=== PATIENT | female | born 1940 | race Caucasian/White ===

== ENCOUNTER 2016-08-16 17:22 | Observation (INO) | payer OTHER, MEDICAID ==
--- NOTE | 2016-08-16 17:42 | DR.NAUSEAF ---
HPI - Time Seen Time seen: 17:40 - Primary Care Physician Primary Care Physician: CHARLIE SAMPSON - HPI Comment HPI Comment: PATIENT IS DIZZY AND WEAK. NOT HOLDING DOWN FLUID OR MEDICATIONS. SHE IS VOMITING AND HAVING ABDOMINAL PAIN. ALSO COUGHING, PRODUCTIVE, YELLOW SPUTUM. SHE HAS LOW GRADE FEVER. CHEST IS HURTING. SHE IS BEING UNSTEADY AT HOME ALL DYA. - Complaints Chief Complaint Doctors Comments: NAUSEA, VOMITING, ABDOMINAL PAIN AND DIZZINESS TIMES 2 DAYS. Chief Complaint:: PT C/O , CCC, DIZZY , BEING UNSTEDY , AND VOMITTING... - Reviewed Nurses Notes Reviewed: Yes - Source History Provided: Patient - Mode of Arrival Mode of Arrival: Wheelchair - Timing Onset of Chief Complaint: 08/15/16 - Context Onset: Spontaneous Recent: None History of: None - Quality Quality: Bilious - Associated Signs and Symptoms Abdominal Pain Quality: Cramping Abdominal Pain Location: Diffuse Symptoms: Fever PMH - PMH Past Medical History: Yes Past Medical History: Anemia, Arthritis, COPD, Coronary Artery Disease, Dyslipidemia, GERD, Hypertension, OR Past Surgical History: Yes Surgical History: Abdominal Surgery, Appendectomy, Cholecystectomy, Hysterectomy , Ortho Surgery, Other - Family History History of Family Medical Conditions: No Family Medical History: Cancer, Hypertension - Social History Does patient currently use any type of tobacco product: No Have you used tobacco products in the last 12 months: No Type of Tobacco Use: None Does any household member use tobacco: No Alcohol Use: None Do you use any recreational Drugs:: No Lives With: Alone Lives Where: Home - infectious screening In the last 2 months have you had wt loss of >10#?: NO Have you had fever, night sweats or hemotysis?: No Have you traveled outside the country in the last 6 months?: No Isolation: Standard ROS - Review of Systems Constitutional: Fever, Weakness, Fatigue, Loss of Appetite Eyes: No Symptoms Reported. negative: Eye Pain, Discharge ENTM: Nose Congestion. negative: Ear Pain, Nose Discharge, Throat Pain Respiratoy: Productive Cough (YELLOW SPUTUM), Short of Breath. negative: Wheezing, Hemoptysis Cardiovascular: Chest Pain. negative: Edema, Syncope Gastrointestinal/Abdominal: Abdominal Pain, Nausea, Vomiting Genitourinary: No Symptoms Reported. negative: Dysuria, Frequency, Hematuria Neurological: Headache, Weakness, Dizziness Musculoskeletal: Muscle Pain Integumentary: Dryness Hematologic/Lymphatic: Easy Bruising Endocrine: Increased Thirst, Decreased Appetite. negative: Flushing All Other Systems: Reviewed and Negative PE - Vital Signs Vitals: Temperature 97.5 F Pulse Rate 79 Respiratory Rate 20 Blood Pressure [Left Arm] 187/73 Blood Pressure [Right Arm] 180/73 Blood Pressure 152/80 O2 Sat by Pulse Oximetry 100 - General Limitations: No Limitations General Appearance: Alert - Head Head Exam: Normal Inspection - Eyes Eye exam: Normal Appearance - ENT ENT Exam: Normal External Ear Exam - Neck Neck Exam: Trachea Midline. negative: Tenderness, Meningismus, Lymphadenopathy - Chest Chest Inspection: Symmetric Chest Wall Rise - Respiratory Respiratory Exam: Normal Lung Sounds Bilat Respiratory Exam: Bilateral Rhonchi, Lower Rhonchi - Cardiovascular Cardiovascular Exam: Regular Rate, Normal Rhythm, Normal Heart Sounds - Abdominal Exam Abdominal Exam: Normal Bowel Sounds, Soft, Tenderness Abdominal Tenderness: Diffuse, Moderate - Rectal Rectal Exam: Deferred - External Exam: Female: Deferred : Speculum Exam (Female): Deferred : Bimanual Exam (female): Deferred - Extremities Extremities Exam: Normal Inspection - Back Back Exam: Paraspinal Tenderness - Neurologic Neurological Exam: Alert, Oriented X3 - Psychiatric Psychiatric Exam: Anxious - Skin Skin Exam: Dry MDM - Additional Information Obtained Additional Information Obtained From: Family - Differential Diagnosis Differential Diagnosis: Considerations may Include:: Bowel Obstruction, Gastritis, Pancreatitis, Urinary Tract Infection Course - Treatment Treatment: SEE ORDERS - Consultation Consultation Comments: DISCUSS PATIENT WITH DR. GUERRA. HE WILL ADMIT PATIENT. - Education/Counseling Education/Counseling: Patient, Family, Education Educated On: Treatment, Diagnosis, Needs for Follow Up ROR - Labs Reviewed Laboratory Results Reviewed?: Yes Result Diagrams: 08/16/16 18:20 08/16/16 18:20 Laboratory: WBC 12.7 X10^3/uL (3.6-10.0) H 08/16/16 18:20 RBC 4.23 X10^6/uL (3.5-5.4) 08/16/16 18:20 Hgb 12.1 g/dL (12.0-16.0) 08/16/16 18:20 Hct 36.9 % (36.0-47.0) 08/16/16 18:20 MCV 87.1 fL (80.0-100.0) 08/16/16 18:20 MCH 28.5 pg (27.0-34.0) 08/16/16 18:20 MCHC 32.8 g/dL (33.0-35.0) L 08/16/16 18:20 RDW 16.7 % (11.6-16.5) H 08/16/16 18:20 Plt Count 288 X10^3/uL (150.0-450.0) 08/16/16 18:20 MPV 7.0 fL (7.4-11.0) L 08/16/16 18:20 Neut % 73.7 % (42.0-75.0) 08/16/16 18:20 Lymph % 16.9 % (21.0-51.0) L 08/16/16 18:20 [place] % 8.3 % (0.0-13.0) 08/16/16 18:20 Eos % 0.4 % (0.9-2.9) L 08/16/16 18:20 Baso % 0.7 % (0.2-1.0) 08/16/16 18:20 Neut # 9.4 x10^3/uL (2.2-4.8) H 08/16/16 18:20 Lymph # 2.1 X10^3/uL (1.3-2.9) 08/16/16 18:20 [place] # 1.1 x10^3/uL (0.3-0.8) H 08/16/16 18:20 Eos # 0.0 x10^3/uL (0.0-0.2) 08/16/16 18:20 Baso # 0.1 X10^3/uL (0.0-0.1) 08/16/16 18:20 Absolute Nucleated RBC 0.0 /100WBC 08/16/16 18:20 Sodium 137 mmol/L (136-145) 08/16/16 18:20 Corrected Sodium 137 mmol/L (136-145) 08/16/16 18:20 Potassium 5.7 mmol/L (3.5-5.1) H 08/16/16 18:20 Chloride 101 mmol/L (98-107) 08/16/16 18:20 Carbon Dioxide 27.7 mmol/L (21-32) 08/16/16 18:20 BUN 38 mg/dL (7-18) H 08/16/16 18:20 Creatinine 1.17 mg/dL (0.55-1.02) H 08/16/16 18:20 Est GFR (MDRD) Af Amer 58 (>60) L 08/16/16 18:20 Est GFR (MDRD) Non-Af 48 (>60) L 08/16/16 18:20 Glucose 120 mg/dL (65-99) H 08/16/16 18:20 Calcium 8.9 mg/dL (8.5-10.1) 08/16/16 18:20 Corrected Calcium 9.6 mg/dL (8.5-10.1) 08/16/16 18:20 Total Bilirubin 0.30 mg/dL (0.2-1.0) 08/16/16 18:20 AST 18 Units/L (15-37) 08/16/16 18:20 ALT 49 Units/L (12-78) 08/16/16 18:20 Alkaline Phosphatase 121 Units/L (46-116) H 08/16/16 18:20 Creatine Kinase 55 Units/L (26-192) 08/16/16 18:20 CK-MB (CK-2) 1.2 ng/mL (0-4.0) 08/16/16 18:20 CK/CKMB % Calc 2.2 % (<4) 08/16/16 18:20 Troponin I < 0.02 ng/mL (0-1.5) 08/16/16 18:20 Total Protein 7.1 g/dL (6.4-8.2) 08/16/16 18:20 Albumin 3.1 g/dL (3.4-5.0) L 08/16/16 18:20 Globulin 4.0 g/dL (2.5-4.5) 08/16/16 18:20 Albumin/Globulin Ratio 0.8 Ratio (1.1-2.1) L 08/16/16 18:20 Specimen Type Clean catch urine 08/16/16 19:21 Urine Color Yellow (YELLOW) 08/16/16 19:21 Urine Appearance Hazy (CLEAR) 08/16/16 19:21 Urine pH 6.0 (5.0 - 8.0) 08/16/16 19:21 Ur Specific [place] 1.010 (1.000-1.030) 08/16/16 19:21 Urine Protein 2+ (NEGATIVE) 08/16/16 19:21 Urine Glucose (UA) Negative (NEGATIVE) 08/16/16 19:21 Urine Ketones Negative (NEGATIVE) 08/16/16 19:21 Urine Occult Blood 3+ (NEGATIVE) 08/16/16 19:21 Urine Nitrite Negative (NEGATIVE) 08/16/16 19:21 Urine Bilirubin Negative (NEGATIVE) 08/16/16 19:21 Urine Urobilinogen Normal (NORMAL) 08/16/16 19:21 Ur Leukocyte Esterase 3+ (NEGATIVE) 08/16/16 19:21 Urine RBC 0-3 /HPF (NEGATIVE) 08/16/16 19:21 Urine WBC 11-20 /HPF (NEGATIVE) 08/16/16 19:21 Ur Squamous Epith Cells Rare /HPF (NEGATIVE) 08/16/16 19:21 Urine Bacteria 4+ /HPF (NEGATIVE) 08/16/16 19:21 Ur Culture Indicated? Yes/culture set up 08/16/16 19:21 - XRAY XRAY Interpreted by: Radiologist XRAY Findings: REPORT DISCUSS WITH PATIENT. - EKG Rhythm: NSR (EKG NOTED.) - Diagnosis Discharge Problem: Generalized weakness, Bronchitis Abdominal pain Qualifiers: Abdominal location: generalized Qualified Code(s): R10.84 - Generalized abdominal pain Chest pain Qualifiers: Chest pain type: other chest pain Qualified Code(s): R07.89 - Other chest pain Gastritis Qualifiers: Gastritis type: other gastritis Chronicity: acute Gastritis bleeding: without bleeding Qualified Code(s): K29.00 - Acute gastritis without bleeding - Discharge Plan Disposition: 09 ADMITTED INPATIENT Condition: Stable - Follow ups/Referrals - Instructions
[2016-08-16] MEDS ORDERED: NS 1000 ML 1,000 ML IV ONE (17:56)
[2016-08-16] MEDS ORDERED: ZOFRAN INJ 4 MG VIAL IVP ONE (17:56)
[2016-08-16] MEDS ORDERED: NS 1000 ML 1,000 ML ONE ×2 (17:58→20:04)
[2016-08-16] MEDS ORDERED: ZOFRAN INJ 4 MG VIAL ONE (17:58)
[2016-08-16 18:26] LABS: BASOPHILS # (AUTO) 0.1 X10^3/uL (0.0-0.1); BASOPHILS % (AUTO) 0.7 % (0.2-1.0); EOSINOPHILS % (AUTO) 0.4 % (0.9-2.9); HEMATOCRIT 36.9 % (36.0-47.0); HEMOGLOBIN 12.1 g/dL (12.0-16.0); LYMPHOCYTES # (AUTO) 2.1 X10^3/uL (1.3-2.9); LYMPHOCYTES % (AUTO) 16.9 % (21.0-51.0); MEAN CORPUSCULAR HEMOGLOBIN 28.5 pg (27.0-34.0); MEAN CORPUSCULAR HGB CONC 32.8 g/dL (33.0-35.0); MEAN CORPUSCULAR VOLUME 87.1 fL (80.0-100.0); MONOCYTES # (AUTO) 1.1 x10^3/uL (0.3-0.8); MONOCYTES % (AUTO) 8.3 % (0.0-13.0); NEUTROPHILS # (AUTO) 9.4 x10^3/uL (2.2-4.8); NEUTROPHILS % (AUTO) 73.7 % (42.0-75.0); PLATELET COUNT 288 X10^3/uL (150.0-450.0); RED BLOOD COUNT 4.23 X10^6/uL (3.5-5.4); RED CELL DISTRIBUTION WIDTH 16.7 % (11.6-16.5); WHITE BLOOD COUNT 12.7 X10^3/uL (3.6-10.0)
[2016-08-16 18:40] LABS: BLOOD UREA NITROGEN 38 mg/dL (7-18); CALCIUM 8.9 mg/dL (8.5-10.1); CARBON DIOXIDE 27.7 mmol/L (21-32); CHLORIDE 101 mmol/L (98-107); COR NA(FOR HYPERGLY) 137 mmol/L (136-145); CREATININE 1.17 mg/dL (0.55-1.02); GLUCOSE 120 mg/dL (65-99); SODIUM 137 mmol/L (136-145); TROPONIN I < 0.02 ng/mL (0-1.5); eGFR BLACK RACES 58 (>60); eGFR NON BLACK RACES 48 (>60)
[2016-08-16 18:55] LABS: ALANINE AMINOTRANSFERASE 49 Units/L (12-78); ALBUMIN 3.1 g/dL (3.4-5.0); ALKALINE PHOSPHATASE 121 Units/L (46-116); ASPARTATE AMINO TRANSFERASE 18 Units/L (15-37); CKMB % 2.2 % (<4); COR CA(FOR HYPOALB) 9.6 mg/dL (8.5-10.1); CREATINE KINASE 55 Units/L (26-192); CREATINE KINASE MB 1.2 ng/mL (0-4.0); TOTAL PROTEIN 7.1 g/dL (6.4-8.2)
--- NOTE | 2016-08-16 18:57 | RAD ---
HISTORY: Abdominal pain and nausea and vomiting Study: Acute abdominal series Comparison: Chest x-ray of June 14 Findings: The trachea is midline. The cardiac silhouette is unremarkable. The lungs are clear without focal infiltrate or effusion.There is a right shoulder prosthesis.. Flat plate and upright evaluation of the abdomen demonstrates a normal bowel gas pattern. No pathol ogical soft tissue mass or calcification can be observed. There are bilateral hip prostheses unchang ed in appearance. There is levoscoliosis of the lumbar spine with degenerative disc disease. There a re cholecystectomy clips. IMPRESSION: 1. No acute cardiopulmonary disease. 2. No evidence for acute abdominal pathology identified. Reported By:
[2016-08-16 19:43] LABS: BILIRUBIN,URINE NEGATIVE (NEGATIVE); BLOOD/HEMOGLOBIN,URINE 3+ (NEGATIVE); GLUCOSE, URINE NEGATIVE (NEGATIVE); KETONES,URINE NEGATIVE (NEGATIVE); LEUKOCYTE ESTERASE ,URINE 3+ (NEGATIVE); NITRITES,URINE NEGATIVE (NEGATIVE); PROTEIN,URINE 2+ (NEGATIVE); UROBILINOGEN,URINE NORMAL (NORMAL)
[2016-08-16] MEDS ORDERED: ZOFRAN INJ 4 MG VIAL IVP PRN (19:53)
[2016-08-16 19:58] LABS: APPEARANCE,URINE HAZY (CLEAR); COLOR,URINE YELLOW (YELLOW)
[2016-08-16 19:59] LABS: BACTERIA,URINE 4+ /HPF (NEGATIVE); RBC,URINE 0-3 /HPF (NEGATIVE); SQUAMOUS EPITHELIAL CELL,UR RARE /HPF (NEGATIVE)
[2016-08-16] MEDS ORDERED: ROCEPHIN VIAL 1 GM 1 GM in NS 50 ML IV + SPIKE MINIBAG* 50 ML IV SCH (20:00)
[2016-08-16] MEDS ORDERED: ROCEPHIN 1 GM IV ONE (20:04)
[2016-08-16] MEDS ORDERED: [UNRECOGNIZED DRUG - OTHER] IV ONE (20:04)
[2016-08-16] MEDS: NS 1000 ML 1,000 ML IV SCH (20:07)
[2016-08-16] MEDS ORDERED: NS 50 ML IV + SPIKE MINIBAG* 50 ML IV ONE (20:11)
[2016-08-16] MEDS ORDERED: ROCEPHIN VIAL 1 GM ONE (20:11)
[2016-08-16] MEDS: ROCEPHIN VIAL 1 GM 1 GM in NS 50 ML IV + SPIKE MINIBAG* 50 ML IV SCH (20:12)
[2016-08-16 22:17] VITALS: BMI 28.6
[2016-08-17 00:23] LABS: CKMB % 1.8 % (<4); CREATINE KINASE 60 Units/L (26-192); CREATINE KINASE MB 1.1 ng/mL (0-4.0); TROPONIN I < 0.02 ng/mL (0-1.5)
[2016-08-17] MEDS: NS 1000 ML 1,000 ML IV SCH (05:27)
[2016-08-17 06:23] LABS: ALANINE AMINOTRANSFERASE 38 Units/L (12-78); ALBUMIN 2.4 g/dL (3.4-5.0); ALKALINE PHOSPHATASE 87 Units/L (46-116); ASPARTATE AMINO TRANSFERASE 16 Units/L (15-37); BLOOD UREA NITROGEN 25 mg/dL (7-18); CALCIUM 8.1 mg/dL (8.5-10.1); CARBON DIOXIDE 26.1 mmol/L (21-32); CHLORIDE 108 mmol/L (98-107); COR CA(FOR HYPOALB) 9.4 mg/dL (8.5-10.1); CREATININE 0.91 mg/dL (0.55-1.02); GLUCOSE 92 mg/dL (65-99); SODIUM 140 mmol/L (136-145); TOTAL PROTEIN 5.6 g/dL (6.4-8.2); eGFR BLACK RACES > 60 (>60); eGFR NON BLACK RACES > 60 (>60)
[2016-08-17 06:26] LABS: BASOPHILS % (AUTO) 0.4 % (0.2-1.0); EOSINOPHILS # (AUTO) 0.1 x10^3/uL (0.0-0.2); EOSINOPHILS % (AUTO) 0.9 % (0.9-2.9); LYMPHOCYTES % (AUTO) 26.7 % (21.0-51.0); MEAN CORPUSCULAR HEMOGLOBIN 29.1 pg (27.0-34.0); MEAN CORPUSCULAR HGB CONC 33.5 g/dL (33.0-35.0); MEAN PLATELET VOLUME 7.2 fL (7.4-11.0); MONOCYTES # (AUTO) 0.6 x10^3/uL (0.3-0.8); MONOCYTES % (AUTO) 8.7 % (0.0-13.0); NEUTROPHILS # (AUTO) 4.7 x10^3/uL (2.2-4.8); NEUTROPHILS % (AUTO) 63.3 % (42.0-75.0); PLATELET COUNT 224 X10^3/uL (150.0-450.0); RED BLOOD COUNT 3.44 X10^6/uL (3.5-5.4); RED CELL DISTRIBUTION WIDTH 16.3 % (11.6-16.5); WHITE BLOOD COUNT 7.4 X10^3/uL (3.6-10.0)
[2016-08-17 06:36] LABS: CKMB % 1.8 % (<4); CREATINE KINASE 63 Units/L (26-192); CREATINE KINASE MB 1.1 ng/mL (0-4.0); TROPONIN I < 0.02 ng/mL (0-1.5)
[2016-08-17] MEDS: ROCEPHIN VIAL 1 GM 1 GM in NS 50 ML IV + SPIKE MINIBAG* 50 ML IV SCH (08:18)
[2016-08-17] MEDS: PEPCID 20 MG IV PREMIX* 20 MG/50 ML BAG IV SCH (10:12)
[2016-08-17] MEDS: PROTONIX INJ 40 MG VIAL IVP SCH (10:12)
[2016-08-17] MEDS ORDERED: DUONEB 0.5 MG/3 MG NEB PRN (10:12)
[2016-08-17] MEDS: NORVASC TAB 5 MG PO SCH (11:52)
[2016-08-17] MEDS: COLACE CAP 100 MG PO SCH ×2 (11:52→20:57)
[2016-08-17] MEDS: ULTRAM PO PRN ×2 (11:53→17:42)
[2016-08-17] MEDS: PLAVIX PO SCH (11:53)
[2016-08-17] MEDS: ZESTRIL TAB 10 MG PO SCH ×2 (11:53→20:57)
[2016-08-17] MEDS: COREG TAB 25 MG PO SCH ×2 (11:53→20:57)
[2016-08-17] MEDS: NEXIUM PO SCH (11:53)
[2016-08-17] MEDS: CRESTOR TAB 10 MG PO SCH (20:57)
[2016-08-17] MEDS: SINGULAIR TAB 10 MG PO SCH (20:58)
[2016-08-18] MEDS: NS 1000 ML 1,000 ML IV SCH ×3 (02:44→09:32)
[2016-08-18 06:40] LABS: ALANINE AMINOTRANSFERASE 34 Units/L (12-78); ALBUMIN 2.3 g/dL (3.4-5.0); ALKALINE PHOSPHATASE 83 Units/L (46-116); ASPARTATE AMINO TRANSFERASE 13 Units/L (15-37); BLOOD UREA NITROGEN 16 mg/dL (7-18); CARBON DIOXIDE 24.6 mmol/L (21-32); CHLORIDE 108 mmol/L (98-107); COR CA(FOR HYPOALB) 9.4 mg/dL (8.5-10.1); COR NA(FOR HYPERGLY) 140 mmol/L (136-145); CREATININE 0.77 mg/dL (0.55-1.02); GLUCOSE 114 mg/dL (65-99); SODIUM 140 mmol/L (136-145); TOTAL PROTEIN 5.6 g/dL (6.4-8.2); eGFR BLACK RACES > 60 (>60); eGFR NON BLACK RACES > 60 (>60)
[2016-08-18 06:43] LABS: BASOPHILS % (AUTO) 0.5 % (0.2-1.0); EOSINOPHILS # (AUTO) 0.1 x10^3/uL (0.0-0.2); HEMATOCRIT 30.7 % (36.0-47.0); HEMOGLOBIN 10.2 g/dL (12.0-16.0); LYMPHOCYTES # (AUTO) 1.8 X10^3/uL (1.3-2.9); LYMPHOCYTES % (AUTO) 26.5 % (21.0-51.0); MEAN CORPUSCULAR HEMOGLOBIN 29.1 pg (27.0-34.0); MEAN CORPUSCULAR HGB CONC 33.3 g/dL (33.0-35.0); MEAN CORPUSCULAR VOLUME 87.5 fL (80.0-100.0); MEAN PLATELET VOLUME 7.2 fL (7.4-11.0); MONOCYTES # (AUTO) 0.6 x10^3/uL (0.3-0.8); MONOCYTES % (AUTO) 8.7 % (0.0-13.0); NEUTROPHILS # (AUTO) 4.2 x10^3/uL (2.2-4.8); NEUTROPHILS % (AUTO) 63.3 % (42.0-75.0); PLATELET COUNT 223 X10^3/uL (150.0-450.0); RED BLOOD COUNT 3.51 X10^6/uL (3.5-5.4); RED CELL DISTRIBUTION WIDTH 16.2 % (11.6-16.5); WHITE BLOOD COUNT 6.7 X10^3/uL (3.6-10.0)
[2016-08-18] MEDS: PEPCID 20 MG IV PREMIX* 20 MG/50 ML BAG IV SCH (09:33)
[2016-08-18] MEDS: NEXIUM PO SCH (09:34)
[2016-08-18] MEDS: ZESTRIL TAB 10 MG PO SCH ×2 (09:34→20:23)
[2016-08-18] MEDS: PROTONIX INJ 40 MG VIAL IVP SCH (09:34)
[2016-08-18] MEDS: COLACE CAP 100 MG PO SCH ×2 (09:34→20:23)
[2016-08-18] MEDS: COREG TAB 25 MG PO SCH ×2 (09:34→20:24)
[2016-08-18] MEDS: NORVASC TAB 5 MG PO SCH ×2 (09:34→09:36)
[2016-08-18] MEDS: PLAVIX PO SCH (09:34)
[2016-08-18] MEDS: ROCEPHIN VIAL 1 GM 1 GM in NS 50 ML IV + SPIKE MINIBAG* 50 ML IV SCH (10:30)
[2016-08-18] MEDS: DUONEB 0.5 MG/3 MG NEB SCH ×2 (12:02→16:16)
[2016-08-18] MEDS: ULTRAM PO PRN (15:57)
[2016-08-18] MEDS: CRESTOR TAB 10 MG PO SCH (20:23)
[2016-08-18] MEDS: SINGULAIR TAB 10 MG PO SCH (20:24)
[2016-08-19] MEDS: NS 1000 ML 1,000 ML IV SCH ×3 (00:04→08:39)
[2016-08-19] MEDS: DUONEB 0.5 MG/3 MG NEB SCH ×3 (00:55→05:39)
[2016-08-19] MEDS: ULTRAM PO PRN ×2 (01:31→10:15)
[2016-08-19] MEDS ORDERED: MILK OF MAGNESIA PO PRN (01:34)
[2016-08-19 05:01] LABS: BASOPHILS % (AUTO) 0.5 % (0.2-1.0); EOSINOPHILS # (AUTO) 0.1 x10^3/uL (0.0-0.2); EOSINOPHILS % (AUTO) 1.1 % (0.9-2.9); HEMATOCRIT 32.3 % (36.0-47.0); HEMOGLOBIN 10.8 g/dL (12.0-16.0); LYMPHOCYTES # (AUTO) 1.8 X10^3/uL (1.3-2.9); LYMPHOCYTES % (AUTO) 24.2 % (21.0-51.0); MEAN CORPUSCULAR HEMOGLOBIN 29.2 pg (27.0-34.0); MEAN CORPUSCULAR HGB CONC 33.4 g/dL (33.0-35.0); MEAN CORPUSCULAR VOLUME 87.2 fL (80.0-100.0); MONOCYTES # (AUTO) 0.7 x10^3/uL (0.3-0.8); MONOCYTES % (AUTO) 9.3 % (0.0-13.0); NEUTROPHILS # (AUTO) 4.8 x10^3/uL (2.2-4.8); NEUTROPHILS % (AUTO) 64.9 % (42.0-75.0); PLATELET COUNT 240 X10^3/uL (150.0-450.0); RED CELL DISTRIBUTION WIDTH 15.9 % (11.6-16.5); WHITE BLOOD COUNT 7.4 X10^3/uL (3.6-10.0)
[2016-08-19 05:18] LABS: ALANINE AMINOTRANSFERASE 30 Units/L (12-78); ALBUMIN 2.4 g/dL (3.4-5.0); ALKALINE PHOSPHATASE 93 Units/L (46-116); ASPARTATE AMINO TRANSFERASE 14 Units/L (15-37); BLOOD UREA NITROGEN 15 mg/dL (7-18); CALCIUM 8.1 mg/dL (8.5-10.1); CARBON DIOXIDE 23.2 mmol/L (21-32); CHLORIDE 108 mmol/L (98-107); COR CA(FOR HYPOALB) 9.4 mg/dL (8.5-10.1); COR NA(FOR HYPERGLY) 141 mmol/L (136-145); CREATININE 0.85 mg/dL (0.55-1.02); GLUCOSE 113 mg/dL (65-99); SODIUM 141 mmol/L (136-145); TOTAL PROTEIN 5.9 g/dL (6.4-8.2); eGFR BLACK RACES > 60 (>60); eGFR NON BLACK RACES > 60 (>60)
--- NOTE | 2016-08-19 06:41 | RAD ---
PA and lateral Chest Indication: Bronchitis with shortness of breath Comparison: 08/16/2016 Findings: The trachea is midline. The cardiac silhouette is unremarkable. The lungs remain hyperexpanded with coarsening of the interstitium consistent with COPD. The lungs are clear without focal infiltrate o r effusion. The bony thorax is unremarkable. IMPRESSION: 1. No acute cardiopulmonary abnormality. Reported By:
[2016-08-19] MEDS: PROTONIX INJ 40 MG VIAL IVP SCH ×2 (08:39→08:42)
[2016-08-19] MEDS: PLAVIX PO SCH (08:40)
[2016-08-19] MEDS: NEXIUM PO SCH (08:40)
[2016-08-19] MEDS: ZESTRIL TAB 10 MG PO SCH (08:40)
[2016-08-19] MEDS: PEPCID 20 MG IV PREMIX* 20 MG/50 ML BAG IV SCH (08:40)
[2016-08-19] MEDS: COLACE CAP 100 MG PO SCH (08:40)
[2016-08-19] MEDS: NORVASC TAB 5 MG PO SCH ×2 (08:41)
[2016-08-19] MEDS: COREG TAB 25 MG PO SCH (08:41)
[2016-08-19] MEDS: ROCEPHIN VIAL 1 GM 1 GM in NS 50 ML IV + SPIKE MINIBAG* 50 ML IV SCH (09:15)
[2016-08-19 10:16] VITALS: BP 181/73
== END 2016-08-19 11:35 | disposition home health service (06) ==
LOC: ER 17:36 → MED/SURG 19:45
PROVIDERS: ADMIT Internal Medicine; ATTEND Internal Medicine
DX: R10.84 Generalized abdominal pain (principal); K29.00 Acute gastritis without bleeding; R07.89 Other chest pain; J40 Bronchitis, not specified as acute or chronic; R42 Dizziness and giddiness; R11.2 Nausea with vomiting, unspecified; E78.2 Mixed hyperlipidemia; K21.9 Gastro-esophageal reflux disease without esophagitis; I25.10 Atherosclerotic heart disease of native coronary artery without angina pectoris; M13.89 Other specified arthritis, multiple sites; R06.02 Shortness of breath; B96.1 Klebsiella pneumoniae [K. pneumoniae] as the cause of diseases classified elsewhere; D64.89 Other specified anemias; E87.5 Hyperkalemia; R94.4 Abnormal results of kidney function studies
CPT/HCPCS: 36415; 71020; 74022; 80053; 81001; 82550; 82553; 84484; 85025; 87086; 87088; 87186; 93005; 94640; 94760; 96365; 96367; 96374; 96375; 99284; A4222; C9113; S0028; G0378; J0696; J2405; J7620

== ENCOUNTER → 2016-09-17 | Outpatient (CLI) | payer OTHER, MEDICAID ==
[2016-08-19 10:16] VITALS: BP 181/73
--- NOTE | 2016-09-18 15:36 | MRI ---
HISTORY: Lumbar compression fracture, chronic low back pain Study: MRI lumbar spine without contrast Comparison: July 19, 2016 Technique: Multiplanar multi-sequence MRI of the lumbar spine was obtained. Sagittal T1, sagittal T 2, and stir weighted images, axial T1, and axial T2 images were obtained. Findings: There are compression fractures of L2 and L3 unchanged from the prior examination but with signal ch aracteristics suggesting that the L2 fracture is remote and the L3 fracture to be more recent.. Ther e is a mild compression of the superior aspect of L4 with signal characteristics suggesting that it is recent . There is lumbar levoscoliosis present. The lumbar spine demonstrates otherwise normal al ignment with the expected signal characteristics of the bone marrow. The conus of the cord terminat es normally. T12 -- L1: No evidence for compressive disc disease. The neural foramina are patent. L1 -- L2: Broad-based disk bulging effaces the thecal sac and contributes to foraminal narrowing eric aterally. Mild facet arthropathy is present bilaterally. L2 -- L3: Broad-based disk bulging effaces the thecal sac and contributes along with bilateral facet arthropathy to lateral recess and foraminal narrowing bilaterally L3 -- L4: Mild broad-based disk bulging causes mild thecal sac effacement and contributes along with spondylitic change and facet arthropathy to foraminal narrowing bilaterally. L4 -- L5: Broad-based disc protrusion contributes along with pedicular shortening. Bilateral facet a rthropathy and ligamentous hypertrophy to a relative spinal stenosis with severe lateral recess and foraminal narrowing bilaterally left worse than right. L5 -- S1: Broad-based concentric disk bulging contributes along with spondylitic change to marked la teral recess and foraminal narrowing on the left. The right neural foramen is patent. IMPRESSION: Compression fractures of L2, L3, and L4 as described with the L2 fracture having signal characterist ics suggesting that it is old and the L3 and L4 fractures more recent. The L4 fracture did not appea r to have been present on the prior examination. Evaluation of each disc level detailed above Reported By:
== END ==
LOC: RAD 14:01
PROVIDERS: ATTEND Specialist
DX: S32.020A Wedge compression fracture of second lumbar vertebra, initial encounter for closed fracture (principal); S32.030A Wedge compression fracture of third lumbar vertebra, initial encounter for closed fracture; S32.040A Wedge compression fracture of fourth lumbar vertebra, initial encounter for closed fracture; X58.XXXA Exposure to other specified factors, initial encounter
CPT/HCPCS: 72148

== ENCOUNTER 2016-10-24 16:32 | Inpatient (IN) | payer OTHER, MEDICAID ==
[2016-10-24 19:28] LABS: BASOPHILS % (AUTO) 0.6 % (0.2-1.0); EOSINOPHILS # (AUTO) 0.1 x10^3/uL (0.0-0.2); EOSINOPHILS % (AUTO) 1.8 % (0.9-2.9); HEMATOCRIT 30.2 % (36.0-47.0); HEMOGLOBIN 10.2 g/dL (12.0-16.0); LYMPHOCYTES # (AUTO) 1.6 X10^3/uL (1.3-2.9); LYMPHOCYTES % (AUTO) 19.9 % (21.0-51.0); MEAN CORPUSCULAR HEMOGLOBIN 30.6 pg (27.0-34.0); MEAN CORPUSCULAR HGB CONC 33.9 g/dL (33.0-35.0); MEAN CORPUSCULAR VOLUME 90.3 fL (80.0-100.0); MEAN PLATELET VOLUME 7.4 fL (7.4-11.0); MONOCYTES # (AUTO) 0.7 x10^3/uL (0.3-0.8); MONOCYTES % (AUTO) 9.1 % (0.0-13.0); NEUTROPHILS # (AUTO) 5.5 x10^3/uL (2.2-4.8); NEUTROPHILS % (AUTO) 68.6 % (42.0-75.0); PLATELET COUNT 296 X10^3/uL (150.0-450.0); RED BLOOD COUNT 3.35 X10^6/uL (3.5-5.4); RED CELL DISTRIBUTION WIDTH 14.9 % (11.6-16.5)
[2016-10-24 19:34] LABS: ALANINE AMINOTRANSFERASE 15 Units/L (12-78); ALBUMIN 2.9 g/dL (3.4-5.0); ALKALINE PHOSPHATASE 101 Units/L (46-116); ASPARTATE AMINO TRANSFERASE 13 Units/L (15-37); BLOOD UREA NITROGEN 17 mg/dL (7-18); CALCIUM 8.7 mg/dL (8.5-10.1); CARBON DIOXIDE 26.8 mmol/L (21-32); CHLORIDE 107 mmol/L (98-107); COR CA(FOR HYPOALB) 9.6 mg/dL (8.5-10.1); COR NA(FOR HYPERGLY) 141 mmol/L (136-145); CREATININE 1.08 mg/dL (0.55-1.02); GLUCOSE 115 mg/dL (65-99); SODIUM 141 mmol/L (136-145); TOTAL PROTEIN 6.5 g/dL (6.4-8.2); eGFR BLACK RACES > 60 (>60); eGFR NON BLACK RACES 52 (>60)
[2016-10-24] MEDS: NS 1000 ML 1,000 ML IV SCH (19:47)
[2016-10-24 20:27] LABS: ERYTHROCYTE SEDIMENTATION RATE 33 MM/HOUR (0-20)
[2016-10-24] MEDS: FORTAZ or TAZICEF INJ 1 GM in NS 50 ML IV + SPIKE MINIBAG* 50 ML IV SCH (21:02)
[2016-10-24] MEDS: VANCOMYCIN 1 GM PREMIX (ADDVANTAGE) 250 ML IV SCH (21:03)
[2016-10-24] MEDS: NORCO 5/325 MG TAB PO PRN (21:04)
--- NOTE | 2016-10-24 23:52 | RAD ---
Right hip, two views Indication: Right hip pain and swelling. Comparison: 07/12/2016 Findings: Evaluation of fine bony detail is somewhat limited by generalized osteopenia and superimpo sed soft tissues. No obvious acute fracture or subluxation of the right hip identified. Right hip ar throplasty remains in satisfactory alignment. Old left superior and inferior pubic ramus fractures a re noted. Impression: No obvious acute right hip injury identified. Reported By:
--- NOTE | 2016-10-24 23:56 | VAS ---
HISTORY: Bilateral lower extremity cellulitis Study: Bilateral lower extremity venous Doppler ultrasound Comparison: None TECHNIQUE: Multiple kline scale and color flow Doppler images of the deep venous system were obtaine d of the right and left lower extremity. FINDINGS: The deep venous system of the right and left lower extremities were evaluated from the level of the common femoral vein through the popliteal vein. Normal color flow and augmentation can be observed. In addition, normal compression is seen throughout the deep venous system. IMPRESSION: 1. Negative for DVT. Reported By:
[2016-10-25] MEDS: VANCOMYCIN 1 GM PREMIX (ADDVANTAGE) 250 ML IV SCH ×3 (00:03→22:59)
[2016-10-25] MEDS: FORTAZ or TAZICEF INJ 1 GM in NS 50 ML IV + SPIKE MINIBAG* 50 ML IV SCH ×4 (00:04→22:13)
[2016-10-25] MEDS ORDERED: ZOFRAN INJ 4 MG VIAL IVP PRN (02:56)
[2016-10-25 05:40] LABS: BASOPHILS % (AUTO) 0.6 % (0.2-1.0); EOSINOPHILS # (AUTO) 0.1 x10^3/uL (0.0-0.2); EOSINOPHILS % (AUTO) 1.6 % (0.9-2.9); HEMATOCRIT 26.1 % (36.0-47.0); HEMOGLOBIN 8.8 g/dL (12.0-16.0); LYMPHOCYTES # (AUTO) 1.6 X10^3/uL (1.3-2.9); LYMPHOCYTES % (AUTO) 26.1 % (21.0-51.0); MEAN CORPUSCULAR HEMOGLOBIN 30.6 pg (27.0-34.0); MEAN CORPUSCULAR HGB CONC 33.7 g/dL (33.0-35.0); MEAN CORPUSCULAR VOLUME 90.9 fL (80.0-100.0); MEAN PLATELET VOLUME 7.4 fL (7.4-11.0); MONOCYTES # (AUTO) 0.6 x10^3/uL (0.3-0.8); MONOCYTES % (AUTO) 9.3 % (0.0-13.0); NEUTROPHILS # (AUTO) 3.8 x10^3/uL (2.2-4.8); NEUTROPHILS % (AUTO) 62.4 % (42.0-75.0); PLATELET COUNT 229 X10^3/uL (150.0-450.0); RED BLOOD COUNT 2.87 X10^6/uL (3.5-5.4); RED CELL DISTRIBUTION WIDTH 14.8 % (11.6-16.5); WHITE BLOOD COUNT 6.1 X10^3/uL (3.6-10.0)
[2016-10-25 06:34] LABS: ALANINE AMINOTRANSFERASE 12 Units/L (12-78); ALBUMIN 2.2 g/dL (3.4-5.0); ALKALINE PHOSPHATASE 82 Units/L (46-116); ASPARTATE AMINO TRANSFERASE 12 Units/L (15-37); BLOOD UREA NITROGEN 14 mg/dL (7-18); CARBON DIOXIDE 25.1 mmol/L (21-32); CHLORIDE 110 mmol/L (98-107); COR CA(FOR HYPOALB) 9.4 mg/dL (8.5-10.1); CREATININE 0.88 mg/dL (0.55-1.02); GLUCOSE 103 mg/dL (65-99); SODIUM 143 mmol/L (136-145); TOTAL PROTEIN 5.2 g/dL (6.4-8.2); eGFR BLACK RACES > 60 (>60); eGFR NON BLACK RACES > 60 (>60)
[2016-10-25] MEDS: NORCO 5/325 MG TAB PO PRN ×3 (06:41→19:25)
[2016-10-25 06:51] LABS: ERYTHROCYTE SEDIMENTATION RATE 20 MM/HOUR (0-20)
[2016-10-25] MEDS: LASIX IVP SCH ×2 (10:31→22:14)
[2016-10-25] MEDS: ALBUMIN HUMAN 25%- 100ML 100 ML IV SCH (10:35)
[2016-10-25] MEDS: NS 1000 ML 1,000 ML IV SCH (10:35)
[2016-10-25 22:31] LABS: CREATININE 1.17 mg/dL (0.55-1.02); VANCOMYCIN,TROUGH 22.6 ug/mL (15-20)
[2016-10-25] MEDS: NexIUM PO SCH (22:57)
[2016-10-26] MEDS: NORCO 5/325 MG TAB PO PRN ×4 (01:33→22:28)
[2016-10-26] MEDS: FORTAZ or TAZICEF INJ 1 GM in NS 50 ML IV + SPIKE MINIBAG* 50 ML IV SCH ×3 (05:42→21:12)
[2016-10-26 06:18] LABS: ALANINE AMINOTRANSFERASE 13 Units/L (12-78); ALBUMIN 2.7 g/dL (3.4-5.0); ALKALINE PHOSPHATASE 82 Units/L (46-116); ASPARTATE AMINO TRANSFERASE 9 Units/L (15-37); BLOOD UREA NITROGEN 14 mg/dL (7-18); CALCIUM 8.2 mg/dL (8.5-10.1); CARBON DIOXIDE 28.4 mmol/L (21-32); CHLORIDE 108 mmol/L (98-107); COR CA(FOR HYPOALB) 9.2 mg/dL (8.5-10.1); CREATININE 0.99 mg/dL (0.55-1.02); GLUCOSE 91 mg/dL (65-99); SODIUM 145 mmol/L (136-145); TOTAL PROTEIN 5.7 g/dL (6.4-8.2); eGFR BLACK RACES > 60 (>60); eGFR NON BLACK RACES 58 (>60)
[2016-10-26 06:21] LABS: BASOPHILS % (AUTO) 0.5 % (0.2-1.0); EOSINOPHILS # (AUTO) 0.2 x10^3/uL (0.0-0.2); EOSINOPHILS % (AUTO) 2.4 % (0.9-2.9); HEMOGLOBIN 8.8 g/dL (12.0-16.0); LYMPHOCYTES # (AUTO) 1.7 X10^3/uL (1.3-2.9); MEAN CORPUSCULAR HEMOGLOBIN 31.8 pg (27.0-34.0); MEAN CORPUSCULAR HGB CONC 35.2 g/dL (33.0-35.0); MEAN CORPUSCULAR VOLUME 90.2 fL (80.0-100.0); MEAN PLATELET VOLUME 7.6 fL (7.4-11.0); MONOCYTES # (AUTO) 0.8 x10^3/uL (0.3-0.8); MONOCYTES % (AUTO) 11.4 % (0.0-13.0); NEUTROPHILS # (AUTO) 4.1 x10^3/uL (2.2-4.8); NEUTROPHILS % (AUTO) 60.7 % (42.0-75.0); PLATELET COUNT 234 X10^3/uL (150.0-450.0); RED BLOOD COUNT 2.77 X10^6/uL (3.5-5.4); RED CELL DISTRIBUTION WIDTH 14.8 % (11.6-16.5); WHITE BLOOD COUNT 6.8 X10^3/uL (3.6-10.0)
[2016-10-26] MEDS: VANCOMYCIN HCL 500 MG VIAL 750 MG in D5W 250 ML IV 250 ML IV SCH ×2 (09:19→21:13)
[2016-10-26] MEDS: NexIUM PO SCH (09:20)
[2016-10-26] MEDS: ALBUMIN HUMAN 25%- 100ML 100 ML IV SCH (09:20)
[2016-10-26 10:31] VITALS: BMI 27.6
[2016-10-26] MEDS: NS 1000 ML 1,000 ML IV SCH ×3 (21:15→22:16)
[2016-10-27] MEDS: FORTAZ or TAZICEF INJ 1 GM in NS 50 ML IV + SPIKE MINIBAG* 50 ML IV SCH (05:07)
[2016-10-27] MEDS: NORCO 5/325 MG TAB PO PRN ×2 (05:08→11:10)
[2016-10-27] MEDS: VANCOMYCIN HCL 500 MG VIAL 750 MG in D5W 250 ML IV 250 ML IV SCH (10:05)
[2016-10-27] MEDS: NexIUM PO SCH (10:05)
[2016-10-27] MEDS: ALBUMIN HUMAN 25%- 100ML 100 ML IV SCH (10:05)
[2016-10-27] MEDS ORDERED: LASIX PO ONE (12:40)
[2016-10-27 12:44] VITALS: BP 170/74
[2016-10-27] MEDS ORDERED: PHARMACY COMMENT IV SCH (20:45)
--- NOTE | 2016-10-29 14:15 | PCM.PROG ---
Progress Note - Progress Note for Day of Date: 10/25/16 - Subjective Subjective: Patient is a 76yo female who was admitted as a direct admit with diagnosis of cellulitis to lower extremities bilateral. Physical exam reveal 2+ edema to lower extremities, Left and right led red inflamed with warmth and bruising , Left heel has a stage 1 pressure ulcer as well and right great toe. Due to hypoalbuminemia we will give albumin IV and due to increased swelling start patient on Lasix 40mg IV BID. Vital signs this am 98.9, 74, 18, 93%, 131/ 60. Labs are within normal limits with the exception of RBC 2.87, Hgb 8.8, Hct 26.1, Chloride 110, glucose 103, Calcium 8.0, AST 12, CRP 3.50, Total Protein 5.2, Albumin 2.2, Albumin/Globulin Ratio 0.7. Hip Xray showed no acute right hip injury. Venous Doppler bilateral lower extremity negative for DVT. We are going to continue patient on her current regimen including vancomycin and follow her up in the am with repeat labs - Past Medical Family Social History Past Med/Fam/Surg Hx: No changes since H&P Allergies: Allergies Hydromorphone [From Dilaudid] Allergy (Intermediate, Verified 08/16/16 17:26) breathing problems Meperidine [From Demerol HCl] Allergy (Intermediate, Verified 08/16/16 17:26) RASH Codeine Allergy (Verified 08/16/16 17:26) Prednisone Allergy (Verified 08/16/16 17:26) - Review of Systems ROS: No change since H&P - Vital Signs and I&O's Vital Signs: Temperature 98.6 F Pulse Rate [Left Radial] 76 Pulse Rate [Right Brachial] 70 Respiratory Rate 18 Blood Pressure [Left Arm] 147/65 Blood Pressure [Right Arm] 170/74 Blood Pressure 181/73 O2 Sat by Pulse Oximetry 96 Intake and Output: Intake & Output 10/27/16 10/28/16 10/29/16 10/30/16 11:59 11:59 11:59 11:59 Intake Total 2760 1220 Output Total 1100 1200 Balance 1660 20 - Physical Exam Oriented: Normal Eyes: Normal Ear: Normal Nose: Normal Throat: Normal Respiratory: Normal Cardiovascular: Edema (Lower ext edema 2+ bilateral ) : Normal Auscultation: Bowel Sounds: Normal Palpation: Normal Tenderness: Normal Skin: Red (reveal 2+ edema to lower extremities, Left and right led red inflamed with warmth and bruising , Left heel has a stage 1 pressure ulcer as well and right great toe) Musculoskeletal: Swelling (lower extremity bilat), Tender (lower extremity bilateral), Instability Psychiatric: Normal Mood Description: Calm Affect: Normal Speech Pattern: Clear - Laboratory and Diagnostics Result Diagrams: 10/26/16 03:30 10/26/16 03:30 Labs: 10/24/16 19:05 Blood Blood Culture - Final 10/24/16 19:00 Blood Blood Culture - Final Laboratory WBC 6.8 X10^3/uL (3.6-10.0) 10/26/16 03:30 RBC 2.77 X10^6/uL (3.5-5.4) L 10/26/16 03:30 Hgb 8.8 g/dL (12.0-16.0) L 10/26/16 03:30 Hct 25.0 % (36.0-47.0) L 10/26/16 03:30 MCV 90.2 fL (80.0-100.0) 10/26/16 03:30 MCH 31.8 pg (27.0-34.0) 10/26/16 03:30 MCHC 35.2 g/dL (33.0-35.0) H 10/26/16 03:30 RDW 14.8 % (11.6-16.5) 10/26/16 03:30 Plt Count 234 X10^3/uL (150.0-450.0) 10/26/16 03:30 MPV 7.6 fL (7.4-11.0) 10/26/16 03:30 Neut % 60.7 % (42.0-75.0) 10/26/16 03:30 Lymph % 25.0 % (21.0-51.0) 10/26/16 03:30 [place] % 11.4 % (0.0-13.0) 10/26/16 03:30 Eos % 2.4 % (0.9-2.9) 10/26/16 03:30 Baso % 0.5 % (0.2-1.0) 10/26/16 03:30 Neut # 4.1 x10^3/uL (2.2-4.8) 10/26/16 03:30 Lymph # 1.7 X10^3/uL (1.3-2.9) 10/26/16 03:30 [place] # 0.8 x10^3/uL (0.3-0.8) 10/26/16 03:30 Eos # 0.2 x10^3/uL (0.0-0.2) 10/26/16 03:30 Baso # 0.0 X10^3/uL (0.0-0.1) 10/26/16 03:30 Absolute Nucleated RBC 0.1 /100WBC 10/26/16 03:30 ESR 20 MM/HOUR (0-20) 10/25/16 04:00 Sodium 145 mmol/L (136-145) 10/26/16 03:30 Corrected Sodium TNP 10/26/16 03:30 Potassium 3.6 mmol/L (3.5-5.1) 10/26/16 03:30 Chloride 108 mmol/L (98-107) H 10/26/16 03:30 Carbon Dioxide 28.4 mmol/L (21-32) 10/26/16 03:30 BUN 14 mg/dL (7-18) 10/26/16 03:30 Creatinine 0.99 mg/dL (0.55-1.02) 10/26/16 03:30 Est GFR (MDRD) Af Amer > 60 (>60) 10/26/16 03:30 Est GFR (MDRD) Non-Af 58 (>60) L 10/26/16 03:30 Glucose 91 mg/dL (65-99) 10/26/16 03:30 Calcium 8.2 mg/dL (8.5-10.1) L 10/26/16 03:30 Corrected Calcium 9.2 mg/dL (8.5-10.1) 10/26/16 03:30 Total Bilirubin 0.20 mg/dL (0.2-1.0) 10/26/16 03:30 AST 9 Units/L (15-37) L 10/26/16 03:30 ALT 13 Units/L (12-78) 10/26/16 03:30 Alkaline Phosphatase 82 Units/L (46-116) 10/26/16 03:30 C-Reactive Protein 3.50 mg/L (0-3.0) H 10/25/16 04:00 Total Protein 5.7 g/dL (6.4-8.2) L 10/26/16 03:30 Albumin 2.7 g/dL (3.4-5.0) L 10/26/16 03:30 Globulin 3.0 g/dL (2.5-4.5) 10/26/16 03:30 Albumin/Globulin Ratio 0.9 Ratio (1.1-2.1) L 10/26/16 03:30 Vancomycin Trough 22.6 ug/mL (15-20) H 10/25/16 21:05 Radiology Reviewed: Yes - Plan (1) Cellulitis of both lower extremities Status: Acute Plan: continue vancomycin, repeat labs in the am
== END 2016-10-27 16:05 | disposition home or self-care (01) | DRG 603 ==
LOC: MED/SURG 16:32
PROVIDERS: ADMIT Internal Medicine; ATTEND Internal Medicine
DX: L03.115 Cellulitis of right lower limb (principal); L03.116 Cellulitis of left lower limb; R60.0 Localized edema; M25.451 Effusion, right hip; M25.551 Pain in right hip; I10 Essential (primary) hypertension; E78.2 Mixed hyperlipidemia; D64.89 Other specified anemias; G89.4 Chronic pain syndrome; G62.89 Other specified polyneuropathies; R26.89 Other abnormalities of gait and mobility
CPT/HCPCS: 36415; 73501; 80053; 80202; 82565; 85025; 85652; 86140; 87040; 93970; A4222; P9047; J0713; J1940; J2405; J3370

== ENCOUNTER 2016-10-31 12:02 | Inpatient (IN) | payer OTHER, MEDICAID ==
[2016-10-31 13:44] LABS: BASOPHILS # (AUTO) 0.1 X10^3/uL (0.0-0.1); EOSINOPHILS # (AUTO) 0.1 x10^3/uL (0.0-0.2); EOSINOPHILS % (AUTO) 1.4 % (0.9-2.9); HEMATOCRIT 28.9 % (36.0-47.0); HEMOGLOBIN 9.9 g/dL (12.0-16.0); LYMPHOCYTES # (AUTO) 1.1 X10^3/uL (1.3-2.9); LYMPHOCYTES % (AUTO) 11.2 % (21.0-51.0); MEAN CORPUSCULAR HEMOGLOBIN 30.5 pg (27.0-34.0); MEAN CORPUSCULAR HGB CONC 34.1 g/dL (33.0-35.0); MEAN CORPUSCULAR VOLUME 89.3 fL (80.0-100.0); MEAN PLATELET VOLUME 7.2 fL (7.4-11.0); MONOCYTES # (AUTO) 0.8 x10^3/uL (0.3-0.8); MONOCYTES % (AUTO) 7.9 % (0.0-13.0); NEUTROPHILS # (AUTO) 7.5 x10^3/uL (2.2-4.8); NEUTROPHILS % (AUTO) 78.5 % (42.0-75.0); PLATELET COUNT 275 X10^3/uL (150.0-450.0); RED BLOOD COUNT 3.24 X10^6/uL (3.5-5.4); RED CELL DISTRIBUTION WIDTH 14.4 % (11.6-16.5); WHITE BLOOD COUNT 9.6 X10^3/uL (3.6-10.0)
[2016-10-31 13:52] LABS: ALANINE AMINOTRANSFERASE 18 Units/L (12-78); ALBUMIN 3.1 g/dL (3.4-5.0); ALKALINE PHOSPHATASE 87 Units/L (46-116); ASPARTATE AMINO TRANSFERASE 15 Units/L (15-37); BLOOD UREA NITROGEN 16 mg/dL (7-18); CALCIUM 8.8 mg/dL (8.5-10.1); CARBON DIOXIDE 28.7 mmol/L (21-32); CHLORIDE 100 mmol/L (98-107); COR CA(FOR HYPOALB) 9.5 mg/dL (8.5-10.1); COR NA(FOR HYPERGLY) 138 mmol/L (136-145); CREATININE 0.85 mg/dL (0.55-1.02); GLUCOSE 128 mg/dL (65-99); SODIUM 137 mmol/L (136-145); TOTAL PROTEIN 6.9 g/dL (6.4-8.2); eGFR BLACK RACES > 60 (>60); eGFR NON BLACK RACES > 60 (>60)
--- NOTE | 2016-10-31 13:56 | RAD ---
HISTORY: Shortness of breath Study: Chest two-view Comparison: August 19, 2016 Findings: The heart is enlarged. No definite congestive heart failure is noted. The lungs are hyperinflated co nsistent with COPD. No acute alveolar infiltrates are identified. No pleural effusions are present. The bony thorax is unremarkable with the exception of a right shoulder hemiarthroplasty. IMPRESSION: Cardiomegaly without definite congestive heart failure COPD Reported By:
[2016-10-31] MEDS: LASIX IVP SCH ×2 (14:12→20:25)
[2016-10-31 14:13] LABS: B-TYPE NATRIURETIC PEPTIDE 240 pg/mL (0-79)
[2016-10-31 15:13] LABS: BILIRUBIN,URINE NEGATIVE (NEGATIVE); BLOOD/HEMOGLOBIN,URINE NEGATIVE (NEGATIVE); GLUCOSE, URINE NEGATIVE (NEGATIVE); KETONES,URINE NEGATIVE (NEGATIVE); LEUKOCYTE ESTERASE ,URINE NEGATIVE (NEGATIVE); NITRITES,URINE NEGATIVE (NEGATIVE); PROTEIN,URINE NEGATIVE (NEGATIVE); UROBILINOGEN,URINE NORMAL (NORMAL)
[2016-10-31 15:20] LABS: APPEARANCE,URINE CLEAR (CLEAR); COLOR,URINE PALE YELLOW (YELLOW); RBC,URINE 0-2 /HPF (NEGATIVE); SQUAMOUS EPITHELIAL CELL,UR NEGATIVE /HPF (NEGATIVE)
[2016-10-31 15:21] LABS: AMORPHOUS SEDIMENT,UR TRACE /HPF (NEGATIVE); BACTERIA,URINE NEGATIVE /HPF (NEGATIVE)
--- NOTE | 2016-10-31 16:46 | DR.UPDATE ---
H&P Update History and Physical Update: History and Physical reviewed and patient examined. Changes noted: NO Yes with the following: See attached H&P from office patient admitted with diagnosis of CHF.
[2016-10-31] MEDS: COLACE CAP 100 MG PO SCH (20:25)
[2016-10-31] MEDS: MILK OF MAGNESIA PO SCH (20:26)
[2016-10-31] MEDS: NORCO 5/325 MG TAB PO PRN (22:20)
[2016-11-01 00:18] VITALS: BMI 27.3
[2016-11-01] MEDS: NORCO 5/325 MG TAB PO PRN ×3 (04:49→23:28)
[2016-11-01 05:23] LABS: BASOPHILS # (AUTO) 0.1 X10^3/uL (0.0-0.1); BASOPHILS % (AUTO) 0.8 % (0.2-1.0); EOSINOPHILS # (AUTO) 0.2 x10^3/uL (0.0-0.2); EOSINOPHILS % (AUTO) 2.4 % (0.9-2.9); HEMATOCRIT 27.2 % (36.0-47.0); HEMOGLOBIN 9.3 g/dL (12.0-16.0); LYMPHOCYTES # (AUTO) 1.7 X10^3/uL (1.3-2.9); MEAN CORPUSCULAR HEMOGLOBIN 30.9 pg (27.0-34.0); MEAN CORPUSCULAR HGB CONC 34.2 g/dL (33.0-35.0); MEAN CORPUSCULAR VOLUME 90.3 fL (80.0-100.0); MEAN PLATELET VOLUME 7.6 fL (7.4-11.0); MONOCYTES # (AUTO) 0.9 x10^3/uL (0.3-0.8); MONOCYTES % (AUTO) 11.4 % (0.0-13.0); NEUTROPHILS # (AUTO) 4.8 x10^3/uL (2.2-4.8); NEUTROPHILS % (AUTO) 63.4 % (42.0-75.0); PLATELET COUNT 270 X10^3/uL (150.0-450.0); RED BLOOD COUNT 3.01 X10^6/uL (3.5-5.4); RED CELL DISTRIBUTION WIDTH 14.2 % (11.6-16.5); WHITE BLOOD COUNT 7.6 X10^3/uL (3.6-10.0)
[2016-11-01 05:32] LABS: ALANINE AMINOTRANSFERASE 15 Units/L (12-78); ALBUMIN 2.7 g/dL (3.4-5.0); ALKALINE PHOSPHATASE 80 Units/L (46-116); ASPARTATE AMINO TRANSFERASE 12 Units/L (15-37); BLOOD UREA NITROGEN 13 mg/dL (7-18); CALCIUM 8.5 mg/dL (8.5-10.1); CARBON DIOXIDE 33.2 mmol/L (21-32); CHLORIDE 100 mmol/L (98-107); COR CA(FOR HYPOALB) 9.5 mg/dL (8.5-10.1); CREATININE 0.88 mg/dL (0.55-1.02); GLUCOSE 99 mg/dL (65-99); SODIUM 140 mmol/L (136-145); TOTAL PROTEIN 6.3 g/dL (6.4-8.2); eGFR BLACK RACES > 60 (>60); eGFR NON BLACK RACES > 60 (>60)
--- NOTE | 2016-11-01 06:35 | RAD ---
HISTORY: Congestive heart failure Study: Chest two-view Comparison: October 31, 2016 Findings: The patient is rotated to the left. The heart is enlarged. No congestive heart failure is noted. The lungs are mildly hyperinflated but free of acute alveolar infiltrates. No pleural effusions are brian ntified. The bony thorax is unremarkable with the exception of a right shoulder hemiarthroplasty. IMPRESSION: Cardiomegaly without congestive heart failure Lungs hyperinflated but clear Reported By:
[2016-11-01 07:14] LABS: ERYTHROCYTE SEDIMENTATION RATE 47 MM/HOUR (0-20)
[2016-11-01] MEDS ORDERED: NORCO 5/325 MG TAB PO PRN (09:09)
[2016-11-01] MEDS: NexIUM PO SCH (11:48)
[2016-11-01] MEDS: LASIX PO SCH ×2 (11:49→20:39)
[2016-11-01] MEDS: ZESTRIL TAB 10 MG PO SCH ×2 (11:49→20:39)
[2016-11-01] MEDS: SINGULAIR TAB 10 MG PO SCH (11:49)
[2016-11-01] MEDS: PEPCID TAB 20 MG PO SCH ×2 (11:49→20:40)
[2016-11-01] MEDS: COLACE CAP 100 MG PO SCH ×3 (11:50→21:00)
[2016-11-01] MEDS: PLAVIX PO SCH (11:54)
--- NOTE | 2016-11-01 13:59 | PCM.PROG ---
Progress Note - Progress Note for Day of Date: 11/01/16 - Subjective Subjective: Patient is a 76 yo female who was admitted with CHF. Her lower extremity edema has improved however, she his having difficulty getting up and down she has been seen by Dr. Chang and was awaiting cardiac clearance to under go vetebroplasty. We are going to consult Chang to see if he do can do the surgery while she is in the hospital due to her inability to move without severe pain. Physical therapy tried to work with her today and they were not able to perform in mobility related to the pain. The patient has had an ECHO performed which shows 66% EF, Chest xray shows cardiomegaly without definite congestive heart failure and COPD. EKG is Normal, patient is medically and cardiac cleared for surgery. We are going to continue her on her home medications and follow up in the am with repeat labs and wait for Dr. Chang to see her. Vital signs this am 98.4, 80, 20, 91% on RA, 133/61. Labs are within normal limits with the exception of RBC 3.01m Hgb 9.3, hct 27.2, mono# 0.9, ESR 47, Potassium 3.4, Carbon Dioxide 33.2, AST 12, CRP 26.40, Total Protein 6.3, Albumin 2.7, Albumin/Globulin Ratio 0.8. - Past Medical Family Social History Allergies: Allergies MS Hydromorphone [From Dilaudid] Allergy (Intermediate, Verified 08/16/16 17:26) breathing problems MS Meperidine [From Demerol HCl] Allergy (Intermediate, Verified 08/16/16 17:26) RASH MS Codeine [Codeine] Allergy (Verified 08/16/16 17:26) MS Prednisone [Prednisone] Allergy (Verified 08/16/16 17:26) - Vital Signs and I&O's Vital Signs: 98.4, 80, 20, 91% on RA, 133/61 Intake and Output: Intake & Output 10/30/16 10/31/16 11/01/16 11/02/16 11:59 11:59 11:59 11:59 Intake Total 1100 Output Total 950 Balance 150 - Physical Exam Oriented: Normal Eyes: Normal Ear: Normal Nose: Normal Throat: Normal Respiratory: Normal Cardiovascular: Normal : Normal Auscultation: Bowel Sounds: Normal Palpation: Normal Tenderness: Normal Skin: Bruising (scattered) Musculoskeletal: Instability (pain, patient unable to move without severe pain to back) Psychiatric: Normal Mood Description: Calm Affect: Normal Speech Pattern: Clear, Appropriate - Laboratory and Diagnostics Result Diagrams: 11/01/16 03:15 11/01/16 03:15 Labs: Laboratory WBC 7.6 X10^3/uL (3.6-10.0) 11/01/16 03:15 RBC 3.01 X10^6/uL (3.5-5.4) L 11/01/16 03:15 Hgb 9.3 g/dL (12.0-16.0) L 11/01/16 03:15 Hct 27.2 % (36.0-47.0) L 11/01/16 03:15 MCV 90.3 fL (80.0-100.0) 11/01/16 03:15 MCH 30.9 pg (27.0-34.0) 11/01/16 03:15 MCHC 34.2 g/dL (33.0-35.0) 11/01/16 03:15 RDW 14.2 % (11.6-16.5) 11/01/16 03:15 Plt Count 270 X10^3/uL (150.0-450.0) 11/01/16 03:15 MPV 7.6 fL (7.4-11.0) 11/01/16 03:15 Neut % 63.4 % (42.0-75.0) 11/01/16 03:15 Lymph % 22.0 % (21.0-51.0) 11/01/16 03:15 [place] % 11.4 % (0.0-13.0) 11/01/16 03:15 Eos % 2.4 % (0.9-2.9) 11/01/16 03:15 Baso % 0.8 % (0.2-1.0) 11/01/16 03:15 Neut # 4.8 x10^3/uL (2.2-4.8) 11/01/16 03:15 Lymph # 1.7 X10^3/uL (1.3-2.9) 11/01/16 03:15 [place] # 0.9 x10^3/uL (0.3-0.8) H 11/01/16 03:15 Eos # 0.2 x10^3/uL (0.0-0.2) 11/01/16 03:15 Baso # 0.1 X10^3/uL (0.0-0.1) 11/01/16 03:15 Absolute Nucleated RBC 0.0 /100WBC 11/01/16 03:15 ESR 47 MM/HOUR (0-20) H 11/01/16 03:15 Sodium 140 mmol/L (136-145) 11/01/16 03:15 Corrected Sodium TNP 11/01/16 03:15 Potassium 3.4 mmol/L (3.5-5.1) L 11/01/16 03:15 Chloride 100 mmol/L (98-107) 11/01/16 03:15 Carbon Dioxide 33.2 mmol/L (21-32) H 11/01/16 03:15 BUN 13 mg/dL (7-18) 11/01/16 03:15 Creatinine 0.88 mg/dL (0.55-1.02) 11/01/16 03:15 Est GFR (MDRD) Af Amer > 60 (>60) 11/01/16 03:15 Est GFR (MDRD) Non-Af > 60 (>60) 11/01/16 03:15 Glucose 99 mg/dL (65-99) 11/01/16 03:15 Calcium 8.5 mg/dL (8.5-10.1) 11/01/16 03:15 Corrected Calcium 9.5 mg/dL (8.5-10.1) 11/01/16 03:15 Total Bilirubin 0.30 mg/dL (0.2-1.0) 11/01/16 03:15 AST 12 Units/L (15-37) L 11/01/16 03:15 ALT 15 Units/L (12-78) 11/01/16 03:15 Alkaline Phosphatase 80 Units/L (46-116) 11/01/16 03:15 C-Reactive Protein 56.40 mg/L (0-3.0) H 11/01/16 03:15 B-Natriuretic Peptide 240 pg/mL (0-79) H 10/31/16 13:32 Total Protein 6.3 g/dL (6.4-8.2) L 11/01/16 03:15 Albumin 2.7 g/dL (3.4-5.0) L 11/01/16 03:15 Globulin 3.6 g/dL (2.5-4.5) 11/01/16 03:15 Albumin/Globulin Ratio 0.8 Ratio (1.1-2.1) L 11/01/16 03:15 Specimen Type Clean catch urine 10/31/16 15:05 Urine Color Pale yellow (YELLOW) 10/31/16 15:05 Urine Appearance Clear (CLEAR) 10/31/16 15:05 Urine pH 6.0 (5.0 - 8.0) 10/31/16 15:05 Ur Specific [place] 1.010 (1.000-1.030) 10/31/16 15:05 Urine Protein Negative (NEGATIVE) 10/31/16 15:05 Urine Glucose (UA) Negative (NEGATIVE) 10/31/16 15:05 Urine Ketones Negative (NEGATIVE) 10/31/16 15:05 Urine Occult Blood Negative (NEGATIVE) 10/31/16 15:05 Urine Nitrite Negative (NEGATIVE) 10/31/16 15:05 Urine Bilirubin Negative (NEGATIVE) 10/31/16 15:05 Urine Urobilinogen Normal (NORMAL) 10/31/16 15:05 Ur Leukocyte Esterase Negative (NEGATIVE) 10/31/16 15:05 Urine RBC 0-2 /HPF (NEGATIVE) 10/31/16 15:05 Urine WBC None seen /HPF (NEGATIVE) 10/31/16 15:05 Ur Squamous Epith Cells Negative /HPF (NEGATIVE) 10/31/16 15:05 Amorphous Sediment Trace /HPF (NEGATIVE) 10/31/16 15:05 Urine Bacteria Negative /HPF (NEGATIVE) 10/31/16 15:05 Ur Culture Indicated? No/not indicated 10/31/16 15:05 Radiology Reviewed: Yes EKG Reviewed: Yes - Plan (1) CHF (congestive heart failure) Status: Acute Qualifiers: Congestive heart failure type: C Congestive heart failure chronicity: C Plan: continue lasix (2) Back pain Status: Acute Qualifiers: Back pain location: B Chronicity: C Back pain laterality: B Sciatica presence: S Sciatica laterality: S Plan: norco and ultram PRN and Fentanyl patch, consult chang (3) Dyslipidemia Status: Chronic (4) GERD (gastroesophageal reflux disease) Status: Chronic Qualifiers: Esophagitis presence: E Plan: continue crestor, monitor (5) HTN (hypertension) Status: Chronic Qualifiers: Hypertension type: H Plan: continue lisinopril (6) Coronary artery disease Status: Chronic Qualifiers: Coronary Disease-Associated Artery/Lesion type: [place] artery [place] vs. transplanted heart: [place] heart Associated angina: with stable angina Qualified Code(s): I25.118 - Atherosclerotic heart disease of [place] coronary artery with other forms of angina pectoris Plan: continue coreg
[2016-11-01] MEDS: MILK OF MAGNESIA PO SCH (20:39)
[2016-11-01] MEDS: COREG TAB 12.5 MG PO SCH (20:39)
[2016-11-01] MEDS: CRESTOR TAB 10 MG PO SCH (20:39)
[2016-11-01] MEDS: ULTRAM PO PRN (20:40)
[2016-11-02] MEDS: ULTRAM PO PRN ×2 (05:25→13:28)
[2016-11-02 05:48] LABS: BASOPHILS # (AUTO) 0.1 X10^3/uL (0.0-0.1); BASOPHILS % (AUTO) 0.9 % (0.2-1.0); EOSINOPHILS # (AUTO) 0.2 x10^3/uL (0.0-0.2); EOSINOPHILS % (AUTO) 2.3 % (0.9-2.9); HEMATOCRIT 27.2 % (36.0-47.0); HEMOGLOBIN 9.4 g/dL (12.0-16.0); LYMPHOCYTES # (AUTO) 1.6 X10^3/uL (1.3-2.9); LYMPHOCYTES % (AUTO) 21.8 % (21.0-51.0); MEAN CORPUSCULAR HEMOGLOBIN 30.6 pg (27.0-34.0); MEAN CORPUSCULAR HGB CONC 34.6 g/dL (33.0-35.0); MEAN CORPUSCULAR VOLUME 88.5 fL (80.0-100.0); MEAN PLATELET VOLUME 7.2 fL (7.4-11.0); MONOCYTES # (AUTO) 0.8 x10^3/uL (0.3-0.8); MONOCYTES % (AUTO) 11.3 % (0.0-13.0); NEUTROPHILS # (AUTO) 4.7 x10^3/uL (2.2-4.8); NEUTROPHILS % (AUTO) 63.7 % (42.0-75.0); PLATELET COUNT 294 X10^3/uL (150.0-450.0); RED BLOOD COUNT 3.08 X10^6/uL (3.5-5.4); RED CELL DISTRIBUTION WIDTH 14.2 % (11.6-16.5); WHITE BLOOD COUNT 7.4 X10^3/uL (3.6-10.0)
[2016-11-02 06:01] LABS: ALANINE AMINOTRANSFERASE 15 Units/L (12-78); ALBUMIN 2.6 g/dL (3.4-5.0); ALKALINE PHOSPHATASE 82 Units/L (46-116); ASPARTATE AMINO TRANSFERASE 11 Units/L (15-37); BLOOD UREA NITROGEN 18 mg/dL (7-18); CALCIUM 8.7 mg/dL (8.5-10.1); CARBON DIOXIDE 35.5 mmol/L (21-32); CHLORIDE 102 mmol/L (98-107); COR CA(FOR HYPOALB) 9.8 mg/dL (8.5-10.1); COR NA(FOR HYPERGLY) 143 mmol/L (136-145); CREATININE 0.85 mg/dL (0.55-1.02); GLUCOSE 127 mg/dL (65-99); SODIUM 142 mmol/L (136-145); TOTAL PROTEIN 6.1 g/dL (6.4-8.2); eGFR BLACK RACES > 60 (>60); eGFR NON BLACK RACES > 60 (>60)
--- NOTE | 2016-11-02 07:40 | RAD ---
History: CHF, comparison 11/01/2016 Study: AP chest Findings: The cardiac silhouette is enlarged. The pulmonary vasculature appears at upper limits norm al. There are what appear to be chronic interstitial changes seen. 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 Impression: 1. Cardiomegaly without CHF or pneumonia. 2. Chronic interstitial lung changes. Reported By:
[2016-11-02] MEDS: PEPCID TAB 20 MG PO SCH ×2 (09:09→21:42)
[2016-11-02] MEDS: PLAVIX PO SCH (09:09)
[2016-11-02] MEDS: COREG TAB 12.5 MG PO SCH ×2 (09:10→21:42)
[2016-11-02] MEDS: NexIUM PO SCH (09:10)
[2016-11-02] MEDS: LASIX PO SCH ×2 (09:10→21:42)
[2016-11-02] MEDS: COLACE CAP 100 MG PO SCH ×3 (09:10→21:45)
[2016-11-02] MEDS: SINGULAIR TAB 10 MG PO SCH (09:10)
[2016-11-02] MEDS: ZESTRIL TAB 10 MG PO SCH ×2 (09:10→21:42)
[2016-11-02] MEDS ORDERED: CHRONULAC ONE (18:11)
[2016-11-02] MEDS: CHRONULAC PO SCH ×2 (18:16→23:25)
[2016-11-02] MEDS: MILK OF MAGNESIA PO SCH (21:42)
[2016-11-02] MEDS: NORCO 5/325 MG TAB PO PRN (21:42)
[2016-11-02] MEDS: CRESTOR TAB 10 MG PO SCH (21:42)
[2016-11-03] MEDS: NORCO 5/325 MG TAB PO PRN ×3 (05:41→20:36)
[2016-11-03] MEDS: CHRONULAC PO SCH ×4 (05:42→23:26)
[2016-11-03 06:00] LABS: BASOPHILS # (AUTO) 0.1 X10^3/uL (0.0-0.1); BASOPHILS % (AUTO) 0.7 % (0.2-1.0); EOSINOPHILS # (AUTO) 0.2 x10^3/uL (0.0-0.2); EOSINOPHILS % (AUTO) 2.9 % (0.9-2.9); HEMATOCRIT 27.8 % (36.0-47.0); HEMOGLOBIN 9.6 g/dL (12.0-16.0); LYMPHOCYTES # (AUTO) 1.7 X10^3/uL (1.3-2.9); LYMPHOCYTES % (AUTO) 23.3 % (21.0-51.0); MEAN CORPUSCULAR HEMOGLOBIN 30.9 pg (27.0-34.0); MEAN CORPUSCULAR HGB CONC 34.5 g/dL (33.0-35.0); MEAN CORPUSCULAR VOLUME 89.6 fL (80.0-100.0); MEAN PLATELET VOLUME 7.1 fL (7.4-11.0); MONOCYTES # (AUTO) 0.9 x10^3/uL (0.3-0.8); MONOCYTES % (AUTO) 12.1 % (0.0-13.0); NEUTROPHILS # (AUTO) 4.5 x10^3/uL (2.2-4.8); PLATELET COUNT 307 X10^3/uL (150.0-450.0); RED CELL DISTRIBUTION WIDTH 14.6 % (11.6-16.5); WHITE BLOOD COUNT 7.4 X10^3/uL (3.6-10.0)
[2016-11-03 06:27] LABS: ALANINE AMINOTRANSFERASE 14 Units/L (12-78); ALBUMIN 2.5 g/dL (3.4-5.0); ALKALINE PHOSPHATASE 86 Units/L (46-116); ASPARTATE AMINO TRANSFERASE 10 Units/L (15-37); BLOOD UREA NITROGEN 17 mg/dL (7-18); CALCIUM 8.7 mg/dL (8.5-10.1); CARBON DIOXIDE 34.6 mmol/L (21-32); CHLORIDE 101 mmol/L (98-107); COR CA(FOR HYPOALB) 9.9 mg/dL (8.5-10.1); COR NA(FOR HYPERGLY) 140 mmol/L (136-145); CREATININE 0.85 mg/dL (0.55-1.02); GLUCOSE 117 mg/dL (65-99); SODIUM 140 mmol/L (136-145); TOTAL PROTEIN 6.1 g/dL (6.4-8.2); eGFR BLACK RACES > 60 (>60); eGFR NON BLACK RACES > 60 (>60)
[2016-11-03] MEDS: LASIX PO SCH ×2 (09:00→20:36)
[2016-11-03] MEDS: COREG TAB 12.5 MG PO SCH ×2 (09:00→20:36)
[2016-11-03] MEDS: SINGULAIR TAB 10 MG PO SCH (09:00)
[2016-11-03] MEDS: ZESTRIL TAB 10 MG PO SCH ×2 (09:00→20:36)
[2016-11-03] MEDS: NexIUM PO SCH (09:00)
[2016-11-03] MEDS: PEPCID TAB 20 MG PO SCH ×2 (09:00→20:36)
[2016-11-03] MEDS: COLACE CAP 100 MG PO SCH ×3 (09:00→20:37)
[2016-11-03] MEDS: PLAVIX PO SCH (09:00)
[2016-11-03] MEDS: CRESTOR TAB 10 MG PO SCH (20:37)
[2016-11-03] MEDS: MILK OF MAGNESIA PO SCH (20:37)
[2016-11-04 05:10] LABS: BASOPHILS # (AUTO) 0.1 X10^3/uL (0.0-0.1); BASOPHILS % (AUTO) 0.9 % (0.2-1.0); EOSINOPHILS # (AUTO) 0.3 x10^3/uL (0.0-0.2); EOSINOPHILS % (AUTO) 3.7 % (0.9-2.9); HEMATOCRIT 29.3 % (36.0-47.0); HEMOGLOBIN 9.9 g/dL (12.0-16.0); LYMPHOCYTES # (AUTO) 1.9 X10^3/uL (1.3-2.9); LYMPHOCYTES % (AUTO) 25.5 % (21.0-51.0); MEAN CORPUSCULAR HEMOGLOBIN 30.8 pg (27.0-34.0); MEAN CORPUSCULAR HGB CONC 33.8 g/dL (33.0-35.0); MEAN CORPUSCULAR VOLUME 91.1 fL (80.0-100.0); MEAN PLATELET VOLUME 7.4 fL (7.4-11.0); MONOCYTES # (AUTO) 0.8 x10^3/uL (0.3-0.8); MONOCYTES % (AUTO) 11.1 % (0.0-13.0); NEUTROPHILS # (AUTO) 4.4 x10^3/uL (2.2-4.8); NEUTROPHILS % (AUTO) 58.8 % (42.0-75.0); PLATELET COUNT 334 X10^3/uL (150.0-450.0); RED BLOOD COUNT 3.21 X10^6/uL (3.5-5.4); RED CELL DISTRIBUTION WIDTH 14.3 % (11.6-16.5); WHITE BLOOD COUNT 7.4 X10^3/uL (3.6-10.0)
[2016-11-04 05:31] LABS: ALANINE AMINOTRANSFERASE 15 Units/L (12-78); ALBUMIN 2.6 g/dL (3.4-5.0); ALKALINE PHOSPHATASE 95 Units/L (46-116); ASPARTATE AMINO TRANSFERASE 13 Units/L (15-37); BLOOD UREA NITROGEN 17 mg/dL (7-18); CALCIUM 9.1 mg/dL (8.5-10.1); CARBON DIOXIDE 30.8 mmol/L (21-32); CHLORIDE 100 mmol/L (98-107); COR CA(FOR HYPOALB) 10.2 mg/dL (8.5-10.1); CREATININE 0.93 mg/dL (0.55-1.02); GLUCOSE 108 mg/dL (65-99); SODIUM 138 mmol/L (136-145); TOTAL PROTEIN 6.4 g/dL (6.4-8.2); eGFR BLACK RACES > 60 (>60); eGFR NON BLACK RACES > 60 (>60)
[2016-11-04] MEDS: ULTRAM PO PRN ×2 (06:18→15:32)
[2016-11-04] MEDS: CHRONULAC PO SCH ×3 (06:19→17:48)
[2016-11-04] MEDS: LASIX PO SCH ×2 (09:22→21:20)
[2016-11-04] MEDS: NexIUM PO SCH (09:22)
[2016-11-04] MEDS: PLAVIX PO SCH (09:23)
[2016-11-04] MEDS: SINGULAIR TAB 10 MG PO SCH (09:23)
[2016-11-04] MEDS: PEPCID TAB 20 MG PO SCH ×2 (09:23→21:19)
[2016-11-04] MEDS: ZESTRIL TAB 10 MG PO SCH ×2 (09:23→21:19)
[2016-11-04] MEDS: NORCO 5/325 MG TAB PO PRN ×2 (09:24→21:20)
[2016-11-04] MEDS: COLACE CAP 100 MG PO SCH ×3 (09:24→21:19)
[2016-11-04] MEDS: COREG TAB 12.5 MG PO SCH ×2 (10:00→21:19)
--- NOTE | 2016-11-04 11:30 | PCM.PROG ---
Progress Note - Progress Note for Day of Date: 11/04/16 - Subjective Subjective: Patient is a 76 yo female who was admitted with CHF. Her lower extremity edema has improved however, she his having difficulty getting up and down she has been seen by Dr. Heredia and was awaiting cardiac clearance to under go vetebroplasty. We are going to consult Charlene to see if he do can do the surgery while she is in the hospital due to her inability to move without severe pain. Physical therapy tried to work with her and they were not able to perform in mobility related to the pain. We are still awaiting Dr. Heredia to see her. Patient is still unable to ambulate and has very limited mobility. Vital signs are 98.6, 72, 18, 98, 127/59. Labs within normal limits with the exception of RBC 3.21, Hgb 9.9, Hct 29.3, Eos% 3.7, Eos# 0.3, Glucose 108, AST 13, Albumin 2.6, Albumin/Globulin Ratio 0.7. We will follow up with patient in the am with repeat labs and await Dr. Wiley consult - Past Medical Family Social History Past Med/Fam/Surg Hx: No changes since H&P Allergies: Allergies MS Hydromorphone [From Dilaudid] Allergy (Intermediate, Verified 08/16/16 17:26) breathing problems MS Meperidine [From Demerol HCl] Allergy (Intermediate, Verified 08/16/16 17:26) RASH MS Codeine [Codeine] Allergy (Verified 08/16/16 17:26) MS Prednisone [Prednisone] Allergy (Verified 08/16/16 17:26) - Review of Systems ROS: No change since H&P - Vital Signs and I&O's Vital Signs: Temperature 98.6 F Pulse Rate [Left Brachial] 72 Respiratory Rate 18 Blood Pressure [Left Arm] 122/56 Blood Pressure [Right Arm] 127/59 Blood Pressure 170/74 O2 Sat by Pulse Oximetry 98 Intake and Output: Intake & Output 11/01/16 11/02/16 11/03/16 11/04/16 11:59 11:59 11:59 11:59 Intake Total 1100 1495 912 880 Output Total 950 600 Balance 150 1495 312 880 - Physical Exam Oriented: Normal Eyes: Normal Ear: Normal Nose: Normal Throat: Normal Respiratory: Normal Cardiovascular: Normal : Normal Auscultation: Bowel Sounds: Normal Tenderness: Normal Skin: Bruising (scattered) Musculoskeletal: Instability (pain, patient unable to move without severe pain to back) Psychiatric: Normal Mood Description: Calm Affect: Normal Speech Pattern: Clear, Appropriate - Laboratory and Diagnostics Result Diagrams: 11/04/16 03:00 11/04/16 03:00 Labs: Laboratory WBC 7.4 X10^3/uL (3.6-10.0) 11/04/16 03:00 RBC 3.21 X10^6/uL (3.5-5.4) L 11/04/16 03:00 Hgb 9.9 g/dL (12.0-16.0) L 11/04/16 03:00 Hct 29.3 % (36.0-47.0) L 11/04/16 03:00 MCV 91.1 fL (80.0-100.0) 11/04/16 03:00 MCH 30.8 pg (27.0-34.0) 11/04/16 03:00 MCHC 33.8 g/dL (33.0-35.0) 11/04/16 03:00 RDW 14.3 % (11.6-16.5) 11/04/16 03:00 Plt Count 334 X10^3/uL (150.0-450.0) 11/04/16 03:00 MPV 7.4 fL (7.4-11.0) 11/04/16 03:00 Neut % 58.8 % (42.0-75.0) 11/04/16 03:00 Lymph % 25.5 % (21.0-51.0) 11/04/16 03:00 [place] % 11.1 % (0.0-13.0) 11/04/16 03:00 Eos % 3.7 % (0.9-2.9) H 11/04/16 03:00 Baso % 0.9 % (0.2-1.0) 11/04/16 03:00 Neut # 4.4 x10^3/uL (2.2-4.8) 11/04/16 03:00 Lymph # 1.9 X10^3/uL (1.3-2.9) 11/04/16 03:00 [place] # 0.8 x10^3/uL (0.3-0.8) 11/04/16 03:00 Eos # 0.3 x10^3/uL (0.0-0.2) H 11/04/16 03:00 Baso # 0.1 X10^3/uL (0.0-0.1) 11/04/16 03:00 Absolute Nucleated RBC 0.0 /100WBC 11/04/16 03:00 ESR 47 MM/HOUR (0-20) H 11/01/16 03:15 Sodium 138 mmol/L (136-145) 11/04/16 03:00 Corrected Sodium TNP 11/04/16 03:00 Potassium 4.4 mmol/L (3.5-5.1) 11/04/16 03:00 Chloride 100 mmol/L (98-107) 11/04/16 03:00 Carbon Dioxide 30.8 mmol/L (21-32) 11/04/16 03:00 BUN 17 mg/dL (7-18) 11/04/16 03:00 Creatinine 0.93 mg/dL (0.55-1.02) 11/04/16 03:00 Est GFR (MDRD) Af Amer > 60 (>60) 11/04/16 03:00 Est GFR (MDRD) Non-Af > 60 (>60) 11/04/16 03:00 Glucose 108 mg/dL (65-99) H 11/04/16 03:00 Calcium 9.1 mg/dL (8.5-10.1) 11/04/16 03:00 Corrected Calcium 10.2 mg/dL (8.5-10.1) H 11/04/16 03:00 Total Bilirubin 0.20 mg/dL (0.2-1.0) 11/04/16 03:00 AST 13 Units/L (15-37) L 11/04/16 03:00 ALT 15 Units/L (12-78) 11/04/16 03:00 Alkaline Phosphatase 95 Units/L (46-116) 11/04/16 03:00 C-Reactive Protein 56.40 mg/L (0-3.0) H 11/01/16 03:15 B-Natriuretic Peptide 240 pg/mL (0-79) H 10/31/16 13:32 Total Protein 6.4 g/dL (6.4-8.2) 11/04/16 03:00 Albumin 2.6 g/dL (3.4-5.0) L 11/04/16 03:00 Globulin 3.8 g/dL (2.5-4.5) 11/04/16 03:00 Albumin/Globulin Ratio 0.7 Ratio (1.1-2.1) L 11/04/16 03:00 Specimen Type Clean catch urine 10/31/16 15:05 Urine Color Pale yellow (YELLOW) 10/31/16 15:05 Urine Appearance Clear (CLEAR) 10/31/16 15:05 Urine pH 6.0 (5.0 - 8.0) 10/31/16 15:05 Ur Specific [place] 1.010 (1.000-1.030) 10/31/16 15:05 Urine Protein Negative (NEGATIVE) 10/31/16 15:05 Urine Glucose (UA) Negative (NEGATIVE) 10/31/16 15:05 Urine Ketones Negative (NEGATIVE) 10/31/16 15:05 Urine Occult Blood Negative (NEGATIVE) 10/31/16 15:05 Urine Nitrite Negative (NEGATIVE) 10/31/16 15:05 Urine Bilirubin Negative (NEGATIVE) 10/31/16 15:05 Urine Urobilinogen Normal (NORMAL) 10/31/16 15:05 Ur Leukocyte Esterase Negative (NEGATIVE) 10/31/16 15:05 Urine RBC 0-2 /HPF (NEGATIVE) 10/31/16 15:05 Urine WBC None seen /HPF (NEGATIVE) 10/31/16 15:05 Ur Squamous Epith Cells Negative /HPF (NEGATIVE) 10/31/16 15:05 Amorphous Sediment Trace /HPF (NEGATIVE) 10/31/16 15:05 Urine Bacteria Negative /HPF (NEGATIVE) 10/31/16 15:05 Ur Culture Indicated? No/not indicated 10/31/16 15:05 - Plan (1) CHF (congestive heart failure) Status: Acute Qualifiers: Congestive heart failure type: C Congestive heart failure chronicity: C Plan: continue lasix (2) Back pain Status: Acute Qualifiers: Back pain location: B Chronicity: C Back pain laterality: B Sciatica presence: S Sciatica laterality: S Plan: norco and ultram PRN and Fentanyl patch, consult heredia (3) Dyslipidemia Status: Chronic (4) GERD (gastroesophageal reflux disease) Status: Chronic Qualifiers: Esophagitis presence: E Plan: continue crestor, monitor (5) HTN (hypertension) Status: Chronic Qualifiers: Hypertension type: H Plan: continue lisinopril (6) Coronary artery disease Status: Chronic Qualifiers: Coronary Disease-Associated Artery/Lesion type: [place] artery [place] vs. transplanted heart: [place] heart Associated angina: with stable angina Qualified Code(s): I25.118 - Atherosclerotic heart disease of [place] coronary artery with other forms of angina pectoris Plan: continue coreg
--- NOTE | 2016-11-04 12:07 | RAD ---
HISTORY: Low back pain Study: AP and lateral lumbar spine Comparison: MRI lumbar spine September 17, 2016 Findings: The bones are osteopenic. Lumbar levo rotoscoliosis is present. There are compression fractures of L 2 and L3 which are old. There is mild compression of the superior endplate of L4 which was noted to be recent on the MRI lumbar spine September 17, 2016. Degenerative disk disease appears to be present at al l levels most prominently at L3-4, L4-5, and L5-S1. The pedicles are intact. The SI joints are daniela l. Facet degenerative joint disease is present in the lower lumbar spine. IMPRESSION: Osteopenia Levo rotoscoliosis Multiple compression fractures as described above. Multilevel degenerative disc disease as described above Facet degenerative joint disease Reported By:
[2016-11-04] MEDS: MILK OF MAGNESIA PO SCH (21:19)
[2016-11-04] MEDS: CRESTOR TAB 10 MG PO SCH (21:20)
[2016-11-05] MEDS: CHRONULAC PO SCH ×5 (00:46→22:02)
[2016-11-05] MEDS: ULTRAM PO PRN ×3 (02:57→16:55)
[2016-11-05 05:13] LABS: BASOPHILS # (AUTO) 0.1 X10^3/uL (0.0-0.1); BASOPHILS % (AUTO) 0.9 % (0.2-1.0); EOSINOPHILS # (AUTO) 0.3 x10^3/uL (0.0-0.2); EOSINOPHILS % (AUTO) 3.8 % (0.9-2.9); HEMATOCRIT 26.9 % (36.0-47.0); HEMOGLOBIN 8.9 g/dL (12.0-16.0); LYMPHOCYTES # (AUTO) 1.7 X10^3/uL (1.3-2.9); LYMPHOCYTES % (AUTO) 24.8 % (21.0-51.0); MEAN CORPUSCULAR HEMOGLOBIN 30.3 pg (27.0-34.0); MEAN CORPUSCULAR HGB CONC 33.3 g/dL (33.0-35.0); MEAN CORPUSCULAR VOLUME 91.1 fL (80.0-100.0); MEAN PLATELET VOLUME 6.8 fL (7.4-11.0); MONOCYTES # (AUTO) 0.8 x10^3/uL (0.3-0.8); MONOCYTES % (AUTO) 11.9 % (0.0-13.0); NEUTROPHILS % (AUTO) 58.6 % (42.0-75.0); RED BLOOD COUNT 2.95 X10^6/uL (3.5-5.4); RED CELL DISTRIBUTION WIDTH 14.1 % (11.6-16.5); WHITE BLOOD COUNT 6.9 X10^3/uL (3.6-10.0)
[2016-11-05 05:15] LABS: PLATELET COUNT 264 X10^3/uL (150.0-450.0)
[2016-11-05 05:18] LABS: ALANINE AMINOTRANSFERASE 14 Units/L (12-78); ALBUMIN 2.7 g/dL (3.4-5.0); ALKALINE PHOSPHATASE 92 Units/L (46-116); ASPARTATE AMINO TRANSFERASE 13 Units/L (15-37); BLOOD UREA NITROGEN 19 mg/dL (7-18); CARBON DIOXIDE 31.6 mmol/L (21-32); CHLORIDE 100 mmol/L (98-107); CREATININE 0.97 mg/dL (0.55-1.02); GLUCOSE 109 mg/dL (65-99); SODIUM 140 mmol/L (136-145); TOTAL PROTEIN 6.5 g/dL (6.4-8.2); eGFR BLACK RACES > 60 (>60); eGFR NON BLACK RACES 59 (>60)
[2016-11-05] MEDS: NORCO 5/325 MG TAB PO PRN ×3 (05:48→20:42)
--- NOTE | 2016-11-05 06:45 | MRI ---
HISTORY: Severe back pain, bilateral radiculopathy Study: MRI lumbar spine without contrast Comparison: September 17, 2016 Technique: Multiplanar multi-sequence MRI of the lumbar spine was obtained. Sagittal T1, sagittal T 2, and stir weighted images, axial T1, and axial T2 images were obtained. Findings: Lumbar levo rotoscoliosis is present. The lumbar spine demonstrates otherwise normal alignment . The re are compression fractures of L1, 2, 3. Signal characteristics suggest that the L2 fracture is old . The L1 and L3 fracture are more recent by signal characteristics. There has been slight progressio n of the L1 fracture since the prior examination. There is mild compression of the superior endplate of L4 unchanged from the prior examination. The conus of the cord terminates normally. T12 -- L1: No evidence for compressive disc disease. The neural foramina are patent. The joints are normal. L1 -- L2: Circumferential disk bulging effaces the thecal sac and contributes to lateral recess narr owing bilaterally. Mild facet arthropathy is present bilaterally. L2 -- L3: Circumferential disk bulging effaces the thecal sac and contributes along with bilateral f acet arthropathy to lateral recess and foraminal narrowing bilaterally. L3 -- L4: Circumferential disk bulging effaces the thecal sac and contributes along with bilateral f acet arthropathy to lateral recess and foraminal narrowing bilaterally. L4 -- L5: Circumferential disk bulging effaces the thecal sac and contributes along with pedicular s hortening and facet arthropathy to a relative spinal stenosis with lateral recess and foraminal narr owing bilaterally. This is worse on the left than the right. L5 -- S1: Broad-based disk bulging effaces the thecal sac and contributes along with spondylitic will nge, pedicular shortening and facet arthropathy to lateral recess and foraminal narrowing on the lef t. The right neural foramen is patent. IMPRESSION: Compression fractures of L1, L2, L3, L4 with the L1 compression fracture recent and new when compare d with the prior examination. The characteristics of the L3 fracture suggest eased extension. The L4 fractures unchanged from the prior examination. Evaluation of each disc level detailed above Reported By:
[2016-11-05] MEDS: LASIX PO SCH ×2 (08:40→20:38)
[2016-11-05] MEDS: NexIUM PO SCH (08:40)
[2016-11-05] MEDS: SINGULAIR TAB 10 MG PO SCH (08:40)
[2016-11-05] MEDS: COREG TAB 12.5 MG PO SCH ×2 (08:40→20:38)
[2016-11-05] MEDS: PEPCID TAB 20 MG PO SCH ×2 (08:40→20:38)
[2016-11-05] MEDS: COLACE CAP 100 MG PO SCH ×3 (08:40→20:38)
[2016-11-05] MEDS: ZESTRIL TAB 10 MG PO SCH ×2 (08:40→20:38)
--- NOTE | 2016-11-05 12:43 | PCM.PROG ---
Progress Note - Progress Note for Day of Date: 11/05/16 - Subjective Subjective: Patient is a 76 yo female who was admitted with CHF. Her lower extremity edema has improved however, she his having difficulty getting up and down and has very limited mobility related to back pain. Dr. Heredia seen patient yesterday and ordered lumbar spine xray and MRI. He stated that after he get the MRI results he will probably perform surgery on Friday. Patient is sleeping this am and still having a good bit of pain. We have cleared her for surgery and awaiting Dr. Heredia to perform her vetebroplasty. Lumbar Xray showed Osetopenia, Levo rotoscoliosis, compression fractures of L2 and l3, Mild compression of the superior end plate of L$. Degenerative disc disease at all levels most prominent at L3-4, L4-5, L5-S1. Facet Degenerative Joint Disease. The Lumbar MRI shows compression fractures of the L1, L2, L3, L4 with the L1 compression fracture recent and new when compared with the prior examination. The characteristics of the L3 fracture suggest eased extension and the L4 fracture unchanged from the prior exam. Vtial signs this am 97.9, 59, 19, 96%, 105/53. Labs are within normal limits with the exception of RBC 2.95, Hgb 8.9, Hct 26.9, MPV 6.8, Eos% 3.8, Eos# 0.3, BUN 19, Glucose 109, AST 13, Albumin 2.7 , Albumin/Globulin Ratio 0.7. We will continue patient current treatment with pain management and will follow up in the am with repeat labs. - Past Medical Family Social History Past Med/Fam/Surg Hx: No changes since H&P Allergies: Allergies MS Hydromorphone [From Dilaudid] Allergy (Intermediate, Verified 08/16/16 17:26) breathing problems MS Meperidine [From Demerol HCl] Allergy (Intermediate, Verified 08/16/16 17:26) RASH MS Codeine [Codeine] Allergy (Verified 08/16/16 17:26) MS Prednisone [Prednisone] Allergy (Verified 08/16/16 17:26) - Review of Systems ROS: No change since H&P - Vital Signs and I&O's Vital Signs: 97.9, 59, 19, 96%, 105/53 Intake and Output: Intake & Output 11/03/16 11/04/16 11/05/16 11/06/16 11:59 11:59 11:59 11:59 Intake Total 397 331 0013 Output Total 600 300 Balance 312 880 760 - Physical Exam Oriented: Normal Eyes: Normal Ear: Normal Nose: Normal Throat: Normal Respiratory: Normal Cardiovascular: Normal : Normal Auscultation: Bowel Sounds: Normal Tenderness: Normal Skin: Bruising (scattered) Musculoskeletal: Back:Lumbar (tenderness), Instability (pain, patient unable to move without severe pain to back) Psychiatric: Normal Mood Description: Calm Affect: Normal Speech Pattern: Clear, Appropriate - Laboratory and Diagnostics Result Diagrams: 11/05/16 03:20 11/05/16 03:20 Labs: Laboratory WBC 6.9 X10^3/uL (3.6-10.0) 11/05/16 03:20 RBC 2.95 X10^6/uL (3.5-5.4) L 11/05/16 03:20 Hgb 8.9 g/dL (12.0-16.0) L 11/05/16 03:20 Hct 26.9 % (36.0-47.0) L 11/05/16 03:20 MCV 91.1 fL (80.0-100.0) 11/05/16 03:20 MCH 30.3 pg (27.0-34.0) 11/05/16 03:20 MCHC 33.3 g/dL (33.0-35.0) 11/05/16 03:20 RDW 14.1 % (11.6-16.5) 11/05/16 03:20 Plt Count 264 X10^3/uL (150.0-450.0) 11/05/16 03:20 MPV 6.8 fL (7.4-11.0) L 11/05/16 03:20 Neut % 58.6 % (42.0-75.0) 11/05/16 03:20 Lymph % 24.8 % (21.0-51.0) 11/05/16 03:20 [place] % 11.9 % (0.0-13.0) 11/05/16 03:20 Eos % 3.8 % (0.9-2.9) H 11/05/16 03:20 Baso % 0.9 % (0.2-1.0) 11/05/16 03:20 Neut # 4.0 x10^3/uL (2.2-4.8) 11/05/16 03:20 Lymph # 1.7 X10^3/uL (1.3-2.9) 11/05/16 03:20 [place] # 0.8 x10^3/uL (0.3-0.8) 11/05/16 03:20 Eos # 0.3 x10^3/uL (0.0-0.2) H 11/05/16 03:20 Baso # 0.1 X10^3/uL (0.0-0.1) 11/05/16 03:20 Absolute Nucleated RBC 0.1 /100WBC 11/05/16 03:20 ESR 47 MM/HOUR (0-20) H 11/01/16 03:15 Sodium 140 mmol/L (136-145) 11/05/16 03:20 Corrected Sodium TNP 11/05/16 03:20 Potassium 4.2 mmol/L (3.5-5.1) 11/05/16 03:20 Chloride 100 mmol/L (98-107) 11/05/16 03:20 Carbon Dioxide 31.6 mmol/L (21-32) 11/05/16 03:20 BUN 19 mg/dL (7-18) H 11/05/16 03:20 Creatinine 0.97 mg/dL (0.55-1.02) 11/05/16 03:20 Est GFR (MDRD) Af Amer > 60 (>60) 11/05/16 03:20 Est GFR (MDRD) Non-Af 59 (>60) 11/05/16 03:20 Glucose 109 mg/dL (65-99) H 11/05/16 03:20 Calcium 9.0 mg/dL (8.5-10.1) 11/05/16 03:20 Corrected Calcium 10.0 mg/dL (8.5-10.1) 11/05/16 03:20 Total Bilirubin 0.30 mg/dL (0.2-1.0) 11/05/16 03:20 AST 13 Units/L (15-37) L 11/05/16 03:20 ALT 14 Units/L (12-78) 11/05/16 03:20 Alkaline Phosphatase 92 Units/L (46-116) 11/05/16 03:20 C-Reactive Protein 56.40 mg/L (0-3.0) H 11/01/16 03:15 B-Natriuretic Peptide 240 pg/mL (0-79) H 10/31/16 13:32 Total Protein 6.5 g/dL (6.4-8.2) 11/05/16 03:20 Albumin 2.7 g/dL (3.4-5.0) L 11/05/16 03:20 Globulin 3.8 g/dL (2.5-4.5) 11/05/16 03:20 Albumin/Globulin Ratio 0.7 Ratio (1.1-2.1) L 11/05/16 03:20 Specimen Type Clean catch urine 10/31/16 15:05 Urine Color Pale yellow (YELLOW) 10/31/16 15:05 Urine Appearance Clear (CLEAR) 10/31/16 15:05 Urine pH 6.0 (5.0 - 8.0) 10/31/16 15:05 Ur Specific [place] 1.010 (1.000-1.030) 10/31/16 15:05 Urine Protein Negative (NEGATIVE) 10/31/16 15:05 Urine Glucose (UA) Negative (NEGATIVE) 10/31/16 15:05 Urine Ketones Negative (NEGATIVE) 10/31/16 15:05 Urine Occult Blood Negative (NEGATIVE) 10/31/16 15:05 Urine Nitrite Negative (NEGATIVE) 10/31/16 15:05 Urine Bilirubin Negative (NEGATIVE) 10/31/16 15:05 Urine Urobilinogen Normal (NORMAL) 10/31/16 15:05 Ur Leukocyte Esterase Negative (NEGATIVE) 10/31/16 15:05 Urine RBC 0-2 /HPF (NEGATIVE) 10/31/16 15:05 Urine WBC None seen /HPF (NEGATIVE) 10/31/16 15:05 Ur Squamous Epith Cells Negative /HPF (NEGATIVE) 10/31/16 15:05 Amorphous Sediment Trace /HPF (NEGATIVE) 10/31/16 15:05 Urine Bacteria Negative /HPF (NEGATIVE) 10/31/16 15:05 Ur Culture Indicated? No/not indicated 10/31/16 15:05 Radiology Reviewed: Yes - Plan (1) CHF (congestive heart failure) Status: Acute Qualifiers: Congestive heart failure type: C Congestive heart failure chronicity: C Plan: continue lasix (2) Back pain Status: Acute Qualifiers: Back pain location: B Chronicity: C Back pain laterality: B Sciatica presence: S Sciatica laterality: S Plan: norco and ultram PRN and Fentanyl patch, consult heredia (3) Dyslipidemia Status: Chronic (4) GERD (gastroesophageal reflux disease) Status: Chronic Qualifiers: Esophagitis presence: E Plan: continue crestor, monitor (5) HTN (hypertension) Status: Chronic Qualifiers: Hypertension type: H Plan: continue lisinopril (6) Coronary artery disease Status: Chronic Qualifiers: Coronary Disease-Associated Artery/Lesion type: [place] artery [place] vs. transplanted heart: [place] heart Associated angina: with stable angina Qualified Code(s): I25.118 - Atherosclerotic heart disease of [place] coronary artery with other forms of angina pectoris Plan: continue coreg
[2016-11-05] MEDS: CRESTOR TAB 10 MG PO SCH (20:37)
[2016-11-05] MEDS: MILK OF MAGNESIA PO SCH (20:48)
[2016-11-05] MEDS ORDERED: ZOFRAN TAB 4 MG SL PRN (23:33)
[2016-11-06 05:13] LABS: BASOPHILS # (AUTO) 0.1 X10^3/uL (0.0-0.1); BASOPHILS % (AUTO) 0.8 % (0.2-1.0); EOSINOPHILS # (AUTO) 0.2 x10^3/uL (0.0-0.2); EOSINOPHILS % (AUTO) 2.8 % (0.9-2.9); HEMATOCRIT 30.9 % (36.0-47.0); HEMOGLOBIN 10.6 g/dL (12.0-16.0); LYMPHOCYTES # (AUTO) 1.9 X10^3/uL (1.3-2.9); LYMPHOCYTES % (AUTO) 21.7 % (21.0-51.0); MEAN CORPUSCULAR HEMOGLOBIN 32.7 pg (27.0-34.0); MEAN CORPUSCULAR HGB CONC 34.4 g/dL (33.0-35.0); MEAN CORPUSCULAR VOLUME 95.1 fL (80.0-100.0); MEAN PLATELET VOLUME 7.3 fL (7.4-11.0); MONOCYTES # (AUTO) 0.8 x10^3/uL (0.3-0.8); MONOCYTES % (AUTO) 9.6 % (0.0-13.0); NEUTROPHILS # (AUTO) 5.7 x10^3/uL (2.2-4.8); NEUTROPHILS % (AUTO) 65.1 % (42.0-75.0); PLATELET COUNT 363 X10^3/uL (150.0-450.0); RED BLOOD COUNT 3.25 X10^6/uL (3.5-5.4); RED CELL DISTRIBUTION WIDTH 14.2 % (11.6-16.5); WHITE BLOOD COUNT 8.8 X10^3/uL (3.6-10.0)
[2016-11-06 05:19] LABS: ALANINE AMINOTRANSFERASE 13 Units/L (12-78); ALBUMIN 2.8 g/dL (3.4-5.0); ALKALINE PHOSPHATASE 98 Units/L (46-116); ASPARTATE AMINO TRANSFERASE 14 Units/L (15-37); BLOOD UREA NITROGEN 29 mg/dL (7-18); CALCIUM 8.9 mg/dL (8.5-10.1); CARBON DIOXIDE 30.5 mmol/L (21-32); CHLORIDE 101 mmol/L (98-107); COR CA(FOR HYPOALB) 9.9 mg/dL (8.5-10.1); CREATININE 1.37 mg/dL (0.55-1.02); GLUCOSE 108 mg/dL (65-99); SODIUM 139 mmol/L (136-145); TOTAL PROTEIN 6.7 g/dL (6.4-8.2); eGFR BLACK RACES 48 (>60); eGFR NON BLACK RACES 40 (>60)
[2016-11-06] MEDS: CHRONULAC PO SCH ×4 (05:34→23:46)
[2016-11-06] MEDS ORDERED: XYLOCAINE 1% and EPINEPHRINE 1:100,000 ONE (08:34)
[2016-11-06] MEDS ORDERED: MARCAINE 0.25% WITH EPI IJ ONE (08:35)
[2016-11-06] MEDS: COREG TAB 12.5 MG PO SCH ×2 (08:41→22:02)
[2016-11-06] MEDS ORDERED: D5 LR 1000 ML 1,000 ML IV ONE (08:47)
[2016-11-06] MEDS ORDERED: ANCEF VIAL 1 GM ONE (08:48)
[2016-11-06] MEDS: NS 50 ML IV + SPIKE MINIBAG* 50 ML IV ONE ×2 (08:57→09:19)
[2016-11-06] MEDS ORDERED: FENTANYL INJ 100 mcg ONE (09:14)
[2016-11-06] MEDS: NexIUM PO SCH (11:25)
[2016-11-06] MEDS: PEPCID TAB 20 MG PO SCH ×2 (11:25→21:57)
[2016-11-06] MEDS: COLACE CAP 100 MG PO SCH ×2 (11:25→21:56)
[2016-11-06] MEDS: NORCO 5/325 MG TAB PO PRN ×2 (11:25→18:54)
[2016-11-06] MEDS: ZESTRIL TAB 10 MG PO SCH ×2 (11:25→21:55)
[2016-11-06] MEDS: SINGULAIR TAB 10 MG PO SCH (11:26)
[2016-11-06] MEDS: LASIX PO SCH ×2 (11:26→21:57)
--- NOTE | 2016-11-06 13:43 | PCM.PROG ---
Progress Note - Progress Note for Day of Date: 11/06/16 - Subjective Subjective: Patient is a 76 yo female who was admitted with CHF. She is having difficulty getting up and down and has very limited mobility related to back pain. Dr. Heredia is to perform a kyphoplasty today. Patient states she is ready to have the procedure done and hopes to get some pain relief. Vital signs this am are 97.5, 68, 20, 90%, 110/55. Labs are within normal limits with the exception of RBC 3.25, Hgb 10.6, Hct 30.9, MPV 7.3, Neut# 5.7, BUN 29, Creatinine 1.37, Est GFR 40, Glucose 108, AST 14, Albumin 2.8, Albumin 2.8, Albumin/Globulin Ratio 0.7. We will follow up with patient in the am and plan to change her to swingbed status for physical therapy. - Past Medical Family Social History Past Med/Fam/Surg Hx: No changes since H&P Allergies: Allergies MS Hydromorphone [From Dilaudid] Allergy (Intermediate, Verified 08/16/16 17:26) breathing problems MS Meperidine [From Demerol HCl] Allergy (Intermediate, Verified 08/16/16 17:26) RASH MS Codeine [Codeine] Allergy (Verified 08/16/16 17:26) MS Prednisone [Prednisone] Allergy (Verified 08/16/16 17:26) - Review of Systems ROS: No change since H&P - Vital Signs and I&O's Vital Signs: 97.5, 68, 20, 90%, 110/55 Intake and Output: Intake & Output 11/04/16 11/05/16 11/06/16 11/07/16 11:59 11:59 11:59 11:59 Intake Total 880 1060 630 Output Total 300 Balance 880 760 630 - Physical Exam Oriented: Normal Eyes: Normal Ear: Normal Nose: Normal Throat: Normal Respiratory: Normal Cardiovascular: Normal : Normal Auscultation: Bowel Sounds: Normal Tenderness: Normal Skin: Bruising (scattered) Musculoskeletal: Back:Lumbar (tenderness), Instability (pain, patient unable to move without severe pain to back) Psychiatric: Normal Mood Description: Calm Affect: Normal Speech Pattern: Clear, Appropriate - Laboratory and Diagnostics Result Diagrams: 11/06/16 03:10 11/06/16 03:10 Labs: Laboratory WBC 8.8 X10^3/uL (3.6-10.0) 11/06/16 03:10 RBC 3.25 X10^6/uL (3.5-5.4) L 11/06/16 03:10 Hgb 10.6 g/dL (12.0-16.0) L 11/06/16 03:10 Hct 30.9 % (36.0-47.0) L 11/06/16 03:10 MCV 95.1 fL (80.0-100.0) 11/06/16 03:10 MCH 32.7 pg (27.0-34.0) 11/06/16 03:10 MCHC 34.4 g/dL (33.0-35.0) 11/06/16 03:10 RDW 14.2 % (11.6-16.5) 11/06/16 03:10 Plt Count 363 X10^3/uL (150.0-450.0) 11/06/16 03:10 MPV 7.3 fL (7.4-11.0) L 11/06/16 03:10 Neut % 65.1 % (42.0-75.0) 11/06/16 03:10 Lymph % 21.7 % (21.0-51.0) 11/06/16 03:10 [place] % 9.6 % (0.0-13.0) 11/06/16 03:10 Eos % 2.8 % (0.9-2.9) 11/06/16 03:10 Baso % 0.8 % (0.2-1.0) 11/06/16 03:10 Neut # 5.7 x10^3/uL (2.2-4.8) H 11/06/16 03:10 Lymph # 1.9 X10^3/uL (1.3-2.9) 11/06/16 03:10 [place] # 0.8 x10^3/uL (0.3-0.8) 11/06/16 03:10 Eos # 0.2 x10^3/uL (0.0-0.2) 11/06/16 03:10 Baso # 0.1 X10^3/uL (0.0-0.1) 11/06/16 03:10 Absolute Nucleated RBC 0.0 /100WBC 11/06/16 03:10 ESR 47 MM/HOUR (0-20) H 11/01/16 03:15 Sodium 139 mmol/L (136-145) 11/06/16 03:10 Corrected Sodium TNP 11/06/16 03:10 Potassium 5.0 mmol/L (3.5-5.1) 11/06/16 03:10 Chloride 101 mmol/L (98-107) 11/06/16 03:10 Carbon Dioxide 30.5 mmol/L (21-32) 11/06/16 03:10 BUN 29 mg/dL (7-18) H 11/06/16 03:10 Creatinine 1.37 mg/dL (0.55-1.02) H 11/06/16 03:10 Est GFR (MDRD) Af Amer 48 (>60) L 11/06/16 03:10 Est GFR (MDRD) Non-Af 40 (>60) L 11/06/16 03:10 Glucose 108 mg/dL (65-99) H 11/06/16 03:10 Calcium 8.9 mg/dL (8.5-10.1) 11/06/16 03:10 Corrected Calcium 9.9 mg/dL (8.5-10.1) 11/06/16 03:10 Total Bilirubin 0.30 mg/dL (0.2-1.0) 11/06/16 03:10 AST 14 Units/L (15-37) L 11/06/16 03:10 ALT 13 Units/L (12-78) 11/06/16 03:10 Alkaline Phosphatase 98 Units/L (46-116) 11/06/16 03:10 C-Reactive Protein 56.40 mg/L (0-3.0) H 11/01/16 03:15 B-Natriuretic Peptide 240 pg/mL (0-79) H 10/31/16 13:32 Total Protein 6.7 g/dL (6.4-8.2) 11/06/16 03:10 Albumin 2.8 g/dL (3.4-5.0) L 11/06/16 03:10 Globulin 3.9 g/dL (2.5-4.5) 11/06/16 03:10 Albumin/Globulin Ratio 0.7 Ratio (1.1-2.1) L 11/06/16 03:10 Specimen Type Clean catch urine 10/31/16 15:05 Urine Color Pale yellow (YELLOW) 10/31/16 15:05 Urine Appearance Clear (CLEAR) 10/31/16 15:05 Urine pH 6.0 (5.0 - 8.0) 10/31/16 15:05 Ur Specific [place] 1.010 (1.000-1.030) 10/31/16 15:05 Urine Protein Negative (NEGATIVE) 10/31/16 15:05 Urine Glucose (UA) Negative (NEGATIVE) 10/31/16 15:05 Urine Ketones Negative (NEGATIVE) 10/31/16 15:05 Urine Occult Blood Negative (NEGATIVE) 10/31/16 15:05 Urine Nitrite Negative (NEGATIVE) 10/31/16 15:05 Urine Bilirubin Negative (NEGATIVE) 10/31/16 15:05 Urine Urobilinogen Normal (NORMAL) 10/31/16 15:05 Ur Leukocyte Esterase Negative (NEGATIVE) 10/31/16 15:05 Urine RBC 0-2 /HPF (NEGATIVE) 10/31/16 15:05 Urine WBC None seen /HPF (NEGATIVE) 10/31/16 15:05 Ur Squamous Epith Cells Negative /HPF (NEGATIVE) 10/31/16 15:05 Amorphous Sediment Trace /HPF (NEGATIVE) 10/31/16 15:05 Urine Bacteria Negative /HPF (NEGATIVE) 10/31/16 15:05 Ur Culture Indicated? No/not indicated 10/31/16 15:05 - Plan (1) CHF (congestive heart failure) Status: Acute Qualifiers: Congestive heart failure type: C Congestive heart failure chronicity: C Plan: continue lasix (2) Back pain Status: Acute Qualifiers: Back pain location: B Chronicity: C Back pain laterality: B Sciatica presence: S Sciatica laterality: S Plan: norco and ultram PRN and Fentanyl patch, consult heredia (3) Dyslipidemia Status: Chronic (4) GERD (gastroesophageal reflux disease) Status: Chronic Qualifiers: Esophagitis presence: E Plan: continue crestor, monitor (5) HTN (hypertension) Status: Chronic Qualifiers: Hypertension type: H Plan: continue lisinopril (6) Coronary artery disease Status: Chronic Qualifiers: Coronary Disease-Associated Artery/Lesion type: [place] artery [place] vs. transplanted heart: [place] heart Associated angina: with stable angina Qualified Code(s): I25.118 - Atherosclerotic heart disease of [place] coronary artery with other forms of angina pectoris Plan: continue coreg
[2016-11-06] MEDS ORDERED: VERSED ONE (15:43)
[2016-11-06] MEDS ORDERED: XYLOCAINE 2 % (PLAIN) ONE (15:43)
[2016-11-06] MEDS ORDERED: DIPRIVAN VIAL ONE (15:43)
[2016-11-06] MEDS: ULTRAM PO PRN ×2 (15:46→22:15)
[2016-11-06] MEDS: MILK OF MAGNESIA PO SCH (21:57)
[2016-11-06] MEDS: CRESTOR TAB 10 MG PO SCH (21:57)
[2016-11-07] MEDS: NORCO 5/325 MG TAB PO PRN ×3 (01:49→17:31)
[2016-11-07] MEDS: CHRONULAC PO SCH ×4 (04:36→16:53)
[2016-11-07 05:00] LABS: BASOPHILS # (AUTO) 0.1 X10^3/uL (0.0-0.1); BASOPHILS % (AUTO) 0.9 % (0.2-1.0); EOSINOPHILS # (AUTO) 0.3 x10^3/uL (0.0-0.2); HEMATOCRIT 28.8 % (36.0-47.0); HEMOGLOBIN 9.9 g/dL (12.0-16.0); LYMPHOCYTES # (AUTO) 1.7 X10^3/uL (1.3-2.9); LYMPHOCYTES % (AUTO) 19.7 % (21.0-51.0); MEAN CORPUSCULAR HEMOGLOBIN 31.6 pg (27.0-34.0); MEAN CORPUSCULAR HGB CONC 34.4 g/dL (33.0-35.0); MEAN CORPUSCULAR VOLUME 91.7 fL (80.0-100.0); MEAN PLATELET VOLUME 7.2 fL (7.4-11.0); MONOCYTES # (AUTO) 0.9 x10^3/uL (0.3-0.8); MONOCYTES % (AUTO) 11.1 % (0.0-13.0); NEUTROPHILS # (AUTO) 5.6 x10^3/uL (2.2-4.8); NEUTROPHILS % (AUTO) 65.3 % (42.0-75.0); PLATELET COUNT 340 X10^3/uL (150.0-450.0); RED BLOOD COUNT 3.14 X10^6/uL (3.5-5.4); RED CELL DISTRIBUTION WIDTH 14.5 % (11.6-16.5); WHITE BLOOD COUNT 8.6 X10^3/uL (3.6-10.0)
[2016-11-07 05:21] LABS: ALBUMIN 2.6 g/dL (3.4-5.0); CALCIUM 8.4 mg/dL (8.5-10.1); CARBON DIOXIDE 30.3 mmol/L (21-32); COR CA(FOR HYPOALB) 9.5 mg/dL (8.5-10.1); CREATININE 1.19 mg/dL (0.55-1.02); TOTAL PROTEIN 6.3 g/dL (6.4-8.2)
[2016-11-07] MEDS: COLACE CAP 100 MG PO SCH ×2 (09:18→20:48)
[2016-11-07] MEDS: LASIX PO SCH ×2 (09:18→20:50)
[2016-11-07] MEDS: SINGULAIR TAB 10 MG PO SCH (09:18)
[2016-11-07] MEDS: ZESTRIL TAB 10 MG PO SCH ×2 (09:18→20:48)
[2016-11-07] MEDS: PEPCID TAB 20 MG PO SCH ×2 (09:18→20:48)
[2016-11-07] MEDS: COREG TAB 12.5 MG PO SCH ×2 (09:18→20:50)
[2016-11-07] MEDS: NexIUM PO SCH (09:18)
[2016-11-07] MEDS: CHECK PATCH XX SCH ×2 (11:55→20:46)
--- NOTE | 2016-11-07 12:58 | PCM.PROG ---
Progress Note - Progress Note for Day of Date: 11/07/16 - Subjective Subjective: Patient is a 76yo who is post op kyphoplasty of L1 and L3. Patient states she is very sore this morning. She refused physical therapy yesterday. Patient educated on importance of working with physical therapy so that she can get some of her mobility and ROM of back. Patient understood and stated she will working with them. Vital signs this am 97.9, 66, 18, 94% 110/54. Labs within normal limits with the exception of RBC 3.14, Hgb 9.9, Hct 28.8, MPV 7.2 , Lymph% 19.7, Eos% 3.0, Neut# 5.6, [place]# 0.9, Eos# 0.3, BUN 31, Creatinine 1.19 , Est GFR 47, Glucose 121, Calcium 8.4, Total protein 6.3, Albumin 2.6, Albumin/ Globulin Ratio 0.7. we will follow up with patient in the am with repeat labs. We are still awaiting placement for patient at [facility] as she has decided she wants to go to [facility] in [place]. - Past Medical Family Social History Past Med/Fam/Surg Hx: No changes since H&P Allergies: Allergies MS Hydromorphone [From Dilaudid] Allergy (Intermediate, Verified 08/16/16 17:26) breathing problems MS Meperidine [From Demerol HCl] Allergy (Intermediate, Verified 08/16/16 17:26) RASH MS Codeine [Codeine] Allergy (Verified 08/16/16 17:26) MS Prednisone [Prednisone] Allergy (Verified 08/16/16 17:26) - Review of Systems ROS: No change since H&P - Vital Signs and I&O's Vital Signs: 97.9, 66, 18, 94% 110/54 Intake and Output: Intake & Output 11/05/16 11/06/16 11/07/16 11/08/16 11:59 11:59 11:59 11:59 Intake Total 1060 630 720 Output Total 300 600 Balance 760 630 120 - Physical Exam Oriented: Normal Eyes: Normal Ear: Normal Nose: Normal Throat: Normal Respiratory: Normal Cardiovascular: Normal : Normal Auscultation: Bowel Sounds: Normal Tenderness: Normal Musculoskeletal: Back:Lumbar (tenderness), Instability (pain, patient unable to move without severe pain to back) Psychiatric: Normal Mood Description: Calm Affect: Normal Speech Pattern: Clear, Appropriate - Laboratory and Diagnostics Result Diagrams: 11/07/16 03:30 11/07/16 03:30 Labs: Laboratory WBC 8.6 X10^3/uL (3.6-10.0) 11/07/16 03:30 RBC 3.14 X10^6/uL (3.5-5.4) L 11/07/16 03:30 Hgb 9.9 g/dL (12.0-16.0) L 11/07/16 03:30 Hct 28.8 % (36.0-47.0) L 11/07/16 03:30 MCV 91.7 fL (80.0-100.0) 11/07/16 03:30 MCH 31.6 pg (27.0-34.0) 11/07/16 03:30 MCHC 34.4 g/dL (33.0-35.0) 11/07/16 03:30 RDW 14.5 % (11.6-16.5) 11/07/16 03:30 Plt Count 340 X10^3/uL (150.0-450.0) 11/07/16 03:30 MPV 7.2 fL (7.4-11.0) L 11/07/16 03:30 Neut % 65.3 % (42.0-75.0) 11/07/16 03:30 Lymph % 19.7 % (21.0-51.0) L 11/07/16 03:30 [place] % 11.1 % (0.0-13.0) 11/07/16 03:30 Eos % 3.0 % (0.9-2.9) H 11/07/16 03:30 Baso % 0.9 % (0.2-1.0) 11/07/16 03:30 Neut # 5.6 x10^3/uL (2.2-4.8) H 11/07/16 03:30 Lymph # 1.7 X10^3/uL (1.3-2.9) 11/07/16 03:30 [place] # 0.9 x10^3/uL (0.3-0.8) H 11/07/16 03:30 Eos # 0.3 x10^3/uL (0.0-0.2) H 11/07/16 03:30 Baso # 0.1 X10^3/uL (0.0-0.1) 11/07/16 03:30 Absolute Nucleated RBC 0.0 /100WBC 11/07/16 03:30 ESR 47 MM/HOUR (0-20) H 11/01/16 03:15 Sodium 138 mmol/L (136-145) 11/07/16 03:30 Corrected Sodium 139 mmol/L (136-145) 11/07/16 03:30 Potassium 4.2 mmol/L (3.5-5.1) 11/07/16 03:30 Chloride 101 mmol/L (98-107) 11/07/16 03:30 Carbon Dioxide 30.3 mmol/L (21-32) 11/07/16 03:30 BUN 31 mg/dL (7-18) H 11/07/16 03:30 Creatinine 1.19 mg/dL (0.55-1.02) H 11/07/16 03:30 Est GFR (MDRD) Af Amer 56 (>60) L 11/07/16 03:30 Est GFR (MDRD) Non-Af 47 (>60) L 11/07/16 03:30 Glucose 121 mg/dL (65-99) H 11/07/16 03:30 Calcium 8.4 mg/dL (8.5-10.1) L 11/07/16 03:30 Corrected Calcium 9.5 mg/dL (8.5-10.1) 11/07/16 03:30 Total Bilirubin 0.30 mg/dL (0.2-1.0) 11/07/16 03:30 AST 15 Units/L (15-37) 11/07/16 03:30 ALT 14 Units/L (12-78) 11/07/16 03:30 Alkaline Phosphatase 98 Units/L (46-116) 11/07/16 03:30 C-Reactive Protein 56.40 mg/L (0-3.0) H 11/01/16 03:15 B-Natriuretic Peptide 240 pg/mL (0-79) H 10/31/16 13:32 Total Protein 6.3 g/dL (6.4-8.2) L 11/07/16 03:30 Albumin 2.6 g/dL (3.4-5.0) L 11/07/16 03:30 Globulin 3.7 g/dL (2.5-4.5) 11/07/16 03:30 Albumin/Globulin Ratio 0.7 Ratio (1.1-2.1) L 11/07/16 03:30 Specimen Type Clean catch urine 10/31/16 15:05 Urine Color Pale yellow (YELLOW) 10/31/16 15:05 Urine Appearance Clear (CLEAR) 10/31/16 15:05 Urine pH 6.0 (5.0 - 8.0) 10/31/16 15:05 Ur Specific [place] 1.010 (1.000-1.030) 10/31/16 15:05 Urine Protein Negative (NEGATIVE) 10/31/16 15:05 Urine Glucose (UA) Negative (NEGATIVE) 10/31/16 15:05 Urine Ketones Negative (NEGATIVE) 10/31/16 15:05 Urine Occult Blood Negative (NEGATIVE) 10/31/16 15:05 Urine Nitrite Negative (NEGATIVE) 10/31/16 15:05 Urine Bilirubin Negative (NEGATIVE) 10/31/16 15:05 Urine Urobilinogen Normal (NORMAL) 10/31/16 15:05 Ur Leukocyte Esterase Negative (NEGATIVE) 10/31/16 15:05 Urine RBC 0-2 /HPF (NEGATIVE) 10/31/16 15:05 Urine WBC None seen /HPF (NEGATIVE) 10/31/16 15:05 Ur Squamous Epith Cells Negative /HPF (NEGATIVE) 10/31/16 15:05 Amorphous Sediment Trace /HPF (NEGATIVE) 10/31/16 15:05 Urine Bacteria Negative /HPF (NEGATIVE) 10/31/16 15:05 Ur Culture Indicated? No/not indicated 10/31/16 15:05 - Plan (1) CHF (congestive heart failure) Status: Acute Qualifiers: Congestive heart failure type: C Congestive heart failure chronicity: C Plan: continue lasix (2) Back pain Status: Acute Qualifiers: Back pain location: B Chronicity: C Back pain laterality: B Sciatica presence: S Sciatica laterality: S Plan: norco and ultram PRN and Fentanyl patch (3) Dyslipidemia Status: Chronic (4) GERD (gastroesophageal reflux disease) Status: Chronic Qualifiers: Esophagitis presence: E Plan: continue crestor, monitor (5) HTN (hypertension) Status: Chronic Qualifiers: Hypertension type: H Plan: continue lisinopril (6) Coronary artery disease Status: Chronic Qualifiers: Coronary Disease-Associated Artery/Lesion type: [place] artery [place] vs. transplanted heart: [place] heart Associated angina: with stable angina Qualified Code(s): I25.118 - Atherosclerotic heart disease of [place] coronary artery with other forms of angina pectoris Plan: continue coreg
[2016-11-07] MEDS: ULTRAM PO PRN ×2 (13:51→20:48)
[2016-11-07] MEDS: CRESTOR TAB 10 MG PO SCH (20:49)
[2016-11-07] MEDS: MILK OF MAGNESIA PO SCH (21:57)
[2016-11-08] MEDS: CHRONULAC PO SCH ×3 (00:11→15:02)
[2016-11-08] MEDS: NORCO 5/325 MG TAB PO PRN ×2 (04:20→15:01)
[2016-11-08] MEDS: ULTRAM PO PRN (08:55)
[2016-11-08] MEDS: SINGULAIR TAB 10 MG PO SCH (09:24)
[2016-11-08] MEDS: ZESTRIL TAB 10 MG PO SCH (09:24)
[2016-11-08] MEDS: PEPCID TAB 20 MG PO SCH (09:24)
[2016-11-08] MEDS: COREG TAB 12.5 MG PO SCH (09:24)
[2016-11-08] MEDS: COLACE CAP 100 MG PO SCH (09:24)
[2016-11-08] MEDS: LASIX PO SCH (09:25)
[2016-11-08] MEDS: NexIUM PO SCH (09:25)
[2016-11-08] MEDS: CHECK PATCH XX SCH (09:25)
--- NOTE | 2016-11-08 11:01 | DR.CARTERD ---
- Discharge Summary for: Discharge Summary for Date of:: 11/08/16 - Admission Date Date of Admission: 10/31/16 - Admission Diagnoses Admission Diagnosis: CHF. Hypertension. Hyperlipidemia - Discharge Date Discharge Date: 11/08/16 - Discharge Diagnoses Discharge Diagnosis: compression fractures of the L1, L2, L3, L4 CHF Hypertension Hyperlipidemia - Hospital Course Hospital Course: Patient is a 76 yo female who was admitted with CHF. Her lower extremity edema has improved however, she his having difficulty getting up and down she has been seen by Dr. Shields and was awaiting cardiac clearance to under go vetebroplasty. We consulted Charlene to see if he do can do the surgery while she is in the hospital due to her inability to move without severe pain. Physical therapy tried to work with her and they were not able to perform in mobility related to the pain. The patient has had an ECHO performed which shows 66% EF, Chest xray shows cardiomegaly without definite congestive heart failure and COPD. EKG is Normal, patient is medically and cardiac cleared for surgery. Dr. Shields seen patient and ordered an lumbar xray and lumbar MRI. Lumbar Xray showed Osetopenia, Levo rotoscoliosis, compression fractures of L2 and l3, Mild compression of the superior end plate of L$. Degenerative disc disease at all levels most prominent at L3-4, L4-5, L5-S1. Facet Degenerative Joint Disease. The Lumbar MRI shows compression fractures of the L1, L2, L3, L4 with the L1 compression fracture recent and new when compared with the prior examination. The characteristics of the L3 fracture suggest eased extension and the L4 fracture unchanged from the prior exam. Dr. Shields performed a kyphoplasty of the of L1 and L#. We discussed option of swingbed and patient decided she would like to go to [facility] for physical therapy rehabilitation. Vital signs this am are 98.0, 60, 18, 93%, 103/50. Labs this am are within normal limits with the exception RBC3.1, Hgb 9.9, Hct 28.8, MPV 7.2, Lymph% 19.7, Eos% 3.0, Neut# 5.6, [place]# 0.9, Eos# 0.3, BUN 31, Creatinine 1.119 We are going to discharge patient in stable condition to [facility]. She is to continue her home medications and follow up with Dr. Shields. Labs: RBC3.1, Hgb 9.9, Hct 28.8, MPV 7.2, Lymph% 19.7, Eos% 3.0, Neut# 5.6, [place]# 0.9 , Eos# 0.3, BUN 31, Creatinine 1.119 - Discharge Medications Discharge Medications: Furosemide [LASIX TAB 20 MG *] 20 mg PO BID 10/31/16 [History] Fentanyl 25 Mcg/Hr [DURAGESIC PATCH 25 mcg/hr *] 1 ea TD Q72H #10 patch [Rx] Hydrocodone/Acetaminophen [Hydrocodon-Acetaminophen 5-325] 1 - 2 tab PO TID PRN #90 tablet 11/08/16 [Rx] Tramadol HCl [ULTRAM 50 MG *] 50 - 100 mg PO Q6H PRN #90 tab 11/08/16 [Rx] - Discharge Disposition Discharge Disposition: [facility]
[2016-11-08 13:41] VITALS: BP 117/56
== END 2016-11-08 15:50 | DRG 982 ==
LOC: MED/SURG 12:02 → OBSVTOIN 11-02 09:00
PROVIDERS: ADMIT Internal Medicine; ATTEND Internal Medicine
PROC: 0QU03JZ Supplement Lumbar Vertebra with Synthetic Substitute, Percutaneous Approach (ICD-10-PCS; 2016-11-06)
PROC: 0QS03ZZ Reposition Lumbar Vertebra, Percutaneous Approach (ICD-10-PCS; principal; 2016-11-06 11:00)
DX: I50.9 Heart failure, unspecified (principal); M48.56XA Collapsed vertebra, not elsewhere classified, lumbar region, initial encounter for fracture; E78.2 Mixed hyperlipidemia; K21.9 Gastro-esophageal reflux disease without esophagitis; I10 Essential (primary) hypertension; I25.118 Atherosclerotic heart disease of native coronary artery with other forms of angina pectoris; M54.5 Low back pain; J44.9 Chronic obstructive pulmonary disease, unspecified; M25.551 Pain in right hip; R60.0 Localized edema; I51.7 Cardiomegaly; R26.89 Other abnormalities of gait and mobility
CPT/HCPCS: 36415; 71010; 71020; 72100; 72148; 76000; 80053; 81001; 83880; 85025; 85652; 86140; 93005; 97535; 99231; A4216; A4222; S0020; S0181; G0378; J0690; J1940; J2001; J2250; J3010; J3490; J7120

== ENCOUNTER 2017-02-06 17:11 | Inpatient (IN) | payer OTHER, MEDICAID ==
[2017-02-06] MEDS: LASIX IVP SCH (19:35)
[2017-02-06 19:51] LABS: BASOPHILS # (AUTO) 0.1 X10^3/uL (0.0-0.1); BASOPHILS % (AUTO) 0.9 % (0.2-1.0); EOSINOPHILS # (AUTO) 0.1 x10^3/uL (0.0-0.2); EOSINOPHILS % (AUTO) 2.1 % (0.9-2.9); HEMATOCRIT 27.7 % (36.0-47.0); HEMOGLOBIN 9.6 g/dL (12.0-16.0); LYMPHOCYTES # (AUTO) 1.3 X10^3/uL (1.3-2.9); LYMPHOCYTES % (AUTO) 20.3 % (21.0-51.0); MEAN CORPUSCULAR HEMOGLOBIN 35.6 pg (27.0-34.0); MEAN CORPUSCULAR HGB CONC 34.8 g/dL (33.0-35.0); MEAN CORPUSCULAR VOLUME 102.3 fL (80.0-100.0); MEAN PLATELET VOLUME 7.2 fL (7.4-11.0); MONOCYTES # (AUTO) 0.6 x10^3/uL (0.3-0.8); MONOCYTES % (AUTO) 8.8 % (0.0-13.0); NEUTROPHILS # (AUTO) 4.3 x10^3/uL (2.2-4.8); NEUTROPHILS % (AUTO) 67.9 % (42.0-75.0); PLATELET COUNT 398 X10^3/uL (150.0-450.0); RED BLOOD COUNT 2.71 X10^6/uL (3.5-5.4); RED CELL DISTRIBUTION WIDTH 14.9 % (11.6-16.5); WHITE BLOOD COUNT 6.3 X10^3/uL (3.6-10.0)
[2017-02-06 19:57] LABS: ALANINE AMINOTRANSFERASE 14 Units/L (12-78); ALBUMIN 2.8 g/dL (3.4-5.0); ALKALINE PHOSPHATASE 102 Units/L (46-116); ASPARTATE AMINO TRANSFERASE 15 Units/L (15-37); BLOOD UREA NITROGEN 12 mg/dL (7-18); CHLORIDE 104 mmol/L (98-107); CREATININE 1.04 mg/dL (0.55-1.02); SODIUM 139 mmol/L (136-145); TOTAL PROTEIN 7.1 g/dL (6.4-8.2); eGFR BLACK RACES > 60 (>60); eGFR NON BLACK RACES 54 (>60)
[2017-02-06 20:16] LABS: B-TYPE NATRIURETIC PEPTIDE 326 pg/mL (0-79)
--- NOTE | 2017-02-06 22:28 | RAD ---
Chest, one view Indication: Shortness of breath, leg swelling. Comparison: 11/02/2016 Findings: Mild cardiac silhouette enlargement, lung hyperinflation, and chronic interstitial changes of the lungs appear similar to prior. There is no evidence for overt superimposed edema, dense infilt rates, or large effusion. There is mild linear scarring versus subsegmental atelectasis of the right lung base. Impression: Stable cardiomegaly and findings of COPD without acute chest process. Reported By:
[2017-02-07] MEDS: LASIX IVP SCH ×2 (00:11→09:47)
[2017-02-07 06:09] LABS: BASOPHILS % (AUTO) 0.6 % (0.2-1.0); EOSINOPHILS # (AUTO) 0.1 x10^3/uL (0.0-0.2); EOSINOPHILS % (AUTO) 2.1 % (0.9-2.9); HEMATOCRIT 25.3 % (36.0-47.0); HEMOGLOBIN 9.1 g/dL (12.0-16.0); LYMPHOCYTES # (AUTO) 1.6 X10^3/uL (1.3-2.9); LYMPHOCYTES % (AUTO) 25.3 % (21.0-51.0); MEAN CORPUSCULAR HEMOGLOBIN 35.5 pg (27.0-34.0); MEAN CORPUSCULAR VOLUME 98.5 fL (80.0-100.0); MEAN PLATELET VOLUME 7.4 fL (7.4-11.0); MONOCYTES # (AUTO) 0.7 x10^3/uL (0.3-0.8); MONOCYTES % (AUTO) 11.5 % (0.0-13.0); NEUTROPHILS # (AUTO) 3.9 x10^3/uL (2.2-4.8); NEUTROPHILS % (AUTO) 60.5 % (42.0-75.0); PLATELET COUNT 354 X10^3/uL (150.0-450.0); RED BLOOD COUNT 2.57 X10^6/uL (3.5-5.4); RED CELL DISTRIBUTION WIDTH 14.7 % (11.6-16.5); WHITE BLOOD COUNT 6.4 X10^3/uL (3.6-10.0)
[2017-02-07 06:26] LABS: B-TYPE NATRIURETIC PEPTIDE 213 pg/mL (0-79)
[2017-02-07 06:40] LABS: ALANINE AMINOTRANSFERASE 13 Units/L (12-78); ALBUMIN 2.6 g/dL (3.4-5.0); ALKALINE PHOSPHATASE 92 Units/L (46-116); ASPARTATE AMINO TRANSFERASE 16 Units/L (15-37); BLOOD UREA NITROGEN 13 mg/dL (7-18); CALCIUM 8.8 mg/dL (8.5-10.1); CARBON DIOXIDE 26.7 mmol/L (21-32); CHLORIDE 102 mmol/L (98-107); COR CA(FOR HYPOALB) 9.9 mg/dL (8.5-10.1); CREATININE 1.09 mg/dL (0.55-1.02); SODIUM 139 mmol/L (136-145); TOTAL PROTEIN 6.7 g/dL (6.4-8.2); eGFR BLACK RACES > 60 (>60); eGFR NON BLACK RACES 52 (>60)
--- NOTE | 2017-02-07 07:10 | RAD ---
Chest AP portable Indication: Dyspnea Comparison: February 06, 2017 radiograph. Findings: There is no pneumothorax or effusion. There is no consolidation. There is cardiomegaly and COPD change. Mild increased vascular markings noted. Impression: Cardiomegaly and COPD with increasing vascular markings compared to the prior. This may b e due to decreased inspiration but correlate clinically for pulmonary venous hypertension Reported By:
--- NOTE | 2017-02-07 10:48 | DR.UPDATE ---
H&P Update History and Physical Update: WAS SEEN IN THE OFFICE ON 02/06/17. A H&P WAS COMPLETED PRIOR TO ADMISSION. PATIENT HAS BEEN SEEN AND EXAMINED WITH NO CHANGES NOTED TO H&P. Changes noted: NO Yes with the following:
[2017-02-07] MEDS: POTASSIUM CHLORIDE LIQ 20 MEQ UDC PO SCH (10:49)
[2017-02-07] MEDS: ALBUMIN HUMAN 25%- 100ML 100 ML IV SCH (10:49)
[2017-02-07] MEDS: NORCO 5/325 MG TAB PO SCH ×2 (14:22→21:06)
--- NOTE | 2017-02-07 16:34 | VAS ---
HISTORY: Extremity pain, swelling, and edema Study: Bilateral lower extremity Doppler venous ultrasound. TECHNIQUE: Multiple kline scale and color flow Doppler images of the deep venous system were obtained of the right and left lower extremity. FINDINGS: The deep venous system of the right and left lower extremities were evaluated from the lev el of the common femoral veins through the popliteal veins, bilaterally. Normal color flow and augme ntation can be observed. In addition, normal compression is seen throughout the deep venous system. No Iraheta's cyst is seen. IMPRESSION: 1. Negative examination for DVT. Reported By:
[2017-02-07] MEDS: KLONOPIN TAB 1 MG PO SCH (21:05)
[2017-02-08 06:07] LABS: BASOPHILS # (AUTO) 0.1 X10^3/uL (0.0-0.1); BASOPHILS % (AUTO) 0.9 % (0.2-1.0); EOSINOPHILS # (AUTO) 0.2 x10^3/uL (0.0-0.2); EOSINOPHILS % (AUTO) 2.9 % (0.9-2.9); HEMATOCRIT 27.6 % (36.0-47.0); HEMOGLOBIN 9.4 g/dL (12.0-16.0); LYMPHOCYTES # (AUTO) 2.2 X10^3/uL (1.3-2.9); MEAN CORPUSCULAR HEMOGLOBIN 29.9 pg (27.0-34.0); MEAN CORPUSCULAR HGB CONC 34.2 g/dL (33.0-35.0); MEAN CORPUSCULAR VOLUME 87.4 fL (80.0-100.0); MONOCYTES # (AUTO) 0.8 x10^3/uL (0.3-0.8); MONOCYTES % (AUTO) 12.5 % (0.0-13.0); NEUTROPHILS # (AUTO) 3.1 x10^3/uL (2.2-4.8); NEUTROPHILS % (AUTO) 48.7 % (42.0-75.0); PLATELET COUNT 372 X10^3/uL (150.0-450.0); RED BLOOD COUNT 3.16 X10^6/uL (3.5-5.4); RED CELL DISTRIBUTION WIDTH 14.9 % (11.6-16.5); WHITE BLOOD COUNT 6.3 X10^3/uL (3.6-10.0)
[2017-02-08 06:24] LABS: ALANINE AMINOTRANSFERASE 13 Units/L (12-78); ALBUMIN 2.8 g/dL (3.4-5.0); ALKALINE PHOSPHATASE 82 Units/L (46-116); ASPARTATE AMINO TRANSFERASE 12 Units/L (15-37); BLOOD UREA NITROGEN 20 mg/dL (7-18); CALCIUM 8.7 mg/dL (8.5-10.1); CARBON DIOXIDE 28.8 mmol/L (21-32); CHLORIDE 104 mmol/L (98-107); COR CA(FOR HYPOALB) 9.7 mg/dL (8.5-10.1); CREATININE 0.95 mg/dL (0.55-1.02); SODIUM 142 mmol/L (136-145); TOTAL PROTEIN 6.7 g/dL (6.4-8.2); eGFR BLACK RACES > 60 (>60); eGFR NON BLACK RACES > 60 (>60)
[2017-02-08] MEDS: NexIUM PO SCH (08:38)
[2017-02-08] MEDS: POTASSIUM CHLORIDE LIQ 20 MEQ UDC PO SCH (08:38)
[2017-02-08] MEDS: ALBUMIN HUMAN 25%- 100ML 100 ML IV SCH (08:39)
[2017-02-08] MEDS ORDERED: NS 250 ML IV 250 ML IV ONE (08:48)
[2017-02-08 08:53] VITALS: BMI 30.6
[2017-02-08] MEDS: NORCO 5/325 MG TAB PO SCH ×4 (14:11→21:04)
[2017-02-08] MEDS: KLONOPIN TAB 1 MG PO SCH (21:05)
[2017-02-09 05:47] LABS: BASOPHILS # (AUTO) 0.1 X10^3/uL (0.0-0.1); BASOPHILS % (AUTO) 0.8 % (0.2-1.0); EOSINOPHILS # (AUTO) 0.2 x10^3/uL (0.0-0.2); EOSINOPHILS % (AUTO) 2.8 % (0.9-2.9); HEMATOCRIT 26.3 % (36.0-47.0); HEMOGLOBIN 8.8 g/dL (12.0-16.0); LYMPHOCYTES # (AUTO) 2.2 X10^3/uL (1.3-2.9); LYMPHOCYTES % (AUTO) 32.1 % (21.0-51.0); MEAN CORPUSCULAR HEMOGLOBIN 29.9 pg (27.0-34.0); MEAN CORPUSCULAR HGB CONC 33.6 g/dL (33.0-35.0); MEAN PLATELET VOLUME 7.2 fL (7.4-11.0); MONOCYTES # (AUTO) 0.7 x10^3/uL (0.3-0.8); NEUTROPHILS # (AUTO) 3.8 x10^3/uL (2.2-4.8); NEUTROPHILS % (AUTO) 54.3 % (42.0-75.0); PLATELET COUNT 348 X10^3/uL (150.0-450.0); RED BLOOD COUNT 2.95 X10^6/uL (3.5-5.4); RED CELL DISTRIBUTION WIDTH 14.9 % (11.6-16.5); WHITE BLOOD COUNT 6.9 X10^3/uL (3.6-10.0)
[2017-02-09 05:51] LABS: ALANINE AMINOTRANSFERASE 13 Units/L (12-78); ALBUMIN 2.8 g/dL (3.4-5.0); ALKALINE PHOSPHATASE 76 Units/L (46-116); ASPARTATE AMINO TRANSFERASE 14 Units/L (15-37); BLOOD UREA NITROGEN 21 mg/dL (7-18); CALCIUM 8.8 mg/dL (8.5-10.1); CARBON DIOXIDE 26.9 mmol/L (21-32); CHLORIDE 107 mmol/L (98-107); COR CA(FOR HYPOALB) 9.8 mg/dL (8.5-10.1); CREATININE 0.86 mg/dL (0.55-1.02); SODIUM 142 mmol/L (136-145); TOTAL PROTEIN 6.5 g/dL (6.4-8.2); eGFR BLACK RACES > 60 (>60); eGFR NON BLACK RACES > 60 (>60)
[2017-02-09] MEDS: NORCO 5/325 MG TAB PO SCH ×3 (06:08→21:07)
[2017-02-09] MEDS: NexIUM PO SCH (08:29)
[2017-02-09] MEDS: POTASSIUM CHLORIDE LIQ 20 MEQ UDC PO SCH (08:30)
[2017-02-09] MEDS: ALBUMIN HUMAN 25%- 100ML 100 ML IV SCH (08:30)
[2017-02-09] MEDS: KLONOPIN TAB 1 MG PO SCH (21:08)
[2017-02-10 04:38] LABS: BASOPHILS % (AUTO) 0.6 % (0.2-1.0); EOSINOPHILS # (AUTO) 0.2 x10^3/uL (0.0-0.2); EOSINOPHILS % (AUTO) 3.3 % (0.9-2.9); HEMATOCRIT 27.2 % (36.0-47.0); LYMPHOCYTES # (AUTO) 2.3 X10^3/uL (1.3-2.9); LYMPHOCYTES % (AUTO) 31.4 % (21.0-51.0); MEAN CORPUSCULAR HEMOGLOBIN 28.1 pg (27.0-34.0); MEAN CORPUSCULAR HGB CONC 33.1 g/dL (33.0-35.0); MEAN CORPUSCULAR VOLUME 84.7 fL (80.0-100.0); MEAN PLATELET VOLUME 6.9 fL (7.4-11.0); MONOCYTES # (AUTO) 0.6 x10^3/uL (0.3-0.8); MONOCYTES % (AUTO) 8.2 % (0.0-13.0); NEUTROPHILS # (AUTO) 4.2 x10^3/uL (2.2-4.8); NEUTROPHILS % (AUTO) 56.5 % (42.0-75.0); PLATELET COUNT 374 X10^3/uL (150.0-450.0); RED BLOOD COUNT 3.21 X10^6/uL (3.5-5.4); RED CELL DISTRIBUTION WIDTH 14.8 % (11.6-16.5); WHITE BLOOD COUNT 7.4 X10^3/uL (3.6-10.0)
[2017-02-10 04:47] LABS: ALANINE AMINOTRANSFERASE 16 Units/L (12-78); ALBUMIN 2.8 g/dL (3.4-5.0); ALKALINE PHOSPHATASE 82 Units/L (46-116); ASPARTATE AMINO TRANSFERASE 34 Units/L (15-37); BLOOD UREA NITROGEN 18 mg/dL (7-18); CALCIUM 8.9 mg/dL (8.5-10.1); CARBON DIOXIDE 25.4 mmol/L (21-32); CHLORIDE 105 mmol/L (98-107); COR CA(FOR HYPOALB) 9.9 mg/dL (8.5-10.1); CREATININE 0.82 mg/dL (0.55-1.02); SODIUM 139 mmol/L (136-145); TOTAL PROTEIN 6.6 g/dL (6.4-8.2); eGFR BLACK RACES > 60 (>60); eGFR NON BLACK RACES > 60 (>60)
[2017-02-10] MEDS: NORCO 5/325 MG TAB PO SCH ×3 (05:49→21:02)
[2017-02-10] MEDS: POTASSIUM CHLORIDE LIQ 20 MEQ UDC PO SCH (09:14)
[2017-02-10] MEDS: ALBUMIN HUMAN 25%- 100ML 100 ML IV SCH (09:15)
[2017-02-10] MEDS: NexIUM PO SCH (09:15)
--- NOTE | 2017-02-10 09:50 | RAD ---
HISTORY: Shortness of breath. Study: Single-view chest. Comparison: February 07, 2017. Findings: The trachea is midline. The cardiac silhouette is at the upper limits of normal in size and grossly u nchanged. Mild interstitial prominence is noted throughout both lungs similar to the comparison study . There is no focal consolidation, significant pleural effusion or pneumothorax. Right shoulder hemia rthroplasty is again noted. The bony thorax is grossly unremarkable. IMPRESSION: Stable interstitial prominence of the lungs without focal consolidation or pleural effusion. There is no significant change compared with 3 days earlier. Reported By:
[2017-02-10] MEDS: KLONOPIN TAB 1 MG PO SCH (21:03)
--- NOTE | 2017-02-10 21:51 | PCM.PROG ---
Progress Note - Progress Note for Day of Date: 02/07/17 - Subjective Subjective: WAS ADMITTED FOR CHF AND PITTING EDEMA. SHE IS NOTED ALERT AND ORIENTED, LYING IN BED ON MORNING ROUNDS. SHE CONTINUES WITH COMPLAINTS OF SHORTNESS OF BREATH, SWELLING, AND TROUBLE SLEEPING. ON EXAMINATION, LUNGS ARE NOTED WITH WHEEZING BILATERALLY ON AUSCULTATION. ABDOMEN IS SOFT, ROUND, AND NON-TENDER WITH BOWEL SOUNDS NOTED NORMAL IN ALL QUADRANTS. BILATERAL LOWER EXTREMITIES ARE NOTED WITH 1+ PITTING EDEMA, REDNESS, AND TENDERNESS. HER VITAL SIGNS THIS MORNING ARE 98.1-82-18-94%-125/56. CBC, CMP, AND CHEST XRAY WERE OBTAINED. ABNORMAL VITAL SIGNS INCLUDE THE FOLLOWING: RBC 2.57, HGB 9.1, HCT 25.3, CREATININE 1.09, ALBUMIN 2.6, BNP 213. CHEST XRAY REPORTED CARDIOMEGALY AND COPD WITH INCREASING VASCULAR MARKINGS. WE PLAN TO START ALBUMIN 25% DAILY, POTASSIUM ELIQIR 10MEQ DAILY, KLONOPIN 1MG HS, AND OBTAIN A VENOUS DOPPLER. OTHERWISE, WE PLAN TO RECHECK AM LABS AND CONTINUE TO MONITOR PATIENT. - Past Medical Family Social History Past Med/Fam/Surg Hx: No changes since H&P Allergies: Allergies codeine Allergy (Verified 02/06/17 22:08) hydromorphone [From Dilaudid] Allergy (Verified 02/06/17 22:08) meperidine [From Demerol] Allergy (Verified 02/06/17 22:08) prednisone Allergy (Verified 02/06/17 22:08) - Review of Systems ROS: No change since H&P - Vital Signs and I&O's Vital Signs: Temperature 98.1 F Pulse Rate [Left Brachial] 82 Pulse Rate [Bilateral Radial] 75 Respiratory Rate 18 Blood Pressure [Left Arm] 125/56 Blood Pressure [Right Arm] 146/67 Blood Pressure 117/56 O2 Sat by Pulse Oximetry 94 Intake and Output: Intake & Output 02/08/17 02/09/17 02/10/17 02/11/17 11:59 11:59 11:59 11:59 Intake Total 1110 1072 1280 440 Output Total 2700 600 1300 300 Balance -1590 472 -20 140 - Physical Exam Oriented: Normal Eyes: Normal Ear: Normal Nose: Normal Throat: Normal Respiratory: Generalized, Wheezes Cardiovascular: Edema : Normal Auscultation: Bowel Sounds: Normal Palpation: Normal Tenderness: Normal Skin: Normal, Red (bilateral lower extremities ), Tender Musculoskeletal: Normal Psychiatric: Normal Mood Description: Calm Affect: Normal Speech Pattern: Clear, Appropriate - Laboratory and Diagnostics Result Diagrams: 02/11/17 03:50 02/11/17 03:50 Labs: Laboratory WBC 7.4 X10^3/uL (3.6-10.0) 02/10/17 04:10 RBC 3.21 X10^6/uL (3.5-5.4) L 02/10/17 04:10 Hgb 9.0 g/dL (12.0-16.0) L 02/10/17 04:10 Hct 27.2 % (36.0-47.0) L 02/10/17 04:10 MCV 84.7 fL (80.0-100.0) 02/10/17 04:10 MCH 28.1 pg (27.0-34.0) 02/10/17 04:10 MCHC 33.1 g/dL (33.0-35.0) 02/10/17 04:10 RDW 14.8 % (11.6-16.5) 02/10/17 04:10 Plt Count 374 X10^3/uL (150.0-450.0) 02/10/17 04:10 MPV 6.9 fL (7.4-11.0) L 02/10/17 04:10 Neut % 56.5 % (42.0-75.0) 02/10/17 04:10 Lymph % 31.4 % (21.0-51.0) 02/10/17 04:10 [place] % 8.2 % (0.0-13.0) 02/10/17 04:10 Eos % 3.3 % (0.9-2.9) H 02/10/17 04:10 Baso % 0.6 % (0.2-1.0) 02/10/17 04:10 Neut # 4.2 x10^3/uL (2.2-4.8) 02/10/17 04:10 Lymph # 2.3 X10^3/uL (1.3-2.9) 02/10/17 04:10 [place] # 0.6 x10^3/uL (0.3-0.8) 02/10/17 04:10 Eos # 0.2 x10^3/uL (0.0-0.2) 02/10/17 04:10 Baso # 0.0 X10^3/uL (0.0-0.1) 02/10/17 04:10 Absolute Nucleated RBC 0.0 /100WBC 02/10/17 04:10 Sodium 139 mmol/L (136-145) 02/10/17 04:10 Corrected Sodium TNP 02/10/17 04:10 Potassium 4.4 mmol/L (3.5-5.1) 02/10/17 04:10 Chloride 105 mmol/L (98-107) 02/10/17 04:10 Carbon Dioxide 25.4 mmol/L (21-32) 02/10/17 04:10 BUN 18 mg/dL (7-18) 02/10/17 04:10 Creatinine 0.82 mg/dL (0.55-1.02) 02/10/17 04:10 Est GFR (MDRD) Af Amer > 60 (>60) 02/10/17 04:10 Est GFR (MDRD) Non-Af > 60 (>60) 02/10/17 04:10 Glucose 87 mg/dL (65-99) 02/10/17 04:10 Calcium 8.9 mg/dL (8.5-10.1) 02/10/17 04:10 Corrected Calcium 9.9 mg/dL (8.5-10.1) 02/10/17 04:10 Total Bilirubin 0.30 mg/dL (0.2-1.0) 02/10/17 04:10 AST 34 Units/L (15-37) 02/10/17 04:10 ALT 16 Units/L (12-78) 02/10/17 04:10 Alkaline Phosphatase 82 Units/L (46-116) 02/10/17 04:10 B-Natriuretic Peptide 213 pg/mL (0-79) H 02/07/17 03:45 Total Protein 6.6 g/dL (6.4-8.2) 02/10/17 04:10 Albumin 2.8 g/dL (3.4-5.0) L 02/10/17 04:10 Globulin 3.8 g/dL (2.5-4.5) 02/10/17 04:10 Albumin/Globulin Ratio 0.7 Ratio (1.1-2.1) L 02/10/17 04:10 - Plan (1) CHF (congestive heart failure) Status: Acute Qualifiers: Congestive heart failure type: unspecified congestive heart failure type Congestive heart failure chronicity: unspecified congestive heart failure chronicity Qualified Code(s): I50.9 - Heart failure, unspecified Plan: COREG 25MG PO BID, LISINOPRIL 10MG PO BID, LASIX 40MG IV Q12H, SUPPLEMENTAL OXYGEN, CONTINUE TO MONITOR (2) Bilateral edema of lower extremity Status: Acute Plan: LASIX 40MG IV BID, OBTAIN BILATERAL VENOUS DOPPLER, CONTINUE TO MONITOR (3) Hypokalemia Status: Acute Plan: POTASSIUM ELIXIR 10MEQ PO DAILY, CONTINUE TO MONITOR (4) Insomnia Status: Acute Qualifiers: Insomnia type: adjustment Qualified Code(s): F51.02 - Adjustment insomnia Plan: KLONOPIN 1MG PO HS, CONTINUE TO MONITOR
[2017-02-11 05:19] LABS: BASOPHILS % (AUTO) 0.7 % (0.2-1.0); EOSINOPHILS # (AUTO) 0.2 x10^3/uL (0.0-0.2); EOSINOPHILS % (AUTO) 3.1 % (0.9-2.9); HEMATOCRIT 26.5 % (36.0-47.0); HEMOGLOBIN 8.8 g/dL (12.0-16.0); LYMPHOCYTES # (AUTO) 2.1 X10^3/uL (1.3-2.9); LYMPHOCYTES % (AUTO) 30.7 % (21.0-51.0); MEAN CORPUSCULAR HEMOGLOBIN 30.2 pg (27.0-34.0); MEAN CORPUSCULAR HGB CONC 33.2 g/dL (33.0-35.0); MEAN CORPUSCULAR VOLUME 90.8 fL (80.0-100.0); MEAN PLATELET VOLUME 7.1 fL (7.4-11.0); MONOCYTES # (AUTO) 0.6 x10^3/uL (0.3-0.8); NEUTROPHILS # (AUTO) 3.8 x10^3/uL (2.2-4.8); NEUTROPHILS % (AUTO) 56.5 % (42.0-75.0); PLATELET COUNT 346 X10^3/uL (150.0-450.0); RED BLOOD COUNT 2.92 X10^6/uL (3.5-5.4); RED CELL DISTRIBUTION WIDTH 14.7 % (11.6-16.5); WHITE BLOOD COUNT 6.7 X10^3/uL (3.6-10.0)
[2017-02-11 05:36] LABS: ALANINE AMINOTRANSFERASE 42 Units/L (12-78); ALKALINE PHOSPHATASE 100 Units/L (46-116); ASPARTATE AMINO TRANSFERASE 57 Units/L (15-37); BLOOD UREA NITROGEN 21 mg/dL (7-18); CARBON DIOXIDE 25.9 mmol/L (21-32); CHLORIDE 106 mmol/L (98-107); COR CA(FOR HYPOALB) 9.8 mg/dL (8.5-10.1); CREATININE 0.93 mg/dL (0.55-1.02); SODIUM 140 mmol/L (136-145); TOTAL PROTEIN 6.6 g/dL (6.4-8.2); eGFR BLACK RACES > 60 (>60); eGFR NON BLACK RACES > 60 (>60)
[2017-02-11] MEDS: NORCO 5/325 MG TAB PO SCH ×2 (05:55→08:30)
[2017-02-11] MEDS: POTASSIUM CHLORIDE LIQ 20 MEQ UDC PO SCH (08:28)
[2017-02-11] MEDS: NexIUM PO SCH (08:29)
[2017-02-11] MEDS: ALBUMIN HUMAN 25%- 100ML 100 ML IV SCH (08:29)
--- NOTE | 2017-02-11 10:14 | PCM.PROG ---
Progress Note - Progress Note for Day of Date: 02/10/17 - Subjective Subjective: WAS ADMITTED FOR CHF AND PITTING EDEMA. SHE IS NOTED ALERT AND ORIENTED, LYING IN BED ON MORNING ROUNDS. TODAY, SHE IS NOTED WITH COMPLAINTS OF GENERALIZED WEAKNESS AND SHORTNESS OF BREATH. ON EXAMINATION, LUNGS ARE NOTED WITH WHEEZING BILATERALLY ON AUSCULTATION. ABDOMEN IS SOFT, ROUND, AND NON-TENDER WITH BOWEL SOUNDS NOTED NORMAL IN ALL QUADRANTS. EDEMA TO BILATERAL LOWER EXTREMITIES APPEARS TO HAVE RETURNED TO PATIENT'S BASELINE. HER VITAL SIGNS THIS MORNING ARE 987.6-74-18-93%-125/58. CBC, CMP, AND CHEST XRAY WERE OBTAINED. ABNORMAL VITAL SIGNS INCLUDE THE FOLLOWING: RBC 3.21, HGB 9.0, HCT 27.2, ALBUMIN 2.8. CHEST XRAY REPORTED STABLE INTERSTITIAL PROMINENCE OF THE LUNGS WITHOUT FOCAL CONSOLIDATION OR PLEURAL EFFUSION. THERE IS NO SIGNIFICANT CHANGE COMPARED WIT H3 DAYS EARLIER. WE PLAN TO CONTINUE WITH CURRENT PLAN OF CARE, RECHECK AM LABS, AND CONTINUE TO MONITOR PATIENT. - Past Medical Family Social History Past Med/Fam/Surg Hx: No changes since H&P Allergies: Allergies codeine Allergy (Verified 02/06/17 22:08) hydromorphone [From Dilaudid] Allergy (Verified 02/06/17 22:08) meperidine [From Demerol] Allergy (Verified 02/06/17 22:08) prednisone Allergy (Verified 02/06/17 22:08) - Review of Systems ROS: No change since H&P - Vital Signs and I&O's Vital Signs: Temperature 97.7 F Pulse Rate [Right Brachial] 78 Pulse Rate [Left Brachial] 76 Pulse Rate [Bilateral Radial] 75 Respiratory Rate 18 Blood Pressure [Left Arm] 147/64 Blood Pressure [Right Arm] 144/68 Blood Pressure 117/56 O2 Sat by Pulse Oximetry 97 Intake and Output: Intake & Output 02/08/17 02/09/17 02/10/17 02/11/17 11:59 11:59 11:59 11:59 Intake Total 1110 1072 1280 845 Output Total 2700 600 1300 1000 Balance -1590 472 -20 -155 - Physical Exam Oriented: Normal Eyes: Normal Ear: Normal Nose: Normal Throat: Normal Respiratory: Generalized, Wheezes Cardiovascular: Edema : Normal Auscultation: Bowel Sounds: Normal Palpation: Normal Tenderness: Normal Skin: Normal, Red (bilateral lower extremities ), Tender Musculoskeletal: Normal Psychiatric: Normal Mood Description: Calm Affect: Normal Speech Pattern: Clear, Appropriate - Laboratory and Diagnostics Result Diagrams: 02/11/17 03:50 02/11/17 03:50 Labs: Laboratory WBC 6.7 X10^3/uL (3.6-10.0) 02/11/17 03:50 RBC 2.92 X10^6/uL (3.5-5.4) L 02/11/17 03:50 Hgb 8.8 g/dL (12.0-16.0) L 02/11/17 03:50 Hct 26.5 % (36.0-47.0) L 02/11/17 03:50 MCV 90.8 fL (80.0-100.0) 02/11/17 03:50 MCH 30.2 pg (27.0-34.0) 02/11/17 03:50 MCHC 33.2 g/dL (33.0-35.0) 02/11/17 03:50 RDW 14.7 % (11.6-16.5) 02/11/17 03:50 Plt Count 346 X10^3/uL (150.0-450.0) 02/11/17 03:50 MPV 7.1 fL (7.4-11.0) L 02/11/17 03:50 Neut % 56.5 % (42.0-75.0) 02/11/17 03:50 Lymph % 30.7 % (21.0-51.0) 02/11/17 03:50 [place] % 9.0 % (0.0-13.0) 02/11/17 03:50 Eos % 3.1 % (0.9-2.9) H 02/11/17 03:50 Baso % 0.7 % (0.2-1.0) 02/11/17 03:50 Neut # 3.8 x10^3/uL (2.2-4.8) 02/11/17 03:50 Lymph # 2.1 X10^3/uL (1.3-2.9) 02/11/17 03:50 [place] # 0.6 x10^3/uL (0.3-0.8) 02/11/17 03:50 Eos # 0.2 x10^3/uL (0.0-0.2) 02/11/17 03:50 Baso # 0.0 X10^3/uL (0.0-0.1) 02/11/17 03:50 Absolute Nucleated RBC 0.0 /100WBC 02/11/17 03:50 Sodium 140 mmol/L (136-145) 02/11/17 03:50 Corrected Sodium TNP 02/11/17 03:50 Potassium 4.1 mmol/L (3.5-5.1) 02/11/17 03:50 Chloride 106 mmol/L (98-107) 02/11/17 03:50 Carbon Dioxide 25.9 mmol/L (21-32) 02/11/17 03:50 BUN 21 mg/dL (7-18) H 02/11/17 03:50 Creatinine 0.93 mg/dL (0.55-1.02) 02/11/17 03:50 Est GFR (MDRD) Af Amer > 60 (>60) 02/11/17 03:50 Est GFR (MDRD) Non-Af > 60 (>60) 02/11/17 03:50 Glucose 92 mg/dL (65-99) 02/11/17 03:50 Calcium 9.0 mg/dL (8.5-10.1) 02/11/17 03:50 Corrected Calcium 9.8 mg/dL (8.5-10.1) 02/11/17 03:50 Total Bilirubin 0.20 mg/dL (0.2-1.0) 02/11/17 03:50 AST 57 Units/L (15-37) H 02/11/17 03:50 ALT 42 Units/L (12-78) 02/11/17 03:50 Alkaline Phosphatase 100 Units/L (46-116) 02/11/17 03:50 B-Natriuretic Peptide 213 pg/mL (0-79) H 02/07/17 03:45 Total Protein 6.6 g/dL (6.4-8.2) 02/11/17 03:50 Albumin 3.0 g/dL (3.4-5.0) L 02/11/17 03:50 Globulin 3.6 g/dL (2.5-4.5) 02/11/17 03:50 Albumin/Globulin Ratio 0.8 Ratio (1.1-2.1) L 02/11/17 03:50 - Plan (1) CHF (congestive heart failure) Status: Acute Qualifiers: Congestive heart failure type: unspecified congestive heart failure type Congestive heart failure chronicity: unspecified congestive heart failure chronicity Qualified Code(s): I50.9 - Heart failure, unspecified Plan: COREG 25MG PO BID, LISINOPRIL 10MG PO BID, LASIX 40MG IV Q12H, SUPPLEMENTAL OXYGEN, CONTINUE TO MONITOR (2) Bilateral edema of lower extremity Status: Acute Plan: LASIX 40MG IV BID, OBTAIN BILATERAL VENOUS DOPPLER, CONTINUE TO MONITOR (3) Hypokalemia Status: Acute Plan: POTASSIUM ELIXIR 10MEQ PO DAILY, CONTINUE TO MONITOR (4) Insomnia Status: Acute Qualifiers: Insomnia type: adjustment Qualified Code(s): F51.02 - Adjustment insomnia Plan: KLONOPIN 1MG PO HS, CONTINUE TO MONITOR (5) GERD (gastroesophageal reflux disease) Status: Chronic Qualifiers: Esophagitis presence: esophagitis presence not specified Plan: NEXIUM 40MG PO DAILY, CONTINUE TO MONITOR
[2017-02-11 12:04] VITALS: BP 142/63
== END 2017-02-11 13:30 | disposition home or self-care (01) | DRG 293 ==
LOC: OBS 17:11 → OBSVTOIN 17:11 → MED/SURG 19:34
PROVIDERS: ADMIT Internal Medicine; ATTEND Internal Medicine
DX: I50.9 Heart failure, unspecified (principal); R60.0 Localized edema; R06.02 Shortness of breath; E78.2 Mixed hyperlipidemia; G89.4 Chronic pain syndrome; I10 Essential (primary) hypertension; I25.10 Atherosclerotic heart disease of native coronary artery without angina pectoris; K21.9 Gastro-esophageal reflux disease without esophagitis; M51.16 Intervertebral disc disorders with radiculopathy, lumbar region; E87.6 Hypokalemia; F51.02 Adjustment insomnia; R53.1 Weakness
CPT/HCPCS: 36415; 71010; 80053; 83880; 85025; 93005; 93970; 94760; 99231; A4216; A4222; P9047; J1940

== ENCOUNTER 2017-03-24 15:32 | Inpatient (IN) | payer OTHER, MEDICAID ==
[2017-03-24 16:51] LABS: BASOPHILS # (AUTO) 0.1 X10^3/uL (0.0-0.1); BASOPHILS % (AUTO) 1.1 % (0.2-1.0); EOSINOPHILS # (AUTO) 0.1 x10^3/uL (0.0-0.2); EOSINOPHILS % (AUTO) 1.7 % (0.9-2.9); HEMATOCRIT 27.6 % (36.0-47.0); HEMOGLOBIN 9.1 g/dL (12.0-16.0); LYMPHOCYTES # (AUTO) 1.6 X10^3/uL (1.3-2.9); LYMPHOCYTES % (AUTO) 18.6 % (21.0-51.0); MEAN CORPUSCULAR HGB CONC 33.1 g/dL (33.0-35.0); MEAN CORPUSCULAR VOLUME 81.8 fL (80.0-100.0); MEAN PLATELET VOLUME 6.9 fL (7.4-11.0); MONOCYTES # (AUTO) 0.7 x10^3/uL (0.3-0.8); MONOCYTES % (AUTO) 7.9 % (0.0-13.0); NEUTROPHILS # (AUTO) 6.2 x10^3/uL (2.2-4.8); NEUTROPHILS % (AUTO) 70.7 % (42.0-75.0); PLATELET COUNT 319 X10^3/uL (150.0-450.0); RED BLOOD COUNT 3.38 X10^6/uL (3.5-5.4); RED CELL DISTRIBUTION WIDTH 16.2 % (11.6-16.5); WHITE BLOOD COUNT 8.8 X10^3/uL (3.6-10.0)
[2017-03-24 17:03] LABS: ALBUMIN 2.9 g/dL (3.4-5.0); CALCIUM 8.6 mg/dL (8.5-10.1); CARBON DIOXIDE 24.6 mmol/L (21-32); COR CA(FOR HYPOALB) 9.5 mg/dL (8.5-10.1); CREATININE 1.68 mg/dL (0.55-1.02); TOTAL PROTEIN 6.9 g/dL (6.4-8.2)
[2017-03-24 17:11] LABS: B-TYPE NATRIURETIC PEPTIDE 96.1 pg/mL (0-79)
[2017-03-24] MEDS: LASIX IVP SCH ×2 (17:17→21:03)
[2017-03-24] MEDS: NS 1000 ML 1,000 ML IV SCH (17:17)
--- NOTE | 2017-03-24 18:13 | RAD ---
Open Examination: AP chest History: CHF, COPD and hypertension Comparison reference: 02/10/2017 Findings: Continued normal heart size with tortuous aorta. The interstitial pulmonary pattern it alphonse ins diffusely and bilaterally increased although slight improvement is noted since prior study. There is no evidence for consolidation, pneumothorax or pleural fluid. Impression: Persistent interstitial prominence with slight interval improvement. The findings are con sistent with improving pulmonary vascular congestion although some element of underlying chronic susan bronchial thickening may be present. Reported By:
[2017-03-24 18:29] VITALS: BMI 26.7
--- NOTE | 2017-03-24 19:14 | DR.UPDATE ---
H&P Update History and Physical Update: WAS SEEN IN THE OFFICE TODAY. A H&P WAS COMPLETED PRIOR TO ADMISSION. PATIENT HAS BEEN SEEN AND EXAMINED WITH NO CHANGES NOTED TO H&P. Changes noted: NO Yes with the following:
[2017-03-25] MEDS: NORCO 5/325 MG TAB PO PRN ×4 (00:34→22:15)
[2017-03-25 05:26] LABS: BASOPHILS % (AUTO) 0.4 % (0.2-1.0); EOSINOPHILS # (AUTO) 0.2 x10^3/uL (0.0-0.2); EOSINOPHILS % (AUTO) 1.8 % (0.9-2.9); HEMATOCRIT 24.2 % (36.0-47.0); HEMOGLOBIN 8.1 g/dL (12.0-16.0); LYMPHOCYTES # (AUTO) 1.6 X10^3/uL (1.3-2.9); LYMPHOCYTES % (AUTO) 19.4 % (21.0-51.0); MEAN CORPUSCULAR HEMOGLOBIN 27.3 pg (27.0-34.0); MEAN CORPUSCULAR HGB CONC 33.4 g/dL (33.0-35.0); MEAN CORPUSCULAR VOLUME 81.9 fL (80.0-100.0); MONOCYTES # (AUTO) 0.7 x10^3/uL (0.3-0.8); MONOCYTES % (AUTO) 8.8 % (0.0-13.0); NEUTROPHILS # (AUTO) 5.8 x10^3/uL (2.2-4.8); NEUTROPHILS % (AUTO) 69.6 % (42.0-75.0); PLATELET COUNT 275 X10^3/uL (150.0-450.0); RED BLOOD COUNT 2.96 X10^6/uL (3.5-5.4); RED CELL DISTRIBUTION WIDTH 15.9 % (11.6-16.5); WHITE BLOOD COUNT 8.4 X10^3/uL (3.6-10.0)
[2017-03-25 05:34] LABS: ALANINE AMINOTRANSFERASE 15 Units/L (12-78); ALBUMIN 2.3 g/dL (3.4-5.0); ALKALINE PHOSPHATASE 150 Units/L (46-116); ASPARTATE AMINO TRANSFERASE 20 Units/L (15-37); BLOOD UREA NITROGEN 29 mg/dL (7-18); CALCIUM 8.1 mg/dL (8.5-10.1); CARBON DIOXIDE 26.4 mmol/L (21-32); CHLORIDE 103 mmol/L (98-107); COR CA(FOR HYPOALB) 9.5 mg/dL (8.5-10.1); SODIUM 139 mmol/L (136-145); TOTAL PROTEIN 5.8 g/dL (6.4-8.2); eGFR BLACK RACES 47 (>60); eGFR NON BLACK RACES 39 (>60)
--- NOTE | 2017-03-25 06:18 | RAD ---
Examination: Portable AP chest History: CHF Comparison reference: 03/24/2017 Findings: Continued upper normal heart size with improving central vascular congestion. The interstit ial prominence has likewise improved. There is no evidence for pulmonary edema, consolidation or larg e pleural effusion. Impression: Slight interval improvement; no new abnormality demonstrated. Reported By:
[2017-03-25] MEDS: NS 1000 ML 1,000 ML IV SCH ×3 (06:37→17:36)
[2017-03-25] MEDS: LASIX IVP SCH ×2 (08:12→20:48)
[2017-03-25] MEDS ORDERED: LISINOPRIL 10 MG PO SCH (09:30)
[2017-03-25] MEDS ORDERED: PATIENT'S HOME MEDICATION (Esomeprazole Magnesium [Nexium 40mg Cap] 40 MG) PO SCH (09:30)
[2017-03-25] MEDS ORDERED: CARVEDILOL 25 MG PO SCH (09:30)
[2017-03-25] MEDS ORDERED: PATIENT'S HOME MEDICATION (Clopidogrel Bisulfate [Plavix] 75 MG) PO SCH (09:30)
[2017-03-25] MEDS: NEURONTIN CAP 300 MG PO SCH ×4 (10:37→21:10)
[2017-03-25] MEDS: COLACE CAP 100 MG PO SCH (10:37)
[2017-03-25] MEDS: POTASSIUM CHLORIDE LIQ 20 MEQ UDC PO SCH (10:37)
[2017-03-25] MEDS: SINGULAIR TAB 10 MG PO SCH (10:46)
[2017-03-25] MEDS: CRESTOR TAB 10 MG PO SCH (20:47)
[2017-03-25] MEDS: COREG TAB 25 MG PO SCH ×2 (20:48→21:10)
[2017-03-25] MEDS: KLONOPIN TAB 1 MG PO SCH (20:50)
[2017-03-25] MEDS ORDERED: PATIENT'S HOME MEDICATION (Rosuvastatin Calcium [Crestor] 40 MG) PO SCH (21:00)
[2017-03-25] MEDS: DULCOLAX TAB EC 5 MG PO SCH (21:09)
[2017-03-25] MEDS: ZESTRIL TAB 10 MG PO SCH (21:10)
[2017-03-26 05:18] LABS: BASOPHILS % (AUTO) 0.6 % (0.2-1.0); EOSINOPHILS # (AUTO) 0.1 x10^3/uL (0.0-0.2); EOSINOPHILS % (AUTO) 1.8 % (0.9-2.9); HEMATOCRIT 24.5 % (36.0-47.0); HEMOGLOBIN 8.3 g/dL (12.0-16.0); LYMPHOCYTES # (AUTO) 1.9 X10^3/uL (1.3-2.9); LYMPHOCYTES % (AUTO) 26.7 % (21.0-51.0); MEAN CORPUSCULAR HEMOGLOBIN 27.9 pg (27.0-34.0); MEAN CORPUSCULAR HGB CONC 33.8 g/dL (33.0-35.0); MEAN CORPUSCULAR VOLUME 82.4 fL (80.0-100.0); MEAN PLATELET VOLUME 7.1 fL (7.4-11.0); MONOCYTES # (AUTO) 0.7 x10^3/uL (0.3-0.8); MONOCYTES % (AUTO) 9.3 % (0.0-13.0); NEUTROPHILS # (AUTO) 4.3 x10^3/uL (2.2-4.8); NEUTROPHILS % (AUTO) 61.6 % (42.0-75.0); PLATELET COUNT 287 X10^3/uL (150.0-450.0); RED BLOOD COUNT 2.98 X10^6/uL (3.5-5.4); RED CELL DISTRIBUTION WIDTH 15.8 % (11.6-16.5)
[2017-03-26 05:25] LABS: ALANINE AMINOTRANSFERASE 12 Units/L (12-78); ALBUMIN 2.3 g/dL (3.4-5.0); ALKALINE PHOSPHATASE 150 Units/L (46-116); ASPARTATE AMINO TRANSFERASE 14 Units/L (15-37); BLOOD UREA NITROGEN 31 mg/dL (7-18); CALCIUM 7.9 mg/dL (8.5-10.1); CARBON DIOXIDE 29.4 mmol/L (21-32); CHLORIDE 104 mmol/L (98-107); COR CA(FOR HYPOALB) 9.3 mg/dL (8.5-10.1); CREATININE 1.21 mg/dL (0.55-1.02); SODIUM 140 mmol/L (136-145); TOTAL PROTEIN 5.9 g/dL (6.4-8.2); eGFR BLACK RACES 55 (>60); eGFR NON BLACK RACES 46 (>60)
[2017-03-26] MEDS: NEURONTIN CAP 300 MG PO SCH ×3 (05:33→21:36)
--- NOTE | 2017-03-26 07:27 | RAD ---
Examination: Portable AP chest History: CHF, COPD and hypertension Comparison reference: 03/25/2017 Findings: Stable and normal heart size and position. Arteriosclerotic aorta. Mild central vascular co ngestion is unchanged. Minimal fibrosis or subsegmental atelectasis right medial base. No evidence fo r large pleural effusion or pneumothorax. Impression: No significant change since 1 day prior. Reported By:
[2017-03-26] MEDS: ALBUMIN HUMAN 25%- 100ML 100 ML IV SCH ×2 (09:13→09:14)
[2017-03-26] MEDS: LASIX IVP SCH ×2 (09:15→21:37)
[2017-03-26] MEDS: NexIUM PO SCH (09:15)
[2017-03-26] MEDS: COREG TAB 25 MG PO SCH ×2 (09:17→21:37)
[2017-03-26] MEDS: SINGULAIR TAB 10 MG PO SCH (09:17)
[2017-03-26] MEDS: COLACE CAP 100 MG PO SCH (09:17)
[2017-03-26] MEDS: ZESTRIL TAB 10 MG PO SCH ×2 (09:17→21:37)
[2017-03-26] MEDS: PLAVIX PO SCH (09:17)
[2017-03-26] MEDS: POTASSIUM CHLORIDE LIQ 20 MEQ UDC PO SCH (09:18)
[2017-03-26] MEDS: NORCO 5/325 MG TAB PO PRN ×2 (09:24→19:43)
--- NOTE | 2017-03-26 14:38 | PCM.PROG ---
Progress Note - Progress Note for Day of Date: 03/25/17 - Subjective Subjective: WAS ADMITTED FOR CONGESTIVE HEART FAILURE. TODAY, SHE IS ALERT AND ORIENTED, LYING IN BED ON MORNING ROUNDS. SHE CONTINUES WITH COMPLAINTS OF SHORTNESS OF BREATH. ON EXAMINATION, LUNG SOUNDS ARE DIMINISHED. ABDOMEN IS ROUND, SOFT, AND NON-TENDER WITH NORMAL BOWEL SOUNDS NOTED IN ALL QUADRANTS. BILATERAL LOWER EXTREMITIES ARE NOTED WITH 1+ PITTING EDEMA. SHE IS NOTED TO BE UTILIZING OXYGEN VIA NASAL CANNULA AT 2L/MIN AT THIS TIME. HER VITAL SIGNS THIS MORNING ARE 97.8-74-18-95%-120/54. ABNORMAL LAB VALUES INCLUDE THE FOLLOWING: RBC 2.96, HGB 8.1, HCT 24.2, BUN 29, CREATININE 1.40, GLUCOSE 102 , CALCIUM 8.1, ALK PHOS 150, TOTAL PROTEIN 5.8, ALBUMIN 2.3. A CHEST XRAY WAS OBTAINED TODAY AND REPORTED SLIGHT INTERVAL IMPROVEMENT, NO NEW ABNORMALITY DEMONSTRATED. PATIENT REPORTS BEING UNSTEADY ON HER FEET WHEN SHE AMBULATES. WE WILL ORDER FOR PHYSICAL THERAPY TO WORK WITH PATIENT. OTHERWISE, WE WILL CONTINUE WITH CURRENT PLAN OF CARE TODAY. WE PLAN TO FOLLOW UP WITH AM LABS AND CHEST XRAY AND CONTINUE TO MONITOR PATIENT. - Past Medical Family Social History Past Med/Fam/Surg Hx: No changes since H&P Allergies: Allergies codeine Allergy (Verified 02/06/17 22:08) hydromorphone [From Dilaudid] Allergy (Verified 02/06/17 22:08) influenza virus vaccine qs 2735-1365 (36 mos, up) [From Single Use EZ Flu] Allergy (Verified 03/24/17 18:04) meperidine [From Demerol] Allergy (Verified 02/06/17 22:08) prednisone Allergy (Verified 02/06/17 22:08) - Review of Systems ROS: No change since H&P - Vital Signs and I&O's Vital Signs: Temperature 97.4 F Pulse Rate [Right Radial] 63 Respiratory Rate 18 Blood Pressure [Left Arm] 98/54 Blood Pressure [Right Arm] 105/51 Blood Pressure 142/63 O2 Sat by Pulse Oximetry 100 Intake and Output: Intake & Output 03/24/17 03/25/17 03/26/17 03/27/17 11:59 11:59 11:59 11:59 Intake Total 640 660 Output Total 3500 3300 Balance -2860 -2640 - Physical Exam Oriented: Normal Eyes: Normal Ear: Normal Nose: Normal Throat: Normal Respiratory: Generalized, Diminished Cardiovascular: Normal : Normal Auscultation: Bowel Sounds: Normal Palpation: Normal Tenderness: Normal Skin: Normal Musculoskeletal: Right, Left, Leg, Instability Psychiatric: Normal Mood Description: Calm Affect: Normal Speech Pattern: Clear, Appropriate - Laboratory and Diagnostics Result Diagrams: 03/26/17 04:20 03/26/17 04:20 Labs: Laboratory WBC 7.0 X10^3/uL (3.6-10.0) 03/26/17 04:20 RBC 2.98 X10^6/uL (3.5-5.4) L 03/26/17 04:20 Hgb 8.3 g/dL (12.0-16.0) L 03/26/17 04:20 Hct 24.5 % (36.0-47.0) L 03/26/17 04:20 MCV 82.4 fL (80.0-100.0) 03/26/17 04:20 MCH 27.9 pg (27.0-34.0) 03/26/17 04:20 MCHC 33.8 g/dL (33.0-35.0) 03/26/17 04:20 RDW 15.8 % (11.6-16.5) 03/26/17 04:20 Plt Count 287 X10^3/uL (150.0-450.0) 03/26/17 04:20 MPV 7.1 fL (7.4-11.0) L 03/26/17 04:20 Neut % 61.6 % (42.0-75.0) 03/26/17 04:20 Lymph % 26.7 % (21.0-51.0) 03/26/17 04:20 [place] % 9.3 % (0.0-13.0) 03/26/17 04:20 Eos % 1.8 % (0.9-2.9) 03/26/17 04:20 Baso % 0.6 % (0.2-1.0) 03/26/17 04:20 Neut # 4.3 x10^3/uL (2.2-4.8) 03/26/17 04:20 Lymph # 1.9 X10^3/uL (1.3-2.9) 03/26/17 04:20 [place] # 0.7 x10^3/uL (0.3-0.8) 03/26/17 04:20 Eos # 0.1 x10^3/uL (0.0-0.2) 03/26/17 04:20 Baso # 0.0 X10^3/uL (0.0-0.1) 03/26/17 04:20 Absolute Nucleated RBC 0.0 /100WBC 03/26/17 04:20 Sodium 140 mmol/L (136-145) 03/26/17 04:20 Corrected Sodium TNP 03/26/17 04:20 Potassium 3.7 mmol/L (3.5-5.1) 03/26/17 04:20 Chloride 104 mmol/L (98-107) 03/26/17 04:20 Carbon Dioxide 29.4 mmol/L (21-32) 03/26/17 04:20 BUN 31 mg/dL (7-18) H 03/26/17 04:20 Creatinine 1.21 mg/dL (0.55-1.02) H 03/26/17 04:20 Est GFR (MDRD) Af Amer 55 (>60) L 03/26/17 04:20 Est GFR (MDRD) Non-Af 46 (>60) L 03/26/17 04:20 Glucose 106 mg/dL (65-99) H 03/26/17 04:20 Calcium 7.9 mg/dL (8.5-10.1) L 03/26/17 04:20 Corrected Calcium 9.3 mg/dL (8.5-10.1) 03/26/17 04:20 Total Bilirubin 0.10 mg/dL (0.2-1.0) L 03/26/17 04:20 AST 14 Units/L (15-37) L 03/26/17 04:20 ALT 12 Units/L (12-78) 03/26/17 04:20 Alkaline Phosphatase 150 Units/L (46-116) H 03/26/17 04:20 B-Natriuretic Peptide 96.1 pg/mL (0-79) H 03/24/17 16:44 Total Protein 5.9 g/dL (6.4-8.2) L 03/26/17 04:20 Albumin 2.3 g/dL (3.4-5.0) L 03/26/17 04:20 Globulin 3.6 g/dL (2.5-4.5) 03/26/17 04:20 Albumin/Globulin Ratio 0.6 Ratio (1.1-2.1) L 03/26/17 04:20 - Plan (1) CHF (congestive heart failure) Status: Acute Qualifiers: Congestive heart failure type: unspecified congestive heart failure type Congestive heart failure chronicity: unspecified congestive heart failure chronicity Qualified Code(s): I50.9 - Heart failure, unspecified Plan: CONTINUE LASIX 40MG IV DAILY, CONTINUE COREG 25MG PO BID, CONTINUE LISINOPRIL 10MG PO BID, CONTINUE TO MONITOR
[2017-03-26] MEDS: CRESTOR TAB 10 MG PO SCH (21:36)
[2017-03-26] MEDS: DULCOLAX TAB EC 5 MG PO SCH (21:36)
[2017-03-26] MEDS: KLONOPIN TAB 1 MG PO SCH (21:36)
[2017-03-27] MEDS: NS 1000 ML 1,000 ML IV SCH (04:19)
[2017-03-27] MEDS: NEURONTIN CAP 300 MG PO SCH ×2 (05:46→14:18)
[2017-03-27 06:02] LABS: BASOPHILS # (AUTO) 0.1 X10^3/uL (0.0-0.1); BASOPHILS % (AUTO) 0.7 % (0.2-1.0); EOSINOPHILS # (AUTO) 0.2 x10^3/uL (0.0-0.2); EOSINOPHILS % (AUTO) 2.3 % (0.9-2.9); HEMATOCRIT 23.5 % (36.0-47.0); LYMPHOCYTES # (AUTO) 1.8 X10^3/uL (1.3-2.9); LYMPHOCYTES % (AUTO) 23.2 % (21.0-51.0); MEAN CORPUSCULAR HEMOGLOBIN 27.8 pg (27.0-34.0); MEAN CORPUSCULAR HGB CONC 33.8 g/dL (33.0-35.0); MEAN CORPUSCULAR VOLUME 82.4 fL (80.0-100.0); MONOCYTES # (AUTO) 0.7 x10^3/uL (0.3-0.8); MONOCYTES % (AUTO) 8.6 % (0.0-13.0); NEUTROPHILS # (AUTO) 5.1 x10^3/uL (2.2-4.8); NEUTROPHILS % (AUTO) 65.2 % (42.0-75.0); PLATELET COUNT 285 X10^3/uL (150.0-450.0); RED BLOOD COUNT 2.86 X10^6/uL (3.5-5.4); RED CELL DISTRIBUTION WIDTH 15.7 % (11.6-16.5); WHITE BLOOD COUNT 7.9 X10^3/uL (3.6-10.0)
[2017-03-27 06:13] LABS: ALANINE AMINOTRANSFERASE 12 Units/L (12-78); ALBUMIN 2.6 g/dL (3.4-5.0); ALKALINE PHOSPHATASE 148 Units/L (46-116); ASPARTATE AMINO TRANSFERASE 10 Units/L (15-37); BLOOD UREA NITROGEN 29 mg/dL (7-18); CALCIUM 8.1 mg/dL (8.5-10.1); CHLORIDE 105 mmol/L (98-107); COR CA(FOR HYPOALB) 9.2 mg/dL (8.5-10.1); CREATININE 1.09 mg/dL (0.55-1.02); SODIUM 141 mmol/L (136-145); TOTAL PROTEIN 6.1 g/dL (6.4-8.2); eGFR BLACK RACES > 60 (>60); eGFR NON BLACK RACES 52 (>60)
--- NOTE | 2017-03-27 06:43 | RAD ---
HISTORY: COPD Study: Chest AP portable Comparison: 03/26/2017 Findings: The patient is rotated to the left. The heart is mildly enlarged. The raad are normal. The aorta is c alcified. No definite congestive heart failure or acute alveolar infiltrates are identified. Subsegme ntal atelectasis is present at the right lung base. The remainder of the lung harry are clear. No pl eural effusions are identified. The bony thorax is unremarkable with the exception of a right shoulde r hemiarthroplasty. IMPRESSION: Mild cardiomegaly without congestive heart failure Subsegmental atelectasis right lung base, stable Reported By:
[2017-03-27] MEDS: NORCO 5/325 MG TAB PO PRN ×2 (07:33→14:19)
[2017-03-27] MEDS: COREG TAB 25 MG PO SCH ×2 (08:55→09:00)
[2017-03-27] MEDS: COLACE CAP 100 MG PO SCH (08:55)
[2017-03-27] MEDS: ALBUMIN HUMAN 25%- 100ML 100 ML IV SCH (08:55)
[2017-03-27] MEDS: NexIUM PO SCH (08:55)
[2017-03-27] MEDS: PLAVIX PO SCH (08:55)
[2017-03-27] MEDS: SINGULAIR TAB 10 MG PO SCH (08:56)
[2017-03-27] MEDS: LASIX IVP SCH (08:57)
[2017-03-27] MEDS: ZESTRIL TAB 10 MG PO SCH (09:00)
[2017-03-27] MEDS: POTASSIUM CHLORIDE LIQ 20 MEQ UDC PO SCH (09:55)
[2017-03-27 14:18] VITALS: BP 120/58
[2017-03-28] MEDS ORDERED: LEVSIN/MAALOX/LIDOC VISC ONE (18:03)
[2017-03-29] MEDS ORDERED: LEVSIN/MAALOX/LIDOC VISC ONE (18:00)
[2017-03-30] MEDS ORDERED: LEVSIN/MAALOX/LIDOC VISC ONE (19:04)
== END 2017-03-27 14:30 | DRG 293 ==
LOC: UNDOADMOB 15:32 → MED/SURG 15:32 → OBSVTOIN 16:25
PROVIDERS: ADMIT Internal Medicine; ATTEND Internal Medicine
DX: I50.9 Heart failure, unspecified (principal); I10 Essential (primary) hypertension; G62.89 Other specified polyneuropathies; K21.9 Gastro-esophageal reflux disease without esophagitis; D64.89 Other specified anemias; E83.51 Hypocalcemia
CPT/HCPCS: 36415; 71010; 80053; 83880; 85025; 94760; A4216; A4222; P9047; J1940

== ENCOUNTER → 2017-05-06 | Outpatient (CLI) | payer OTHER, MEDICAID ==
--- NOTE | 2017-05-06 15:38 | RAD ---
Examination: Right ribs, four views History: Pain no trauma Findings: No definite fracture, contour deformity or bone destruction identified in the right ribs. T here is pulmonary vascular congestion present with suspect perivascular edema and small pleural effus ions. Impression: No acute right rib abnormality identified. Pleural-parenchymal findings as described. Reported By:
== END | disposition home or self-care (01) ==
LOC: RAD 14:15
PROVIDERS: ATTEND Internal Medicine
DX: R07.81 Pleurodynia (principal)
CPT/HCPCS: 71111

== ENCOUNTER 2019-05-31 14:32 | Inpatient (IN) ==
[2019-05-31 15:09] LABS: BASOPHILS % (AUTO) 0.5 % (0.2-1.0); EOSINOPHILS # (AUTO) 0.2 x10^3/uL (0.0-0.2); EOSINOPHILS % (AUTO) 3.2 % (0.9-2.9); HEMATOCRIT 33.1 % (36.0-47.0); HEMOGLOBIN 10.7 g/dL (12.0-16.0); LYMPHOCYTES # (AUTO) 1.2 X10^3/uL (1.3-2.9); LYMPHOCYTES % (AUTO) 18.7 % (21.0-51.0); MEAN CORPUSCULAR HGB CONC 32.4 g/dL (33.0-35.0); MEAN CORPUSCULAR VOLUME 92.5 fL (80.0-100.0); MEAN PLATELET VOLUME 6.7 fL (7.4-11.0); MONOCYTES # (AUTO) 0.7 x10^3/uL (0.3-0.8); MONOCYTES % (AUTO) 10.7 % (0.0-13.0); NEUTROPHILS # (AUTO) 4.4 x10^3/uL (2.2-4.8); NEUTROPHILS % (AUTO) 66.9 % (42.0-75.0); PLATELET COUNT 236 X10^3/uL (150.0-450.0); RED BLOOD COUNT 3.58 X10^6/uL (3.5-5.4); RED CELL DISTRIBUTION WIDTH 14.9 % (11.6-16.5); WHITE BLOOD COUNT 6.6 X10^3/uL (3.6-10.0)
[2019-05-31 15:21] LABS: ALANINE AMINOTRANSFERASE 15 Units/L (12-78); ALBUMIN 2.5 g/dL (3.4-5.0); ALKALINE PHOSPHATASE 101 Units/L (46-116); ASPARTATE AMINO TRANSFERASE 13 Units/L (15-37); BLOOD UREA NITROGEN 19 mg/dL (7-18); CALCIUM 7.7 mg/dL (8.5-10.1); CARBON DIOXIDE 33.1 mmol/L (21-32); CHLORIDE 104 mmol/L (98-107); COR CA(FOR HYPOALB) 8.9 mg/dL (8.5-10.1); CREATININE 1.32 mg/dL (0.55-1.02); SODIUM 139 mmol/L (136-145); TOTAL PROTEIN 6.5 g/dL (6.4-8.2); eGFR NON BLACK RACES 41 (>60)
--- NOTE | 2019-05-31 15:22 | RAD ---
HISTORYPRODUCTIVE COUGHSTUDYCHEST, 1 VIEWCOMPARISONNovember 2016FINDINGSThe patient is rotated. The cardiac silhouette is enlarged. Bilateral hilar prominence is again noted similar to prior exam. Interstitial changes are again noted as well. Bibasilar atelectasis and/or patchy infiltrate cannot be excluded. Correlate clinically. Postoperative changes of the right humerus are again noted.IMPRESSIONCardiomegaly.Questionable bibasilar atelectasis and/or patchy infiltrate. Correlate clinically.Electronically signed by: BIANCA CESPEDES (May 31, 2019 15:21:01)
--- NOTE | 2019-05-31 15:40 | DR.SOBA ---
HPI Time Seen Time Seen by Provider: 05/31/19 15:16 Primary Care Physician Primary Care Physician: [place] HPI Comment HPI Comment: PATIENT IS 78YR OLD FEMALE [place] [facility] BECAUSE OF INCREASING SOB AND COUGH TIMES 3 DAYS. CURRENTLY ON OMNICEF. Complaints Chief Complaint Doctors Comments: INCREASING SOB TIMES 3 DAYS. Chief Complaint:: [facility] staff stated that pt has been short of breath for several days and has daisy having shortness of breath. pt has been on omnecef for 3 days but pt stated she has not been getting any better. Reviewed Nurses Notes Reviewed: Yes Source History Provided: Assisted Mode of Arrival Mode of Arrival: Ambulatory Timing Onset of Chief Complaint: 05/28/19 Context Onset:: At Rest PE Risk Factors:: None History of:: COPD and CHF Currently on:: Inhaled Bronchodilators Prehospital Care:: None Modifying Factors Worsens:: Exertion Improves:: Rest Associated Signs and Symptoms Associated Signs and Symptoms: Wheeze, Cough and Chest Pain If Chest Pain Quality: Pleuritic PMH PMH Past Medical History: Yes Past Medical History: Anemia, Arthritis, COPD, Coronary Artery Disease, Dyslipidemia, GERD, Hypertension and [place] Past Surgical History: Yes Surgical History: Hysterectomy and Ortho Surgery Family History History of Family Medical Conditions: Yes Family Medical History: Coronary Artery Disease and Hypertension Social History Does patient currently use any type of tobacco product: No Have you used tobacco products in the last 12 months: No Type of Tobacco Use: None Does any household member use tobacco: No Alcohol Use: None Do you use any recreational Drugs:: No Lives With: Other Lives Where: Assisted infectious screening In the last 2 months have you had wt loss of >10#?: NO Have you had fever, night sweats or hemotysis?: No Have you traveled outside the country in the last 6 months?: No Isolation: Standard ROS Review of Systems Constitutional: See HPI, Weakness and Fatigue; negative Fever Eyes: No Symptoms Reported and See HPI ENTM: See HPI and Nose Congestion Respiratoy: See HPI, Moist Cough, Short of Breath and Wheezing Cardiovascular: See HPI and Chest Pain Gastrointestinal/Abdominal: No Symptoms Reported and See HPI; negative Abdominal Pain, Diarrhea and Vomiting Genitourinary: No Symptoms Reported and See HPI Neurological: See HPI and Weakness; negative Headache and Dizziness Musculoskeletal: No Symptoms Reported and See HPI Integumentary: No Symptoms Reported, See HPI and Change in Color; negative Rash and Juandice Hematologic/Lymphatic: No Symptoms Reported and See HPI Endocrine: No Symptoms Reported and See HPI Psychiatric: No Symptoms Reported and See HPI All Other Systems: Reviewed and Negative PE Vital Signs Vitals: Temperature 98.2 F Pulse Rate [Left] 71 Pulse Rate 66 Respiratory Rate 18 Blood Pressure [Left Arm] 135/58 Blood Pressure 117/51 O2 Sat by Pulse Oximetry 96 General Limitations: No Limitations General Appearance: Alert and In No Apparent Distress Head Head Exam: Normal Inspection and Atraumatic Eyes Eye exam: Normal Appearance and PERRL; negative Scleral Icterus and Conjunctival Injection ENT ENT Exam: Normal Exam, Normal Oropharynx, Normal External Ear Exam and TM's Normal Bilaterally Neck Neck Exam: Normal Inspection and Trachea Midline; negative Tenderness and Lymphadenopathy Chest Chest Inspection: Normal Inspection and Symmetric Chest Wall Rise; negative Tenderness Respiratory Respiratory Exam: Normal Lung Sounds Bilat and Respiratory Distress; negative Accessory Muscle Use and Chest Wall Tenderness Respiratory Exam: Bilateral: Wheezing and Bilateral: Rhonchi and Lower: Wheezing and Lower: Rhonchi Cardiovascular Cardiovascular Exam: Regular Rate, Normal Rhythm and Normal Heart Sounds Abdominal Exam Abdominal Exam: Normal Inspection, Normal Bowel Sounds and Soft; negative Tenderness Extremities Extremities Exam: Normal Inspection Back Back Exam: Normal Inspection Neurologic Neurological Exam: Alert and Oriented X3; negative Motor Sensory Deficit Psychiatric Psychiatric Exam: Normal Affect and Normal Mood Skin Skin Exam: Warm, Dry, Intact and Normal Color MDM Differential Diagnosis Differential Diagnosis: Bronchitis, CHF, COPD, Dysrhythmia, Hypertensive Emergency, Hyponatremia, Mycardial Infarction, Pneumonia, Pneumothorax, Respiratory Insufficiency, Sinusitis and URI COURSE Treatment Treatment: SEE BAILEY. Education/Counseling Education/Counseling: Patient Educated On: Diagnosis ROR Labs Reviewed Laboratory Results Reviewed?: Yes Result Diagrams: 06/04/19 04:33 06/04/19 04:33 Laboratory: 05/31/19 17:47 Blood Blood Culture - Final WBC 6.6 X10^3/uL (3.6-10.0) 05/31/19 14:56 RBC 3.58 X10^6/uL (3.5-5.4) 05/31/19 14:56 Hgb 10.7 g/dL (12.0-16.0) L 05/31/19 14:56 Hct 33.1 % (36.0-47.0) L 05/31/19 14:56 MCV 92.5 fL (80.0-100.0) 05/31/19 14:56 MCH 30.0 pg (27.0-34.0) 05/31/19 14:56 MCHC 32.4 g/dL (33.0-35.0) L 05/31/19 14:56 RDW 14.9 % (11.6-16.5) 05/31/19 14:56 Plt Count 236 X10^3/uL (150.0-450.0) 05/31/19 14:56 MPV 6.7 fL (7.4-11.0) L 05/31/19 14:56 Neut % (Auto) 66.9 % (42.0-75.0) 05/31/19 14:56 Lymph % (Auto) 18.7 % (21.0-51.0) L 05/31/19 14:56 [place] % (Auto) 10.7 % (0.0-13.0) 05/31/19 14:56 Eos % (Auto) 3.2 % (0.9-2.9) H 05/31/19 14:56 Baso % (Auto) 0.5 % (0.2-1.0) 05/31/19 14:56 Neut # (Auto) 4.4 x10^3/uL (2.2-4.8) 05/31/19 14:56 Lymph # (Auto) 1.2 X10^3/uL (1.3-2.9) L 05/31/19 14:56 [place] # (Auto) 0.7 x10^3/uL (0.3-0.8) 05/31/19 14:56 Eos # (Auto) 0.2 x10^3/uL (0.0-0.2) 05/31/19 14:56 Baso # (Auto) 0.0 X10^3/uL (0.0-0.1) 05/31/19 14:56 Absolute Nucleated RBC 0.1 /100WBC 05/31/19 14:56 Sodium 139 mmol/L (136-145) 05/31/19 14:56 Corrected Sodium TNP 05/31/19 14:56 Potassium 4.9 mmol/L (3.5-5.1) 05/31/19 14:56 Chloride 104 mmol/L (98-107) 05/31/19 14:56 Carbon Dioxide 33.1 mmol/L (21-32) H 05/31/19 14:56 BUN 19 mg/dL (7-18) H 05/31/19 14:56 Creatinine 1.32 mg/dL (0.55-1.02) H 05/31/19 14:56 Est GFR (MDRD) Af Amer 50 (>60) L 05/31/19 14:56 Est GFR (MDRD) Non-Af 41 (>60) L 05/31/19 14:56 Glucose 109 mg/dL (65-99) H 05/31/19 14:56 Calcium 7.7 mg/dL (8.5-10.1) L 05/31/19 14:56 Corrected Calcium 8.9 mg/dL (8.5-10.1) 05/31/19 14:56 Total Bilirubin 0.20 mg/dL (0.2-1.0) 05/31/19 14:56 AST 13 Units/L (15-37) L 05/31/19 14:56 ALT 15 Units/L (12-78) 05/31/19 14:56 Alkaline Phosphatase 101 Units/L (46-116) 05/31/19 14:56 Creatine Kinase 61 Units/L (26-192) 05/31/19 14:56 CK-MB (CK-2) < 1.0 ng/mL (0-4.0) 05/31/19 14:56 CK/CKMB % Calc 1.6 % (<4) 05/31/19 14:56 Troponin I < 0.02 ng/mL (0-1.5) 05/31/19 14:56 Total Protein 6.5 g/dL (6.4-8.2) 05/31/19 14:56 Albumin 2.5 g/dL (3.4-5.0) L 05/31/19 14:56 Globulin 4.0 g/dL (2.5-4.5) 05/31/19 14:56 Albumin/Globulin Ratio 0.6 Ratio (1.1-2.1) L 05/31/19 14:56 XRAY XRAY Interpreted by: Radiologist and Self (AGREE WITH RADIOLOGIST.) XRAY Findings: REPORT DISCUSSED WITH PATIENT. EKG [place]: Normal Block: None Hypertrophy: None ST: Normal Opioid Opioid Risk Tool Age ( box if 16-45): No Total: 0 Total Score Risk Category: Low Risk Copyright: [facility] predicting aberrant behaviors Diagnosis Discharge Problem: Pneumonia, Hypoxia
[2019-05-31 15:59] LABS: CKMB % 1.6 % (<4); CREATINE KINASE 61 Units/L (26-192); CREATINE KINASE MB < 1.0 ng/mL (0-4.0); TROPONIN I < 0.02 ng/mL (0-1.5)
[2019-05-31] MEDS ORDERED: FORTAZ or TAZICEF VIAL INJ IM ONE (17:36)
[2019-05-31] MEDS ORDERED: FORTAZ or TAZICEF VIAL INJ ONE (18:09)
[2019-05-31] MEDS ORDERED: NS 1/2 1000 ML IV 1,000 ML IV ONE (18:10)
[2019-05-31] MEDS ORDERED: NS 100 ML IV + SPIKE MINIBAG* 100 ML IV ONE (18:10)
[2019-05-31 18:20] LABS: ABG BASE EXCESS 6.4 mmol/L (-2.0-2.0); ABG HCO3 33.1 mmol/L (22-26)
[2019-05-31] MEDS: LEVAQUIN PREMIX IV 750 MG 750 MG/150 ML BAG IV SCH (19:43)
[2019-05-31] MEDS: DUONEB 0.5 MG/3 MG (3 mL) NEB SCH (21:45)
[2019-05-31] MEDS: ROBITUSSIN DM PO SCH (21:59)
[2019-05-31] MEDS: NS 1/2 1000 ML IV 1,000 ML IV SCH (22:05)
[2019-06-01 00:55] VITALS: BMI 31.8
[2019-06-01] MEDS: FORTAZ or TAZICEF VIAL INJ 1 G in NS 100 ML IV + SPIKE MINIBAG* 100 ML IV SCH ×2 (05:25→17:36)
[2019-06-01 06:15] LABS: BASOPHILS % (AUTO) 0.5 % (0.2-1.0); EOSINOPHILS # (AUTO) 0.2 x10^3/uL (0.0-0.2); EOSINOPHILS % (AUTO) 3.1 % (0.9-2.9); HEMATOCRIT 30.7 % (36.0-47.0); HEMOGLOBIN 10.7 g/dL (12.0-16.0); LYMPHOCYTES % (AUTO) 17.5 % (21.0-51.0); MEAN CORPUSCULAR HEMOGLOBIN 37.1 pg (27.0-34.0); MEAN CORPUSCULAR HGB CONC 34.8 g/dL (33.0-35.0); MEAN CORPUSCULAR VOLUME 106.5 fL (80.0-100.0); MEAN PLATELET VOLUME 6.9 fL (7.4-11.0); MONOCYTES # (AUTO) 0.6 x10^3/uL (0.3-0.8); MONOCYTES % (AUTO) 10.8 % (0.0-13.0); NEUTROPHILS # (AUTO) 3.8 x10^3/uL (2.2-4.8); NEUTROPHILS % (AUTO) 68.1 % (42.0-75.0); PLATELET COUNT 245 X10^3/uL (150.0-450.0); RED BLOOD COUNT 2.88 X10^6/uL (3.5-5.4); RED CELL DISTRIBUTION WIDTH 14.7 % (11.6-16.5); WHITE BLOOD COUNT 5.5 X10^3/uL (3.6-10.0)
[2019-06-01 06:48] LABS: ALANINE AMINOTRANSFERASE 16 Units/L (12-78); ALBUMIN 2.4 g/dL (3.4-5.0); ALKALINE PHOSPHATASE 105 Units/L (46-116); ASPARTATE AMINO TRANSFERASE 13 Units/L (15-37); BLOOD UREA NITROGEN 18 mg/dL (7-18); CALCIUM 7.7 mg/dL (8.5-10.1); CARBON DIOXIDE 29.8 mmol/L (21-32); CHLORIDE 103 mmol/L (98-107); CREATININE 0.95 mg/dL (0.55-1.02); SODIUM 139 mmol/L (136-145); TOTAL PROTEIN 6.4 g/dL (6.4-8.2); eGFR NON BLACK RACES > 60 (>60)
[2019-06-01 07:32] LABS: PLATELET MORPHOLOGY COMMENT NORMAL (NORMAL)
--- NOTE | 2019-06-01 07:35 | RAD ---
HISTORYShortness of breathSTUDYCHEST, 1 [id number] is rotated to the right. The heart is enlarged. Bilateral hilar prominence is unchanged and likely vascular in origin. No congestive heart failure is identified. Hyperinflation is present. Interstitial lung changes are present and stable. No acute alveolar infiltrates or pleural effusions are identified. The bony thorax is unremarkable.IMPRESSIONContinued cardiomegaly without congestive heart failureHyperinflation with chronic appearing interstitial lung changes consistent with COPD in the appropriate clinical settingElectronically signed by: MARY ELLEN CORRAL (Jun 01, 2019 07:33:47)
[2019-06-01] MEDS: ROBITUSSIN DM PO SCH ×5 (07:48→20:01)
[2019-06-01] MEDS: LEVAQUIN PREMIX IV 750 MG 750 MG/150 ML BAG IV SCH ×2 (07:48→10:41)
[2019-06-01] MEDS: VSL#3 PO SCH ×2 (07:48→10:32)
[2019-06-01] MEDS ORDERED: TYLENOL 325 MG TAB PO PRN (07:51)
[2019-06-01] MEDS ORDERED: PHARMACY CONSULT LTC MEDICATIONS XX SCH (08:00)
[2019-06-01] MEDS ORDERED: ULTRAM PO PRN (08:15)
[2019-06-01] MEDS ORDERED: MIRALAX POWDER (1 DOSE 17 G) PO PRN (08:15)
[2019-06-01] MEDS: DUONEB 0.5 MG/3 MG (3 mL) NEB SCH ×5 (08:41→21:29)
[2019-06-01] MEDS ORDERED: LASIX PO SCH (09:00)
[2019-06-01] MEDS ORDERED: CYANOCOBALAMIN 1000 MCG PO SCH (09:00)
[2019-06-01] MEDS: XARELTO PO SCH ×2 (10:20→20:01)
[2019-06-01] MEDS ORDERED: NORVASC TAB 2.5 MG ONE (10:22)
[2019-06-01] MEDS: POTASSIUM CHLORIDE LIQ 20 MEQ UDC PO SCH (10:24)
[2019-06-01] MEDS: TAB-A-VITE PO SCH (10:25)
[2019-06-01] MEDS: PROzac PO SCH (10:25)
[2019-06-01] MEDS: NORVASC TAB 2.5 MG PO SCH (10:25)
[2019-06-01] MEDS: COREG TAB 12.5 MG PO SCH ×2 (10:26→20:01)
[2019-06-01] MEDS: CLARITIN PO SCH (10:26)
[2019-06-01] MEDS: COLACE CAP 100 MG PO SCH ×2 (10:26→20:01)
[2019-06-01] MEDS: SINGULAIR TAB 10 MG PO SCH (10:26)
[2019-06-01] MEDS: FOLIC ACID TAB 1 MG PO SCH (10:28)
[2019-06-01] MEDS: CELEBREX PO SCH (10:28)
[2019-06-01] MEDS: HEMOCYTE-PLUS PO SCH (10:30)
[2019-06-01] MEDS: FLONASE NASAL SPRAY ENOSTRIL SCH (10:31)
--- NOTE | 2019-06-01 10:54 | DR.H&P ---
H&P - History & Physical for Day of: H&P Date: 05/31/19 - Chief Complaint Chief Complaint: COUGH, SOB - History of Present Illness History of Present Illness: IS A 78 YEAR OLD PATIENT OF OURS. SHE IS A RESIDENT OF [facility]. SHE PRESENTED TO THE ER WITH COMPLAINTS OF SHORTNESS OF BREATH AND COUGH FOR THE PAST 4 DAYS. SHE HAS BEEN RECEIVING OMNICEF 300MG PO BID X 3 DAYS, BUT DENIES IMPROVEMENT IN SYMPTOMS. ON ARRIVAL, VITALS WERE 98.2-66-18-92%-117/51. LABS WERE OBTAINED. ABNORMAL LAB VALUES INCLUDE THE FOLLOWING: HGB 10.7, HCT 33.1, CARBON DIOXIDE 33.1, BUN 19, CREATININE 1.32, GLUCOSE 109, CALCIUM 7.7, AST 13, ALBUMIN 2.5. CARDIAC ENZYMES WITHIN NORMAL LIMITS. AN ABG WAS OBTAINED AND REVEALED: PH 7.380, PC02 56.0, P02 70.0, HC03 33.1, 02 SATURATION 93.0, BASE EXCESS 6.4. BLOOD CULTURES WERE OBTAINED. A CHEST XRAY WAS OBTAINED AND REVEALED: Cardiomegaly. Questionable bibasilar atelectasis and/or patchy infiltrate. Correlate clinically. EKG REVEALED: SINUS RHYTHM WITH HR 76. SHE WAS ADMITTED FOR FURTHER EVALUATION AND TREATMENT OF PNEUMONIA AND HYPOXIA. SHE WAS STARTED ON 1/2NS AT 75ML/HR, IV FORTAZ, IV LEVAQUIN, RESPIRATORY TREATMENT, SUPPLEMENTAL OXYGEN, AND HOME MEDICATIONS WERE RESUMED. WE PLAN TO FOLLOW UP WITH AM LABS AND CHEST XRAY AND CONTINUE TO [facility]. - Past Medical History Past Medical History: NE, Coronary Artery Disease, Hypertension, Dyslipidemia, Anemia, COPD, GERD, Arthritis Additional Medical History: Cataracts, Sinusitis, Bronchitis, Pneumonia, Gallbladder disease, Back Pain, Previous Blood Transfusion, Skin Cancer Forehead - Past Surgical History Surgical History: Appendectomy, Ortho Surgery Additional Surgical History: Skin Cancer Removed, Bilateral Hip Surgery, Right Wrist Surgery, Right Shoulder Surgery - Family History Family Medical History: Cancer, Coronary Artery Disease, Hypertension - Social History Does patient currently use any type of tobacco product: No Have you used tobacco products in the last 12 months: No Type of Tobacco Use: None Does any household member use tobacco: No Alcohol Use: None Drug Use: None Prescription drug monitoring program results: PDMP was not reviewed - Medications Home Medications: codeine Allergy (Verified 02/06/17 22:08) hydromorphone [From Dilaudid] Allergy (Verified 02/06/17 22:08) influenza virus vaccine qs [id number] (36 mos, up) [From Single Use EZ Flu] Allergy (Verified 03/24/17 18:04) meperidine [From Demerol] Allergy (Verified 02/06/17 22:08) prednisone Allergy (Verified 02/06/17 22:08) CONTINUE taking the following medications acetaminophen [Tylenol] 650 mg PO Q4HR PRN 06/01/19 [History] calcium carbonate-vitamin D3 1 cap PO BID 06/01/19 [History] dextromethorphan-guaifenesin [Robitussin Cough-Chest Venkata DM] 1 ml PO Q6HR PRN 06/01/19 [History] ferrous fumarate [Ferrocite] 324 mg PO DAILY 06/01/19 [History] furosemide [Lasix] 20 mg PO Q OTHER DAY 06/01/19 [History] multivitamin 1 cap PO DAILY 06/01/19 [History] polyethylene glycol 3350 [Miralax] 17 g PO DAILY PRN 06/01/19 [History] rivaroxaban [Xarelto] 10 mg PO QHS 06/01/19 [History] - Review of Systems Constitutional: Weakness Eyes: No Symptoms Reported ENT: No Symptoms Reported Respiratory: See HPI, Cough, Shortness of Breath, SOB with Excertion Cardiovascular: No Symptoms Reported Gastrointestinal: No Symptoms Reported Genitourinary: No Symptoms Reported Musculoskeletal: No Symptoms Reported Skin: No Symptoms Reported Neurological: Weakness - Physical Exam Vital Signs: Temperature 98.0 F Pulse Rate [Left] 72 Pulse Rate 90 Respiratory Rate 18 Blood Pressure [Left Arm] 131/58 Blood Pressure 150/76 O2 Sat by Pulse Oximetry 96 Oriented: Normal Eyes: Normal Ear: Normal Nose: Normal Throat: Normal Respiratory: Wheezes Throughout Cardiovascular: Normal. negative: S3, S4, Murmur : Normal Auscultation: Bowel Sounds: Normal Palpation: Normal Tenderness: Normal Skin: Normal Musculoskeletal: Normal Psychiatric: Normal Mood Description: Calm Affect: Normal Speech Pattern: Clear - Assessment/Plan (1) Pneumonia Qualifiers: Pneumonia type: due to unspecified organism Laterality: bilateral Lung location: lower lobe of lung Qualified Code(s): J18.9 - Pneumonia, unspecified organism Status: Acute Plan: IV FORTAZ, IV LEVAQUIN, RESPIRATORY TX, SUPPLEMENTAL OXYGEN, CONTINUE TO MONITOR (2) Hypoxia Status: Acute - Allergies Allergies/Adverse Reactions: Allergies Allergy/AdvReac Type Severity Reaction Status Date / Time codeine Allergy Verified 02/06/17 22:08 hydromorphone [From Dilaudid] Allergy Verified 02/06/17 22:08 influenza virus vaccine qs Allergy Verified 03/24/17 18:04 [id number] (36 mos, up) [From Single Use EZ Flu] meperidine [From Demerol] Allergy Verified 02/06/17 22:08 prednisone Allergy Verified 02/06/17 22:08
[2019-06-01] MEDS ORDERED: NS 1/2 1000 ML IV 1,000 ML IV ONE (13:33)
[2019-06-01] MEDS: NS 1/2 1000 ML IV 1,000 ML IV SCH ×2 (14:03→23:21)
[2019-06-01] MEDS: NEURONTIN CAP 300 MG PO SCH ×2 (14:03→21:05)
[2019-06-01] MEDS: NORCO 5/325 MG TAB PO SCH ×2 (14:04→21:05)
[2019-06-01] MEDS: CRESTOR TAB 10 MG PO SCH (20:00)
[2019-06-01] MEDS: KLONOPIN TAB 1 MG PO SCH (20:01)
[2019-06-02] MEDS ORDERED: NS 1/2 1000 ML IV 1,000 ML IV ONE ×2 (04:24→20:49)
[2019-06-02] MEDS: FORTAZ or TAZICEF VIAL INJ 1 G in NS 100 ML IV + SPIKE MINIBAG* 100 ML IV SCH ×2 (05:28→17:06)
[2019-06-02] MEDS: NS 1/2 1000 ML IV 1,000 ML IV SCH ×3 (05:28→20:54)
[2019-06-02 06:11] LABS: BASOPHILS % (AUTO) 0.6 % (0.2-1.0); EOSINOPHILS # (AUTO) 0.2 x10^3/uL (0.0-0.2); EOSINOPHILS % (AUTO) 4.2 % (0.9-2.9); HEMATOCRIT 32.1 % (36.0-47.0); LYMPHOCYTES # (AUTO) 1.5 X10^3/uL (1.3-2.9); LYMPHOCYTES % (AUTO) 29.5 % (21.0-51.0); MEAN CORPUSCULAR HEMOGLOBIN 35.1 pg (27.0-34.0); MEAN CORPUSCULAR HGB CONC 34.2 g/dL (33.0-35.0); MEAN CORPUSCULAR VOLUME 102.8 fL (80.0-100.0); MEAN PLATELET VOLUME 6.9 fL (7.4-11.0); MONOCYTES # (AUTO) 0.7 x10^3/uL (0.3-0.8); MONOCYTES % (AUTO) 12.7 % (0.0-13.0); NEUTROPHILS # (AUTO) 2.8 x10^3/uL (2.2-4.8); PLATELET COUNT 260 X10^3/uL (150.0-450.0); RED BLOOD COUNT 3.12 X10^6/uL (3.5-5.4); RED CELL DISTRIBUTION WIDTH 14.4 % (11.6-16.5); WHITE BLOOD COUNT 5.2 X10^3/uL (3.6-10.0)
[2019-06-02 06:25] LABS: ALANINE AMINOTRANSFERASE 13 Units/L (12-78); ALBUMIN 2.4 g/dL (3.4-5.0); ALKALINE PHOSPHATASE 93 Units/L (46-116); ASPARTATE AMINO TRANSFERASE 11 Units/L (15-37); BLOOD UREA NITROGEN 11 mg/dL (7-18); CALCIUM 7.5 mg/dL (8.5-10.1); CARBON DIOXIDE 31.3 mmol/L (21-32); CHLORIDE 104 mmol/L (98-107); COR CA(FOR HYPOALB) 8.8 mg/dL (8.5-10.1); COR NA(FOR HYPERGLY) 140 mmol/L (136-145); CREATININE 0.86 mg/dL (0.55-1.02); SODIUM 140 mmol/L (136-145); TOTAL PROTEIN 6.4 g/dL (6.4-8.2); eGFR NON BLACK RACES > 60 (>60)
--- NOTE | 2019-06-02 06:35 | RAD ---
HISTORYShortness of breathSTUDYCHEST, 1 [id number] remains rotated to the right. The heart remains enlarged. Bilateral hilar prominence is unchanged and likely vascular in origin. No congestive heart failure is identified. Hyperinflation is present. Stable interstitial lung changes are again identified. No acute alveolar infiltrates or pleural effusions are identified. Bony thorax is unremarkable.IMPRESSIONCardiomegaly without congestive heart failureHyperinflation with chronic appearing interstitial lung changes consistent with COPD in the appropriate clinical settingElectronically signed by: MARY ELLEN CORRAL (Jun 02, 2019 06:34:10)
[2019-06-02] MEDS ORDERED: NORVASC TAB 2.5 MG ONE (08:30)
[2019-06-02] MEDS: DUONEB 0.5 MG/3 MG (3 mL) NEB SCH ×4 (08:37→21:09)
[2019-06-02] MEDS: LEVAQUIN PREMIX IV 750 MG 750 MG/150 ML BAG IV SCH (08:39)
[2019-06-02] MEDS: SINGULAIR TAB 10 MG PO SCH (08:40)
[2019-06-02] MEDS: VSL#3 PO SCH (08:41)
[2019-06-02] MEDS: POTASSIUM CHLORIDE LIQ 20 MEQ UDC PO SCH (08:41)
[2019-06-02] MEDS: CITRACAL + VITAMIN D PO SCH (08:41)
[2019-06-02] MEDS: VITAMIN D3 PO SCH (08:41)
[2019-06-02] MEDS: PLAVIX PO SCH (08:41)
[2019-06-02] MEDS: ROBITUSSIN DM PO SCH ×4 (08:42→21:47)
[2019-06-02] MEDS: HEMOCYTE-PLUS PO SCH (08:42)
[2019-06-02] MEDS: COREG TAB 12.5 MG PO SCH ×2 (08:43→20:52)
[2019-06-02] MEDS: COLACE CAP 100 MG PO SCH ×2 (08:44→20:52)
[2019-06-02] MEDS: PROzac PO SCH (08:44)
[2019-06-02] MEDS: NORVASC TAB 2.5 MG PO SCH (08:44)
[2019-06-02] MEDS: FOLIC ACID TAB 1 MG PO SCH (08:44)
[2019-06-02] MEDS: NexIUM PO SCH (08:44)
[2019-06-02] MEDS: TAB-A-VITE PO SCH (08:44)
[2019-06-02] MEDS: CLARITIN PO SCH (08:44)
[2019-06-02] MEDS: NORCO 5/325 MG TAB PO SCH ×3 (08:45→21:48)
[2019-06-02] MEDS: FLONASE NASAL SPRAY ENOSTRIL SCH (08:46)
[2019-06-02] MEDS: CELEBREX PO SCH (08:47)
[2019-06-02] MEDS: NEURONTIN CAP 300 MG PO SCH ×3 (08:47→21:47)
[2019-06-02] MEDS: TobraDEX OPHTH OPHTH 1 DOSE EACHEYE SCH ×2 (14:30→20:53)
--- NOTE | 2019-06-02 17:17 | PCM.PROG ---
Progress Note - Progress Note for Day of Date of Exam: 06/02/19 - Subjective Subjective: WAS ADMITTED FOR TREATMENT OF PNEUMONIA. TODAY, SHE IS ALERT AND ORIENTED, LYING IN BED ON MORNING ROUNDS. SHE CONTINUE WITH COMPLAINTS OF SHORTNESS OF BREATH AND COUGH TODAY. SHE ALSO REPORTS DRAINAGE FROM EYES. SCLERA ARE NOTED WITH REDNESS AND THERE IS CRUSTING NOTED. BILATERAL LUNGS ARE NOTED WITH SCATTERED WHEEZING TODAY. HER VITALS THIS MORNING ARE: 97.8-89-22-94%-152/67. LABS WERE OBTAINED. ABNORMAL LAB VALUES INCLUDE THE FOLLOWING: RBC 3.12, HGB 11.0, HCT 32.1, GLUCOSE 112, CALCIUM 7.5, TOTAL BILI 0.10, AST 11, ALBUMIN 2.4. ABG REVEALED: PH 7.380, PC02 56.0, P02 70.0, HC03 33.1, O2 SATURATION 93.0, BASE EXCESS 6.4. BLOOD AND SPUTUM CULTURES ARE PENDING. A CHEST XRAY WAS OBTAINED TODAY AND REVALED: Cardiomegaly without congestive heart failure. Hyperinflation with chronic appearing interstitial lung changes consistent with COPD in the appropriate clinical setting. SHE IS CURRENTLY RECEIVING IV FORTAZ, IV LEVAQUIN, RESPIRATORY TX, SUPPLEMENTAL OXYGEN, AND HOME MEDICATIONS WERE RESUMED. TODAY, WE WILL START TOBRADEX EYE DROPS. OTHERWISE, WE PLAN TO FOLLOW UP WITH AM LABS AND CONTINUE TO MONITOR. - Past Medical Family Social History Past Med/Fam/Surg Hx: No changes since H&P Allergies: Allergies codeine Allergy (Verified 02/06/17 22:08) hydromorphone [From Dilaudid] Allergy (Verified 02/06/17 22:08) influenza virus vaccine qs 0113-5088 (36 mos, up) [From Single Use EZ Flu] Allergy (Verified 03/24/17 18:04) meperidine [From Demerol] Allergy (Verified 02/06/17 22:08) prednisone Allergy (Verified 02/06/17 22:08) - Review of Systems ROS: No change since H&P - Vital Signs and I&O's Vital Signs: Temperature 98.5 F Pulse Rate [Left] 72 Pulse Rate 77 Respiratory Rate 20 Blood Pressure [Left Arm] 131/58 Blood Pressure 116/49 O2 Sat by Pulse Oximetry 87 Intake and Output: Intake & Output 05/31/19 06/01/19 06/02/19/16/20 11:59 11:59 11:59 11:59 Intake Total 1445 / 1445 3078 / 3078 600 / 600 Output Total 1225 / 1225 800 / 800 Balance 220 / 220 2278 / 2278 600 / 600 - Physical Exam Oriented: Normal Eyes: Normal Ear: Normal Nose: Normal Throat: Normal Respiratory: Generalized, Diminished, Wheezes Cardiovascular: Normal. negative: S3, S4, Murmur : Normal Auscultation: Bowel Sounds: Normal Palpation: Normal Tenderness: Normal Skin: Normal Musculoskeletal: Normal Psychiatric: Normal Mood Description: Calm Affect: Normal Speech Pattern: Clear, Appropriate - Laboratory and Diagnostics Result Diagrams: 06/02/19 03:56 06/02/19 03:56 Labs: 05/31/19 17:47 Blood Blood Culture - Preliminary 05/31/19 17:57 Blood Blood Culture - Preliminary 06/01/19 12:39 Sputum - Expectorated Sputum Sputum Culture - Preliminary 06/01/19 12:39 Sputum - Expectorated Sputum - Final Laboratory WBC 5.2 X10^3/uL (3.6-10.0) 06/02/19 03:56 RBC 3.12 X10^6/uL (3.5-5.4) L 06/02/19 03:56 Hgb 11.0 g/dL (12.0-16.0) L 06/02/19 03:56 Hct 32.1 % (36.0-47.0) L 06/02/19 03:56 MCV 102.8 fL (80.0-100.0) H 06/02/19 03:56 MCH 35.1 pg (27.0-34.0) H 06/02/19 03:56 MCHC 34.2 g/dL (33.0-35.0) 06/02/19 03:56 RDW 14.4 % (11.6-16.5) 06/02/19 03:56 Plt Count 260 X10^3/uL (150.0-450.0) 06/02/19 03:56 Plt Count Comment Adequate (ADEQUATE) 06/01/19 04:08 MPV 6.9 fL (7.4-11.0) L 06/02/19 03:56 Neut % (Auto) 53.0 % (42.0-75.0) 06/02/19 03:56 Lymph % (Auto) 29.5 % (21.0-51.0) 06/02/19 03:56 Cloud % (Auto) 12.7 % (0.0-13.0) 06/02/19 03:56 Eos % (Auto) 4.2 % (0.9-2.9) H 06/02/19 03:56 Baso % (Auto) 0.6 % (0.2-1.0) 06/02/19 03:56 Neut # (Auto) 2.8 x10^3/uL (2.2-4.8) 06/02/19 03:56 Lymph # (Auto) 1.5 X10^3/uL (1.3-2.9) 06/02/19 03:56 Cloud # (Auto) 0.7 x10^3/uL (0.3-0.8) 06/02/19 03:56 Eos # (Auto) 0.2 x10^3/uL (0.0-0.2) 06/02/19 03:56 Baso # (Auto) 0.0 X10^3/uL (0.0-0.1) 06/02/19 03:56 Absolute Nucleated RBC 0.1 /100WBC 06/02/19 03:56 Plt Morphology Comment Normal (NORMAL) 06/01/19 04:08 RBC Morphology Abnormal (NORMAL) A 06/01/19 04:08 Macrocytosis 1+ A 06/01/19 04:08 Sample Site Rb 05/31/19 18:15 ABG pH 7.380 (7.35-7.45) 05/31/19 18:15 ABG pCO2 56.0 mmHg (35.0-45.0) H* 05/31/19 18:15 ABG pO2 70.0 mmHg (80.0-100.0) L 05/31/19 18:15 ABG HCO3 33.1 mmol/L (22-26) H* 05/31/19 18:15 ABG O2 Saturation 93.0 % (90-100) 05/31/19 18:15 ABG Base Excess 6.4 mmol/L (-2.0-2.0) H 05/31/19 18:15 Triston Test Na 05/31/19 18:15 A-a Gradient 60.0 mmHg 05/31/19 18:15 FiO2 28.0 05/31/19 18:15 Blood Gas Comments Quinten well cb 05/31/19 18:15 Sodium 140 mmol/L (136-145) 06/02/19 03:56 Corrected Sodium 140 mmol/L (136-145) 06/02/19 03:56 Potassium 4.3 mmol/L (3.5-5.1) 06/02/19 03:56 Chloride 104 mmol/L (98-107) 06/02/19 03:56 Carbon Dioxide 31.3 mmol/L (21-32) 06/02/19 03:56 BUN 11 mg/dL (7-18) 06/02/19 03:56 Creatinine 0.86 mg/dL (0.55-1.02) 06/02/19 03:56 Est GFR (MDRD) Af Amer > 60 (>60) 06/02/19 03:56 Est GFR (MDRD) Non-Af > 60 (>60) 06/02/19 03:56 Glucose 112 mg/dL (65-99) H 06/02/19 03:56 Calcium 7.5 mg/dL (8.5-10.1) L 06/02/19 03:56 Corrected Calcium 8.8 mg/dL (8.5-10.1) 06/02/19 03:56 Total Bilirubin 0.10 mg/dL (0.2-1.0) L 06/02/19 03:56 AST 11 Units/L (15-37) L 06/02/19 03:56 ALT 13 Units/L (12-78) 06/02/19 03:56 Alkaline Phosphatase 93 Units/L (46-116) 06/02/19 03:56 Creatine Kinase 61 Units/L (26-192) 05/31/19 14:56 CK-MB (CK-2) < 1.0 ng/mL (0-4.0) 05/31/19 14:56 CK/CKMB % Calc 1.6 % (<4) 05/31/19 14:56 Troponin I < 0.02 ng/mL (0-1.5) 05/31/19 14:56 Total Protein 6.4 g/dL (6.4-8.2) 06/02/19 03:56 Albumin 2.4 g/dL (3.4-5.0) L 06/02/19 03:56 Globulin 4.0 g/dL (2.5-4.5) 06/02/19 03:56 Albumin/Globulin Ratio 0.6 Ratio (1.1-2.1) L 06/02/19 03:56 - Plan (1) Pneumonia Status: Acute Qualifiers: Pneumonia type: due to unspecified organism Laterality: bilateral Lung location: lower lobe of lung Qualified Code(s): J18.9 - Pneumonia, unspecified organism Plan: IV FORTAZ, IV LEVAQUIN, RESPIRATORY TX, SUPPLEMENTAL OXYGEN, CONTINUE TO MONITOR (2) Hypoxia Status: Acute
[2019-06-02] MEDS: CRESTOR TAB 10 MG PO SCH (20:53)
[2019-06-02] MEDS: KLONOPIN TAB 1 MG PO SCH (20:53)
[2019-06-02] MEDS: XARELTO PO SCH (20:53)
[2019-06-03] MEDS ORDERED: NS 1/2 1000 ML IV 1,000 ML IV ONE (05:04)
[2019-06-03] MEDS: NS 1/2 1000 ML IV 1,000 ML IV SCH (05:06)
[2019-06-03] MEDS: NEURONTIN CAP 300 MG PO SCH ×4 (05:30→22:05)
[2019-06-03] MEDS: FORTAZ or TAZICEF VIAL INJ 1 G in NS 100 ML IV + SPIKE MINIBAG* 100 ML IV SCH ×2 (06:02→18:16)
--- NOTE | 2019-06-03 06:27 | RAD ---
HISTORYShortness of breathSTUDYCHEST, 1 [id number]/2020FINDINGSThe heart remains enlarged. Bilateral hilar prominence is unchanged. There is now some pulmonary venous congestion present. No definite interstitial edema alveolar edema or alveolar infiltrates are identified. Hyperinflation is present. No pleural effusions are identified. Bony thorax is unremarkable.IMPRESSIONCardiomegaly with new pulmonary venous congestionHyperinflationElectronically signed by: MARY ELLEN CORRAL (Jun 03, 2019 06:26:54)
[2019-06-03 06:33] LABS: BASOPHILS % (AUTO) 0.4 % (0.2-1.0); EOSINOPHILS # (AUTO) 0.2 x10^3/uL (0.0-0.2); EOSINOPHILS % (AUTO) 3.3 % (0.9-2.9); HEMATOCRIT 32.9 % (36.0-47.0); HEMOGLOBIN 10.6 g/dL (12.0-16.0); LYMPHOCYTES % (AUTO) 14.1 % (21.0-51.0); MEAN CORPUSCULAR HEMOGLOBIN 29.9 pg (27.0-34.0); MEAN CORPUSCULAR HGB CONC 32.3 g/dL (33.0-35.0); MEAN CORPUSCULAR VOLUME 92.6 fL (80.0-100.0); MEAN PLATELET VOLUME 6.5 fL (7.4-11.0); MONOCYTES # (AUTO) 0.8 x10^3/uL (0.3-0.8); MONOCYTES % (AUTO) 11.2 % (0.0-13.0); NEUTROPHILS # (AUTO) 5.3 x10^3/uL (2.2-4.8); PLATELET COUNT 264 X10^3/uL (150.0-450.0); RED BLOOD COUNT 3.55 X10^6/uL (3.5-5.4); RED CELL DISTRIBUTION WIDTH 14.7 % (11.6-16.5); WHITE BLOOD COUNT 7.4 X10^3/uL (3.6-10.0)
[2019-06-03 06:52] LABS: ALANINE AMINOTRANSFERASE 17 Units/L (12-78); ALBUMIN 2.3 g/dL (3.4-5.0); ALKALINE PHOSPHATASE 93 Units/L (46-116); ASPARTATE AMINO TRANSFERASE 12 Units/L (15-37); BLOOD UREA NITROGEN 10 mg/dL (7-18); CALCIUM 7.6 mg/dL (8.5-10.1); CARBON DIOXIDE 33.8 mmol/L (21-32); CHLORIDE 105 mmol/L (98-107); COR NA(FOR HYPERGLY) 140 mmol/L (136-145); CREATININE 0.85 mg/dL (0.55-1.02); SODIUM 140 mmol/L (136-145); TOTAL PROTEIN 6.2 g/dL (6.4-8.2); eGFR NON BLACK RACES > 60 (>60)
[2019-06-03] MEDS ORDERED: NORVASC TAB 2.5 MG ONE ×2 (08:29→09:35)
[2019-06-03] MEDS: LEVAQUIN PREMIX IV 750 MG 750 MG/150 ML BAG IV SCH (09:12)
[2019-06-03] MEDS: SINGULAIR TAB 10 MG PO SCH (09:14)
[2019-06-03] MEDS: FOLIC ACID TAB 1 MG PO SCH (09:14)
[2019-06-03] MEDS: HEMOCYTE-PLUS PO SCH (09:15)
[2019-06-03] MEDS: PROzac PO SCH (09:15)
[2019-06-03] MEDS: POTASSIUM CHLORIDE LIQ 20 MEQ UDC PO SCH (09:15)
[2019-06-03] MEDS: NexIUM PO SCH (09:15)
[2019-06-03] MEDS: CLARITIN PO SCH (09:16)
[2019-06-03] MEDS: COLACE CAP 100 MG PO SCH ×2 (09:16→22:03)
[2019-06-03] MEDS: VSL#3 PO SCH (09:16)
[2019-06-03] MEDS: VITAMIN D3 PO SCH (09:16)
[2019-06-03] MEDS: COREG TAB 12.5 MG PO SCH ×2 (09:16→22:04)
[2019-06-03] MEDS: TAB-A-VITE PO SCH (09:16)
[2019-06-03] MEDS: CITRACAL + VITAMIN D PO SCH (09:17)
[2019-06-03] MEDS: ROBITUSSIN DM PO SCH ×4 (09:17→22:04)
[2019-06-03] MEDS: CELEBREX PO SCH (09:17)
[2019-06-03] MEDS: TobraDEX OPHTH OPHTH 1 DOSE EACHEYE SCH ×2 (09:18→22:05)
[2019-06-03] MEDS: FLONASE NASAL SPRAY ENOSTRIL SCH (09:18)
[2019-06-03] MEDS: NORVASC TAB 2.5 MG PO SCH (09:37)
[2019-06-03] MEDS: PLAVIX PO SCH (09:38)
[2019-06-03] MEDS: NORCO 5/325 MG TAB PO SCH ×3 (09:42→22:05)
[2019-06-03] MEDS: DUONEB 0.5 MG/3 MG (3 mL) NEB SCH ×4 (09:44→20:40)
[2019-06-03] MEDS: PULMICORT NEB TX 0.5 MG NEB SCH ×2 (13:37→20:40)
[2019-06-03] MEDS: LASIX IVP SCH ×2 (13:40→22:04)
--- NOTE | 2019-06-03 20:12 | PCM.PROG ---
Progress Note - Progress Note for Day of Date of Exam: 06/03/19 - Subjective Subjective: WAS ADMITTED FOR TREATMENT OF PNEUMONIA. TODAY, SHE IS ALERT AND ORIENTED, LYING IN BED ON MORNING ROUNDS. SHE CONTINUE WITH COMPLAINTS OF SHORTNESS OF BREATH AND COUGH TODAY. ON EXAMINATION, BILATERAL LUNGS ARE NOTED WITH SCATTERED WHEEZING TODAY. HER VITALS THIS MORNING ARE: 98.2- 68-20-92%-138/61. LABS WERE OBTAINED. ABNORMAL LAB VALUES INCLUDE THE FOLLOWING: HGB 10.6, HCT 32.9, CARBON DIOXIDE 33.8, GLUCOSE 117, CALCIUM 7.6, TOTAL BILI 0.10, AST 12, TOTAL PROTEIN 6.2, ALBUMIN 2.3. BLOOD AND SPUTUM CULTURES ARE PENDING. A CHEST XRAY WAS OBTAINED TODAY AND REVALED: Cardiomegaly with new pulmonary venous congestion. Hyperinflation. SHE IS CURRENTLY RECEIVING IV FORTAZ, IV LEVAQUIN, RESPIRATORY TX, SUPPLEMENTAL OXYGEN, AND HOME MEDICATIONS WERE RESUMED. TODAY, WE WILL START LASIX 40MG IV BID X 2 DOSES AND ADD PULMICORT NEB TX. OTHERWISE, WE PLAN TO FOLLOW UP WITH AM LABS AND CONTINUE TO MONITOR. - Past Medical Family Social History Past Med/Fam/Surg Hx: No changes since H&P Allergies: Allergies codeine Allergy (Verified 02/06/17 22:08) hydromorphone [From Dilaudid] Allergy (Verified 02/06/17 22:08) influenza virus vaccine qs 0746-4597 (36 mos, up) [From Single Use EZ Flu] Allergy (Verified 03/24/17 18:04) meperidine [From Demerol] Allergy (Verified 02/06/17 22:08) prednisone Allergy (Verified 02/06/17 22:08) - Review of Systems ROS: No change since H&P - Vital Signs and I&O's Vital Signs: Temperature 97.8 F Pulse Rate [Left] 72 Pulse Rate 68 Respiratory Rate 20 Blood Pressure [Left Arm] 131/58 Blood Pressure 110/52 O2 Sat by Pulse Oximetry 95 Intake and Output: Intake & Output 06/01/19 06/02/19 06/03/19 06/04/19 11:59 11:59 11:59 11:59 Intake Total 1445 / 1445 3078 / 3078 1540 / 1540 240 / 240 Output Total 1225 / 1225 800 / 800 Balance 220 / 220 2278 / 2278 1540 / 1540 240 / 240 - Physical Exam Oriented: Normal Eyes: Normal Ear: Normal Nose: Normal Throat: Normal Respiratory: Generalized, Diminished, Wheezes Cardiovascular: Normal. negative: S3, S4, Murmur : Normal Auscultation: Bowel Sounds: Normal Tenderness: Normal Skin: Normal Musculoskeletal: Normal Psychiatric: Normal Mood Description: Calm Affect: Normal Speech Pattern: Clear, Appropriate - Laboratory and Diagnostics Result Diagrams: 06/03/19 06:00 06/03/19 06:00 Labs: 06/01/19 12:39 Sputum - Expectorated Sputum Sputum Culture - Final 06/01/19 12:39 Sputum - Expectorated Sputum - Final 05/31/19 17:47 Blood Blood Culture - Preliminary 05/31/19 17:57 Blood Blood Culture - Preliminary Laboratory WBC 7.4 X10^3/uL (3.6-10.0) 06/03/19 06:00 RBC 3.55 X10^6/uL (3.5-5.4) 06/03/19 06:00 Hgb 10.6 g/dL (12.0-16.0) L 06/03/19 06:00 Hct 32.9 % (36.0-47.0) L 06/03/19 06:00 MCV 92.6 fL (80.0-100.0) 06/03/19 06:00 MCH 29.9 pg (27.0-34.0) 06/03/19 06:00 MCHC 32.3 g/dL (33.0-35.0) L 06/03/19 06:00 RDW 14.7 % (11.6-16.5) 06/03/19 06:00 Plt Count 264 X10^3/uL (150.0-450.0) 06/03/19 06:00 Plt Count Comment Adequate (ADEQUATE) 06/01/19 04:08 MPV 6.5 fL (7.4-11.0) L 06/03/19 06:00 Neut % (Auto) 71.0 % (42.0-75.0) 06/03/19 06:00 Lymph % (Auto) 14.1 % (21.0-51.0) L 06/03/19 06:00 Pitkin % (Auto) 11.2 % (0.0-13.0) 06/03/19 06:00 Eos % (Auto) 3.3 % (0.9-2.9) H 06/03/19 06:00 Baso % (Auto) 0.4 % (0.2-1.0) 06/03/19 06:00 Neut # (Auto) 5.3 x10^3/uL (2.2-4.8) H 06/03/19 06:00 Lymph # (Auto) 1.0 X10^3/uL (1.3-2.9) L 06/03/19 06:00 Pitkin # (Auto) 0.8 x10^3/uL (0.3-0.8) 06/03/19 06:00 Eos # (Auto) 0.2 x10^3/uL (0.0-0.2) 06/03/19 06:00 Baso # (Auto) 0.0 X10^3/uL (0.0-0.1) 06/03/19 06:00 Absolute Nucleated RBC 0.0 /100WBC 06/03/19 06:00 Plt Morphology Comment Normal (NORMAL) 06/01/19 04:08 RBC Morphology Abnormal (NORMAL) A 06/01/19 04:08 Macrocytosis 1+ A 06/01/19 04:08 Sample Site Rb 05/31/19 18:15 ABG pH 7.380 (7.35-7.45) 05/31/19 18:15 ABG pCO2 56.0 mmHg (35.0-45.0) H* 05/31/19 18:15 ABG pO2 70.0 mmHg (80.0-100.0) L 05/31/19 18:15 ABG HCO3 33.1 mmol/L (22-26) H* 05/31/19 18:15 ABG O2 Saturation 93.0 % (90-100) 05/31/19 18:15 ABG Base Excess 6.4 mmol/L (-2.0-2.0) H 05/31/19 18:15 Triston Test Na 05/31/19 18:15 A-a Gradient 60.0 mmHg 05/31/19 18:15 FiO2 28.0 05/31/19 18:15 Blood Gas Comments Quinten well cb 05/31/19 18:15 Sodium 140 mmol/L (136-145) 06/03/19 06:00 Corrected Sodium 140 mmol/L (136-145) 06/03/19 06:00 Potassium 4.9 mmol/L (3.5-5.1) 06/03/19 06:00 Chloride 105 mmol/L (98-107) 06/03/19 06:00 Carbon Dioxide 33.8 mmol/L (21-32) H 06/03/19 06:00 BUN 10 mg/dL (7-18) 06/03/19 06:00 Creatinine 0.85 mg/dL (0.55-1.02) 06/03/19 06:00 Est GFR (MDRD) Af Amer > 60 (>60) 06/03/19 06:00 Est GFR (MDRD) Non-Af > 60 (>60) 06/03/19 06:00 Glucose 117 mg/dL (65-99) H 06/03/19 06:00 Calcium 7.6 mg/dL (8.5-10.1) L 06/03/19 06:00 Corrected Calcium 9.0 mg/dL (8.5-10.1) 06/03/19 06:00 Total Bilirubin 0.10 mg/dL (0.2-1.0) L 06/03/19 06:00 AST 12 Units/L (15-37) L 06/03/19 06:00 ALT 17 Units/L (12-78) 06/03/19 06:00 Alkaline Phosphatase 93 Units/L (46-116) 06/03/19 06:00 Creatine Kinase 61 Units/L (26-192) 05/31/19 14:56 CK-MB (CK-2) < 1.0 ng/mL (0-4.0) 05/31/19 14:56 CK/CKMB % Calc 1.6 % (<4) 05/31/19 14:56 Troponin I < 0.02 ng/mL (0-1.5) 05/31/19 14:56 Total Protein 6.2 g/dL (6.4-8.2) L 06/03/19 06:00 Albumin 2.3 g/dL (3.4-5.0) L 06/03/19 06:00 Globulin 3.9 g/dL (2.5-4.5) 06/03/19 06:00 Albumin/Globulin Ratio 0.6 Ratio (1.1-2.1) L 06/03/19 06:00 - Plan (1) Pneumonia Status: Acute Qualifiers: Pneumonia type: due to unspecified organism Laterality: bilateral Lung location: lower lobe of lung Qualified Code(s): J18.9 - Pneumonia, unspecified organism Plan: IV FORTAZ, IV LEVAQUIN, RESPIRATORY TX, SUPPLEMENTAL OXYGEN, CONTINUE TO MONITOR (2) Hypoxia Status: Acute (3) Pulmonary vascular congestion Status: Acute Plan: LASIX 40MG IV BID X 2 DOSES
[2019-06-03] MEDS: CRESTOR TAB 10 MG PO SCH (22:04)
[2019-06-03] MEDS: KLONOPIN TAB 1 MG PO SCH (22:04)
[2019-06-03] MEDS: XARELTO PO SCH (22:05)
[2019-06-04] MEDS: FORTAZ or TAZICEF VIAL INJ 1 G in NS 100 ML IV + SPIKE MINIBAG* 100 ML IV SCH (05:22)
[2019-06-04 05:34] LABS: BASOPHILS % (AUTO) 0.4 % (0.2-1.0); EOSINOPHILS # (AUTO) 0.3 x10^3/uL (0.0-0.2); HEMATOCRIT 31.5 % (36.0-47.0); HEMOGLOBIN 10.5 g/dL (12.0-16.0); LYMPHOCYTES # (AUTO) 1.2 X10^3/uL (1.3-2.9); LYMPHOCYTES % (AUTO) 20.3 % (21.0-51.0); MEAN CORPUSCULAR HEMOGLOBIN 33.1 pg (27.0-34.0); MEAN CORPUSCULAR HGB CONC 33.5 g/dL (33.0-35.0); MEAN CORPUSCULAR VOLUME 98.8 fL (80.0-100.0); MONOCYTES # (AUTO) 0.7 x10^3/uL (0.3-0.8); MONOCYTES % (AUTO) 12.4 % (0.0-13.0); NEUTROPHILS # (AUTO) 3.7 x10^3/uL (2.2-4.8); NEUTROPHILS % (AUTO) 61.9 % (42.0-75.0); PLATELET COUNT 250 X10^3/uL (150.0-450.0); RED BLOOD COUNT 3.19 X10^6/uL (3.5-5.4); RED CELL DISTRIBUTION WIDTH 14.3 % (11.6-16.5); WHITE BLOOD COUNT 5.9 X10^3/uL (3.6-10.0)
[2019-06-04 05:43] LABS: ALANINE AMINOTRANSFERASE 14 Units/L (12-78); ALBUMIN 2.3 g/dL (3.4-5.0); ALKALINE PHOSPHATASE 97 Units/L (46-116); ASPARTATE AMINO TRANSFERASE 11 Units/L (15-37); BLOOD UREA NITROGEN 11 mg/dL (7-18); CALCIUM 7.9 mg/dL (8.5-10.1); CARBON DIOXIDE 37.3 mmol/L (21-32); CHLORIDE 102 mmol/L (98-107); COR CA(FOR HYPOALB) 9.3 mg/dL (8.5-10.1); COR NA(FOR HYPERGLY) 140 mmol/L (136-145); CREATININE 0.86 mg/dL (0.55-1.02); SODIUM 140 mmol/L (136-145); TOTAL PROTEIN 6.2 g/dL (6.4-8.2); eGFR NON BLACK RACES > 60 (>60)
--- NOTE | 2019-06-04 06:35 | RAD ---
HISTORYShortness of breathSTUDYCHEST, 1 [id number]/2020FINDINGSThe heart remains enlarged. Bilateral hilar prominence is unchanged. Pulmonary venous congestion is unchanged. No definite interstitial edema, alveolar edema, alveolar infiltrates or pleural effusions are identified. The lungs are hyperinflated. Bony thorax is unremarkable.IMPRESSIONNo significant change from the prior examinationElectronically signed by: MARY ELLEN CORRAL (Jun 04, 2019 06:33:43)
[2019-06-04] MEDS ORDERED: NORVASC TAB 2.5 MG ONE (07:52)
[2019-06-04] MEDS: VSL#3 PO SCH (08:42)
[2019-06-04] MEDS: LASIX IVP SCH (08:42)
[2019-06-04] MEDS: POTASSIUM CHLORIDE LIQ 20 MEQ UDC PO SCH (08:43)
[2019-06-04] MEDS: PROzac PO SCH (08:44)
[2019-06-04] MEDS: NexIUM PO SCH (08:45)
[2019-06-04] MEDS: CITRACAL + VITAMIN D PO SCH (08:45)
[2019-06-04] MEDS: PLAVIX PO SCH (08:45)
[2019-06-04] MEDS: TAB-A-VITE PO SCH (08:45)
[2019-06-04] MEDS: FOLIC ACID TAB 1 MG PO SCH (08:45)
[2019-06-04] MEDS: CLARITIN PO SCH (08:45)
[2019-06-04] MEDS: NEURONTIN CAP 300 MG PO SCH (08:46)
[2019-06-04] MEDS: COLACE CAP 100 MG PO SCH (08:46)
[2019-06-04] MEDS: HEMOCYTE-PLUS PO SCH (08:46)
[2019-06-04] MEDS: CELEBREX PO SCH (08:47)
[2019-06-04] MEDS: VITAMIN D3 PO SCH (08:47)
[2019-06-04] MEDS: COREG TAB 12.5 MG PO SCH (08:47)
[2019-06-04] MEDS: NORCO 5/325 MG TAB PO SCH (08:48)
[2019-06-04] MEDS: TobraDEX OPHTH OPHTH 1 DOSE EACHEYE SCH (08:49)
[2019-06-04] MEDS: ROBITUSSIN DM PO SCH (08:49)
[2019-06-04] MEDS: FLONASE NASAL SPRAY ENOSTRIL SCH (08:49)
[2019-06-04] MEDS: SINGULAIR TAB 10 MG PO SCH (08:49)
[2019-06-04] MEDS: NORVASC TAB 2.5 MG PO SCH (08:49)
[2019-06-04] MEDS: LEVAQUIN PREMIX IV 750 MG 750 MG/150 ML BAG IV SCH (08:50)
[2019-06-04] MEDS: DUONEB 0.5 MG/3 MG (3 mL) NEB SCH (09:09)
[2019-06-04] MEDS: PULMICORT NEB TX 0.5 MG NEB SCH (09:10)
[2019-06-04 13:04] VITALS: BP 130/76
[2019-06-04] MEDS ORDERED: MILK OF MAGNESIA PO SCH (21:00)
[2019-06-04] MEDS ORDERED: COLACE CAP 100 MG PO SCH (21:00)
== END 2019-06-04 13:50 | DRG 195 ==
LOC: ER 14:32 → ICU 17:56 → MED/SURG 06-02 15:19
PROVIDERS: ADMIT Internal Medicine; ATTEND Internal Medicine
DX: R06.02 Shortness of breath; J18.8 Other pneumonia, unspecified organism; R26.89 Other abnormalities of gait and mobility; E78.49 Other hyperlipidemia; I25.10 Atherosclerotic heart disease of native coronary artery without angina pectoris; I10 Essential (primary) hypertension; K21.9 Gastro-esophageal reflux disease without esophagitis; J44.9 Chronic obstructive pulmonary disease, unspecified; R09.02 Hypoxemia
CPT/HCPCS: 36415; 36600; 71010; 71045; 80053; 82550; 82553; 82803; 84484; 85025; 87040; 87070; 87205; 93005; 93306; 94640; 96365; 96374; 96375; 97110; 97162; 97530; 99284; A4222; J0713; J1940; J1956; J3490; J7050; J7620; J7626

== ENCOUNTER 2019-12-17 12:00 | Inpatient (IN) ==
[2019-12-17] MEDS: PULMICORT NEB TX 0.5 MG NEB SCH ×2 (14:40→21:10)
[2019-12-17] MEDS ORDERED: DUONEB 0.5 MG/3 MG (3 mL) NEB SCH (15:00)
[2019-12-17 15:14] LABS: ABG BASE EXCESS 4.1 mmol/L (-2.0-2.0)
[2019-12-17 15:16] LABS: ABG HCO3 31.3 mmol/L (22-26)
[2019-12-17 15:17] LABS: BASOPHILS % (AUTO) 0.1 % (0.2-1.0); HEMATOCRIT 35.4 % (36.0-47.0); HEMOGLOBIN 11.4 g/dL (12.0-16.0); LYMPHOCYTES # (AUTO) 0.5 X10^3/uL (1.3-2.9); LYMPHOCYTES % (AUTO) 6.3 % (21.0-51.0); MEAN CORPUSCULAR HEMOGLOBIN 29.3 pg (27.0-34.0); MEAN CORPUSCULAR HGB CONC 32.3 g/dL (33.0-35.0); MEAN CORPUSCULAR VOLUME 90.8 fL (80.0-100.0); MONOCYTES # (AUTO) 0.3 x10^3/uL (0.3-0.8); NEUTROPHILS % (AUTO) 89.6 % (42.0-75.0); PLATELET COUNT 277 X10^3/uL (150.0-450.0); RED CELL DISTRIBUTION WIDTH 14.7 % (11.6-16.5); WHITE BLOOD COUNT 7.9 X10^3/uL (3.6-10.0)
[2019-12-17] MEDS: LEVAQUIN PREMIX IV 500 MG 500 MG/100 ML BAG IV SCH (15:30)
[2019-12-17] MEDS: NS 1/2 1000 ML IV 1,000 ML IV SCH (15:30)
[2019-12-17 15:35] LABS: ALANINE AMINOTRANSFERASE 25 Units/L (12-78); ALBUMIN 2.3 g/dL (3.4-5.0); ALKALINE PHOSPHATASE 85 Units/L (46-116); ASPARTATE AMINO TRANSFERASE 37 Units/L (15-37); BLOOD UREA NITROGEN 19 mg/dL (7-18); CALCIUM 8.2 mg/dL (8.5-10.1); CARBON DIOXIDE 28.9 mmol/L (21-32); CHLORIDE 99 mmol/L (98-107); COR CA(FOR HYPOALB) 9.6 mg/dL (8.5-10.1); CREATININE 1.15 mg/dL (0.55-1.02); SODIUM 135 mmol/L (136-145); TOTAL PROTEIN 6.7 g/dL (6.4-8.2); eGFR NON BLACK RACES 48 (>60)
--- NOTE | 2019-12-17 15:47 | RAD ---
HISTORYCOVID POSITIVE, PNEUMONIASTUDYCHEST, 1 [id number]/23/2020FINDINGSStable large cardiomegaly. There is perihilar infiltrates in the upper lobes. No significant effusion. No pneumothorax. There is some vascular cephalization. Focal right lower lobe para cardiac radiopacity.IMPRESSIONVascular cephalization with central perihilar infiltrates consider pulmonary edema with also superimposed alveolar radiopacity in the right pericardiac region. Consider pneumoniaElectronically signed by: Mia Tolentino (Dec 17, 2019 15:46:29)
[2019-12-17] MEDS ORDERED: NS 1/2 1000 ML IV 1,000 ML IV ONE ×2 (15:53→20:38)
[2019-12-17] MEDS: DUONEB 0.5 MG/3 MG (3 mL) NEB SCH ×2 (16:35→21:10)
[2019-12-17] MEDS: VSL#3 PO SCH (19:06)
[2019-12-17] MEDS: ROBITUSSIN DM PO SCH ×2 (19:07→20:57)
[2019-12-17] MEDS: SOLU-Medrol 40 MG VIAL IVP SCH ×2 (19:07→21:28)
[2019-12-17] MEDS ORDERED: PHARMACY CONSULT LTC MEDICATIONS XX SCH (20:00)
[2019-12-17] MEDS: XARELTO PO SCH (20:58)
[2019-12-18] MEDS: NS 1/2 1000 ML IV 1,000 ML IV SCH ×2 (05:06→20:00)
[2019-12-18 05:38] LABS: BASOPHILS % (AUTO) 0.3 % (0.2-1.0); HEMATOCRIT 37.4 % (36.0-47.0); HEMOGLOBIN 12.7 g/dL (12.0-16.0); LYMPHOCYTES # (AUTO) 0.4 X10^3/uL (1.3-2.9); LYMPHOCYTES % (AUTO) 5.4 % (21.0-51.0); MEAN CORPUSCULAR HEMOGLOBIN 32.9 pg (27.0-34.0); MEAN CORPUSCULAR VOLUME 96.6 fL (80.0-100.0); MEAN PLATELET VOLUME 7.1 fL (7.4-11.0); MONOCYTES # (AUTO) 0.2 x10^3/uL (0.3-0.8); MONOCYTES % (AUTO) 3.1 % (0.0-13.0); NEUTROPHILS # (AUTO) 6.7 x10^3/uL (2.2-4.8); NEUTROPHILS % (AUTO) 91.2 % (42.0-75.0); PLATELET COUNT 330 X10^3/uL (150.0-450.0); RED BLOOD COUNT 3.87 X10^6/uL (3.5-5.4); WHITE BLOOD COUNT 7.3 X10^3/uL (3.6-10.0)
[2019-12-18 05:51] LABS: ALANINE AMINOTRANSFERASE 25 Units/L (12-78); ALBUMIN 2.2 g/dL (3.4-5.0); ALKALINE PHOSPHATASE 87 Units/L (46-116); ASPARTATE AMINO TRANSFERASE 36 Units/L (15-37); BLOOD UREA NITROGEN 15 mg/dL (7-18); CALCIUM 8.3 mg/dL (8.5-10.1); CARBON DIOXIDE 27.1 mmol/L (21-32); CHLORIDE 98 mmol/L (98-107); COR CA(FOR HYPOALB) 9.7 mg/dL (8.5-10.1); COR NA(FOR HYPERGLY) 136 mmol/L (136-145); CREATININE 0.86 mg/dL (0.55-1.02); SODIUM 135 mmol/L (136-145); TOTAL PROTEIN 7.1 g/dL (6.4-8.2); eGFR NON BLACK RACES > 60 (>60)
--- NOTE | 2019-12-18 05:59 | RAD ---
HISTORYSOB pneumoniaSTUDYAP [id number]/31/2020FINDINGSStable cardiomegaly. Increasing bilateral confluent airspace disease in both lungs, left greater than right. No large pleural effusion or pneumothorax identified.IMPRESSIONIncreasing bilateral airspace disease consistent with progressive pneumonia.Electronically signed by: VILLA PLEITEZ (Dec 18, 2019 05:59:00)
[2019-12-18] MEDS: SOLU-Medrol 40 MG VIAL IVP SCH (06:20)
[2019-12-18 06:22] LABS: ABG BASE EXCESS -0.1 mmol/L (-2.0-2.0)
[2019-12-18 06:26] LABS: BAND NEUTROPHILS % 11 % (0-10); PLATELET MORPHOLOGY COMMENT NORMAL (NORMAL)
[2019-12-18 07:30] VITALS: BMI 30.7
[2019-12-18] MEDS ORDERED: SOLU-Medrol 40 MG VIAL IVP ONE (08:20)
[2019-12-18] MEDS: ZINC SULFATE PO SCH (08:30)
[2019-12-18] MEDS: ROBITUSSIN DM PO SCH ×4 (08:30→20:29)
[2019-12-18] MEDS: VSL#3 PO SCH (08:30)
[2019-12-18] MEDS: DUONEB 0.5 MG/3 MG (3 mL) NEB SCH ×4 (08:35→20:05)
[2019-12-18] MEDS: PULMICORT NEB TX 0.5 MG NEB SCH ×2 (08:35→20:05)
[2019-12-18] MEDS ORDERED: FLONASE NASAL SPRAY ENOSTRIL PRN (09:10)
[2019-12-18] MEDS ORDERED: VOLTAREN 1 % GEL MULTI DOSE TUBE TOP PRN (09:10)
[2019-12-18] MEDS ORDERED: FEXOFENADINE 60 MG PO SCH (09:15)
[2019-12-18] MEDS: LEVAQUIN PREMIX IV 500 MG 500 MG/100 ML BAG IV SCH (09:30)
[2019-12-18] MEDS ORDERED: ACTEMRA 400 MG in NS 100 ML IV 80 ML IV NR (10:00)
[2019-12-18 13:17] LABS: BILIRUBIN,URINE NEGATIVE (NEGATIVE); BLOOD/HEMOGLOBIN,URINE 2+ (NEGATIVE); GLUCOSE, URINE NEGATIVE (NEGATIVE); KETONES,URINE 3+ (NEGATIVE); LEUKOCYTE ESTERASE ,URINE NEGATIVE (NEGATIVE); NITRITES,URINE NEGATIVE (NEGATIVE); PROTEIN,URINE 3+ (NEGATIVE); UROBILINOGEN,URINE NORMAL (NORMAL)
[2019-12-18 13:26] LABS: APPEARANCE,URINE CLEAR (CLEAR); COLOR,URINE PALE YELLOW (YELLOW)
[2019-12-18 13:27] LABS: AMORPHOUS SEDIMENT,UR TRACE /HPF (NEGATIVE); BACTERIA,URINE NEGATIVE /HPF (NEGATIVE); RBC,URINE 0-2 /HPF (0-3); SQUAMOUS EPITHELIAL CELL,UR NEGATIVE /HPF (NEGATIVE)
[2019-12-18 13:28] LABS: GRANULAR CASTS,URINE RARE /LPF (NEGATIVE)
[2019-12-18 13:29] LABS: MUCUS,URINE FEW /HPF (NEGATIVE)
[2019-12-18] MEDS: CALCIUM CARBONATE VITAMIN D3 PO SCH ×2 (14:00→20:26)
[2019-12-18] MEDS: CLARITIN PO SCH (14:01)
[2019-12-18] MEDS: PATIENT'S HOME MEDICATION (Ferrous Fumarate [Ferrocite] 324 MG) PO SCH (14:01)
[2019-12-18] MEDS: COLACE CAP 100 MG PO SCH ×2 (14:01→20:26)
[2019-12-18] MEDS: CELEBREX PO SCH (14:01)
[2019-12-18] MEDS: NEURONTIN CAP 300 MG PO SCH ×3 (14:02→22:21)
[2019-12-18] MEDS: COREG TAB 12.5 MG PO SCH ×2 (14:02→20:27)
[2019-12-18] MEDS: LASIX PO SCH (14:02)
[2019-12-18] MEDS: NORCO 7.5/325 MG TAB PO SCH ×3 (14:03→22:21)
[2019-12-18] MEDS: NexIUM PO SCH (14:03)
[2019-12-18] MEDS: PLAQUENIL PO SCH ×2 (14:04→20:28)
[2019-12-18] MEDS: PLAVIX PO SCH (14:05)
[2019-12-18] MEDS: SINGULAIR TAB 10 MG PO SCH (14:05)
[2019-12-18] MEDS: POTASSIUM CHLORIDE LIQ 20 MEQ UDC PO SCH (14:05)
[2019-12-18] MEDS: TAB-A-VITE PO SCH (14:06)
[2019-12-18] MEDS: VITAMIN C PO SCH (14:06)
[2019-12-18] MEDS: SOLU-Medrol 125 MG VIAL IVP SCH ×2 (14:07→22:21)
[2019-12-18] MEDS: VITAMIN D3 125 mcg (5,000 UNITS) PO SCH (14:08)
[2019-12-18] MEDS: PROzac PO SCH (14:10)
[2019-12-18] MEDS: FOLIC ACID TAB 1 MG PO SCH (14:11)
[2019-12-18] MEDS: CRESTOR TAB 10 MG PO SCH (20:28)
[2019-12-18] MEDS: XARELTO PO SCH (20:29)
[2019-12-18] MEDS: KLONOPIN TAB 1 MG PO SCH (20:30)
[2019-12-18] MEDS: MUCINEX EXPECTORANT PO SCH (20:30)
--- NOTE | 2019-12-18 21:27 | DR.H&P ---
H&P - History & Physical for Day of: H&P Date: 12/17/19 - Chief Complaint Chief Complaint: COUGH, SOB, FEVER, LOW OXYGEN SATURATIONS - History of Present Illness History of Present Illness: IS A 79 YEAR OLD PATIENT OF OURS. SHE IS A RESIDENT OF [facility]. SHE PRESENTED TO THE HOSPITAL A DIRECT ADMISSION DUE TO COMPLAINTS OF COUGH, SHORTNESS OF BREATH, FEVER, AND LOW OXYGEN SATURATIONS. SHE HAS RECENTLY TESTED POSITIVE FOR COVID-19. SHE HAD BEEN RECEIVING AZITHROMYCIN 500MG PO DAILY, HYDROXYCHLOROQUINE 200MG PO BID, MUCINEX, ROBITUSSIN, AND ZINC 220MG PO DAILY AT THE [facility] WITHOUT IMPROVEMENT IN SYMPTOMS. HER PMH INCLUDES: NEUROPATHY, CAD, CHF, FL, HYPERLIPIDEMIA, HTN, COPD, CHRONIC SINUSITIS, GERD, HYSTERECTOMY, ANEMIA, ANXIETY, DEPRESSION, AND APPENDECTOMY. ON ARRIVAL TO THE HOSPITAL, VITALS WERE 98.9-83-26-91%NC-164/72. LABS WERE OBTAINED. ABNORMAL LAB VALUES INCLUDE THE FOLLOWING: HGB 11.4, HCT 35.4, SODIUM 135, BUN 19, CREATININE 1.15, GLUCOSE 110, CALCIUM 8.2, FERRITIN 543, CRP 195.90, ALBUMIN 2.3. A URINALYSIS WAS OBTAINED AND REVEALED: WBC NONE SEEN, RBC 0-2, LEUKOCYTES NEGATIVE, BACTERIA NEGATIVE, OCCULT BLOOD 2+, KETONES 3+. AN ABG WAS OBTAINED AND REVEALED: PH 7.340, PC02 59.0, P02 52.0, HC03 31.8, 02 SATURATION 84.0, BASE EXCESS 4.5, FIO2 28.0. BLOOD AND SPUTUM CULTURES WERE SET UP. A CHEST XRAY WAS OBTAINED AND REVEALED: Vascular cephalization with central perihilar infiltrates consider pulmonary edema with also superimposed alveolar radiopacity in the right pericardiac region. Consider pneumonia. SHE WAS STARTED ON 1/2NS AT 75 ML/HR, LEVAQUIN 500MG IV DAILY, PLAQUENIL 200MG PO BID, ZINC SULFATE 220MG PO DAILY, ROBITUSSIN DM 10ML PO QID, REMDESIVIR 200MG IV X 1 DOSE, THEN 100MG IV DAILY, ACTEMRA 400MG IV X 1 DOSE, DUONEBS QID, PULMICORT NEBS BID, AND SOLU-MEDROL 125MG IV Q8H. OTHERWISE, WE PLAN TO FOLLOW UP WITH AM LABS AND CONTINUE TO MONITOR. - Past Medical History Past Medical History: FL, Coronary Artery Disease, Hypertension, Dyslipidemia, Anemia, COPD, GERD, Arthritis Additional Medical History: Cataracts, Sinusitis, Bronchitis, Pneumonia, Gallbladder disease, Back Pain, Previous Blood Transfusion, Skin Cancer Forehead - Past Surgical History Surgical History: Appendectomy, Ortho Surgery Additional Surgical History: Skin Cancer Removed, Bilateral Hip Surgery, Right Wrist Surgery, Right Shoulder Surgery - Family History Family Medical History: Cancer, Coronary Artery Disease, Hypertension - Social History Does patient currently use any type of tobacco product: No Have you used tobacco products in the last 12 months: No Type of Tobacco Use: None Alcohol Use: None Drug Use: None - Medications Home Medications: codeine Allergy (Verified 02/06/17 22:08) hydromorphone [From Dilaudid] Allergy (Verified 02/06/17 22:08) influenza virus vaccine qs [id number] (36 mos, up) [From Single Use EZ Flu] Allergy (Verified 03/24/17 18:04) meperidine [From Demerol] Allergy (Verified 02/06/17 22:08) prednisone Allergy (Verified 02/06/17 22:08) CONTINUE taking the following medications acetaminophen [Tylenol Extra Strength] 1,000 mg PO DAILY 12/18/19 [History] ascorbic acid (vitamin C) 500 mg PO DAILY 12/18/19 [History] azithromycin [Zithromax] 500 mg PO DAILY 12/18/19 [History] cholecalciferol (vitamin D3) [Vitamin D3] 125 mcg PO DAILY 12/18/19 [History] clopidogrel [Plavix] 75 mg PO DAILY 12/18/19 [History] diclofenac sodium [Voltaren] 1 % TOPICAL TID PRN 12/18/19 [History] esomeprazole magnesium [Nexium] 40 mg PO DAILY 12/18/19 [History] fluoxetine [Prozac] 20 mg PO DAILY 12/18/19 [History] guaifenesin [Mucinex] 600 mg PO HS 12/18/19 [History] hydrocodone-acetaminophen [[place]] 1 tab PO TID 12/18/19 [History] hydroxychloroquine [Plaquenil] 200 mg PO BID 12/18/19 [History] zinc sulfate 220 mg PO DAILY 12/18/19 [History] - Review of Systems Constitutional: See HPI, Fever, Chills, Weakness Eyes: No Symptoms Reported ENT: No Symptoms Reported Respiratory: See HPI, Cough, Shortness of Breath, SOB with Excertion, Wheezing Cardiovascular: No Symptoms Reported Gastrointestinal: No Symptoms Reported Genitourinary: No Symptoms Reported Musculoskeletal: No Symptoms Reported Skin: No Symptoms Reported Neurological: Weakness - Physical Exam Vital Signs: Temperature 97.4 F Pulse Rate 78 Respiratory Rate 29 Blood Pressure [Left Arm] 120/56 Blood Pressure 162/68 O2 Sat by Pulse Oximetry 93 Oriented: Normal Eyes: Normal Ear: Normal Nose: Normal Throat: Normal Respiratory: Wheezes Throughout Cardiovascular: Normal : Normal Auscultation: Bowel Sounds: Normal Palpation: Normal Tenderness: Normal Skin: Normal Musculoskeletal: Normal Psychiatric: Normal Mood Description: Calm Affect: Normal Speech Pattern: Clear - Assessment/Plan (1) COVID-19 Status: Acute Plan: ADMIT, BIPAP, 1/2NS AT 75 ML/HR, LEVAQUIN 500MG IV DAILY, PLAQUENIL 200MG PO BID, ZINC SULFATE 220MG PO DAILY, ROBITUSSIN DM 10ML PO QID, REMDESIVIR 200MG IV X 1 DOSE, THEN 100MG IV DAILY, ACTEMRA 400MG IV X 1 DOSE, DUONEBS QID, PULMICORT NEBS BID, AND SOLU-MEDROL 125MG IV Q8H. (2) Pneumonia Qualifiers: Pneumonia type: due to unspecified organism Laterality: unspecified laterality Lung location: unspecified part of lung Qualified Code(s): J18.9 - Pneumonia, unspecified organism Status: Acute (3) Hypoxia Status: Acute - Allergies Allergies/Adverse Reactions: Allergies Allergy/AdvReac Type Severity Reaction Status Date / Time codeine Allergy Verified 02/06/17 22:08 hydromorphone [From Dilaudid] Allergy Verified 02/06/17 22:08 influenza virus vaccine qs Allergy Verified 03/24/17 18:04 [id number] (36 mos, up) [From Single Use EZ Flu] meperidine [From Demerol] Allergy Verified 02/06/17 22:08 prednisone Allergy Verified 02/06/17 22:08
[2019-12-18] MEDS ORDERED: REMDESIVIR **DO NOT USE THIS ITEM# ** 200 MG in NS 250 ML IV 250 ML IV ONE (23:00)
[2019-12-18] MEDS ORDERED: REMDESIVIR (INVESTIGATIONAL DRUG GS-5734) IV ONE (23:30)
[2019-12-19] MEDS ORDERED: NS 1/2 1000 ML IV 1,000 ML IV ONE ×2 (03:12→20:39)
[2019-12-19 05:38] LABS: BASOPHILS % (AUTO) 0.1 % (0.2-1.0); HEMATOCRIT 33.1 % (36.0-47.0); LYMPHOCYTES # (AUTO) 0.3 X10^3/uL (1.3-2.9); LYMPHOCYTES % (AUTO) 8.6 % (21.0-51.0); MEAN CORPUSCULAR HEMOGLOBIN 30.4 pg (27.0-34.0); MEAN CORPUSCULAR HGB CONC 33.1 g/dL (33.0-35.0); MEAN CORPUSCULAR VOLUME 91.9 fL (80.0-100.0); MEAN PLATELET VOLUME 6.9 fL (7.4-11.0); MONOCYTES # (AUTO) 0.2 x10^3/uL (0.3-0.8); MONOCYTES % (AUTO) 4.1 % (0.0-13.0); NEUTROPHILS # (AUTO) 3.2 x10^3/uL (2.2-4.8); NEUTROPHILS % (AUTO) 87.2 % (42.0-75.0); PLATELET COUNT 290 X10^3/uL (150.0-450.0); RED CELL DISTRIBUTION WIDTH 14.4 % (11.6-16.5); WHITE BLOOD COUNT 3.7 X10^3/uL (3.6-10.0)
[2019-12-19 05:52] LABS: ABG BASE EXCESS 4.8 mmol/L (-2.0-2.0)
[2019-12-19 05:53] LABS: ABG ALLEN TEST POS; ABG HCO3 30.9 mmol/L (22-26)
[2019-12-19 05:55] LABS: ALANINE AMINOTRANSFERASE 21 Units/L (12-78); ALKALINE PHOSPHATASE 68 Units/L (46-116); ASPARTATE AMINO TRANSFERASE 31 Units/L (15-37); BLOOD UREA NITROGEN 18 mg/dL (7-18); CALCIUM 7.6 mg/dL (8.5-10.1); CARBON DIOXIDE 29.5 mmol/L (21-32); CHLORIDE 99 mmol/L (98-107); COR CA(FOR HYPOALB) 9.2 mg/dL (8.5-10.1); COR NA(FOR HYPERGLY) 135 mmol/L (136-145); CREATININE 1.04 mg/dL (0.55-1.02); SODIUM 134 mmol/L (136-145); eGFR NON BLACK RACES 54 (>60)
[2019-12-19] MEDS: NORCO 7.5/325 MG TAB PO SCH ×3 (06:46→21:30)
[2019-12-19] MEDS: NEURONTIN CAP 300 MG PO SCH ×3 (06:47→21:30)
[2019-12-19] MEDS: SOLU-Medrol 125 MG VIAL IVP SCH ×3 (06:47→21:30)
--- NOTE | 2019-12-19 06:59 | RAD ---
HISTORYSOB pneumoniaSTUDYPortable AP [id number] cardiomegaly. Persistent bilateral confluent airspace disease, similar and unchanged on the right and slight improvement on the left. There is no evidence for complicating pneumothorax. No large pleural effusion is noted.IMPRESSIONPersistent cardiomegaly and bilateral pneumonia with slight apparent improvement in the left lung since 1 day prior.Electronically signed by: VILLA PLEITEZ (Dec 19, 2019 06:58:58)
[2019-12-19] MEDS: DUONEB 0.5 MG/3 MG (3 mL) NEB SCH ×4 (08:15→20:45)
[2019-12-19] MEDS: PULMICORT NEB TX 0.5 MG NEB SCH ×2 (08:15→20:45)
[2019-12-19] MEDS: PLAVIX PO SCH (08:35)
[2019-12-19] MEDS: COLACE CAP 100 MG PO SCH ×2 (08:35→21:30)
[2019-12-19] MEDS: COREG TAB 12.5 MG PO SCH ×2 (08:40→21:30)
[2019-12-19] MEDS: NS 1/2 1000 ML IV 1,000 ML IV SCH ×2 (08:40→21:30)
[2019-12-19] MEDS: PROzac PO SCH (08:40)
[2019-12-19] MEDS: LEVAQUIN PREMIX IV 500 MG 500 MG/100 ML BAG IV SCH (08:40)
[2019-12-19] MEDS: ZINC SULFATE PO SCH (08:40)
[2019-12-19] MEDS: VITAMIN D3 125 mcg (5,000 UNITS) PO SCH (08:40)
[2019-12-19] MEDS: VSL#3 PO SCH (08:40)
[2019-12-19] MEDS: SINGULAIR TAB 10 MG PO SCH (08:40)
[2019-12-19] MEDS: VITAMIN C PO SCH (08:40)
[2019-12-19] MEDS: POTASSIUM CHLORIDE LIQ 20 MEQ UDC PO SCH (08:40)
[2019-12-19] MEDS: CALCIUM CARBONATE VITAMIN D3 PO SCH ×2 (09:30→21:30)
[2019-12-19] MEDS: CLARITIN PO SCH (09:35)
[2019-12-19] MEDS: CELEBREX PO SCH (09:35)
[2019-12-19] MEDS: FOLIC ACID TAB 1 MG PO SCH (10:15)
[2019-12-19] MEDS: TAB-A-VITE PO SCH (10:15)
[2019-12-19] MEDS: NexIUM PO SCH (10:20)
[2019-12-19] MEDS: PATIENT'S HOME MEDICATION (Ferrous Fumarate [Ferrocite] 324 MG) PO SCH (12:09)
[2019-12-19] MEDS: ROBITUSSIN DM PO SCH ×4 (12:11→21:30)
[2019-12-19] MEDS: FORTAZ or TAZICEF VIAL INJ 1 G in NS 100 ML IV + SPIKE MINIBAG* 100 ML IV SCH ×3 (12:30→21:30)
[2019-12-19] MEDS ORDERED: MORPHINE SULFATE INJ 2 MG INJ IVP PRN (17:30)
[2019-12-19] MEDS ORDERED: REMDESIVIR (INVESTIGATIONAL DRUG GS-5734) IV ONE (20:00)
[2019-12-19] MEDS: REMDESIVIR **DO NOT USE THIS ITEM# ** 100 MG in NS 250 ML IV 250 ML IV SCH (21:00)
[2019-12-19] MEDS: XARELTO PO SCH (21:30)
[2019-12-19] MEDS: CRESTOR TAB 10 MG PO SCH (21:30)
[2019-12-19] MEDS: MUCINEX EXPECTORANT PO SCH (21:30)
[2019-12-19] MEDS: KLONOPIN TAB 1 MG PO SCH (21:30)
[2019-12-20 04:35] LABS: ABG HCO3 29.7 mmol/L (22-26)
[2019-12-20 04:36] LABS: ABG ALLEN TEST POS
[2019-12-20 05:15] LABS: BASOPHILS % (AUTO) 0.2 % (0.2-1.0); HEMATOCRIT 34.1 % (36.0-47.0); HEMOGLOBIN 11.3 g/dL (12.0-16.0); LYMPHOCYTES # (AUTO) 0.3 X10^3/uL (1.3-2.9); LYMPHOCYTES % (AUTO) 4.7 % (21.0-51.0); MEAN CORPUSCULAR HEMOGLOBIN 30.7 pg (27.0-34.0); MEAN CORPUSCULAR HGB CONC 33.1 g/dL (33.0-35.0); MEAN CORPUSCULAR VOLUME 92.7 fL (80.0-100.0); MEAN PLATELET VOLUME 6.8 fL (7.4-11.0); MONOCYTES # (AUTO) 0.2 x10^3/uL (0.3-0.8); MONOCYTES % (AUTO) 2.8 % (0.0-13.0); NEUTROPHILS # (AUTO) 5.8 x10^3/uL (2.2-4.8); NEUTROPHILS % (AUTO) 92.3 % (42.0-75.0); PLATELET COUNT 317 X10^3/uL (150.0-450.0); RED BLOOD COUNT 3.68 X10^6/uL (3.5-5.4); RED CELL DISTRIBUTION WIDTH 14.5 % (11.6-16.5); WHITE BLOOD COUNT 6.3 X10^3/uL (3.6-10.0)
[2019-12-20 05:30] LABS: ALANINE AMINOTRANSFERASE 33 Units/L (12-78); ALKALINE PHOSPHATASE 66 Units/L (46-116); ASPARTATE AMINO TRANSFERASE 44 Units/L (15-37); BLOOD UREA NITROGEN 23 mg/dL (7-18); CALCIUM 7.5 mg/dL (8.5-10.1); CARBON DIOXIDE 29.5 mmol/L (21-32); CHLORIDE 100 mmol/L (98-107); COR CA(FOR HYPOALB) 9.1 mg/dL (8.5-10.1); COR NA(FOR HYPERGLY) 136 mmol/L (136-145); CREATININE 1.04 mg/dL (0.55-1.02); SODIUM 135 mmol/L (136-145); eGFR NON BLACK RACES 54 (>60)
[2019-12-20] MEDS: FORTAZ or TAZICEF VIAL INJ 1 G in NS 100 ML IV + SPIKE MINIBAG* 100 ML IV SCH ×3 (05:32→22:55)
[2019-12-20] MEDS: NEURONTIN CAP 300 MG PO SCH ×3 (05:33→22:51)
[2019-12-20] MEDS: NORCO 7.5/325 MG TAB PO SCH ×3 (05:33→21:30)
[2019-12-20] MEDS: SOLU-Medrol 125 MG VIAL IVP SCH ×3 (05:34→22:51)
[2019-12-20 05:58] LABS: BAND NEUTROPHILS % 3 % (0-10); PLATELET MORPHOLOGY COMMENT NORMAL (NORMAL)
--- NOTE | 2019-12-20 06:20 | RAD ---
HISTORYShortness of breathSTUDYChest AP [id number]/02/2020FINDINGSThe heart remains enlarged. Bilateral perihilar right upper lobe, right lower lobe, and left lower lobe infiltrates not significantly changed from the prior examination. No pleural effusions are identified. Bony thorax is unremarkable with the exception of a right shoulder arthroplastyIMPRESSIONNo significant change bilateral infiltrates when compared to the prior examinationElectronically signed by: MARY ELLEN CORRAL (Dec 20, 2019 06:19:48)
[2019-12-20] MEDS: PLAQUENIL PO SCH (07:26)
[2019-12-20] MEDS ORDERED: TUMS ONE (09:18)
[2019-12-20] MEDS: PULMICORT NEB TX 0.5 MG NEB SCH ×2 (09:30→21:20)
[2019-12-20] MEDS: DUONEB 0.5 MG/3 MG (3 mL) NEB SCH ×4 (09:30→21:20)
[2019-12-20] MEDS: CELEBREX PO SCH (09:35)
[2019-12-20] MEDS: VSL#3 PO SCH (09:35)
[2019-12-20] MEDS: CLARITIN PO SCH (09:37)
[2019-12-20] MEDS: VITAMIN D3 125 mcg (5,000 UNITS) PO SCH (09:37)
[2019-12-20] MEDS: LEVAQUIN PREMIX IV 500 MG 500 MG/100 ML BAG IV SCH (09:38)
[2019-12-20] MEDS: COREG TAB 12.5 MG PO SCH ×2 (09:38→21:30)
[2019-12-20] MEDS: FOLIC ACID TAB 1 MG PO SCH (09:38)
[2019-12-20] MEDS: COLACE CAP 100 MG PO SCH ×2 (09:38→22:50)
[2019-12-20] MEDS: POTASSIUM CHLORIDE LIQ 20 MEQ UDC PO SCH (09:39)
[2019-12-20] MEDS: PLAVIX PO SCH (09:39)
[2019-12-20] MEDS: NexIUM PO SCH (09:39)
[2019-12-20] MEDS: PROzac PO SCH (09:40)
[2019-12-20] MEDS: SINGULAIR TAB 10 MG PO SCH (09:40)
[2019-12-20] MEDS: ROBITUSSIN DM PO SCH ×4 (09:40→21:30)
[2019-12-20] MEDS: VITAMIN C PO SCH (09:41)
[2019-12-20] MEDS: TAB-A-VITE PO SCH (09:41)
[2019-12-20] MEDS: ZINC SULFATE PO SCH (09:41)
[2019-12-20] MEDS: LASIX PO SCH (09:41)
[2019-12-20] MEDS: PATIENT'S HOME MEDICATION (Ferrous Fumarate [Ferrocite] 324 MG) PO SCH (11:35)
[2019-12-20] MEDS: CALCIUM CARBONATE VITAMIN D3 PO SCH ×2 (11:35→21:00)
[2019-12-20] MEDS: MORPHINE SULFATE INJ 2 MG INJ IVP SCH ×4 (11:50→22:35)
--- NOTE | 2019-12-20 13:43 | PCM.PROG ---
Progress Note - Progress Note for Day of Date of Exam: 12/19/19 - Subjective Subjective: IS BEING TREATED FOR PNEUMONIA DUE TO COVID-19, PNEUMONIA, AND HYPOXIA. TODAY, SHE IS ALERT AND ORIENTED, LYING IN BED ON MORNING ROUNDS. SHE CONTINUES WITH SHORTNESS OF BREATH AND COUGH TODAY. SHE DENIES IMPROVEMENT INS YMPTOMS SINCE PREVIOUS DAY. SHE REMAINS ON THE BIPAP TODAY. ON EXAMINATION, HEART IS REGULAR IN RATE AND RHYTHM. BILATERAL LUNGS ARE NOTED WITH SCATTERED WHEEZING AND RHONCHI THROUGHOUT. ABDOMEN IS ROUND, SOFT, AND NON-TENDER WITH NORMAL BOWEL SOUNDS NOTED IN ALL QUADRANTS. HER VITALS THIS MORNING ARE: 98.6-80-21-90%BIPAP-120/53. LABS WERE OBTAINED. ABNORMAL LAB VALUES INCLUDE THE FOLLOWING: HGB 11.0, HCT 33.1, SODIUM 134, CREATININE 1.04, GLUCOS 137, CALCIUM 7.6, FERRITIN 609, CRP 113.40, TOTAL PROTEIN 6.0, ALBUMIN 2.0. AN ABG WAS REPEATED THIS MORNING AND REVEALED: PH 7.390, PC02 51.0, P02 63.0, HC03 30.9, 02 SATURATION 92.0, BASE EXCESS 4.8, FI02 100.0. BLOOD AND SPUTUM CULTURES ARE PENDING. A CHEST XRAY WAS OBTAINED AND REVEALED: Persistent cardiomegaly and bilateral pneumonia with slight apparent improvement in the left lung since 1 day prior. SHE IS CURRENTLY RECEIVING 1/2NS AT 75 ML/HR, LEVAQUIN 500MG IV DAILY, ZINC SULFATE 220MG PO DAILY, ROBITUSSIN DM 10ML PO QID, REMDESIVIR 100MG IV DAILY, DUONEBS QID, PULMICORT NEBS BID, AND SOLU-MEDROL 125MG IV Q8H. WE WILL CONTINUE WITH CURRENT PLAN OF CARE TODAY. OTHERWISE, WE PLAN TO FOLLOW UP WITH AM LABS AND CONTINUE TO MONITOR. - Past Medical Family Social History Past Med/Fam/Surg Hx: No changes since H&P Allergies: Allergies codeine Allergy (Verified 02/06/17 22:08) hydromorphone [From Dilaudid] Allergy (Verified 02/06/17 22:08) influenza virus vaccine qs [id number] (36 mos, up) [From Single Use EZ Flu] Allergy (Verified 03/24/17 18:04) meperidine [From Demerol] Allergy (Verified 02/06/17 22:08) prednisone Allergy (Verified 02/06/17 22:08) - Review of Systems ROS: No change since H&P - Vital Signs and I&O's Vital Signs: Temperature 99.3 F Pulse Rate 73 Respiratory Rate 28 Blood Pressure [Left Arm] 120/56 Blood Pressure 122/56 O2 Sat by Pulse Oximetry 89 Intake and Output: Intake & Output 12/18/19 12/19/19 12/20/19 12/21/19 11:59 11:59 11:59 11:59 Intake Total 1483 / 1483 1630 / 1630 2764 / 2764 Output Total 200 / 200 1000 / 1000 1375 / 1375 Balance 1283 / 1283 630 / 630 1389 / 1389 - Physical Exam Oriented: Normal Eyes: Normal Ear: Normal Nose: Normal Throat: Normal Cardiovascular: Normal : Normal Auscultation: Bowel Sounds: Normal Tenderness: Normal Skin: Normal Musculoskeletal: Normal Psychiatric: Normal Mood Description: Calm Affect: Normal Speech Pattern: Clear, Delayed - Laboratory and Diagnostics Result Diagrams: 12/20/19 04:16 12/20/19 04:16 Labs: 12/17/19 16:30 Sputum - Expectorated Sputum Sputum Culture - Final Escherichia Coli Methicillin Resis Staph Aureus 12/17/19 16:30 Sputum - Expectorated Sputum - Final 12/17/19 15:03 Blood Blood Culture - Preliminary 12/17/19 15:00 Blood Blood Culture - Preliminary Laboratory WBC 6.3 X10^3/uL (3.6-10.0) 12/20/19 04:16 RBC 3.68 X10^6/uL (3.5-5.4) 12/20/19 04:16 Hgb 11.3 g/dL (12.0-16.0) L 12/20/19 04:16 Hct 34.1 % (36.0-47.0) L 12/20/19 04:16 MCV 92.7 fL (80.0-100.0) 12/20/19 04:16 MCH 30.7 pg (27.0-34.0) 12/20/19 04:16 MCHC 33.1 g/dL (33.0-35.0) 12/20/19 04:16 RDW 14.5 % (11.6-16.5) 12/20/19 04:16 Plt Count 317 X10^3/uL (150.0-450.0) 12/20/19 04:16 Plt Count Comment Adequate (ADEQUATE) 12/20/19 04:16 MPV 6.8 fL (7.4-11.0) L 12/20/19 04:16 Neut % (Auto) 92.3 % (42.0-75.0) H 12/20/19 04:16 Lymph % (Auto) 4.7 % (21.0-51.0) L 12/20/19 04:16 [place] % (Auto) 2.8 % (0.0-13.0) 12/20/19 04:16 Eos % (Auto) 0.0 % (0.9-2.9) L 12/20/19 04:16 Baso % (Auto) 0.2 % (0.2-1.0) 12/20/19 04:16 Neut # (Auto) 5.8 x10^3/uL (2.2-4.8) H 12/20/19 04:16 Lymph # (Auto) 0.3 X10^3/uL (1.3-2.9) L 12/20/19 04:16 [place] # (Auto) 0.2 x10^3/uL (0.3-0.8) L 12/20/19 04:16 Eos # (Auto) 0.0 x10^3/uL (0.0-0.2) 12/20/19 04:16 Baso # (Auto) 0.0 X10^3/uL (0.0-0.1) 12/20/19 04:16 Absolute Nucleated RBC 0.2 /100WBC 12/20/19 04:16 Total Counted 100 12/20/19 04:16 Neutrophils % (Manual) 90 % (39-76) H 12/20/19 04:16 Band Neutrophils % 3 % (0-10) 12/20/19 04:16 Lymphocytes % (Manual) 4 % (13-43) L 12/20/19 04:16 Monocytes % (Manual) 3 % (4-9) L 12/20/19 04:16 Plt Morphology Comment Normal (NORMAL) 12/20/19 04:16 RBC Morphology Normal (NORMAL) 12/20/19 04:16 Sample Site Lr 12/20/19 05:00 ABG pH 7.400 (7.35-7.45) 12/20/19 05:00 ABG pCO2 48.0 mmHg (35.0-45.0) H 12/20/19 05:00 ABG pO2 54.0 mmHg (80.0-100.0) L 12/20/19 05:00 ABG HCO3 29.7 mmol/L (22-26) H 12/20/19 05:00 ABG O2 Saturation 88.0 % (90-100) L 12/20/19 05:00 ABG Base Excess 4.0 mmol/L (-2.0-2.0) H 12/20/19 05:00 Triston Test Pos 12/20/19 05:00 A-a Gradient 599.0 mmHg 12/20/19 05:00 FiO2 100.0 12/20/19 05:00 Blood Gas Comments Quinten well ae 12/20/19 05:00 Sodium 135 mmol/L (136-145) L 12/20/19 04:16 Corrected Sodium 136 mmol/L (136-145) 12/20/19 04:16 Potassium 4.6 mmol/L (3.5-5.1) 12/20/19 04:16 Chloride 100 mmol/L (98-107) 12/20/19 04:16 Carbon Dioxide 29.5 mmol/L (21-32) 12/20/19 04:16 BUN 23 mg/dL (7-18) H 12/20/19 04:16 Creatinine 1.04 mg/dL (0.55-1.02) H 12/20/19 04:16 Est GFR (MDRD) Af Amer > 60 (>60) 12/20/19 04:16 Est GFR (MDRD) Non-Af 54 (>60) L 12/20/19 04:16 Glucose 141 mg/dL (65-99) H 12/20/19 04:16 Calcium 7.5 mg/dL (8.5-10.1) L 12/20/19 04:16 Corrected Calcium 9.1 mg/dL (8.5-10.1) 12/20/19 04:16 Ferritin 630 ng/mL (8-252) H 12/20/19 04:16 Total Bilirubin 0.30 mg/dL (0.2-1.0) 12/20/19 04:16 AST 44 Units/L (15-37) H 12/20/19 04:16 ALT 33 Units/L (12-78) 12/20/19 04:16 Alkaline Phosphatase 66 Units/L (46-116) 12/20/19 04:16 C-Reactive Protein 63.00 mg/L (0-3.0) H 12/20/19 04:16 Total Protein 6.0 g/dL (6.4-8.2) L 12/20/19 04:16 Albumin 2.0 g/dL (3.4-5.0) L 12/20/19 04:16 Globulin 4.0 g/dL (2.5-4.5) 12/20/19 04:16 Albumin/Globulin Ratio 0.5 Ratio (1.1-2.1) L 12/20/19 04:16 Specimen Type Catherized urine 12/18/19 11:45 Urine Color Pale yellow (YELLOW) 12/18/19 11:45 Urine Appearance Clear (CLEAR) 12/18/19 11:45 Urine pH 6.0 (5.0 - 8.0) 12/18/19 11:45 Ur Specific [place] 1.015 (1.000-1.030) 12/18/19 11:45 Urine Protein 3+ (NEGATIVE) 12/18/19 11:45 Urine Glucose (UA) Negative (NEGATIVE) 12/18/19 11:45 Urine Ketones 3+ (NEGATIVE) 12/18/19 11:45 Urine Occult Blood 2+ (NEGATIVE) 12/18/19 11:45 Urine Nitrite Negative (NEGATIVE) 12/18/19 11:45 Urine Bilirubin Negative (NEGATIVE) 12/18/19 11:45 Urine Urobilinogen Normal (NORMAL) 12/18/19 11:45 Ur Leukocyte Esterase Negative (NEGATIVE) 12/18/19 11:45 Urine RBC 0-2 /HPF (0-3) 12/18/19 11:45 Urine WBC None seen /HPF (0-5) 12/18/19 11:45 Ur Squamous Epith Cells Negative /HPF (NEGATIVE) 12/18/19 11:45 Amorphous Sediment Trace /HPF (NEGATIVE) 12/18/19 11:45 Urine Bacteria Negative /HPF (NEGATIVE) 12/18/19 11:45 Granular Casts Rare /LPF (NEGATIVE) 12/18/19 11:45 Urine Mucus Few /HPF (NEGATIVE) 12/18/19 11:45 Ur Culture Indicated? No/not indicated 12/18/19 11:45 - Plan (1) COVID-19 Status: Acute Plan: ADMIT, BIPAP, 1/2NS AT 75 ML/HR, LEVAQUIN 500MG IV DAILY, PLAQUENIL 200MG PO BID, ZINC SULFATE 220MG PO DAILY, ROBITUSSIN DM 10ML PO QID, REMDESIVIR 200MG IV X 1 DOSE, THEN 100MG IV DAILY, ACTEMRA 400MG IV X 1 DOSE, DUONEBS QID, PULMICORT NEBS BID, AND SOLU-MEDROL 125MG IV Q8H. (2) Pneumonia Status: Acute Qualifiers: Pneumonia type: due to unspecified organism Laterality: unspecified laterality Lung location: unspecified part of lung Qualified Code(s): J18.9 - Pneumonia, unspecified organism (3) Hypoxia Status: Acute
[2019-12-20] MEDS ORDERED: NS 1/2 1000 ML IV 1,000 ML IV ONE (14:26)
[2019-12-20] MEDS: NS 1/2 1000 ML IV 1,000 ML IV SCH (14:31)
[2019-12-20 15:17] LABS: ABG BASE EXCESS 5.1 mmol/L (-2.0-2.0)
[2019-12-20 15:18] LABS: ABG ALLEN TEST POS; ABG HCO3 30.5 mmol/L (22-26)
[2019-12-20] MEDS ORDERED: MILK OF MAGNESIA PO PRN (15:49)
[2019-12-20] MEDS ORDERED: REMDESIVIR (INVESTIGATIONAL DRUG GS-5734) IV ONE (20:00)
[2019-12-20] MEDS: KLONOPIN TAB 1 MG PO SCH (21:30)
[2019-12-20] MEDS: CRESTOR TAB 10 MG PO SCH (21:30)
[2019-12-20] MEDS: MUCINEX EXPECTORANT PO SCH (21:30)
[2019-12-20] MEDS: XARELTO PO SCH (21:30)
[2019-12-20] MEDS: REMDESIVIR **DO NOT USE THIS ITEM# ** 100 MG in NS 250 ML IV 250 ML IV SCH (23:00)
[2019-12-21] MEDS: MORPHINE SULFATE INJ 2 MG INJ IVP SCH ×5 (03:14→18:50)
[2019-12-21] MEDS: NS 1/2 1000 ML IV 1,000 ML IV SCH ×3 (03:15→18:49)
[2019-12-21 05:07] LABS: BASOPHILS % (AUTO) 0.3 % (0.2-1.0); HEMATOCRIT 34.7 % (36.0-47.0); HEMOGLOBIN 11.3 g/dL (12.0-16.0); LYMPHOCYTES # (AUTO) 0.3 X10^3/uL (1.3-2.9); LYMPHOCYTES % (AUTO) 3.4 % (21.0-51.0); MEAN CORPUSCULAR HEMOGLOBIN 29.3 pg (27.0-34.0); MEAN CORPUSCULAR HGB CONC 32.5 g/dL (33.0-35.0); MEAN CORPUSCULAR VOLUME 90.3 fL (80.0-100.0); MEAN PLATELET VOLUME 6.8 fL (7.4-11.0); MONOCYTES # (AUTO) 0.3 x10^3/uL (0.3-0.8); MONOCYTES % (AUTO) 2.9 % (0.0-13.0); NEUTROPHILS % (AUTO) 93.4 % (42.0-75.0); PLATELET COUNT 322 X10^3/uL (150.0-450.0); RED BLOOD COUNT 3.84 X10^6/uL (3.5-5.4); RED CELL DISTRIBUTION WIDTH 14.5 % (11.6-16.5); WHITE BLOOD COUNT 8.5 X10^3/uL (3.6-10.0)
[2019-12-21] MEDS: NORCO 7.5/325 MG TAB PO SCH ×3 (05:17→21:30)
[2019-12-21] MEDS: SOLU-Medrol 125 MG VIAL IVP SCH ×3 (05:17→21:24)
[2019-12-21] MEDS: FORTAZ or TAZICEF VIAL INJ 1 G in NS 100 ML IV + SPIKE MINIBAG* 100 ML IV SCH (05:17)
[2019-12-21] MEDS: NEURONTIN CAP 300 MG PO SCH ×3 (05:18→21:30)
[2019-12-21 05:23] LABS: ALANINE AMINOTRANSFERASE 35 Units/L (12-78); ALBUMIN 2.1 g/dL (3.4-5.0); ALKALINE PHOSPHATASE 71 Units/L (46-116); ASPARTATE AMINO TRANSFERASE 52 Units/L (15-37); BLOOD UREA NITROGEN 24 mg/dL (7-18); CALCIUM 7.5 mg/dL (8.5-10.1); CARBON DIOXIDE 29.1 mmol/L (21-32); CHLORIDE 102 mmol/L (98-107); COR NA(FOR HYPERGLY) 137 mmol/L (136-145); CREATININE 1.04 mg/dL (0.55-1.02); SODIUM 136 mmol/L (136-145); eGFR NON BLACK RACES 54 (>60)
[2019-12-21 06:04] LABS: ABG BASE EXCESS 4.4 mmol/L (-2.0-2.0)
[2019-12-21 06:06] LABS: ABG ALLEN TEST POS; ABG HCO3 31.1 mmol/L (22-26)
[2019-12-21 06:07] LABS: BAND NEUTROPHILS % 2 % (0-10); PLATELET MORPHOLOGY COMMENT NORMAL (NORMAL)
--- NOTE | 2019-12-21 06:12 | RAD ---
HISTORYSOBSTUDYCHEST, 1 [id number] trachea is midline. The cardiac silhouette is slightly enlarged. Her is. Bilateral perihilar right upper and lower and left lower lobe infiltrates, unchanged. No pleural effusion or pneumothorax.. The bony thorax is unremarkable.IMPRESSIONStable portable chestElectronically signed by: Santiago Dallas (Dec 21, 2019 06:11:19)
[2019-12-21] MEDS: ROBITUSSIN DM PO SCH ×5 (07:33→21:14)
[2019-12-21] MEDS: PULMICORT NEB TX 0.5 MG NEB SCH ×2 (09:10→21:05)
[2019-12-21] MEDS: DUONEB 0.5 MG/3 MG (3 mL) NEB SCH ×4 (09:10→21:05)
[2019-12-21] MEDS: CALCIUM CARBONATE VITAMIN D3 PO SCH (09:44)
[2019-12-21] MEDS: CLARITIN PO SCH (09:45)
[2019-12-21] MEDS: COREG TAB 12.5 MG PO SCH ×2 (09:45→21:13)
[2019-12-21] MEDS: COLACE CAP 100 MG PO SCH ×2 (09:45→21:16)
[2019-12-21] MEDS: CELEBREX PO SCH (09:45)
[2019-12-21] MEDS: PATIENT'S HOME MEDICATION (Ferrous Fumarate [Ferrocite] 324 MG) PO SCH (09:45)
[2019-12-21] MEDS: LEVAQUIN PREMIX IV 500 MG 500 MG/100 ML BAG IV SCH (09:46)
[2019-12-21] MEDS: FOLIC ACID TAB 1 MG PO SCH (09:46)
[2019-12-21] MEDS: POTASSIUM CHLORIDE LIQ 20 MEQ UDC PO SCH (09:47)
[2019-12-21] MEDS: PLAVIX PO SCH (09:47)
[2019-12-21] MEDS: NexIUM PO SCH (09:47)
[2019-12-21] MEDS: VITAMIN C PO SCH (09:48)
[2019-12-21] MEDS: TAB-A-VITE PO SCH (09:48)
[2019-12-21] MEDS: PROzac PO SCH (09:48)
[2019-12-21] MEDS: SINGULAIR TAB 10 MG PO SCH (09:48)
[2019-12-21] MEDS: ZINC SULFATE PO SCH (09:49)
[2019-12-21] MEDS: VITAMIN D3 125 mcg (5,000 UNITS) PO SCH (09:49)
[2019-12-21] MEDS: VSL#3 PO SCH (09:49)
[2019-12-21] MEDS ORDERED: PHARMACY CONSULT - VANCOMYCIN XX SCH (10:00)
[2019-12-21] MEDS: VANCOMYCIN HCL 250 MG, VANCOMYCIN HCL 1 G in D5W 250 ML IV 250 ML IV SCH ×2 (10:42→21:30)
[2019-12-21] MEDS: INVANZ INJ 1 GM VIAL 1 GM in NS 100 ML IV + SPIKE MINIBAG* 100 ML IV SCH (12:50)
[2019-12-21] MEDS ORDERED: NS 1/2 1000 ML IV 1,000 ML IV ONE (14:29)
--- NOTE | 2019-12-21 18:37 | PCM.PROG ---
Progress Note - Progress Note for Day of Date of Exam: 12/20/19 - Subjective Subjective: IS BEING TREATED FOR PNEUMONIA DUE TO COVID-19, PNEUMONIA, AND HYPOXIA. TODAY, SHE IS ALERT AND ORIENTED, LYING IN BED ON MORNING ROUNDS. SHE CONTINUES WITH SHORTNESS OF BREATH AND COUGH TODAY. SHE REPORTS INCREASE IN SHORTNESS OF BREATH. HER BREATHING APPEARS LABORED AND SHE IS ONLY ABLE TO SPEAK A FEW WORDS AT THE TIME WITHOUT HAVING TO STOP TO CATCH HER BREATH. SHE REMAINS ON THE BIPAP TODAY. ON EXAMINATION, HEART IS REGULAR IN RATE AND RHYTHM. BILATERAL LUNGS ARE NOTED WITH SCATTERED WHEEZING AND RHONCHI THROUGHOUT. ABDOMEN IS ROUND, SOFT, AND NON-TENDER WITH NORMAL BOWEL SOUNDS NOTED IN ALL QUADRANTS. HER VITALS THIS MORNING ARE: 99.0-83-24-89%BIPAP-124/58. LABS WERE OB TAINED. ABNORMAL LAB VALUES INCLUDE THE FOLLOWING: HGB 11.3, HCT 34.1, SODIUM 135, BUN 23, CREATININE 1.04, GLUCOSE 141, CALCIUM 7.5, FERRITIN 630, AST 44, CRP 63.0, TOTAL PROTEIN 6.0, ALBUMIN 2.0. AN ABG WAS REPEATED THIS MORNING AND REVEALED: PH 7.420, PC02 47.0, P02 60.0, HC03 30.5, 02 SATURATION 91.0, BASE EXCESS 5.1, FI02 100.0. BLOOD AND SPUTUM CULTURES ARE PENDING. A CHEST XRAY WAS OBTAINED AND REVEALED: heart remains enlarged. Bilateral perihilar right upper lobe, right lower lobe, and left lower lobe infiltrates not significantly changed from the prior examination. No pleural effusions are identified. Bony thorax is unremarkable with the exception of a right shoulder arthroplasty. SHE IS CURRENTLY RECEIVING 1/2NS AT 75 ML/HR, LEVAQUIN 500MG IV DAILY, ZINC SULFATE 220MG PO DAILY, ROBITUSSIN DM 10ML PO QID, REMDESIVIR 100MG IV DAILY, DUONEBS QID, PULMICORT NEBS BID, AND SOLU-MEDROL 125MG IV Q8H. WE WILL CONTINUE WITH CURRENT PLAN OF CARE TODAY. OTHERWISE, WE PLAN TO FOLLOW UP WITH AM LABS AND CONTINUE TO MONITOR. - Past Medical Family Social History Past Med/Fam/Surg Hx: No changes since H&P Allergies: Allergies codeine Allergy (Verified 02/06/17 22:08) hydromorphone [From Dilaudid] Allergy (Verified 02/06/17 22:08) influenza virus vaccine qs [id number] (36 mos, up) [From Single Use EZ Flu] Allergy (Verified 03/24/17 18:04) meperidine [From Demerol] Allergy (Verified 02/06/17 22:08) prednisone Allergy (Verified 02/06/17 22:08) - Review of Systems ROS: No change since H&P - Vital Signs and I&O's Vital Signs: Temperature 98.2 F Pulse Rate 70 Respiratory Rate 18 Blood Pressure [Left Arm] 120/56 Blood Pressure 121/55 O2 Sat by Pulse Oximetry 90 Intake and Output: Intake & Output 12/19/19 12/20/19 12/21/19 12/22/19 11:59 11:59 11:59 11:59 Intake Total 1630 / 1630 2764 / 2764 1945 / 1945 Output Total 1000 / 1000 1375 / 1375 1100 / 1100 Balance 630 / 630 1389 / 1389 845 / 845 - Physical Exam Oriented: Normal Eyes: Normal Ear: Normal Nose: Normal Throat: Normal Cardiovascular: Normal : Normal Auscultation: Bowel Sounds: Normal Tenderness: Normal Skin: Normal Musculoskeletal: Normal Psychiatric: Normal Mood Description: Calm Affect: Normal Speech Pattern: Clear, Delayed - Laboratory and Diagnostics Result Diagrams: 12/21/19 04:33 12/21/19 04:33 Labs: 12/17/19 16:30 Sputum - Expectorated Sputum Sputum Culture - Final Escherichia Coli Methicillin Resis Staph Aureus 12/17/19 16:30 Sputum - Expectorated Sputum - Final 12/17/19 15:03 Blood Blood Culture - Preliminary 12/17/19 15:00 Blood Blood Culture - Preliminary Laboratory WBC 8.5 X10^3/uL (3.6-10.0) 12/21/19 04:33 RBC 3.84 X10^6/uL (3.5-5.4) 12/21/19 04:33 Hgb 11.3 g/dL (12.0-16.0) L 12/21/19 04:33 Hct 34.7 % (36.0-47.0) L 12/21/19 04:33 MCV 90.3 fL (80.0-100.0) 12/21/19 04:33 MCH 29.3 pg (27.0-34.0) 12/21/19 04:33 MCHC 32.5 g/dL (33.0-35.0) L 12/21/19 04:33 RDW 14.5 % (11.6-16.5) 12/21/19 04:33 Plt Count 322 X10^3/uL (150.0-450.0) 12/21/19 04:33 Plt Count Comment Adequate (ADEQUATE) 12/21/19 04:33 MPV 6.8 fL (7.4-11.0) L 12/21/19 04:33 Neut % (Auto) 93.4 % (42.0-75.0) H 12/21/19 04:33 Lymph % (Auto) 3.4 % (21.0-51.0) L 12/21/19 04:33 [place] % (Auto) 2.9 % (0.0-13.0) 12/21/19 04:33 Eos % (Auto) 0.0 % (0.9-2.9) L 12/21/19 04:33 Baso % (Auto) 0.3 % (0.2-1.0) 12/21/19 04:33 Neut # (Auto) 8.0 x10^3/uL (2.2-4.8) H 12/21/19 04:33 Lymph # (Auto) 0.3 X10^3/uL (1.3-2.9) L 12/21/19 04:33 [place] # (Auto) 0.3 x10^3/uL (0.3-0.8) 12/21/19 04:33 Eos # (Auto) 0.0 x10^3/uL (0.0-0.2) 12/21/19 04:33 Baso # (Auto) 0.0 X10^3/uL (0.0-0.1) 12/21/19 04:33 Absolute Nucleated RBC 0.1 /100WBC 12/21/19 04:33 Total Counted 100 12/21/19 04:33 Neutrophils % (Manual) 86 % (39-76) H 12/21/19 04:33 Band Neutrophils % 2 % (0-10) 12/21/19 04:33 Lymphocytes % (Manual) 6 % (13-43) L 12/21/19 04:33 Monocytes % (Manual) 6 % (4-9) 12/21/19 04:33 Plt Morphology Comment Normal (NORMAL) 12/21/19 04:33 RBC Morphology Normal (NORMAL) 12/21/19 04:33 Sample Site Lr 12/21/19 05:00 ABG pH 7.360 (7.35-7.45) 12/21/19 05:00 ABG pCO2 55.0 mmHg (35.0-45.0) H* 12/21/19 05:00 ABG pO2 58.0 mmHg (80.0-100.0) L 12/21/19 05:00 ABG HCO3 31.1 mmol/L (22-26) H* 12/21/19 05:00 ABG O2 Saturation 89.0 % (90-100) L 12/21/19 05:00 ABG Base Excess 4.4 mmol/L (-2.0-2.0) H 12/21/19 05:00 Triston Test Pos 12/21/19 05:00 A-a Gradient 586.0 mmHg 12/21/19 05:00 FiO2 100.0 12/21/19 05:00 Blood Gas Comments Quinten well sw 12/21/19 05:00 Sodium 136 mmol/L (136-145) 12/21/19 04:33 Corrected Sodium 137 mmol/L (136-145) 12/21/19 04:33 Potassium 4.7 mmol/L (3.5-5.1) 12/21/19 04:33 Chloride 102 mmol/L (98-107) 12/21/19 04:33 Carbon Dioxide 29.1 mmol/L (21-32) 12/21/19 04:33 BUN 24 mg/dL (7-18) H 12/21/19 04:33 Creatinine 1.04 mg/dL (0.55-1.02) H 12/21/19 04:33 Est GFR (MDRD) Af Amer > 60 (>60) 12/21/19 04:33 Est GFR (MDRD) Non-Af 54 (>60) L 12/21/19 04:33 Glucose 162 mg/dL (65-99) H 12/21/19 04:33 Calcium 7.5 mg/dL (8.5-10.1) L 12/21/19 04:33 Corrected Calcium 9.0 mg/dL (8.5-10.1) 12/21/19 04:33 Ferritin 533 ng/mL (8-252) H 12/21/19 04:33 Total Bilirubin 0.30 mg/dL (0.2-1.0) 12/21/19 04:33 AST 52 Units/L (15-37) H 12/21/19 04:33 ALT 35 Units/L (12-78) 12/21/19 04:33 Alkaline Phosphatase 71 Units/L (46-116) 12/21/19 04:33 C-Reactive Protein 34.40 mg/L (0-3.0) H 12/21/19 04:33 Total Protein 6.0 g/dL (6.4-8.2) L 12/21/19 04:33 Albumin 2.1 g/dL (3.4-5.0) L 12/21/19 04:33 Globulin 3.9 g/dL (2.5-4.5) 12/21/19 04:33 Albumin/Globulin Ratio 0.5 Ratio (1.1-2.1) L 12/21/19 04:33 Specimen Type Catherized urine 12/18/19 11:45 Urine Color Pale yellow (YELLOW) 12/18/19 11:45 Urine Appearance Clear (CLEAR) 12/18/19 11:45 Urine pH 6.0 (5.0 - 8.0) 12/18/19 11:45 Ur Specific [place] 1.015 (1.000-1.030) 12/18/19 11:45 Urine Protein 3+ (NEGATIVE) 12/18/19 11:45 Urine Glucose (UA) Negative (NEGATIVE) 12/18/19 11:45 Urine Ketones 3+ (NEGATIVE) 12/18/19 11:45 Urine Occult Blood 2+ (NEGATIVE) 12/18/19 11:45 Urine Nitrite Negative (NEGATIVE) 12/18/19 11:45 Urine Bilirubin Negative (NEGATIVE) 12/18/19 11:45 Urine Urobilinogen Normal (NORMAL) 12/18/19 11:45 Ur Leukocyte Esterase Negative (NEGATIVE) 12/18/19 11:45 Urine RBC 0-2 /HPF (0-3) 12/18/19 11:45 Urine WBC None seen /HPF (0-5) 12/18/19 11:45 Ur Squamous Epith Cells Negative /HPF (NEGATIVE) 12/18/19 11:45 Amorphous Sediment Trace /HPF (NEGATIVE) 12/18/19 11:45 Urine Bacteria Negative /HPF (NEGATIVE) 12/18/19 11:45 Granular Casts Rare /LPF (NEGATIVE) 12/18/19 11:45 Urine Mucus Few /HPF (NEGATIVE) 12/18/19 11:45 Ur Culture Indicated? No/not indicated 12/18/19 11:45 - Plan (1) COVID-19 Status: Acute Plan: ADMIT, BIPAP, 1/2NS AT 75 ML/HR, LEVAQUIN 500MG IV DAILY, PLAQUENIL 200MG PO BID, ZINC SULFATE 220MG PO DAILY, ROBITUSSIN DM 10ML PO QID, REMDESIVIR 200MG IV X 1 DOSE, THEN 100MG IV DAILY, ACTEMRA 400MG IV X 1 DOSE, DUONEBS QID, PULMICORT NEBS BID, AND SOLU-MEDROL 125MG IV Q8H. (2) Pneumonia Status: Acute Qualifiers: Pneumonia type: due to unspecified organism Laterality: unspecified laterality Lung location: unspecified part of lung Qualified Code(s): J18.9 - Pneumonia, unspecified organism (3) Hypoxia Status: Acute
[2019-12-21] MEDS: REMDESIVIR (INVESTIGATIONAL DRUG GS-5734) 200 MG in NS 250 ML IV 250 ML IV SCH (20:30)
[2019-12-21] MEDS ORDERED: VANCOMYCIN HCL ONE (20:43)
[2019-12-21] MEDS: KLONOPIN TAB 1 MG PO SCH (21:11)
[2019-12-21] MEDS: XARELTO PO SCH (21:12)
[2019-12-21] MEDS: CITRACAL + VITAMIN D PO SCH (21:13)
[2019-12-21] MEDS: MUCINEX EXPECTORANT PO SCH (21:15)
[2019-12-21] MEDS: CRESTOR TAB 10 MG PO SCH (21:24)
[2019-12-22] MEDS: MORPHINE SULFATE INJ 2 MG INJ IVP SCH ×6 (02:38→22:25)
[2019-12-22 05:13] LABS: ABG BASE EXCESS 5.5 mmol/L (-2.0-2.0)
[2019-12-22 05:14] LABS: ABG ALLEN TEST POS; ABG HCO3 33.2 mmol/L (22-26)
[2019-12-22 05:18] LABS: BASOPHILS % (AUTO) 0.2 % (0.2-1.0); HEMATOCRIT 34.6 % (36.0-47.0); HEMOGLOBIN 11.3 g/dL (12.0-16.0); LYMPHOCYTES # (AUTO) 0.3 X10^3/uL (1.3-2.9); LYMPHOCYTES % (AUTO) 2.4 % (21.0-51.0); MEAN CORPUSCULAR HEMOGLOBIN 29.8 pg (27.0-34.0); MEAN CORPUSCULAR HGB CONC 32.5 g/dL (33.0-35.0); MEAN CORPUSCULAR VOLUME 91.5 fL (80.0-100.0); MONOCYTES # (AUTO) 0.4 x10^3/uL (0.3-0.8); MONOCYTES % (AUTO) 2.7 % (0.0-13.0); NEUTROPHILS # (AUTO) 12.5 x10^3/uL (2.2-4.8); NEUTROPHILS % (AUTO) 94.7 % (42.0-75.0); PLATELET COUNT 333 X10^3/uL (150.0-450.0); RED BLOOD COUNT 3.78 X10^6/uL (3.5-5.4); RED CELL DISTRIBUTION WIDTH 14.4 % (11.6-16.5); WHITE BLOOD COUNT 13.2 X10^3/uL (3.6-10.0)
[2019-12-22 05:33] LABS: ALANINE AMINOTRANSFERASE 33 Units/L (12-78); ALBUMIN 2.1 g/dL (3.4-5.0); ALKALINE PHOSPHATASE 100 Units/L (46-116); ASPARTATE AMINO TRANSFERASE 38 Units/L (15-37); BLOOD UREA NITROGEN 24 mg/dL (7-18); CALCIUM 7.5 mg/dL (8.5-10.1); CARBON DIOXIDE 29.7 mmol/L (21-32); CHLORIDE 102 mmol/L (98-107); COR NA(FOR HYPERGLY) 138 mmol/L (136-145); CREATININE 1.05 mg/dL (0.55-1.02); SODIUM 136 mmol/L (136-145); TOTAL PROTEIN 5.9 g/dL (6.4-8.2); eGFR NON BLACK RACES 53 (>60)
[2019-12-22 05:57] LABS: BAND NEUTROPHILS % 1 % (0-10); PLATELET MORPHOLOGY COMMENT NORMAL (NORMAL)
[2019-12-22] MEDS: NEURONTIN CAP 300 MG PO SCH ×3 (06:03→22:26)
[2019-12-22] MEDS: SOLU-Medrol 125 MG VIAL IVP SCH (06:05)
[2019-12-22] MEDS: NORCO 7.5/325 MG TAB PO SCH ×3 (06:05→22:24)
--- NOTE | 2019-12-22 06:23 | RAD ---
HISTORYShortness of breathSTUDYChest AP [id number] heart remains enlarged. Bilateral perihilar interstitial and alveolar infiltrates are again identified and are unchanged from the prior examination. This could be on the basis of edema or infection. Hyperinflation is present. No pleural effusions are identified. Bony thorax is unremarkable with the exception of a right shoulder arthroplasty.IMPRESSIONNo change cardiomegalyNo change bilateral perihilar interstitial and alveolar infiltrates which could be on the basis of edema or infection.No change hyperinflationElectronically signed by: MARY ELLEN CORRAL (Dec 22, 2019 06:22:06)
[2019-12-22] MEDS: DUONEB 0.5 MG/3 MG (3 mL) NEB SCH ×4 (09:00→20:45)
[2019-12-22] MEDS: PULMICORT NEB TX 0.5 MG NEB SCH ×2 (09:00→20:45)
[2019-12-22] MEDS ORDERED: NS 1/2 1000 ML IV 1,000 ML IV ONE ×2 (09:41→21:23)
[2019-12-22] MEDS: NS 1/2 1000 ML IV 1,000 ML IV SCH (09:56)
[2019-12-22] MEDS: CELEBREX PO SCH (09:57)
[2019-12-22] MEDS: CLARITIN PO SCH (09:58)
[2019-12-22] MEDS: COLACE CAP 100 MG PO SCH ×2 (09:59→22:26)
[2019-12-22] MEDS: VITAMIN D3 125 mcg (5,000 UNITS) PO SCH (10:00)
[2019-12-22] MEDS: ZINC SULFATE PO SCH (10:00)
[2019-12-22] MEDS: POTASSIUM CHLORIDE LIQ 20 MEQ UDC PO SCH (10:00)
[2019-12-22] MEDS: ROBITUSSIN DM PO SCH ×4 (10:00→22:27)
[2019-12-22] MEDS: FERROUS GLUCONATE PO SCH (10:00)
[2019-12-22] MEDS: NexIUM PO SCH (10:00)
[2019-12-22] MEDS: PLAVIX PO SCH (10:00)
[2019-12-22] MEDS: INVANZ INJ 1 GM VIAL 1 GM in NS 100 ML IV + SPIKE MINIBAG* 100 ML IV SCH (10:00)
[2019-12-22] MEDS: VITAMIN C PO SCH (10:00)
[2019-12-22] MEDS: SINGULAIR TAB 10 MG PO SCH (10:00)
[2019-12-22] MEDS: VSL#3 PO SCH (10:00)
[2019-12-22] MEDS: TAB-A-VITE PO SCH (10:00)
[2019-12-22] MEDS: FOLIC ACID TAB 1 MG PO SCH (10:00)
[2019-12-22] MEDS: PROzac PO SCH (10:00)
[2019-12-22] MEDS: COREG TAB 12.5 MG PO SCH ×2 (10:00→22:27)
[2019-12-22] MEDS: LASIX PO SCH (10:16)
--- NOTE | 2019-12-22 10:37 | PCM.PROG ---
Progress Note - Progress Note for Day of Date of Exam: 12/21/19 - Subjective Subjective: IS BEING TREATED FOR PNEUMONIA DUE TO COVID-19, PNEUMONIA, AND HYPOXIA. TODAY, SHE IS LYING IN BED WITH EYES CLOSED ON MORNING ROUNDS. SHE AWAKENS AND RESPONDS TO VERBAL STIMULI. SHE CONTINUES WITH SHORTNESS OF BREATH AND COUGH TODAY. SHE DENIES MUCH IMPROVEMENT SINCE YESTERDAY. SHE REMAINS ON THE BIPAP TODAY. ON EXAMINATION, HEART IS REGULAR IN RATE AND RHYTHM. BILATERAL LUNGS ARE NOTED WITH SCATTERED WHEEZING AND RHONCHI THROUGHOUT. ABDOMEN IS ROUND, SOFT, AND NON-TENDER WITH NORMAL BOWEL SOUNDS NOTED IN ALL QUADRANTS. HER VITALS THIS MORNING ARE: 98.1-85-28-89%BIPAP-133/61. LABS WERE OBTAINED. ABNORMAL LAB VALUES INCLUDE THE FOLLOWING: HGB 11.3, HCT 34.7, BUN 24, CREATIN INE 1.05, GLUCOSE 168, CALCIUM 7.5, FERRITIN 533, AST 52, CRP 34.40, TOTAL PROTEIN 6.0, ALBUMIN 2.1. AN ABG WAS REPEATED THIS MORNING AND REVEALED: PH 7.360, PC02 55.0, P02 58.0, HC03 31.1, 02 SATURATION 89.0, BASE EXCESS 4.4, FI02 100.0. BLOOD CULTURES ARE PENDING. SPUTUM CULTURES REVEAL GROWTH OF E.COLI AND MRSA. A CHEST XRAY WAS OBTAINED AND REVEALED: The trachea is midline. The cardiac silhouette is slightly enlarged. Her is. Bilateral perihilar right upper and lower and left lower lobe infiltrates, unchanged. No pleural effusion or pneumothorax.. The bony thorax is unremarkable. SHE IS CURRENTLY RECEIVING 1/2NS AT 75 ML/HR, LEVAQUIN 500MG IV DAILY, ZINC SULFATE 220MG PO DAILY, ROBITUSSIN DM 10ML PO QID, REMDESIVIR 100MG IV DAILY, DUONEBS QID, PULMICORT NEBS BID, AND SOLU-MEDROL 125MG IV Q8H. WE WILL DISCONTINUE THE LEVAQUIN AND START INVANZ 1G IV DAILY AND VANCOMYCIN 1G IV Q12H. OTHERWISE, WE PLAN TO FOLLOW UP WITH AM LABS AND CONTINUE TO MONITOR. - Past Medical Family Social History Past Med/Fam/Surg Hx: No changes since H&P Allergies: Allergies codeine Allergy (Verified 02/06/17 22:08) hydromorphone [From Dilaudid] Allergy (Verified 02/06/17 22:08) influenza virus vaccine qs 2246-3649 (36 mos, up) [From Single Use EZ Flu] Allergy (Verified 03/24/17 18:04) meperidine [From Demerol] Allergy (Verified 02/06/17 22:08) prednisone Allergy (Verified 02/06/17 22:08) - Review of Systems ROS: No change since H&P - Vital Signs and I&O's Vital Signs: Temperature 97.2 F Pulse Rate 83 Respiratory Rate 20 Blood Pressure [Left Arm] 120/56 Blood Pressure 124/61 O2 Sat by Pulse Oximetry 89 Intake and Output: Intake & Output 12/19/19 12/20/19 12/21/19 12/22/19 11:59 11:59 11:59 11:59 Intake Total 1630 / 1630 2764 / 2764 1945 / 1945 2365 / 2365 Output Total 1000 / 1000 1375 / 1375 1100 / 1100 960 / 960 Balance 630 / 630 1389 / 1389 845 / 845 1405 / 1405 - Physical Exam Oriented: Normal Eyes: Normal Ear: Normal Nose: Normal Throat: Normal Respiratory: Generalized, Diminished, Wheezes, Rhonchi Cardiovascular: Normal : Normal Auscultation: Bowel Sounds: Normal Palpation: Normal Tenderness: Normal Skin: Normal Musculoskeletal: Normal Psychiatric: Normal Mood Description: Calm Affect: Normal Speech Pattern: Clear, Delayed - Laboratory and Diagnostics Result Diagrams: 12/22/19 04:29 12/22/19 04:29 Labs: 12/17/19 16:30 Sputum - Expectorated Sputum Sputum Culture - Final Escherichia Coli Methicillin Resis Staph Aureus 12/17/19 16:30 Sputum - Expectorated Sputum - Final 12/17/19 15:03 Blood Blood Culture - Preliminary 12/17/19 15:00 Blood Blood Culture - Preliminary Laboratory WBC 13.2 X10^3/uL (3.6-10.0) H 12/22/19 04:29 RBC 3.78 X10^6/uL (3.5-5.4) 12/22/19 04:29 Hgb 11.3 g/dL (12.0-16.0) L 12/22/19 04:29 Hct 34.6 % (36.0-47.0) L 12/22/19 04:29 MCV 91.5 fL (80.0-100.0) 12/22/19 04: MCH 29.8 pg (27.0-34.0) 12/22/19 04: MCHC 32.5 g/dL (33.0-35.0) L 12/22/19 04: RDW 14.4 % (11.6-16.5) 12/22/19 04: Plt Count 333 X10^3/uL (150.0-450.0) 12/22/19 04:29 Plt Count Comment Adequate (ADEQUATE) 12/22/19 04: MPV 7.0 fL (7.4-11.0) L 12/22/19 04: Neut % (Auto) 94.7 % (42.0-75.0) H 12/22/19 04: Lymph % (Auto) 2.4 % (21.0-51.0) L 12/22/19 04: [place] % (Auto) 2.7 % (0.0-13.0) 12/22/19 04: Eos % (Auto) 0.0 % (0.9-2.9) L 12/22/19 04: Baso % (Auto) 0.2 % (0.2-1.0) 12/22/19 04: Neut # (Auto) 12.5 x10^3/uL (2.2-4.8) H 12/22/19 04:29 Lymph # (Auto) 0.3 X10^3/uL (1.3-2.9) L 12/22/19 04:29 [place] # (Auto) 0.4 x10^3/uL (0.3-0.8) 12/22/19 04:29 Eos # (Auto) 0.0 x10^3/uL (0.0-0.2) 12/22/19 04: Baso # (Auto) 0.0 X10^3/uL (0.0-0.1) 12/22/19 04: Absolute Nucleated RBC 0.1 /100WBC 12/22/19 04:29 Total Counted 100 12/22/19 04:29 Neutrophils % (Manual) 94 % (39-76) H 12/22/19 04:29 Band Neutrophils % 1 % (0-10) 12/22/19 04:29 Lymphocytes % (Manual) 3 % (13-43) L 12/22/19 04:29 Monocytes % (Manual) 2 % (4-9) L 12/22/19 04:29 Plt Morphology Comment Normal (NORMAL) 12/22/19 04:29 RBC Morphology Normal (NORMAL) 12/22/19 04:29 Sample Site Rrad 12/22/19 05:06 ABG pH 7.330 (7.35-7.45) L 12/22/19 05:06 ABG pCO2 63.0 mmHg (35.0-45.0) H* 12/22/19 05:06 ABG pO2 58.0 mmHg (80.0-100.0) L 12/22/19 05:06 ABG HCO3 33.2 mmol/L (22-26) H* 12/22/19 05:06 ABG O2 Saturation 88.0 % (90-100) L 12/22/19 05:06 ABG Base Excess 5.5 mmol/L (-2.0-2.0) H 12/22/19 05:06 Triston Test Pos 12/22/19 05:06 A-a Gradient 576.0 mmHg 12/22/19 05:06 FiO2 100.0 12/22/19 05:06 Blood Gas Comments Quinten abg well-mtf 12/22/19 05:06 Sodium 136 mmol/L (136-145) 12/22/19 04:29 Corrected Sodium 138 mmol/L (136-145) 12/22/19 04:29 Potassium 5.0 mmol/L (3.5-5.1) 12/22/19 04:29 Chloride 102 mmol/L (98-107) 12/22/19 04:29 Carbon Dioxide 29.7 mmol/L (21-32) 12/22/19 04:29 BUN 24 mg/dL (7-18) H 12/22/19 04:29 Creatinine 1.05 mg/dL (0.55-1.02) H 12/22/19 04:29 Est GFR (MDRD) Af Amer > 60 (>60) 12/22/19 04:29 Est GFR (MDRD) Non-Af 53 (>60) L 12/22/19 04:29 Glucose 168 mg/dL (65-99) H 12/22/19 04:29 Calcium 7.5 mg/dL (8.5-10.1) L 12/22/19 04:29 Corrected Calcium 9.0 mg/dL (8.5-10.1) 12/22/19 04:29 Ferritin 422 ng/mL (8-252) H 12/22/19 04:29 Total Bilirubin 0.30 mg/dL (0.2-1.0) 12/22/19 04:29 AST 38 Units/L (15-37) H 12/22/19 04:29 ALT 33 Units/L (12-78) 12/22/19 04:29 Alkaline Phosphatase 100 Units/L (46-116) 12/22/19 04:29 C-Reactive Protein 23.30 mg/L (0-3.0) H 12/22/19 04:29 Total Protein 5.9 g/dL (6.4-8.2) L 12/22/19 04:29 Albumin 2.1 g/dL (3.4-5.0) L 12/22/19 04:29 Globulin 3.8 g/dL (2.5-4.5) 12/22/19 04:29 Albumin/Globulin Ratio 0.6 Ratio (1.1-2.1) L 12/22/19 04:29 Specimen Type Catherized urine 12/18/19 11:45 Urine Color Pale yellow (YELLOW) 12/18/19 11:45 Urine Appearance Clear (CLEAR) 12/18/19 11:45 Urine pH 6.0 (5.0 - 8.0) 12/18/19 11:45 Ur Specific [place] 1.015 (1.000-1.030) 12/18/19 11:45 Urine Protein 3+ (NEGATIVE) 12/18/19 11:45 Urine Glucose (UA) Negative (NEGATIVE) 12/18/19 11:45 Urine Ketones 3+ (NEGATIVE) 12/18/19 11:45 Urine Occult Blood 2+ (NEGATIVE) 12/18/19 11:45 Urine Nitrite Negative (NEGATIVE) 12/18/19 11:45 Urine Bilirubin Negative (NEGATIVE) 12/18/19 11:45 Urine Urobilinogen Normal (NORMAL) 12/18/19 11:45 Ur Leukocyte Esterase Negative (NEGATIVE) 12/18/19 11:45 Urine RBC 0-2 /HPF (0-3) 12/18/19 11:45 Urine WBC None seen /HPF (0-5) 12/18/19 11:45 Ur Squamous Epith Cells Negative /HPF (NEGATIVE) 12/18/19 11:45 Amorphous Sediment Trace /HPF (NEGATIVE) 12/18/19 11:45 Urine Bacteria Negative /HPF (NEGATIVE) 12/18/19 11:45 Granular Casts Rare /LPF (NEGATIVE) 12/18/19 11:45 Urine Mucus Few /HPF (NEGATIVE) 12/18/19 11:45 Ur Culture Indicated? No/not indicated 12/18/19 11:45 - Plan (1) COVID-19 Status: Acute Plan: BIPAP, 1/2NS AT 75 ML/HR, INVANZ 1G IV DAILY, VANCOMYCIN 1G IV Q12H, ZINC SULFATE 220MG PO DAILY, ROBITUSSIN DM 10ML PO QID, REMDESIVIR 200MG IV X 1 DOSE, THEN 100MG IV DAILY, ACTEMRA 400MG IV X 1 DOSE, DUONEBS QID, PULMICORT NEBS BID, AND SOLU-MEDROL 125MG IV Q8H. (2) Pneumonia Status: Acute Qualifiers: Pneumonia type: due to unspecified organism Laterality: unspecified laterality Lung location: unspecified part of lung Qualified Code(s): J18.9 - Pneumonia, unspecified organism (3) Hypoxia Status: Acute
[2019-12-22] MEDS: VANCOMYCIN HCL 250 MG, VANCOMYCIN HCL 1 G in D5W 250 ML IV 250 ML IV SCH ×2 (12:00→23:51)
[2019-12-22] MEDS: CITRACAL + VITAMIN D PO SCH ×2 (12:00→22:26)
[2019-12-22] MEDS: SOLU-Medrol 40 MG VIAL IVP SCH ×3 (16:00→23:50)
[2019-12-22] MEDS ORDERED: PHARMACY COMMENT IV NR (20:30)
[2019-12-22 21:47] LABS: CREATININE 1.14 mg/dL (0.55-1.02)
[2019-12-22 21:50] LABS: VANCOMYCIN,TROUGH 30.2 ug/mL (15-20)
[2019-12-22] MEDS: REMDESIVIR (INVESTIGATIONAL DRUG GS-5734) 200 MG in NS 250 ML IV 250 ML IV SCH (22:25)
[2019-12-22] MEDS: CRESTOR TAB 10 MG PO SCH (22:28)
[2019-12-22] MEDS: KLONOPIN TAB 1 MG PO SCH (22:28)
[2019-12-22] MEDS: MUCINEX EXPECTORANT PO SCH (22:29)
[2019-12-22] MEDS: XARELTO PO SCH (22:29)
[2019-12-23] MEDS: NS 1/2 1000 ML IV 1,000 ML IV SCH ×3 (00:01→11:02)
[2019-12-23] MEDS: MORPHINE SULFATE INJ 2 MG INJ IVP SCH ×6 (02:30→22:10)
[2019-12-23 04:21] LABS: ABG BASE EXCESS 6.3 mmol/L (-2.0-2.0)
[2019-12-23 04:24] LABS: ABG ALLEN TEST POSS; ABG HCO3 34.5 mmol/L (22-26)
[2019-12-23 05:33] LABS: BASOPHILS % (AUTO) 0.1 % (0.2-1.0); HEMATOCRIT 35.3 % (36.0-47.0); HEMOGLOBIN 11.2 g/dL (12.0-16.0); LYMPHOCYTES # (AUTO) 0.3 X10^3/uL (1.3-2.9); LYMPHOCYTES % (AUTO) 2.2 % (21.0-51.0); MEAN CORPUSCULAR HEMOGLOBIN 29.1 pg (27.0-34.0); MEAN CORPUSCULAR HGB CONC 31.8 g/dL (33.0-35.0); MEAN CORPUSCULAR VOLUME 91.4 fL (80.0-100.0); MEAN PLATELET VOLUME 7.1 fL (7.4-11.0); MONOCYTES # (AUTO) 0.4 x10^3/uL (0.3-0.8); MONOCYTES % (AUTO) 2.9 % (0.0-13.0); NEUTROPHILS # (AUTO) 12.8 x10^3/uL (2.2-4.8); NEUTROPHILS % (AUTO) 94.8 % (42.0-75.0); PLATELET COUNT 317 X10^3/uL (150.0-450.0); RED BLOOD COUNT 3.86 X10^6/uL (3.5-5.4); RED CELL DISTRIBUTION WIDTH 14.4 % (11.6-16.5); WHITE BLOOD COUNT 13.5 X10^3/uL (3.6-10.0)
[2019-12-23 05:44] LABS: ALANINE AMINOTRANSFERASE 30 Units/L (12-78); ALBUMIN 2.1 g/dL (3.4-5.0); ALKALINE PHOSPHATASE 79 Units/L (46-116); ASPARTATE AMINO TRANSFERASE 29 Units/L (15-37); BLOOD UREA NITROGEN 25 mg/dL (7-18); CALCIUM 7.7 mg/dL (8.5-10.1); CARBON DIOXIDE 30.2 mmol/L (21-32); CHLORIDE 103 mmol/L (98-107); COR CA(FOR HYPOALB) 9.2 mg/dL (8.5-10.1); COR NA(FOR HYPERGLY) 138 mmol/L (136-145); CREATININE 1.01 mg/dL (0.55-1.02); SODIUM 137 mmol/L (136-145); TOTAL PROTEIN 5.5 g/dL (6.4-8.2); eGFR NON BLACK RACES 56 (>60)
[2019-12-23 05:54] LABS: PLATELET MORPHOLOGY COMMENT NORMAL (NORMAL)
[2019-12-23] MEDS: NORCO 7.5/325 MG TAB PO SCH ×3 (06:07→22:10)
[2019-12-23] MEDS: NEURONTIN CAP 300 MG PO SCH ×3 (06:08→21:15)
[2019-12-23] MEDS: SOLU-Medrol 40 MG VIAL IVP SCH ×3 (06:08→22:15)
--- NOTE | 2019-12-23 06:32 | RAD ---
HISTORYSOBSTUDYCHEST x-ray, 1 VIEWCOMPARISONChest x-ray 12/22/2019FINDINGSBilateral lung opacities could be due to atypical pneumonia or pulmonary edema. Possible CHF changes are present. There is prominence of the aortic arch. This is unchanged from prior study but is not seen on November x-rays. Possible small pleural effusions are seen. No pneumothorax is seen.IMPRESSIONProbable bilateral pneumonia from COVID-19 infection.There is probable CHF and pulmonary edema could contribute to the densities.Prominence of the aortic arch is seen which could be projectional. Follow-up PA and lateral views of the chest may be useful to assure no true enlargement.Electronically signed by: Rosendo Caldwell (Dec 23, 2019 06:31:37)
[2019-12-23 06:54] LABS: CREATININE 0.91 mg/dL (0.55-1.02)
[2019-12-23 07:02] LABS: VANCOMYCIN,TROUGH 21.4 ug/mL (15-20)
[2019-12-23] MEDS: DUONEB 0.5 MG/3 MG (3 mL) NEB SCH ×4 (08:30→20:35)
[2019-12-23] MEDS: PULMICORT NEB TX 0.5 MG NEB SCH ×2 (08:30→20:35)
[2019-12-23] MEDS: NexIUM PO SCH (08:44)
[2019-12-23] MEDS: VITAMIN D3 125 mcg (5,000 UNITS) PO SCH (08:44)
[2019-12-23] MEDS: COLACE CAP 100 MG PO SCH ×2 (08:45→21:15)
[2019-12-23] MEDS: PROzac PO SCH (08:46)
[2019-12-23] MEDS: ZINC SULFATE PO SCH (08:46)
[2019-12-23] MEDS: VITAMIN C PO SCH (08:47)
[2019-12-23] MEDS: VSL#3 PO SCH (08:47)
[2019-12-23] MEDS: ROBITUSSIN DM PO SCH ×4 (08:48→21:15)
[2019-12-23] MEDS: TAB-A-VITE PO SCH (08:48)
[2019-12-23] MEDS: PLAVIX PO SCH (08:49)
[2019-12-23] MEDS: SINGULAIR TAB 10 MG PO SCH (08:50)
[2019-12-23] MEDS: POTASSIUM CHLORIDE LIQ 20 MEQ UDC PO SCH (08:50)
[2019-12-23] MEDS: CELEBREX PO SCH (08:51)
[2019-12-23] MEDS: INVANZ INJ 1 GM VIAL 1 GM in NS 100 ML IV + SPIKE MINIBAG* 100 ML IV SCH (08:51)
[2019-12-23] MEDS: CITRACAL + VITAMIN D PO SCH ×2 (08:51→22:15)
[2019-12-23] MEDS: FOLIC ACID TAB 1 MG PO SCH (08:52)
[2019-12-23] MEDS: CLARITIN PO SCH (08:52)
[2019-12-23] MEDS: FERROUS GLUCONATE PO SCH (08:52)
[2019-12-23] MEDS: COREG TAB 12.5 MG PO SCH ×2 (08:53→21:15)
[2019-12-23] MEDS ORDERED: VANCOMYCIN HCL 1 G in D5W 250 ML IV 250 ML IV SCH (09:00)
--- NOTE | 2019-12-23 11:05 | PCM.PROG ---
Progress Note - Progress Note for Day of Date of Exam: 12/22/19 - Subjective Subjective: IS BEING TREATED FOR PNEUMONIA DUE TO COVID-19, PNEUMONIA, AND HYPOXIA. TODAY, SHE IS LYING IN BED WITH EYES CLOSED ON MORNING ROUNDS. SHE AWAKENS AND RESPONDS TO VERBAL STIMULI. SHE CONTINUES WITH SHORTNESS OF BREATH AND COUGH TODAY. SHE REPORTS SLIGHT IMPROVEMENT IN SYMPTOMS TODAY. SHE REMAINS ON THE BIPAP TODAY AND ONLY REMOVED TO EAT OR DRINK. WHEN IT IS REMOVED, SHE IS PLACED ON HEATED HIGH FLOW OXYGEN. ON EXAMINATION, HEART IS REGULAR IN RATE AND RHYTHM. BILATERAL LUNGS ARE NOTED WITH SCATTERED WHEEZING AND RHONCHI THROUGHOUT. ABDOMEN IS ROUND, SOFT, AND NON-TENDER WITH NORMAL BOWEL SOUNDS NOTED IN ALL QUADRANTS. HER VITALS THIS MORNING ARE: 97.7-61-20-93%-142/63. LABS WERE OBTAINED. ABNORMAL LAB VALUES INCLUDE THE FOLLOWING: WBC 13.2, HGB 11.3, HCT 34.6, BUN 24, CREATININE 1.05, GLUCOSE 168, CALCIUM 7.5, FERRITIN 422, AST 38, CRP 23.30, TOTAL PROTEIN 5.9, ALBUMIN 2.1. AN ABG WAS REPEATED THIS MORNING AND REVEALED: PH 7.330, PC02 63.0, P02 58.0, HC03 33.2, 02 SATURATION 88.0, BASE EXCESS 5.5, FI02 100.0. SPUTUM CULTURES REVEAL GROWTH OF E.COLI AND MRSA. A CHES T XRAY WAS OBTAINED AND REVEALED: No change cardiomegaly. No change bilateral perihilar interstitial and alveolar infiltrates which could be on the basis of edema or infection. No change hyperinflation. SHE IS CURRENTLY RECEIVING 1/2NS AT 75 ML/HR, INVANZ 1G IV DAILY AND VANCOMYCIN 1G IV Q12H, ZINC SULFATE 220MG PO DAILY, ROBITUSSIN DM 10ML PO QID, REMDESIVIR 100MG IV DAILY, DUONEBS QID, PULMICORT NEBS BID, AND SOLU-MEDROL 125MG IV Q8H. WE WILL DECREASE THE SOLU- MEDROL TO 80MG IV Q8H. OTHERWISE, WE PLAN TO FOLLOW UP WITH AM LABS, CHEST XRAY, AND ABG AND CONTINUE TO MONITOR. - Past Medical Family Social History Past Med/Fam/Surg Hx: No changes since H&P Allergies: Allergies codeine Allergy (Verified 09/21/17 22:08) hydromorphone [From Dilaudid] Allergy (Verified 02/06/17 22:08) influenza virus vaccine qs 2800-9153 (36 mos, up) [From Single Use EZ Flu] Allergy (Verified 03/24/17 18:04) meperidine [From Demerol] Allergy (Verified 02/06/17 22:08) prednisone Allergy (Verified 02/06/17 22:08) - Review of Systems ROS: No change since H&P - Vital Signs and I&O's Vital Signs: Temperature 98.2 F Pulse Rate 76 Respiratory Rate 22 Blood Pressure [Left Arm] 120/56 Blood Pressure 174/72 O2 Sat by Pulse Oximetry 87 Intake and Output: Intake & Output 12/20/19 12/21/19 12/22/19 12/23/19 11:59 11:59 11:59 11:59 Intake Total 2764 / 2764 1945 / 1945 2365 / 2365 4391 / 4391 Output Total 1375 / 1375 1100 / 1100 960 / 960 1375 / 1375 Balance 1389 / 1389 845 / 845 1405 / 1405 3016 / 3016 - Physical Exam Oriented: Normal Eyes: Normal Ear: Normal Nose: Normal Throat: Normal Respiratory: Generalized, Diminished, Wheezes, Rhonchi Cardiovascular: Normal : Normal Auscultation: Bowel Sounds: Normal Palpation: Normal Tenderness: Normal Skin: Normal Musculoskeletal: Normal Psychiatric: Normal Mood Description: Calm Affect: Normal Speech Pattern: Clear - Laboratory and Diagnostics Result Diagrams: 12/23/19 04:35 12/23/19 04:35 Labs: 12/17/19 15:03 Blood Blood Culture - Final 12/17/19 15:00 Blood Blood Culture - Final 12/17/19 16:30 Sputum - Expectorated Sputum Sputum Culture - Final Escherichia Coli Methicillin Resis Staph Aureus 12/17/19 16:30 Sputum - Expectorated Sputum - Final Laboratory WBC 13.5 X10^3/uL (3.6-10.0) H 12/23/19 04:35 RBC 3.86 X10^6/uL (3.5-5.4) 12/23/19 04:35 Hgb 11.2 g/dL (12.0-16.0) L 12/23/19 04:35 Hct 35.3 % (36.0-47.0) L 12/23/19 04:35 MCV 91.4 fL (80.0-100.0) 12/23/19 04:35 MCH 29.1 pg (27.0-34.0) 12/23/19 04:35 MCHC 31.8 g/dL (33.0-35.0) L 12/23/19 04:35 RDW 14.4 % (11.6-16.5) 12/23/19 04:35 Plt Count 317 X10^3/uL (150.0-450.0) 12/23/19 04:35 Plt Count Comment Adequate (ADEQUATE) 12/23/19 04:35 MPV 7.1 fL (7.4-11.0) L 12/23/19 04:35 Neut % (Auto) 94.8 % (42.0-75.0) H 12/23/19 04:35 Lymph % (Auto) 2.2 % (21.0-51.0) L 12/23/19 04:35 [place] % (Auto) 2.9 % (0.0-13.0) 12/23/19 04:35 Eos % (Auto) 0.0 % (0.9-2.9) L 12/23/19 04:35 Baso % (Auto) 0.1 % (0.2-1.0) L 12/23/19 04:35 Neut # (Auto) 12.8 x10^3/uL (2.2-4.8) H 12/23/19 04:35 Lymph # (Auto) 0.3 X10^3/uL (1.3-2.9) L 12/23/19 04:35 [place] # (Auto) 0.4 x10^3/uL (0.3-0.8) 12/23/19 04:35 Eos # (Auto) 0.0 x10^3/uL (0.0-0.2) 12/23/19 04:35 Baso # (Auto) 0.0 X10^3/uL (0.0-0.1) 12/23/19 04:35 Absolute Nucleated RBC 0.0 /100WBC 12/23/19 04:35 Total Counted 100 12/23/19 04:35 Neutrophils % (Manual) 97 % (39-76) H 12/23/19 04:35 Band Neutrophils % 1 % (0-10) 12/22/19 04:29 Lymphocytes % (Manual) 2 % (13-43) L 12/23/19 04:35 Monocytes % (Manual) 1 % (4-9) L 12/23/19 04:35 Plt Morphology Comment Normal (NORMAL) 12/23/19 04:35 RBC Morphology Normal (NORMAL) 12/23/19 04:35 Sample Site L rad 12/23/19 04:13 ABG pH 7.320 (7.35-7.45) L 12/23/19 04:13 ABG pCO2 67.0 mmHg (35.0-45.0) H* 12/23/19 04:13 ABG pO2 62.0 mmHg (80.0-100.0) L 12/23/19 04:13 ABG HCO3 34.5 mmol/L (22-26) H* 12/23/19 04:13 ABG O2 Saturation 89.0 % (90-100) L 12/23/19 04:13 ABG Base Excess 6.3 mmol/L (-2.0-2.0) H 12/23/19 04:13 Triston Test Poss 12/23/19 04:13 A-a Gradient 567.0 mmHg 12/23/19 04:13 FiO2 100.0 12/23/19 04:13 Blood Gas Comments Quinten well ae 12/23/19 04:13 Sodium 137 mmol/L (136-145) 12/23/19 04:35 Corrected Sodium 138 mmol/L (136-145) 12/23/19 04:35 Potassium 5.0 mmol/L (3.5-5.1) 12/23/19 04:35 Chloride 103 mmol/L (98-107) 12/23/19 04:35 Carbon Dioxide 30.2 mmol/L (21-32) 12/23/19 04:35 BUN 25 mg/dL (7-18) H 12/23/19 04:35 Creatinine 0.91 mg/dL (0.55-1.02) 12/23/19 04:35 Creatinine 1.01 mg/dL (0.55-1.02) 12/23/19 04:35 Est GFR (MDRD) Af Amer > 60 (>60) 12/23/19 04:35 Est GFR (MDRD) Non-Af 56 (>60) L 12/23/19 04:35 Glucose 128 mg/dL (65-99) H 12/23/19 04:35 Calcium 7.7 mg/dL (8.5-10.1) L 12/23/19 04:35 Corrected Calcium 9.2 mg/dL (8.5-10.1) 12/23/19 04:35 Ferritin 362 ng/mL (8-252) H 12/23/19 04:35 Total Bilirubin 0.20 mg/dL (0.2-1.0) 12/23/19 04:35 AST 29 Units/L (15-37) 12/23/19 04:35 ALT 30 Units/L (12-78) 12/23/19 04:35 Alkaline Phosphatase 79 Units/L (46-116) 12/23/19 04:35 C-Reactive Protein 14.70 mg/L (0-3.0) H 12/23/19 04:35 Total Protein 5.5 g/dL (6.4-8.2) L 12/23/19 04:35 Albumin 2.1 g/dL (3.4-5.0) L 12/23/19 04:35 Globulin 3.4 g/dL (2.5-4.5) 12/23/19 04:35 Albumin/Globulin Ratio 0.6 Ratio (1.1-2.1) L 12/23/19 04:35 Specimen Type Catherized urine 12/18/19 11:45 Urine Color Pale yellow (YELLOW) 12/18/19 11:45 Urine Appearance Clear (CLEAR) 12/18/19 11:45 Urine pH 6.0 (5.0 - 8.0) 12/18/19 11:45 Ur Specific [place] 1.015 (1.000-1.030) 12/18/19 11:45 Urine Protein 3+ (NEGATIVE) 12/18/19 11:45 Urine Glucose (UA) Negative (NEGATIVE) 12/18/19 11:45 Urine Ketones 3+ (NEGATIVE) 12/18/19 11:45 Urine Occult Blood 2+ (NEGATIVE) 12/18/19 11:45 Urine Nitrite Negative (NEGATIVE) 12/18/19 11:45 Urine Bilirubin Negative (NEGATIVE) 12/18/19 11:45 Urine Urobilinogen Normal (NORMAL) 12/18/19 11:45 Ur Leukocyte Esterase Negative (NEGATIVE) 12/18/19 11:45 Urine RBC 0-2 /HPF (0-3) 12/18/19 11:45 Urine WBC None seen /HPF (0-5) 12/18/19 11:45 Ur Squamous Epith Cells Negative /HPF (NEGATIVE) 12/18/19 11:45 Amorphous Sediment Trace /HPF (NEGATIVE) 12/18/19 11:45 Urine Bacteria Negative /HPF (NEGATIVE) 12/18/19 11:45 Granular Casts Rare /LPF (NEGATIVE) 12/18/19 11:45 Urine Mucus Few /HPF (NEGATIVE) 12/18/19 11:45 Ur Culture Indicated? No/not indicated 12/18/19 11:45 Vancomycin Trough 21.4 ug/mL (15-20) H* 12/23/19 04:35 - Plan (1) COVID-19 Status: Acute Plan: BIPAP, 1/2NS AT 75 ML/HR, INVANZ 1G IV DAILY, VANCOMYCIN 1G IV Q12H, ZINC SULFATE 220MG PO DAILY, ROBITUSSIN DM 10ML PO QID, REMDESIVIR 200MG IV X 1 DOSE, THEN 100MG IV DAILY, ACTEMRA 400MG IV X 1 DOSE, DUONEBS QID, PULMICORT NEBS BID, AND SOLU-MEDROL 80MG IV Q8H. (2) Pneumonia Status: Acute Qualifiers: Pneumonia type: due to unspecified organism Laterality: unspecified laterality Lung location: unspecified part of lung Qualified Code(s): J18.9 - Pneumonia, unspecified organism (3) Hypoxia Status: Acute
--- NOTE | 2019-12-23 20:38 | PCM.PROG ---
Progress Note - Progress Note for Day of Date of Exam: 12/23/19 - Subjective Subjective: IS BEING TREATED FOR PNEUMONIA DUE TO COVID-19, PNEUMONIA, AND HYPOXIA. TODAY, SHE IS LYING IN BED WITH EYES CLOSED ON MORNING ROUNDS. SHE AWAKENS AND RESPONDS TO VERBAL STIMULI. SHE CONTINUES WITH SHORTNESS OF BREATH AND COUGH TODAY, BUT REPORTS SLIGHT IMPROVEMENT IN SYMPTOMS. SHE IS NOTED TO BE ON HEATED HIGH FLOW OXYGEN ON MORNING ROUNDS. ON EXAMINATION, HEART IS REGULAR IN RATE AND RHYTHM. BILATERAL LUNGS ARE NOTED WITH SCATTERED WHEEZING AND RHONCHI THROUGHOUT. ABDOMEN IS ROUND, SOFT, AND NON-TENDER WITH NORMAL BOWEL SOUNDS NOTED IN ALL QUADRANTS. HER VITALS THIS MORNING ARE: 98.2-76-29-86%HHF-174/72. LABS WERE OBTAINED. ABNORMAL LAB VALUES INCLUDE THE FOLLOWING: WBC 13.5, HGB 11.2, HCT 35.3, BUN 25, GLUCOSE 128, CALCIUM 7.7, FERRITIN 362, CRP 14.70, TOTAL PROTEIN 5.5, ALBUMIN 2.1. AN ABG WAS REPEATED THIS MORNING AND REVEALED: PH 7.320, PC02 67.0, P02 62.0, HC03 34.5, 02 SATURATION 89.0, BASE EXCESS 6.3. SPUTUM CULTURES REVEAL GROWTH OF E.COLI AND MRSA. A CHEST XRAY WAS OBTAINED AND REVEALED: Probable bilateral pneumonia from COVID-19 infection. There is probable CHF and pulmonary edema could contribute to the densities. Prominence of the aortic arch is seen which could be projectional. Follow-up PA and lateral views of the chest may be useful to assure no true enlargement. SHE IS CURRENTLY RECEIVING 1/2NS AT 75 ML/HR, INVANZ 1G IV DAILY AND VANCOMYCIN 1G IV Q12H, ZINC SULFATE 220MG PO DAILY, ROBITUSSIN DM 10ML PO QID, REMDESIVIR 100MG IV DAILY, DUONEBS QID, PULMICORT NEBS BID, AND SOLU-MEDROL 80MG IV Q8H. WE WILL CONTINUE WITH CURRENT PLAN OF CARE TODAY. OTHERWISE, WE PLAN TO FOLLOW UP WITH AM LABS, CHEST XRAY, AND ABG AND CONTINUE TO MONITOR. - Past Medical Family Social History Past Med/Fam/Surg Hx: No changes since H&P Allergies: Allergies codeine Allergy (Verified 02/06/17 22:08) hydromorphone [From Dilaudid] Allergy (Verified 02/06/17 22:08) influenza virus vaccine qs 1721-7102 (36 mos, up) [From Single Use EZ Flu] Allergy (Verified 03/24/17 18:04) meperidine [From Demerol] Allergy (Verified 02/06/17 22:08) prednisone Allergy (Verified 02/06/17 22:08) - Review of Systems ROS: No change since H&P - Vital Signs and I&O's Vital Signs: Temperature 98.2 F Pulse Rate 73 Respiratory Rate 18 Blood Pressure [Left Arm] 120/56 Blood Pressure 150/66 O2 Sat by Pulse Oximetry 86 Intake and Output: Intake & Output 12/21/19 12/22/19 12/23/19 12/24/19 11:59 11:59 11:59 11:59 Intake Total 1945 / 1945 2365 / 2365 4391 / 4391 1379 / 1379 Output Total 1100 / 1100 960 / 960 1375 / 1375 600 / 600 Balance 845 / 845 1405 / 1405 3016 / 3016 779 / 779 - Physical Exam Oriented: Normal Eyes: Normal Ear: Normal Nose: Normal Throat: Normal Respiratory: Generalized, Diminished, Wheezes, Rhonchi Cardiovascular: Normal : Normal Auscultation: Bowel Sounds: Normal Tenderness: Normal Skin: Normal Musculoskeletal: Normal Psychiatric: Normal Mood Description: Calm Affect: Normal Speech Pattern: Clear - Laboratory and Diagnostics Result Diagrams: 12/23/19 04:35 12/23/19 04:35 Labs: 12/17/19 15:03 Blood Blood Culture - Final 12/17/19 15:00 Blood Blood Culture - Final 12/17/19 16:30 Sputum - Expectorated Sputum Sputum Culture - Final Escherichia Coli Methicillin Resis Staph Aureus 12/17/19 16:30 Sputum - Expectorated Sputum - Final Laboratory WBC 13.5 X10^3/uL (3.6-10.0) H 12/23/19 04:35 RBC 3.86 X10^6/uL (3.5-5.4) 12/23/19 04:35 Hgb 11.2 g/dL (12.0-16.0) L 12/23/19 04:35 Hct 35.3 % (36.0-47.0) L 12/23/19 04:35 MCV 91.4 fL (80.0-100.0) 12/23/19 04:35 MCH 29.1 pg (27.0-34.0) 12/23/19 04:35 MCHC 31.8 g/dL (33.0-35.0) L 12/23/19 04:35 RDW 14.4 % (11.6-16.5) 12/23/19 04:35 Plt Count 317 X10^3/uL (150.0-450.0) 12/23/19 04:35 Plt Count Comment Adequate (ADEQUATE) 12/23/19 04:35 MPV 7.1 fL (7.4-11.0) L 12/23/19 04:35 Neut % (Auto) 94.8 % (42.0-75.0) H 12/23/19 04:35 Lymph % (Auto) 2.2 % (21.0-51.0) L 12/23/19 04:35 [place] % (Auto) 2.9 % (0.0-13.0) 12/23/19 04:35 Eos % (Auto) 0.0 % (0.9-2.9) L 12/23/19 04:35 Baso % (Auto) 0.1 % (0.2-1.0) L 12/23/19 04:35 Neut # (Auto) 12.8 x10^3/uL (2.2-4.8) H 12/23/19 04:35 Lymph # (Auto) 0.3 X10^3/uL (1.3-2.9) L 12/23/19 04:35 [place] # (Auto) 0.4 x10^3/uL (0.3-0.8) 12/23/19 04:35 Eos # (Auto) 0.0 x10^3/uL (0.0-0.2) 12/23/19 04:35 Baso # (Auto) 0.0 X10^3/uL (0.0-0.1) 12/23/19 04:35 Absolute Nucleated RBC 0.0 /100WBC 12/23/19 04:35 Total Counted 100 12/23/19 04:35 Neutrophils % (Manual) 97 % (39-76) H 12/23/19 04:35 Band Neutrophils % 1 % (0-10) 12/22/19 04:29 Lymphocytes % (Manual) 2 % (13-43) L 12/23/19 04:35 Monocytes % (Manual) 1 % (4-9) L 12/23/19 04:35 Plt Morphology Comment Normal (NORMAL) 12/23/19 04:35 RBC Morphology Normal (NORMAL) 12/23/19 04:35 Sample Site L rad 12/23/19 04:13 ABG pH 7.320 (7.35-7.45) L 12/23/19 04:13 ABG pCO2 67.0 mmHg (35.0-45.0) H* 12/23/19 04:13 ABG pO2 62.0 mmHg (80.0-100.0) L 12/23/19 04:13 ABG HCO3 34.5 mmol/L (22-26) H* 12/23/19 04:13 ABG O2 Saturation 89.0 % (90-100) L 12/23/19 04:13 ABG Base Excess 6.3 mmol/L (-2.0-2.0) H 12/23/19 04:13 Triston Test Poss 12/23/19 04:13 A-a Gradient 567.0 mmHg 12/23/19 04:13 FiO2 100.0 12/23/19 04:13 Blood Gas Comments Quinten well ae 12/23/19 04:13 Sodium 137 mmol/L (136-145) 12/23/19 04:35 Corrected Sodium 138 mmol/L (136-145) 12/23/19 04:35 Potassium 5.0 mmol/L (3.5-5.1) 12/23/19 04:35 Chloride 103 mmol/L (98-107) 12/23/19 04:35 Carbon Dioxide 30.2 mmol/L (21-32) 12/23/19 04:35 BUN 25 mg/dL (7-18) H 12/23/19 04:35 Creatinine 0.91 mg/dL (0.55-1.02) 12/23/19 04:35 Creatinine 1.01 mg/dL (0.55-1.02) 12/23/19 04:35 Est GFR (MDRD) Af Amer > 60 (>60) 12/23/19 04:35 Est GFR (MDRD) Non-Af 56 (>60) L 12/23/19 04:35 Glucose 128 mg/dL (65-99) H 12/23/19 04:35 Calcium 7.7 mg/dL (8.5-10.1) L 12/23/19 04:35 Corrected Calcium 9.2 mg/dL (8.5-10.1) 12/23/19 04:35 Ferritin 362 ng/mL (8-252) H 12/23/19 04:35 Total Bilirubin 0.20 mg/dL (0.2-1.0) 12/23/19 04:35 AST 29 Units/L (15-37) 12/23/19 04:35 ALT 30 Units/L (12-78) 12/23/19 04:35 Alkaline Phosphatase 79 Units/L (46-116) 12/23/19 04:35 C-Reactive Protein 14.70 mg/L (0-3.0) H 12/23/19 04:35 Total Protein 5.5 g/dL (6.4-8.2) L 12/23/19 04:35 Albumin 2.1 g/dL (3.4-5.0) L 12/23/19 04:35 Globulin 3.4 g/dL (2.5-4.5) 12/23/19 04:35 Albumin/Globulin Ratio 0.6 Ratio (1.1-2.1) L 12/23/19 04:35 Specimen Type Catherized urine 12/18/19 11:45 Urine Color Pale yellow (YELLOW) 12/18/19 11:45 Urine Appearance Clear (CLEAR) 12/18/19 11:45 Urine pH 6.0 (5.0 - 8.0) 12/18/19 11:45 Ur Specific [place] 1.015 (1.000-1.030) 12/18/19 11:45 Urine Protein 3+ (NEGATIVE) 12/18/19 11:45 Urine Glucose (UA) Negative (NEGATIVE) 12/18/19 11:45 Urine Ketones 3+ (NEGATIVE) 12/18/19 11:45 Urine Occult Blood 2+ (NEGATIVE) 12/18/19 11:45 Urine Nitrite Negative (NEGATIVE) 12/18/19 11:45 Urine Bilirubin Negative (NEGATIVE) 12/18/19 11:45 Urine Urobilinogen Normal (NORMAL) 12/18/19 11:45 Ur Leukocyte Esterase Negative (NEGATIVE) 12/18/19 11:45 Urine RBC 0-2 /HPF (0-3) 12/18/19 11:45 Urine WBC None seen /HPF (0-5) 12/18/19 11:45 Ur Squamous Epith Cells Negative /HPF (NEGATIVE) 12/18/19 11:45 Amorphous Sediment Trace /HPF (NEGATIVE) 12/18/19 11:45 Urine Bacteria Negative /HPF (NEGATIVE) 12/18/19 11:45 Granular Casts Rare /LPF (NEGATIVE) 12/18/19 11:45 Urine Mucus Few /HPF (NEGATIVE) 12/18/19 11:45 Ur Culture Indicated? No/not indicated 12/18/19 11:45 Vancomycin Trough 21.4 ug/mL (15-20) H* 12/23/19 04:35 - Plan (1) COVID-19 Status: Acute Plan: BIPAP, 1/2NS AT 75 ML/HR, INVANZ 1G IV DAILY, VANCOMYCIN 1G IV Q12H, ZINC SULFATE 220MG PO DAILY, ROBITUSSIN DM 10ML PO QID, REMDESIVIR 200MG IV X 1 DOSE, THEN 100MG IV DAILY, ACTEMRA 400MG IV X 1 DOSE, DUONEBS QID, PULMICORT NEBS BID, AND SOLU-MEDROL 80MG IV Q8H. (2) Pneumonia Status: Acute Qualifiers: Pneumonia type: due to unspecified organism Laterality: unspecified laterality Lung location: unspecified part of lung Qualified Code(s): J18.9 - Pneumonia, unspecified organism (3) Hypoxia Status: Acute
[2019-12-23] MEDS: CRESTOR TAB 10 MG PO SCH (21:15)
[2019-12-23] MEDS: VANCOMYCIN HCL 750 MG VIAL 750 MG in D5W 250 ML IV 250 ML IV SCH (21:15)
[2019-12-23] MEDS: KLONOPIN TAB 1 MG PO SCH (21:15)
[2019-12-23] MEDS: MUCINEX EXPECTORANT PO SCH (21:15)
[2019-12-23] MEDS: XARELTO PO SCH (21:15)
[2019-12-24] MEDS ORDERED: NS 1/2 1000 ML IV 1,000 ML IV ONE ×2 (01:46→18:02)
[2019-12-24] MEDS: MORPHINE SULFATE INJ 2 MG INJ IVP SCH ×6 (02:04→22:45)
[2019-12-24] MEDS: NS 1/2 1000 ML IV 1,000 ML IV SCH ×3 (02:06→18:32)
[2019-12-24 05:09] LABS: ABG BASE EXCESS 8.1 mmol/L (-2.0-2.0)
[2019-12-24 05:10] LABS: ABG ALLEN TEST POS; ABG HCO3 36.1 mmol/L (22-26)
[2019-12-24 05:27] LABS: BASOPHILS % (AUTO) 0 % (0.2-1.0); HEMATOCRIT 33.2 % (36.0-47.0); HEMOGLOBIN 10.7 g/dL (12.0-16.0); LYMPHOCYTES # (AUTO) 0.3 X10^3/uL (1.3-2.9); LYMPHOCYTES % (AUTO) 1.9 % (21.0-51.0); MEAN CORPUSCULAR HEMOGLOBIN 29.2 pg (27.0-34.0); MEAN CORPUSCULAR HGB CONC 32.1 g/dL (33.0-35.0); MEAN CORPUSCULAR VOLUME 90.9 fL (80.0-100.0); MEAN PLATELET VOLUME 7.1 fL (7.4-11.0); MONOCYTES # (AUTO) 0.5 x10^3/uL (0.3-0.8); MONOCYTES % (AUTO) 3.2 % (0.0-13.0); NEUTROPHILS # (AUTO) 14.3 x10^3/uL (2.2-4.8); NEUTROPHILS % (AUTO) 94.9 % (42.0-75.0); PLATELET COUNT 312 X10^3/uL (150.0-450.0); RED BLOOD COUNT 3.66 X10^6/uL (3.5-5.4); RED CELL DISTRIBUTION WIDTH 14.2 % (11.6-16.5)
[2019-12-24 05:47] LABS: ALANINE AMINOTRANSFERASE 28 Units/L (12-78); ALBUMIN 1.8 g/dL (3.4-5.0); ALKALINE PHOSPHATASE 79 Units/L (46-116); ASPARTATE AMINO TRANSFERASE 25 Units/L (15-37); BLOOD UREA NITROGEN 27 mg/dL (7-18); CALCIUM 7.8 mg/dL (8.5-10.1); CARBON DIOXIDE 32.8 mmol/L (21-32); CHLORIDE 103 mmol/L (98-107); COR CA(FOR HYPOALB) 9.6 mg/dL (8.5-10.1); COR NA(FOR HYPERGLY) 137 mmol/L (136-145); CREATININE 0.77 mg/dL (0.55-1.02); SODIUM 136 mmol/L (136-145); TOTAL PROTEIN 4.9 g/dL (6.4-8.2); eGFR NON BLACK RACES > 60 (>60)
[2019-12-24] MEDS: NORCO 7.5/325 MG TAB PO SCH ×3 (05:50→22:45)
[2019-12-24] MEDS: NEURONTIN CAP 300 MG PO SCH ×3 (05:52→21:50)
[2019-12-24] MEDS: SOLU-Medrol 40 MG VIAL IVP SCH ×3 (05:52→21:50)
--- NOTE | 2019-12-24 06:07 | RAD ---
HISTORYSOB, COVID-19, PNEUMONIASTUDYCHEST, 1 VIEWCOMPARISON[One day prior]TECHNIQUE[AP chest]FINDINGS[Right Shoulder hardware noted. Cardiac silhouette is largely silhouetted. No significant change in diffuse bilateral airspace disease. No pneumothorax.]IMPRESSION[No significant change in diffuse bilateral airspace disease.]Electronically signed by: Orlando Garcia (Dec 24, 2019 06:06:24)
[2019-12-24 06:28] LABS: PLATELET MORPHOLOGY COMMENT NORMAL (NORMAL)
[2019-12-24] MEDS: INVANZ INJ 1 GM VIAL 1 GM in NS 100 ML IV + SPIKE MINIBAG* 100 ML IV SCH (08:27)
[2019-12-24] MEDS: ROBITUSSIN DM PO SCH ×4 (08:29→21:45)
[2019-12-24] MEDS: PULMICORT NEB TX 0.5 MG NEB SCH ×2 (08:50→20:45)
[2019-12-24] MEDS: DUONEB 0.5 MG/3 MG (3 mL) NEB SCH ×4 (08:50→20:45)
[2019-12-24] MEDS: CITRACAL + VITAMIN D PO SCH ×3 (09:36→22:45)
[2019-12-24] MEDS: CELEBREX PO SCH (09:36)
[2019-12-24] MEDS: COLACE CAP 100 MG PO SCH ×2 (09:37→21:45)
[2019-12-24] MEDS: CLARITIN PO SCH (09:37)
[2019-12-24] MEDS: COREG TAB 12.5 MG PO SCH ×2 (09:38→21:45)
[2019-12-24] MEDS: FOLIC ACID TAB 1 MG PO SCH (09:39)
[2019-12-24] MEDS: FERROUS GLUCONATE PO SCH (09:39)
[2019-12-24] MEDS: NexIUM PO SCH (09:40)
[2019-12-24] MEDS: PLAVIX PO SCH (09:41)
[2019-12-24] MEDS: POTASSIUM CHLORIDE LIQ 20 MEQ UDC PO SCH (09:42)
[2019-12-24] MEDS: PROzac PO SCH (09:43)
[2019-12-24] MEDS: SINGULAIR TAB 10 MG PO SCH (09:43)
[2019-12-24] MEDS: TAB-A-VITE PO SCH (09:44)
[2019-12-24] MEDS: VANCOMYCIN HCL 750 MG VIAL 750 MG in D5W 250 ML IV 250 ML IV SCH ×2 (09:45→21:50)
[2019-12-24] MEDS: VITAMIN C PO SCH (09:45)
[2019-12-24] MEDS: VSL#3 PO SCH (09:46)
[2019-12-24] MEDS: ZINC SULFATE PO SCH (09:46)
[2019-12-24] MEDS: LASIX PO SCH (09:47)
[2019-12-24] MEDS: VITAMIN D3 125 mcg (5,000 UNITS) PO SCH (09:54)
[2019-12-24] MEDS: MUCINEX EXPECTORANT PO SCH (21:45)
[2019-12-24] MEDS: KLONOPIN TAB 1 MG PO SCH (21:45)
[2019-12-24] MEDS: CRESTOR TAB 10 MG PO SCH (21:45)
[2019-12-24] MEDS: XARELTO PO SCH (21:50)
[2019-12-25] MEDS: MORPHINE SULFATE INJ 2 MG INJ IVP SCH ×6 (01:52→21:25)
[2019-12-25 05:31] LABS: BASOPHILS % (AUTO) 0.1 % (0.2-1.0); EOSINOPHILS % (AUTO) 0.2 % (0.9-2.9); HEMATOCRIT 35.4 % (36.0-47.0); HEMOGLOBIN 11.4 g/dL (12.0-16.0); LYMPHOCYTES # (AUTO) 0.9 X10^3/uL (1.3-2.9); LYMPHOCYTES % (AUTO) 6.9 % (21.0-51.0); MEAN CORPUSCULAR HGB CONC 32.3 g/dL (33.0-35.0); MEAN PLATELET VOLUME 6.9 fL (7.4-11.0); MONOCYTES # (AUTO) 0.8 x10^3/uL (0.3-0.8); MONOCYTES % (AUTO) 6.1 % (0.0-13.0); NEUTROPHILS # (AUTO) 11.6 x10^3/uL (2.2-4.8); NEUTROPHILS % (AUTO) 86.7 % (42.0-75.0); PLATELET COUNT 326 X10^3/uL (150.0-450.0); RED BLOOD COUNT 3.93 X10^6/uL (3.5-5.4); RED CELL DISTRIBUTION WIDTH 14.3 % (11.6-16.5); WHITE BLOOD COUNT 13.4 X10^3/uL (3.6-10.0)
[2019-12-25 05:49] LABS: ALANINE AMINOTRANSFERASE 19 Units/L (12-78); ALBUMIN 1.8 g/dL (3.4-5.0); ALKALINE PHOSPHATASE 81 Units/L (46-116); ASPARTATE AMINO TRANSFERASE 21 Units/L (15-37); BLOOD UREA NITROGEN 27 mg/dL (7-18); CALCIUM 8.1 mg/dL (8.5-10.1); CARBON DIOXIDE 34.3 mmol/L (21-32); CHLORIDE 102 mmol/L (98-107); COR CA(FOR HYPOALB) 9.9 mg/dL (8.5-10.1); CREATININE 0.77 mg/dL (0.55-1.02); SODIUM 137 mmol/L (136-145); TOTAL PROTEIN 4.8 g/dL (6.4-8.2); eGFR NON BLACK RACES > 60 (>60)
--- NOTE | 2019-12-25 05:57 | RAD ---
HISTORYSOBSTUDYPortable AP [id number] cardiomegaly although cardiac margins remain partly obscur ed by extensive confluent airspace disease in both lungs. The hilar structures and pulmonary vascular markings are likewise obscured. No pneumothorax is seen.IMPRESSIONStable cardiomegaly with extensive diffuse bilateral airspace disease consistent with pneumonia and/or pulmonary edema. There is no sig nificant change.Electronically signed by: VILLA PLEITEZ (Dec 25, 2019 05:56:57)
[2019-12-25 06:19] LABS: ABG ALLEN TEST POS; ABG BASE EXCESS 12.7 mmol/L (-2.0-2.0); ABG HCO3 41.2 mmol/L (22-26); FRACTIONATED INSPIRED OXYGEN 100
[2019-12-25] MEDS ORDERED: NS 1/2 1000 ML IV 1,000 ML IV ONE ×2 (06:28→21:46)
[2019-12-25] MEDS: NEURONTIN CAP 300 MG PO SCH ×3 (06:44→21:30)
[2019-12-25] MEDS: NORCO 7.5/325 MG TAB PO SCH ×3 (06:45→21:28)
[2019-12-25] MEDS: SOLU-Medrol 40 MG VIAL IVP SCH ×3 (06:45→21:28)
[2019-12-25] MEDS: NS 1/2 1000 ML IV 1,000 ML IV SCH ×2 (06:47→21:26)
[2019-12-25] MEDS ORDERED: PHARMACY COMMENT IV NR (08:30)
[2019-12-25] MEDS: PULMICORT NEB TX 0.5 MG NEB SCH ×2 (08:40→20:30)
[2019-12-25] MEDS: DUONEB 0.5 MG/3 MG (3 mL) NEB SCH ×4 (08:40→20:30)
[2019-12-25] MEDS: CELEBREX PO SCH (13:23)
[2019-12-25] MEDS: ZINC SULFATE PO SCH (13:24)
[2019-12-25] MEDS: PLAVIX PO SCH (13:24)
[2019-12-25] MEDS: VSL#3 PO SCH (13:24)
[2019-12-25] MEDS: VITAMIN C PO SCH (13:24)
[2019-12-25] MEDS: SINGULAIR TAB 10 MG PO SCH (13:24)
[2019-12-25] MEDS: NexIUM PO SCH (13:24)
[2019-12-25] MEDS: COLACE CAP 100 MG PO SCH ×2 (13:24→21:27)
[2019-12-25] MEDS: INVANZ INJ 1 GM VIAL 1 GM in NS 100 ML IV + SPIKE MINIBAG* 100 ML IV SCH (13:24)
[2019-12-25] MEDS: CLARITIN PO SCH (13:24)
[2019-12-25] MEDS: PROzac PO SCH (13:24)
[2019-12-25] MEDS: ROBITUSSIN DM PO SCH ×4 (13:24→21:30)
[2019-12-25] MEDS: VITAMIN D3 125 mcg (5,000 UNITS) PO SCH (13:24)
[2019-12-25] MEDS: POTASSIUM CHLORIDE LIQ 20 MEQ UDC PO SCH (13:24)
[2019-12-25] MEDS: FOLIC ACID TAB 1 MG PO SCH (13:24)
[2019-12-25] MEDS: CITRACAL + VITAMIN D PO SCH ×2 (13:24→21:26)
[2019-12-25] MEDS: VANCOMYCIN HCL 750 MG VIAL 750 MG in D5W 250 ML IV 250 ML IV SCH ×2 (13:24→22:06)
[2019-12-25] MEDS: TAB-A-VITE PO SCH (13:24)
[2019-12-25] MEDS: COREG TAB 12.5 MG PO SCH ×2 (13:24→21:27)
[2019-12-25] MEDS: FERROUS GLUCONATE PO SCH (13:24)
[2019-12-25] MEDS: LASIX PO SCH (13:24)
[2019-12-25] MEDS: CRESTOR TAB 10 MG PO SCH (21:27)
[2019-12-25] MEDS: KLONOPIN TAB 1 MG PO SCH (21:29)
[2019-12-25] MEDS: XARELTO PO SCH (21:29)
[2019-12-25] MEDS: MUCINEX EXPECTORANT PO SCH (21:29)
[2019-12-26] MEDS: MORPHINE SULFATE INJ 2 MG INJ IVP SCH ×6 (01:41→21:34)
[2019-12-26 05:25] LABS: ABG BASE EXCESS 13.3 mmol/L (-2.0-2.0); ABG HCO3 40.9 mmol/L (22-26)
[2019-12-26 05:26] LABS: ABG ALLEN TEST POS; FRACTIONATED INSPIRED OXYGEN 100
[2019-12-26] MEDS: NORCO 7.5/325 MG TAB PO SCH ×3 (05:29→21:40)
[2019-12-26] MEDS: NEURONTIN CAP 300 MG PO SCH ×3 (05:29→21:39)
[2019-12-26] MEDS: SOLU-Medrol 40 MG VIAL IVP SCH ×3 (05:30→21:40)
[2019-12-26 05:40] LABS: BASOPHILS % (AUTO) 0.3 % (0.2-1.0); HEMATOCRIT 33.8 % (36.0-47.0); LYMPHOCYTES # (AUTO) 0.4 X10^3/uL (1.3-2.9); LYMPHOCYTES % (AUTO) 3.7 % (21.0-51.0); MEAN CORPUSCULAR HEMOGLOBIN 29.3 pg (27.0-34.0); MEAN CORPUSCULAR HGB CONC 32.5 g/dL (33.0-35.0); MEAN CORPUSCULAR VOLUME 90.2 fL (80.0-100.0); MEAN PLATELET VOLUME 6.8 fL (7.4-11.0); MONOCYTES # (AUTO) 0.4 x10^3/uL (0.3-0.8); NEUTROPHILS # (AUTO) 10.3 x10^3/uL (2.2-4.8); PLATELET COUNT 287 X10^3/uL (150.0-450.0); RED BLOOD COUNT 3.75 X10^6/uL (3.5-5.4); RED CELL DISTRIBUTION WIDTH 14.5 % (11.6-16.5); WHITE BLOOD COUNT 11.1 X10^3/uL (3.6-10.0)
[2019-12-26 05:50] LABS: PLATELET MORPHOLOGY COMMENT NORMAL (NORMAL)
[2019-12-26 05:52] LABS: ALANINE AMINOTRANSFERASE 19 Units/L (12-78); ALBUMIN 1.8 g/dL (3.4-5.0); ALKALINE PHOSPHATASE 78 Units/L (46-116); ASPARTATE AMINO TRANSFERASE 23 Units/L (15-37); BLOOD UREA NITROGEN 20 mg/dL (7-18); CARBON DIOXIDE 35.5 mmol/L (21-32); CHLORIDE 101 mmol/L (98-107); COR CA(FOR HYPOALB) 9.8 mg/dL (8.5-10.1); COR NA(FOR HYPERGLY) 138 mmol/L (136-145); CREATININE 0.68 mg/dL (0.55-1.02); SODIUM 137 mmol/L (136-145); TOTAL PROTEIN 4.7 g/dL (6.4-8.2); eGFR NON BLACK RACES > 60 (>60)
--- NOTE | 2019-12-26 06:10 | RAD ---
HISTORYSOBSTUDYCHEST, 1 [id number] trachea is midline. The cardiac silhouette is enlarged with a tortuous thoracic aorta. Extensive interstitial lung changes throughout the right and left chest are observed. The bony thorax is unremarkable.IMPRESSIONExtensive interstitial lung changes throughout the right and left chest are observed. Focal airspace consolidation of the right and left base is observed.Electronically signed by: REMA MOORE (Dec 26, 2019 06:09:15)
[2019-12-26] MEDS: INVANZ INJ 1 GM VIAL 1 GM in NS 100 ML IV + SPIKE MINIBAG* 100 ML IV SCH (08:39)
[2019-12-26] MEDS: VSL#3 PO SCH (08:39)
[2019-12-26] MEDS: CELEBREX PO SCH (08:43)
[2019-12-26] MEDS: ZINC SULFATE PO SCH (08:43)
[2019-12-26] MEDS: VITAMIN D3 125 mcg (5,000 UNITS) PO SCH (08:44)
[2019-12-26] MEDS: VANCOMYCIN HCL 750 MG VIAL 750 MG in D5W 250 ML IV 250 ML IV SCH ×2 (08:45→21:37)
[2019-12-26] MEDS: ROBITUSSIN DM PO SCH ×4 (08:45→21:37)
[2019-12-26] MEDS: TAB-A-VITE PO SCH (08:45)
[2019-12-26] MEDS: SINGULAIR TAB 10 MG PO SCH (08:46)
[2019-12-26] MEDS: PROzac PO SCH (08:46)
[2019-12-26] MEDS: VITAMIN C PO SCH (08:47)
[2019-12-26] MEDS: POTASSIUM CHLORIDE LIQ 20 MEQ UDC PO SCH (08:47)
[2019-12-26] MEDS: FOLIC ACID TAB 1 MG PO SCH (08:48)
[2019-12-26] MEDS: PLAVIX PO SCH (08:48)
[2019-12-26] MEDS: NexIUM PO SCH (08:53)
[2019-12-26] MEDS: CITRACAL + VITAMIN D PO SCH ×2 (08:54→21:34)
[2019-12-26] MEDS: COLACE CAP 100 MG PO SCH ×2 (08:54→21:35)
[2019-12-26] MEDS: COREG TAB 12.5 MG PO SCH ×2 (08:55→21:35)
[2019-12-26] MEDS: CLARITIN PO SCH (08:55)
[2019-12-26] MEDS: FERROUS GLUCONATE PO SCH (08:55)
[2019-12-26] MEDS: DUONEB 0.5 MG/3 MG (3 mL) NEB SCH ×4 (09:40→21:34)
[2019-12-26] MEDS: PULMICORT NEB TX 0.5 MG NEB SCH ×2 (09:40→21:34)
[2019-12-26] MEDS: NS 1/2 1000 ML IV 1,000 ML IV SCH ×3 (11:16→23:06)
[2019-12-26] MEDS: MUCOMYST (RESPIRATORY USE ONLY) NEB SCH ×2 (11:55→21:34)
[2019-12-26] MEDS ORDERED: NS 1/2 1000 ML IV 1,000 ML IV ONE (15:41)
--- NOTE | 2019-12-26 19:04 | PCM.PROG ---
Progress Note - Progress Note for Day of Date of Exam: 12/24/19 - Subjective Subjective: IS BEING TREATED FOR PNEUMONIA DUE TO COVID-19, PNEUMONIA, AND HYPOXIA. TODAY, SHE IS LYING IN BED WITH EYES CLOSED ON MORNING ROUNDS. SHE AWAKENS AND RESPONDS TO VERBAL STIMULI. SHE CONTINUES WITH SHORTNESS OF BREATH AND COUGH TODAY, BUT REPORTS SLIGHT IMPROVEMENT IN SYMPTOMS. SHE IS NOTED TO BE ON HEATED HIGH FLOW OXYGEN ON MORNING ROUNDS. SHE SWITCHES BETWEEN BIPAP TO HEATED HIGH FLOW. ON EXAMINATION, HEART IS REGULAR IN RATE AND RHYTHM. BILATERAL LUNGS ARE NOTED WITH SCATTERED WHEEZING AND RHONCHI THROUGHOUT. ABDOMEN IS ROUND, SOFT, AND NON-TENDER WITH NORMAL BOWEL SOUNDS NOTED IN ALL QUADRANTS. HER VITALS THIS MORNING ARE: 98.4-59-17-94%BIPAP-128/61. LABS WERE OBTAINED. ABNORMAL LAB VALUES INCLUDE THE FOLLOWING: WBC 15.0, HGB 10.7, HCT 35.4, POTASSIUM 5.2, CARBON DIOXIDE 32.8, BUN 27, GLUCOSE 127, CALCIUM 7.8, FERRITIN 313, CRP 7.90, TOTAL PROTEIN 4.9, ALBUMIN 1.8. AN ABG WAS REPEATED THIS MORNING AND REVEALED: PH 7.340, PC02 67.0, P02 63.0, HC03 36.1, 02 SATURATION 90.0, BASE EXCESS 8.1, FIO2 100.0. SPUTUM CULTURES REVEAL GROWTH OF E.COLI AND MRSA. A CHEST XRAY WAS OBTAINED AND REVEALED: Probable bilateral pneumonia from COVID- 19 infection. There is probable CHF and pulmonary edema could contribute to the densities. Prominence of the aortic arch is seen which could be projectional. Follow-up PA and lateral views of the chest may be useful to assure no true enlargement. SHE IS CURRENTLY RECEIVING 1/2NS AT 75 ML/HR, INVANZ 1G IV DAILY AND VANCOMYCIN 1G IV Q12H, ZINC SULFATE 220MG PO DAILY, ROBITUSSIN DM 10ML PO QID, DUONEBS QID, PULMICORT NEBS BID, AND SOLU-MEDROL 80MG IV Q8H. WE WILL CONTINUE WITH CURRENT PLAN OF CARE TODAY. OTHERWISE, WE PLAN TO FOLLOW UP WITH AM LABS, CHEST XRAY, AND ABG AND CONTINUE TO MONITOR. - Past Medical Family Social History Past Med/Fam/Surg Hx: No changes since H&P Allergies: Allergies codeine Allergy (Verified 02/06/17 22:08) hydromorphone [From Dilaudid] Allergy (Verified 02/06/17 22:08) influenza virus vaccine qs 3566-3090 (36 mos, up) [From Single Use EZ Flu] Allergy (Verified 03/24/17 18:04) meperidine [From Demerol] Allergy (Verified 02/06/17 22:08) prednisone Allergy (Verified 02/06/17 22:08) - Review of Systems ROS: No change since H&P - Vital Signs and I&O's Vital Signs: Temperature 98.7 F Pulse Rate 73 Respiratory Rate 28 Blood Pressure [Left Arm] 120/56 Blood Pressure 136/63 O2 Sat by Pulse Oximetry 92 Intake and Output: Intake & Output 12/24/19 12/25/19 12/26/19 12/27/19 11:59 11:59 11:59 11:59 Intake Total 2779 / 2779 2440 / 2440 2893 / 2893 2450 / 2450 Output Total 1900 / 1900 3201 / 3201 3000 / 3000 1300 / 1300 Balance 879 / 879 -761 / -761 -107 / -107 1150 / 1150 - Physical Exam Oriented: Normal Eyes: Normal Ear: Normal Nose: Normal Throat: Normal Respiratory: Generalized, Diminished, Wheezes, Rhonchi Cardiovascular: Normal : Normal Auscultation: Bowel Sounds: Normal Tenderness: Normal Skin: Normal Musculoskeletal: Normal Psychiatric: Normal Mood Description: Calm Affect: Normal Speech Pattern: Clear, Appropriate - Laboratory and Diagnostics Result Diagrams: 12/26/19 04:45 12/26/19 04:45 Labs: 12/17/19 15:03 Blood Blood Culture - Final 12/17/19 15:00 Blood Blood Culture - Final 12/17/19 16:30 Sputum - Expectorated Sputum Sputum Culture - Final Escherichia Coli Methicillin Resis Staph Aureus 12/17/19 16:30 Sputum - Expectorated Sputum - Final Laboratory WBC 11.1 X10^3/uL (3.6-10.0) H 12/26/19 04:45 RBC 3.75 X10^6/uL (3.5-5.4) 12/26/19 04:45 Hgb 11.0 g/dL (12.0-16.0) L 12/26/19 04:45 Hct 33.8 % (36.0-47.0) L 12/26/19 04:45 MCV 90.2 fL (80.0-100.0) 12/26/19 04:45 MCH 29.3 pg (27.0-34.0) 12/26/19 04:45 MCHC 32.5 g/dL (33.0-35.0) L 12/26/19 04:45 RDW 14.5 % (11.6-16.5) 12/26/19 04:45 Plt Count 287 X10^3/uL (150.0-450.0) 12/26/19 04:45 Plt Count Comment Adequate (ADEQUATE) 12/26/19 04:45 MPV 6.8 fL (7.4-11.0) L 12/26/19 04:45 Neut % (Auto) 92.0 % (42.0-75.0) H 12/26/19 04:45 Lymph % (Auto) 3.7 % (21.0-51.0) L 12/26/19 04:45 [place] % (Auto) 4.0 % (0.0-13.0) 12/26/19 04:45 Eos % (Auto) 0.0 % (0.9-2.9) L 12/26/19 04:45 Baso % (Auto) 0.3 % (0.2-1.0) 12/26/19 04:45 Neut # (Auto) 10.3 x10^3/uL (2.2-4.8) H 12/26/19 04:45 Lymph # (Auto) 0.4 X10^3/uL (1.3-2.9) L 12/26/19 04:45 [place] # (Auto) 0.4 x10^3/uL (0.3-0.8) 12/26/19 04:45 Eos # (Auto) 0.0 x10^3/uL (0.0-0.2) 12/26/19 04:45 Baso # (Auto) 0.0 X10^3/uL (0.0-0.1) 12/26/19 04:45 Absolute Nucleated RBC 0.0 /100WBC 12/26/19 04:45 Total Counted 100 12/26/19 04:45 Neutrophils % (Manual) 90 % (39-76) H 12/26/19 04:45 Band Neutrophils % 1 % (0-10) 12/22/19 04:29 Lymphocytes % (Manual) 9 % (13-43) L 12/26/19 04:45 Monocytes % (Manual) 1 % (4-9) L 12/26/19 04:45 Plt Morphology Comment Normal (NORMAL) 12/26/19 04:45 RBC Morphology Normal (NORMAL) 12/26/19 04:45 Sample Site Rr 12/26/19 05:00 ABG pH 7.400 (7.35-7.45) 12/26/19 05:00 ABG pCO2 66.0 mmHg (35.0-45.0) H* 12/26/19 05:00 ABG pO2 74.0 mmHg (80.0-100.0) L 12/26/19 05:00 ABG HCO3 40.9 mmol/L (22-26) H* 12/26/19 05:00 ABG O2 Saturation 95.0 % (90-100) 12/26/19 05:00 ABG Base Excess 13.3 mmol/L (-2.0-2.0) H 12/26/19 05:00 Triston Test Pos 12/26/19 05:00 A-a Gradient 557.0 mmHg 12/26/19 05:00 FiO2 100 12/26/19 05:00 Blood Gas Comments Quinten well ae 12/26/19 05:00 Sodium 137 mmol/L (136-145) 12/26/19 04:45 Corrected Sodium 138 mmol/L (136-145) 12/26/19 04:45 Potassium 5.1 mmol/L (3.5-5.1) 12/26/19 04:45 Chloride 101 mmol/L (98-107) 12/26/19 04:45 Carbon Dioxide 35.5 mmol/L (21-32) H 12/26/19 04:45 BUN 20 mg/dL (7-18) H 12/26/19 04:45 Creatinine 0.68 mg/dL (0.55-1.02) 12/26/19 04:45 Est GFR (MDRD) Af Amer > 60 (>60) 12/26/19 04:45 Est GFR (MDRD) Non-Af > 60 (>60) 12/26/19 04:45 Glucose 131 mg/dL (65-99) H 12/26/19 04:45 Calcium 8.0 mg/dL (8.5-10.1) L 12/26/19 04:45 Corrected Calcium 9.8 mg/dL (8.5-10.1) 12/26/19 04:45 Ferritin 302 ng/mL (8-252) H 12/26/19 04:45 Total Bilirubin 0.30 mg/dL (0.2-1.0) 12/26/19 04:45 AST 23 Units/L (15-37) 12/26/19 04:45 ALT 19 Units/L (12-78) 12/26/19 04:45 Alkaline Phosphatase 78 Units/L (46-116) 12/26/19 04:45 C-Reactive Protein 4.10 mg/L (0-3.0) H 12/26/19 04:45 Total Protein 4.7 g/dL (6.4-8.2) L 12/26/19 04:45 Albumin 1.8 g/dL (3.4-5.0) L 12/26/19 04:45 Globulin 2.9 g/dL (2.5-4.5) 12/26/19 04:45 Albumin/Globulin Ratio 0.6 Ratio (1.1-2.1) L 12/26/19 04:45 Specimen Type Catherized urine 12/18/19 11:45 Urine Color Pale yellow (YELLOW) 12/18/19 11:45 Urine Appearance Clear (CLEAR) 12/18/19 11:45 Urine pH 6.0 (5.0 - 8.0) 12/18/19 11:45 Ur Specific [place] 1.015 (1.000-1.030) 12/18/19 11:45 Urine Protein 3+ (NEGATIVE) 12/18/19 11:45 Urine Glucose (UA) Negative (NEGATIVE) 12/18/19 11:45 Urine Ketones 3+ (NEGATIVE) 12/18/19 11:45 Urine Occult Blood 2+ (NEGATIVE) 12/18/19 11:45 Urine Nitrite Negative (NEGATIVE) 12/18/19 11:45 Urine Bilirubin Negative (NEGATIVE) 12/18/19 11:45 Urine Urobilinogen Normal (NORMAL) 12/18/19 11:45 Ur Leukocyte Esterase Negative (NEGATIVE) 12/18/19 11:45 Urine RBC 0-2 /HPF (0-3) 12/18/19 11:45 Urine WBC None seen /HPF (0-5) 12/18/19 11:45 Ur Squamous Epith Cells Negative /HPF (NEGATIVE) 12/18/19 11:45 Amorphous Sediment Trace /HPF (NEGATIVE) 12/18/19 11:45 Urine Bacteria Negative /HPF (NEGATIVE) 12/18/19 11:45 Granular Casts Rare /LPF (NEGATIVE) 12/18/19 11:45 Urine Mucus Few /HPF (NEGATIVE) 12/18/19 11:45 Ur Culture Indicated? No/not indicated 12/18/19 11:45 Vancomycin Trough 21.4 ug/mL (15-20) H* 12/23/19 04:35 - Plan (1) COVID-19 Status: Acute Plan: BIPAP, 1/2NS AT 75 ML/HR, INVANZ 1G IV DAILY, VANCOMYCIN 1G IV Q12H, ZINC SULFATE 220MG PO DAILY, ROBITUSSIN DM 10ML PO QID, DUONEBS QID, PULMICORT NEBS BID, AND SOLU-MEDROL 80MG IV Q8H. (2) Pneumonia Status: Acute Qualifiers: Pneumonia type: due to unspecified organism Laterality: unspecified laterality Lung location: unspecified part of lung Qualified Code(s): J18.9 - Pneumonia, unspecified organism (3) Hypoxia Status: Acute
[2019-12-26 19:58] LABS: CREATININE 0.82 mg/dL (0.55-1.02)
[2019-12-26] MEDS ORDERED: NYSTATIN POWDER TOP PRN (21:12)
[2019-12-26] MEDS ORDERED: NYSTATIN POWDER ONE (21:16)
[2019-12-26] MEDS: KLONOPIN TAB 1 MG PO SCH (21:36)
[2019-12-26] MEDS: CRESTOR TAB 10 MG PO SCH (21:36)
[2019-12-26] MEDS: MUCINEX EXPECTORANT PO SCH (21:37)
[2019-12-26] MEDS: XARELTO PO SCH (21:38)
[2019-12-27] MEDS: MORPHINE SULFATE INJ 2 MG INJ IVP SCH ×6 (01:33→21:02)
[2019-12-27] MEDS ORDERED: NS 1/2 1000 ML IV 1,000 ML IV ONE ×2 (05:18→20:53)
[2019-12-27] MEDS: NEURONTIN CAP 300 MG PO SCH ×3 (06:08→21:04)
[2019-12-27] MEDS: SOLU-Medrol 40 MG VIAL IVP SCH ×3 (06:09→21:05)
[2019-12-27] MEDS: NORCO 7.5/325 MG TAB PO SCH ×3 (06:09→21:04)
[2019-12-27] MEDS: NS 1/2 1000 ML IV 1,000 ML IV SCH ×2 (06:10→13:11)
[2019-12-27 06:18] LABS: BASOPHILS % (AUTO) 0.2 % (0.2-1.0); EOSINOPHILS # (AUTO) 0.1 x10^3/uL (0.0-0.2); HEMATOCRIT 33.9 % (36.0-47.0); LYMPHOCYTES % (AUTO) 8.8 % (21.0-51.0); MEAN CORPUSCULAR HEMOGLOBIN 29.1 pg (27.0-34.0); MEAN CORPUSCULAR HGB CONC 32.4 g/dL (33.0-35.0); MEAN CORPUSCULAR VOLUME 89.8 fL (80.0-100.0); MEAN PLATELET VOLUME 6.9 fL (7.4-11.0); MONOCYTES # (AUTO) 1.1 x10^3/uL (0.3-0.8); MONOCYTES % (AUTO) 9.5 % (0.0-13.0); NEUTROPHILS # (AUTO) 9.3 x10^3/uL (2.2-4.8); NEUTROPHILS % (AUTO) 80.5 % (42.0-75.0); PLATELET COUNT 262 X10^3/uL (150.0-450.0); RED BLOOD COUNT 3.77 X10^6/uL (3.5-5.4); RED CELL DISTRIBUTION WIDTH 14.3 % (11.6-16.5); WHITE BLOOD COUNT 11.6 X10^3/uL (3.6-10.0)
[2019-12-27 06:30] LABS: ABG BASE EXCESS 14.3 mmol/L (-2.0-2.0)
[2019-12-27 06:32] LABS: ABG ALLEN TEST POSS; ABG HCO3 41.8 mmol/L (22-26)
[2019-12-27 06:32] LABS: ALANINE AMINOTRANSFERASE 29 Units/L (12-78); ALBUMIN 1.8 g/dL (3.4-5.0); ALKALINE PHOSPHATASE 110 Units/L (46-116); ASPARTATE AMINO TRANSFERASE 36 Units/L (15-37); BLOOD UREA NITROGEN 19 mg/dL (7-18); CALCIUM 7.8 mg/dL (8.5-10.1); CARBON DIOXIDE 36.2 mmol/L (21-32); CHLORIDE 100 mmol/L (98-107); COR CA(FOR HYPOALB) 9.6 mg/dL (8.5-10.1); CREATININE 0.67 mg/dL (0.55-1.02); SODIUM 137 mmol/L (136-145); TOTAL PROTEIN 4.5 g/dL (6.4-8.2); eGFR NON BLACK RACES > 60 (>60)
--- NOTE | 2019-12-27 07:29 | RAD ---
HISTORYShort of breathSTUDYCHEST, 1 VIEWCOMPARISON[One day prior]TECHNIQUE[AP view of the chest.]FINDINGS[Cardiac silhouette is borderline in size. Slightly improved aeration compared to prior. There is persistent diffuse lower lung predominant airspace disease. Suspect small bilateral pleural effusions. No pneumothorax.Soft tissue attenuation limits evaluation.]IMPRESSION[Improved aeration in the upper lungs compared to prior study.]Electronically signed by: Orlando Garcia (Dec 27, 2019 07:29:06)
[2019-12-27] MEDS: PULMICORT NEB TX 0.5 MG NEB SCH ×2 (09:20→20:20)
[2019-12-27] MEDS: DUONEB 0.5 MG/3 MG (3 mL) NEB SCH ×4 (09:20→20:20)
[2019-12-27] MEDS: MUCOMYST (RESPIRATORY USE ONLY) NEB SCH ×2 (09:20→20:20)
[2019-12-27] MEDS: FOLIC ACID TAB 1 MG PO SCH (09:42)
[2019-12-27] MEDS: CELEBREX PO SCH (09:42)
[2019-12-27] MEDS: ZINC SULFATE PO SCH (09:43)
[2019-12-27] MEDS: VSL#3 PO SCH (09:43)
[2019-12-27] MEDS: PROzac PO SCH (09:44)
[2019-12-27] MEDS: VITAMIN C PO SCH (09:45)
[2019-12-27] MEDS: TAB-A-VITE PO SCH (09:45)
[2019-12-27] MEDS: VITAMIN D3 125 mcg (5,000 UNITS) PO SCH (09:46)
[2019-12-27] MEDS: VANCOMYCIN HCL 750 MG VIAL 750 MG in D5W 250 ML IV 250 ML IV SCH ×2 (09:50→20:20)
[2019-12-27] MEDS: SINGULAIR TAB 10 MG PO SCH (09:51)
[2019-12-27] MEDS: ROBITUSSIN DM PO SCH ×4 (09:51→20:20)
[2019-12-27] MEDS: PLAVIX PO SCH (09:52)
[2019-12-27] MEDS: POTASSIUM CHLORIDE LIQ 20 MEQ UDC PO SCH (09:52)
[2019-12-27] MEDS: COLACE CAP 100 MG PO SCH ×2 (09:53→20:18)
[2019-12-27] MEDS: INVANZ INJ 1 GM VIAL 1 GM in NS 100 ML IV + SPIKE MINIBAG* 100 ML IV SCH (09:54)
[2019-12-27] MEDS: NexIUM PO SCH (09:54)
[2019-12-27] MEDS: FERROUS GLUCONATE PO SCH (09:56)
[2019-12-27] MEDS: COREG TAB 12.5 MG PO SCH ×2 (09:56→20:18)
[2019-12-27] MEDS: CLARITIN PO SCH (09:56)
[2019-12-27] MEDS: CITRACAL + VITAMIN D PO SCH ×2 (09:56→20:18)
[2019-12-27] MEDS: LASIX PO SCH (10:02)
--- NOTE | 2019-12-27 12:11 | PCM.PROG ---
Progress Note - Progress Note for Day of Date of Exam: 12/25/19 - Subjective Subjective: IS BEING TREATED FOR PNEUMONIA DUE TO COVID-19, PNEUMONIA, AND HYPOXIA. TODAY, SHE IS LYING IN BED WITH EYES CLOSED ON MORNING ROUNDS. SHE AWAKENS AND RESPONDS TO VERBAL STIMULI. SHE CONTINUES WITH SHORTNESS OF BREATH AND COUGH TODAY. SHORNTESS OF BREATH IS WORSE ON EXERTION. STAFF REPORTS THAT HER OXYGEN SATURATIONS FALL TO THE 70S ON REGULAR NASAL CANNULA WHEN SHE AMBULATES. SHE IS NOTED TO BE ON THE BIPAP ON MORNING ROUNDS. SHE SWITCHES BETWEEN BIPAP TO HEATED HIGH FLOW. ON EXAMINATION, HEART IS REGULAR IN RATE AND RHYTHM. BILATERAL LUNGS ARE NOTED WITH SCATTERED WHEEZING AND RHONCHI THROUGHOUT. ABDOMEN IS ROUND, SOFT, AND NON-TENDER WITH NORMAL BOWEL SOUNDS NOTED IN ALL QUADRANTS. HER VITALS THIS MORNING ARE: 98.1-73-21-90%BIPAP-125/60. LABS WERE OBTAINED. ABNORMAL LAB VALUES INCLUDE THE FOLLOWING: WBC 13.4, HGB 11.4, HCT 35.4, CARBON DIOXIDE 34.3, BUN 27, CALCIUM 8.1, FERRITIN 295, TOTAL PROTEIN 4.8, ALBUMIN 1.8. AN ABG WAS REPEATED THIS MORNING AND REVEALED: PH 7.360, PC02 73.0, P02 54.0, HC03 41.2, 02 SATURATION 86.0, BASE EXCESS 12.7, FI02 100. SPUTUM CULTURES REVEAL GROWTH OF E.COLI AND MRSA. A CHEST XRAY WAS OBTAINED AND REVEALED: Stable cardiomegaly with extensive diffuse bilateral airspace disease consistent with pneumonia and/or pulmonary edema. There is no significant change. SHE IS CURRENTLY RECEIVING 1/2NS AT 75 ML/HR, INVANZ 1G IV DAILY AND VANCOMYCIN 750 MG IV Q12H, ZINC SULFATE 220MG PO DAILY, ROBITUSSIN DM 10ML PO QID, DUONEBS QID, PULMICORT NEBS BID, AND SOLU-MEDROL 80MG IV Q8H. WE WILL CONTINUE WITH CURRENT PLAN OF CARE TODAY. OTHERWISE, WE PLAN TO FOLLOW UP WITH AM LABS, CHEST XRAY, AND ABG AND CONTINUE TO MONITOR. - Past Medical Family Social History Past Med/Fam/Surg Hx: No changes since H&P Allergies: Allergies codeine Allergy (Verified 02/06/17 22:08) hydromorphone [From Dilaudid] Allergy (Verified 02/06/17 22:08) influenza virus vaccine qs [id number] (36 mos, up) [From Single Use EZ Flu] Allergy (Verified 03/24/17 18:04) meperidine [From Demerol] Allergy (Verified 02/06/17 22:08) prednisone Allergy (Verified 02/06/17 22:08) - Review of Systems ROS: No change since H&P - Vital Signs and I&O's Vital Signs: Temperature 98.2 F Pulse Rate 75 Respiratory Rate 20 Blood Pressure [Left Arm] 120/56 Blood Pressure 125/55 O2 Sat by Pulse Oximetry 99 Intake and Output: Intake & Output 12/25/19 12/26/19 12/27/19 12/28/19 11:59 11:59 11:59 11:59 Intake Total 2440 / 2440 2893 / 2893 4800 / 4800 Output Total 3201 / 3201 3000 / 3000 2300 / 2300 Balance -761 / -761 -107 / -107 2500 / 2500 - Physical Exam Oriented: Normal Eyes: Normal Ear: Normal Nose: Normal Throat: Normal Respiratory: Generalized, Diminished, Wheezes, Rhonchi Cardiovascular: Normal : Normal Auscultation: Bowel Sounds: Normal Palpation: Normal Tenderness: Normal Skin: Normal Musculoskeletal: Normal Psychiatric: Normal Mood Description: Calm Affect: Normal Speech Pattern: Clear, Appropriate - Laboratory and Diagnostics Result Diagrams: 12/27/19 05:15 12/27/19 05:15 Labs: 12/17/19 15:03 Blood Blood Culture - Final 12/17/19 15:00 Blood Blood Culture - Final 12/17/19 16:30 Sputum - Expectorated Sputum Sputum Culture - Final Escherichia Coli Methicillin Resis Staph Aureus 12/17/19 16:30 Sputum - Expectorated Sputum - Final Laboratory WBC 11.6 X10^3/uL (3.6-10.0) H 12/27/19 05:15 RBC 3.77 X10^6/uL (3.5-5.4) 12/27/19 05:15 Hgb 11.0 g/dL (12.0-16.0) L 12/27/19 05:15 Hct 33.9 % (36.0-47.0) L 12/27/19 05:15 MCV 89.8 fL (80.0-100.0) 12/27/19 05:15 MCH 29.1 pg (27.0-34.0) 12/27/19 05:15 MCHC 32.4 g/dL (33.0-35.0) L 12/27/19 05:15 RDW 14.3 % (11.6-16.5) 12/27/19 05:15 Plt Count 262 X10^3/uL (150.0-450.0) 12/27/19 05:15 Plt Count Comment Adequate (ADEQUATE) 12/26/19 04:45 MPV 6.9 fL (7.4-11.0) L 12/27/19 05:15 Neut % (Auto) 80.5 % (42.0-75.0) H 12/27/19 05:15 Lymph % (Auto) 8.8 % (21.0-51.0) L 12/27/19 05:15 [place] % (Auto) 9.5 % (0.0-13.0) 12/27/19 05:15 Eos % (Auto) 1.0 % (0.9-2.9) 12/27/19 05:15 Baso % (Auto) 0.2 % (0.2-1.0) 12/27/19 05:15 Neut # (Auto) 9.3 x10^3/uL (2.2-4.8) H 12/27/19 05:15 Lymph # (Auto) 1.0 X10^3/uL (1.3-2.9) L 12/27/19 05:15 [place] # (Auto) 1.1 x10^3/uL (0.3-0.8) H 12/27/19 05:15 Eos # (Auto) 0.1 x10^3/uL (0.0-0.2) 12/27/19 05:15 Baso # (Auto) 0.0 X10^3/uL (0.0-0.1) 12/27/19 05:15 Absolute Nucleated RBC 0.0 /100WBC 12/27/19 05:15 Total Counted 100 12/26/19 04:45 Neutrophils % (Manual) 90 % (39-76) H 12/26/19 04:45 Band Neutrophils % 1 % (0-10) 12/22/19 04:29 Lymphocytes % (Manual) 9 % (13-43) L 12/26/19 04:45 Monocytes % (Manual) 1 % (4-9) L 12/26/19 04:45 Plt Morphology Comment Normal (NORMAL) 12/26/19 04:45 RBC Morphology Normal (NORMAL) 12/26/19 04:45 Sample Site R rad 12/27/19 06:25 ABG pH 7.410 (7.35-7.45) 12/27/19 06:25 ABG pCO2 66.0 mmHg (35.0-45.0) H* 12/27/19 06:25 ABG pO2 74.0 mmHg (80.0-100.0) L 12/27/19 06:25 ABG HCO3 41.8 mmol/L (22-26) H* 12/27/19 06:25 ABG O2 Saturation 95.0 % (90-100) 12/27/19 06:25 ABG Base Excess 14.3 mmol/L (-2.0-2.0) H 12/27/19 06:25 Triston Test Poss 12/27/19 06:25 A-a Gradient 557.0 mmHg 12/27/19 06:25 FiO2 100.0 12/27/19 06:25 Blood Gas Comments Quinten well mt 12/27/19 06:25 Sodium 137 mmol/L (136-145) 12/27/19 05:15 Corrected Sodium TNP 12/27/19 05:15 Potassium 4.7 mmol/L (3.5-5.1) 12/27/19 05:15 Chloride 100 mmol/L (98-107) 12/27/19 05:15 Carbon Dioxide 36.2 mmol/L (21-32) H 12/27/19 05:15 BUN 19 mg/dL (7-18) H 12/27/19 05:15 Creatinine 0.67 mg/dL (0.55-1.02) 12/27/19 05:15 Est GFR (MDRD) Af Amer > 60 (>60) 12/27/19 05:15 Est GFR (MDRD) Non-Af > 60 (>60) 12/27/19 05:15 Glucose 89 mg/dL (65-99) 12/27/19 05:15 Calcium 7.8 mg/dL (8.5-10.1) L 12/27/19 05:15 Corrected Calcium 9.6 mg/dL (8.5-10.1) 12/27/19 05:15 Ferritin 291 ng/mL (8-252) H 12/27/19 05:15 Total Bilirubin 0.30 mg/dL (0.2-1.0) 12/27/19 05:15 AST 36 Units/L (15-37) 12/27/19 05:15 ALT 29 Units/L (12-78) 12/27/19 05:15 Alkaline Phosphatase 110 Units/L (46-116) 12/27/19 05:15 C-Reactive Protein 1.50 mg/L (0-3.0) 12/27/19 05:15 Total Protein 4.5 g/dL (6.4-8.2) L 12/27/19 05:15 Albumin 1.8 g/dL (3.4-5.0) L 12/27/19 05:15 Globulin 2.7 g/dL (2.5-4.5) 12/27/19 05:15 Albumin/Globulin Ratio 0.7 Ratio (1.1-2.1) L 12/27/19 05:15 Specimen Type Catherized urine 12/18/19 11:45 Urine Color Pale yellow (YELLOW) 12/18/19 11:45 Urine Appearance Clear (CLEAR) 12/18/19 11:45 Urine pH 6.0 (5.0 - 8.0) 12/18/19 11:45 Ur Specific [place] 1.015 (1.000-1.030) 12/18/19 11:45 Urine Protein 3+ (NEGATIVE) 12/18/19 11:45 Urine Glucose (UA) Negative (NEGATIVE) 12/18/19 11:45 Urine Ketones 3+ (NEGATIVE) 12/18/19 11:45 Urine Occult Blood 2+ (NEGATIVE) 12/18/19 11:45 Urine Nitrite Negative (NEGATIVE) 12/18/19 11:45 Urine Bilirubin Negative (NEGATIVE) 12/18/19 11:45 Urine Urobilinogen Normal (NORMAL) 12/18/19 11:45 Ur Leukocyte Esterase Negative (NEGATIVE) 12/18/19 11:45 Urine RBC 0-2 /HPF (0-3) 12/18/19 11:45 Urine WBC None seen /HPF (0-5) 12/18/19 11:45 Ur Squamous Epith Cells Negative /HPF (NEGATIVE) 12/18/19 11:45 Amorphous Sediment Trace /HPF (NEGATIVE) 12/18/19 11:45 Urine Bacteria Negative /HPF (NEGATIVE) 12/18/19 11:45 Granular Casts Rare /LPF (NEGATIVE) 12/18/19 11:45 Urine Mucus Few /HPF (NEGATIVE) 12/18/19 11:45 Ur Culture Indicated? No/not indicated 12/18/19 11:45 Vancomycin Trough 15.0 ug/mL (15-20) 12/26/19 19:20 - Plan (1) COVID-19 Status: Acute Plan: BIPAP, 1/2NS AT 75 ML/HR, INVANZ 1G IV DAILY, VANCOMYCIN 750 MG IV Q12H, ZINC SULFATE 220MG PO DAILY, ROBITUSSIN DM 10ML PO QID, DUONEBS QID, PULMICORT NEBS BID, AND SOLU-MEDROL 80MG IV Q8H. 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 transplanted heart: [place] heart Associated angina: with stable angina Qualified Code(s): I25.118 - Atherosclerotic heart disease of [place] coronary artery with other forms of angina pectoris (7) Dyslipidemia Status: Chronic (8) GERD (gastroesophageal reflux disease) Status: Chronic Qualifiers: Esophagitis presence: esophagitis presence not specified (9) COPD (chronic obstructive pulmonary disease) Status: Chronic Qualifiers: COPD type: chronic bronchitis Chronic bronchitis type: mucopurulent Qualified Code(s): J41.1 - Mucopurulent chronic bronchitis (10) HTN (hypertension) Status: Chronic Qualifiers: Hypertension type: essential hypertension Qualified Code(s): I10 - Essential (primary) hypertension
--- NOTE | 2019-12-27 12:31 | PCM.PROG ---
Progress Note - Progress Note for Day of Date of Exam: 12/26/19 - Subjective Subjective: IS BEING TREATED FOR PNEUMONIA DUE TO COVID-19, PNEUMONIA, AND HYPOXIA. TODAY, SHE IS LYING IN BED WITH EYES CLOSED ON MORNING ROUNDS. SHE AWAKENS AND RESPONDS TO VERBAL STIMULI. SHE CONTINUES WITH SHORTNESS OF BREATH AND COUGH TODAY. SHE HAS BEEN ON BEDREST DUE TO INCREASED EXERTIONAL SOB AND HYPOXIA. SHE HAS A MORAES CATHETER IN PLACE. SHE IS NOTED TO BE ON THE BIPAP ON MORNING ROUNDS. ON EXAMINATION, HEART IS REGULAR IN RATE AND RHYTHM. BILATERAL LUNGS ARE NOTED WITH SCATTERED WHEEZING AND RHONCHI THROUGHOUT. ABDOMEN IS ROUND, SOFT, AND NON-TENDER WITH NORMAL BOWEL SOUNDS NOTED IN ALL QUADRANTS. HER VITALS THIS MORNING ARE: 98.4-88-32-89%HHF-133/60. LABS WERE OBTAINED. ABNORMAL LAB VALUES INCLUDE THE FOLLOWING: WBC 11.1, HGB 11.0, HCT 33.7, CARBON DIOXIDE 35.5, BUN 20, GLUCOSE 131, CALCIUM 8.0, FERRITIN 3.2, CRP 4.10, TOTAL PROTEIN 4.7, ALBUMIN 1.8. AN ABG WAS REPEATED THIS MORNING AND REVEALED: PH 7.400, PC02 66.0, P02 74.0, HC03 40.9, 02 SATURATION 95.0, BASE EXCESS 13.3, FI02 100. SPUTUM CULTURES REVEAL GROWTH OF E.COLI AND MRSA. A CHEST XRAY WAS OBTAINED AND REVEALED: Extensive interstitial lung changes throughout the right and left chest are observed. Focal airspace consolidation of the right and left base is observed. SHE IS CURRENTLY RECEIVING 1/2NS AT 75 ML/HR, INVANZ 1G IV DAILY AND VANCOMYCIN 750G IV Q12H, ZINC SULFATE 220MG PO DAILY, ROBITUSSIN DM 10ML PO QID, DUONEBS QID, PULMICORT NEBS BID, AND SOLU-MEDROL 80MG IV Q8H. WE WILL CONTINUE WITH CURRENT PLAN OF CARE TODAY AND ADD MUCOMYST TO NEB TX. OTHERWISE, WE PLAN TO FOLLOW UP WITH AM LABS, CHEST XRAY, AND ABG AND CONTINUE TO MONITOR. - Past Medical Family Social History Past Med/Fam/Surg Hx: No changes since H&P Allergies: Allergies codeine Allergy (Verified 02/06/17 22:08) hydromorphone [From Dilaudid] Allergy (Verified 02/06/17 22:08) influenza virus vaccine qs 9751-2168 (36 mos, up) [From Single Use EZ Flu] [place] rgy (Verified 03/24/17 18:04) meperidine [From Demerol] Allergy (Verified 02/06/17 22:08) prednisone Allergy (Verified 02/06/17 22:08) - Review of Systems ROS: No change since H&P - Vital Signs and I&O's Vital Signs: Temperature 98.2 F Pulse Rate 75 Respiratory Rate 20 Blood Pressure [Left Arm] 120/56 Blood Pressure 125/55 O2 Sat by Pulse Oximetry 99 Intake and Output: Intake & Output 12/25/19 12/26/19 12/27/19 12/28/19 11:59 11:59 11:59 11:59 Intake Total 2440 / 2440 2893 / 2893 4800 / 4800 Output Total 3201 / 3201 3000 / 3000 2300 / 2300 Balance -761 / -761 -107 / -107 2500 / 2500 - Physical Exam Oriented: Normal Eyes: Normal Ear: Normal Nose: Normal Throat: Normal Respiratory: Generalized, Diminished, Wheezes, Rhonchi Cardiovascular: Normal : Normal Auscultation: Bowel Sounds: Normal Palpation: Normal Tenderness: Normal Skin: Normal Musculoskeletal: Normal Psychiatric: Normal Mood Description: Calm Affect: Normal Speech Pattern: Clear, Appropriate - Laboratory and Diagnostics Result Diagrams: 12/27/19 05:15 12/27/19 05:15 Labs: 12/17/19 15:03 Blood Blood Culture - Final 12/17/19 15:00 Blood Blood Culture - Final 12/17/19 16:30 Sputum - Expectorated Sputum Sputum Culture - Final Escherichia Coli Methicillin Resis Staph Aureus 12/17/19 16:30 Sputum - Expectorated Sputum - Final Laboratory WBC 11.6 X10^3/uL (3.6-10.0) H 12/27/19 05:15 RBC 3.77 X10^6/uL (3.5-5.4) 12/27/19 05:15 Hgb 11.0 g/dL (12.0-16.0) L 12/27/19 05:15 Hct 33.9 % (36.0-47.0) L 12/27/19 05:15 MCV 89.8 fL (80.0-100.0) 12/27/19 05:15 MCH 29.1 pg (27.0-34.0) 12/27/19 05:15 MCHC 32.4 g/dL (33.0-35.0) L 12/27/19 05:15 RDW 14.3 % (11.6-16.5) 12/27/19 05:15 Plt Count 262 X10^3/uL (150.0-450.0) 12/27/19 05:15 Plt Count Comment Adequate (ADEQUATE) 12/26/19 04:45 MPV 6.9 fL (7.4-11.0) L 12/27/19 05:15 Neut % (Auto) 80.5 % (42.0-75.0) H 12/27/19 05:15 Lymph % (Auto) 8.8 % (21.0-51.0) L 12/27/19 05:15 [place] % (Auto) 9.5 % (0.0-13.0) 12/27/19 05:15 Eos % (Auto) 1.0 % (0.9-2.9) 12/27/19 05:15 Baso % (Auto) 0.2 % (0.2-1.0) 12/27/19 05:15 Neut # (Auto) 9.3 x10^3/uL (2.2-4.8) H 12/27/19 05:15 Lymph # (Auto) 1.0 X10^3/uL (1.3-2.9) L 12/27/19 05:15 [place] # (Auto) 1.1 x10^3/uL (0.3-0.8) H 12/27/19 05:15 Eos # (Auto) 0.1 x10^3/uL (0.0-0.2) 12/27/19 05:15 Baso # (Auto) 0.0 X10^3/uL (0.0-0.1) 12/27/19 05:15 Absolute Nucleated RBC 0.0 /100WBC 12/27/19 05:15 Total Counted 100 12/26/19 04:45 Neutrophils % (Manual) 90 % (39-76) H 12/26/19 04:45 Band Neutrophils % 1 % (0-10) 12/22/19 04:29 Lymphocytes % (Manual) 9 % (13-43) L 12/26/19 04:45 Monocytes % (Manual) 1 % (4-9) L 12/26/19 04:45 Plt Morphology Comment Normal (NORMAL) 12/26/19 04:45 RBC Morphology Normal (NORMAL) 12/26/19 04:45 Sample Site R rad 12/27/19 06:25 ABG pH 7.410 (7.35-7.45) 12/27/19 06:25 ABG pCO2 66.0 mmHg (35.0-45.0) H* 12/27/19 06:25 ABG pO2 74.0 mmHg (80.0-100.0) L 12/27/19 06:25 ABG HCO3 41.8 mmol/L (22-26) H* 12/27/19 06:25 ABG O2 Saturation 95.0 % (90-100) 12/27/19 06:25 ABG Base Excess 14.3 mmol/L (-2.0-2.0) H 12/27/19 06:25 Triston Test Poss 12/27/19 06:25 A-a Gradient 557.0 mmHg 12/27/19 06:25 FiO2 100.0 12/27/19 06:25 Blood Gas Comments Quinten well mt 12/27/19 06:25 Sodium 137 mmol/L (136-145) 12/27/19 05:15 Corrected Sodium TNP 12/27/19 05:15 Potassium 4.7 mmol/L (3.5-5.1) 12/27/19 05:15 Chloride 100 mmol/L (98-107) 12/27/19 05:15 Carbon Dioxide 36.2 mmol/L (21-32) H 12/27/19 05:15 BUN 19 mg/dL (7-18) H 12/27/19 05:15 Creatinine 0.67 mg/dL (0.55-1.02) 12/27/19 05:15 Est GFR (MDRD) Af Amer > 60 (>60) 12/27/19 05:15 Est GFR (MDRD) Non-Af > 60 (>60) 12/27/19 05:15 Glucose 89 mg/dL (65-99) 12/27/19 05:15 Calcium 7.8 mg/dL (8.5-10.1) L 12/27/19 05:15 Corrected Calcium 9.6 mg/dL (8.5-10.1) 12/27/19 05:15 Ferritin 291 ng/mL (8-252) H 12/27/19 05:15 Total Bilirubin 0.30 mg/dL (0.2-1.0) 12/27/19 05:15 AST 36 Units/L (15-37) 12/27/19 05:15 ALT 29 Units/L (12-78) 12/27/19 05:15 Alkaline Phosphatase 110 Units/L (46-116) 12/27/19 05:15 C-Reactive Protein 1.50 mg/L (0-3.0) 12/27/19 05:15 Total Protein 4.5 g/dL (6.4-8.2) L 12/27/19 05:15 Albumin 1.8 g/dL (3.4-5.0) L 12/27/19 05:15 Globulin 2.7 g/dL (2.5-4.5) 12/27/19 05:15 Albumin/Globulin Ratio 0.7 Ratio (1.1-2.1) L 12/27/19 05:15 Specimen Type Catherized urine 12/18/19 11:45 Urine Color Pale yellow (YELLOW) 12/18/19 11:45 Urine Appearance Clear (CLEAR) 12/18/19 11:45 Urine pH 6.0 (5.0 - 8.0) 12/18/19 11:45 Ur Specific [place] 1.015 (1.000-1.030) 12/18/19 11:45 Urine Protein 3+ (NEGATIVE) 12/18/19 11:45 Urine Glucose (UA) Negative (NEGATIVE) 12/18/19 11:45 Urine Ketones 3+ (NEGATIVE) 12/18/19 11:45 Urine Occult Blood 2+ (NEGATIVE) 12/18/19 11:45 Urine Nitrite Negative (NEGATIVE) 12/18/19 11:45 Urine Bilirubin Negative (NEGATIVE) 12/18/19 11:45 Urine Urobilinogen Normal (NORMAL) 12/18/19 11:45 Ur Leukocyte Esterase Negative (NEGATIVE) 12/18/19 11:45 Urine RBC 0-2 /HPF (0-3) 12/18/19 11:45 Urine WBC None seen /HPF (0-5) 12/18/19 11:45 Ur Squamous Epith Cells Negative /HPF (NEGATIVE) 12/18/19 11:45 Amorphous Sediment Trace /HPF (NEGATIVE) 12/18/19 11:45 Urine Bacteria Negative /HPF (NEGATIVE) 12/18/19 11:45 Granular Casts Rare /LPF (NEGATIVE) 12/18/19 11:45 Urine Mucus Few /HPF (NEGATIVE) 12/18/19 11:45 Ur Culture Indicated? No/not indicated 12/18/19 11:45 Vancomycin Trough 15.0 ug/mL (-) 12/26/19 19:20 - Plan (1) COVID-19 Status: Acute Plan: BIPAP, 1/2NS AT 75 ML/HR, INVANZ 1G IV DAILY, VANCOMYCIN 750 MG IV Q12H, ZINC SULFATE 220MG PO DAILY, ROBITUSSIN DM 10ML PO QID, DUONEBS QID, PULMICORT NEBS BID, MUCOMYST IN NEB [place], AND SOLU-MEDROL 80MG IV Q8H. (2) Pneumonia Status: Acute Qualifiers: Pneumonia type: due to unspecified organism Laterality: unspecified laterality Lung location: unspecified part of lung Qualified Code(s): J18.9 - Pneumonia, unspecified organism (3) Hypoxia Status: Acute (4) Anemia Status: Chronic Qualifiers: Anemia type: iron deficiency Iron deficiency anemia type: chronic blood lo ss Qualified Code(s): D50.0 - Iron deficiency anemia secondary to blood loss (chronic) (5) CHF (congestive heart failure) Status: Chronic Qualifiers: Qualified Code(s): I50.9 - Heart failure, unspecified (6) Coronary artery disease Status: Chronic Qualifiers: Coronary Disease-Associated Artery/Lesion type: [place] artery [place] vs. transplanted heart: [place] heart Associated angina: with stable angina Qualified Code(s): I25.118 - Atherosclerotic heart disease of [place] coronary artery with other forms of angina pectoris (7) Dyslipidemia Status: Chronic (8) GERD (gastroesophageal reflux disease) Status: Chronic Qualifiers: Esophagitis presence: esophagitis presence not specified (9) COPD (chronic obstructive pulmonary disease) Status: Chronic Qualifiers: COPD type: chronic bronchitis Chronic bronchitis type: mucopurulent Qualified Code(s): J41.1 - Mucopurulent chronic bronchitis (10) HTN (hypertension) Status: Chronic Qualifiers: Hypertension type: essential hypertension Qualified Code(s): I10 - Essential (primary) hypertension
[2019-12-27] MEDS: ALBUMIN HUMAN 25%- 100 ML 100 ML IV SCH (13:14)
[2019-12-27] MEDS: CRESTOR TAB 10 MG PO SCH (20:19)
[2019-12-27] MEDS: KLONOPIN TAB 1 MG PO SCH (20:19)
[2019-12-27] MEDS: MUCINEX EXPECTORANT PO SCH (20:20)
[2019-12-27] MEDS: XARELTO PO SCH (20:21)
[2019-12-28] MEDS: MORPHINE SULFATE INJ 2 MG INJ IVP SCH ×6 (01:47→21:36)
[2019-12-28] MEDS: NS 1/2 1000 ML IV 1,000 ML IV SCH ×3 (02:14→17:00)
[2019-12-28] MEDS ORDERED: SOLU-Medrol 40 MG VIAL ONE (04:59)
[2019-12-28] MEDS: SOLU-Medrol 40 MG VIAL IVP SCH ×3 (05:03→21:37)
[2019-12-28] MEDS: NEURONTIN CAP 300 MG PO SCH ×3 (05:04→21:36)
[2019-12-28] MEDS: NORCO 7.5/325 MG TAB PO SCH ×3 (05:05→22:25)
[2019-12-28 06:02] LABS: ABG BASE EXCESS 15.3 mmol/L (-2.0-2.0)
[2019-12-28 06:04] LABS: ABG ALLEN TEST POS; ABG HCO3 43.1 mmol/L (22-26)
[2019-12-28 06:13] LABS: ALANINE AMINOTRANSFERASE 32 Units/L (12-78); ALBUMIN 2.2 g/dL (3.4-5.0); ALKALINE PHOSPHATASE 90 Units/L (46-116); ASPARTATE AMINO TRANSFERASE 31 Units/L (15-37); BLOOD UREA NITROGEN 20 mg/dL (7-18); CALCIUM 7.8 mg/dL (8.5-10.1); CARBON DIOXIDE 35.3 mmol/L (21-32); CHLORIDE 101 mmol/L (98-107); COR CA(FOR HYPOALB) 9.2 mg/dL (8.5-10.1); COR NA(FOR HYPERGLY) 137 mmol/L (136-145); SODIUM 137 mmol/L (136-145); TOTAL PROTEIN 4.8 g/dL (6.4-8.2); eGFR NON BLACK RACES > 60 (>60)
[2019-12-28 06:29] LABS: BASOPHILS % (AUTO) 0.2 % (0.2-1.0); EOSINOPHILS % (AUTO) 0.1 % (0.9-2.9); HEMOGLOBIN 10.5 g/dL (12.0-16.0); LYMPHOCYTES # (AUTO) 0.5 X10^3/uL (1.3-2.9); LYMPHOCYTES % (AUTO) 4.8 % (21.0-51.0); MEAN CORPUSCULAR HEMOGLOBIN 29.6 pg (27.0-34.0); MEAN CORPUSCULAR HGB CONC 32.8 g/dL (33.0-35.0); MEAN CORPUSCULAR VOLUME 90.2 fL (80.0-100.0); MONOCYTES # (AUTO) 0.8 x10^3/uL (0.3-0.8); MONOCYTES % (AUTO) 8.3 % (0.0-13.0); NEUTROPHILS # (AUTO) 8.8 x10^3/uL (2.2-4.8); NEUTROPHILS % (AUTO) 86.6 % (42.0-75.0); PLATELET COUNT 225 X10^3/uL (150.0-450.0); RED BLOOD COUNT 3.54 X10^6/uL (3.5-5.4); RED CELL DISTRIBUTION WIDTH 14.3 % (11.6-16.5); WHITE BLOOD COUNT 10.1 X10^3/uL (3.6-10.0)
--- NOTE | 2019-12-28 08:14 | RAD ---
HISTORYSOBSTUDYCHEST, 1 VIEWCOMPARISON[One day prior]TECHNIQUE[AP view of the chest.]FINDINGS[Cardiac silhouette is mildly enlarged. No significant change in diffuse bilateral airspace disease. No pneumothorax.]IMPRESSION[No significant change.]Electronically signed by: Orlando Garcia (Dec 28, 2019 06:27:39)
[2019-12-28] MEDS: PULMICORT NEB TX 0.5 MG NEB SCH ×2 (09:10→21:10)
[2019-12-28] MEDS: MUCOMYST (RESPIRATORY USE ONLY) NEB SCH ×2 (09:10→21:10)
[2019-12-28] MEDS: DUONEB 0.5 MG/3 MG (3 mL) NEB SCH ×4 (09:10→21:10)
[2019-12-28] MEDS: ALBUMIN HUMAN 25%- 100 ML 100 ML IV SCH (09:31)
[2019-12-28] MEDS: INVANZ INJ 1 GM VIAL 1 GM in NS 100 ML IV + SPIKE MINIBAG* 100 ML IV SCH (09:32)
[2019-12-28] MEDS: ZINC SULFATE PO SCH (09:33)
[2019-12-28] MEDS: VSL#3 PO SCH (09:33)
[2019-12-28] MEDS: VITAMIN C PO SCH (09:34)
[2019-12-28] MEDS: VITAMIN D3 125 mcg (5,000 UNITS) PO SCH (09:34)
[2019-12-28] MEDS: TAB-A-VITE PO SCH (09:35)
[2019-12-28] MEDS: POTASSIUM CHLORIDE LIQ 20 MEQ UDC PO SCH (09:36)
[2019-12-28] MEDS: SINGULAIR TAB 10 MG PO SCH (09:37)
[2019-12-28] MEDS: PLAVIX PO SCH (09:37)
[2019-12-28] MEDS: ROBITUSSIN DM PO SCH ×4 (09:38→21:34)
[2019-12-28] MEDS: PROzac PO SCH (09:38)
[2019-12-28] MEDS: COLACE CAP 100 MG PO SCH ×2 (09:39→21:32)
[2019-12-28] MEDS: CITRACAL + VITAMIN D PO SCH ×2 (09:39→21:32)
[2019-12-28] MEDS: CELEBREX PO SCH (09:39)
[2019-12-28] MEDS: FERROUS GLUCONATE PO SCH (09:40)
[2019-12-28] MEDS: COREG TAB 12.5 MG PO SCH ×2 (09:40→21:33)
[2019-12-28] MEDS: NexIUM PO SCH (09:40)
[2019-12-28] MEDS: FOLIC ACID TAB 1 MG PO SCH (09:40)
[2019-12-28] MEDS: CLARITIN PO SCH (09:42)
[2019-12-28 09:49] LABS: CREATININE 0.66 mg/dL (0.55-1.02); VANCOMYCIN,TROUGH 13.4 ug/mL (15-20)
[2019-12-28] MEDS: VANCOMYCIN HCL 1 G in D5W 250 ML IV 250 ML IV SCH ×2 (11:26→21:34)
[2019-12-28] MEDS ORDERED: NS 1/2 1000 ML IV 1,000 ML IV ONE (12:28)
[2019-12-28] MEDS: CRESTOR TAB 10 MG PO SCH (21:33)
[2019-12-28] MEDS: KLONOPIN TAB 1 MG PO SCH (21:33)
[2019-12-28] MEDS: MUCINEX EXPECTORANT PO SCH (21:33)
[2019-12-28] MEDS: XARELTO PO SCH (21:34)
[2019-12-29] MEDS: MORPHINE SULFATE INJ 2 MG INJ IVP SCH ×2 (02:20→05:59)
[2019-12-29] MEDS ORDERED: NS 1/2 1000 ML IV 1,000 ML IV ONE ×2 (04:46→20:27)
[2019-12-29 05:25] LABS: ABG BASE EXCESS 15.3 mmol/L (-2.0-2.0); ABG HCO3 43.1 mmol/L (22-26)
[2019-12-29 05:26] LABS: ABG ALLEN TEST POS
[2019-12-29] MEDS: NORCO 7.5/325 MG TAB PO SCH ×3 (06:00→21:37)
[2019-12-29] MEDS: NEURONTIN CAP 300 MG PO SCH ×3 (06:00→21:40)
[2019-12-29] MEDS: NS 1/2 1000 ML IV 1,000 ML IV SCH ×2 (06:01→21:35)
[2019-12-29] MEDS: SOLU-Medrol 40 MG VIAL IVP SCH ×3 (06:01→21:40)
[2019-12-29 06:29] LABS: BASOPHILS % (AUTO) 0.1 % (0.2-1.0); HEMOGLOBIN 10.4 g/dL (12.0-16.0); LYMPHOCYTES # (AUTO) 0.4 X10^3/uL (1.3-2.9); LYMPHOCYTES % (AUTO) 3.1 % (21.0-51.0); MEAN CORPUSCULAR HEMOGLOBIN 29.6 pg (27.0-34.0); MEAN CORPUSCULAR HGB CONC 32.5 g/dL (33.0-35.0); MEAN CORPUSCULAR VOLUME 91.1 fL (80.0-100.0); MEAN PLATELET VOLUME 7.5 fL (7.4-11.0); MONOCYTES # (AUTO) 0.4 x10^3/uL (0.3-0.8); MONOCYTES % (AUTO) 3.1 % (0.0-13.0); NEUTROPHILS # (AUTO) 12.3 x10^3/uL (2.2-4.8); NEUTROPHILS % (AUTO) 93.7 % (42.0-75.0); PLATELET COUNT 217 X10^3/uL (150.0-450.0); RED BLOOD COUNT 3.51 X10^6/uL (3.5-5.4); RED CELL DISTRIBUTION WIDTH 14.4 % (11.6-16.5); WHITE BLOOD COUNT 13.2 X10^3/uL (3.6-10.0)
[2019-12-29 06:41] LABS: ALANINE AMINOTRANSFERASE 23 Units/L (12-78); ALBUMIN 2.4 g/dL (3.4-5.0); ALKALINE PHOSPHATASE 82 Units/L (46-116); ASPARTATE AMINO TRANSFERASE 24 Units/L (15-37); BLOOD UREA NITROGEN 21 mg/dL (7-18); CALCIUM 8.1 mg/dL (8.5-10.1); CARBON DIOXIDE 36.6 mmol/L (21-32); CHLORIDE 101 mmol/L (98-107); COR CA(FOR HYPOALB) 9.4 mg/dL (8.5-10.1); COR NA(FOR HYPERGLY) 139 mmol/L (136-145); CREATININE 0.56 mg/dL (0.55-1.02); SODIUM 138 mmol/L (136-145); TOTAL PROTEIN 4.8 g/dL (6.4-8.2); eGFR NON BLACK RACES > 60 (>60)
--- NOTE | 2019-12-29 07:14 | RAD ---
HISTORYSOBSTUDYCHEST, 1 VIEWCOMPARISON[12/28/2019]TECHNIQUE[AP view of the chest.]FINDINGS[Cardiac silhouette is stably enlarged. Patient is rotated. Stable bilateral diffuse airspace disease. No pneumothorax.]IMPRESSION[No significant change.]Electronically signed by: Orlando Garcia (Dec 29, 2019 07:13:31)
[2019-12-29 08:03] LABS: PLATELET MORPHOLOGY COMMENT NORMAL (NORMAL)
[2019-12-29] MEDS: MUCOMYST (RESPIRATORY USE ONLY) NEB SCH ×2 (08:25→21:15)
[2019-12-29] MEDS: PULMICORT NEB TX 0.5 MG NEB SCH ×2 (08:25→21:15)
[2019-12-29] MEDS: DUONEB 0.5 MG/3 MG (3 mL) NEB SCH ×4 (08:25→21:15)
--- NOTE | 2019-12-29 08:45 | PCM.PROG ---
Progress Note - Progress Note for Day of Date of Exam: 12/27/19 - Subjective Subjective: IS BEING TREATED FOR PNEUMONIA DUE TO COVID-19, PNEUMONIA, AND HYPOXIA. TODAY, SHE IS LYING IN BED WITH EYES CLOSED ON MORNING ROUNDS. SHE AWAKENS AND RESPONDS TO VERBAL STIMULI. SHE CONTINUES WITH SHORTNESS OF BREATH AND COUGH TODAY. SHE HAS BEEN ON BEDREST DUE TO INCREASED EXERTIONAL SOB AND HYPOXIA. SHE HAS A MORAES CATHETER IN PLACE. SHE IS NOTED TO BE ON THE BIPAP ON MORNING ROUNDS. ON EXAMINATION, HEART IS REGULAR IN RATE AND RHYTHM. BILATERAL LUNGS ARE NOTED WITH SCATTERED WHEEZING AND RHONCHI THROUGHOUT. ABDOMEN IS ROUND, SOFT, AND NON-TENDER WITH NORMAL BOWEL SOUNDS NOTED IN ALL QUADRANTS. HER VITALS THIS MORNING ARE: 98.2-62-16-92%-129/57. LABS WERE OBTAINED. ABNORMAL LAB VALUES INCLUDE THE FOLLOWING: WBC 11.6, HGB 11.0, HCT 33.9, CARBON DIOXIDE 36.2, BUN 19, CALCIUM 7.8, FERRITIN 291, TOTAL PROTEIN 4.5, ALBUMIN 1.8. AN ABG WAS REPEATED THIS MORNING AND REVEALED: PH 7.410, PC02 66.0, P02 74.0, HC03 41.8, 02 SATURATION 95.0, BASE EXCESS 14.3, FI02 100.0. SPUTUM CULTURES REVEAL GROWTH OF E.COLI AND MRSA. A CHEST XRAY WAS OBTAINED AND REVEALED: Improved aeration in the upper lungs compared to prior study. SHE IS CURRENTLY RECEIVING 1/2NS AT 75 ML/HR, INVANZ 1G IV DAILY, VANCOMYCIN 750G IV Q12H, ZINC SULFATE 220MG PO DAILY, ROBITUSSIN DM 10ML PO QID, DUONEBS QID, PULMICORT NEBS BID, MUCOMYST IN [facility] [place], AND SOLU-MEDROL 80MG IV Q8H, MORPHINE 2MG IV Q4H, AND HER HOME MEDICATIONS WERE RESUMED. WE WILL CONTINUE WITH CURRENT PLAN OF CARE TODAY AND ADD ALBUMIN 25% IV DAILY. OTHERWISE, WE PLAN TO FOLLOW UP WITH AM LABS, CHEST XRAY, AND ABG AND CONTINUE TO MONITOR. - Past Medical Family Social History Past Med/Fam/Surg Hx: No changes since H&P Allergies: Allergies codeine Allergy (Verified 02/06/17 22:08) hydromorphone [From Dilaudid] Allergy (Verified 02/06/17 22:08) influenza virus vaccine qs 7682-3801 (36 mos, up) [From Single Use EZ Flu] Allergy (Verified 03/24/17 18:04) meperidine [From Demerol] Allergy (Verified 02/06/17 22:08) prednisone Allergy (Verified 02/06/17 22:08) - Review of Systems ROS: No change since H&P - Vital Signs and I&O's Vital Signs: Temperature 98.8 F Pulse Rate 62 Respiratory Rate 23 Blood Pressure [Left Arm] 120/56 Blood Pressure 105/52 O2 Sat by Pulse Oximetry 93 Intake and Output: Intake & Output 12/26/19 12/27/19 12/28/19 12/29/19 11:59 11:59 11:59 11:59 Intake Total 2893 / 2893 4800 / 4800 3574 / 3574 3522 / 3522 Output Total 3000 / 3000 2300 / 2300 1900 / 1900 1900 / 1900 Balance -107 / -107 2500 / 2500 1674 / 1674 1622 / 1622 - Physical Exam Oriented: Normal Eyes: Normal Ear: Normal Nose: Normal Throat: Normal Respiratory: Generalized, Diminished, Wheezes, Rhonchi Cardiovascular: Normal : Normal Auscultation: Bowel Sounds: Normal Tenderness: Normal Skin: Normal Musculoskeletal: Normal Psychiatric: Normal Mood Description: Calm Affect: Normal Speech Pattern: Clear, Appropriate - Laboratory and Diagnostics Result Diagrams: 12/29/19 04:40 12/29/19 04:40 Labs: 12/17/19 15:03 Blood Blood Culture - Final 12/17/19 15:00 Blood Blood Culture - Final 12/17/19 16:30 Sputum - Expectorated Sputum Sputum Culture - Final Escherichia Coli Methicillin Resis Staph Aureus 12/17/19 16:30 Sputum - Expectorated Sputum - Final Laboratory WBC 13.2 X10^3/uL (3.6-10.0) H 12/29/19 04:40 RBC 3.51 X10^6/uL (3.5-5.4) 12/29/19 04:40 Hgb 10.4 g/dL (12.0-16.0) L 12/29/19 04:40 Hct 32.0 % (36.0-47.0) L 12/29/19 04:40 MCV 91.1 fL (80.0-100.0) 12/29/19 04:40 MCH 29.6 pg (27.0-34.0) 12/29/19 04:40 MCHC 32.5 g/dL (33.0-35.0) L 12/29/19 04:40 RDW 14.4 % (11.6-16.5) 12/29/19 04:40 Plt Count 217 X10^3/uL (150.0-450.0) 12/29/19 04:40 Plt Count Comment Adequate (ADEQUATE) 12/29/19 04:40 MPV 7.5 fL (7.4-11.0) 12/29/19 04:40 Neut % (Auto) 93.7 % (42.0-75.0) H 12/29/19 04:40 Lymph % (Auto) 3.1 % (21.0-51.0) L 12/29/19 04:40 [place] % (Auto) 3.1 % (0.0-13.0) 12/29/19 04:40 Eos % (Auto) 0.0 % (0.9-2.9) L 12/29/19 04:40 Baso % (Auto) 0.1 % (0.2-1.0) L 12/29/19 04:40 Neut # (Auto) 12.3 x10^3/uL (2.2-4.8) H 12/29/19 04:40 Lymph # (Auto) 0.4 X10^3/uL (1.3-2.9) L 12/29/19 04:40 [place] # (Auto) 0.4 x10^3/uL (0.3-0.8) 12/29/19 04:40 Eos # (Auto) 0.0 x10^3/uL (0.0-0.2) 12/29/19 04:40 Baso # (Auto) 0.0 X10^3/uL (0.0-0.1) 12/29/19 04:40 Absolute Nucleated RBC 0.0 /100WBC 12/29/19 04:40 Total Counted 100 12/29/19 04:40 Neutrophils % (Manual) 93 % (39-76) H 12/29/19 04:40 Band Neutrophils % 1 % (0-10) 12/22/19 04:29 Lymphocytes % (Manual) 5 % (13-43) L 12/29/19 04:40 Monocytes % (Manual) 2 % (4-9) L 12/29/19 04:40 Plt Morphology Comment Normal (NORMAL) 12/29/19 04:40 RBC Morphology Normal (NORMAL) 12/29/19 04:40 Sample Site Rr 12/29/19 05:20 ABG pH 7.410 (7.35-7.45) 12/29/19 05:20 ABG pCO2 68.0 mmHg (35.0-45.0) H* 12/29/19 05:20 ABG pO2 72.0 mmHg (80.0-100.0) L 12/29/19 05:20 ABG HCO3 43.1 mmol/L (22-26) H* 12/29/19 05:20 ABG O2 Saturation 94.0 % (90-100) 12/29/19 05:20 ABG Base Excess 15.3 mmol/L (-2.0-2.0) H 12/29/19 05:20 Triston Test Pos 12/29/19 05:20 A-a Gradient 413.0 mmHg 12/29/19 05:20 FiO2 80.0 12/29/19 05:20 Blood Gas Comments [place] well 12/29/19 05:20 Sodium 138 mmol/L (136-145) 12/29/19 04:40 Corrected Sodium 139 mmol/L (136-145) 12/29/19 04:40 Potassium 5.2 mmol/L (3.5-5.1) H 12/29/19 04:40 Chloride 101 mmol/L (98-107) 12/29/19 04:40 Carbon Dioxide 36.6 mmol/L (21-32) H 12/29/19 04:40 BUN 21 mg/dL (7-18) H 12/29/19 04:40 Creatinine 0.56 mg/dL (0.55-1.02) 12/29/19 04:40 Est GFR (MDRD) Af Amer > 60 (>60) 12/29/19 04:40 Est GFR (MDRD) Non-Af > 60 (>60) 12/29/19 04:40 Glucose 134 mg/dL (65-99) H 12/29/19 04:40 Calcium 8.1 mg/dL (8.5-10.1) L 12/29/19 04:40 Corrected Calcium 9.4 mg/dL (8.5-10.1) 12/29/19 04:40 Ferritin 236 ng/mL (8-252) 12/29/19 04:40 Total Bilirubin 0.40 mg/dL (0.2-1.0) 12/29/19 04:40 AST 24 Units/L (15-37) 12/29/19 04:40 ALT 23 Units/L (12-78) 12/29/19 04:40 Alkaline Phosphatase 82 Units/L (46-116) 12/29/19 04:40 C-Reactive Protein 1.40 mg/L (0-3.0) 12/29/19 04:40 Total Protein 4.8 g/dL (6.4-8.2) L 12/29/19 04:40 Albumin 2.4 g/dL (3.4-5.0) L 12/29/19 04:40 Globulin 2.4 g/dL (2.5-4.5) L 12/29/19 04:40 Albumin/Globulin Ratio 1.0 Ratio (1.1-2.1) L 12/29/19 04:40 Specimen Type Catherized urine 12/18/19 11:45 Urine Color Pale yellow (YELLOW) 12/18/19 11:45 Urine Appearance Clear (CLEAR) 12/18/19 11:45 Urine pH 6.0 (5.0 - 8.0) 12/18/19 11:45 Ur Specific [place] 1.015 (1.000-1.030) 12/18/19 11:45 Urine Protein 3+ (NEGATIVE) 12/18/19 11:45 Urine Glucose (UA) Negative (NEGATIVE) 12/18/19 11:45 Urine Ketones 3+ (NEGATIVE) 12/18/19 11:45 Urine Occult Blood 2+ (NEGATIVE) 12/18/19 11:45 Urine Nitrite Negative (NEGATIVE) 12/18/19 11:45 Urine Bilirubin Negative (NEGATIVE) 12/18/19 11:45 Urine Urobilinogen Normal (NORMAL) 12/18/19 11:45 Ur Leukocyte Esterase Negative (NEGATIVE) 12/18/19 11:45 Urine RBC 0-2 /HPF (0-3) 12/18/19 11:45 Urine WBC None seen /HPF (0-5) 12/18/19 11:45 Ur Squamous Epith Cells Negative /HPF (NEGATIVE) 12/18/19 11:45 Amorphous Sediment Trace /HPF (NEGATIVE) 12/18/19 11:45 Urine Bacteria Negative /HPF (NEGATIVE) 12/18/19 11:45 Granular Casts Rare /LPF (NEGATIVE) 12/18/19 11:45 Urine Mucus Few /HPF (NEGATIVE) 12/18/19 11:45 Ur Culture Indicated? No/not indicated 12/18/19 11:45 Vancomycin Trough 13.4 ug/mL (15-20) L 12/28/19 08:50 - Plan (1) COVID-19 Status: Acute Plan: BIPAP, 1/2NS AT 75 ML/HR, INVANZ 1G IV DAILY, VANCOMYCIN 750 MG IV Q12H, ZINC SULFATE 220MG PO DAILY, ROBITUSSIN DM 10ML PO QID, DUONEBS QID, PULMICORT NEBS BID, MUCOMYST IN [place], AND SOLU-MEDROL 80MG IV Q8H. 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 transplanted heart: [place] heart Associated angina: with stable angina Qualified Code(s): I25.118 - Atherosclerotic heart disease of [place] coronary artery with other forms of angina pectoris (7) Dyslipidemia Status: Chronic (8) GERD (gastroesophageal reflux disease) Status: Chronic Qualifiers: Esophagitis presence: esophagitis presence not specified (9) COPD (chronic obstructive pulmonary disease) Status: Chronic Qualifiers: COPD type: chronic bronchitis Chronic bronchitis type: mucopurulent Qualified Code(s): J41.1 - Mucopurulent chronic bronchitis (10) HTN (hypertension) Status: Chronic Qualifiers: Hypertension type: essential hypertension Qualified Code(s): I10 - Essential (primary) hypertension
[2019-12-29] MEDS ORDERED: MORPHINE SULFATE INJ 2 MG INJ IVP SCH (08:57)
[2019-12-29] MEDS: FERROUS GLUCONATE PO SCH (09:45)
[2019-12-29] MEDS: INVANZ INJ 1 GM VIAL 1 GM in NS 100 ML IV + SPIKE MINIBAG* 100 ML IV SCH (09:45)
[2019-12-29] MEDS: PLAVIX PO SCH (09:45)
[2019-12-29] MEDS: CLARITIN PO SCH (09:45)
[2019-12-29] MEDS: NexIUM PO SCH (09:45)
[2019-12-29] MEDS: ROBITUSSIN DM PO SCH ×4 (09:45→21:40)
[2019-12-29] MEDS: POTASSIUM CHLORIDE LIQ 20 MEQ UDC PO SCH (09:45)
[2019-12-29] MEDS: SINGULAIR TAB 10 MG PO SCH (09:45)
[2019-12-29] MEDS: TAB-A-VITE PO SCH (09:45)
[2019-12-29] MEDS: PROzac PO SCH (09:45)
[2019-12-29] MEDS: CELEBREX PO SCH (09:45)
[2019-12-29] MEDS: FOLIC ACID TAB 1 MG PO SCH (09:45)
[2019-12-29] MEDS: ZINC SULFATE PO SCH (09:46)
[2019-12-29] MEDS: LASIX PO SCH (09:46)
[2019-12-29] MEDS: VITAMIN D3 125 mcg (5,000 UNITS) PO SCH (09:46)
[2019-12-29] MEDS: VSL#3 PO SCH (09:46)
[2019-12-29] MEDS: VITAMIN C PO SCH (09:46)
[2019-12-29] MEDS: ALBUMIN HUMAN 25%- 100 ML 100 ML IV SCH (10:54)
[2019-12-29] MEDS ORDERED: MORPHINE SULFATE INJ 2 MG INJ IVP PRN (10:57)
[2019-12-29] MEDS: CITRACAL + VITAMIN D PO SCH ×2 (10:58→21:40)
[2019-12-29] MEDS: COLACE CAP 100 MG PO SCH ×2 (10:58→21:35)
[2019-12-29] MEDS: COREG TAB 12.5 MG PO SCH ×2 (10:59→21:35)
--- NOTE | 2019-12-29 11:15 | PCM.PROG ---
Progress Note - Progress Note for Day of Date of Exam: 12/28/19 - Subjective Subjective: IS BEING TREATED FOR PNEUMONIA DUE TO COVID-19, PNEUMONIA, AND HYPOXIA. TODAY, SHE IS LYING IN BED WITH EYES CLOSED ON MORNING ROUNDS. SHE AWAKENS AND RESPONDS TO VERBAL STIMULI. SHE CONTINUES WITH SHORTNESS OF BREATH TODAY, BUT REPORTS SLIGHT IMPROVEMENT IN SYMPTOMS. SHE HAS BEEN ON BEDREST DUE TO INCREASED EXERTIONAL SOB AND HYPOXIA. SHE HAS A MORAES CATHETER IN PLACE. SHE IS NOTED TO BE ON THE BIPAP ON MORNING ROUNDS. ON EXAMINATION, HEART IS REGULAR IN RATE AND RHYTHM. BILATERAL LUNGS ARE NOTED WITH DIMINISHED LUNG SOUNDS THROUGHOUT. ABDOMEN IS ROUND, SOFT, AND NON-TENDER WITH NORMAL BOWEL SOUNDS NOTED IN ALL QUADRANTS. HER VITALS THIS MORNING ARE: 97.3-69-20-96%BIPAP-130/59. LABS WERE OBTAINED. ABNORMAL LAB VALUES INCLUDE THE FOLLOWING: WBC 10.1, HGB 10.5, HCT 32.0, CARBON DIOXIDE 35.3, BUN 20, GLUCOSE 111, CALCIUM 7.8, FERRITIN 254, TOTAL PROTEIN 4.8, ALBUMIN 2.2. AN ABG WAS REPEATED THIS MORNING AND REVEALED: PH 7.410, PC02 68.0, P02 92.0, HC03 43.1, 02 SATURATION 97, BASE EXCESS 15.3, FI02 100.0. SPUTUM CULTURES REVEAL GROWTH OF E.COLI AND MRSA. A CHEST XRAY WAS OBTAINED AND REVEALED: Cardiac silhouette is mildly enlarged. No significant change in diffuse bilateral airspace disease. No pneumothorax. SHE IS CURRENTLY RECEIVING 1/2NS AT 75 ML/HR, ALBUMIN 25% IV DAILY, INVANZ 1G IV DAILY, VANCOMYCIN 750G IV Q12H, ZINC SULFATE 220MG PO DAILY, ROBITUSSIN DM 10ML PO QID, DUONEBS QID, PULMICORT NEBS BID, MUCOMYST IN [place], AND SOLU-MEDROL 80MG IV Q8H, MORPHINE 2MG IV Q4H, AND HER HOME MEDICATIONS WERE RESUMED. WE WILL CONTINUE WITH CURRENT PLAN OF CARE TODAY. WE WILL ATTEMPT TO WEAN HER OXYGEN DOWN. OTHERWISE, WE PLAN TO FOLLOW UP WITH AM LABS, CHEST XRAY, AND ABG AND CONTINUE TO MONITOR. - Past Medical Family Social History Past Med/Fam/Surg Hx: No changes since H&P Allergies: Allergies codeine Allergy (Verified 02/06/17 22:08) hydromorphone [From Dilaudid] Allergy (Verified 02/06/17 22:08) influenza virus vaccine qs 9425-1833 (36 mos, up) [From Single Use EZ Flu] Allergy (Verified 03/24/17 18:04) meperidine [From Demerol] Allergy (Verified 02/06/17 22:08) prednisone Allergy (Verified 02/06/17 22:08) - Review of Systems ROS: No change since H&P - Vital Signs and I&O's Vital Signs: Temperature 98.8 F Pulse Rate 70 Respiratory Rate 23 Blood Pressure [Left Arm] 120/56 Blood Pressure 145/71 O2 Sat by Pulse Oximetry 84 Intake and Output: Intake & Output 12/26/19 12/27/19 12/28/19 12/29/19 11:59 11:59 11:59 11:59 Intake Total 2893 / 2893 4800 / 4800 3574 / 3574 3522 / 3522 Output Total 3000 / 3000 2300 / 2300 1900 / 1900 1900 / 1900 Balance -107 / -107 2500 / 2500 1674 / 1674 1622 / 1622 - Physical Exam Oriented: Normal Eyes: Normal Ear: Normal Nose: Normal Throat: Normal Respiratory: Generalized, Diminished Cardiovascular: Normal : Normal Auscultation: Bowel Sounds: Normal Tenderness: Normal Skin: Normal Musculoskeletal: Normal Psychiatric: Normal Mood Description: Calm Affect: Normal Speech Pattern: Clear, Appropriate - Laboratory and Diagnostics Result Diagrams: 12/29/19 04:40 12/29/19 04:40 Labs: 12/17/19 15:03 Blood Blood Culture - Final 12/17/19 15:00 Blood Blood Culture - Final 12/17/19 16:30 Sputum - Expectorated Sputum Sputum Culture - Final Escherichia Coli Methicillin Resis Staph Aureus 12/17/19 16:30 Sputum - Expectorated Sputum - Final Laboratory WBC 13.2 X10^3/uL (3.6-10.0) H 12/29/19 04:40 RBC 3.51 X10^6/uL (3.5-5.4) 12/29/19 04:40 Hgb 10.4 g/dL (12.0-16.0) L 12/29/19 04:40 Hct 32.0 % (36.0-47.0) L 12/29/19 04:40 MCV 91.1 fL (80.0-100.0) 12/29/19 04:40 MCH 29.6 pg (27.0-34.0) 12/29/19 04:40 MCHC 32.5 g/dL (33.0-35.0) L 12/29/19 04:40 RDW 14.4 % (11.6-16.5) 12/29/19 04:40 Plt Count 217 X10^3/uL (150.0-450.0) 12/29/19 04:40 Plt Count Comment Adequate (ADEQUATE) 12/29/19 04:40 MPV 7.5 fL (7.4-11.0) 12/29/19 04:40 Neut % (Auto) 93.7 % (42.0-75.0) H 12/29/19 04:40 Lymph % (Auto) 3.1 % (21.0-51.0) L 12/29/19 04:40 [place] % (Auto) 3.1 % (0.0-13.0) 12/29/19 04:40 Eos % (Auto) 0.0 % (0.9-2.9) L 12/29/19 04:40 Baso % (Auto) 0.1 % (0.2-1.0) L 12/29/19 04:40 Neut # (Auto) 12.3 x10^3/uL (2.2-4.8) H 12/29/19 04:40 Lymph # (Auto) 0.4 X10^3/uL (1.3-2.9) L 12/29/19 04:40 [place] # (Auto) 0.4 x10^3/uL (0.3-0.8) 12/29/19 04:40 Eos # (Auto) 0.0 x10^3/uL (0.0-0.2) 12/29/19 04:40 Baso # (Auto) 0.0 X10^3/uL (0.0-0.1) 12/29/19 04:40 Absolute Nucleated RBC 0.0 /100WBC 12/29/19 04:40 Total Counted 100 12/29/19 04:40 Neutrophils % (Manual) 93 % (39-76) H 12/29/19 04:40 Band Neutrophils % 1 % (0-10) 12/22/19 04:29 Lymphocytes % (Manual) 5 % (13-43) L 12/29/19 04:40 Monocytes % (Manual) 2 % (4-9) L 12/29/19 04:40 Plt Morphology Comment Normal (NORMAL) 12/29/19 04:40 RBC Morphology Normal (NORMAL) 12/29/19 04:40 Sample Site Rr 12/29/19 05:20 ABG pH 7.410 (7.35-7.45) 12/29/19 05:20 ABG pCO2 68.0 mmHg (35.0-45.0) H* 12/29/19 05:20 ABG pO2 72.0 mmHg (80.0-100.0) L 12/29/19 05:20 ABG HCO3 43.1 mmol/L (22-26) H* 12/29/19 05:20 ABG O2 Saturation 94.0 % (90-100) 12/29/19 05:20 ABG Base Excess 15.3 mmol/L (-2.0-2.0) H 12/29/19 05:20 [place]iston Test Pos 12/29/19 05:20 A-a Gradient 413.0 mmHg 12/29/19 05:20 FiO2 80.0 12/29/19 05:20 Blood Gas Comments [facility] well 12/29/19 05:20 Sodium 138 mmol/L (136-145) 12/29/19 04:40 Corrected Sodium 139 mmol/L (136-145) 12/29/19 04:40 Potassium 5.2 mmol/L (3.5-5.1) H 12/29/19 04:40 Chloride 101 mmol/L (98-107) 12/29/19 04:40 Carbon Dioxide 36.6 mmol/L (21-32) H 12/29/19 04:40 BUN 21 mg/dL (7-18) H 12/29/19 04:40 Creatinine 0.56 mg/dL (0.55-1.02) 12/29/19 04:40 Est GFR (MDRD) Af Amer > 60 (>60) 12/29/19 04:40 Est GFR (MDRD) Non-Af > 60 (>60) 12/29/19 04:40 Glucose 134 mg/dL (65-99) H 12/29/19 04:40 Calcium 8.1 mg/dL (8.5-10.1) L 12/29/19 04:40 Corrected Calcium 9.4 mg/dL (8.5-10.1) 12/29/19 04:40 Ferritin 236 ng/mL (8-252) 12/29/19 04:40 Total Bilirubin 0.40 mg/dL (0.2-1.0) 12/29/19 04:40 AST 24 Units/L (15-37) 12/29/19 04:40 ALT 23 Units/L (12-78) 12/29/19 04:40 Alkaline Phosphatase 82 Units/L (46-116) 12/29/19 04:40 C-Reactive Protein 1.40 mg/L (0-3.0) 12/29/19 04:40 Total Protein 4.8 g/dL (6.4-8.2) L 12/29/19 04:40 Albumin 2.4 g/dL (3.4-5.0) L 12/29/19 04:40 Globulin 2.4 g/dL (2.5-4.5) L 12/29/19 04:40 Albumin/Globulin Ratio 1.0 Ratio (1.1-2.1) L 12/29/19 04:40 Specimen Type Catherized urine 12/18/19 11:45 Urine Color Pale yellow (YELLOW) 12/18/19 11:45 Urine Appearance Clear (CLEAR) 12/18/19 11:45 Urine pH 6.0 (5.0 - 8.0) 12/18/19 11:45 Ur Specific [place] 1.015 (1.000-1.030) 12/18/19 11:45 Urine Protein 3+ (NEGATIVE) 12/18/19 11:45 Urine Glucose (UA) Negative (NEGATIVE) 12/18/19 11:45 Urine Ketones 3+ (NEGATIVE) 12/18/19 11:45 Urine Occult Blood 2+ (NEGATIVE) 12/18/19 11:45 Urine Nitrite Negative (NEGATIVE) 12/18/19 11:45 Urine Bilirubin Negative (NEGATIVE) 12/18/19 11:45 Urine Urobilinogen Normal (NORMAL) 12/18/19 11:45 Ur Leukocyte Esterase Negative (NEGATIVE) 12/18/19 11:45 Urine RBC 0-2 /HPF (0-3) 12/18/19 11:45 Urine WBC None seen /HPF (0-5) 12/18/19 11:45 Ur Squamous Epith Cells Negative /HPF (NEGATIVE) 12/18/19 11:45 Amorphous Sediment Trace /HPF (NEGATIVE) 12/18/19 11:45 Urine Bacteria Negative /HPF (NEGATIVE) 12/18/19 11:45 Granular Casts Rare /LPF (NEGATIVE) 12/18/19 11:45 Urine Mucus Few /HPF (NEGATIVE) 12/18/19 11:45 Ur Culture Indicated? No/not indicated 12/18/19 11:45 Vancomycin Trough 13.4 ug/mL (15-20) L 12/28/19 08:50 - Plan (1) COVID-19 Status: Acute Plan: BIPAP, 1/2NS AT 75 ML/HR, INVANZ 1G IV DAILY, VANCOMYCIN 750 MG IV Q12H, ZINC SULFATE 220MG PO DAILY, ROBITUSSIN DM 10ML PO QID, DUONEBS QID, PULMICORT NEBS BID, MUCOMYST IN [place]B [place], AND SOLU-MEDROL 80MG IV Q8H. 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 transplanted heart: [place] heart Associated angina: with stable angina Qualified Code(s): I25.118 - Atherosclerotic heart disease of [place] coronary artery with other forms of angina pectoris (7) Dyslipidemia Status: Chronic (8) GERD (gastroesophageal reflux disease) Status: Chronic Qualifiers: Esophagitis presence: esophagitis presence not specified (9) COPD (chronic obstructive pulmonary disease) Status: Chronic Qualifiers: COPD type: chronic bronchitis Chronic bronchitis type: mucopurulent Qualified Code(s): J41.1 - Mucopurulent chronic bronchitis (10) HTN (hypertension) Status: Chronic Qualifiers: Hypertension type: essential hypertension Qualified Code(s): I10 - [place] l (primary) hypertension
[2019-12-29] MEDS: VANCOMYCIN HCL 1 G in D5W 250 ML IV 250 ML IV SCH ×2 (12:54→23:20)
[2019-12-29] MEDS ORDERED: PHARMACY COMMENT IV NR (20:30)
[2019-12-29] MEDS: XARELTO PO SCH (21:35)
[2019-12-29] MEDS: CRESTOR TAB 10 MG PO SCH (21:36)
[2019-12-29 21:37] LABS: CREATININE 0.84 mg/dL (0.55-1.02)
[2019-12-29] MEDS: KLONOPIN TAB 1 MG PO SCH (21:37)
[2019-12-29] MEDS: MUCINEX EXPECTORANT PO SCH (21:37)
--- NOTE | 2019-12-29 21:41 | PCM.PROG ---
Progress Note - Progress Note for Day of Date of Exam: 12/29/19 - Subjective Subjective: IS BEING TREATED FOR PNEUMONIA DUE TO COVID-19, PNEUMONIA, AND HYPOXIA. TODAY, SHE IS LYING IN BED WITH EYES CLOSED ON MORNING ROUNDS. SHE AWAKENS AND RESPONDS TO VERBAL STIMULI. SHE CONTINUES WITH SHORTNESS OF BREATH AND WEAKNESS, HOWEVER, SHE SEEMS TO BE FEELING BETTER TODAY. SHE HAS BEEN ON BEDREST DUE TO INCREASED EXERTIONAL SOB AND HYPOXIA. SHE HAS A MORAES CATHETER IN PLACE. SHE IS NOTED TO BE ON HEATED HIGH FLOW OXYGEN ON MORNING ROUNDS. ON EXAMINATION, HEART IS REGULAR IN RATE AND RHYTHM. BILATERAL LUNGS ARE NOTED WITH DIMINISHED LUNG SOUNDS THROUGHOUT. ABDOMEN IS ROUND, SOFT, AND NON-TENDER WITH NORMAL BOWEL SOUNDS NOTED IN ALL QUADRANTS. HER VITALS THIS MORNING ARE: 97.9-70-27-84%HHF-145/71. LABS WERE OBTAINED. ABNORMAL LAB VALUES INCLUDE THE FOLLOWING: WBC 13.2, HGB 10.4, HCT 32.0, POTASSIUM 5.2, CARBON DIOXIDE 36.6, BUN 21, GLUCOSE 134, CALCIUM 8.1, TOTAL PROTEIN 4.8, ALBUMIN 2.4. AN ABG WAS REPEATED THIS MORNING AND REVEALED: PH 7.410, PC02 68.0, PO2 72.0, HC03 43.1, 02 SAT 94.0, BASE EXCESS 15.3, FI02 80.0. SPUTUM CULTURES REVEAL GROWTH OF E.COLI AND MRSA. A CHEST XRAY WAS OBTAINED AND REVEALED: Cardiac silhouette is mildly enlarged. No significant change in diffuse bilateral airspace disease. No pneumothorax. SHE IS CURRENTLY RECEIVING 1/2NS AT 75 ML/HR, ALBUMIN 25% IV DAILY, INVANZ 1G IV DAILY, VANCOMYCIN 750G IV Q12H, ZINC SULFATE 220MG PO DAILY, ROBITUSSIN DM 10ML PO QID, DUONEBS QID, PULMICORT NEBS BID, MUCOMYST IN NEB [place], AND SOLU-MEDROL 80MG IV Q8H, MORPHINE 2MG IV Q4H, AND HER HOME MEDICATIONS WERE RESUMED. TODAY, WE WILL DISCONTINUE THE MORPHINE AND DECREASE IV FLUIDS TO 30 ML/HR. WE WILL CONTINUE TO ATTEMPT TO WEAN HER OXYGEN DOWN. OTHERWISE, WE PLAN TO FOLLOW UP WITH AM LABS, CHEST XRAY, AND ABG AND CONTINUE TO MONITOR. - Past Medical Family Social History Past Med/Fam/Surg Hx: No changes since H&P Allergies: Allergies codeine Allergy (Verified 02/06/17 22:08) hydromorphone [From Dilaudid] Allergy (Verified 02/06/17 22:08) influenza virus vaccine qs 5544-0349 (36 mos, up) [From Single Use EZ Flu] Allergy (Verified 03/24/17 18:04) meperidine [From Demerol] Allergy (Verified 02/06/17 22:08) prednisone Allergy (Verified 02/06/17 22:08) - Review of Systems ROS: No change since H&P - Vital Signs and I&O's Vital Signs: Temperature 97.7 F Pulse Rate 66 Respiratory Rate 16 Blood Pressure [Left Arm] 120/56 Blood Pressure 173/59 O2 Sat by Pulse Oximetry 91 Intake and Output: Intake & Output 12/27/19 12/28/19 12/29/19 12/30/19 11:59 11:59 11:59 11:59 Intake Total 4800 / 4800 3574 / 3574 3522 / 3522 1180 / 1180 Output Total 2300 / 2300 1900 / 1900 1900 / 1900 1500 / 1500 Balance 2500 / 2500 1674 / 1674 1622 / 1622 -320 / -320 - Physical Exam Oriented: Normal Eyes: Normal Ear: Normal Nose: Normal Throat: Normal Respiratory: Generalized, Diminished Cardiovascular: Normal : Normal Auscultation: Bowel Sounds: Normal Palpation: Normal Tenderness: Normal Skin: Normal Musculoskeletal: Normal Psychiatric: Normal Mood Description: Calm Affect: Normal Speech Pattern: Clear, Appropriate - Laboratory and Diagnostics Result Diagrams: 12/29/19 04:40 12/29/19 04:40 Labs: 12/17/19 15:03 Blood Blood Culture - Final 12/17/19 15:00 Blood Blood Culture - Final 12/17/19 16:30 Sputum - Expectorated Sputum Sputum Culture - Final Escherichia Coli Methicillin Resis Staph Aureus 12/17/19 16:30 Sputum - Expectorated Sputum - Final Laboratory WBC 13.2 X10^3/uL (3.6-10.0) H 12/29/19 04:40 RBC 3.51 X10^6/uL (3.5-5.4) 12/29/19 04:40 Hgb 10.4 g/dL (12.0-16.0) L 12/29/19 04:40 Hct 32.0 % (36.0-47.0) L 12/29/19 04:40 MCV 91.1 fL (80.0-100.0) 12/29/19 04:40 MCH 29.6 pg (27.0-34.0) 12/29/19 04:40 MCHC 32.5 g/dL (33.0-35.0) L 12/29/19 04:40 RDW 14.4 % (11.6-16.5) 12/29/19 04:40 Plt Count 217 X10^3/uL (150.0-450.0) 12/29/19 04:40 Plt Count Comment Adequate (ADEQUATE) 12/29/19 04:40 MPV 7.5 fL (7.4-11.0) 12/29/19 04:40 Neut % (Auto) 93.7 % (42.0-75.0) H 12/29/19 04:40 Lymph % (Auto) 3.1 % (21.0-51.0) L 12/29/19 04:40 [place] % (Auto) 3.1 % (0.0-13.0) 12/29/19 04:40 Eos % (Auto) 0.0 % (0.9-2.9) L 12/29/19 04:40 Baso % (Auto) 0.1 % (0.2-1.0) L 12/29/19 04:40 Neut # (Auto) 12.3 x10^3/uL (2.2-4.8) H 12/29/19 04:40 Lymph # (Auto) 0.4 X10^3/uL (1.3-2.9) L 12/29/19 04:40 [place] # (Auto) 0.4 x10^3/uL (0.3-0.8) 12/29/19 04:40 Eos # (Auto) 0.0 x10^3/uL (0.0-0.2) 12/29/19 04:40 Baso # (Auto) 0.0 X10^3/uL (0.0-0.1) 12/29/19 04:40 Absolute Nucleated RBC 0.0 /100WBC 12/29/19 04:40 Total Counted 100 12/29/19 04:40 Neutrophils % (Manual) 93 % (39-76) H 12/29/19 04:40 Band Neutrophils % 1 % (0-10) 12/22/19 04:29 Lymphocytes % (Manual) 5 % (13-43) L 12/29/19 04:40 Monocytes % (Manual) 2 % (4-9) L 12/29/19 04:40 Plt Morphology Comment Normal (NORMAL) 12/29/19 04:40 RBC Morphology Normal (NORMAL) 12/29/19 04:40 Sample Site Rr 12/29/19 05:20 ABG pH 7.410 (7.35-7.45) 12/29/19 05:20 ABG pCO2 68.0 mmHg (35.0-45.0) H* 12/29/19 05:20 ABG pO2 72.0 mmHg (80.0-100.0) L 12/29/19 05:20 ABG HCO3 43.1 mmol/L (22-26) H* 12/29/19 05:20 ABG O2 Saturation 94.0 % (90-100) 12/29/19 05:20 ABG Base Excess 15.3 mmol/L (-2.0-2.0) H 12/29/19 05:20 Triston Test Pos 12/29/19 05:20 A-a Gradient 413.0 mmHg 12/29/19 05:20 FiO2 80.0 12/29/19 05:20 Blood Gas Comments Quinten well sw 12/29/19 05:20 Sodium 138 mmol/L (136-145) 12/29/19 04:40 Corrected Sodium 139 mmol/L (136-145) 12/29/19 04:40 Potassium 5.2 mmol/L (3.5-5.1) H 12/29/19 04:40 Chloride 101 mmol/L (98-107) 12/29/19 04:40 Carbon Dioxide 36.6 mmol/L (21-32) H 12/29/19 04:40 BUN 21 mg/dL (7-18) H 12/29/19 04:40 Creatinine 0.56 mg/dL (0.55-1.02) 12/29/19 04:40 Est GFR (MDRD) Af Amer > 60 (>60) 12/29/19 04:40 Est GFR (MDRD) Non-Af > 60 (>60) 12/29/19 04:40 Glucose 134 mg/dL (65-99) H 12/29/19 04:40 Calcium 8.1 mg/dL (8.5-10.1) L 12/29/19 04:40 Corrected Calcium 9.4 mg/dL (8.5-10.1) 12/29/19 04:40 Ferritin 236 ng/mL (8-252) 12/29/19 04:40 Total Bilirubin 0.40 mg/dL (0.2-1.0) 12/29/19 04:40 AST 24 Units/L (15-37) 12/29/19 04:40 ALT 23 Units/L (12-78) 12/29/19 04:40 Alkaline Phosphatase 82 Units/L (46-116) 12/29/19 04:40 C-Reactive Protein 1.40 mg/L (0-3.0) 12/29/19 04:40 Total Protein 4.8 g/dL (6.4-8.2) L 12/29/19 04:40 Albumin 2.4 g/dL (3.4-5.0) L 12/29/19 04:40 Globulin 2.4 g/dL (2.5-4.5) L 12/29/19 04:40 Albumin/Globulin Ratio 1.0 Ratio (1.1-2.1) L 12/29/19 04:40 Specimen Type Catherized urine 12/18/19 11:45 Urine Color Pale yellow (YELLOW) 12/18/19 11:45 Urine Appearance Clear (CLEAR) 12/18/19 11:45 Urine pH 6.0 (5.0 - 8.0) 12/18/19 11:45 Ur Specific [place] 1.015 (1.000-1.030) 12/18/19 11:45 Urine Protein 3+ (NEGATIVE) 12/18/19 11:45 Urine Glucose (UA) Negative (NEGATIVE) 12/18/19 11:45 Urine Ketones 3+ (NEGATIVE) 12/18/19 11:45 Urine Occult Blood 2+ (NEGATIVE) 12/18/19 11:45 Urine Nitrite Negative (NEGATIVE) 12/18/19 11:45 Urine Bilirubin Negative (NEGATIVE) 12/18/19 11:45 Urine Urobilinogen Normal (NORMAL) 12/18/19 11:45 Ur Leukocyte Esterase Negative (NEGATIVE) 12/18/19 11:45 Urine RBC 0-2 /HPF (0-3) 12/18/19 11:45 Urine WBC None seen /HPF (0-5) 12/18/19 11:45 Ur Squamous Epith Cells Negative /HPF (NEGATIVE) 12/18/19 11:45 Amorphous Sediment Trace /HPF (NEGATIVE) 12/18/19 11:45 Urine Bacteria Negative /HPF (NEGATIVE) 12/18/19 11:45 Granular Casts Rare /LPF (NEGATIVE) 12/18/19 11:45 Urine Mucus Few /HPF (NEGATIVE) 12/18/19 11:45 Ur Culture Indicated? No/not indicated 12/18/19 11:45 Vancomycin Trough 13.4 ug/mL (15-20) L 12/28/19 08:50 - Plan (1) COVID-19 Status: Acute Plan: 1/2NS AT 30 ML/HR, INVANZ 1G IV DAILY, VANCOMYCIN 750 MG IV Q12H, ZINC SULFATE 220MG PO DAILY, ROBITUSSIN DM 10ML PO QID, DUONEBS QID, PULMICORT NEBS BID, MUCOMYST IN NEB [place], AND SOLU-MEDROL 80MG IV Q8H. (2) Pneumonia Status: Acute Qualifiers: Pneumonia type: due to unspecified organism Laterality: unspecified laterality Lung location: unspecified part of lung Qualified Code(s): J18.9 - Pneumonia, unspecified organism (3) Hypoxia Status: Acute
[2019-12-29 21:44] LABS: VANCOMYCIN,TROUGH 20.3 ug/mL (15-20)
[2019-12-30] MEDS: VANCOMYCIN HCL 1 G in D5W 250 ML IV 250 ML IV SCH ×2 (00:25→14:00)
[2019-12-30 05:00] LABS: ABG BASE EXCESS 14.1 mmol/L (-2.0-2.0)
[2019-12-30 05:01] LABS: ABG ALLEN TEST POS; ABG HCO3 43.1 mmol/L (22-26)
[2019-12-30] MEDS: NORCO 7.5/325 MG TAB PO SCH ×3 (05:54→22:32)
[2019-12-30] MEDS: NEURONTIN CAP 300 MG PO SCH ×3 (05:54→21:00)
[2019-12-30] MEDS: SOLU-Medrol 40 MG VIAL IVP SCH ×3 (05:56→22:33)
--- NOTE | 2019-12-30 06:14 | RAD ---
HISTORYShortness of breathSTUDYChest AP [id number]/12/2020FINDINGSPatient is rotated to the right. The heart is enlarged. Diffuse b ilateral alveolar infiltrates are again identified not significantly different from the prior examina tion. No pleural effusions are identified. The bony thorax is unremarkable.IMPRESSIONNo change in car diomegalyNo change diffuse bilateral alveolar fillingElectronically signed by: MARY ELLEN CORRAL (Dec 30, 2019 06:12:51)
[2019-12-30 06:35] LABS: BASOPHILS # (AUTO) 0.1 X10^3/uL (0.0-0.1); BASOPHILS % (AUTO) 0.7 % (0.2-1.0); HEMOGLOBIN 10.3 g/dL (12.0-16.0); LYMPHOCYTES # (AUTO) 0.3 X10^3/uL (1.3-2.9); MEAN CORPUSCULAR HEMOGLOBIN 29.2 pg (27.0-34.0); MEAN CORPUSCULAR HGB CONC 32.2 g/dL (33.0-35.0); MEAN CORPUSCULAR VOLUME 90.7 fL (80.0-100.0); MEAN PLATELET VOLUME 7.3 fL (7.4-11.0); MONOCYTES # (AUTO) 0.4 x10^3/uL (0.3-0.8); NEUTROPHILS # (AUTO) 10.2 x10^3/uL (2.2-4.8); NEUTROPHILS % (AUTO) 92.3 % (42.0-75.0); PLATELET COUNT 206 X10^3/uL (150.0-450.0); RED BLOOD COUNT 3.53 X10^6/uL (3.5-5.4); RED CELL DISTRIBUTION WIDTH 14.3 % (11.6-16.5); WHITE BLOOD COUNT 11.1 X10^3/uL (3.6-10.0)
[2019-12-30 07:28] LABS: ALANINE AMINOTRANSFERASE 26 Units/L (12-78); ALBUMIN 2.9 g/dL (3.4-5.0); ALKALINE PHOSPHATASE 77 Units/L (46-116); ASPARTATE AMINO TRANSFERASE 22 Units/L (15-37); BLOOD UREA NITROGEN 24 mg/dL (7-18); CALCIUM 8.1 mg/dL (8.5-10.1); CARBON DIOXIDE 34.8 mmol/L (21-32); CHLORIDE 101 mmol/L (98-107); COR NA(FOR HYPERGLY) 139 mmol/L (136-145); SODIUM 138 mmol/L (136-145); TOTAL PROTEIN 5.3 g/dL (6.4-8.2); eGFR NON BLACK RACES > 60 (>60)
[2019-12-30 07:51] LABS: BAND NEUTROPHILS % 2 % (0-10)
[2019-12-30 07:52] LABS: PLATELET MORPHOLOGY COMMENT NORMAL (NORMAL)
[2019-12-30] MEDS: MUCOMYST (RESPIRATORY USE ONLY) NEB SCH ×2 (09:00→21:40)
[2019-12-30] MEDS: DUONEB 0.5 MG/3 MG (3 mL) NEB SCH ×4 (09:00→21:40)
[2019-12-30] MEDS: PULMICORT NEB TX 0.5 MG NEB SCH ×2 (09:00→21:40)
[2019-12-30] MEDS: CELEBREX PO SCH (09:14)
[2019-12-30] MEDS: CITRACAL + VITAMIN D PO SCH ×2 (09:14→20:55)
[2019-12-30] MEDS: COLACE CAP 100 MG PO SCH ×2 (09:15→20:55)
[2019-12-30] MEDS: CLARITIN PO SCH (09:15)
[2019-12-30] MEDS: COREG TAB 12.5 MG PO SCH ×2 (09:15→20:55)
[2019-12-30] MEDS: FOLIC ACID TAB 1 MG PO SCH (09:16)
[2019-12-30] MEDS: FERROUS GLUCONATE PO SCH (09:16)
[2019-12-30] MEDS: PLAVIX PO SCH (09:17)
[2019-12-30] MEDS: NexIUM PO SCH (09:17)
[2019-12-30] MEDS: INVANZ INJ 1 GM VIAL 1 GM in NS 100 ML IV + SPIKE MINIBAG* 100 ML IV SCH (09:17)
[2019-12-30] MEDS: ROBITUSSIN DM PO SCH ×4 (09:18→23:20)
[2019-12-30] MEDS: POTASSIUM CHLORIDE LIQ 20 MEQ UDC PO SCH (09:18)
[2019-12-30] MEDS: PROzac PO SCH (09:18)
[2019-12-30] MEDS: SINGULAIR TAB 10 MG PO SCH (09:19)
[2019-12-30] MEDS: TAB-A-VITE PO SCH (09:19)
[2019-12-30] MEDS: VITAMIN D3 125 mcg (5,000 UNITS) PO SCH (09:20)
[2019-12-30] MEDS: VITAMIN C PO SCH (09:20)
[2019-12-30] MEDS: VSL#3 PO SCH (09:20)
[2019-12-30] MEDS: ZINC SULFATE PO SCH (09:21)
[2019-12-30] MEDS: ALBUMIN HUMAN 25%- 100 ML 100 ML IV SCH (09:46)
[2019-12-30] MEDS ORDERED: XYLOCAINE 1 % (PLAIN) ONE (11:19)
[2019-12-30] MEDS: NS 1/2 1000 ML IV 1,000 ML IV SCH (12:19)
--- NOTE | 2019-12-30 12:31 | RAD ---
HISTORYATTEMPTED CENTRAL LINE R/O PNEUMOSTUDYCHEST, 1 VIEWCOMPARISONChest film December 30, 2019FINDINGSThe trachea is midline. The cardiac silhouette is mildly enlarged. Bilateral airspace opacities diffusely in both lungs are unchanged from earlier film at 4:31 a.m. consistent with pneumonia. No pneumothorax is observed.. The bony thorax is unremarkable. The patient has had a vertebroplasty in the upper lumbar spine at the level of prior compression fracture. There is a right shoulder prosthesis in place in good position.IMPRESSIONNo change in the diffuse bilateral infiltrates compared paired to earlier film this morning. No pneumothorax is seen.Electronically signed by: TITI HYDE (Dec 30, 2019 12:31:13)
[2019-12-30 13:19] LABS: CREATININE 0.8 mg/dL (0.55-1.02); VANCOMYCIN,TROUGH 17.6 ug/mL (15-20)
[2019-12-30] MEDS: CRESTOR TAB 10 MG PO SCH (20:55)
[2019-12-30] MEDS: XARELTO PO SCH (20:55)
[2019-12-30] MEDS: MUCINEX EXPECTORANT PO SCH (20:55)
[2019-12-30] MEDS: KLONOPIN TAB 1 MG PO SCH (20:55)
--- NOTE | 2019-12-30 22:12 | PCM.PROG ---
Progress Note - Progress Note for Day of Date of Exam: 12/30/19 - Subjective Subjective: IS BEING TREATED FOR PNEUMONIA DUE TO COVID-19, PNEUMONIA, AND HYPOXIA. TODAY, SHE IS ALERT AND ORIENTED, LYING IN BED ON MORNING ROUNDS. SHE WAS PLACED BACK ON THE BIPAP EARLY THIS MORNING DUE TO INCREASED C02 LEVELS. SHE CONTINUES WITH SHORTNESS OF BREATH AND WEAKNESS TODAY, HOWEVER, REPORTS SLIGHT IMPROVEMENT IN SYMTOMS. ON EXAMINATION, HEART IS REGULAR IN RATE AND RHYTHM. BILATERAL LUNGS ARE NOTED WITH DIMINISHED LUNG SOUNDS THROUGHOUT. ABDOMEN IS ROUND, SOFT, AND NON-TENDER WITH NORMAL BOWEL SOUNDS NOTED IN ALL QUADRANTS. HER VITALS THIS MORNING ARE: 98.8-53-15-91%BIPAP-128/61. LABS WERE OBTAINED. ABNORMAL LAB VALUES INCLUDE THE FOLLOWING: WBC 11.1, HGB 10.3, HCT 32.0, CARBON DIOXIDE 34.8, BUN 24, GLUCOSE 140, CALCIUM 8.1, TOTAL PROTEIN 5.3, ALBUMIN 2.9. AN ABG WAS REPEATED THIS MORNING AND REVEALED: PH 7.350, PC02 78.0, P02 65.0, HC03 43.1, 02 SAT 91.0, BASE EXCESS 14.1, FI02 80.0. SPUTUM CULTURES REVEAL GROWTH OF E.COLI AND MRSA. A CHEST XRAY WAS OBTAINED AND REVEALED: No change in cardiomegaly. No change diffuse bilateral alveolar filling. SHE IS CURRENTLY RECEIVING 1/2NS AT 30 ML/HR, ALBUMIN 25% IV DAILY, INVANZ 1G IV DAILY, VANCOMYCIN 750G IV Q12H, ZINC SULFATE 220MG PO DAILY, ROBITUSSIN DM 10ML PO QID, DUONEBS QID, PULMICORT NEBS BID, MUCOMYST IN NEB [place], AND SOLU-MEDROL 80MG IV Q8H, AND HER HOME MEDICATIONS WERE RESUMED. WE WILL CONTINUE TO ATTEMPT TO WEAN HER OXYGEN DOWN TODAY. OTHERWISE, WE PLAN TO FOLLOW UP WITH AM LABS, CHEST XRAY, AND ABG AND CONTINUE TO MONITOR. - Past Medical Family Social History Past Med/Fam/Surg Hx: No changes since H&P Allergies: Allergies codeine Allergy (Verified 02/06/17 22:08) hydromorphone [From Dilaudid] Allergy (Verified 02/06/17 22:08) influenza virus vaccine qs 4395-2645 (36 mos, up) [From Single Use EZ Flu] Allergy (Verified 03/24/17 18:04) meperidine [From Demerol] Allergy (Verified 02/06/17 22:08) prednisone Allergy (Verified 02/06/17 22:08) - Review of Systems ROS: No change since H&P - Vital Signs and I&O's Vital Signs: Temperature 98.5 F Pulse Rate 67 Respiratory Rate 20 Blood Pressure [Left Arm] 120/56 Blood Pressure 141/65 O2 Sat by Pulse Oximetry 96 Intake and Output: Intake & Output 12/28/19 12/29/19 12/30/19 12/31/19 11:59 11:59 11:59 11:59 Intake Total 3574 / 3574 3522 / 3522 2256 / 2256 1680 / 1680 Output Total 1900 / 1900 1900 / 1900 2400 / 2400 350 / 350 Balance 1674 / 1674 1622 / 1622 -144 / -144 1330 / 1330 - Physical Exam Oriented: Normal Eyes: Normal Ear: Normal Nose: Normal Throat: Normal Respiratory: Generalized, Diminished Cardiovascular: Normal : Normal Auscultation: Bowel Sounds: Normal Tenderness: Normal Skin: Normal Musculoskeletal: Normal Psychiatric: Normal Mood Description: Calm Affect: Normal Speech Pattern: Clear, Appropriate - Laboratory and Diagnostics Result Diagrams: 12/30/19 04:40 12/30/19 12:35 Labs: 12/17/19 15:03 Blood Blood Culture - Final 12/17/19 15:00 Blood Blood Culture - Final 12/17/19 16:30 Sputum - Expectorated Sputum Sputum Culture - Final Escherichia Coli Methicillin Resis Staph Aureus 12/17/19 16:30 Sputum - Expectorated Sputum - Final Laboratory WBC 11.1 X10^3/uL (3.6-10.0) H 12/30/19 04:40 RBC 3.53 X10^6/uL (3.5-5.4) 12/30/19 04:40 Hgb 10.3 g/dL (12.0-16.0) L 12/30/19 04:40 Hct 32.0 % (36.0-47.0) L 12/30/19 04:40 MCV 90.7 fL (80.0-100.0) 12/30/19 04:40 MCH 29.2 pg (27.0-34.0) 12/30/19 04:40 MCHC 32.2 g/dL (33.0-35.0) L 12/30/19 04:40 RDW 14.3 % (11.6-16.5) 12/30/19 04:40 Plt Count 206 X10^3/uL (150.0-450.0) 12/30/19 04:40 Plt Count Comment Adequate (ADEQUATE) 12/30/19 04:40 MPV 7.3 fL (7.4-11.0) L 12/30/19 04:40 Neut % (Auto) 92.3 % (42.0-75.0) H 12/30/19 04:40 Lymph % (Auto) 3.0 % (21.0-51.0) L 12/30/19 04:40 [place] % (Auto) 4.0 % (0.0-13.0) 12/30/19 04:40 Eos % (Auto) 0.0 % (0.9-2.9) L 12/30/19 04:40 Baso % (Auto) 0.7 % (0.2-1.0) 12/30/19 04:40 Neut # (Auto) 10.2 x10^3/uL (2.2-4.8) H 12/30/19 04:40 Lymph # (Auto) 0.3 X10^3/uL (1.3-2.9) L 12/30/19 04:40 [place] # (Auto) 0.4 x10^3/uL (0.3-0.8) 12/30/19 04:40 Eos # (Auto) 0.0 x10^3/uL (0.0-0.2) 12/30/19 04:40 Baso # (Auto) 0.1 X10^3/uL (0.0-0.1) 12/30/19 04:40 Absolute Nucleated RBC 0.1 /100WBC 12/30/19 04:40 Total Counted 100 12/30/19 04:40 Neutrophils % (Manual) 90 % (39-76) H 12/30/19 04:40 Band Neutrophils % 2 % (0-10) 12/30/19 04:40 Lymphocytes % (Manual) 6 % (13-43) L 12/30/19 04:40 Monocytes % (Manual) 2 % (4-9) L 12/30/19 04:40 Plt Morphology Comment Normal (NORMAL) 12/30/19 04:40 RBC Morphology Normal (NORMAL) 12/30/19 04:40 Sample Site Rr 12/30/19 04:55 ABG pH 7.350 (7.35-7.45) 12/30/19 04:55 ABG pCO2 78.0 mmHg (35.0-45.0) H* 12/30/19 04:55 ABG pO2 65.0 mmHg (80.0-100.0) L 12/30/19 04:55 ABG HCO3 43.1 mmol/L (22-26) H* 12/30/19 04:55 ABG O2 Saturation 91.0 % (90-100) 12/30/19 04:55 ABG Base Excess 14.1 mmol/L (-2.0-2.0) H 12/30/19 04:55 Triston Test Pos 12/30/19 04:55 A-a Gradient 408.0 mmHg 12/30/19 04:55 FiO2 80.0 12/30/19 04:55 Blood Gas Comments Quinten well ae 12/30/19 04:55 Sodium 138 mmol/L (136-145) 12/30/19 04:40 Corrected Sodium 139 mmol/L (136-145) 12/30/19 04:40 Potassium 5.0 mmol/L (3.5-5.1) 12/30/19 04:40 Chloride 101 mmol/L (98-107) 12/30/19 04:40 Carbon Dioxide 34.8 mmol/L (21-32) H 12/30/19 04:40 BUN 24 mg/dL (7-18) H 12/30/19 04:40 Creatinine 0.80 mg/dL (0.55-1.02) 12/30/19 12:35 Est GFR (MDRD) Af Amer > 60 (>60) 12/30/19 04:40 Est GFR (MDRD) Non-Af > 60 (>60) 12/30/19 04:40 Glucose 140 mg/dL (65-99) H 12/30/19 04:40 Calcium 8.1 mg/dL (8.5-10.1) L 12/30/19 04:40 Corrected Calcium 9.0 mg/dL (8.5-10.1) 12/30/19 04:40 Ferritin 226 ng/mL (8-252) 12/30/19 04:40 Total Bilirubin 0.50 mg/dL (0.2-1.0) 12/30/19 04:40 AST 22 Units/L (15-37) 12/30/19 04:40 ALT 26 Units/L (12-78) 12/30/19 04:40 Alkaline Phosphatase 77 Units/L (46-116) 12/30/19 04:40 C-Reactive Protein 0.70 mg/L (0-3.0) 12/30/19 04:40 Total Protein 5.3 g/dL (6.4-8.2) L 12/30/19 04:40 Albumin 2.9 g/dL (3.4-5.0) L 12/30/19 04:40 Globulin 2.4 g/dL (2.5-4.5) L 12/30/19 04:40 Albumin/Globulin Ratio 1.2 Ratio (1.1-2.1) 12/30/19 04:40 Specimen Type Catherized urine 12/18/19 11:45 Urine Color Pale yellow (YELLOW) 12/18/19 11:45 Urine Appearance Clear (CLEAR) 12/18/19 11:45 Urine pH 6.0 (5.0 - 8.0) 12/18/19 11:45 Ur Specific [place] 1.015 (1.000-1.030) 12/18/19 11:45 Urine Protein 3+ (NEGATIVE) 12/18/19 11:45 Urine Glucose (UA) Negative (NEGATIVE) 12/18/19 11:45 Urine Ketones 3+ (NEGATIVE) 12/18/19 11:45 Urine Occult Blood 2+ (NEGATIVE) 12/18/19 11:45 Urine Nitrite Negative (NEGATIVE) 12/18/19 11:45 Urine Bilirubin Negative (NEGATIVE) 12/18/19 11:45 Urine Urobilinogen Normal (NORMAL) 12/18/19 11:45 Ur Leukocyte Esterase Negative (NEGATIVE) 12/18/19 11:45 Urine RBC 0-2 /HPF (0-3) 12/18/19 11:45 Urine WBC None seen /HPF (0-5) 12/18/19 11:45 Ur Squamous Epith Cells Negative /HPF (NEGATIVE) 12/18/19 11:45 Amorphous Sediment Trace /HPF (NEGATIVE) 12/18/19 11:45 Urine Bacteria Negative /HPF (NEGATIVE) 12/18/19 11:45 Granular Casts Rare /LPF (NEGATIVE) 12/18/19 11:45 Urine Mucus Few /HPF (NEGATIVE) 12/18/19 11:45 Ur Culture Indicated? No/not indicated 12/18/19 11:45 Vancomycin Trough 17.6 ug/mL (15-) 12/30/19 12:35 - Plan (1) COVID-19 Status: Acute Plan: 1/2NS AT 30 ML/HR, INVANZ 1G IV DAILY, VANCOMYCIN 750 MG IV Q12H, ZINC SULFATE 220MG PO DAILY, ROBITUSSIN DM 10ML PO QID, DUONEBS QID, PULMICORT NEBS BID, MUCOMYST IN NEB [place], AND SOLU-MEDROL 80MG IV Q8H. (2) Pneumonia Status: Inactive Qualifiers: Pneumonia type: due to unspecified organism Laterality: unspecified laterality Lung location: unspecified part of lung Qualified Code(s): J18.9 - Pneumonia, unspecified organism (3) Hypoxia Status: Inactive
[2019-12-31] MEDS: NS 1/2 1000 ML IV 1,000 ML IV SCH ×2 (01:06→17:27)
[2019-12-31] MEDS: VANCOMYCIN HCL 1 G in D5W 250 ML IV 250 ML IV SCH ×2 (01:07→14:00)
[2019-12-31 04:38] LABS: ABG BASE EXCESS 12.5 mmol/L (-2.0-2.0)
[2019-12-31 04:40] LABS: ABG ALLEN TEST POS; ABG HCO3 41.5 mmol/L (22-26)
[2019-12-31] MEDS: SOLU-Medrol 40 MG VIAL IVP SCH ×3 (05:24→21:15)
[2019-12-31] MEDS: NORCO 7.5/325 MG TAB PO SCH ×3 (05:30→21:14)
[2019-12-31] MEDS: NEURONTIN CAP 300 MG PO SCH ×3 (05:30→21:14)
[2019-12-31 05:40] LABS: BASOPHILS % (AUTO) 0.1 % (0.2-1.0); HEMATOCRIT 30.1 % (36.0-47.0); HEMOGLOBIN 9.9 g/dL (12.0-16.0); LYMPHOCYTES # (AUTO) 0.4 X10^3/uL (1.3-2.9); LYMPHOCYTES % (AUTO) 3.6 % (21.0-51.0); MEAN CORPUSCULAR HEMOGLOBIN 30.2 pg (27.0-34.0); MEAN CORPUSCULAR HGB CONC 32.9 g/dL (33.0-35.0); MEAN CORPUSCULAR VOLUME 91.7 fL (80.0-100.0); MEAN PLATELET VOLUME 7.8 fL (7.4-11.0); MONOCYTES # (AUTO) 0.5 x10^3/uL (0.3-0.8); MONOCYTES % (AUTO) 4.9 % (0.0-13.0); NEUTROPHILS # (AUTO) 8.9 x10^3/uL (2.2-4.8); NEUTROPHILS % (AUTO) 91.4 % (42.0-75.0); PLATELET COUNT 190 X10^3/uL (150.0-450.0); RED BLOOD COUNT 3.28 X10^6/uL (3.5-5.4); RED CELL DISTRIBUTION WIDTH 14.2 % (11.6-16.5); WHITE BLOOD COUNT 9.8 X10^3/uL (3.6-10.0)
[2019-12-31 05:57] LABS: ALANINE AMINOTRANSFERASE 53 Units/L (12-78); ALBUMIN 3.1 g/dL (3.4-5.0); ALKALINE PHOSPHATASE 76 Units/L (46-116); ASPARTATE AMINO TRANSFERASE 30 Units/L (15-37); BLOOD UREA NITROGEN 24 mg/dL (7-18); CALCIUM 8.5 mg/dL (8.5-10.1); CARBON DIOXIDE 35.5 mmol/L (21-32); CHLORIDE 102 mmol/L (98-107); COR CA(FOR HYPOALB) 9.2 mg/dL (8.5-10.1); COR NA(FOR HYPERGLY) 140 mmol/L (136-145); CREATININE 0.55 mg/dL (0.55-1.02); SODIUM 139 mmol/L (136-145); TOTAL PROTEIN 5.2 g/dL (6.4-8.2); eGFR NON BLACK RACES > 60 (>60)
[2019-12-31 06:10] LABS: PLATELET MORPHOLOGY COMMENT NORMAL (NORMAL)
--- NOTE | 2019-12-31 06:17 | RAD ---
HISTORYSOBSTUDYCHEST, 1 VIEWCOMPARISONOne day priorTECHNIQUEAP view of the chestFINDINGSCardiac silhouette is stably enlarged. No significant change in diffuse bilateral airspace disease. No pneumothorax. Right shoulder arthroplasty noted.IMPRESSIONNo significant change.Electronically signed by: Orlando Garcia (Dec 31, 2019 06:16:22)
[2019-12-31] MEDS: ALBUMIN HUMAN 25%- 100 ML 100 ML IV SCH (08:28)
[2019-12-31] MEDS: INVANZ INJ 1 GM VIAL 1 GM in NS 100 ML IV + SPIKE MINIBAG* 100 ML IV SCH (08:30)
[2019-12-31] MEDS: POTASSIUM CHLORIDE LIQ 20 MEQ UDC PO SCH (08:33)
[2019-12-31] MEDS: PROzac PO SCH (08:34)
[2019-12-31] MEDS: ZINC SULFATE PO SCH (08:34)
[2019-12-31] MEDS: CITRACAL + VITAMIN D PO SCH ×2 (08:34→20:33)
[2019-12-31] MEDS: VSL#3 PO SCH (08:34)
[2019-12-31] MEDS: NexIUM PO SCH (08:34)
[2019-12-31] MEDS: ROBITUSSIN DM PO SCH ×4 (08:34→20:34)
[2019-12-31] MEDS: PLAVIX PO SCH (08:35)
[2019-12-31] MEDS: CELEBREX PO SCH (08:36)
[2019-12-31] MEDS: VITAMIN C PO SCH (08:36)
[2019-12-31] MEDS: TAB-A-VITE PO SCH (08:37)
[2019-12-31] MEDS: FOLIC ACID TAB 1 MG PO SCH (08:37)
[2019-12-31] MEDS: FERROUS GLUCONATE PO SCH (08:37)
[2019-12-31] MEDS: COREG TAB 12.5 MG PO SCH ×2 (08:37→20:33)
[2019-12-31] MEDS: VITAMIN D3 125 mcg (5,000 UNITS) PO SCH (08:37)
[2019-12-31] MEDS: SINGULAIR TAB 10 MG PO SCH (08:37)
[2019-12-31] MEDS: COLACE CAP 100 MG PO SCH ×2 (08:38→20:33)
[2019-12-31] MEDS: CLARITIN PO SCH (08:38)
[2019-12-31] MEDS: PULMICORT NEB TX 0.5 MG NEB SCH ×2 (09:25→20:55)
[2019-12-31] MEDS: MUCOMYST (RESPIRATORY USE ONLY) NEB SCH ×2 (09:25→20:55)
[2019-12-31] MEDS: DUONEB 0.5 MG/3 MG (3 mL) NEB SCH ×4 (09:25→20:55)
[2019-12-31] MEDS: LASIX PO SCH (09:38)
[2019-12-31] MEDS ORDERED: MUCOMYST (RESPIRATORY USE ONLY) ONE (13:22)
[2019-12-31] MEDS: MUCINEX EXPECTORANT PO SCH (20:34)
[2019-12-31] MEDS: CRESTOR TAB 10 MG PO SCH (20:34)
[2019-12-31] MEDS: KLONOPIN TAB 1 MG PO SCH (20:34)
[2019-12-31] MEDS: XARELTO PO SCH (20:35)
[2020-01-01] MEDS ORDERED: NS 1/2 1000 ML IV 1,000 ML IV ONE (00:44)
[2020-01-01] MEDS: NS 1/2 1000 ML IV 1,000 ML IV SCH ×3 (01:20→21:10)
[2020-01-01] MEDS: VANCOMYCIN HCL 1 G in D5W 250 ML IV 250 ML IV SCH ×2 (01:29→16:46)
[2020-01-01 05:43] LABS: BASOPHILS % (AUTO) 0.3 % (0.2-1.0); HEMATOCRIT 27.8 % (36.0-47.0); HEMOGLOBIN 9.2 g/dL (12.0-16.0); LYMPHOCYTES # (AUTO) 0.5 X10^3/uL (1.3-2.9); LYMPHOCYTES % (AUTO) 4.6 % (21.0-51.0); MEAN CORPUSCULAR HEMOGLOBIN 30.1 pg (27.0-34.0); MEAN CORPUSCULAR HGB CONC 33.1 g/dL (33.0-35.0); MEAN CORPUSCULAR VOLUME 90.9 fL (80.0-100.0); MEAN PLATELET VOLUME 7.4 fL (7.4-11.0); MONOCYTES # (AUTO) 0.5 x10^3/uL (0.3-0.8); MONOCYTES % (AUTO) 5.3 % (0.0-13.0); NEUTROPHILS % (AUTO) 89.8 % (42.0-75.0); PLATELET COUNT 177 X10^3/uL (150.0-450.0); RED BLOOD COUNT 3.05 X10^6/uL (3.5-5.4); RED CELL DISTRIBUTION WIDTH 14.6 % (11.6-16.5)
[2020-01-01 05:56] LABS: ABG BASE EXCESS 16.6 mmol/L (-2.0-2.0)
[2020-01-01 05:57] LABS: ABG ALLEN TEST POS; ABG HCO3 45.7 mmol/L (22-26)
[2020-01-01 06:02] LABS: ALANINE AMINOTRANSFERASE 45 Units/L (12-78); ALBUMIN 3.1 g/dL (3.4-5.0); ALKALINE PHOSPHATASE 67 Units/L (46-116); ASPARTATE AMINO TRANSFERASE 19 Units/L (15-37); BLOOD UREA NITROGEN 25 mg/dL (7-18); CALCIUM 8.5 mg/dL (8.5-10.1); CARBON DIOXIDE 37.1 mmol/L (21-32); CHLORIDE 100 mmol/L (98-107); COR CA(FOR HYPOALB) 9.2 mg/dL (8.5-10.1); COR NA(FOR HYPERGLY) 140 mmol/L (136-145); CREATININE 0.63 mg/dL (0.55-1.02); SODIUM 139 mmol/L (136-145); eGFR NON BLACK RACES > 60 (>60)
[2020-01-01] MEDS: SOLU-Medrol 40 MG VIAL IVP SCH ×3 (06:10→21:10)
--- NOTE | 2020-01-01 07:42 | RAD ---
HISTORYCovidSTUDYPortable AP [id number]/2020FINDINGSContinued cardiac enlargement. There is no definite change in appear ance of the lungs. Diffuse bilateral confluent airspace disease is again noted. No complicating pneum othorax or large pleural effusion is evident.IMPRESSIONNo change. Persistent bilateral pulmonary infi ltrates consistent with multilobar pneumonia.Electronically signed by: VILLA PLEITEZ (Jan 01, 2020 0 7:41:45)
[2020-01-01] MEDS: NORCO 7.5/325 MG TAB PO SCH ×3 (08:00→21:10)
[2020-01-01] MEDS: INVANZ INJ 1 GM VIAL 1 GM in NS 100 ML IV + SPIKE MINIBAG* 100 ML IV SCH (09:00)
[2020-01-01] MEDS: PULMICORT NEB TX 0.5 MG NEB SCH ×2 (09:20→21:38)
[2020-01-01] MEDS: DUONEB 0.5 MG/3 MG (3 mL) NEB SCH ×4 (09:20→21:38)
[2020-01-01] MEDS: MUCOMYST (RESPIRATORY USE ONLY) NEB SCH ×2 (09:20→21:38)
[2020-01-01] MEDS: FOLIC ACID TAB 1 MG PO SCH (10:00)
[2020-01-01] MEDS: PROzac PO SCH (10:40)
[2020-01-01] MEDS: SINGULAIR TAB 10 MG PO SCH (10:40)
[2020-01-01] MEDS: FERROUS GLUCONATE PO SCH (10:41)
[2020-01-01] MEDS: CLARITIN PO SCH (10:42)
[2020-01-01] MEDS: CITRACAL + VITAMIN D PO SCH ×2 (10:42→21:14)
[2020-01-01] MEDS: POTASSIUM CHLORIDE LIQ 20 MEQ UDC PO SCH (10:43)
[2020-01-01] MEDS: NEURONTIN CAP 300 MG PO SCH ×3 (10:44→21:11)
[2020-01-01] MEDS: VSL#3 PO SCH (10:46)
[2020-01-01] MEDS: NexIUM PO SCH (10:47)
[2020-01-01] MEDS: ZINC SULFATE PO SCH (10:47)
[2020-01-01] MEDS: COLACE CAP 100 MG PO SCH ×2 (10:47→21:13)
[2020-01-01] MEDS: CELEBREX PO SCH (10:48)
[2020-01-01] MEDS: COREG TAB 12.5 MG PO SCH ×2 (10:49→21:13)
[2020-01-01] MEDS: VITAMIN C PO SCH (10:50)
[2020-01-01] MEDS: VITAMIN D3 125 mcg (5,000 UNITS) PO SCH (10:50)
[2020-01-01] MEDS: TAB-A-VITE PO SCH (10:50)
[2020-01-01] MEDS: ALBUMIN HUMAN 25%- 100 ML 100 ML IV SCH (11:00)
[2020-01-01] MEDS: LASIX PO SCH (11:00)
[2020-01-01] MEDS: ROBITUSSIN DM PO SCH ×4 (11:03→21:12)
[2020-01-01] MEDS: PLAVIX PO SCH (11:30)
[2020-01-01 16:06] LABS: CREATININE 0.88 mg/dL (0.55-1.02)
[2020-01-01 16:08] LABS: VANCOMYCIN,TROUGH 20.5 ug/mL (15-20)
[2020-01-01] MEDS: VANCOMYCIN HCL 750 MG VIAL 750 MG in D5W 250 ML IV 250 ML IV SCH ×2 (17:00→21:12)
[2020-01-01] MEDS: XARELTO PO SCH (21:11)
[2020-01-01] MEDS: MUCINEX EXPECTORANT PO SCH (21:12)
[2020-01-01] MEDS: CRESTOR TAB 10 MG PO SCH (21:13)
[2020-01-01] MEDS: KLONOPIN TAB 1 MG PO SCH (21:14)
[2020-01-02 04:33] LABS: ABG BASE EXCESS 19.2 mmol/L (-2.0-2.0)
[2020-01-02 04:39] LABS: ABG ALLEN TEST POS; ABG HCO3 49.1 mmol/L (22-26)
[2020-01-02] MEDS: NEURONTIN CAP 300 MG PO SCH ×3 (05:04→22:17)
[2020-01-02] MEDS: NORCO 7.5/325 MG TAB PO SCH ×3 (05:04→22:19)
[2020-01-02] MEDS: SOLU-Medrol 40 MG VIAL IVP SCH ×3 (05:06→22:16)
[2020-01-02 05:40] LABS: BASOPHILS % (AUTO) 0.4 % (0.2-1.0); HEMATOCRIT 26.8 % (36.0-47.0); HEMOGLOBIN 8.9 g/dL (12.0-16.0); LYMPHOCYTES # (AUTO) 0.4 X10^3/uL (1.3-2.9); LYMPHOCYTES % (AUTO) 3.8 % (21.0-51.0); MEAN CORPUSCULAR HEMOGLOBIN 30.5 pg (27.0-34.0); MEAN CORPUSCULAR HGB CONC 33.2 g/dL (33.0-35.0); MEAN CORPUSCULAR VOLUME 91.8 fL (80.0-100.0); MEAN PLATELET VOLUME 7.7 fL (7.4-11.0); MONOCYTES # (AUTO) 0.4 x10^3/uL (0.3-0.8); MONOCYTES % (AUTO) 3.9 % (0.0-13.0); NEUTROPHILS # (AUTO) 9.6 x10^3/uL (2.2-4.8); NEUTROPHILS % (AUTO) 91.9 % (42.0-75.0); PLATELET COUNT 158 X10^3/uL (150.0-450.0); RED BLOOD COUNT 2.92 X10^6/uL (3.5-5.4); RED CELL DISTRIBUTION WIDTH 14.9 % (11.6-16.5); WHITE BLOOD COUNT 10.4 X10^3/uL (3.6-10.0)
[2020-01-02 05:42] LABS: ALANINE AMINOTRANSFERASE 46 Units/L (12-78); ALBUMIN 3.3 g/dL (3.4-5.0); ALKALINE PHOSPHATASE 65 Units/L (46-116); ASPARTATE AMINO TRANSFERASE 23 Units/L (15-37); BLOOD UREA NITROGEN 24 mg/dL (7-18); CALCIUM 8.4 mg/dL (8.5-10.1); CARBON DIOXIDE 39.7 mmol/L (21-32); CHLORIDE 100 mmol/L (98-107); COR NA(FOR HYPERGLY) 141 mmol/L (136-145); CREATININE 0.58 mg/dL (0.55-1.02); SODIUM 140 mmol/L (136-145); TOTAL PROTEIN 5.2 g/dL (6.4-8.2); eGFR NON BLACK RACES > 60 (>60)
[2020-01-02 06:11] LABS: HYPOCHROMASIA SLIGHT; PLATELET MORPHOLOGY COMMENT NORMAL (NORMAL)
[2020-01-02] MEDS: PULMICORT NEB TX 0.5 MG NEB SCH ×2 (09:25→21:45)
[2020-01-02] MEDS: DUONEB 0.5 MG/3 MG (3 mL) NEB SCH ×4 (09:25→21:45)
[2020-01-02] MEDS: MUCOMYST (RESPIRATORY USE ONLY) NEB SCH ×2 (09:25→21:45)
[2020-01-02] MEDS: ALBUMIN HUMAN 25%- 100 ML 100 ML IV SCH (10:39)
[2020-01-02] MEDS: POTASSIUM CHLORIDE LIQ 20 MEQ UDC PO SCH (10:40)
[2020-01-02] MEDS: VITAMIN D3 125 mcg (5,000 UNITS) PO SCH (10:40)
[2020-01-02] MEDS: ZINC SULFATE PO SCH (10:40)
[2020-01-02] MEDS: VSL#3 PO SCH (10:40)
[2020-01-02] MEDS: PROzac PO SCH (10:41)
[2020-01-02] MEDS: VITAMIN C PO SCH (10:41)
[2020-01-02] MEDS: VANCOMYCIN HCL 750 MG VIAL 750 MG in D5W 250 ML IV 250 ML IV SCH ×2 (10:41→22:18)
[2020-01-02] MEDS: TAB-A-VITE PO SCH (10:42)
[2020-01-02] MEDS: SINGULAIR TAB 10 MG PO SCH (10:42)
[2020-01-02] MEDS: ROBITUSSIN DM PO SCH ×4 (10:43→22:15)
[2020-01-02] MEDS: NexIUM PO SCH (10:43)
[2020-01-02] MEDS: NS 1/2 1000 ML IV 1,000 ML IV SCH (10:43)
[2020-01-02] MEDS: COREG TAB 12.5 MG PO SCH ×2 (10:44→22:16)
[2020-01-02] MEDS: FERROUS GLUCONATE PO SCH (10:44)
[2020-01-02] MEDS: COLACE CAP 100 MG PO SCH ×2 (10:44→22:15)
[2020-01-02] MEDS: FOLIC ACID TAB 1 MG PO SCH (10:44)
[2020-01-02] MEDS: CLARITIN PO SCH (10:45)
[2020-01-02] MEDS: CELEBREX PO SCH (10:45)
[2020-01-02] MEDS: CITRACAL + VITAMIN D PO SCH ×2 (10:45→22:15)
[2020-01-02] MEDS: INVANZ INJ 1 GM VIAL 1 GM in NS 100 ML IV + SPIKE MINIBAG* 100 ML IV SCH (10:48)
--- NOTE | 2020-01-02 14:12 | RAD ---
HISTORYSHORTNESS OF BREATHSTUDYCHEST, 1 VIEWCOMPARISONYesterdayFINDINGSThe trachea is midline. The cardiac silhouette is stable in size. The lungs demonstrate multifocal airspace opacities unchanged from prior.. The bony thorax is stableIMPRESSIONStable multifocal airspace disease.Electronically signed by: ZOHRA SIMMS (Jan 02, 2020 14:11:16)
--- NOTE | 2020-01-02 16:59 | PCM.PROG ---
Progress Note - Progress Note for Day of Date of Exam: 12/31/19 - Subjective Subjective: IS BEING TREATED FOR PNEUMONIA DUE TO COVID-19, PNEUMONIA, AND HYPOXIA. TODAY, SHE IS ALERT AND ORIENTED, LYING IN BED ON MORNING ROUNDS. SHE IS CURRENTLY UTILIZING HEATED HIGH FLOW OXYGEN. SHE CONTINUES WITH SHORTNESS OF BREATH AND WEAKNESS TODAY, HOWEVER, REPORTS SLIGHT IMPROVEMENT IN SYMTOMS. ON EXAMINATION, HEART IS REGULAR IN RATE AND RHYTHM. BILATERAL LUNGS ARE NOTED WITH DIMINISHED LUNG SOUNDS THROUGHOUT. ABDOMEN IS ROUND, SOFT, AND NON-TENDER WITH NORMAL BOWEL SOUNDS NOTED IN ALL QUADRANTS. HER VITALS THIS MORNING ARE: 97.7-71-12-96%HHF-150/65. LABS WERE OBTAINED. ABNORMAL LAB VALUES INCLUDE THE FOLLOWING: RBC 3.28, HGB 9.9, HCT 30.1, CARBON DIOXIDE 35.5, BUN 24, GLUCOSE 133, TOTAL PROTEIN 5.2, ALBUMIN 3.1. AN ABG WAS REPEATED THIS MORNING AND REVEALED: PH 7.340, PC02 77.0, P02 73.0, HC03 41.5, 02 SATURATION 94.0, BASE EXCESS 12.5. SPUTUM CULTURES REVEAL GROWTH OF E.COLI AND MRSA. A CHEST XRAY WAS OBTAINED AND REVEALED: No significant change. SHE IS CURRENTLY RECEIVING 1/2NS AT 30 ML/HR, ALBUMIN 25% IV DAILY, INVANZ 1G IV DAILY, VANCOMYCIN 750G IV Q12H, ZINC SULFATE 220MG PO DAILY, ROBITUSSIN DM 10ML PO QID, DUONEBS QID, PULMICORT NEBS BID, MUCOMYST IN [facility] [place], AND SOLU-MEDROL 80MG IV Q8H, AND HER HOME MEDICATIONS WERE RESUMED. WE WILL CONTINUE TO ATTEMPT TO WEAN HER OXYGEN DOWN TODAY. OTHERWISE, WE PLAN TO FOLLOW UP WITH AM LABS, CHEST XRAY, AND ABG AND CONTINUE TO MONITOR. - Past Medical Family Social History Past Med/Fam/Surg Hx: No changes since H&P Allergies: Allergies codeine Allergy (Verified 02/06/17 22:08) hydromorphone [From Dilaudid] Allergy (Verified 02/06/17 22:08) influenza virus vaccine qs 5744-2879 (36 mos, up) [From Single Use EZ Flu] Allergy (Verified 03/24/17 18:04) meperidine [From Demerol] Allergy (Verified 02/06/17 22:08) prednisone Allergy (Verified 02/06/17 22:08) - Review of Systems ROS: No change since H&P - Vital Signs and I&O's Vital Signs: Temperature 97.8 F Pulse Rate 83 Respiratory Rate 28 Blood Pressure [Left Arm] 120/56 Blood Pressure 138/61 O2 Sat by Pulse Oximetry 89 Intake and Output: Intake & Output 12/31/19 01/01/20 01/02/20 01/03/20 11:59 11:59 11:59 11:59 Intake Total 2765 / 2765 2739 / 2739 1945 / 1945 1130 / 1130 Output Total 1400 / 1400 3350 / 3350 1800 / 1800 Balance 1365 / 1365 -611 / -611 145 / 145 1130 / 1130 - Physical Exam Oriented: Normal Eyes: Normal Ear: Normal Nose: Normal Throat: Normal Respiratory: Generalized, Diminished Cardiovascular: Normal : Normal Auscultation: Bowel Sounds: Normal Tenderness: Normal Skin: Normal Musculoskeletal: Normal Psychiatric: Normal Mood Description: Calm Affect: Normal Speech Pattern: Clear, Appropriate - Laboratory and Diagnostics Result Diagrams: 01/02/20 04:22 01/02/20 04:22 Labs: 12/17/19 15:03 Blood Blood Culture - Final 12/17/19 15:00 Blood Blood Culture - Final 12/17/19 16:30 Sputum - Expectorated Sputum Sputum Culture - Final Escherichia Coli Methicillin Resis Staph Aureus 12/17/19 16:30 Sputum - Expectorated Sputum - Final Laboratory WBC 10.4 X10^3/uL (3.6-10.0) H 01/02/20 04:22 RBC 2.92 X10^6/uL (3.5-5.4) L 01/02/20 04:22 Hgb 8.9 g/dL (12.0-16.0) L 01/02/20 04:22 Hct 26.8 % (36.0-47.0) L 01/02/20 04:22 MCV 91.8 fL (80.0-100.0) 01/02/20 04:22 MCH 30.5 pg (27.0-34.0) 01/02/20 04:22 MCHC 33.2 g/dL (33.0-35.0) 01/02/20 04:22 RDW 14.9 % (11.6-16.5) 01/02/20 04:22 Plt Count 158 X10^3/uL (150.0-450.0) 01/02/20 04:22 Plt Count Comment Adequate (ADEQUATE) 01/02/20 04:22 MPV 7.7 fL (7.4-11.0) 01/02/20 04:22 Neut % (Auto) 91.9 % (42.0-75.0) H 01/02/20 04:22 Lymph % (Auto) 3.8 % (21.0-51.0) L 01/02/20 04:22 [place] % (Auto) 3.9 % (0.0-13.0) 01/02/20 04:22 Eos % (Auto) 0.0 % (0.9-2.9) L 01/02/20 04:22 Baso % (Auto) 0.4 % (0.2-1.0) 01/02/20 04:22 Neut # (Auto) 9.6 x10^3/uL (2.2-4.8) H 01/02/20 04:22 Lymph # (Auto) 0.4 X10^3/uL (1.3-2.9) L 01/02/20 04:22 [place] # (Auto) 0.4 x10^3/uL (0.3-0.8) 01/02/20 04:22 Eos # (Auto) 0.0 x10^3/uL (0.0-0.2) 01/02/20 04:22 Baso # (Auto) 0.0 X10^3/uL (0.0-0.1) 01/02/20 04:22 Absolute Nucleated RBC 0.0 /100WBC 01/02/20 04:22 Total Counted 100 01/02/20 04:22 Neutrophils % (Manual) 95 % (39-76) H 01/02/20 04:22 Band Neutrophils % 2 % (0-10) 12/30/19 04:40 Lymphocytes % (Manual) 3 % (13-43) L 01/02/20 04:22 Monocytes % (Manual) 2 % (4-9) L 01/02/20 04:22 Plt Morphology Comment Normal (NORMAL) 01/02/20 04:22 RBC Morphology Abnormal (NORMAL) A 01/02/20 04:22 Hypochromasia Slight A 01/02/20 04:22 PT 14.2 SECONDS (11.8-14.3) 01/01/20 11:52 INR Target Range - 01/01/20 11:52 INR 1.13 (0.8-1.3) 01/01/20 11:52 APTT 20.0 SECONDS (22.9-36.5) L 01/01/20 11:52 PTT Comment - 01/01/20 11:52 Sample Site Lrad 01/02/20 04:27 ABG pH 7.360 (7.35-7.45) 01/02/20 04:27 ABG pCO2 87.0 mmHg (35.0-45.0) H* 01/02/20 04:27 ABG pO2 67.0 mmHg (80.0-100.0) L 01/02/20 04:27 ABG HCO3 49.1 mmol/L (22-26) H* 01/02/20 04:27 ABG O2 Saturation 92.0 % (90-100) 01/02/20 04:27 ABG Base Excess 19.2 mmol/L (-2.0-2.0) H 01/02/20 04:27 [place] Test Pos 01/02/20 04:27 A-a Gradient 502.0 mmHg 01/02/20 04:27 FiO2 95.0 01/02/20 04:27 Blood Gas Comments Quinten abg well-mtf 01/02/20 04:27 Sodium 140 mmol/L (136-145) 01/02/20 04:22 Corrected Sodium 141 mmol/L (136-145) 01/02/20 04:22 Potassium 4.9 mmol/L (3.5-5.1) 01/02/20 04:22 Chloride 100 mmol/L (98-107) 01/02/20 04:22 Carbon Dioxide 39.7 mmol/L (21-32) H 01/02/20 04:22 BUN 24 mg/dL (7-18) H 01/02/20 04:22 Creatinine 0.58 mg/dL (0.55-1.02) 01/02/20 04:22 Est GFR (MDRD) Af Amer > 60 (>60) 01/02/20 04:22 Est GFR (MDRD) Non-Af > 60 (>60) 01/02/20 04:22 Glucose 138 mg/dL (65-99) H 01/02/20 04:22 Calcium 8.4 mg/dL (8.5-10.1) L 01/02/20 04:22 Corrected Calcium 9.0 mg/dL (8.5-10.1) 01/02/20 04:22 Ferritin 186 ng/mL (8-252) 01/02/20 04:22 Total Bilirubin 0.50 mg/dL (0.2-1.0) 01/02/20 04:22 AST 23 Units/L (15-37) 01/02/20 04:22 ALT 46 Units/L (12-78) 01/02/20 04:22 Alkaline Phosphatase 65 Units/L (46-116) 01/02/20 04:22 C-Reactive Protein < 0.50 mg/L (0-3.0) 01/02/20 04:22 Total Protein 5.2 g/dL (6.4-8.2) L 01/02/20 04:22 Albumin 3.3 g/dL (3.4-5.0) L 01/02/20 04:22 Globulin 1.9 g/dL (2.5-4.5) L 01/02/20 04:22 Albumin/Globulin Ratio 1.7 Ratio (1.1-2.1) 01/02/20 04:22 Specimen Type Catherized urine 12/18/19 11:45 Urine Color Pale yellow (YELLOW) 12/18/19 11:45 Urine Appearance Clear (CLEAR) 12/18/19 11:45 Urine pH 6.0 (5.0 - 8.0) 12/18/19 11:45 Ur Specific [place] 1.015 (1.000-1.030) 12/18/19 11:45 Urine Protein 3+ (NEGATIVE) 12/18/19 11:45 Urine Glucose (UA) Negative (NEGATIVE) 12/18/19 11:45 Urine Ketones 3+ (NEGATIVE) 12/18/19 11:45 Urine Occult Blood 2+ (NEGATIVE) 12/18/19 11:45 Urine Nitrite Negative (NEGATIVE) 12/18/19 11:45 Urine Bilirubin Negative (NEGATIVE) 12/18/19 11:45 Urine Urobilinogen Normal (NORMAL) 12/18/19 11:45 Ur Leukocyte Esterase Negative (NEGATIVE) 12/18/19 11:45 Urine RBC 0-2 /HPF (0-3) 12/18/19 11:45 Urine WBC None seen /HPF (0-5) 12/18/19 11:45 Ur Squamous Epith Cells Negative /HPF (NEGATIVE) 12/18/19 11:45 Amorphous Sediment Trace /HPF (NEGATIVE) 12/18/19 11:45 Urine Bacteria Negative /HPF (NEGATIVE) 12/18/19 11:45 Granular Casts Rare /LPF (NEGATIVE) 12/18/19 11:45 Urine Mucus Few /HPF (NEGATIVE) 12/18/19 11:45 Ur Culture Indicated? No/not indicated 12/18/19 11:45 Vancomycin Trough 20.5 ug/mL (15-20) H* 01/01/20 15:28 - Plan (1) COVID-19 Status: Acute Plan: 1/2NS AT 30 ML/HR, INVANZ 1G IV DAILY, VANCOMYCIN 750 MG IV Q12H, ZINC SULFATE 220MG PO DAILY, ROBITUSSIN DM 10ML PO QID, DUONEBS QID, PULMICORT NEBS BID, MUCOMYST IN [place], AND SOLU-MEDROL 80MG IV Q8H. (2) Pneumonia Status: Inactive Qualifiers: Pneumonia type: due to unspecified organism Laterality: unspecified l aterality Lung location: unspecified part of lung Qualified Code(s): J18.9 - Pneumonia, unspecified organism (3) Hypoxia Status: Inactive
[2020-01-02] MEDS ORDERED: SOLU-Medrol 40 MG VIAL ONE (21:02)
[2020-01-02] MEDS: CRESTOR TAB 10 MG PO SCH (22:17)
[2020-01-02] MEDS: XARELTO PO SCH (22:17)
[2020-01-02] MEDS: MUCINEX EXPECTORANT PO SCH (22:18)
[2020-01-02] MEDS: KLONOPIN TAB 1 MG PO SCH (22:19)
[2020-01-03 04:18] LABS: ABG BASE EXCESS 16.9 mmol/L (-2.0-2.0)
[2020-01-03 04:19] LABS: ABG ALLEN TEST POS; ABG HCO3 46.3 mmol/L (22-26)
[2020-01-03 05:03] LABS: BASOPHILS % (AUTO) 0.1 % (0.2-1.0); HEMATOCRIT 26.5 % (36.0-47.0); HEMOGLOBIN 8.7 g/dL (12.0-16.0); LYMPHOCYTES # (AUTO) 0.3 X10^3/uL (1.3-2.9); LYMPHOCYTES % (AUTO) 3.2 % (21.0-51.0); MEAN CORPUSCULAR HEMOGLOBIN 30.4 pg (27.0-34.0); MEAN CORPUSCULAR HGB CONC 32.8 g/dL (33.0-35.0); MEAN CORPUSCULAR VOLUME 92.7 fL (80.0-100.0); MEAN PLATELET VOLUME 7.8 fL (7.4-11.0); MONOCYTES # (AUTO) 0.4 x10^3/uL (0.3-0.8); MONOCYTES % (AUTO) 4.5 % (0.0-13.0); NEUTROPHILS # (AUTO) 9.1 x10^3/uL (2.2-4.8); NEUTROPHILS % (AUTO) 92.2 % (42.0-75.0); PLATELET COUNT 140 X10^3/uL (150.0-450.0); RED BLOOD COUNT 2.86 X10^6/uL (3.5-5.4); RED CELL DISTRIBUTION WIDTH 14.6 % (11.6-16.5); WHITE BLOOD COUNT 9.9 X10^3/uL (3.6-10.0)
[2020-01-03 05:11] LABS: ALANINE AMINOTRANSFERASE 63 Units/L (12-78); ALBUMIN 3.5 g/dL (3.4-5.0); ALKALINE PHOSPHATASE 75 Units/L (46-116); ASPARTATE AMINO TRANSFERASE 35 Units/L (15-37); BLOOD UREA NITROGEN 24 mg/dL (7-18); CALCIUM 8.3 mg/dL (8.5-10.1); CARBON DIOXIDE 39.7 mmol/L (21-32); CHLORIDE 102 mmol/L (98-107); COR NA(FOR HYPERGLY) 141 mmol/L (136-145); CREATININE 0.68 mg/dL (0.55-1.02); SODIUM 140 mmol/L (136-145); TOTAL PROTEIN 5.4 g/dL (6.4-8.2); eGFR NON BLACK RACES > 60 (>60)
[2020-01-03] MEDS ORDERED: NS 1/2 1000 ML IV 1,000 ML IV ONE (05:33)
[2020-01-03 05:42] LABS: PLATELET MORPHOLOGY COMMENT NORMAL (NORMAL)
[2020-01-03 05:43] LABS: HYPOCHROMASIA SLIGHT
[2020-01-03] MEDS: NEURONTIN CAP 300 MG PO SCH ×4 (05:47→22:15)
[2020-01-03] MEDS: NORCO 7.5/325 MG TAB PO SCH ×4 (05:50→22:17)
[2020-01-03] MEDS ORDERED: SOLU-Medrol 125 MG VIAL ONE (05:54)
[2020-01-03] MEDS: NS 1/2 1000 ML IV 1,000 ML IV SCH ×2 (06:07→13:25)
[2020-01-03] MEDS: SOLU-Medrol 40 MG VIAL IVP SCH ×3 (06:11→22:14)
--- NOTE | 2020-01-03 06:11 | RAD ---
HISTORYSOB, COVID, PNEUMONIASTUDYCHEST, 1 [id number]/2020TECHNIQUEAP view of the chestFINDINGSCardiac silhouette is stably enlarged and partially silhouetted by airspace disease. Right shoulder arthroplasty again noted. Stable diffuse bilateral airspace disease. No definite pleural effusion or pneumothorax.IMPRESSIONStable diffuse bilateral airspace disease.Electronically signed by: Orlando Garcia (Jan 03, 2020 06:11:09)
[2020-01-03] MEDS ORDERED: PULMICORT NEB TX 0.5 MG NEB ONE (07:11)
[2020-01-03] MEDS ORDERED: DUONEB 0.5 MG/3 MG (3 mL) NEB ONE (07:11)
[2020-01-03] MEDS: DUONEB 0.5 MG/3 MG (3 mL) NEB SCH ×4 (08:15→21:10)
[2020-01-03] MEDS: MUCOMYST (RESPIRATORY USE ONLY) NEB SCH ×2 (08:15→21:10)
[2020-01-03] MEDS: PULMICORT NEB TX 0.5 MG NEB SCH ×2 (08:15→21:10)
[2020-01-03] MEDS: ALBUMIN HUMAN 25%- 100 ML 100 ML IV SCH (08:16)
[2020-01-03] MEDS: CITRACAL + VITAMIN D PO SCH ×2 (08:19→22:15)
[2020-01-03] MEDS: CLARITIN PO SCH (08:22)
[2020-01-03] MEDS: CELEBREX PO SCH (08:22)
[2020-01-03] MEDS: COLACE CAP 100 MG PO SCH ×2 (08:23→22:47)
[2020-01-03] MEDS: COREG TAB 12.5 MG PO SCH ×2 (08:23→22:15)
[2020-01-03] MEDS: FERROUS GLUCONATE PO SCH (08:24)
[2020-01-03] MEDS: FOLIC ACID TAB 1 MG PO SCH (08:25)
[2020-01-03] MEDS: INVANZ INJ 1 GM VIAL 1 GM in NS 100 ML IV + SPIKE MINIBAG* 100 ML IV SCH (08:25)
[2020-01-03] MEDS: NexIUM PO SCH (08:26)
[2020-01-03] MEDS: POTASSIUM CHLORIDE LIQ 20 MEQ UDC PO SCH (08:26)
[2020-01-03] MEDS: PROzac PO SCH (08:27)
[2020-01-03] MEDS: SINGULAIR TAB 10 MG PO SCH (08:28)
[2020-01-03] MEDS: ROBITUSSIN DM PO SCH ×4 (08:28→22:20)
[2020-01-03] MEDS: TAB-A-VITE PO SCH (08:29)
[2020-01-03] MEDS: VSL#3 PO SCH (08:29)
[2020-01-03] MEDS: ZINC SULFATE PO SCH (08:30)
[2020-01-03] MEDS: VANCOMYCIN HCL 750 MG VIAL 750 MG in D5W 250 ML IV 250 ML IV SCH ×2 (08:30→22:21)
[2020-01-03] MEDS: VITAMIN C PO SCH (08:30)
[2020-01-03] MEDS ORDERED: PHARMACY COMMENT IV NR (08:30)
[2020-01-03] MEDS: VITAMIN D3 125 mcg (5,000 UNITS) PO SCH (08:31)
[2020-01-03] MEDS: LASIX PO SCH (09:34)
--- NOTE | 2020-01-03 18:48 | PCM.PROG ---
Progress Note - Progress Note for Day of Date of Exam: 01/01/20 - Subjective Subjective: IS BEING TREATED FOR PNEUMONIA DUE TO COVID-19 AND HYPOXIA. TODAY, SHE IS ALERT AND ORIENTED, LYING IN BED ON MORNING ROUNDS. SHE IS CURRENTLY UTILIZING HEATED HIGH FLOW OXYGEN. SHE CONTINUES WITH SHORTNESS OF BREATH AND WEAKNESS. SHE DENIES SIGNIFICANT IMPROVEMENT SINCE YESTERDAY. RESPIRATORY DID HAVE TO INCREASE HER OXYGEN SOME THROUGHOUT THE NIGHT. ON EXAMINATION, HEART IS REGULAR IN RATE AND RHYTHM. BILATERAL LUNGS ARE NOTED WITH DIMINISHED LUNG SOUNDS THROUGHOUT. ABDOMEN IS ROUND, SOFT, AND NON-TENDER WITH NORMAL BOWEL SOUNDS NOTED IN ALL QUADRANTS. HER VITALS THIS MORNING ARE: 97.8-81-32-91%-144/83. LABS WERE OBTAINED. ABNORMAL LAB VALUES INCLUDE THE FOLLOWING: RBC 3.05, HGB 9.2, HCT 27.8, CARBON DIOXIDE 37.1, BUN 25, GLUCOSE 133, TOTAL PROTEIN 5.0, ALBUMIN 3.1. AN ABG WAS REPEATED THIS MORNING AND REVEALED: PH 7.370, PC02 79.0, P02 68.0, HC03 45.7, 02 SAT 93.0, FI02 93.0. A CHEST XRAY WAS OBTAINED AND REVEALED: No change. Persistent bilateral pulmonary infiltrates consistent with multilobar pneumonia. SHE IS CURRENTLY RECEIVING 1/2NS AT 30 ML/HR, ALBUMIN 25% IV DAILY, INVANZ 1G IV DAILY, VANCOMYCIN 750G IV Q12H, ZINC SULFATE 220MG PO DAILY, ROBITUSSIN DM 10ML PO QID, DUONEBS QID, PULMICORT NEBS BID, MUCOMYST IN [place], AND SOLU-MEDROL 80MG IV Q8H, AND HER HOME MEDICATIONS WERE RESUMED. WE WILL CONTINUE TO ATTEMPT TO WEAN HER OXYGEN DOWN TODAY. WE WILL DISCUSS WITH CASE MANAGEMENT THE POSSIBILITY OF TRANSFER TO AN LTAC FACILITY DUE TO HIGH OXYGEN DEMANDS. OTHERWISE, WE PLAN TO FOLLOW UP WITH AM LABS, CHEST XRAY, AND ABG AND CONTINUE TO MONITOR. - Past Medical Family Social History Past Med/Fam/Surg Hx: No changes since H&P Allergies: Allergies codeine Allergy (Verified 02/06/17 22:08) hydromorphone [From Dilaudid] Allergy (Verified 02/06/17 22:08) influenza virus vaccine qs 8723-4219 (36 mos, up) [From Single Use EZ Flu] Allergy (Verified 03/24/17 18:04) meperidine [From Demerol] Allergy (Verified 02/06/17 22:08) prednisone Allergy (Verified 02/06/17 22:08) - Review of Systems ROS: No change since H&P - Vital Signs and I&O's Vital Signs: Temperature 98.4 F Pulse Rate 81 Respiratory Rate 27 Blood Pressure [Left Arm] 120/56 Blood Pressure 152/67 O2 Sat by Pulse Oximetry 88 Intake and Output: Intake & Output 01/01/20 01/02/20 01/03/20 01/04/20 11:59 11:59 11:59 11:59 Intake Total 2739 / 2739 1945 / 1945 2410 / 2410 1183 / 1183 Output Total 3350 / 3350 1800 / 1800 1050 / 1050 1000 / 1000 Balance -611 / -611 145 / 145 1360 / 1360 183 / 183 - Physical Exam Oriented: Normal Eyes: Normal Ear: Normal Nose: Normal Throat: Normal Respiratory: Generalized, Diminished Cardiovascular: Normal : Normal Auscultation: Bowel Sounds: Normal Palpation: Normal Tenderness: Normal Skin: Normal Musculoskeletal: Normal Psychiatric: Normal Mood Description: Calm Affect: Normal Speech Pattern: Clear, Appropriate - Laboratory and Diagnostics Result Diagrams: 01/03/20 04:10 01/03/20 04:10 Labs: 12/17/19 15:03 Blood Blood Culture - Final 12/17/19 15:00 Blood Blood Culture - Final 12/17/19 16:30 Sputum - Expectorated Sputum Sputum Culture - Final Escherichia Coli Methicillin Resis Staph Aureus 12/17/19 16:30 Sputum - Expectorated Sputum - Final Laboratory WBC 9.9 X10^3/uL (3.6-10.0) 01/03/20 04:10 RBC 2.86 X10^6/uL (3.5-5.4) L 01/03/20 04:10 Hgb 8.7 g/dL (12.0-16.0) L 01/03/20 04:10 Hct 26.5 % (36.0-47.0) L 01/03/20 04:10 MCV 92.7 fL (80.0-100.0) 01/03/20 04:10 MCH 30.4 pg (27.0-34.0) 01/03/20 04:10 MCHC 32.8 g/dL (33.0-35.0) L 01/03/20 04:10 RDW 14.6 % (11.6-16.5) 01/03/20 04:10 Plt Count 140 X10^3/uL (150.0-450.0) L 01/03/20 04:10 Plt Count Comment Adequate (ADEQUATE) 01/03/20 04:10 MPV 7.8 fL (7.4-11.0) 01/03/20 04:10 Neut % (Auto) 92.2 % (42.0-75.0) H 01/03/20 04:10 Lymph % (Auto) 3.2 % (21.0-51.0) L 01/03/20 04:10 [place] % (Auto) 4.5 % (0.0-13.0) 01/03/20 04:10 Eos % (Auto) 0.0 % (0.9-2.9) L 01/03/20 04:10 Baso % (Auto) 0.1 % (0.2-1.0) L 01/03/20 04:10 Neut # (Auto) 9.1 x10^3/uL (2.2-4.8) H 01/03/20 04:10 Lymph # (Auto) 0.3 X10^3/uL (1.3-2.9) L 01/03/20 04:10 [place] # (Auto) 0.4 x10^3/uL (0.3-0.8) 01/03/20 04:10 Eos # (Auto) 0.0 x10^3/uL (0.0-0.2) 01/03/20 04:10 Baso # (Auto) 0.0 X10^3/uL (0.0-0.1) 01/03/20 04:10 Absolute Nucleated RBC 0.0 /100WBC 01/03/20 04:10 Total Counted 100 01/03/20 04:10 Neutrophils % (Manual) 92 % (39-76) H 01/03/20 04:10 Band Neutrophils % 2 % (0-10) 12/30/19 04:40 Lymphocytes % (Manual) 5 % (13-43) L 01/03/20 04:10 Monocytes % (Manual) 3 % (4-9) L 01/03/20 04:10 Plt Morphology Comment Normal (NORMAL) 01/03/20 04:10 RBC Morphology Abnormal (NORMAL) A 01/03/20 04:10 Hypochromasia Slight A 01/03/20 04:10 PT 14.2 SECONDS (11.8-14.3) 01/01/20 11:52 INR Target Range - 01/01/20 11:52 INR 1.13 (0.8-1.3) 01/01/20 11:52 APTT 20.0 SECONDS (22.9-36.5) L 01/01/20 11:52 PTT Comment - 01/01/20 11:52 Sample Site Lr 01/03/20 04:13 ABG pH 7.360 (7.35-7.45) 01/03/20 04:13 ABG pCO2 82.0 mmHg (35.0-45.0) H* 01/03/20 04:13 ABG pO2 53.0 mmHg (80.0-100.0) L 01/03/20 04:13 ABG HCO3 46.3 mmol/L (22-26) H* 01/03/20 04:13 ABG O2 Saturation 86.0 % (90-100) L 01/03/20 04:13 ABG Base Excess 16.9 mmol/L (-2.0-2.0) H 01/03/20 04:13 [place]iston Test Pos 01/03/20 04:13 A-a Gradient 408.0 mmHg 01/03/20 04:13 FiO2 79.0 01/03/20 04:13 Blood Gas Comments Quinten well ae 01/03/20 04:13 Sodium 140 mmol/L (136-145) 01/03/20 04:10 Corrected Sodium 141 mmol/L (136-145) 01/03/20 04:10 Potassium 5.0 mmol/L (3.5-5.1) 01/03/20 04:10 Chloride 102 mmol/L (98-107) 01/03/20 04:10 Carbon Dioxide 39.7 mmol/L (21-32) H 01/03/20 04:10 BUN 24 mg/dL (7-18) H 01/03/20 04:10 Creatinine 0.68 mg/dL (0.55-1.02) 01/03/20 04:10 Est GFR (MDRD) Af Amer > 60 (>60) 01/03/20 04:10 Est GFR (MDRD) Non-Af > 60 (>60) 01/03/20 04:10 Glucose 158 mg/dL (65-99) H 01/03/20 04:10 Calcium 8.3 mg/dL (8.5-10.1) L 01/03/20 04:10 Corrected Calcium TNP 01/03/20 04:10 Ferritin 197 ng/mL (8-252) 01/03/20 04:10 Total Bilirubin 0.50 mg/dL (0.2-1.0) 01/03/20 04:10 AST 35 Units/L (15-37) 01/03/20 04:10 ALT 63 Units/L (12-78) 01/03/20 04:10 Alkaline Phosphatase 75 Units/L (46-116) 01/03/20 04:10 C-Reactive Protein < 0.50 mg/L (0-3.0) 01/03/20 04:10 Total Protein 5.4 g/dL (6.4-8.2) L 01/03/20 04:10 Albumin 3.5 g/dL (3.4-5.0) 01/03/20 04:10 Globulin 1.9 g/dL (2.5-4.5) L 01/03/20 04:10 Albumin/Globulin Ratio 1.8 Ratio (1.1-2.1) 01/03/20 04:10 Specimen Type Catherized urine 12/18/19 11:45 Urine Color Pale yellow (YELLOW) 12/18/19 11:45 Urine Appearance Clear (CLEAR) 12/18/19 11:45 Urine pH 6.0 (5.0 - 8.0) 12/18/19 11:45 Ur Specific [place] 1.015 (1.000-1.030) 12/18/19 11:45 Urine Protein 3+ (NEGATIVE) 12/18/19 11:45 Urine Glucose (UA) Negative (NEGATIVE) 12/18/19 11:45 Urine Ketones 3+ (NEGATIVE) 12/18/19 11:45 Urine Occult Blood 2+ (NEGATIVE) 12/18/19 11:45 Urine Nitrite Negative (NEGATIVE) 12/18/19 11:45 Urine Bilirubin Negative (NEGATIVE) 12/18/19 11:45 Urine Urobilinogen Normal (NORMAL) 12/18/19 11:45 Ur Leukocyte Esterase Negative (NEGATIVE) 12/18/19 11:45 Urine RBC 0-2 /HPF (0-3) 12/18/19 11:45 Urine WBC None seen /HPF (0-5) 12/18/19 11:45 Ur Squamous Epith Cells Negative /HPF (NEGATIVE) 12/18/19 11:45 Amorphous Sediment Trace /HPF (NEGATIVE) 12/18/19 11:45 Urine Bacteria Negative /HPF (NEGATIVE) 12/18/19 11:45 Granular Casts Rare /LPF (NEGATIVE) 12/18/19 11:45 Urine Mucus Few /HPF (NEGATIVE) 12/18/19 11:45 Ur Culture Indicated? No/not indicated 12/18/19 11:45 Vancomycin Trough 20.5 ug/mL (15-20) H* 01/01/20 15:28 Random Vancomycin 19.5 ug/mL 01/03/20 09:14 Miscellaneous Test Covid 19 12/31/19 14:10 - Plan (1) COVID-19 Status: Acute Plan: 1/2NS AT 30 ML/HR, INVANZ 1G IV DAILY, VANCOMYCIN 750 MG IV Q12H, ZINC SULFATE 220MG PO DAILY, ROBITUSSIN DM 10ML PO QID, DUONEBS QID, PULMICORT NEBS BID, MUCOMYST IN [place], AND SOLU-MEDROL 80MG IV Q8H. (2) Pneumonia Status: Acute Qualifiers: Pneumonia type: due to methicillin-resistant Staphylococcus aureus (MRSA) Laterality: bilateral Lung location: lower lobe of lung Qualified Code(s): J15.212 - Pneumonia due to Methicillin resistant Staphylococcus aureus (3) Coronary artery disease Status: Chronic Qualifiers: Coronary Disease-Associated Artery/Lesion type: [place] artery [place] vs. transplanted heart: minto heart Associated angina: with stable angina Qualified Code(s): I25.118 - Atherosclerotic heart disease of minto coronary artery with other forms of angina pectoris (4) Dyslipidemia Status: Chronic (5) GERD (gastroesophageal reflux disease) Status: Chronic Qualifiers: Esophagitis presence: esophagitis presence not specified (6) COPD (chronic obstructive pulmonary disease) Status: Chronic Qualifiers: COPD type: chronic bronchitis Chronic bronchitis type: mucopurulent Qualified Code(s): J41.1 - Mucopurulent chronic bronchitis (7) HTN (hypertension) Status: Chronic Qualifiers: Hypertension type: essential hypertension Qualified Code(s): I10 - Essential (primary) hypertension
[2020-01-03] MEDS: MUCINEX EXPECTORANT PO SCH (22:14)
[2020-01-03] MEDS: KLONOPIN TAB 1 MG PO SCH (22:16)
[2020-01-03] MEDS: XARELTO PO SCH (22:19)
[2020-01-03] MEDS: CRESTOR TAB 10 MG PO SCH (22:47)
[2020-01-04 04:10] LABS: ABG BASE EXCESS 18.2 mmol/L (-2.0-2.0)
[2020-01-04 04:11] LABS: ABG HCO3 47.3 mmol/L (22-26)
[2020-01-04 04:12] LABS: ABG ALLEN TEST POS
[2020-01-04 04:57] LABS: BASOPHILS % (AUTO) 0.3 % (0.2-1.0); EOSINOPHILS % (AUTO) 0.3 % (0.9-2.9); HEMATOCRIT 27.2 % (36.0-47.0); HEMOGLOBIN 8.7 g/dL (12.0-16.0); LYMPHOCYTES # (AUTO) 0.3 X10^3/uL (1.3-2.9); LYMPHOCYTES % (AUTO) 2.3 % (21.0-51.0); MEAN CORPUSCULAR HEMOGLOBIN 29.7 pg (27.0-34.0); MEAN CORPUSCULAR HGB CONC 31.8 g/dL (33.0-35.0); MEAN CORPUSCULAR VOLUME 93.3 fL (80.0-100.0); MEAN PLATELET VOLUME 7.8 fL (7.4-11.0); MONOCYTES # (AUTO) 0.3 x10^3/uL (0.3-0.8); MONOCYTES % (AUTO) 2.4 % (0.0-13.0); NEUTROPHILS # (AUTO) 12.6 x10^3/uL (2.2-4.8); NEUTROPHILS % (AUTO) 94.7 % (42.0-75.0); PLATELET COUNT 135 X10^3/uL (150.0-450.0); RED BLOOD COUNT 2.92 X10^6/uL (3.5-5.4); WHITE BLOOD COUNT 13.3 X10^3/uL (3.6-10.0)
[2020-01-04 05:04] LABS: ALANINE AMINOTRANSFERASE 52 Units/L (12-78); ALBUMIN 3.7 g/dL (3.4-5.0); ALKALINE PHOSPHATASE 67 Units/L (46-116); ASPARTATE AMINO TRANSFERASE 22 Units/L (15-37); BLOOD UREA NITROGEN 22 mg/dL (7-18); CALCIUM 8.4 mg/dL (8.5-10.1); CHLORIDE 101 mmol/L (98-107); COR NA(FOR HYPERGLY) 139 mmol/L (136-145); CREATININE 0.67 mg/dL (0.55-1.02); SODIUM 138 mmol/L (136-145); TOTAL PROTEIN 5.6 g/dL (6.4-8.2); eGFR NON BLACK RACES > 60 (>60)
[2020-01-04 05:16] LABS: CARBON DIOXIDE 40.2 mmol/L (21-32)
--- NOTE | 2020-01-04 06:04 | RAD ---
HISTORYSOBSTUDYCHEST, 1 [id number] view of the chestFINDINGSCardiac silhouette is stably enlarged. Mild improvement in diffuse bilateral airspace disease. No pneumothorax.IMPRESSIONMildly improved diffuse bilateral airspace disease.Electronically signed by: Orlando Garcia (Jan 04, 2020 06:03:45)
[2020-01-04 06:07] LABS: BAND NEUTROPHILS % 1 % (0-10); HYPOCHROMASIA SLIGHT; PLATELET MORPHOLOGY COMMENT NORMAL (NORMAL)
[2020-01-04] MEDS: NEURONTIN CAP 300 MG PO SCH ×4 (06:28→21:20)
[2020-01-04] MEDS: SOLU-Medrol 40 MG VIAL IVP SCH ×3 (06:28→21:21)
[2020-01-04] MEDS: NORCO 7.5/325 MG TAB PO SCH ×4 (06:29→21:21)
[2020-01-04] MEDS: DUONEB 0.5 MG/3 MG (3 mL) NEB SCH ×4 (08:30→20:35)
[2020-01-04] MEDS: MUCOMYST (RESPIRATORY USE ONLY) NEB SCH ×2 (08:30→20:35)
[2020-01-04] MEDS: PULMICORT NEB TX 0.5 MG NEB SCH ×2 (08:30→20:35)
[2020-01-04] MEDS: CITRACAL + VITAMIN D PO SCH ×2 (09:31→21:18)
[2020-01-04] MEDS: CELEBREX PO SCH (09:31)
[2020-01-04] MEDS: NexIUM PO SCH (09:32)
[2020-01-04] MEDS: CLARITIN PO SCH (09:32)
[2020-01-04] MEDS: ROBITUSSIN DM PO SCH ×4 (09:32→21:20)
[2020-01-04] MEDS: VITAMIN D3 125 mcg (5,000 UNITS) PO SCH (09:33)
[2020-01-04] MEDS: COLACE CAP 100 MG PO SCH ×2 (09:33→21:18)
[2020-01-04] MEDS: ZINC SULFATE PO SCH (09:33)
[2020-01-04] MEDS: VSL#3 PO SCH (09:34)
[2020-01-04] MEDS: VANCOMYCIN HCL 750 MG VIAL 750 MG in D5W 250 ML IV 250 ML IV SCH ×2 (09:34→21:20)
[2020-01-04] MEDS: VITAMIN C PO SCH (09:34)
[2020-01-04] MEDS: COREG TAB 12.5 MG PO SCH ×2 (09:35→21:18)
[2020-01-04] MEDS: FERROUS GLUCONATE PO SCH (09:35)
[2020-01-04] MEDS: FOLIC ACID TAB 1 MG PO SCH (09:36)
[2020-01-04] MEDS: POTASSIUM CHLORIDE LIQ 20 MEQ UDC PO SCH (09:37)
[2020-01-04] MEDS: INVANZ INJ 1 GM VIAL 1 GM in NS 100 ML IV + SPIKE MINIBAG* 100 ML IV SCH (09:37)
[2020-01-04] MEDS: SINGULAIR TAB 10 MG PO SCH (09:38)
[2020-01-04] MEDS: TAB-A-VITE PO SCH (09:38)
[2020-01-04] MEDS: PROzac PO SCH (09:38)
[2020-01-04] MEDS: NS 1/2 1000 ML IV 1,000 ML IV SCH ×2 (09:39→18:06)
[2020-01-04] MEDS: ALBUMIN HUMAN 25%- 100 ML 100 ML IV SCH (11:35)
--- NOTE | 2020-01-04 12:44 | PCM.PROG ---
Progress Note - Progress Note for Day of Date of Exam: 01/02/20 - Subjective Subjective: IS BEING TREATED FOR PNEUMONIA DUE TO COVID-19 AND HYPOXIA. TODAY, SHE IS ALERT AND ORIENTED, LYING IN BED ON MORNING ROUNDS. SHE IS CURRENTLY UTILIZING HEATED HIGH FLOW OXYGEN. SHE CONTINUES WITH SHORTNESS OF BREATH AND WEAKNESS. SHORTNESS OF BREATH IS WORSE ON EXERTION. SHE DENIES SIGNIFICANT IMPROVEMENT SINCE YESTERDAY. RESPIRATORY WAS HAS BEEN ATTEMPTING TO WEAN DOWN HER OXYGEN, HOWEVER, OXYGEN SATURATIONS CONTINUE TO FALL TO THE LOWER 80s WHEN OXYGEN IS DECREASED. ON EXAMINATION, HEART IS REGULAR IN RATE AND RHYTHM. BILATERAL LUNGS ARE NOTED WITH DIMINISHED LUNG SOUNDS THROUGHOUT. ABDOMEN IS ROUND, SOFT, AND NON-TENDER WITH NORMAL BOWEL SOUNDS NOTED IN ALL QUADRANTS. HER VITALS THIS MORNING ARE: 97.6-79-19-88%HHF-161/72. LABS WERE OBTAINED. ABNORMAL LAB VALUES INCLUDE THE FOLLOWING: WBC 10.4, RBC 2.92, HGB 8.9, HCT 26.8, CARBON DIOXIDE 39.7, BUN 24, GLUCOSE 138, CALCIUM 8.4, TOTAL PROTEIN 5.2, ALBUMIN 3.3. AN ABG WAS REPEATED THIS MORNING AND REVEALED: PH 7.360, pc02 87, p02 67, hc03 49.1, 02 sat 92, base excess 19.2, fi02 95. A CHEST XRAY WAS OBTAINED AND REVEALED: Stable multifocal airspace disease. SHE IS CURRENTLY RECEIVING 1/2NS AT 30 ML/HR, ALBUMIN 25% IV DAILY, INVANZ 1G IV DAILY, VANCOMYCIN 750G IV Q12H, ZINC SULFATE 220MG PO DAILY, ROBITUSSIN DM 10ML PO QID, DUONEBS QID, PULMICORT NEBS BID, MUCOMYST IN NEB [place], AND SOLU-MEDROL 80MG IV Q8H, AND HER HOME MEDICATIONS WERE RESUMED. WE WILL CONTINUE TO ATTEMPT TO WEAN HER OXYGEN DOWN TODAY. WE WILL DISCUSS WITH CASE MANAGEMENT THE POSSIBILITY OF TRANSFER TO AN LTAC FACILITY DUE TO HIGH OXYGEN DEMANDS. OTHERWISE, WE PLAN TO FOLLOW UP WITH AM LABS, CHEST XRAY, AND ABG AND CONTINUE TO MONITOR. - Past Medical Family Social History Past Med/Fam/Surg Hx: No changes since H&P Allergies: Allergies codeine Allergy (Verified 02/06/17 22:08) hydromorphone [From Dilaudid] Allergy (Verified 02/06/17 22:08) influenza virus vaccine qs 3189-0261 (36 mos, up) [From Single Use EZ Flu] Allergy (Verified 03/24/17 18:04) meperidine [From Demerol] Allergy (Verified 02/06/17 22:08) prednisone Allergy (Verified 02/06/17 22:08) - Review of Systems ROS: No change since H&P - Vital Signs and I&O's Vital Signs: Temperature 98.2 F Pulse Rate 81 Respiratory Rate 26 Blood Pressure [Left Arm] 120/56 Blood Pressure 157/83 O2 Sat by Pulse Oximetry 88 Intake and Output: Intake & Output 01/02/20 01/03/20 01/04/20 01/05/20 11:59 11:59 11:59 11:59 Intake Total 1945 / 1945 2410 / 2410 2163 / 2163 Output Total 1800 / 1800 1050 / 1050 1600 / 1600 Balance 145 / 145 1360 / 1360 563 / 563 - Physical Exam Oriented: Normal Eyes: Normal Ear: Normal Nose: Normal Throat: Normal Respiratory: Generalized, Diminished Cardiovascular: Normal : Normal Auscultation: Bowel Sounds: Normal Palpation: Normal Tenderness: Normal Skin: Normal Musculoskeletal: Normal Psychiatric: Normal Mood Description: Calm Affect: Normal Speech Pattern: Clear, Appropriate - Laboratory and Diagnostics Result Diagrams: 01/04/20 04:11 01/04/20 04:11 Labs: 12/17/19 15:03 Blood Blood Culture - Final 12/17/19 15:00 Blood Blood Culture - Final 12/17/19 16:30 Sputum - Expectorated Sputum Sputum Culture - Final Escherichia Coli Methicillin Resis Staph Aureus 12/17/19 16:30 Sputum - Expectorated Sputum - Final Laboratory WBC 13.3 X10^3/uL (3.6-10.0) H 01/04/20 04:11 RBC 2.92 X10^6/uL (3.5-5.4) L 01/04/20 04:11 Hgb 8.7 g/dL (12.0-16.0) L 01/04/20 04:11 Hct 27.2 % (36.0-47.0) L 01/04/20 04:11 MCV 93.3 fL (80.0-100.0) 01/04/20 04:11 MCH 29.7 pg (27.0-34.0) 01/04/20 04:11 MCHC 31.8 g/dL (33.0-35.0) L 01/04/20 04:11 RDW 15.0 % (11.6-16.5) 01/04/20 04:11 Plt Count 135 X10^3/uL (150.0-450.0) L 01/04/20 04:11 Plt Count Comment Adequate (ADEQUATE) 01/04/20 04:11 MPV 7.8 fL (7.4-11.0) 01/04/20 04:11 Neut % (Auto) 94.7 % (42.0-75.0) H 01/04/20 04:11 Lymph % (Auto) 2.3 % (21.0-51.0) L 01/04/20 04:11 [place] % (Auto) 2.4 % (0.0-13.0) 01/04/20 04:11 Eos % (Auto) 0.3 % (0.9-2.9) L 01/04/20 04:11 Baso % (Auto) 0.3 % (0.2-1.0) 01/04/20 04:11 Neut # (Auto) 12.6 x10^3/uL (2.2-4.8) H 01/04/20 04:11 Lymph # (Auto) 0.3 X10^3/uL (1.3-2.9) L 01/04/20 04:11 [place] # (Auto) 0.3 x10^3/uL (0.3-0.8) 01/04/20 04:11 Eos # (Auto) 0.0 x10^3/uL (0.0-0.2) 01/04/20 04:11 Baso # (Auto) 0.0 X10^3/uL (0.0-0.1) 01/04/20 04:11 Absolute Nucleated RBC 0.0 /100WBC 01/04/20 04:11 Total Counted 100 01/04/20 04:11 Neutrophils % (Manual) 93 % (39-76) H 01/04/20 04:11 Band Neutrophils % 1 % (0-10) 01/04/20 04:11 Lymphocytes % (Manual) 4 % (13-43) L 01/04/20 04:11 Monocytes % (Manual) 2 % (4-9) L 01/04/20 04:11 Plt Morphology Comment Normal (NORMAL) 01/04/20 04:11 RBC Morphology Abnormal (NORMAL) A 01/04/20 04:11 Hypochromasia Slight A 01/04/20 04:11 PT 14.2 SECONDS (11.8-14.3) 01/01/20 11:52 INR Target Range - 01/01/20 11:52 INR 1.13 (0.8-1.3) 01/01/20 11:52 APTT 20.0 SECONDS (22.9-36.5) L 01/01/20 11:52 PTT Comment - 01/01/20 11:52 Sample Site Lr 01/04/20 05:00 ABG pH 7.380 (7.35-7.45) 01/04/20 05:00 ABG pCO2 80.0 mmHg (35.0-45.0) H* 01/04/20 05:00 ABG pO2 57.0 mmHg (80.0-100.0) L 01/04/20 05:00 ABG HCO3 47.3 mmol/L (22-26) H* 01/04/20 05:00 ABG O2 Saturation 89.0 % (90-100) L 01/04/20 05:00 ABG Base Excess 18.2 mmol/L (-2.0-2.0) H 01/04/20 05:00 Triston Test Pos 01/04/20 05:00 A-a Gradient 378.0 mmHg 01/04/20 05:00 FiO2 75.0 01/04/20 05:00 Blood Gas Comments Quinten well ae 01/04/20 05:00 Sodium 138 mmol/L (136-145) 01/04/20 04:11 Corrected Sodium 139 mmol/L (136-145) 01/04/20 04:11 Potassium 5.3 mmol/L (3.5-5.1) H 01/04/20 04:11 Chloride 101 mmol/L (98-107) 01/04/20 04:11 Carbon Dioxide 40.2 mmol/L (21-32) H* 01/04/20 04:11 BUN 22 mg/dL (7-18) H 01/04/20 04:11 Creatinine 0.67 mg/dL (0.55-1.02) 01/04/20 04:11 Est GFR (MDRD) Af Amer > 60 (>60) 01/04/20 04:11 Est GFR (MDRD) Non-Af > 60 (>60) 01/04/20 04:11 Glucose 138 mg/dL (65-99) H 01/04/20 04:11 Calcium 8.4 mg/dL (8.5-10.1) L 01/04/20 04:11 Corrected Calcium TNP 01/04/20 04:11 Ferritin 175 ng/mL (8-252) 01/04/20 04:11 Total Bilirubin 0.60 mg/dL (0.2-1.0) 01/04/20 04:11 AST 22 Units/L (15-37) 01/04/20 04:11 ALT 52 Units/L (12-78) 01/04/20 04:11 Alkaline Phosphatase 67 Units/L (46-116) 01/04/20 04:11 C-Reactive Protein < 0.50 mg/L (0-3.0) 01/04/20 04:11 Total Protein 5.6 g/dL (6.4-8.2) L 01/04/20 04:11 Albumin 3.7 g/dL (3.4-5.0) 01/04/20 04:11 Globulin 1.9 g/dL (2.5-4.5) L 01/04/20 04:11 Albumin/Globulin Ratio 1.9 Ratio (1.1-2.1) 01/04/20 04:11 Specimen Type Catherized urine 12/18/19 11:45 Urine Color Pale yellow (YELLOW) 12/18/19 11:45 Urine Appearance Clear (CLEAR) 12/18/19 11:45 Urine pH 6.0 (5.0 - 8.0) 12/18/19 11:45 Ur Specific [place] 1.015 (1.000-1.030) 12/18/19 11:45 Urine Protein 3+ (NEGATIVE) 12/18/19 11:45 Urine Glucose (UA) Negative (NEGATIVE) 12/18/19 11:45 Urine Ketones 3+ (NEGATIVE) 12/18/19 11:45 Urine Occult Blood 2+ (NEGATIVE) 12/18/19 11:45 Urine Nitrite Negative (NEGATIVE) 12/18/19 11:45 Urine Bilirubin Negative (NEGATIVE) 12/18/19 11:45 Urine Urobilinogen Normal (NORMAL) 12/18/19 11:45 Ur Leukocyte Esterase Negative (NEGATIVE) 12/18/19 11:45 Urine RBC 0-2 /HPF (0-3) 12/18/19 11:45 Urine WBC None seen /HPF (0-5) 12/18/19 11:45 Ur Squamous Epith Cells Negative /HPF (NEGATIVE) 12/18/19 11:45 Amorphous Sediment Trace /HPF (NEGATIVE) 12/18/19 11:45 Urine Bacteria Negative /HPF (NEGATIVE) 12/18/19 11:45 Granular Casts Rare /LPF (NEGATIVE) 12/18/19 11:45 Urine Mucus Few /HPF (NEGATIVE) 12/18/19 11:45 Ur Culture Indicated? No/not indicated 12/18/19 11:45 Vancomycin Trough 20.5 ug/mL (15-20) H* 01/01/20 15:28 Random Vancomycin 19.5 ug/mL 01/03/20 09:14 Miscellaneous Test Covid 19 12/31/19 14:10 Blood Type O POSITIVE 01/04/20 09:01 - Plan (1) COVID-19 Status: Acute Plan: 1/2NS AT 30 ML/HR, INVANZ 1G IV DAILY, VANCOMYCIN 750 MG IV Q12H, ZINC SULFATE 220MG PO DAILY, ROBITUSSIN DM 10ML PO QID, DUONEBS QID, PULMICORT NEBS BID, MUCOMYST IN NEB [place], AND SOLU-MEDROL 80MG IV Q8H. (2) Pneumonia Status: Acute Qualifiers: Pneumonia type: due to methicillin-resistant Staphylococcus aureus (MRSA) Laterality: bilateral Lung location: lower lobe of lung Qualified Code(s): J15.212 - Pneumonia due to Methicillin resistant Staphylococcus aureus (3) Coronary artery disease Status: Chronic Qualifiers: Coronary Disease-Associated Artery/Lesion type: [place] artery [place] vs. transplanted heart: [place] heart Associated angina: with stable angina Qualified Code(s): I25.118 - Atherosclerotic heart disease of [place] coronary artery with other forms of angina pectoris (4) Dyslipidemia Status: Chronic (5) GERD (gastroesophageal reflux disease) Status: Chronic Qualifiers: Esophagitis presence: esophagitis presence not specified (6) COPD (chronic obstructive pulmonary disease) Status: Chronic Qualifiers: COPD type: chronic bronchitis Chronic bronchitis type: mucopurulent Qualified Code(s): J41.1 - Mucopurulent chronic bronchitis (7) HTN (hypertension) Status: Chronic Qualifiers: Hypertension type: essential hypertension Qualified Code(s): I10 - Essential (primary) hypertension
--- NOTE | 2020-01-04 12:57 | PCM.PROG ---
Progress Note - Progress Note for Day of Date of Exam: 01/03/20 - Subjective Subjective: IS BEING TREATED FOR PNEUMONIA DUE TO COVID-19 AND HYPOXIA. TODAY, SHE IS ALERT AND ORIENTED, LYING IN BED ON MORNING ROUNDS. SHE IS CURRENTLY UTILIZING HEATED HIGH FLOW OXYGEN. SHE CONTINUES WITH SHORTNESS OF BREATH AND WEAKNESS. SHE DOES REPORT SLIGHT IMPROVEMENT IN SYMPTOMS SINCE YESTERDAY. RESPIRATORY THERAPY WAS ABLE TO WEAK OXYGEN DOWN THROUGHOUT THE NIGHT AND SHE IS TOLERATING WELL. ON EXAMINATION, HEART IS REGULAR IN RATE AND RHYTHM. BILATERAL LUNGS ARE NOTED WITH DIMINISHED LUNG SOUNDS THROUGHOUT. ABDOMEN IS ROUND, SOFT, AND NON-TENDER WITH NORMAL BOWEL SOUNDS NOTED IN ALL QUADRANTS. HER VITALS THIS MORNING ARE: 98.4-85-24-88%HHF-170/71. LABS WERE OBTAINED. ABNORMAL LAB VALUES INCLUDE THE FOLLOWING: RBC 2.86, HGB 8.7, HCT 26.5, PLT COUNT 140, CARBON DIOXIDE 39.7, BUN 24, GLUCOSE 158, CALCIUM 8.3, TOTAL PROTEIN 5.4. AN ABG WAS REPEATED THIS MORNING AND REVEALED: PH 7.360, PC02 82, P02 53, HC03 46.3, 02 SAT 86, BASE EXCESS 16.9, FI02 79. A CHEST XRAY WAS OBTAINED AND REVEALED: Stable diffuse bilateral airspace disease. SHE IS CURRENTLY RECEIVING 1/2NS AT 30 ML/HR, ALBUMIN 25% IV DAILY, INVANZ 1G IV DAILY, VANCOMYCIN 750G IV Q12H, ZINC SULFATE 220MG PO DAILY, ROBITUSSIN DM 10ML PO QID, DUONEBS QID, PULMICORT NEBS BID, MUCOMYST IN [facility] [place], AND SOLU-MEDROL 80MG IV Q8H, AND HER HOME MEDICATIONS WERE RESUMED. WE WILL CONTINUE TO ATTEMPT TO WEAN HER OXYGEN DOWN TODAY. CASE MANAGEMENT WILL CONTACT LTAC TODAY TO CHECK FOR BED AVAILABILITY. WE WILL ORDER ONE UNIT OF CONVALESCENT PLASMA TO ADMINISTER WHEN AVAILABLE. OTHERWISE, WE PLAN TO FOLLOW UP WITH AM LABS, CHEST XRAY, AND ABG AND CONTINUE TO MONITOR. - Past Medical Family Social History Past Med/Fam/Surg Hx: No changes since H&P Allergies: Allergies codeine Allergy (Verified 02/06/17 22:08) hydromorphone [From Dilaudid] Allergy (Verified 02/06/17 22:08) influenza virus vaccine qs 2980-4069 (36 mos, up) [From Single Use EZ Flu] Al lergy (Verified 03/24/17 18:04) meperidine [From Demerol] Allergy (Verified 02/06/17 22:08) prednisone Allergy (Verified 02/06/17 22:08) - Review of Systems ROS: No change since H&P - Vital Signs and I&O's Vital Signs: Temperature 98.2 F Pulse Rate 81 Respiratory Rate 26 Blood Pressure [Left Arm] 120/56 Blood Pressure 157/83 O2 Sat by Pulse Oximetry 88 Intake and Output: Intake & Output 01/02/20 01/03/20 01/04/20 01/05/20 11:59 11:59 11:59 11:59 Intake Total 1945 / 1945 2410 / 2410 2163 / 2163 Output Total 1800 / 1800 1050 / 1050 1600 / 1600 Balance 145 / 145 1360 / 1360 563 / 563 - Physical Exam Oriented: Normal Eyes: Normal Ear: Normal Nose: Normal Throat: Normal Respiratory: Generalized, Diminished Cardiovascular: Normal : Normal Auscultation: Bowel Sounds: Normal Tenderness: Normal Skin: Normal Musculoskeletal: Normal Psychiatric: Normal Mood Description: Calm Affect: Normal Speech Pattern: Clear, Appropriate - Laboratory and Diagnostics Result Diagrams: 01/04/20 04:11 01/04/20 04:11 Labs: 12/17/19 15:03 Blood Blood Culture - Final 12/17/19 15:00 Blood Blood Culture - Final 12/17/19 16:30 Sputum - Expectorated Sputum Sputum Culture - Final Escherichia Coli Methicillin Resis Staph Aureus 12/17/19 16:30 Sputum - Expectorated Sputum - Final Laboratory WBC 13.3 X10^3/uL (3.6-10.0) H 01/04/20 04:11 RBC 2.92 X10^6/uL (3.5-5.4) L 01/04/20 04:11 Hgb 8.7 g/dL (12.0-16.0) L 01/04/20 04:11 Hct 27.2 % (36.0-47.0) L 01/04/20 04:11 MCV 93.3 fL (80.0-100.0) 01/04/20 04:11 MCH 29.7 pg (27.0-34.0) 01/04/20 04:11 MCHC 31.8 g/dL (33.0-35.0) L 01/04/20 04:11 RDW 15.0 % (11.6-16.5) 01/04/20 04:11 Plt Count 135 X10^3/uL (150.0-450.0) L 01/04/20 04:11 Plt Count Comment Adequate (ADEQUATE) 01/04/20 04:11 MPV 7.8 fL (7.4-11.0) 01/04/20 04:11 Neut % (Auto) 94.7 % (42.0-75.0) H 01/04/20 04:11 Lymph % (Auto) 2.3 % (21.0-51.0) L 01/04/20 04:11 Page % (Auto) 2.4 % (0.0-13.0) 01/04/20 04:11 Eos % (Auto) 0.3 % (0.9-2.9) L 01/04/20 04:11 Baso % (Auto) 0.3 % (0.2-1.0) 01/04/20 04:11 Neut # (Auto) 12.6 x10^3/uL (2.2-4.8) H 01/04/20 04:11 Lymph # (Auto) 0.3 X10^3/uL (1.3-2.9) L 01/04/20 04:11 Page # (Auto) 0.3 x10^3/uL (0.3-0.8) 01/04/20 04:11 Eos # (Auto) 0.0 x10^3/uL (0.0-0.2) 01/04/20 04:11 Baso # (Auto) 0.0 X10^3/uL (0.0-0.1) 01/04/20 04:11 Absolute Nucleated RBC 0.0 /100WBC 01/04/20 04:11 Total Counted 100 01/04/20 04:11 Neutrophils % (Manual) 93 % (39-76) H 01/04/20 04:11 Band Neutrophils % 1 % (0-10) 01/04/20 04:11 Lymphocytes % (Manual) 4 % (13-43) L 01/04/20 04:11 Monocytes % (Manual) 2 % (4-9) L 01/04/20 04:11 Plt Morphology Comment Normal (NORMAL) 01/04/20 04:11 RBC Morphology Abnormal (NORMAL) A 01/04/20 04:11 Hypochromasia Slight A 01/04/20 04:11 PT 14.2 SECONDS (11.8-14.3) 01/01/20 11:52 INR Target Range - 01/01/20 11:52 INR 1.13 (0.8-1.3) 01/01/20 11:52 APTT 20.0 SECONDS (22.9-36.5) L 01/01/20 11:52 PTT Comment - 01/01/20 11:52 Sample Site Lr 01/04/20 05:00 ABG pH 7.380 (7.35-7.45) 01/04/20 05:00 ABG pCO2 80.0 mmHg (35.0-45.0) H* 01/04/20 05:00 ABG pO2 57.0 mmHg (80.0-100.0) L 01/04/20 05:00 ABG HCO3 47.3 mmol/L (22-26) H* 01/04/20 05:00 ABG O2 Saturation 89.0 % (90-100) L 01/04/20 05:00 ABG Base Excess 18.2 mmol/L (-2.0-2.0) H 01/04/20 05:00 Triston Test Pos 01/04/20 05:00 A-a Gradient 378.0 mmHg 01/04/20 05:00 FiO2 75.0 01/04/20 05:00 Blood Gas Comments Quinten well ae 01/04/20 05:00 Sodium 138 mmol/L (136-145) 01/04/20 04:11 Corrected Sodium 139 mmol/L (136-145) 01/04/20 04:11 Potassium 5.3 mmol/L (3.5-5.1) H 01/04/20 04:11 Chloride 101 mmol/L (98-107) 01/04/20 04:11 Carbon Dioxide 40.2 mmol/L (21-32) H* 01/04/20 04:11 BUN 22 mg/dL (7-18) H 01/04/20 04:11 Creatinine 0.67 mg/dL (0.55-1.02) 01/04/20 04:11 Est GFR (MDRD) Af Amer > 60 (>60) 01/04/20 04:11 Est GFR (MDRD) Non-Af > 60 (>60) 01/04/20 04:11 Glucose 138 mg/dL (65-99) H 01/04/20 04:11 Calcium 8.4 mg/dL (8.5-10.1) L 01/04/20 04:11 Corrected Calcium TNP 01/04/20 04:11 Ferritin 175 ng/mL (8-252) 01/04/20 04:11 Total Bilirubin 0.60 mg/dL (0.2-1.0) 01/04/20 04:11 AST 22 Units/L (15-37) 01/04/20 04:11 ALT 52 Units/L (12-78) 01/04/20 04:11 Alkaline Phosphatase 67 Units/L (46-116) 01/04/20 04:11 C-Reactive Protein < 0.50 mg/L (0-3.0) 01/04/20 04:11 Total Protein 5.6 g/dL (6.4-8.2) L 01/04/20 04:11 Albumin 3.7 g/dL (3.4-5.0) 01/04/20 04:11 Globulin 1.9 g/dL (2.5-4.5) L 01/04/20 04:11 Albumin/Globulin Ratio 1.9 Ratio (1.1-2.1) 01/04/20 04:11 Specimen Type Catherized urine 12/18/19 11:45 Urine Color Pale yellow (YELLOW) 12/18/19 11:45 Urine Appearance Clear (CLEAR) 12/18/19 11:45 Urine pH 6.0 (5.0 - 8.0) 12/18/19 11:45 Ur Specific [place] 1.015 (1.000-1.030) 12/18/19 11:45 Urine Protein 3+ (NEGATIVE) 12/18/19 11:45 Urine Glucose (UA) Negative (NEGATIVE) 12/18/19 11:45 Urine Ketones 3+ (NEGATIVE) 12/18/19 11:45 Urine Occult Blood 2+ (NEGATIVE) 12/18/19 11:45 Urine Nitrite Negative (NEGATIVE) 12/18/19 11:45 Urine Bilirubin Negative (NEGATIVE) 12/18/19 11:45 Urine Urobilinogen Normal (NORMAL) 12/18/19 11:45 Ur Leukocyte Esterase Negative (NEGATIVE) 12/18/19 11:45 Urine RBC 0-2 /HPF (0-3) 12/18/19 11:45 Urine WBC None seen /HPF (0-5) 12/18/19 11:45 Ur Squamous Epith Cells Negative /HPF (NEGATIVE) 12/18/19 11:45 Amorphous Sediment Trace /HPF (NEGATIVE) 12/18/19 11:45 Urine Bacteria Negative /HPF (NEGATIVE) 12/18/19 11:45 Granular Casts Rare /LPF (NEGATIVE) 12/18/19 11:45 Urine Mucus Few /HPF (NEGATIVE) 12/18/19 11:45 Ur Culture Indicated? No/not indicated 12/18/19 11:45 Vancomycin Trough 20.5 ug/mL (15-20) H* 01/01/20 15:28 Random Vancomycin 19.5 ug/mL 01/03/20 09:14 Miscellaneous Test Covid 19 12/31/19 14:10 Blood Type O POSITIVE 01/04/20 09:01 - Plan (1) COVID-19 Status: Acute Plan: 1/2NS AT 30 ML/HR, INVANZ 1G IV DAILY, VANCOMYCIN 750 MG IV Q12H, ZINC SULFATE 220MG PO DAILY, ROBITUSSIN DM 10ML PO QID, DUONEBS QID, PULMICORT NEBS BID, MUCOMYST IN [place]B [place], AND SOLU-MEDROL 80MG IV Q8H. (2) Pneumonia Status: Acute Qualifiers: Pneumonia type: due to methicillin-resistant Staphylococcus aureus (MRSA) Laterality: bilateral Lung location: lower lobe of lung Qualified Code(s): J15.212 - Pneumonia due to Methicillin resistant Staphylococcus aureus (3) Coronary artery disease Status: Chronic Qualifiers: Coronary Disease-Associated Artery/Lesion type: [place] artery [place] vs. transplanted heart: [place] heart Associated angina: with stable angina Qualified Code(s): I25.118 - Atherosclerotic heart disease of [place] coronary artery with other forms of angina pectoris (4) Dyslipidemia Status: Chronic (5) GERD (gastroesophageal reflux disease) Status: Chronic Qualifiers: Esophagitis presence: esophagitis presence not specified (6) COPD (chronic obstructive pulmonary disease) Status: Chronic Qualifiers: COPD type: chronic bronchitis Chronic bronchitis type: mucopurulent Qualified Code(s): J41.1 - Mucopurulent chronic bronchitis (7) HTN (hypertension) Status: Chronic Qualifiers: Hypertension type: essential hypertension Qualified Code(s): I10 - Essential (primary) hypertension
[2020-01-04] MEDS ORDERED: NS 1/2 1000 ML IV 1,000 ML IV ONE (17:30)
--- NOTE | 2020-01-04 21:15 | PCM.PROG ---
Progress Note - Progress Note for Day of Date of Exam: 01/04/20 - Subjective Subjective: IS BEING TREATED FOR PNEUMONIA DUE TO COVID-19 AND HYPOXIA. TODAY, SHE IS ALERT AND ORIENTED, LYING IN BED ON MORNING ROUNDS. SHE IS CURRENTLY UTILIZING HEATED HIGH FLOW OXYGEN. SHE CONTINUES WITH SHORTNESS OF BREATH AND WEAKNESS. SHE DENIES SIGNIFICANT IMPROVEMENT SINCE YESTERDAY. ON EXAMINATION, HEART IS REGULAR IN RATE AND RHYTHM. BILATERAL LUNGS ARE NOTED WITH DIMINISHED LUNG SOUNDS THROUGHOUT. ABDOMEN IS ROUND, SOFT, AND NON-TENDER WITH NORMAL BOWEL SOUNDS NOTED IN ALL QUADRANTS. HER VITALS THIS MORNING ARE: 98.2-81-26-88%-157/83. LABS WERE OBTAINED. ABNORMAL LAB VALUES INCLUDE THE FOLLOWING: WBC 13.3, RBC 2.92, HGB 8.7, HCT 27.2, PLT COUNT 135, CARBON DIOXIDE 40.2, BUN 22, GLUCOSE 138, CALCIUM 8.4, TOTAL PROTEIN 5.6. AN ABG WAS REPEATED THIS MORNING AND REVEALED: PH 7.380, PC02 80, P02 57, HC03 47.3, 02 SAT 89, FI02 75. A CHEST XRAY WAS OBTAINED AND REVEALED: Mildly improved diffuse bilateral airspace disease. SHE IS CURRENTLY RECEIVING 1/2NS AT 30 ML/HR, ALBUMIN 25% IV DAILY, INVANZ 1G IV DAILY, VANCOMYCIN 750G IV Q12H, ZINC SULFATE 220MG PO DAILY, ROBITUSSIN DM 10ML PO QID, DUONEBS QID, PULMICORT NEBS BID, MUCOMYST IN [facility] [place], AND SOLU-MEDROL 80MG IV Q8H, AND HER HOME MEDICATIONS WERE RESUMED. WE WILL CONTINUE TO ATTEMPT TO WEAN HER OXYGEN DOWN TODAY. WE WILL ORDER ONE UNIT OF CONVALESCENT PLASMA TO ADMINISTER WHEN AVAILABLE. OTHERWISE, WE PLAN TO FOLLOW UP WITH AM LABS, CHEST XRAY, AND ABG AND CONTINUE TO MONITOR. - Past Medical Family Social History Past Med/Fam/Surg Hx: No changes since H&P Allergies: Allergies codeine Allergy (Verified 02/06/17 22:08) hydromorphone [From Dilaudid] Allergy (Verified 02/06/17 22:08) influenza virus vaccine qs [id number] (36 mos, up) [From Single Use EZ Flu] Allergy (Verified 03/24/17 18:04) meperidine [From Demerol] Allergy (Verified 02/06/17 22:08) prednisone Allergy (Verified 02/06/17 22:08) - Review of Systems ROS: No change since H&P - Vital Signs and I&O's Vital Signs: Temperature 98.1 F Pulse Rate 75 Respiratory Rate 20 Blood Pressure [Left Arm] 120/56 Blood Pressure 142/63 O2 Sat by Pulse Oximetry 90 Intake and Output: Intake & Output 01/02/20 01/03/20 01/04/20 01/05/20 11:59 11:59 11:59 11:59 Intake Total 1945 / 1945 2410 / 2410 2163 / 2163 1360 / 1360 Output Total 1800 / 1800 1050 / 1050 2500 / 2500 650 / 650 Balance 145 / 145 1360 / 1360 -337 / -337 710 / 710 - Physical Exam Oriented: Normal Eyes: Normal Ear: Normal Nose: Normal Throat: Normal Respiratory: Generalized, Diminished Cardiovascular: Normal : Normal Auscultation: Bowel Sounds: Normal Tenderness: Normal Skin: Normal Musculoskeletal: Normal Psychiatric: Normal Mood Description: Calm Affect: Normal Speech Pattern: Clear, Appropriate - Laboratory and Diagnostics Result Diagrams: 01/04/20 04:11 01/04/20 04:11 Labs: 12/17/19 15:03 Blood Blood Culture - Final 12/17/19 15:00 Blood Blood Culture - Final 12/17/19 16:30 Sputum - Expectorated Sputum Sputum Culture - Final Escherichia Coli Methicillin Resis Staph Aureus 12/17/19 16:30 Sputum - Expectorated Sputum - Final Laboratory WBC 13.3 X10^3/uL (3.6-10.0) H 01/04/20 04:11 RBC 2.92 X10^6/uL (3.5-5.4) L 01/04/20 04:11 Hgb 8.7 g/dL (12.0-16.0) L 01/04/20 04:11 Hct 27.2 % (36.0-47.0) L 01/04/20 04:11 MCV 93.3 fL (80.0-100.0) 01/04/20 04:11 MCH 29.7 pg (27.0-34.0) 01/04/20 04:11 MCHC 31.8 g/dL (33.0-35.0) L 01/04/20 04:11 RDW 15.0 % (11.6-16.5) 01/04/20 04:11 Plt Count 135 X10^3/uL (150.0-450.0) L 01/04/20 04:11 Plt Count Comment Adequate (ADEQUATE) 01/04/20 04:11 MPV 7.8 fL (7.4-11.0) 01/04/20 04:11 Neut % (Auto) 94.7 % (42.0-75.0) H 01/04/20 04:11 Lymph % (Auto) 2.3 % (21.0-51.0) L 01/04/20 04:11 [place] % (Auto) 2.4 % (0.0-13.0) 01/04/20 04:11 Eos % (Auto) 0.3 % (0.9-2.9) L 01/04/20 04:11 Baso % (Auto) 0.3 % (0.2-1.0) 01/04/20 04:11 Neut # (Auto) 12.6 x10^3/uL (2.2-4.8) H 01/04/20 04:11 Lymph # (Auto) 0.3 X10^3/uL (1.3-2.9) L 01/04/20 04:11 [place] # (Auto) 0.3 x10^3/uL (0.3-0.8) 01/04/20 04:11 Eos # (Auto) 0.0 x10^3/uL (0.0-0.2) 01/04/20 04:11 Baso # (Auto) 0.0 X10^3/uL (0.0-0.1) 01/04/20 04:11 Absolute Nucleated RBC 0.0 /100WBC 01/04/20 04:11 Total Counted 100 01/04/20 04:11 Neutrophils % (Manual) 93 % (39-76) H 01/04/20 04:11 Band Neutrophils % 1 % (0-10) 01/04/20 04:11 Lymphocytes % (Manual) 4 % (13-43) L 01/04/20 04:11 Monocytes % (Manual) 2 % (4-9) L 01/04/20 04:11 Plt Morphology Comment Normal (NORMAL) 01/04/20 04:11 RBC Morphology Abnormal (NORMAL) A 01/04/20 04:11 Hypochromasia Slight A 01/04/20 04:11 PT 14.2 SECONDS (11.8-14.3) 01/01/20 11:52 INR Target Range - 01/01/20 11:52 INR 1.13 (0.8-1.3) 01/01/20 11:52 APTT 20.0 SECONDS (22.9-36.5) L 01/01/20 11:52 PTT Comment - 01/01/20 11:52 Sample Site Lr 01/04/20 05:00 ABG pH 7.380 (7.35-7.45) 01/04/20 05:00 ABG pCO2 80.0 mmHg (35.0-45.0) H* 01/04/20 05:00 ABG pO2 57.0 mmHg (80.0-100.0) L 01/04/20 05:00 ABG HCO3 47.3 mmol/L (22-26) H* 01/04/20 05:00 ABG O2 Saturation 89.0 % (90-100) L 01/04/20 05:00 ABG Base Excess 18.2 mmol/L (-2.0-2.0) H 01/04/20 05:00 [place] Test Pos 01/04/20 05:00 A-a Gradient 378.0 mmHg 01/04/20 05:00 FiO2 75.0 01/04/20 05:00 Blood Gas Comments Quinten well ae 01/04/20 05:00 Sodium 138 mmol/L (136-145) 01/04/20 04:11 Corrected Sodium 139 mmol/L (136-145) 01/04/20 04:11 Potassium 5.3 mmol/L (3.5-5.1) H 01/04/20 04:11 Chloride 101 mmol/L (98-107) 01/04/20 04:11 Carbon Dioxide 40.2 mmol/L (21-32) H* 01/04/20 04:11 BUN 22 mg/dL (7-18) H 01/04/20 04:11 Creatinine 0.67 mg/dL (0.55-1.02) 01/04/20 04:11 Est GFR (MDRD) Af Amer > 60 (>60) 01/04/20 04:11 Est GFR (MDRD) Non-Af > 60 (>60) 01/04/20 04:11 Glucose 138 mg/dL (65-99) H 01/04/20 04:11 Calcium 8.4 mg/dL (8.5-10.1) L 01/04/20 04:11 Corrected Calcium TNP 01/04/20 04:11 Ferritin 175 ng/mL (8-252) 01/04/20 04:11 Total Bilirubin 0.60 mg/dL (0.2-1.0) 01/04/20 04:11 AST 22 Units/L (15-37) 01/04/20 04:11 ALT 52 Units/L (12-78) 01/04/20 04:11 Alkaline Phosphatase 67 Units/L (46-116) 01/04/20 04:11 C-Reactive Protein < 0.50 mg/L (0-3.0) 01/04/20 04:11 Total Protein 5.6 g/dL (6.4-8.2) L 01/04/20 04:11 Albumin 3.7 g/dL (3.4-5.0) 01/04/20 04:11 Globulin 1.9 g/dL (2.5-4.5) L 01/04/20 04:11 Albumin/Globulin Ratio 1.9 Ratio (1.1-2.1) 01/04/20 04:11 Specimen Type Catherized urine 12/18/19 11:45 Urine Color Pale yellow (YELLOW) 12/18/19 11:45 Urine Appearance Clear (CLEAR) 12/18/19 11:45 Urine pH 6.0 (5.0 - 8.0) 12/18/19 11:45 Ur Specific [place] 1.015 (1.000-1.030) 12/18/19 11:45 Urine Protein 3+ (NEGATIVE) 12/18/19 11:45 Urine Glucose (UA) Negative (NEGATIVE) 12/18/19 11:45 Urine Ketones 3+ (NEGATIVE) 12/18/19 11:45 Urine Occult Blood 2+ (NEGATIVE) 12/18/19 11:45 Urine Nitrite Negative (NEGATIVE) 12/18/19 11:45 Urine Bilirubin Negative (NEGATIVE) 12/18/19 11:45 Urine Urobilinogen Normal (NORMAL) 12/18/19 11:45 Ur Leukocyte Esterase Negative (NEGATIVE) 12/18/19 11:45 Urine RBC 0-2 /HPF (0-3) 12/18/19 11:45 Urine WBC None seen /HPF (0-5) 12/18/19 11:45 Ur Squamous Epith Cells Negative /HPF (NEGATIVE) 12/18/19 11:45 Amorphous Sediment Trace /HPF (NEGATIVE) 12/18/19 11:45 Urine Bacteria Negative /HPF (NEGATIVE) 12/18/19 11:45 Granular Casts Rare /LPF (NEGATIVE) 12/18/19 11:45 Urine Mucus Few /HPF (NEGATIVE) 12/18/19 11:45 Ur Culture Indicated? No/not indicated 12/18/19 11:45 Vancomycin Trough 20.5 ug/mL (15-20) H* 01/01/20 15:28 Random Vancomycin 19.5 ug/mL 01/03/20 09:14 Miscellaneous Test Covid 19 12/31/19 14:10 Blood Type O POSITIVE 01/04/20 09:01 Antibody Screen Cancelled 01/04/20 09:01 - Plan (1) COVID-19 Status: Acute Plan: 1/2NS AT 30 ML/HR, INVANZ 1G IV DAILY, VANCOMYCIN 750 MG IV Q12H, ZINC SULFATE 220MG PO DAILY, ROBITUSSIN DM 10ML PO QID, DUONEBS QID, PULMICORT NEBS BID, MUCOMYST IN [place], AND SOLU-MEDROL 80MG IV Q8H. (2) Pneumonia Status: Acute Qualifiers: Pneumonia type: due to methicillin-resistant Staphylococcus aureus (MRSA) Laterality: bilateral Lung location: lower lobe of lung Qualified Code(s): J15.212 - Pneumonia due to Methicillin resistant Staphylococcus aureus (3) Coronary artery disease Status: Chronic Qualifiers: Coronary Disease-Associated Artery/Lesion type: [place] artery [place] vs. transplanted heart: [place] heart Associated angina: with stable angina Qualified Code(s): I25.118 - Atherosclerotic heart disease of [place] coronary artery with other forms of angina pectoris (4) Dyslipidemia Status: Chronic (5) GERD (gastroesophageal reflux disease) Status: Chronic Qualifiers: Esophagitis presence: esophagitis presence not specified (6) COPD (chronic obstructive pulmonary disease) Status: Chronic Qualifiers: COPD type: chronic bronchitis Chronic bronchitis type: mucopurulent Qualified Code(s): J41.1 - Mucopurulent chronic bronchitis (7) HTN (hypertension) Status: Chronic Qualifiers: Hypertension type: essential hypertension Qualified Code(s): I10 - Essential (primary) hypertension
[2020-01-04] MEDS: KLONOPIN TAB 1 MG PO SCH (21:19)
[2020-01-04] MEDS: CRESTOR TAB 10 MG PO SCH (21:19)
[2020-01-04] MEDS: MUCINEX EXPECTORANT PO SCH (21:19)
[2020-01-04] MEDS: XARELTO PO SCH (21:20)
[2020-01-05 04:59] LABS: BASOPHILS % (AUTO) 0.4 % (0.2-1.0); HEMATOCRIT 26.2 % (36.0-47.0); HEMOGLOBIN 8.4 g/dL (12.0-16.0); LYMPHOCYTES # (AUTO) 0.3 X10^3/uL (1.3-2.9); LYMPHOCYTES % (AUTO) 3.7 % (21.0-51.0); MEAN CORPUSCULAR HGB CONC 31.9 g/dL (33.0-35.0); MEAN CORPUSCULAR VOLUME 93.8 fL (80.0-100.0); MONOCYTES # (AUTO) 0.2 x10^3/uL (0.3-0.8); MONOCYTES % (AUTO) 3.2 % (0.0-13.0); NEUTROPHILS # (AUTO) 6.6 x10^3/uL (2.2-4.8); NEUTROPHILS % (AUTO) 92.7 % (42.0-75.0); PLATELET COUNT 116 X10^3/uL (150.0-450.0); RED CELL DISTRIBUTION WIDTH 15.2 % (11.6-16.5); WHITE BLOOD COUNT 7.1 X10^3/uL (3.6-10.0)
[2020-01-05 05:22] LABS: ALANINE AMINOTRANSFERASE 53 Units/L (12-78); ALBUMIN 3.7 g/dL (3.4-5.0); ALKALINE PHOSPHATASE 71 Units/L (46-116); ASPARTATE AMINO TRANSFERASE 27 Units/L (15-37); BLOOD UREA NITROGEN 22 mg/dL (7-18); CALCIUM 8.6 mg/dL (8.5-10.1); CARBON DIOXIDE 39.1 mmol/L (21-32); CHLORIDE 100 mmol/L (98-107); COR NA(FOR HYPERGLY) 140 mmol/L (136-145); CREATININE 0.64 mg/dL (0.55-1.02); SODIUM 139 mmol/L (136-145); TOTAL PROTEIN 5.6 g/dL (6.4-8.2); eGFR NON BLACK RACES > 60 (>60)
[2020-01-05] MEDS: SOLU-Medrol 40 MG VIAL IVP SCH ×3 (05:30→21:36)
[2020-01-05] MEDS: NORCO 7.5/325 MG TAB PO SCH ×3 (05:30→21:35)
[2020-01-05] MEDS: NEURONTIN CAP 300 MG PO SCH ×3 (05:30→21:35)
[2020-01-05 06:04] LABS: ANISOCYTOSIS SLIGHT; HYPOCHROMASIA SLIGHT; PLATELET MORPHOLOGY COMMENT NORMAL (NORMAL)
--- NOTE | 2020-01-05 06:12 | RAD ---
HISTORYSOBSTUDYCHEST, 1 [id number] silhouette is stable compared to prior exam. Bilateral pulmonary opacities/infiltrates, slightly worsened, particularly at the left lower lung zone. No pneu mothorax. Osseous structures are unchanged.IMPRESSIONWorsening bilateral pulmonary infiltrates/opacit ies, particularly at the left lung base.Electronically signed by: Clare Garcia (Jan 05, 2020 06:11:24 )
[2020-01-05 06:46] LABS: ABG BASE EXCESS 18.9 mmol/L (-2.0-2.0)
[2020-01-05 06:47] LABS: ABG ALLEN TEST POS; ABG HCO3 47.7 mmol/L (22-26)
[2020-01-05] MEDS: INVANZ INJ 1 GM VIAL 1 GM in NS 100 ML IV + SPIKE MINIBAG* 100 ML IV SCH (09:10)
[2020-01-05] MEDS: POTASSIUM CHLORIDE LIQ 20 MEQ UDC PO SCH (09:20)
[2020-01-05] MEDS: ZINC SULFATE PO SCH (09:21)
[2020-01-05] MEDS: ROBITUSSIN DM PO SCH ×4 (09:22→21:34)
[2020-01-05] MEDS: FERROUS GLUCONATE PO SCH (09:23)
[2020-01-05] MEDS: CELEBREX PO SCH (09:25)
[2020-01-05] MEDS: SINGULAIR TAB 10 MG PO SCH (09:26)
[2020-01-05] MEDS: COREG TAB 12.5 MG PO SCH ×2 (09:26→21:33)
[2020-01-05] MEDS: COLACE CAP 100 MG PO SCH ×2 (09:27→21:32)
[2020-01-05] MEDS: TAB-A-VITE PO SCH (09:27)
[2020-01-05] MEDS: PROzac PO SCH (09:28)
[2020-01-05] MEDS: NexIUM PO SCH (09:28)
[2020-01-05] MEDS: VITAMIN D3 125 mcg (5,000 UNITS) PO SCH (09:29)
[2020-01-05] MEDS: CITRACAL + VITAMIN D PO SCH ×2 (09:29→21:32)
[2020-01-05] MEDS: FOLIC ACID TAB 1 MG PO SCH (09:30)
[2020-01-05] MEDS: VITAMIN C PO SCH (09:30)
[2020-01-05] MEDS: CLARITIN PO SCH (09:30)
[2020-01-05] MEDS: MUCOMYST (RESPIRATORY USE ONLY) NEB SCH ×2 (09:45→20:45)
[2020-01-05] MEDS: PULMICORT NEB TX 0.5 MG NEB SCH ×2 (09:45→20:45)
[2020-01-05] MEDS: DUONEB 0.5 MG/3 MG (3 mL) NEB SCH ×4 (09:45→20:45)
[2020-01-05] MEDS: VANCOMYCIN HCL 750 MG VIAL 750 MG in D5W 250 ML IV 250 ML IV SCH ×2 (09:45→21:34)
[2020-01-05] MEDS: VSL#3 PO SCH (09:47)
[2020-01-05] MEDS: LASIX PO SCH (09:48)
[2020-01-05] MEDS: ALBUMIN HUMAN 25%- 100 ML 100 ML IV SCH (11:00)
[2020-01-05] MEDS: THEO-DUR TAB 200 MG 12-HR PO SCH ×2 (11:04→21:34)
[2020-01-05] MEDS: NS 1/2 1000 ML IV 1,000 ML IV SCH ×2 (13:54→21:36)
[2020-01-05] MEDS: KLONOPIN TAB 1 MG PO SCH (21:33)
[2020-01-05] MEDS: CRESTOR TAB 10 MG PO SCH (21:33)
[2020-01-05] MEDS: MUCINEX EXPECTORANT PO SCH (21:33)
[2020-01-05] MEDS: XARELTO PO SCH (21:34)
[2020-01-06 04:59] LABS: BASOPHILS # (AUTO) 0.1 X10^3/uL (0.0-0.1); BASOPHILS % (AUTO) 0.9 % (0.2-1.0); HEMATOCRIT 25.4 % (36.0-47.0); HEMOGLOBIN 8.3 g/dL (12.0-16.0); LYMPHOCYTES # (AUTO) 0.3 X10^3/uL (1.3-2.9); LYMPHOCYTES % (AUTO) 3.6 % (21.0-51.0); MEAN CORPUSCULAR HEMOGLOBIN 30.3 pg (27.0-34.0); MEAN CORPUSCULAR HGB CONC 32.5 g/dL (33.0-35.0); MEAN CORPUSCULAR VOLUME 93.1 fL (80.0-100.0); MEAN PLATELET VOLUME 7.7 fL (7.4-11.0); MONOCYTES # (AUTO) 0.4 x10^3/uL (0.3-0.8); MONOCYTES % (AUTO) 4.7 % (0.0-13.0); NEUTROPHILS # (AUTO) 6.8 x10^3/uL (2.2-4.8); NEUTROPHILS % (AUTO) 90.8 % (42.0-75.0); PLATELET COUNT 111 X10^3/uL (150.0-450.0); RED BLOOD COUNT 2.73 X10^6/uL (3.5-5.4); RED CELL DISTRIBUTION WIDTH 15.4 % (11.6-16.5); WHITE BLOOD COUNT 7.4 X10^3/uL (3.6-10.0)
[2020-01-06 05:16] LABS: ABG BASE EXCESS 20.7 mmol/L (-2.0-2.0)
[2020-01-06 05:18] LABS: ABG ALLEN TEST POS; ABG HCO3 49.1 mmol/L (22-26)
[2020-01-06 05:18] LABS: ALANINE AMINOTRANSFERASE 42 Units/L (12-78); ALBUMIN 3.8 g/dL (3.4-5.0); ALKALINE PHOSPHATASE 77 Units/L (46-116); ASPARTATE AMINO TRANSFERASE 17 Units/L (15-37); BLOOD UREA NITROGEN 23 mg/dL (7-18); CALCIUM 8.5 mg/dL (8.5-10.1); CARBON DIOXIDE 39.6 mmol/L (21-32); CHLORIDE 98 mmol/L (98-107); COR NA(FOR HYPERGLY) 140 mmol/L (136-145); CREATININE 0.62 mg/dL (0.55-1.02); SODIUM 139 mmol/L (136-145); TOTAL PROTEIN 5.6 g/dL (6.4-8.2); eGFR NON BLACK RACES > 60 (>60)
[2020-01-06 05:37] LABS: BAND NEUTROPHILS % 2 % (0-10); HYPOCHROMASIA 1+; PLATELET MORPHOLOGY COMMENT NORMAL (NORMAL)
--- NOTE | 2020-01-06 05:44 | RAD ---
HISTORYSOBSTUDYCHEST, 1 [id number] trachea is midline. The cardiac silhouette is not appreciably changed.. Slight interval increase in right basilar opacity/infiltrates.. The bony thorax stable.IMPRESSIONSlight increase in right basilar opacities/infiltrates.Electronically signed by: Clare Garcia (Jan 06, 2020 05:44:00)
[2020-01-06] MEDS: NEURONTIN CAP 300 MG PO SCH ×3 (06:18→21:30)
[2020-01-06] MEDS: NORCO 7.5/325 MG TAB PO SCH ×4 (06:18→21:30)
[2020-01-06] MEDS: SOLU-Medrol 40 MG VIAL IVP SCH ×3 (06:18→21:30)
[2020-01-06] MEDS: PULMICORT NEB TX 0.5 MG NEB SCH ×2 (08:30→21:45)
[2020-01-06] MEDS: MUCOMYST (RESPIRATORY USE ONLY) NEB SCH ×2 (08:30→21:45)
[2020-01-06] MEDS: DUONEB 0.5 MG/3 MG (3 mL) NEB SCH ×5 (08:30→21:45)
[2020-01-06] MEDS: FOLIC ACID TAB 1 MG PO SCH (10:10)
[2020-01-06] MEDS: NexIUM PO SCH (10:10)
[2020-01-06] MEDS: VANCOMYCIN HCL 750 MG VIAL 750 MG in D5W 250 ML IV 250 ML IV SCH (10:10)
[2020-01-06] MEDS: THEO-DUR TAB 200 MG 12-HR PO SCH ×2 (10:10→21:30)
[2020-01-06] MEDS: SINGULAIR TAB 10 MG PO SCH (10:10)
[2020-01-06] MEDS: VITAMIN C PO SCH (10:10)
[2020-01-06] MEDS: PROzac PO SCH (10:10)
[2020-01-06] MEDS: FERROUS GLUCONATE PO SCH (10:10)
[2020-01-06] MEDS: COREG TAB 12.5 MG PO SCH ×2 (10:10→21:30)
[2020-01-06] MEDS: COLACE CAP 100 MG PO SCH ×2 (10:10→21:30)
[2020-01-06] MEDS: CLARITIN PO SCH (10:10)
[2020-01-06] MEDS: VSL#3 PO SCH (10:10)
[2020-01-06] MEDS: CITRACAL + VITAMIN D PO SCH ×2 (10:10→21:30)
[2020-01-06] MEDS: ZINC SULFATE PO SCH (10:10)
[2020-01-06] MEDS: CELEBREX PO SCH (10:10)
[2020-01-06] MEDS: ROBITUSSIN DM PO SCH ×4 (10:10→21:35)
[2020-01-06] MEDS: VITAMIN D3 125 mcg (5,000 UNITS) PO SCH (10:10)
[2020-01-06] MEDS: TAB-A-VITE PO SCH (10:10)
--- NOTE | 2020-01-06 10:17 | PCM.PROG ---
Progress Note - Progress Note for Day of Date of Exam: 01/05/20 - Subjective Subjective: IS BEING TREATED FOR PNEUMONIA DUE TO COVID-19 AND HYPOXIA. TODAY, SHE IS ALERT AND ORIENTED, LYING IN BED ON MORNING ROUNDS. SHE IS CURRENTLY UTILIZING HEATED HIGH FLOW OXYGEN. SHE CONTINUES WITH SHORTNESS OF BREATH TODAY. SHORTNESS OF BREATH IS WORSE ON EXERTION. SHE DENIES SIGNIFICANT IMPROVEMENT. ON EXAMINATION, HEART IS REGULAR IN RATE AND RHYTHM. BILATERAL LUNGS ARE NOTED WITH DIMINISHED LUNG SOUNDS THROUGHOUT. ABDOMEN IS ROUND, SOFT, AND NON-TENDER WITH NORMAL BOWEL SOUNDS NOTED IN ALL QUADRANTS. HER VITALS THIS MORNING ARE: 98.4-61-22-91%HHF-186/84. LABS WERE OBTAINED. ABNORMAL LAB VALUES INCLUDE THE FOLLOWING: RBC 2.80, HGB 8.4, HCT 26.2, PLT COUNT 116, POTASSIUM 5. 2, CARBON DIOXIDE 39.1, BUN 22, GLUCOSE 162, TOTAL PROTEIN 5.6. AN ABG WAS REPEATED THIS MORNING AND REVEALED: PH 7.400, PC02 77, P02 66, HC03 47.7, 02 SAT 93, BASE EXCESS 93, FI02 75. A CHEST XRAY WAS OBTAINED AND REVEALED: Worsening bilateral pulmonary infiltrates/opacities, particularly at the left lung base. RESPIRATORY THERAPY REPORTS THAT PATIENTS OXYGEN SATURATIONS DROP TO THE 70s- 80s WHEN SHE IS REMOVED FROM BIPAP OR HEATED GRABIEL FLOW OXYGEN. SHE IS CURRENTLY RECEIVING 1/2NS AT 30 ML/HR, ALBUMIN 25% IV DAILY, INVANZ 1G IV DAILY, VANCOMYCIN 750G IV Q12H, ZINC SULFATE 220MG PO DAILY, ROBITUSSIN DM 10ML PO QID, DUONEBS QID, PULMICORT NEBS BID, MUCOMYST IN [place], AND SOLU-MEDROL 80MG IV Q8H, AND HER HOME MEDICATIONS WERE RESUMED. SHE HAS RECEIVED ONE UNIT OF CONVALESCENT PLASMA SINCE ADMISSION. WE WILL CONTINUE WITH CURRENT PLAN OF CARE TODAY. OTHERWISE, WE PLAN TO FOLLOW UP WITH AM LABS, CHEST XRAY, AND ABG AND CONTINUE TO MONITOR. - Past Medical Family Social History Past Med/Fam/Surg Hx: No changes since H&P Allergies: Allergies codeine Allergy (Verified 02/06/17 22:08) hydromorphone [From Dilaudid] Allergy (Verified 02/06/17 22:08) influenza virus vaccine qs [id number] (36 mos, up) [From Single Use EZ Flu] Allergy (Verified 03/24/17 18:04) meperidine [From Demerol] Allergy (Verified 02/06/17 22:08) prednisone Allergy (Verified 02/06/17 22:08) - Review of Systems ROS: No change since H&P - Vital Signs and I&O's Vital Signs: Temperature 97.9 F Pulse Rate [Brachial] 67 Pulse Rate 84 Respiratory Rate 24 Blood Pressure [Left Arm] 164/70 Blood Pressure 158/70 O2 Sat by Pulse Oximetry 93 Intake and Output: Intake & Output 01/03/20 01/04/20 01/05/20 01/06/20 11:59 11:59 11:59 11:59 Intake Total 2410 / 2410 2163 / 2163 2190 / 2190 2320 / 2320 Output Total 1050 / 1050 2500 / 2500 1950 / 1950 1800 / 1800 Balance 1360 / 1360 -337 / -337 240 / 240 520 / 520 - Physical Exam Oriented: Normal Eyes: Normal Ear: Normal Nose: Normal Throat: Normal Respiratory: Generalized, Diminished Cardiovascular: Normal : Normal Auscultation: Bowel Sounds: Normal Palpation: Normal Tenderness: Normal Skin: Normal Musculoskeletal: Normal Psychiatric: Normal Mood Description: Calm Affect: Normal Speech Pattern: Clear, Appropriate - Laboratory and Diagnostics Result Diagrams: 01/06/20 04:26 01/06/20 04:26 Labs: 12/17/19 15:03 Blood Blood Culture - Final 12/17/19 15:00 Blood Blood Culture - Final 12/17/19 16:30 Sputum - Expectorated Sputum Sputum Culture - Final Escherichia Coli Methicillin Resis Staph Aureus 12/17/19 16:30 Sputum - Expectorated Sputum - Final Laboratory WBC 7.4 X10^3/uL (3.6-10.0) 01/06/20 04:26 RBC 2.73 X10^6/uL (3.5-5.4) L 01/06/20 04:26 Hgb 8.3 g/dL (12.0-16.0) L 01/06/20 04:26 Hct 25.4 % (36.0-47.0) L 01/06/20 04:26 MCV 93.1 fL (80.0-100.0) 01/06/20 04:26 MCH 30.3 pg (27.0-34.0) 01/06/20 04: MCHC 32.5 g/dL (33.0-35.0) L 01/06/20 04: RDW 15.4 % (11.6-16.5) 01/06/20 04:26 Plt Count 111 X10^3/uL (150.0-450.0) L 01/06/20 04:26 Plt Count Comment Decreased (ADEQUATE) A 01/06/20 04: MPV 7.7 fL (7.4-11.0) 01/06/20 04:26 Neut % (Auto) 90.8 % (42.0-75.0) H 01/06/20 04:26 Lymph % (Auto) 3.6 % (21.0-51.0) L 01/06/20 04:26 [place] % (Auto) 4.7 % (0.0-13.0) 01/06/20 04:26 Eos % (Auto) 0.0 % (0.9-2.9) L 01/06/20 04:26 Baso % (Auto) 0.9 % (0.2-1.0) 01/06/20 04:26 Neut # (Auto) 6.8 x10^3/uL (2.2-4.8) H 01/06/20 04:26 Lymph # (Auto) 0.3 X10^3/uL (1.3-2.9) L 01/06/20 04:26 [place] # (Auto) 0.4 x10^3/uL (0.3-0.8) 01/06/20 04:26 Eos # (Auto) 0.0 x10^3/uL (0.0-0.2) 01/06/20 04:26 Baso # (Auto) 0.1 X10^3/uL (0.0-0.1) 01/06/20 04:26 Absolute Nucleated RBC 0.0 /100WBC 01/06/20 04:26 Total Counted 100 01/06/20 04:26 Neutrophils % (Manual) 89 % (39-76) H 01/06/20 04:26 Band Neutrophils % 2 % (0-10) 01/06/20 04:26 Lymphocytes % (Manual) 7 % (13-43) L 01/06/20 04:26 Monocytes % (Manual) 3 % (4-9) L 01/06/20 04:26 Plt Morphology Comment Normal (NORMAL) 01/06/20 04:26 RBC Morphology Abnormal (NORMAL) A 01/06/20 04:26 Hypochromasia 1+ A 01/06/20 04:26 Anisocytosis Slight A 01/05/20 04:08 PT 14.2 SECONDS (11.8-14.3) 01/01/20 11:52 INR Target Range - 01/01/20 11:52 INR 1.13 (0.8-1.3) 01/01/20 11:52 APTT 20.0 SECONDS (22.9-36.5) L 01/01/20 11:52 PTT Comment - 01/01/20 11:52 Sample Site Rra 01/06/20 05:14 ABG pH 7.430 (7.35-7.45) 01/06/20 05:14 ABG pCO2 74.0 mmHg (35.0-45.0) H* 01/06/20 05:14 ABG pO2 59.0 mmHg (80.0-100.0) L 01/06/20 05:14 ABG HCO3 49.1 mmol/L (22-26) H* 01/06/20 05:14 ABG O2 Saturation 91.0 % (90-100) 01/06/20 05:14 ABG Base Excess 20.7 mmol/L (-2.0-2.0) H 01/06/20 05:14 [place]iston Test Pos 01/06/20 05:14 A-a Gradient 398.0 mmHg 01/06/20 05:14 FiO2 77.0 01/06/20 05:14 Blood Gas Comments Pt derick well eb 01/06/20 05:14 Sodium 139 mmol/L (136-145) 01/06/20 04:26 Corrected Sodium 140 mmol/L (136-145) 01/06/20 04:26 Potassium 4.8 mmol/L (3.5-5.1) 01/06/20 04:26 Chloride 98 mmol/L (98-107) 01/06/20 04:26 Carbon Dioxide 39.6 mmol/L (21-32) H 01/06/20 04:26 BUN 23 mg/dL (7-18) H 01/06/20 04:26 Creatinine 0.62 mg/dL (0.55-1.02) 01/06/20 04:26 Est GFR (MDRD) Af Amer > 60 (>60) 01/06/20 04:26 Est GFR (MDRD) Non-Af > 60 (>60) 01/06/20 04:26 Glucose 152 mg/dL (65-99) H 01/06/20 04:26 Calcium 8.5 mg/dL (8.5-10.1) 01/06/20 04:26 Corrected Calcium TNP 01/06/20 04:26 Ferritin 145 ng/mL (8-252) 01/06/20 04:26 Total Bilirubin 0.70 mg/dL (0.2-1.0) 01/06/20 04:26 AST 17 Units/L (15-37) 01/06/20 04:26 ALT 42 Units/L (12-78) 01/06/20 04:26 Alkaline Phosphatase 77 Units/L (46-116) 01/06/20 04:26 C-Reactive Protein < 0.50 mg/L (0-3.0) 01/06/20 04:26 Total Protein 5.6 g/dL (6.4-8.2) L 01/06/20 04:26 Albumin 3.8 g/dL (3.4-5.0) 01/06/20 04:26 Globulin 1.8 g/dL (2.5-4.5) L 01/06/20 04:26 Albumin/Globulin Ratio 2.1 Ratio (1.1-2.1) 01/06/20 04:26 Specimen Type Catherized urine 12/18/19 11:45 Urine Color Pale yellow (YELLOW) 12/18/19 11:45 Urine Appearance Clear (CLEAR) 12/18/19 11:45 Urine pH 6.0 (5.0 - 8.0) 12/18/19 11:45 Ur Specific [place] 1.015 (1.000-1.030) 12/18/19 11:45 Urine Protein 3+ (NEGATIVE) 12/18/19 11:45 Urine Glucose (UA) Negative (NEGATIVE) 12/18/19 11:45 Urine Ketones 3+ (NEGATIVE) 12/18/19 11:45 Urine Occult Blood 2+ (NEGATIVE) 12/18/19 11:45 Urine Nitrite Negative (NEGATIVE) 12/18/19 11:45 Urine Bilirubin Negative (NEGATIVE) 12/18/19 11:45 Urine Urobilinogen Normal (NORMAL) 12/18/19 11:45 Ur Leukocyte Esterase Negative (NEGATIVE) 12/18/19 11:45 Urine RBC 0-2 /HPF (0-3) 12/18/19 11:45 Urine WBC None seen /HPF (0-5) 12/18/19 11:45 Ur Squamous Epith Cells Negative /HPF (NEGATIVE) 12/18/19 11:45 Amorphous Sediment Trace /HPF (NEGATIVE) 12/18/19 11:45 Urine Bacteria Negative /HPF (NEGATIVE) 12/18/19 11:45 Granular Casts Rare /LPF (NEGATIVE) 12/18/19 11:45 Urine Mucus Few /HPF (NEGATIVE) 12/18/19 11:45 Ur Culture Indicated? No/not indicated 12/18/19 11:45 Vancomycin Trough 20.5 ug/mL (15-20) H* 01/01/20 15:28 Random Vancomycin 19.5 ug/mL 01/03/20 09:14 Miscellaneous Test Covid 19 01/03/20 14:25 Blood Type O POSITIVE 01/04/20 09:01 Antibody Screen Cancelled 01/04/20 09:01 - Plan (1) COVID-19 Status: Acute Plan: 1/2NS AT 30 ML/HR, INVANZ 1G IV DAILY, VANCOMYCIN 750 MG IV Q12H, ZINC SULFATE 220MG PO DAILY, ROBITUSSIN DM 10ML PO QID, DUONEBS QID, PULMICORT NEBS BID, MUCOMYST IN [place]B [place], AND SOLU-MEDROL 80MG IV Q8H. (2) Pneumonia Status: Acute Qualifiers: Pneumonia type: due to methicillin-resistant Staphylococcus aureus (MRSA) Laterality: bilateral Lung location: lower lobe of lung Qualified Code(s): J15.212 - Pneumonia due to Methicillin resistant Staphylococcus aureus (3) Coronary artery disease Status: Chronic Qualifiers: Coronary Disease-Associated Artery/Lesion type: [place] artery [place] vs. transplanted heart: [place] heart Associated angina: with stable angina Qualified Code(s): I25.118 - Atherosclerotic heart disease of [place] coronary artery with other forms of angina pectoris (4) Dyslipidemia Status: Chronic (5) GERD (gastroesophageal reflux disease) Status: Chronic Qualifiers: Esophagitis presence: esophagitis presence not specified (6) COPD (chronic obstructive pulmonary disease) Status: Chronic Qualifiers: COPD type: chronic bronchitis Chronic bronchitis type: mucopurulent Qualified Code(s): J41.1 - Mucopurulent chronic bronchitis (7) HTN (hypertension) Status: Chronic Qualifiers: Hypertension type: essential hypertension Qualified Code(s): I10 - Essential (primary) hypertension
--- NOTE | 2020-01-06 10:23 | PCM.PROG ---
Progress Note - Progress Note for Day of Date of Exam: 01/06/20 - Subjective Subjective: IS BEING TREATED FOR PNEUMONIA DUE TO COVID-19 AND HYPOXIA. TODAY, SHE IS ALERT AND ORIENTED, LYING IN BED ON MORNING ROUNDS. SHE IS CURRENTLY UTILIZING HEATED HIGH FLOW OXYGEN. SHE CONTINUES WITH SHORTNESS OF BREATH TODAY. SHORTNESS OF BREATH IS WORSE ON EXERTION. SHE DENIES SIGNIFICANT IMPROVEMENT. ON EXAMINATION, HEART IS REGULAR IN RATE AND RHYTHM. BILATERAL LUNGS ARE NOTED WITH DIMINISHED LUNG SOUNDS THROUGHOUT. ABDOMEN IS ROUND, SOFT, AND NON-TENDER WITH NORMAL BOWEL SOUNDS NOTED IN ALL QUADRANTS. HER VITALS THIS MORNING ARE: 98.5-12-37-93HHF-164/70. LABS WERE OBTAINED. ABNORMAL LAB VALUES INCLUDE THE FOLLOWING: RBC 2.73, HGB 8.3, HCT 25.4, PLT COUNT 111, CARBON DIOXID E 39.6, BUN 23, GLUCOSE 152, TOTAL PROTEIN 5.6. AN ABG WAS OBTAINED THIS MORNING AND REVEALED: PH 7.430, PC02 74, P02 59, HC03 49.1, 02 SAT 91, BASE EXCESS 20.7, FI02 77.0. A CHEST XRAY WAS OBTAINED AND REVEALED: Slight increase in right basilar opacities/infiltrates. RESPIRATORY THERAPY REPORTS THAT THEY PLACED PATIENT ON OXYGEN CONCENTRATOR AT 10LPM CONNECTED TO HEATED HIGH FLOW. THIS WAS A TRIAL FOR OXYGEN THERAPY AT THE SENIOR LIVING. IT WAS REPORTED THAT FIO2 ONLY REGISTERED 44% AND PATIENT'S SPO2 DROPPED TO 68-72%. THE AMOUNT OF OXYGEN THE PATIENT REQUIRES COULD NOT BE MET WITH THE CONCENTRATOR. SHE IS CURRENTLY RECEIVING 1/2NS AT 30 ML/HR, ALBUMIN 25% IV DAILY, INVANZ 1G IV DAILY, VANC OMYCIN 750G IV Q12H, ZINC SULFATE 220MG PO DAILY, ROBITUSSIN DM 10ML PO QID, DUONEBS QID, PULMICORT NEBS BID, MUCOMYST IN NEB [place], AND SOLU-MEDROL 80MG IV Q8H, AND HER HOME MEDICATIONS WERE RESUMED. SHE HAS RECEIVED ONE UNIT OF CONVALESCENT PLASMA SINCE ADMISSION. WE WILL CONTINUE WITH CURRENT PLAN OF CARE TODAY. OTHERWISE, WE PLAN TO FOLLOW UP WITH AM LABS, CHEST XRAY, AND ABG AND CONTINUE TO MONITOR. - Past Medical Family Social History Past Med/Fam/Surg Hx: No changes since H&P Allergies: Allergies codeine Allergy (Verified 09/21/17 22:08) hydromorphone [From Dilaudid] Allergy (Verified 02/06/17 22:08) influenza virus vaccine qs 0024-9061 (36 mos, up) [From Single Use EZ Flu] Allergy (Verified 03/24/17 18:04) meperidine [From Demerol] Allergy (Verified 02/06/17 22:08) prednisone Allergy (Verified 02/06/17 22:08) - Review of Systems ROS: No change since H&P - Vital Signs and I&O's Vital Signs: Temperature 97.9 F Pulse Rate [Brachial] 67 Pulse Rate 84 Respiratory Rate 24 Blood Pressure [Left Arm] 164/70 Blood Pressure 158/70 O2 Sat by Pulse Oximetry 93 Intake and Output: Intake & Output 01/03/20 01/04/20 01/05/20 01/06/20 11:59 11:59 11:59 11:59 Intake Total 2410 / 2410 2163 / 2163 2190 / 2190 2320 / 2320 Output Total 1050 / 1050 2500 / 2500 1950 / 1950 1800 / 1800 Balance 1360 / 1360 -337 / -337 240 / 240 520 / 520 - Physical Exam Oriented: Normal Eyes: Normal Ear: Normal Nose: Normal Throat: Normal Respiratory: Generalized, Diminished Cardiovascular: Normal : Normal Auscultation: Bowel Sounds: Normal Tenderness: Normal Skin: Normal Musculoskeletal: Normal Psychiatric: Normal Mood Description: Calm Affect: Normal Speech Pattern: Clear, Appropriate - Laboratory and Diagnostics Result Diagrams: 01/06/20 04:26 01/06/20 04:26 Labs: 12/17/19 15:03 Blood Blood Culture - Final 12/17/19 15:00 Blood Blood Culture - Final 12/17/19 16:30 Sputum - Expectorated Sputum Sputum Culture - Final Escherichia Coli Methicillin Resis Staph Aureus 12/17/19 16:30 Sputum - Expectorated Sputum - Final Laboratory WBC 7.4 X10^3/uL (3.6-10.0) 01/06/20 04:26 RBC 2.73 X10^6/uL (3.5-5.4) L 01/06/20 04:26 Hgb 8.3 g/dL (12.0-16.0) L 01/06/20 04:26 Hct 25.4 % (36.0-47.0) L 01/06/20 04:26 MCV 93.1 fL (80.0-100.0) 01/06/20 04: MCH 30.3 pg (27.0-34.0) 01/06/20 04: MCHC 32.5 g/dL (33.0-35.0) L 01/06/20 04: RDW 15.4 % (11.6-16.5) 01/06/20 04: Plt Count 111 X10^3/uL (150.0-450.0) L 01/06/20 04:26 Plt Count Comment Decreased (ADEQUATE) A 01/06/20 04: MPV 7.7 fL (7.4-11.0) 01/06/20 04: Neut % (Auto) 90.8 % (42.0-75.0) H 01/06/20 04:26 Lymph % (Auto) 3.6 % (21.0-51.0) L 01/06/20 04:26 [place] % (Auto) 4.7 % (0.0-13.0) 01/06/20 04: Eos % (Auto) 0.0 % (0.9-2.9) L 01/06/20 04:26 Baso % (Auto) 0.9 % (0.2-1.0) 01/06/20 04: Neut # (Auto) 6.8 x10^3/uL (2.2-4.8) H 01/06/20 04:26 Lymph # (Auto) 0.3 X10^3/uL (1.3-2.9) L 01/06/20 04:26 [place] # (Auto) 0.4 x10^3/uL (0.3-0.8) 01/06/20 04:26 Eos # (Auto) 0.0 x10^3/uL (0.0-0.2) 01/06/20 04: Baso # (Auto) 0.1 X10^3/uL (0.0-0.1) 01/06/20 04:26 Absolute Nucleated RBC 0.0 /100WBC 01/06/20 04:26 Total Counted 100 01/06/20 04:26 Neutrophils % (Manual) 89 % (39-76) H 01/06/20 04:26 Band Neutrophils % 2 % (0-10) 01/06/20 04:26 Lymphocytes % (Manual) 7 % (13-43) L 01/06/20 04:26 Monocytes % (Manual) 3 % (4-9) L 01/06/20 04:26 Plt Morphology Comment Normal (NORMAL) 01/06/20 04:26 RBC Morphology Abnormal (NORMAL) A 01/06/20 04:26 Hypochromasia 1+ A 01/06/20 04:26 Anisocytosis Slight A 01/05/20 04:08 PT 14.2 SECONDS (11.8-14.3) 01/01/20 11:52 INR Target Range - 01/01/20 11:52 INR 1.13 (0.8-1.3) 01/01/20 11:52 APTT 20.0 SECONDS (22.9-36.5) L 01/01/20 11:52 PTT Comment - 01/01/20 11:52 Sample Site Rra 01/06/20 05:14 ABG pH 7.430 (7.35-7.45) 01/06/20 05:14 ABG pCO2 74.0 mmHg (35.0-45.0) H* 01/06/20 05:14 ABG pO2 59.0 mmHg (80.0-100.0) L 01/06/20 05:14 ABG HCO3 49.1 mmol/L (22-26) H* 01/06/20 05:14 ABG O2 Saturation 91.0 % (90-100) 01/06/20 05:14 ABG Base Excess 20.7 mmol/L (-2.0-2.0) H 01/06/20 05:14 [place] Test Pos 01/06/20 05:14 A-a Gradient 398.0 mmHg 01/06/20 05:14 FiO2 77.0 01/06/20 05:14 Blood Gas Comments Pt derick well eb 01/06/20 05:14 Sodium 139 mmol/L (136-145) 01/06/20 04:26 Corrected Sodium 140 mmol/L (136-145) 01/06/20 04:26 Potassium 4.8 mmol/L (3.5-5.1) 01/06/20 04:26 Chloride 98 mmol/L (98-107) 01/06/20 04:26 Carbon Dioxide 39.6 mmol/L (21-32) H 01/06/20 04:26 BUN 23 mg/dL (7-18) H 01/06/20 04:26 Creatinine 0.62 mg/dL (0.55-1.02) 01/06/20 04:26 Est GFR (MDRD) Af Amer > 60 (>60) 01/06/20 04:26 Est GFR (MDRD) Non-Af > 60 (>60) 01/06/20 04:26 Glucose 152 mg/dL (65-99) H 01/06/20 04:26 Calcium 8.5 mg/dL (8.5-10.1) 01/06/20 04:26 Corrected Calcium TNP 01/06/20 04:26 Ferritin 145 ng/mL (8-252) 01/06/20 04:26 Total Bilirubin 0.70 mg/dL (0.2-1.0) 01/06/20 04:26 AST 17 Units/L (15-37) 01/06/20 04:26 ALT 42 Units/L (12-78) 01/06/20 04:26 Alkaline Phosphatase 77 Units/L (46-116) 01/06/20 04:26 C-Reactive Protein < 0.50 mg/L (0-3.0) 01/06/20 04:26 Total Protein 5.6 g/dL (6.4-8.2) L 01/06/20 04:26 Albumin 3.8 g/dL (3.4-5.0) 01/06/20 04:26 Globulin 1.8 g/dL (2.5-4.5) L 01/06/20 04:26 Albumin/Globulin Ratio 2.1 Ratio (1.1-2.1) 01/06/20 04:26 Specimen Type Catherized urine 12/18/19 11:45 Urine Color Pale yellow (YELLOW) 12/18/19 11:45 Urine Appearance Clear (CLEAR) 12/18/19 11:45 Urine pH 6.0 (5.0 - 8.0) 12/18/19 11:45 Ur Specific [place] 1.015 (1.000-1.030) 12/18/19 11:45 Urine Protein 3+ (NEGATIVE) 12/18/19 11:45 Urine Glucose (UA) Negative (NEGATIVE) 12/18/19 11:45 Urine Ketones 3+ (NEGATIVE) 12/18/19 11:45 Urine Occult Blood 2+ (NEGATIVE) 12/18/19 11:45 Urine Nitrite Negative (NEGATIVE) 12/18/19 11:45 Urine Bilirubin Negative (NEGATIVE) 12/18/19 11:45 Urine Urobilinogen Normal (NORMAL) 12/18/19 11:45 Ur Leukocyte Esterase Negative (NEGATIVE) 12/18/19 11:45 Urine RBC 0-2 /HPF (0-3) 12/18/19 11:45 Urine WBC None seen /HPF (0-5) 12/18/19 11:45 Ur Squamous Epith Cells Negative /HPF (NEGATIVE) 12/18/19 11:45 Amorphous Sediment Trace /HPF (NEGATIVE) 12/18/19 11:45 Urine Bacteria Negative /HPF (NEGATIVE) 12/18/19 11:45 Granular Casts Rare /LPF (NEGATIVE) 12/18/19 11:45 Urine Mucus Few /HPF (NEGATIVE) 12/18/19 11:45 Ur Culture Indicated? No/not indicated 12/18/19 11:45 Vancomycin Trough 20.5 ug/mL (15-20) H* 01/01/20 15:28 Random Vancomycin 19.5 ug/mL 01/03/20 09:14 Miscellaneous Test Covid 19 01/03/20 14:25 Blood Type O POSITIVE 01/04/20 09:01 Antibody Screen Cancelled 01/04/20 09:01 - Plan (1) COVID-19 Status: Acute Plan: 1/2NS AT 30 ML/HR, INVANZ 1G IV DAILY, VANCOMYCIN 750 MG IV Q12H, ZINC SULFATE 220MG PO DAILY, ROBITUSSIN DM 10ML PO QID, DUONEBS QID, PULMICORT NEBS BID, MUCOMYST IN NEB [place], AND SOLU-MEDROL 80MG IV Q8H. (2) Pneumonia Status: Acute Qualifiers: Pneumonia type: due to methicillin-resistant Staphylococcus aureus (MRSA) Laterality: bilateral Lung location: lower lobe of lung Qualified Code(s): J15.212 - Pneumonia due to Methicillin resistant Staphylococcus aureus (3) Coronary artery disease Status: Chronic Qualifiers: Coronary Disease-Associated Artery/Lesion type: [place] artery [place] vs. transplanted heart: [place] heart Associated angina: with stable angina Qualified Code(s): I25.118 - Atherosclerotic heart disease of [place] coronary artery with other forms of angina pectoris (4) Dyslipidemia Status: Chronic (5) GERD (gastroesophageal reflux disease) Status: Chronic Qualifiers: Esophagitis presence: esophagitis presence not specified (6) COPD (chronic obstructive pulmonary disease) Status: Chronic Qualifiers: COPD type: chronic bronchitis Chronic bronchitis type: mucopurulent Qu alified Code(s): J41.1 - Mucopurulent chronic bronchitis (7) HTN (hypertension) Status: Chronic Qualifiers: Hypertension type: essential hypertension Qualified Code(s): I10 - Essential (primary) hypertension
[2020-01-06] MEDS: POTASSIUM CHLORIDE LIQ 20 MEQ UDC PO SCH (11:02)
[2020-01-06] MEDS: INVANZ INJ 1 GM VIAL 1 GM in NS 100 ML IV + SPIKE MINIBAG* 100 ML IV SCH (11:03)
[2020-01-06] MEDS: ALBUMIN HUMAN 25%- 100 ML 100 ML IV SCH (11:06)
[2020-01-06] MEDS ORDERED: NS 1/2 1000 ML IV 1,000 ML IV ONE (14:11)
[2020-01-06] MEDS: NS 1/2 1000 ML IV 1,000 ML IV SCH (14:30)
[2020-01-06 21:09] LABS: CREATININE 0.9 mg/dL (0.55-1.02); VANCOMYCIN,TROUGH 14.7 ug/mL (15-20)
[2020-01-06] MEDS: XARELTO PO SCH (21:30)
[2020-01-06] MEDS: CRESTOR TAB 10 MG PO SCH (21:30)
[2020-01-06] MEDS: KLONOPIN TAB 1 MG PO SCH (21:30)
[2020-01-06] MEDS: MUCINEX EXPECTORANT PO SCH (21:30)
[2020-01-06] MEDS: VANCOMYCIN HCL 1 G in D5W 250 ML IV 250 ML IV SCH (22:10)
[2020-01-07 05:36] LABS: ABG BASE EXCESS 17.4 mmol/L (-2.0-2.0)
[2020-01-07 05:37] LABS: ABG ALLEN TEST POS; ABG HCO3 45.8 mmol/L (22-26)
--- NOTE | 2020-01-07 06:07 | RAD ---
HISTORYShortness of breathSTUDYChest AP [id number]/20/2020FINDINGSThe heart remains enlarged. No definite congestive heart failure is noted. Considering a difference in film technique there is no significant change in the bilateral interstitial and some confluent ground-glass infiltrates. No pleural effusions are identified. Bony thorax is unremarkable.IMPRESSIONNo change cardiomegaly without congestive heart failureNo change bilateral interstitial and confluent ground-glass and alveolar infiltratesElectronically signed by: MARY ELLEN CORRAL (Jan 07, 2020 06:06:44)
[2020-01-07 06:10] LABS: BASOPHILS % (AUTO) 0.4 % (0.2-1.0); HEMATOCRIT 24.4 % (36.0-47.0); HEMOGLOBIN 8.2 g/dL (12.0-16.0); LYMPHOCYTES # (AUTO) 0.3 X10^3/uL (1.3-2.9); LYMPHOCYTES % (AUTO) 4.4 % (21.0-51.0); MEAN CORPUSCULAR HEMOGLOBIN 30.9 pg (27.0-34.0); MEAN CORPUSCULAR HGB CONC 33.5 g/dL (33.0-35.0); MEAN CORPUSCULAR VOLUME 92.2 fL (80.0-100.0); MEAN PLATELET VOLUME 7.6 fL (7.4-11.0); MONOCYTES # (AUTO) 0.3 x10^3/uL (0.3-0.8); MONOCYTES % (AUTO) 4.1 % (0.0-13.0); NEUTROPHILS # (AUTO) 6.4 x10^3/uL (2.2-4.8); NEUTROPHILS % (AUTO) 91.1 % (42.0-75.0); PLATELET COUNT 105 X10^3/uL (150.0-450.0); RED BLOOD COUNT 2.64 X10^6/uL (3.5-5.4); RED CELL DISTRIBUTION WIDTH 15.8 % (11.6-16.5)
[2020-01-07 06:20] LABS: ALANINE AMINOTRANSFERASE 39 Units/L (12-78); ALBUMIN 3.9 g/dL (3.4-5.0); ALKALINE PHOSPHATASE 62 Units/L (46-116); ASPARTATE AMINO TRANSFERASE 17 Units/L (15-37); BLOOD UREA NITROGEN 24 mg/dL (7-18); CALCIUM 8.6 mg/dL (8.5-10.1); CARBON DIOXIDE 38.1 mmol/L (21-32); CHLORIDE 99 mmol/L (98-107); COR NA(FOR HYPERGLY) 139 mmol/L (136-145); CREATININE 0.66 mg/dL (0.55-1.02); SODIUM 138 mmol/L (136-145); TOTAL PROTEIN 5.7 g/dL (6.4-8.2); eGFR NON BLACK RACES > 60 (>60)
[2020-01-07] MEDS: NORCO 7.5/325 MG TAB PO SCH ×3 (06:58→21:50)
[2020-01-07] MEDS: SOLU-Medrol 40 MG VIAL IVP SCH ×3 (06:59→21:51)
[2020-01-07 07:39] LABS: BAND NEUTROPHILS % 4 % (0-10); PLATELET MORPHOLOGY COMMENT NORMAL (NORMAL)
[2020-01-07] MEDS: MUCOMYST (RESPIRATORY USE ONLY) NEB SCH ×2 (08:25→21:35)
[2020-01-07] MEDS: PULMICORT NEB TX 0.5 MG NEB SCH ×2 (08:25→21:35)
[2020-01-07] MEDS: DUONEB 0.5 MG/3 MG (3 mL) NEB SCH ×4 (08:25→21:35)
[2020-01-07] MEDS: VITAMIN D3 125 mcg (5,000 UNITS) PO SCH (09:35)
[2020-01-07] MEDS: CLARITIN PO SCH (09:36)
[2020-01-07] MEDS: LASIX PO SCH (09:36)
[2020-01-07] MEDS: FOLIC ACID TAB 1 MG PO SCH (09:36)
[2020-01-07] MEDS: VITAMIN C PO SCH (09:36)
[2020-01-07] MEDS: ZINC SULFATE PO SCH (09:36)
[2020-01-07] MEDS: VANCOMYCIN HCL 1 G in D5W 250 ML IV 250 ML IV SCH ×2 (09:37→20:18)
[2020-01-07] MEDS: TAB-A-VITE PO SCH (09:37)
[2020-01-07] MEDS: COREG TAB 12.5 MG PO SCH ×2 (09:37→20:16)
[2020-01-07] MEDS: NexIUM PO SCH (09:37)
[2020-01-07] MEDS: PROzac PO SCH (09:38)
[2020-01-07] MEDS: SINGULAIR TAB 10 MG PO SCH (09:38)
[2020-01-07] MEDS: CELEBREX PO SCH (09:38)
[2020-01-07] MEDS: VSL#3 PO SCH (09:39)
[2020-01-07] MEDS: THEO-DUR TAB 200 MG 12-HR PO SCH ×2 (09:40→20:15)
[2020-01-07] MEDS: FERROUS GLUCONATE PO SCH (09:40)
[2020-01-07] MEDS: POTASSIUM CHLORIDE LIQ 20 MEQ UDC PO SCH (09:40)
[2020-01-07] MEDS: COLACE CAP 100 MG PO SCH ×2 (09:41→20:17)
[2020-01-07] MEDS: CITRACAL + VITAMIN D PO SCH ×2 (09:41→20:17)
[2020-01-07] MEDS: ALBUMIN HUMAN 25%- 100 ML 100 ML IV SCH (09:41)
[2020-01-07] MEDS: ROBITUSSIN DM PO SCH ×5 (09:42→21:49)
[2020-01-07] MEDS: INVANZ INJ 1 GM VIAL 1 GM in NS 100 ML IV + SPIKE MINIBAG* 100 ML IV SCH (09:54)
[2020-01-07] MEDS: NEURONTIN CAP 300 MG PO SCH ×3 (13:56→21:50)
[2020-01-07] MEDS: NS 1/2 1000 ML IV 1,000 ML IV SCH ×2 (18:43→21:50)
[2020-01-07] MEDS: KLONOPIN TAB 1 MG PO SCH (20:15)
[2020-01-07] MEDS: MUCINEX EXPECTORANT PO SCH (20:15)
[2020-01-07] MEDS: CRESTOR TAB 10 MG PO SCH (20:16)
[2020-01-07] MEDS: XARELTO PO SCH (20:17)
[2020-01-08] MEDS ORDERED: MAALOX or MYLANTA PO PRN (04:33)
[2020-01-08] MEDS ORDERED: MAALOX or MYLANTA ONE (04:36)
[2020-01-08] MEDS ORDERED: NS 1/2 1000 ML IV 1,000 ML IV ONE (05:07)
[2020-01-08] MEDS: NS 1/2 1000 ML IV 1,000 ML IV SCH ×2 (05:38→18:59)
[2020-01-08] MEDS: NEURONTIN CAP 300 MG PO SCH ×3 (05:39→21:33)
[2020-01-08] MEDS: NORCO 7.5/325 MG TAB PO SCH ×3 (05:39→21:33)
[2020-01-08] MEDS: SOLU-Medrol 40 MG VIAL IVP SCH ×4 (05:39→21:33)
[2020-01-08 06:18] LABS: ABG ALLEN TEST POS; ABG HCO3 38.5 mmol/L (22-26); FRACTIONATED INSPIRED OXYGEN 49
--- NOTE | 2020-01-08 06:39 | RAD ---
HISTORYSOB pneumoniaSTUDYPortable AP [id number]/21/2020FINDINGSStable cardiomegaly. Persistent diffuse bilateral infiltrates with slight apparent interval improvement since 1 day earlier. No new consolidation, developing extrapulmonary air or large pleural effusion.IMPRESSIONSlight interval improvement in aeration of the lungs with no new abnormality demonstrated.Electronically signed by: VILLA PLEITEZ (Jan 08, 2020 06:39:04)
[2020-01-08 06:52] LABS: BASOPHILS % (AUTO) 0.2 % (0.2-1.0); HEMATOCRIT 27.7 % (36.0-47.0); LYMPHOCYTES # (AUTO) 0.3 X10^3/uL (1.3-2.9); LYMPHOCYTES % (AUTO) 3.6 % (21.0-51.0); MEAN CORPUSCULAR HEMOGLOBIN 30.5 pg (27.0-34.0); MEAN CORPUSCULAR HGB CONC 32.7 g/dL (33.0-35.0); MEAN CORPUSCULAR VOLUME 93.3 fL (80.0-100.0); MEAN PLATELET VOLUME 8.1 fL (7.4-11.0); MONOCYTES # (AUTO) 0.5 x10^3/uL (0.3-0.8); MONOCYTES % (AUTO) 5.4 % (0.0-13.0); NEUTROPHILS # (AUTO) 8.8 x10^3/uL (2.2-4.8); NEUTROPHILS % (AUTO) 90.8 % (42.0-75.0); PLATELET COUNT 120 X10^3/uL (150.0-450.0); RED BLOOD COUNT 2.97 X10^6/uL (3.5-5.4); RED CELL DISTRIBUTION WIDTH 16.1 % (11.6-16.5); WHITE BLOOD COUNT 9.7 X10^3/uL (3.6-10.0)
[2020-01-08 07:07] LABS: ALANINE AMINOTRANSFERASE 38 Units/L (12-78); ALBUMIN 4.2 g/dL (3.4-5.0); ALKALINE PHOSPHATASE 73 Units/L (46-116); ASPARTATE AMINO TRANSFERASE 16 Units/L (15-37); BLOOD UREA NITROGEN 31 mg/dL (7-18); CALCIUM 8.5 mg/dL (8.5-10.1); CARBON DIOXIDE 38.4 mmol/L (21-32); CHLORIDE 98 mmol/L (98-107); COR NA(FOR HYPERGLY) 139 mmol/L (136-145); SODIUM 139 mmol/L (136-145); eGFR NON BLACK RACES > 60 (>60)
[2020-01-08 08:29] LABS: BAND NEUTROPHILS % 4 % (0-10); PLATELET MORPHOLOGY COMMENT NORMAL (NORMAL)
[2020-01-08] MEDS ORDERED: PHARMACY COMMENT IV NR (08:30)
[2020-01-08] MEDS: ALBUMIN HUMAN 25%- 100 ML 100 ML IV SCH (10:09)
[2020-01-08] MEDS: VSL#3 PO SCH (10:11)
[2020-01-08] MEDS: ZINC SULFATE PO SCH (10:11)
[2020-01-08] MEDS: VITAMIN C PO SCH (10:12)
[2020-01-08] MEDS: VITAMIN D3 125 mcg (5,000 UNITS) PO SCH (10:12)
[2020-01-08] MEDS: TAB-A-VITE PO SCH (10:13)
[2020-01-08] MEDS: THEO-DUR TAB 200 MG 12-HR PO SCH ×2 (10:13→21:32)
[2020-01-08] MEDS: ROBITUSSIN DM PO SCH ×4 (10:14→21:32)
[2020-01-08] MEDS: SINGULAIR TAB 10 MG PO SCH (10:14)
[2020-01-08] MEDS: NexIUM PO SCH (10:15)
[2020-01-08] MEDS: INVANZ INJ 1 GM VIAL 1 GM in NS 100 ML IV + SPIKE MINIBAG* 100 ML IV SCH (10:16)
[2020-01-08] MEDS: COREG TAB 12.5 MG PO SCH ×2 (10:17→21:30)
[2020-01-08] MEDS: PROzac PO SCH (10:17)
[2020-01-08] MEDS: COLACE CAP 100 MG PO SCH ×2 (10:17→21:30)
[2020-01-08] MEDS: VANCOMYCIN HCL 1 G in D5W 250 ML IV 250 ML IV SCH ×2 (10:18→21:31)
[2020-01-08] MEDS: FOLIC ACID TAB 1 MG PO SCH (10:19)
[2020-01-08] MEDS: FERROUS GLUCONATE PO SCH (10:19)
[2020-01-08] MEDS: CELEBREX PO SCH (10:19)
[2020-01-08] MEDS: CLARITIN PO SCH (10:20)
[2020-01-08] MEDS: CITRACAL + VITAMIN D PO SCH ×2 (10:20→21:30)
[2020-01-08] MEDS: POTASSIUM CHLORIDE LIQ 20 MEQ UDC PO SCH (10:21)
[2020-01-08] MEDS: LASIX PO SCH (10:23)
[2020-01-08] MEDS: DUONEB 0.5 MG/3 MG (3 mL) NEB SCH ×4 (10:25→21:50)
[2020-01-08] MEDS: MUCOMYST (RESPIRATORY USE ONLY) NEB SCH ×2 (10:25→21:50)
[2020-01-08] MEDS: PULMICORT NEB TX 0.5 MG NEB SCH ×2 (10:25→21:50)
[2020-01-08 10:28] LABS: CREATININE 0.74 mg/dL (0.55-1.02); VANCOMYCIN,TROUGH 17.6 ug/mL (15-20)
--- NOTE | 2020-01-08 10:42 | PCM.PROG ---
Progress Note - Progress Note for Day of Date of Exam: 01/07/20 - Subjective Subjective: IS BEING TREATED FOR PNEUMONIA DUE TO COVID-19 AND HYPOXIA. TODAY, SHE IS ALERT AND ORIENTED, LYING IN BED ON MORNING ROUNDS. SHE IS CURRENTLY UTILIZING HEATED HIGH FLOW OXYGEN. SHE CONTINUES WITH SHORTNESS OF BREATH AND WEAKNESS TODAY. SHORTNESS OF BREATH IS WORSE ON EXERTION. SHE REPORTS SLIGHT IMPROVEMENT TODAY. ON EXAMINATION, HEART IS REGULAR IN RATE AND RHYTHM. BILATERAL LUNGS ARE NOTED WITH DIMINISHED LUNG SOUNDS THROUGHOUT. ABDOMEN IS ROUND, SOFT, AND NON-TENDER WITH NORMAL BOWEL SOUNDS NOTED IN ALL QUADRANTS. HER VITALS THIS MORNING ARE: 97.9-85-23-95%HHF-154/68. LABS WERE OBTAINED. ABNORMAL LAB VALUES INCLUDE THE FOLLOWING: RBC 2.64, HGB 8.2, HCT 24.4, PLT COUNT 105, CARBON DIOXIDE 38.1, BUN 24, GLUCOSE 130, TOTAL PROTEIN 5.7, ALBUMIN 1.8. AN ABG WAS OBTAINED THIS MORNING AND REVEALED: PH 7.400, PC02 74, P02 60, HC03 45.8, 02 SAT 91, FI02 61. A CHEST XRAY WAS OBTAINED AND REVEALED: No change cardiomegaly without congestive heart failure. No change bilateral interstitial and confluent ground-glass and alveolar infiltrates. SHE IS CURRENTLY RECEIVING 1/2NS AT 30 ML/HR, ALBUMIN 25% IV DAILY, INVANZ 1G IV DAILY, VANCOMYCIN 750G IV Q12H, ZINC SULFATE 220MG PO DAILY, ROBITUSSIN DM 10ML PO QID, DUONEBS QID, PULMICORT NEBS BID, MUCOMYST IN NEB [place], AND SOLU-MEDROL 80MG IV Q8H, AND HER HOME MEDICATIONS WERE RESUMED. SHE HAS RECEIVED ONE UNIT OF CONVALESCENT PLASMA SINCE ADMISSION. WE WILL CONTINUE WITH CURRENT PLAN OF CARE TODAY. OTHERWISE, WE PLAN TO FOLLOW UP WITH AM LABS, CHEST XRAY, AND ABG AND CONTINUE TO MONITOR. - Past Medical Family Social History Past Med/Fam/Surg Hx: No changes since H&P Allergies: Allergies codeine Allergy (Verified 02/06/17 22:08) hydromorphone [From Dilaudid] Allergy (Verified 02/06/17 22:08) influenza virus vaccine qs 0335-3659 (36 mos, up) [From Single Use EZ Flu] Allergy (Verified 03/24/17 18:04) meperidine [From Demerol] Allergy (Verified 02/06/17 22:08) prednisone Allergy (Verified 02/06/17 22:08) - Review of Systems ROS: No change since H&P - Vital Signs and I&O's Vital Signs: Temperature 98.2 F Pulse Rate [Brachial] 90 Pulse Rate 80 Respiratory Rate 20 Blood Pressure [Left Arm] 148/71 Blood Pressure 158/70 O2 Sat by Pulse Oximetry 92 Intake and Output: Intake & Output 01/05/20 01/06/20 01/07/20 01/08/20 11:59 11:59 11:59 11:59 Intake Total 2190 / 2190 2320 / 2320 1901 / 1901 2244 / 2244 Output Total 1950 / 1950 1800 / 1800 1999 / 2124 Balance 240 / 240 520 / 520 -99 / -99 119 / 119 - Physical Exam Oriented: Normal Eyes: Normal Ear: Normal Nose: Normal Throat: Normal Respiratory: Generalized, Diminished Cardiovascular: Normal : Normal Auscultation: Bowel Sounds: Normal Tenderness: Normal Skin: Normal Musculoskeletal: Normal Psychiatric: Normal Mood Description: Calm Affect: Normal Speech Pattern: Clear, Appropriate - Laboratory and Diagnostics Result Diagrams: 01/08/20 05:29 01/08/20 10:02 Labs: 12/17/19 15:03 Blood Blood Culture - Final 12/17/19 15:00 Blood Blood Culture - Final 12/17/19 16:30 Sputum - Expectorated Sputum Sputum Culture - Final Escherichia Coli Methicillin Resis Staph Aureus 12/17/19 16:30 Sputum - Expectorated Sputum - Final Laboratory WBC 9.7 X10^3/uL (3.6-10.0) 01/08/20 05:29 RBC 2.97 X10^6/uL (3.5-5.4) L 01/08/20 05:29 Hgb 9.0 g/dL (12.0-16.0) L 01/08/20 05:29 Hct 27.7 % (36.0-47.0) L 01/08/20 05:29 MCV 93.3 fL (80.0-100.0) 01/08/20 05:29 MCH 30.5 pg (27.0-34.0) 01/08/20 05:29 MCHC 32.7 g/dL (33.0-35.0) L 01/08/20 05:29 RDW 16.1 % (11.6-16.5) 01/08/20 05:29 Plt Count 120 X10^3/uL (150.0-450.0) L 01/08/20 05:29 Plt Count Comment Decreased (ADEQUATE) A 01/08/20 05:29 MPV 8.1 fL (7.4-11.0) 01/08/20 05:29 Neut % (Auto) 90.8 % (42.0-75.0) H 01/08/20 05:29 Lymph % (Auto) 3.6 % (21.0-51.0) L 01/08/20 05:29 [place] % (Auto) 5.4 % (0.0-13.0) 01/08/20 05:29 Eos % (Auto) 0.0 % (0.9-2.9) L 01/08/20 05:29 Baso % (Auto) 0.2 % (0.2-1.0) 01/08/20 05:29 Neut # (Auto) 8.8 x10^3/uL (2.2-4.8) H 01/08/20 05:29 Lymph # (Auto) 0.3 X10^3/uL (1.3-2.9) L 01/08/20 05:29 [place] # (Auto) 0.5 x10^3/uL (0.3-0.8) 01/08/20 05:29 Eos # (Auto) 0.0 x10^3/uL (0.0-0.2) 01/08/20 05:29 Baso # (Auto) 0.0 X10^3/uL (0.0-0.1) 01/08/20 05:29 Absolute Nucleated RBC 0.1 /100WBC 01/08/20 05:29 Total Counted 100 01/08/20 05:29 Neutrophils % (Manual) 90 % (39-76) H 01/08/20 05:29 Band Neutrophils % 4 % (0-10) 01/08/20 05:29 Lymphocytes % (Manual) 4 % (13-43) L 01/08/20 05:29 Monocytes % (Manual) 2 % (4-9) L 01/08/20 05:29 Plt Morphology Comment Normal (NORMAL) 01/08/20 05:29 RBC Morphology Normal (NORMAL) 01/08/20 05:29 Hypochromasia 1+ A 01/06/20 04:26 Anisocytosis Slight A 01/05/20 04:08 PT 14.2 SECONDS (11.8-14.3) 01/01/20 11:52 INR Target Range - 01/01/20 11:52 INR 1.13 (0.8-1.3) 01/01/20 11:52 APTT 20.0 SECONDS (22.9-36.5) L 01/01/20 11:52 PTT Comment - 01/01/20 11:52 Sample Site Lr 01/08/20 05:00 ABG pH 7.430 (7.35-7.45) 01/08/20 05:00 ABG pCO2 58.0 mmHg (35.0-45.0) H* 01/08/20 05:00 ABG pO2 60.0 mmHg (80.0-100.0) L 01/08/20 05:00 ABG HCO3 38.5 mmol/L (22-26) H* 01/08/20 05:00 ABG O2 Saturation 91.0 % (90-100) 01/08/20 05:00 ABG Base Excess 12.0 mmol/L (-2.0-2.0) H 01/08/20 05:00 [place] Test Pos 01/08/20 05:00 A-a Gradient 217.0 mmHg 01/08/20 05:00 FiO2 49 01/08/20 05:00 Blood Gas Comments [facility] well 01/08/20 05:00 Sodium 139 mmol/L (136-145) 01/08/20 05:29 Corrected Sodium 139 mmol/L (136-145) 01/08/20 05:29 Potassium 4.0 mmol/L (3.5-5.1) 01/08/20 05:29 Chloride 98 mmol/L (98-107) 01/08/20 05:29 Carbon Dioxide 38.4 mmol/L (21-32) H 01/08/20 05:29 BUN 31 mg/dL (7-18) H 01/08/20 05:29 Creatinine 0.74 mg/dL (0.55-1.02) 01/08/20 10:02 Est GFR (MDRD) Af Amer > 60 (>60) 01/08/20 05:29 Est GFR (MDRD) Non-Af > 60 (>60) 01/08/20 05:29 Glucose 119 mg/dL (65-99) H 01/08/20 05:29 Calcium 8.5 mg/dL (8.5-10.1) 01/08/20 05:29 Corrected Calcium TNP 01/08/20 05:29 Ferritin 145 ng/mL (8-252) 01/06/20 04:26 Total Bilirubin 1.10 mg/dL (0.2-1.0) H 01/08/20 05:29 AST 16 Units/L (15-37) 01/08/20 05:29 ALT 38 Units/L (12-78) 01/08/20 05:29 Alkaline Phosphatase 73 Units/L (46-116) 01/08/20 05:29 C-Reactive Protein < 0.50 mg/L (0-3.0) 01/06/20 04:26 Total Protein 6.0 g/dL (6.4-8.2) L 01/08/20 05:29 Albumin 4.2 g/dL (3.4-5.0) 01/08/20 05:29 Globulin 1.8 g/dL (2.5-4.5) L 01/08/20 05:29 Albumin/Globulin Ratio 2.3 Ratio (1.1-2.1) H 01/08/20 05:29 Specimen Type Catherized urine 12/18/19 11:45 Urine Color Pale yellow (YELLOW) 12/18/19 11:45 Urine Appearance Clear (CLEAR) 12/18/19 11:45 Urine pH 6.0 (5.0 - 8.0) 12/18/19 11:45 Ur Specific [place] 1.015 (1.000-1.030) 12/18/19 11:45 Urine Protein 3+ (NEGATIVE) 12/18/19 11:45 Urine Glucose (UA) Negative (NEGATIVE) 12/18/19 11:45 Urine Ketones 3+ (NEGATIVE) 12/18/19 11:45 Urine Occult Blood 2+ (NEGATIVE) 12/18/19 11:45 Urine Nitrite Negative (NEGATIVE) 12/18/19 11:45 Urine Bilirubin Negative (NEGATIVE) 12/18/19 11:45 Urine Urobilinogen Normal (NORMAL) 12/18/19 11:45 Ur Leukocyte Esterase Negative (NEGATIVE) 12/18/19 11:45 Urine RBC 0-2 /HPF (0-3) 12/18/19 11:45 Urine WBC None seen /HPF (0-5) 12/18/19 11:45 Ur Squamous Epith Cells Negative /HPF (NEGATIVE) 12/18/19 11:45 Amorphous Sediment Trace /HPF (NEGATIVE) 12/18/19 11:45 Urine Bacteria Negative /HPF (NEGATIVE) 12/18/19 11:45 Granular Casts Rare /LPF (NEGATIVE) 12/18/19 11:45 Urine Mucus Few /HPF (NEGATIVE) 12/18/19 11:45 Ur Culture Indicated? No/not indicated 12/18/19 11:45 Vancomycin Trough 17.6 ug/mL (15-20) 01/08/20 10:02 Random Vancomycin 19.5 ug/mL 01/03/20 09:14 Miscellaneous Test Covid 19 01/03/20 14:25 Blood Type O POSITIVE 01/04/20 09:01 Antibody Screen Cancelled 01/04/20 09:01 - Plan (1) COVID-19 Status: Acute Plan: 1/2NS AT 30 ML/HR, INVANZ 1G IV DAILY, VANCOMYCIN 750 MG IV Q12H, ZINC SULFATE 220MG PO DAILY, ROBITUSSIN DM 10ML PO QID, DUONEBS QID, PULMICORT NEBS BID, MUCOMYST IN NEB [place], AND SOLU-MEDROL 80MG IV Q8H. (2) Pneumonia Status: Acute Qualifiers: Pneumonia type: due to methicillin-resistant Staphylococcus aureus (MRSA) Laterality: bilateral Lung location: lower lobe of lung Qualified Code(s): J15.212 - Pneumonia due to Methicillin resistant Staphylococcus aureus (3) Coronary artery disease Status: Chronic Qualifiers: Coronary Disease-Associated Artery/Lesion type: [place] artery [place] vs. transplanted heart: [place] heart Associated angina: with stable angina Qualified Code(s): I25.118 - Atherosclerotic heart disease of [place] coronary artery with other forms of angina pectoris (4) Dyslipidemia Status: Chronic (5) GERD (gastroesophageal reflux disease) Status: Chronic Qualifiers: Esophagitis presence: esophagitis presence not specified (6) COPD (chronic obstructive pulmonary disease) Status: Chronic Qualifiers: COPD type: chronic bronchitis Chronic bronchitis type: mucopurulent Qualified Code(s): J41.1 - Mucopurulent chronic bronchitis (7) HTN (hypertension) Status: Chronic Qualifiers: Hypertension type: essential hypertension Qualified Code(s): I10 - Essential (primary) hypertension
--- NOTE | 2020-01-08 10:48 | PCM.PROG ---
Progress Note - Progress Note for Day of Date of Exam: 01/08/20 - Subjective Subjective: IS BEING TREATED FOR PNEUMONIA DUE TO COVID-19 AND HYPOXIA. TODAY, SHE IS LYING IN BED WITH EYES CLOSED ON MORNING ROUNDS. SHE AWAKENS AND RESPONDS TO VERBAL STIMULI. SHE IS CURRENTLY UTILIZING HEATED HIGH FLOW OXYGEN. SHE CONTINUES WITH SHORTNESS OF BREATH AND WEAKNESS TODAY. SHE R EPORTS SLIGHT INCREASE IN SHORTNESS OF BREATH TODAY. ON EXAMINATION, HEART IS REGULAR IN RATE AND RHYTHM. BILATERAL LUNGS ARE NOTED WITH DIMINISHED LUNG SOUNDS THROUGHOUT. ABDOMEN IS ROUND, SOFT, AND NON-TENDER WITH NORMAL BOWEL SOUNDS NOTED IN ALL QUADRANTS. HER VITALS THIS MORNING ARE: 98.2-90-24-86%HHF- 148/71. LABS WERE OBTAINED. ABNORMAL LAB VALUES INCLUDE THE FOLLOWING: RBC 2.97, HGB 9.0, HCT 27.7, PLT COUNT 120, CARBON DIOXIDE 38.4, BUN 31, GLUCOSE 119, TOTAL BILI 1.10, TOTAL PROTEIN 6.0, GLOBULIN 1.8. AN ABG WAS OBTAINED THIS MORNING AND REVEALED: PH 7.430, PC02 58, P02 60, HC03 38.5, 02 SAT 91, BASE EXCESS 12, FI02 49. A CHEST XRAY WAS OBTAINED AND REVEALED: Slight interval improvement in aeration of the lungs with no new abnormality demonstrated. SHE IS CURRENTLY RECEIVING 1/2NS AT 30 ML/HR, ALBUMIN 25% IV DAILY, INVANZ 1G IV DAILY, VANCOMYCIN 750G IV Q12H, ZINC SULFATE 220MG PO DAILY, ROBITUSSIN DM 10ML PO QID, DUONEBS QID, PULMICORT NEBS BID, MUCOMYST IN [facility] [place], AND SOLU-MEDROL 80MG IV Q8H, AND HER HOME MEDICATIONS WERE RESUMED. SHE HAS RECEIVED ONE UNIT OF CONVALESCENT PLASMA SINCE ADMISSION. WE WILL INCREASE SOLU-MEDROL TO 80MG IV Q6H TODAY. OTHERWISE, WE PLAN TO FOLLOW UP WITH AM LABS, CHEST XRAY, AND ABG AND CONTINUE TO MONITOR. - Past Medical Family Social History Past Med/Fam/Surg Hx: No changes since H&P Allergies: Allergies codeine Allergy (Verified 02/06/17 22:08) hydromorphone [From Dilaudid] Allergy (Verified 02/06/17 22:08) influenza virus vaccine qs 0738-0820 (36 mos, up) [From Single Use EZ Flu] Allergy (Verified 03/24/17 18:04) meperidine [From Demerol] Allergy (Verified 02/06/17 22:08) prednisone Allergy (Verified 02/06/17 22:08) - Review of Systems ROS: No change since H&P - Vital Signs and I&O's Vital Signs: Temperature 98.2 F Pulse Rate [Brachial] 90 Pulse Rate 80 Respiratory Rate 20 Blood Pressure [Left Arm] 148/71 Blood Pressure 158/70 O2 Sat by Pulse Oximetry 92 Intake and Output: Intake & Output 01/05/20 01/06/20 01/07/20 01/08/20 11:59 11:59 11:59 11:59 Intake Total 2190 / 2190 2320 / 2320 1901 / 1901 2244 / 2244 Output Total 1949 / 1949 1800 / 1800 1999 / 1999 2124 / 2124 Balance 240 / 240 520 / 520 -99 / -99 119 / 119 - Physical Exam Oriented: Normal Eyes: Normal Ear: Normal Nose: Normal Throat: Normal Respiratory: Generalized, Diminished Cardiovascular: Normal : Normal Auscultation: Bowel Sounds: Normal Palpation: Normal Tenderness: Normal Skin: Normal Musculoskeletal: Normal Psychiatric: Normal Mood Description: Calm Affect: Normal Speech Pattern: Clear, Appropriate - Laboratory and Diagnostics Result Diagrams: 01/08/20 05:29 01/08/20 10:02 Labs: 12/17/19 15:03 Blood Blood Culture - Final 12/17/19 15:00 Blood Blood Culture - Final 12/17/19 16:30 Sputum - Expectorated Sputum Sputum Culture - Final Escherichia Coli Methicillin Resis Staph Aureus 12/17/19 16:30 Sputum - Expectorated Sputum - Final Laboratory WBC 9.7 X10^3/uL (3.6-10.0) 01/08/20 05:29 RBC 2.97 X10^6/uL (3.5-5.4) L 01/08/20 05:29 Hgb 9.0 g/dL (12.0-16.0) L 01/08/20 05:29 Hct 27.7 % (36.0-47.0) L 01/08/20 05:29 MCV 93.3 fL (80.0-100.0) 01/08/20 05:29 MCH 30.5 pg (27.0-34.0) 01/08/20 05:29 MCHC 32.7 g/dL (33.0-35.0) L 01/08/20 05:29 RDW 16.1 % (11.6-16.5) 01/08/20 05:29 Plt Count 120 X10^3/uL (150.0-450.0) L 01/08/20 05:29 Plt Count Comment Decreased (ADEQUATE) A 01/08/20 05: MPV 8.1 fL (7.4-11.0) 01/08/20 05:29 Neut % (Auto) 90.8 % (42.0-75.0) H 01/08/20 05:29 Lymph % (Auto) 3.6 % (21.0-51.0) L 01/08/20 05:29 [place] % (Auto) 5.4 % (0.0-13.0) 01/08/20 05:29 Eos % (Auto) 0.0 % (0.9-2.9) L 01/08/20 05:29 Baso % (Auto) 0.2 % (0.2-1.0) 01/08/20 05:29 Neut # (Auto) 8.8 x10^3/uL (2.2-4.8) H 01/08/20 05:29 Lymph # (Auto) 0.3 X10^3/uL (1.3-2.9) L 01/08/20 05:29 [place] # (Auto) 0.5 x10^3/uL (0.3-0.8) 01/08/20 05:29 Eos # (Auto) 0.0 x10^3/uL (0.0-0.2) 01/08/20 05:29 Baso # (Auto) 0.0 X10^3/uL (0.0-0.1) 01/08/20 05:29 Absolute Nucleated RBC 0.1 /100WBC 01/08/20 05:29 Total Counted 100 01/08/20 05:29 Neutrophils % (Manual) 90 % (39-76) H 01/08/20 05:29 Band Neutrophils % 4 % (0-10) 01/08/20 05:29 Lymphocytes % (Manual) 4 % (13-43) L 01/08/20 05:29 Monocytes % (Manual) 2 % (4-9) L 01/08/20 05:29 Plt Morphology Comment Normal (NORMAL) 01/08/20 05:29 RBC Morphology Normal (NORMAL) 01/08/20 05:29 Hypochromasia 1+ A 01/06/20 04:26 Anisocytosis Slight A 01/05/20 04:08 PT 14.2 SECONDS (11.8-14.3) 01/01/20 11:52 INR Target Range - 01/01/20 11:52 INR 1.13 (0.8-1.3) 01/01/20 11:52 APTT 20.0 SECONDS (22.9-36.5) L 01/01/20 11:52 PTT Comment - 01/01/20 11:52 Sample Site Lr 01/08/20 05:00 ABG pH 7.430 (7.35-7.45) 01/08/20 05:00 ABG pCO2 58.0 mmHg (35.0-45.0) H* 01/08/20 05:00 ABG pO2 60.0 mmHg (80.0-100.0) L 01/08/20 05:00 ABG HCO3 38.5 mmol/L (22-26) H* 01/08/20 05:00 ABG O2 Saturation 91.0 % (90-100) 01/08/20 05:00 ABG Base Excess 12.0 mmol/L (-2.0-2.0) H 01/08/20 05:00 [place] Test Pos 01/08/20 05:00 A-a Gradient 217.0 mmHg 01/08/20 05:00 FiO2 49 01/08/20 05:00 Blood Gas Comments Quinten well 01/08/20 05:00 Sodium 139 mmol/L (136-145) 01/08/20 05:29 Corrected Sodium 139 mmol/L (136-145) 01/08/20 05:29 Potassium 4.0 mmol/L (3.5-5.1) 01/08/20 05:29 Chloride 98 mmol/L (98-107) 01/08/20 05:29 Carbon Dioxide 38.4 mmol/L (21-32) H 01/08/20 05:29 BUN 31 mg/dL (7-18) H 01/08/20 05:29 Creatinine 0.74 mg/dL (0.55-1.02) 01/08/20 10:02 Est GFR (MDRD) Af Amer > 60 (>60) 01/08/20 05:29 Est GFR (MDRD) Non-Af > 60 (>60) 01/08/20 05:29 Glucose 119 mg/dL (65-99) H 01/08/20 05:29 Calcium 8.5 mg/dL (8.5-10.1) 01/08/20 05:29 Corrected Calcium TNP 01/08/20 05:29 Ferritin 145 ng/mL (8-252) 01/06/20 04:26 Total Bilirubin 1.10 mg/dL (0.2-1.0) H 01/08/20 05:29 AST 16 Units/L (15-37) 01/08/20 05:29 ALT 38 Units/L (12-78) 01/08/20 05:29 Alkaline Phosphatase 73 Units/L (46-116) 01/08/20 05:29 C-Reactive Protein < 0.50 mg/L (0-3.0) 01/06/20 04:26 Total Protein 6.0 g/dL (6.4-8.2) L 01/08/20 05:29 Albumin 4.2 g/dL (3.4-5.0) 01/08/20 05:29 Globulin 1.8 g/dL (2.5-4.5) L 01/08/20 05:29 Albumin/Globulin Ratio 2.3 Ratio (1.1-2.1) H 01/08/20 05:29 Specimen Type Catherized urine 12/18/19 11:45 Urine Color Pale yellow (YELLOW) 12/18/19 11:45 Urine Appearance Clear (CLEAR) 12/18/19 11:45 Urine pH 6.0 (5.0 - 8.0) 12/18/19 11:45 Ur Specific [place] 1.015 (1.000-1.030) 12/18/19 11:45 Urine Protein 3+ (NEGATIVE) 12/18/19 11:45 Urine Glucose (UA) Negative (NEGATIVE) 12/18/19 11:45 Urine Ketones 3+ (NEGATIVE) 12/18/19 11:45 Urine Occult Blood 2+ (NEGATIVE) 12/18/19 11:45 Urine Nitrite Negative (NEGATIVE) 12/18/19 11:45 Urine Bilirubin Negative (NEGATIVE) 12/18/19 11:45 Urine Urobilinogen Normal (NORMAL) 12/18/19 11:45 Ur Leukocyte Esterase Negative (NEGATIVE) 12/18/19 11:45 Urine RBC 0-2 /HPF (0-3) 12/18/19 11:45 Urine WBC None seen /HPF (0-5) 12/18/19 11:45 Ur Squamous Epith Cells Negative /HPF (NEGATIVE) 12/18/19 11:45 Amorphous Sediment Trace /HPF (NEGATIVE) 12/18/19 11:45 Urine Bacteria Negative /HPF (NEGATIVE) 12/18/19 11:45 Granular Casts Rare /LPF (NEGATIVE) 12/18/19 11:45 Urine Mucus Few /HPF (NEGATIVE) 12/18/19 11:45 Ur Culture Indicated? No/not indicated 12/18/19 11:45 Vancomycin Trough 17.6 ug/mL (15-20) 01/08/20 10:02 Random Vancomycin 19.5 ug/mL 01/03/20 09:14 Miscellaneous Test Covid 19 01/03/20 14:25 Blood Type O POSITIVE 01/04/20 09:01 Antibody Screen Cancelled 01/04/20 09:01 - Plan (1) COVID-19 Status: Acute Plan: 1/2NS AT 30 ML/HR, INVANZ 1G IV DAILY, VANCOMYCIN 750 MG IV Q12H, ZINC SULFATE 220MG PO DAILY, ROBITUSSIN DM 10ML PO QID, DUONEBS QID, PULMICORT NEBS BID, MUCOMYST IN [place], AND SOLU-MEDROL 80MG IV Q6H. (2) Pneumonia Status: Acute Qualifiers: Pneumonia type: due to methicillin-resistant Staphylococcus aureus (MRSA) Laterality: bilateral Lung location: lower lobe of lung Qualified Code(s): J15.212 - Pneumonia due to Methicillin resistant Staphylococcus aureus (3) Coronary artery disease Status: Chronic Qualifiers: Coronary Disease-Associated Artery/Lesion type: [place] artery [place] vs. transplanted heart: [place] heart Associated angina: with stable angina Qualified Code(s): I25.118 - Atherosclerotic heart disease of [place] coronary artery with other forms of angina pectoris (4) Dyslipidemia Status: Chronic (5) GERD (gastroesophageal reflux disease) Status: Chronic Qualifiers: Esophagitis presence: esophagitis presence not specified (6) COPD (chronic obstructive pulmonary disease) Status: Chronic Qualifiers: COPD type: chronic bronchitis Chronic bronchitis type: mucopurulent Qualified Code(s): J41.1 - Mucopurulent chronic bronchitis (7) HTN (hypertension) Status: Chronic Qualifiers: Hypertension type: essential hypertension Qualified Code(s): I10 - Essential (primary) hypertension
[2020-01-08] MEDS: CRESTOR TAB 10 MG PO SCH (21:31)
[2020-01-08] MEDS: KLONOPIN TAB 1 MG PO SCH (21:31)
[2020-01-08] MEDS: MUCINEX EXPECTORANT PO SCH (21:32)
[2020-01-08] MEDS: XARELTO PO SCH (21:33)
[2020-01-09] MEDS: SOLU-Medrol 40 MG VIAL IVP SCH ×4 (05:00→21:47)
[2020-01-09 06:19] LABS: BASOPHILS % (AUTO) 0.1 % (0.2-1.0); HEMATOCRIT 24.1 % (36.0-47.0); LYMPHOCYTES # (AUTO) 0.2 X10^3/uL (1.3-2.9); LYMPHOCYTES % (AUTO) 2.5 % (21.0-51.0); MEAN CORPUSCULAR HEMOGLOBIN 30.9 pg (27.0-34.0); MEAN CORPUSCULAR VOLUME 93.7 fL (80.0-100.0); MEAN PLATELET VOLUME 7.8 fL (7.4-11.0); MONOCYTES # (AUTO) 0.3 x10^3/uL (0.3-0.8); MONOCYTES % (AUTO) 3.5 % (0.0-13.0); NEUTROPHILS # (AUTO) 7.4 x10^3/uL (2.2-4.8); NEUTROPHILS % (AUTO) 93.9 % (42.0-75.0); PLATELET COUNT 109 X10^3/uL (150.0-450.0); RED BLOOD COUNT 2.58 X10^6/uL (3.5-5.4); RED CELL DISTRIBUTION WIDTH 16.4 % (11.6-16.5); WHITE BLOOD COUNT 7.9 X10^3/uL (3.6-10.0)
[2020-01-09 06:32] LABS: ALANINE AMINOTRANSFERASE 32 Units/L (12-78); ALKALINE PHOSPHATASE 66 Units/L (46-116); ASPARTATE AMINO TRANSFERASE 10 Units/L (15-37); BLOOD UREA NITROGEN 23 mg/dL (7-18); CALCIUM 8.6 mg/dL (8.5-10.1); CARBON DIOXIDE 39.9 mmol/L (21-32); CHLORIDE 101 mmol/L (98-107); COR NA(FOR HYPERGLY) 139 mmol/L (136-145); CREATININE 0.67 mg/dL (0.55-1.02); SODIUM 138 mmol/L (136-145); TOTAL PROTEIN 5.7 g/dL (6.4-8.2); eGFR NON BLACK RACES > 60 (>60)
[2020-01-09 06:59] LABS: BAND NEUTROPHILS % 6 % (0-10); PLATELET MORPHOLOGY COMMENT NORMAL (NORMAL)
--- NOTE | 2020-01-09 07:08 | RAD ---
HISTORYFollow-up COVID-19STUDYChest AP [id number] heart remains enlarged. Diffuse bilateral interstitial and ground-glass infiltrates are unchanged. No pleural effusions are identified. Bony thorax is unremarkable with the exception of a right shoulder hemiarthroplasty.IMPRESSIONNo significant change when compared to the prior examinationElectronically signed by: MARY ELLEN CORRAL (Jan 09, 2020 07:08:38)
[2020-01-09] MEDS: PULMICORT NEB TX 0.5 MG NEB SCH ×2 (08:55→21:35)
[2020-01-09] MEDS: MUCOMYST (RESPIRATORY USE ONLY) NEB SCH ×2 (08:55→21:35)
[2020-01-09] MEDS: DUONEB 0.5 MG/3 MG (3 mL) NEB SCH ×4 (08:55→21:35)
[2020-01-09] MEDS: NORCO 7.5/325 MG TAB PO SCH ×3 (09:14→21:46)
[2020-01-09] MEDS: NEURONTIN CAP 300 MG PO SCH ×3 (09:14→21:47)
[2020-01-09] MEDS: ALBUMIN HUMAN 25%- 100 ML 100 ML IV SCH (09:14)
[2020-01-09] MEDS: VSL#3 PO SCH (09:15)
[2020-01-09] MEDS: ZINC SULFATE PO SCH (09:16)
[2020-01-09] MEDS: VITAMIN D3 125 mcg (5,000 UNITS) PO SCH (09:16)
[2020-01-09] MEDS: THEO-DUR TAB 200 MG 12-HR PO SCH ×2 (09:16→21:47)
[2020-01-09] MEDS: ROBITUSSIN DM PO SCH ×4 (09:17→21:46)
[2020-01-09] MEDS: VITAMIN C PO SCH (09:17)
[2020-01-09] MEDS: CELEBREX PO SCH (09:18)
[2020-01-09] MEDS: FOLIC ACID TAB 1 MG PO SCH (09:18)
[2020-01-09] MEDS: CITRACAL + VITAMIN D PO SCH ×2 (09:18→21:45)
[2020-01-09] MEDS: FERROUS GLUCONATE PO SCH (09:18)
[2020-01-09] MEDS: COREG TAB 12.5 MG PO SCH ×2 (09:19→21:45)
[2020-01-09] MEDS: TAB-A-VITE PO SCH (09:19)
[2020-01-09] MEDS: SINGULAIR TAB 10 MG PO SCH (09:20)
[2020-01-09] MEDS: NexIUM PO SCH (09:20)
[2020-01-09] MEDS: CLARITIN PO SCH (09:20)
[2020-01-09] MEDS: PROzac PO SCH (09:21)
[2020-01-09] MEDS: POTASSIUM CHLORIDE LIQ 20 MEQ UDC PO SCH (09:21)
[2020-01-09] MEDS: COLACE CAP 100 MG PO SCH ×2 (09:48→21:45)
[2020-01-09] MEDS: INVANZ INJ 1 GM VIAL 1 GM in NS 100 ML IV + SPIKE MINIBAG* 100 ML IV SCH (10:20)
[2020-01-09] MEDS: NS 1/2 1000 ML IV 1,000 ML IV SCH ×2 (10:27→23:59)
[2020-01-09] MEDS: VANCOMYCIN HCL 1 G in D5W 250 ML IV 250 ML IV SCH ×2 (11:42→21:47)
[2020-01-09] MEDS ORDERED: NS 1/2 1000 ML IV 1,000 ML IV ONE (19:41)
[2020-01-09] MEDS: CRESTOR TAB 10 MG PO SCH (21:46)
[2020-01-09] MEDS: KLONOPIN TAB 1 MG PO SCH (21:46)
[2020-01-09] MEDS: MUCINEX EXPECTORANT PO SCH (21:46)
[2020-01-09] MEDS: XARELTO PO SCH (21:47)
--- NOTE | 2020-01-09 23:09 | PCM.PROG ---
Progress Note - Progress Note for Day of Date of Exam: 01/09/20 - Subjective Subjective: IS BEING TREATED FOR PNEUMONIA DUE TO COVID-19 AND HYPOXIA. TODAY, SHE IS LYING IN BED WITH EYES CLOSED ON MORNING ROUNDS. SHE AWAKENS AND RESPONDS TO VERBAL STIMULI. SHE IS CURRENTLY UTILIZING HEATED HIGH FLOW OXYGEN. SHE CONTINUES WITH SHORTNESS OF BREATH AND WEAKNESS TODAY, BUT C ONTINUES TO REPORT IMPROVEMENT. ON EXAMINATION, HEART IS REGULAR IN RATE AND RHYTHM. BILATERAL LUNGS ARE NOTED WITH DIMINISHED LUNG SOUNDS THROUGHOUT. ABDOMEN IS ROUND, SOFT, AND NON-TENDER WITH NORMAL BOWEL SOUNDS NOTED IN ALL QUADRANTS. HER VITALS THIS MORNING ARE: 98.2-85-24-92%HHF-167/81. LABS WERE OBTAINED. ABNORMAL LAB VALUES INCLUDE THE FOLLOWING: RBC 2.58, HGB 8.0, HCT 24.1, PLT COUNT 109, CARBON DIOXIDE 39.9, BUN 23, GLUCOSE 141, AST 10, TOTAL PROTEIN 5.7, ALBUMIN 1.7. A CHEST XRAY WAS OBTAINED AND REVEALED: No significant change when compared to the prior examination. SHE IS CURRENTLY RECEIVING 1/2NS AT 30 ML/HR, ALBUMIN 25% IV DAILY, INVANZ 1G IV DAILY, VANCOMYCIN 750G IV Q12H, ZINC SULFATE 220MG PO DAILY, ROBITUSSIN DM 10ML PO QID, DUONEBS QID, PULMICORT NEBS BID, MUCOMYST IN [facility] [place], AND SOLU-MEDROL 80MG IV Q6H, AND HER HOME MEDICATIONS WERE RESUMED. SHE HAS RECEIVED ONE UNIT OF CONVALESCENT PLASMA SINCE ADMISSION. WE WILL CONTINUE WITH CURRENT PLAN OF CARE TODAY. OTHERWISE, WE PLAN TO FOLLOW UP WITH AM LABS, CHEST XRAY, AND ABG AND CONTINUE TO MONITOR. - Past Medical Family Social History Past Med/Fam/Surg Hx: No changes since H&P Allergies: Allergies codeine Allergy (Verified 02/06/17 22:08) hydromorphone [From Dilaudid] Allergy (Verified 02/06/17 22:08) influenza virus vaccine qs 0082-9987 (36 mos, up) [From Single Use EZ Flu] Allergy (Verified 03/24/17 18:04) meperidine [From Demerol] Allergy (Verified 02/06/17 22:08) prednisone Allergy (Verified 02/06/17 22:08) - Review of Systems ROS: No change since H&P - Vital Signs and I&O's Vital Signs: Temperature 98.0 F Pulse Rate [Brachial] 82 Pulse Rate 97 Respiratory Rate 20 Blood Pressure [Left Arm] 151/65 Blood Pressure 131/60 O2 Sat by Pulse Oximetry 96 Intake and Output: Intake & Output 01/07/20 01/08/20 01/09/20 01/10/20 11:59 11:59 11:59 11:59 Intake Total 190 / 1901 2244 / 2244 2062 / 206 1300 / 1300 Output Total 1999 / 2124 1375 / 1375 625 / 625 Balance -99 / -99 119 / 119 688 / 688 675 / 675 - Physical Exam Oriented: Normal Eyes: Normal Ear: Normal Nose: Normal Throat: Normal Respiratory: Generalized, Diminished Cardiovascular: Normal : Normal Auscultation: Bowel Sounds: Normal Tenderness: Normal Skin: Normal Musculoskeletal: Normal Psychiatric: Normal Mood Description: Calm Affect: Normal Speech Pattern: Clear, Appropriate - Laboratory and Diagnostics Result Diagrams: 01/09/20 05:00 01/09/20 05:00 Labs: 12/17/19 15:03 Blood Blood Culture - Final 12/17/19 15:00 Blood Blood Culture - Final 12/17/19 16:30 Sputum - Expectorated Sputum Sputum Culture - Final Escherichia Coli Methicillin Resis Staph Aureus 12/17/19 16:30 Sputum - Expectorated Sputum - Final Laboratory WBC 7.9 X10^3/uL (3.6-10.0) 01/09/20 05:00 RBC 2.58 X10^6/uL (3.5-5.4) L 01/09/20 05:00 Hgb 8.0 g/dL (12.0-16.0) L 01/09/20 05:00 Hct 24.1 % (36.0-47.0) L 01/09/20 05:00 MCV 93.7 fL (80.0-100.0) 01/09/20 05:00 MCH 30.9 pg (27.0-34.0) 01/09/20 05:00 MCHC 33.0 g/dL (33.0-35.0) 01/09/20 05:00 RDW 16.4 % (11.6-16.5) 01/09/20 05:00 Plt Count 109 X10^3/uL (150.0-450.0) L 01/09/20 05:00 Plt Count Comment Decreased (ADEQUATE) A 01/09/20 05:00 MPV 7.8 fL (7.4-11.0) 01/09/20 05:00 Neut % (Auto) 93.9 % (42.0-75.0) H 01/09/20 05:00 Lymph % (Auto) 2.5 % (21.0-51.0) L 01/09/20 05:00 [place] % (Auto) 3.5 % (0.0-13.0) 01/09/20 05:00 Eos % (Auto) 0.0 % (0.9-2.9) L 01/09/20 05:00 Baso % (Auto) 0.1 % (0.2-1.0) L 01/09/20 05:00 Neut # (Auto) 7.4 x10^3/uL (2.2-4.8) H 01/09/20 05:00 Lymph # (Auto) 0.2 X10^3/uL (1.3-2.9) L 01/09/20 05:00 [place] # (Auto) 0.3 x10^3/uL (0.3-0.8) 01/09/20 05:00 Eos # (Auto) 0.0 x10^3/uL (0.0-0.2) 01/09/20 05:00 Baso # (Auto) 0.0 X10^3/uL (0.0-0.1) 01/09/20 05:00 Absolute Nucleated RBC 0.0 /100WBC 01/09/20 05:00 Total Counted 100 01/09/20 05:00 Neutrophils % (Manual) 84 % (39-76) H 01/09/20 05:00 Band Neutrophils % 6 % (0-10) 01/09/20 05:00 Lymphocytes % (Manual) 7 % (13-43) L 01/09/20 05:00 Monocytes % (Manual) 3 % (4-9) L 01/09/20 05:00 Plt Morphology Comment Normal (NORMAL) 01/09/20 05:00 RBC Morphology Normal (NORMAL) 01/09/20 05:00 Hypochromasia 1+ A 01/06/20 04:26 Anisocytosis Slight A 01/05/20 04:08 PT 14.2 SECONDS (11.8-14.3) 01/01/20 11:52 INR Target Range - 01/01/20 11:52 INR 1.13 (0.8-1.3) 01/01/20 11:52 APTT 20.0 SECONDS (22.9-36.5) L 01/01/20 11:52 PTT Comment - 01/01/20 11:52 Sample Site Lr 01/08/20 05:00 ABG pH 7.430 (7.35-7.45) 01/08/20 05:00 ABG pCO2 58.0 mmHg (35.0-45.0) H* 01/08/20 05:00 ABG pO2 60.0 mmHg (80.0-100.0) L 01/08/20 05:00 ABG HCO3 38.5 mmol/L (22-26) H* 01/08/20 05:00 ABG O2 Saturation 91.0 % (90-100) 01/08/20 05:00 ABG Base Excess 12.0 mmol/L (-2.0-2.0) H 01/08/20 05:00 [place] Test Pos 01/08/20 05:00 A-a Gradient 217.0 mmHg 01/08/20 05:00 FiO2 49 01/08/20 05:00 Blood Gas Comments Quint[place] well 01/08/20 05:00 Sodium 138 mmol/L (136-145) 01/09/20 05:00 Corrected Sodium 139 mmol/L (136-145) 01/09/20 05:00 Potassium 4.9 mmol/L (3.5-5.1) 01/09/20 05:00 Chloride 101 mmol/L (98-107) 01/09/20 05:00 Carbon Dioxide 39.9 mmol/L (21-32) H 01/09/20 05:00 BUN 23 mg/dL (7-18) H 01/09/20 05:00 Creatinine 0.67 mg/dL (0.55-1.02) 01/09/20 05:00 Est GFR (MDRD) Af Amer > 60 (>60) 01/09/20 05:00 Est GFR (MDRD) Non-Af > 60 (>60) 01/09/20 05:00 Glucose 141 mg/dL (65-99) H 01/09/20 05:00 Calcium 8.6 mg/dL (8.5-10.1) 01/09/20 05:00 Corrected Calcium TNP 01/09/20 05:00 Ferritin 145 ng/mL (8-252) 01/06/20 04:26 Total Bilirubin 0.80 mg/dL (0.2-1.0) 01/09/20 05:00 AST 10 Units/L (15-37) L 01/09/20 05:00 ALT 32 Units/L (12-78) 01/09/20 05:00 Alkaline Phosphatase 66 Units/L (46-116) 01/09/20 05:00 C-Reactive Protein < 0.50 mg/L (0-3.0) 01/06/20 04:26 Total Protein 5.7 g/dL (6.4-8.2) L 01/09/20 05:00 Albumin 4.0 g/dL (3.4-5.0) 01/09/20 05:00 Globulin 1.7 g/dL (2.5-4.5) L 01/09/20 05:00 Albumin/Globulin Ratio 2.4 Ratio (1.1-2.1) H 01/09/20 05:00 Specimen Type Catherized urine 12/18/19 11:45 Urine Color Pale yellow (YELLOW) 12/18/19 11:45 Urine Appearance Clear (CLEAR) 12/18/19 11:45 Urine pH 6.0 (5.0 - 8.0) 12/18/19 11:45 Ur Specific [place] 1.015 (1.000-1.030) 12/18/19 11:45 Urine Protein 3+ (NEGATIVE) 12/18/19 11:45 Urine Glucose (UA) Negative (NEGATIVE) 12/18/19 11:45 Urine Ketones 3+ (NEGATIVE) 12/18/19 11:45 Urine Occult Blood 2+ (NEGATIVE) 12/18/19 11:45 Urine Nitrite Negative (NEGATIVE) 12/18/19 11:45 Urine Bilirubin Negative (NEGATIVE) 12/18/19 11:45 Urine Urobilinogen Normal (NORMAL) 12/18/19 11:45 Ur Leukocyte Esterase Negative (NEGATIVE) 12/18/19 11:45 Urine RBC 0-2 /HPF (0-3) 12/18/19 11:45 Urine WBC None seen /HPF (0-5) 12/18/19 11:45 Ur Squamous Epith Cells Negative /HPF (NEGATIVE) 12/18/19 11:45 Amorphous Sediment Trace /HPF (NEGATIVE) 12/18/19 11:45 Urine Bacteria Negative /HPF (NEGATIVE) 12/18/19 11:45 Granular Casts Rare /LPF (NEGATIVE) 12/18/19 11:45 Urine Mucus Few /HPF (NEGATIVE) 12/18/19 11:45 Ur Culture Indicated? No/not indicated 12/18/19 11:45 Vancomycin Trough 17.6 ug/mL (15-20) 01/08/20 10:02 Random Vancomycin 19.5 ug/mL 01/03/20 09:14 Miscellaneous Test Covid 19 01/03/20 14:25 Blood Type O POSITIVE 01/04/20 09:01 Antibody Screen Cancelled 01/04/20 09:01 - Plan (1) COVID-19 Status: Acute Plan: 1/2NS AT 30 ML/HR, INVANZ 1G IV DAILY, VANCOMYCIN 750 MG IV Q12H, ZINC SULFATE 220MG PO DAILY, ROBITUSSIN DM 10ML PO QID, DUONEBS QID, PULMICORT NEBS BID, MUCOMYST IN [place], AND SOLU-MEDROL 80MG IV Q6H. (2) Pneumonia Status: Acute Qualifiers: Pneumonia type: due to methicillin-resistant Staphylococcus aureus (MRSA) Laterality: bilateral Lung location: lower lobe of lung Qualified Code(s): J15.212 - Pneumonia due to Methicillin resistant Staphylococcus aureus (3) Coronary artery disease Status: Chronic Qualifiers: Coronary Disease-Associated Artery/Lesion type: [place] artery [place] vs. transplanted heart: [place] heart Associated angina: with stable angina Qualified Code(s): I25.118 - Atherosclerotic heart disease of [place] coronary artery with other forms of angina pectoris (4) Dyslipidemia Status: Chronic (5) GERD (gastroesophageal reflux disease) Status: Chronic Qualifiers: Esophagitis presence: esophagitis presence not specified (6) COPD (chronic obstructive pulmonary disease) Status: Chronic Qualifiers: COPD type: chronic bronchitis Chronic bronchitis type: mucopurulent Qualified Code(s): J41.1 - Mucopurulent chronic bronchitis (7) HTN (hypertension) Status: Chronic Qualifiers: Hypertension type: essential hypertension Qualified Code(s): I10 - Essential (primary) hypertension
[2020-01-10] MEDS: SOLU-Medrol 40 MG VIAL IVP SCH ×4 (04:48→21:40)
[2020-01-10 05:54] LABS: ABG BASE EXCESS 12.8 mmol/L (-2.0-2.0)
[2020-01-10 05:55] LABS: ABG ALLEN TEST POS; ABG HCO3 40.8 mmol/L (22-26)
[2020-01-10 06:32] LABS: ALANINE AMINOTRANSFERASE 38 Units/L (12-78); ALKALINE PHOSPHATASE 65 Units/L (46-116); ASPARTATE AMINO TRANSFERASE 15 Units/L (15-37); BLOOD UREA NITROGEN 27 mg/dL (7-18); CALCIUM 8.6 mg/dL (8.5-10.1); CARBON DIOXIDE 36.6 mmol/L (21-32); CHLORIDE 101 mmol/L (98-107); COR NA(FOR HYPERGLY) 140 mmol/L (136-145); CREATININE 0.68 mg/dL (0.55-1.02); SODIUM 139 mmol/L (136-145); TOTAL PROTEIN 5.7 g/dL (6.4-8.2); eGFR NON BLACK RACES > 60 (>60)
[2020-01-10 06:47] LABS: BASOPHILS % (AUTO) 0.1 % (0.2-1.0); HEMATOCRIT 24.1 % (36.0-47.0); HEMOGLOBIN 7.8 g/dL (12.0-16.0); LYMPHOCYTES # (AUTO) 0.2 X10^3/uL (1.3-2.9); LYMPHOCYTES % (AUTO) 3.1 % (21.0-51.0); MEAN CORPUSCULAR HEMOGLOBIN 30.5 pg (27.0-34.0); MEAN CORPUSCULAR HGB CONC 32.3 g/dL (33.0-35.0); MEAN CORPUSCULAR VOLUME 94.6 fL (80.0-100.0); MEAN PLATELET VOLUME 7.8 fL (7.4-11.0); MONOCYTES # (AUTO) 0.5 x10^3/uL (0.3-0.8); MONOCYTES % (AUTO) 7.3 % (0.0-13.0); NEUTROPHILS # (AUTO) 5.6 x10^3/uL (2.2-4.8); NEUTROPHILS % (AUTO) 89.5 % (42.0-75.0); PLATELET COUNT 115 X10^3/uL (150.0-450.0); RED BLOOD COUNT 2.55 X10^6/uL (3.5-5.4); RED CELL DISTRIBUTION WIDTH 17.4 % (11.6-16.5); WHITE BLOOD COUNT 6.3 X10^3/uL (3.6-10.0)
[2020-01-10 08:06] LABS: HYPOCHROMASIA SLIGHT; PLATELET MORPHOLOGY COMMENT NORMAL (NORMAL)
--- NOTE | 2020-01-10 08:07 | RAD ---
Chest AP portableIndication: Dyspnea. Pneumonia. COVID-19COMPARISONAugust 2019FINDINGSThere is no pneumothorax. Heart size is prominent. Small effusions are likely, perhaps increased from the prior. Monitor leads obscure minimal detail. Patchy bilateral pulmonary opacities are again notedIMPRESSIONProminent heart size and possibly worsening effusions with patchy pulmonary opacities suggesting viral pneumonitis. Given possible development of effusions, background of CHF may be developing.Electronically signed by: ELISABET STODDARD (Jan 10, 2020 08:06:43)
[2020-01-10] MEDS: DUONEB 0.5 MG/3 MG (3 mL) NEB SCH ×4 (08:50→21:41)
[2020-01-10] MEDS: MUCOMYST (RESPIRATORY USE ONLY) NEB SCH ×2 (08:50→21:41)
[2020-01-10] MEDS: PULMICORT NEB TX 0.5 MG NEB SCH ×2 (08:50→21:41)
[2020-01-10 09:27] LABS: CREATININE 0.7 mg/dL (0.55-1.02); VANCOMYCIN,TROUGH 19.8 ug/mL (15-20)
[2020-01-10] MEDS: ZINC SULFATE PO SCH (09:50)
[2020-01-10] MEDS: VSL#3 PO SCH (09:51)
[2020-01-10] MEDS: LASIX PO SCH (09:52)
[2020-01-10] MEDS: VITAMIN D3 125 mcg (5,000 UNITS) PO SCH (09:52)
[2020-01-10] MEDS: VITAMIN C PO SCH (09:53)
[2020-01-10] MEDS: TAB-A-VITE PO SCH (09:55)
[2020-01-10] MEDS: THEO-DUR TAB 200 MG 12-HR PO SCH ×2 (09:55→21:40)
[2020-01-10] MEDS: ROBITUSSIN DM PO SCH ×4 (09:55→21:40)
[2020-01-10] MEDS: PROzac PO SCH (09:56)
[2020-01-10] MEDS: SINGULAIR TAB 10 MG PO SCH (09:56)
[2020-01-10] MEDS: FOLIC ACID TAB 1 MG PO SCH (09:57)
[2020-01-10] MEDS: POTASSIUM CHLORIDE LIQ 20 MEQ UDC PO SCH (09:57)
[2020-01-10] MEDS: NexIUM PO SCH (09:57)
[2020-01-10] MEDS: COREG TAB 12.5 MG PO SCH ×2 (09:58→21:40)
[2020-01-10] MEDS: COLACE CAP 100 MG PO SCH ×2 (09:58→21:40)
[2020-01-10] MEDS: FERROUS GLUCONATE PO SCH (09:58)
[2020-01-10] MEDS: CLARITIN PO SCH (09:59)
[2020-01-10] MEDS: CITRACAL + VITAMIN D PO SCH ×2 (09:59→21:40)
[2020-01-10] MEDS: CELEBREX PO SCH (10:01)
[2020-01-10] MEDS: NORCO 7.5/325 MG TAB PO SCH ×3 (10:02→21:40)
[2020-01-10] MEDS: NEURONTIN CAP 300 MG PO SCH ×3 (10:02→21:40)
[2020-01-10] MEDS: ALBUMIN HUMAN 25%- 100 ML 100 ML IV SCH (10:03)
[2020-01-10] MEDS: INVANZ INJ 1 GM VIAL 1 GM in NS 100 ML IV + SPIKE MINIBAG* 100 ML IV SCH (11:00)
[2020-01-10] MEDS: VANCOMYCIN HCL 1 G in D5W 250 ML IV 250 ML IV SCH ×2 (12:10→21:40)
--- NOTE | 2020-01-10 12:35 | PCM.PROG ---
Progress Note - Progress Note for Day of Date of Exam: 01/10/20 - Subjective Subjective: IS BEING TREATED FOR PNEUMONIA DUE TO COVID-19 AND HYPOXIA. TODAY, SHE IS LYING IN BED WITH EYES CLOSED ON MORNING ROUNDS. SHE AWAKENS AND RESPONDS TO VERBAL STIMULI. SHE IS CURRENTLY UTILIZING HEATED HIGH FLOW OXYGEN. SHE CONTINUES WITH SHORTNESS OF BREATH AND WEAKNESS TODAY, BUT C ONTINUES TO REPORT IMPROVEMENT. ON EXAMINATION, HEART IS REGULAR IN RATE AND RHYTHM. BILATERAL LUNGS ARE NOTED WITH DIMINISHED LUNG SOUNDS THROUGHOUT. ABDOMEN IS ROUND, SOFT, AND NON-TENDER WITH NORMAL BOWEL SOUNDS NOTED IN ALL QUADRANTS. HER VITALS THIS MORNING ARE: 97.6-92-21-93%HHF-151/65. LABS WERE OBTAINED. ABNORMAL LAB VALUES INCLUDE THE FOLLOWING: RBC 2.55, HGB 7.8, HCT 24.1, PLT COUNT 115, CARBON DIOXIDE 36.6, BUN 27, GLUCOSE 150, TOTAL PROTEIN 5.7. AN ABG WAS OBTAINED THIS MORNING AND REVEALED: PH 7.380, PC02 69, P02 69, HC03 40.8, 02 SAT 93, BASE EXCESS 12.8, FI02 50. A CHEST XRAY WAS OBTAINED AND REVEALED: Prominent heart size and possibly worsening effusions with patchy pulmonary opacities suggesting viral pneumonitis. Given possible development of effusions, background of CHF may be developing. SHE IS CURRENTLY RECEIVING 1/2NS AT 30 ML/HR, ALBUMIN 25% IV DAILY, INVANZ 1G IV DAILY, VANCOMYCIN 750G IV Q12H, ZINC SULFATE 220MG PO DAILY, ROBITUSSIN DM 10ML PO QID, DUONEBS QID, PULMICORT NEBS BID, MUCOMYST IN [facility] [place], AND SOLU-MEDROL 80MG IV Q6H, AND HER HOME MEDICATIONS WERE RESUMED. SHE HAS RECEIVED ONE UNIT OF CONVALESCENT PLASMA SINCE ADMISSION. WE WILL CONTINUE WITH CURRENT PLAN OF CARE TODAY AND DISCONTINUE HER IV FLUIDS. OTHERWISE, WE PLAN TO FOLLOW UP WITH AM LABS, CHEST XRAY, AND ABG AND CONTINUE TO MONITOR. - Past Medical Family Social History Past Med/Fam/Surg Hx: No changes since H&P Allergies: Allergies codeine Allergy (Verified 02/06/17 22:08) hydromorphone [From Dilaudid] Allergy (Verified 02/06/17 22:08) influenza virus vaccine qs 7500-6137 (36 mos, up) [From Single Use EZ Flu] Al lergy (Verified 03/24/17 18:04) meperidine [From Demerol] Allergy (Verified 02/06/17 22:08) prednisone Allergy (Verified 02/06/17 22:08) - Review of Systems ROS: No change since H&P - Vital Signs and I&O's Vital Signs: Temperature 97.6 F Pulse Rate [Brachial] 78 Pulse Rate 92 Respiratory Rate 24 Blood Pressure [Left Arm] 151/65 Blood Pressure 131/60 O2 Sat by Pulse Oximetry 93 Intake and Output: Intake & Output 01/08/20 01/09/20 01/10/20 01/11/20 11:59 11:59 11:59 11:59 Intake Total 2244 / 2244 2063 / 2063 2130 / 2130 Output Total 2125 / 5 1375 / 1375 1075 / 1075 Balance 119 / 119 688 / 688 1055 / 1055 - Physical Exam Oriented: Normal Eyes: Normal Ear: Normal Nose: Normal Throat: Normal Respiratory: Generalized, Diminished Cardiovascular: Normal : Normal Auscultation: Bowel Sounds: Normal Tenderness: Normal Skin: Normal Musculoskeletal: Normal Psychiatric: Normal Mood Description: Calm Affect: Normal Speech Pattern: Clear, Appropriate - Laboratory and Diagnostics Result Diagrams: 01/10/20 05:10 01/10/20 08:45 Labs: 12/17/19 15:03 Blood Blood Culture - Final 12/17/19 15:00 Blood Blood Culture - Final 12/17/19 16:30 Sputum - Expectorated Sputum Sputum Culture - Final Escherichia Coli Methicillin Resis Staph Aureus 12/17/19 16:30 Sputum - Expectorated Sputum - Final Laboratory WBC 6.3 X10^3/uL (3.6-10.0) 01/10/20 05:10 RBC 2.55 X10^6/uL (3.5-5.4) L 01/10/20 05:10 Hgb 7.8 g/dL (12.0-16.0) L 01/10/20 05:10 Hct 24.1 % (36.0-47.0) L 01/10/20 05:10 MCV 94.6 fL (80.0-100.0) 01/10/20 05:10 MCH 30.5 pg (27.0-34.0) 01/10/20 05:10 MCHC 32.3 g/dL (33.0-35.0) L 01/10/20 05:10 RDW 17.4 % (11.6-16.5) H 01/10/20 05:10 Plt Count 115 X10^3/uL (150.0-450.0) L 01/10/20 05:10 Plt Count Comment Decreased (ADEQUATE) A 01/10/20 05:10 MPV 7.8 fL (7.4-11.0) 01/10/20 05:10 Neut % (Auto) 89.5 % (42.0-75.0) H 01/10/20 05:10 Lymph % (Auto) 3.1 % (21.0-51.0) L 01/10/20 05:10 [place] % (Auto) 7.3 % (0.0-13.0) 01/10/20 05:10 Eos % (Auto) 0.0 % (0.9-2.9) L 01/10/20 05:10 Baso % (Auto) 0.1 % (0.2-1.0) L 01/10/20 05:10 Neut # (Auto) 5.6 x10^3/uL (2.2-4.8) H 01/10/20 05:10 Lymph # (Auto) 0.2 X10^3/uL (1.3-2.9) L 01/10/20 05:10 [place] # (Auto) 0.5 x10^3/uL (0.3-0.8) 01/10/20 05:10 Eos # (Auto) 0.0 x10^3/uL (0.0-0.2) 01/10/20 05:10 Baso # (Auto) 0.0 X10^3/uL (0.0-0.1) 01/10/20 05:10 Absolute Nucleated RBC 0.2 /100WBC 01/10/20 05:10 Total Counted 100 01/09/20 05:00 Neutrophils % (Manual) 84 % (39-76) H 01/09/20 05:00 Band Neutrophils % 6 % (0-10) 01/09/20 05:00 Lymphocytes % (Manual) 7 % (13-43) L 01/09/20 05:00 Monocytes % (Manual) 3 % (4-9) L 01/09/20 05:00 Plt Morphology Comment Normal (NORMAL) 01/10/20 05:10 RBC Morphology Abnormal (NORMAL) A 01/10/20 05:10 Hypochromasia Slight A 01/10/20 05:10 Anisocytosis Slight A 01/05/20 04:08 PT 14.2 SECONDS (11.8-14.3) 01/01/20 11:52 INR Target Range - 01/01/20 11:52 INR 1.13 (0.8-1.3) 01/01/20 11:52 APTT 20.0 SECONDS (22.9-36.5) L 01/01/20 11:52 PTT Comment - 01/01/20 11:52 Sample Site Rrad 01/10/20 05:48 ABG pH 7.380 (7.35-7.45) 01/10/20 05:48 ABG pCO2 69.0 mmHg (35.0-45.0) H* 01/10/20 05:48 ABG pO2 69.0 mmHg (80.0-100.0) L 01/10/20 05:48 ABG HCO3 40.8 mmol/L (22-26) H* 01/10/20 05:48 ABG O2 Saturation 93.0 % (90-100) 01/10/20 05:48 ABG Base Excess 12.8 mmol/L (-2.0-2.0) H 01/10/20 05:48 [place] Test Pos 01/10/20 05:48 A-a Gradient 201.0 mmHg 01/10/20 05:48 FiO2 50.0 01/10/20 05:48 Blood Gas Comments Quinten abg well-mtf 01/10/20 05:48 Sodium 139 mmol/L (136-145) 01/10/20 05:10 Corrected Sodium 140 mmol/L (136-145) 01/10/20 05:10 Potassium 4.8 mmol/L (3.5-5.1) 01/10/20 05:10 Chloride 101 mmol/L (98-107) 01/10/20 05:10 Carbon Dioxide 36.6 mmol/L (21-32) H 01/10/20 05:10 BUN 27 mg/dL (7-18) H 01/10/20 05:10 Creatinine 0.70 mg/dL (0.55-1.02) 01/10/20 08:45 Est GFR (MDRD) Af Amer > 60 (>60) 01/10/20 05:10 Est GFR (MDRD) Non-Af > 60 (>60) 01/10/20 05:10 Glucose 150 mg/dL (65-99) H 01/10/20 05:10 Calcium 8.6 mg/dL (8.5-10.1) 01/10/20 05:10 Corrected Calcium TNP 01/10/20 05:10 Ferritin 145 ng/mL (8-252) 01/06/20 04:26 Total Bilirubin 0.70 mg/dL (0.2-1.0) 01/10/20 05:10 AST 15 Units/L (15-37) 01/10/20 05:10 ALT 38 Units/L (12-78) 01/10/20 05:10 Alkaline Phosphatase 65 Units/L (46-116) 01/10/20 05:10 C-Reactive Protein < 0.50 mg/L (0-3.0) 01/06/20 04:26 Total Protein 5.7 g/dL (6.4-8.2) L 01/10/20 05:10 Albumin 4.0 g/dL (3.4-5.0) 01/10/20 05:10 Globulin 1.7 g/dL (2.5-4.5) L 01/10/20 05:10 Albumin/Globulin Ratio 2.4 Ratio (1.1-2.1) H 01/10/20 05:10 Specimen Type Catherized urine 12/18/19 11:45 Urine Color Pale yellow (YELLOW) 12/18/19 11:45 Urine Appearance Clear (CLEAR) 12/18/19 11:45 Urine pH 6.0 (5.0 - 8.0) 12/18/19 11:45 Ur Specific [place] 1.015 (1.000-1.030) 12/18/19 11:45 Urine Protein 3+ (NEGATIVE) 12/18/19 11:45 Urine Glucose (UA) Negative (NEGATIVE) 12/18/19 11:45 Urine Ketones 3+ (NEGATIVE) 12/18/19 11:45 Urine Occult Blood 2+ (NEGATIVE) 12/18/19 11:45 Urine Nitrite Negative (NEGATIVE) 12/18/19 11:45 Urine Bilirubin Negative (NEGATIVE) 12/18/19 11:45 Urine Urobilinogen Normal (NORMAL) 12/18/19 11:45 Ur Leukocyte Esterase Negative (NEGATIVE) 12/18/19 11:45 Urine RBC 0-2 /HPF (0-3) 12/18/19 11:45 Urine WBC None seen /HPF (0-5) 12/18/19 11:45 Ur Squamous Epith Cells Negative /HPF (NEGATIVE) 12/18/19 11:45 Amorphous Sediment Trace /HPF (NEGATIVE) 12/18/19 11:45 Urine Bacteria Negative /HPF (NEGATIVE) 12/18/19 11:45 Granular Casts Rare /LPF (NEGATIVE) 12/18/19 11:45 Urine Mucus Few /HPF (NEGATIVE) 12/18/19 11:45 Ur Culture Indicated? No/not indicated 12/18/19 11:45 Vancomycin Trough 19.8 ug/mL (15-20) 01/10/20 08:45 Random Vancomycin 19.5 ug/mL 01/03/20 09:14 Miscellaneous Test Covid 19 01/03/20 14:25 Blood Type O POSITIVE 01/04/20 09:01 Antibody Screen Cancelled 01/04/20 09:01 - Plan (1) COVID-19 Status: Acute Plan: INVANZ 1G IV DAILY, VANCOMYCIN 750 MG IV Q12H, ZINC SULFATE 220MG PO DAILY, ROBITUSSIN DM 10ML PO QID, DUONEBS QID, PULMICORT NEBS BID, MUCOMYST IN [place], AND SOLU-MEDROL 80MG IV Q6H. (2) Pneumonia Status: Acute Qualifiers: Pneumonia type: due to methicillin-resistant Staphylococcus aureus (MRSA) Laterality: bilateral Lung location: lower lobe of lung Qualified Code(s): J15.212 - Pneumonia due to Methicillin resistant Staphylococcus aureus (3) Coronary artery disease Status: Chronic Qualifiers: Coronary Disease-Associated Artery/Lesion type: [place] artery [place] vs. transplanted heart: [place] heart Associated angina: with stable angina Qualified Code(s): I25.118 - Atherosclerotic heart disease of [place] coronary artery with other forms of angina pectoris (4) Dyslipidemia Status: Chronic (5) GERD (gastroesophageal reflux disease) Status: Chronic Qualifiers: Esophagitis presence: esophagitis presence not specified (6) COPD (chronic obstructive pulmonary disease) Status: Chronic Qualifiers: COPD type: chronic bronchitis Chronic bronchitis type: mucopurulent Qu alified Code(s): J41.1 - Mucopurulent chronic bronchitis (7) HTN (hypertension) Status: Chronic Qualifiers: Hypertension type: essential hypertension Qualified Code(s): I10 - Essential (primary) hypertension
[2020-01-10] MEDS: CRESTOR TAB 10 MG PO SCH (21:40)
[2020-01-10] MEDS: XARELTO PO SCH (21:40)
[2020-01-10] MEDS: MUCINEX EXPECTORANT PO SCH (21:40)
[2020-01-10] MEDS: KLONOPIN TAB 1 MG PO SCH (21:40)
[2020-01-11] MEDS: SOLU-Medrol 40 MG VIAL IVP SCH ×2 (05:00→10:37)
[2020-01-11 05:57] LABS: ABG BASE EXCESS 10.8 mmol/L (-2.0-2.0)
[2020-01-11 05:58] LABS: ABG ALLEN TEST POS; ABG HCO3 39.4 mmol/L (22-26)
--- NOTE | 2020-01-11 06:11 | RAD ---
HISTORYSOB, COVID +STUDYCHEST, 1 VIEWCOMPARISONOne day priorTECHNIQUEAP view of the chestFINDINGSCardiac silhouette stably enlarged. Stable bilateral diffuse airspace disease. Stable small right pleural effusion. No pneumothorax.IMPRESSIONNo significant change.Electronically signed by: Orlando Garcia (Jan 11, 2020 06:10:47)
[2020-01-11 06:57] LABS: ALANINE AMINOTRANSFERASE 37 Units/L (12-78); ALBUMIN 4.2 g/dL (3.4-5.0); ALKALINE PHOSPHATASE 68 Units/L (46-116); ASPARTATE AMINO TRANSFERASE 13 Units/L (15-37); BLOOD UREA NITROGEN 27 mg/dL (7-18); CALCIUM 8.3 mg/dL (8.5-10.1); CARBON DIOXIDE 36.4 mmol/L (21-32); CHLORIDE 100 mmol/L (98-107); COR NA(FOR HYPERGLY) 139 mmol/L (136-145); SODIUM 138 mmol/L (136-145); eGFR NON BLACK RACES > 60 (>60)
[2020-01-11 07:10] LABS: BASOPHILS % (AUTO) 0.3 % (0.2-1.0); HEMATOCRIT 24.4 % (36.0-47.0); HEMOGLOBIN 7.9 g/dL (12.0-16.0); LYMPHOCYTES # (AUTO) 0.1 X10^3/uL (1.3-2.9); LYMPHOCYTES % (AUTO) 2.1 % (21.0-51.0); MEAN CORPUSCULAR HEMOGLOBIN 30.7 pg (27.0-34.0); MEAN CORPUSCULAR HGB CONC 32.5 g/dL (33.0-35.0); MEAN CORPUSCULAR VOLUME 94.6 fL (80.0-100.0); MEAN PLATELET VOLUME 7.2 fL (7.4-11.0); MONOCYTES # (AUTO) 0.4 x10^3/uL (0.3-0.8); MONOCYTES % (AUTO) 6.7 % (0.0-13.0); NEUTROPHILS % (AUTO) 90.9 % (42.0-75.0); PLATELET COUNT 126 X10^3/uL (150.0-450.0); RED BLOOD COUNT 2.58 X10^6/uL (3.5-5.4); RED CELL DISTRIBUTION WIDTH 17.4 % (11.6-16.5); WHITE BLOOD COUNT 5.5 X10^3/uL (3.6-10.0)
[2020-01-11 08:36] LABS: HYPOCHROMASIA SLIGHT; PLATELET MORPHOLOGY COMMENT NORMAL (NORMAL)
[2020-01-11] MEDS: INVANZ INJ 1 GM VIAL 1 GM in NS 100 ML IV + SPIKE MINIBAG* 100 ML IV SCH (09:13)
[2020-01-11] MEDS: FOLIC ACID TAB 1 MG PO SCH (09:13)
[2020-01-11] MEDS: NEURONTIN CAP 300 MG PO SCH (09:14)
[2020-01-11] MEDS: CELEBREX PO SCH (09:15)
[2020-01-11] MEDS: NORCO 7.5/325 MG TAB PO SCH (09:15)
[2020-01-11] MEDS: CLARITIN PO SCH (09:16)
[2020-01-11] MEDS: CITRACAL + VITAMIN D PO SCH (09:16)
[2020-01-11] MEDS: COLACE CAP 100 MG PO SCH (09:17)
[2020-01-11] MEDS: COREG TAB 12.5 MG PO SCH (09:17)
[2020-01-11] MEDS: FERROUS GLUCONATE PO SCH (09:17)
[2020-01-11] MEDS: NexIUM PO SCH (09:20)
[2020-01-11] MEDS: ZINC SULFATE PO SCH (09:22)
[2020-01-11] MEDS: VSL#3 PO SCH (09:24)
[2020-01-11] MEDS: VITAMIN C PO SCH (09:24)
[2020-01-11] MEDS: THEO-DUR TAB 200 MG 12-HR PO SCH (09:25)
[2020-01-11] MEDS: POTASSIUM CHLORIDE LIQ 20 MEQ UDC PO SCH (09:26)
[2020-01-11] MEDS: ROBITUSSIN DM PO SCH (09:26)
[2020-01-11] MEDS: TAB-A-VITE PO SCH (09:27)
[2020-01-11] MEDS: SINGULAIR TAB 10 MG PO SCH (09:28)
[2020-01-11] MEDS: VITAMIN D3 125 mcg (5,000 UNITS) PO SCH (09:28)
[2020-01-11] MEDS: PROzac PO SCH (09:29)
[2020-01-11] MEDS: DUONEB 0.5 MG/3 MG (3 mL) NEB SCH (09:40)
[2020-01-11] MEDS: PULMICORT NEB TX 0.5 MG NEB SCH (09:40)
[2020-01-11] MEDS: MUCOMYST (RESPIRATORY USE ONLY) NEB SCH (09:40)
[2020-01-11] MEDS: ALBUMIN HUMAN 25%- 100 ML 100 ML IV SCH (10:39)
[2020-01-11] MEDS: VANCOMYCIN HCL 1 G in D5W 250 ML IV 250 ML IV SCH (11:48)
[2020-01-11 15:18] VITALS: BP 145/65
== END 2020-01-11 14:30 | DRG 177 ==
LOC: OBS 13:41 → ICU 13:44 → MED/SURG 01-07 19:50 → ICU 01-08 09:30
PROVIDERS: ADMIT Internal Medicine; ATTEND Internal Medicine
DX: J15.212 Pneumonia due to Methicillin resistant Staphylococcus aureus; U07.1 COVID-19; I50.9 Heart failure, unspecified; I10 Essential (primary) hypertension; R26.89 Other abnormalities of gait and mobility; D50.0 Iron deficiency anemia secondary to blood loss (chronic); F41.8 Other specified anxiety disorders; I87.2 Venous insufficiency (chronic) (peripheral); Z66 Do not resuscitate; K21.9 Gastro-esophageal reflux disease without esophagitis; E78.2 Mixed hyperlipidemia; J41.1 Mucopurulent chronic bronchitis; J15.5 Pneumonia due to Escherichia coli; R06.02 Shortness of breath

== ENCOUNTER 2023-05-31 17:23 | Inpatient (IN) ==
--- NOTE | 2023-05-31 17:35 | DR.SORETHR ---
HPI Time Seen Time Seen by Provider: 05/31/23 17:35 Primary Care Physician Primary Care Physician: CHARLIE HPI Comment HPI Comment: Increasing shortness of breath and hoarseness since yesterday. Complaints Chief Complaint Doctors Comments: Patient is 82-year-old female in the emergency room with increasing shortness of breath and hoarseness since yesterday. Patient said her symptoms started getting worse. Patient is also having oxygen desaturation especially on exertion. Chief Complaint:: PATIENT C/O H/A, SORE THROAT, HOARSE, AND SHORTNESS OF BREATH. PATIENT STATES SHE BEGAN TO FEEL BAD YESTERDAY AFTERNOON. PATIENT STATES SHE TOOK A NAP THIS AFTERNOON AND WOKE UP FEELING WORSE. COVID-19 Coronavirus risk:travel/contact w/high risk person: No Has patient experienced Coronavirus symptoms: No Reviewed Nurses Notes Reviewed: Yes Source History Provided: Patient Mode of Arrival Mode of Arrival: Wheelchair Timing Onset of Chief Complaint: 05/30/23 PMH PMH Past Medical History: Yes Past Medical History: Anemia, Anxiety, Arthritis, COPD, Coronary Artery Disease, Dyslipidemia, GERD, Hypertension and ND Past Surgical History: Yes Surgical History: Appendectomy and Ortho Surgery Family History History of Family Medical Conditions: Yes Family Medical History: Cancer, Coronary Artery Disease and Hypertension Social History Does any household member use tobacco: No Alcohol Use: None Do you use any recreational Drugs:: No Lives With: Other Lives Where: Retirement Travel Risk Coronavirus risk:travel/contact w/high risk person: No Has patient experienced Coronavirus symptoms: No Infectious screening In the last 2 months have you had wt loss of >10#?: NO Have you had fever, night sweats or hemotysis?: No Have you traveled outside the country in the last 6 months?: No Isolation: Standard ROS Review of Systems Constitutional: No Symptoms Reported Eyes: No Symptoms Reported ENTM: Nose Discharge, Nose Congestion and Throat Pain (Horseness.) Respiratoy: Moist Cough and Short of Breath Cardiovascular: No Symptoms Reported Gastrointestinal/Abdominal: No Symptoms Reported; negative Abdominal Pain, Diarrhea or Vomiting Genitourinary: No Symptoms Reported; negative Dysuria Neurological: No Symptoms Reported Musculoskeletal: No Symptoms Reported Integumentary: No Symptoms Reported Hematologic/Lymphatic: No Symptoms Reported Endocrine: No Symptoms Reported Psychiatric: No Symptoms Reported All Other Systems: Reviewed and Negative PE Vital Signs Vitals: Vital Signs Temperature 98.7 F Pulse Rate 88 Pulse Rate 85 Pulse Rate 86 Pulse Rate 90 Pulse Rate 90 Pulse Rate 92 Pulse Rate 90 Pulse Rate 88 Respiratory Rate 20 Blood Pressure 162/67 Blood Pressure 187/75 Blood Pressure 187/83 Blood Pressure 129/92 O2 Sat by Pulse Oximetry 97 O2 Sat by Pulse Oximetry 99 O2 Sat by Pulse Oximetry 98 O2 Sat by Pulse Oximetry 99 O2 Sat by Pulse Oximetry 98 O2 Sat by Pulse Oximetry 92 O2 Sat by Pulse Oximetry 89 O2 Sat by Pulse Oximetry 85 General Limitations: Other (Horseness.) General Appearance: Alert and In Distress Head Head Exam: Normal Inspection Eyes Eye exam: Normal Appearance; negative Scleral Icterus or Conjunctival Injection ENT ENT Exam: Normal Exam, Normal Oropharynx and Normal External Ear Exam External Ear Exam: Normal External Inspection; negative Mastoid Tenderness TM/Canal Exam: Bilateral: Normal Nose Exam: Normal Nose Exam Mouth Exam: Normal Inspection; negative Lip Swelling or Tongue Swelling Throat Exam: Tonsillar Erythema; negative Tonsillomegaly or Tonsillar Exudate Neck Neck Exam: Normal Inspection and Trachea Midline; negative Tenderness Chest Chest Inspection: Normal Inspection and Symmetric Chest Wall Rise; negative Tenderness Respiratory Respiratory Exam: Respiratory Distress; negative Accessory Muscle Use or Chest Wall Tenderness Cardiovascular Cardiovascular Exam: Irregular Rhythm; negative Systolic Murmur or Diastolic Murmur Abdominal Exam Abdominal Exam: Normal Inspection, Normal Bowel Sounds and Soft; negative Tenderness Extremities Extremities Exam: Normal Inspection and Normal Capillary Refill Back Back Exam: Normal Inspection; negative (R) CVA Tenderness or (L) CVA Tenderness Neurologic Neurological Exam: Alert and Oriented X3; negative Motor Sensory Deficit Psychiatric Psychiatric Exam: Normal Affect and Normal Mood Skin Skin Exam: Warm and Intact MDM Differential Diagnosis Differential Diagnosis: Peritonsillar Abcess, Streptococcal Pharyngitis, Viral Pharyngitis, URI and Other (Pneumonia, congestive heart failure, bronchitis) COURSE Treatment Treatment: See orders done while patient was in the emergency room. Labs, EKG and chest x-ray report with discussed with patient and her daughter. Patient was given Rocephin 1 g IV piggyback, Toradol 30 mg IV and Lasix 20 mg IV. Patient was also placed on 2 L of oxygen while in the ER which improved her oxygen saturation. COVID-19 virus test was positive Patient will be admitted to hospital for further management. Consultation Consultation Comments: Discussed patient with Dr. Valdez. He will admit patient. Education/Counseling Education/Counseling: Patient and Family Educated On: Diagnosis ROR Labs Reviewed Laboratory Results Reviewed?: Yes 05/31/23 17:48 05/31/23 17:48 Laboratory: WBC 8.8 X10^3/uL (3.6-10.0) 05/31/23 17:48 RBC 4.50 X10^6/uL (3.5-5.4) 05/31/23 17:48 Hgb 13.6 g/dL (12.0-16.0) 05/31/23 17:48 Hct 41.2 % (36.0-47.0) 05/31/23 17:48 MCV 91.7 fL (80.0-100.0) 05/31/23 17:48 MCH 30.2 pg (27.0-34.0) 05/31/23 17:48 MCHC 33.0 g/dL (33.0-35.0) 05/31/23 17:48 RDW 14.0 % (11.6-16.5) 05/31/23 17:48 Plt Count 217 X10^3/uL (150.0-450.0) 05/31/23 17:48 MPV 7.2 fL (7.4-11.0) L 05/31/23 17:48 Neut % (Auto) 81.4 % (42.0-75.0) H 05/31/23 17:48 Lymph % (Auto) 9.5 % (21.0-51.0) L 05/31/23 17:48 [place] % (Auto) 5.5 % (0.0-13.0) 05/31/23 17:48 Eos % (Auto) 2.3 % (0.9-2.9) 05/31/23 17:48 Baso % (Auto) 1.3 % (0.2-1.0) H 05/31/23 17:48 Neut # (Auto) 7.2 x10^3/uL (2.2-4.8) H 05/31/23 17:48 Lymph # (Auto) 0.8 X10^3/uL (1.3-2.9) L 05/31/23 17:48 [place] # (Auto) 0.5 x10^3/uL (0.3-0.8) 05/31/23 17:48 Eos # (Auto) 0.2 x10^3/uL (0.0-0.2) 05/31/23 17:48 Baso # (Auto) 0.1 X10^3/uL (0.0-0.1) 05/31/23 17:48 Absolute Nucleated RBC 0.0 /100WBC 05/31/23 17:48 Sodium 138 mmol/L (136-145) 05/31/23 17:48 Corrected Sodium TNP 05/31/23 17:48 Potassium 4.2 mmol/L (3.5-5.1) 05/31/23 17:48 Chloride 101 mmol/L (98-107) 05/31/23 17:48 Carbon Dioxide 35.5 mmol/L (21-32) H 05/31/23 17:48 BUN 15 mg/dL (7-18) 05/31/23 17:48 Creatinine 0.79 mg/dL (0.55-1.02) 05/31/23 17:48 Est GFR (MDRD) Af Amer > 60 (>60) 05/31/23 17:48 Est GFR (MDRD) Non-Af > 60 (>60) 05/31/23 17:48 Glucose 94 mg/dL (65-99) 05/31/23 17:48 Calcium 9.0 mg/dL (8.5-10.1) 05/31/23 17:48 Corrected Calcium 9.7 mg/dL (8.5-10.1) 05/31/23 17:48 Total Bilirubin 0.30 mg/dL (0.2-1.0) 05/31/23 17:48 AST 17 Units/L (15-37) 05/31/23 17:48 ALT 18 Units/L (12-78) 05/31/23 17:48 Alkaline Phosphatase 106 Units/L (46-116) 05/31/23 17:48 Creatine Kinase 103 Units/L (26-192) 05/31/23 17:48 Troponin I High Sens 10.5 ng/L (4.0-60.0) 05/31/23 17:48 Total Protein 7.2 g/dL (6.4-8.2) 05/31/23 17:48 Albumin 3.1 g/dL (3.4-5.0) L 05/31/23 17:48 Globulin 4.1 g/dL (2.5-4.5) 05/31/23 17:48 Albumin/Globulin Ratio 0.8 Ratio (1.1-2.1) L 05/31/23 17:48 SARS-CoV-2 (PCR) Positive (NEGATIVE) A 05/31/23 17:52 Influenza Type A (PCR) Negative (NEGATIVE) 05/31/23 17:52 Influenza Type B (PCR) Negative (NEGATIVE) 05/31/23 17:52 RSV (PCR) Negative (NEGATIVE) 05/31/23 17:52 S. pyogenes (TEM-PCR) Not detected (NOT DETECT) 05/31/23 17:52 XRAY XRAY Interpreted by: Radiologist (Report was noted.) and Self EKG Rate: 89 Point [place]: Normal Rhythm: Afib Block: None Hypertrophy: None ST: Nonsp Opioid Opioid Risk Tool Age ( box if 16-45): No History of Preadolescent Sexual Abuse: No Total: 0 Total Score Risk Category: Low Risk Copyright: Dimitry CHAVIRA predicting aberrant behaviors Discharge Plan Diagnosis Discharge Problem: Hypoxia, COVID-19 virus infection, Laryngitis CHF (congestive heart failure) Qualifiers: Heart failure type: combined systolic and diastolic Heart failure chronicity: acute on chronic Qualified Code(s): I50.43 - Acute on chronic combined systolic (congestive) and diastolic (congestive) heart failure Discharge Plan Patient Disposition: HOME, SELF-CARE Condition: Stable Prescriptions: No Action rosuvastatin [Crestor] 40 MG tablet 40 mg PO HS gabapentin 300 MG capsule 300 mg PO TID docusate sodium 100 MG capsule 100 mg PO BID clopidogrel [Plavix] 75 mg Tablet 75 mg PO DAILY furosemide 40 mg Tablet 20 mg PO DAILY carvedilol [Coreg] 25 mg Tablet 12.5 mg PO BID hydrocodone-acetaminophen [[place]] 10-325 mg Tablet 1 tab PO BID multivitamin Tablet 1 tab PO QAM celecoxib [Celebrex] 200 mg Capsule 200 mg PO DAILY sennosides [Senokot] 8.6 mg Tablet 8.6 mg PO DAILY fexofenadine 60 mg Capsule 60 mg PO DAILY potassium chloride 20 mEq/15 mL liquid See Rx Instructions .ROUTE .COMPLEX Rx Instructions: Give 7.5 mL by mouth one time a day related to hypokalemia. Dilute with 4 oz of liquid. pantoprazole 40 mg tablet,delayed release (DR/EC) 40 mg PO BID folic acid 1 mg Tablet 2 mg PO DAILY montelukast 10 mg tablet 10 mg PO DAILY Calcium + Vitamin D 600 mg calcium- 200 unit Tablet 1 tab PO BID Ferrocite Plus 106 mg iron- 1 mg Tablet 1 tab PO ONCE fluoxetine 20 mg capsule 20 mg PO DAILY fluticasone propionate 50 mcg/actuation spray,suspension 1 spray INTRANASAL BID Procrit 10,000 unit/mL Solution 10,000 unit SUBCUT ONCE PRN Patient Comments: 3x weekly when HGB <10 loratadine 10 mg Tablet 10 mg PO ONCE cyanocobalamin (vitamin B-12) 1,000 mcg/mL Syringe 1,000 mcg MONTHLY biotin 1 mg Tablet 1 mg PO ONCE cholecalciferol (vitamin D3) [Vitamin D3] 125 mcg (5,000 unit) Tablet 125 mcg PO DAILY denosumab 60 mg/mL Syringe 60 mg SUBCUT [id number] Xarelto 10 mg tablet 10 mg PO HS Probiotic 3 billion cell Capsule 3,000 mmu cells PO ONCE clonazepam 1 MG tablet 0.5 mg PO HS Rx Instructions: TAKE 1 TABLET BY MOUTH AT BEDTIME Health Concerns: Post Hospitalization: new medications and changes needed to prevent readmission or further decline. Pt educated and given instructions on all concerns. Plan of Treatment: Continue with present treatment and follow up plan. Pt is to keep follow up appointment as instructed and take medications as ordered. Orders to Discharge Patient Discharge Orders: Transfer (Routine); Ordered 05/31/23 Ordered By: ANGELLA HOLLAND Follow ups/Referrals Follow ups/Referrals: Justin Valdez [Primary Care Provider] - 3 days Instructions Stand Alone Forms: Post Hospital Follow Up Care
--- NOTE | 2023-05-31 17:54 | EKG ---
Test Reason : CHEST PAIN Blood Pressure : */* mmHG Vent. Rate : 89 BPM Atrial Rate : * BPM P-R Int : * ms QRS Dur : 80 ms QT Int : 356 ms P-R-T Axes : * 52 62 degrees QTc Int : 433 ms Atrial fibrillation Nonspecific ST and T wave abnormality Abnormal ECG No previous ECGs available Confirmed by Krish Ang MD ([id number]) on 06/02/2023 7:37:02 AM Referred By: Confirmed By: Krish Ang MD
[2023-05-31 17:59] LABS: BASOPHILS # (AUTO) 0.1 X10^3/uL (0.0-0.1); BASOPHILS % (AUTO) 1.3 % (0.2-1.0); EOSINOPHILS # (AUTO) 0.2 x10^3/uL (0.0-0.2); EOSINOPHILS % (AUTO) 2.3 % (0.9-2.9); HEMATOCRIT 41.2 % (36.0-47.0); HEMOGLOBIN 13.6 g/dL (12.0-16.0); LYMPHOCYTES # (AUTO) 0.8 X10^3/uL (1.3-2.9); LYMPHOCYTES % (AUTO) 9.5 % (21.0-51.0); MEAN CORPUSCULAR HEMOGLOBIN 30.2 pg (27.0-34.0); MEAN CORPUSCULAR VOLUME 91.7 fL (80.0-100.0); MEAN PLATELET VOLUME 7.2 fL (7.4-11.0); MONOCYTES # (AUTO) 0.5 x10^3/uL (0.3-0.8); MONOCYTES % (AUTO) 5.5 % (0.0-13.0); NEUTROPHILS # (AUTO) 7.2 x10^3/uL (2.2-4.8); NEUTROPHILS % (AUTO) 81.4 % (42.0-75.0); PLATELET COUNT 217 X10^3/uL (150.0-450.0); WHITE BLOOD COUNT 8.8 X10^3/uL (3.6-10.0)
--- NOTE | 2023-05-31 18:04 | RAD ---
EXAM:CHEST, 1 VIEWHISTORY:SOB, cough, generalized weakness; SX: appy, ortho HX: CAD, HTN, COPD, anemia UnavailableCOMPARISON:August 2022FINDINGS:The trachea is midline. The cardiac silhouette is enlarged but stable. There is some mild pulmonary vascular congestion suggesting changes of CHF. The bony thorax is stable.IMPRESSION:Findings of CHF.THIS IS AN ELECTRONICALLY VERIFIED FINAL REPORT05/31/2023 5:52 PM - Electronically signed by Ventura Gibson MD
[2023-05-31 18:12] LABS: ALANINE AMINOTRANSFERASE 18 Units/L (12-78); ALBUMIN 3.1 g/dL (3.4-5.0); ALKALINE PHOSPHATASE 106 Units/L (46-116); ASPARTATE AMINO TRANSFERASE 17 Units/L (15-37); BLOOD UREA NITROGEN 15 mg/dL (7-18); CARBON DIOXIDE 35.5 mmol/L (21-32); CHLORIDE 101 mmol/L (98-107); COR CA(FOR HYPOALB) 9.7 mg/dL (8.5-10.1); CREATINE KINASE 103 Units/L (26-192); CREATININE 0.79 mg/dL (0.55-1.02); GLUCOSE 94 mg/dL (65-99); POTASSIUM 4.2 mmol/L (3.5-5.1); SODIUM 138 mmol/L (136-145); TOTAL PROTEIN 7.2 g/dL (6.4-8.2); eGFR NON BLACK RACES > 60 (>60)
[2023-05-31] MEDS ORDERED: ROCEPHIN VIAL 1 GRAM IVP ONE (20:15)
[2023-05-31] MEDS ORDERED: LASIX IVP ONE (20:16)
[2023-05-31] MEDS ORDERED: LASIX ONE (20:17)
[2023-05-31] MEDS ORDERED: ROCEPHIN VIAL 1 GRAM ONE (20:17)
[2023-05-31 21:02] LABS: BILIRUBIN,URINE NEGATIVE (NEGATIVE); BLOOD/HEMOGLOBIN,URINE 1+ (NEGATIVE); GLUCOSE, URINE NEGATIVE (NEGATIVE); KETONES,URINE NEGATIVE (NEGATIVE); LEUKOCYTE ESTERASE ,URINE NEGATIVE (NEGATIVE); NITRITES,URINE NEGATIVE (NEGATIVE); PH,URINE 6.5 (5.0 - 8.0); PROTEIN,URINE 1+ (NEGATIVE); UROBILINOGEN,URINE NORMAL (NORMAL)
[2023-05-31 21:48] LABS: APPEARANCE,URINE CLEAR (CLEAR); BACTERIA,URINE NEGATIVE /HPF (NEGATIVE); COLOR,URINE YELLOW (YELLOW); RBC,URINE 0-2 /HPF (0-3); SQUAMOUS EPITHELIAL CELL,UR RARE /HPF (NEGATIVE)
[2023-05-31 22:44] VITALS: BMI 29.6
[2023-05-31] MEDS: XARELTO PO SCH (22:54)
[2023-06-01] MEDS: TYLENOL 325 MG TAB PO PRN ×3 (03:15→18:04)
[2023-06-01 05:46] LABS: BASOPHILS % (AUTO) 0.3 % (0.2-1.0); EOSINOPHILS % (AUTO) 0.2 % (0.9-2.9); HEMATOCRIT 38.4 % (36.0-47.0); HEMOGLOBIN 12.6 g/dL (12.0-16.0); LYMPHOCYTES # (AUTO) 0.9 X10^3/uL (1.3-2.9); LYMPHOCYTES % (AUTO) 9.7 % (21.0-51.0); MEAN CORPUSCULAR HEMOGLOBIN 29.9 pg (27.0-34.0); MEAN CORPUSCULAR HGB CONC 32.7 g/dL (33.0-35.0); MEAN CORPUSCULAR VOLUME 91.5 fL (80.0-100.0); MEAN PLATELET VOLUME 7.3 fL (7.4-11.0); MONOCYTES # (AUTO) 0.7 x10^3/uL (0.3-0.8); MONOCYTES % (AUTO) 7.9 % (0.0-13.0); NEUTROPHILS # (AUTO) 7.6 x10^3/uL (2.2-4.8); NEUTROPHILS % (AUTO) 81.9 % (42.0-75.0); PLATELET COUNT 198 X10^3/uL (150.0-450.0); RED CELL DISTRIBUTION WIDTH 13.7 % (11.6-16.5); WHITE BLOOD COUNT 9.3 X10^3/uL (3.6-10.0)
[2023-06-01 06:01] LABS: ALANINE AMINOTRANSFERASE 17 Units/L (12-78); ALBUMIN 2.6 g/dL (3.4-5.0); ALKALINE PHOSPHATASE 83 Units/L (46-116); ASPARTATE AMINO TRANSFERASE 22 Units/L (15-37); BLOOD UREA NITROGEN 15 mg/dL (7-18); CALCIUM 8.4 mg/dL (8.5-10.1); CARBON DIOXIDE 33.8 mmol/L (21-32); CHLORIDE 99 mmol/L (98-107); COR CA(FOR HYPOALB) 9.5 mg/dL (8.5-10.1); CREATININE 0.94 mg/dL (0.55-1.02); GLUCOSE 109 mg/dL (65-99); MAGNESIUM 1.8 mg/dL (2.0-2.9); POTASSIUM 3.6 mmol/L (3.5-5.1); SODIUM 139 mmol/L (136-145); TOTAL PROTEIN 6.5 g/dL (6.4-8.2); eGFR NON BLACK RACES > 60 (>60)
[2023-06-01] MEDS ORDERED: CONSULT PHARMACY - POTASSIUM & MAGNESIUM XX SCH (07:00)
[2023-06-01] MEDS: MAG-OX TAB PO SCH ×2 (08:55→10:00)
[2023-06-01] MEDS: LASIX IVP SCH (08:55)
[2023-06-01] MEDS: SENOKOT PO SCH (08:56)
[2023-06-01] MEDS: NORCO 10/325 TAB PO SCH ×2 (08:56→21:48)
[2023-06-01] MEDS ORDERED: K-DUR TAB 20 MEQ PO SCH (09:00)
[2023-06-01] MEDS: MAGIC MOUTHWASH (Orig. Formula) MT SCH ×4 (10:25→21:41)
[2023-06-01] MEDS: NEURONTIN CAP 300 MG PO SCH ×2 (14:26→21:36)
[2023-06-01] MEDS ORDERED: PATIENT'S HOME MEDICATION (Ondansetron Hcl 8 mg tablet) PO PRN (16:55)
[2023-06-01] MEDS ORDERED: LASIX PO SCH (17:00)
[2023-06-01] MEDS ORDERED: FERROUS FUMARATE PO SCH (17:00)
[2023-06-01] MEDS: NexIUM PO SCH (18:03)
[2023-06-01] MEDS: PLAVIX PO SCH (18:03)
[2023-06-01] MEDS: FOLIC ACID TAB 1 MG PO SCH (18:03)
[2023-06-01] MEDS: SINGULAIR TAB 10 MG PO SCH (18:04)
[2023-06-01] MEDS: VOLTAREN 1 % GEL MULTI DOSE TUBE TOP SCH ×2 (18:04→21:40)
[2023-06-01] MEDS ORDERED: ZOFRAN TAB 4 MG PO PRN (18:27)
[2023-06-01] MEDS ORDERED: PROVENTIL NEB TX 0.083% 2.5MG/ 3ML NEB SCH (21:00)
[2023-06-01] MEDS ORDERED: CRESTOR TAB 10 MG PO SCH (21:00)
[2023-06-01] MEDS ORDERED: PATIENT'S HOME MEDICATION (Rosuvastatin 40 mg tablet) PO SCH (21:00)
[2023-06-01] MEDS ORDERED: PATIENT'S HOME MEDICATION (Budesonide-Formoterol [Symbicort] 160-4.5 mcg/actuation HFA aer IN SCH (21:00)
[2023-06-01] MEDS ORDERED: ROCEPHIN VIAL 1 GRAM 1 G in NS 100 ML IV 100 ML IV SCH (21:00)
[2023-06-01] MEDS: COLACE CAP 100 MG PO SCH (21:36)
[2023-06-01] MEDS: COREG TAB 12.5 MG PO SCH (21:37)
[2023-06-01] MEDS: XARELTO PO SCH (21:37)
[2023-06-01] MEDS: KLONOPIN TAB 0.5 MG PO SCH (21:38)
--- NOTE | 2023-06-01 21:40 | DR.H&P ---
H&P - History & Physical for Day of: H&P Date: 05/31/23 - Chief Complaint Chief Complaint: COUGH, SOB, SORE THROAT - History of Present Illness History of Present Illness: IS A 82 YEAR OLD PATIENT OF OURS. SHE IS A RESIDENT OF [facility]. SHE HAS A PMH OF ANEMIA, ANXIETY, ARTHRITIS, COPD, CAD, DYSLIPIDEMIA, GERD, HTN, [place], AND APPENDECTOMY. SHE PRESENTED TO THE ER WITH COMPLAINTS OF INCREASING SHORTNESS OF BREATH, NON-PRODUCTIVE COUGH, AND HOARSENESS SINCE YESTERDAY. DETENTION STAFF REPORTS THAT SHE IS HAVING OXYGEN DESATURATIONS ON AMBULATION. ON ARRIVAL, HER VITALS WERE: 98.7-88-20-85%RA-129/92. LABS WERE OBTAINED. WBC 8.8, RBC 4.50, HGB 13.6, HCT 41.2, SODIUM 138, POTASSIUM 4.2, CHLORIDE 101, CARBON DIOXIDE 35.5, BUN 15, CREATININE 0.79, GLUCOSE 94, CALCIUM 9.0, AST 17, ALT 18, ALK PHOS 106, CREATINE KINASE 103, TROPONIN 10.5, BNP 197, TOTAL PROTEIN 7.2, ALBUMIN 3.1. URINALYSIS WAS OBTAINED AND WAS UNREMARKABLE. COVID-19 WAS POSITIVE. INFLUENZA, RSV, AND STREP NEGATIVE. A CHEST XRAY WAS OBTAINED AND REVEALED CHF. EKG REVEALED ATRIAL FIBRILLATION WITH HR 89 BPM. IN THE ER, SHE WAS GIVEN ROCEPHIN 1G IV X 1, LASIX 20MG IV X 1. SHE WAS ADMITTED TO THE HOSPITAL OBSERVATION STATUS FOR TX OF COVID-19, ACUTE BRONCHITIS, LARYNGITIS, CHF, HYPOXIA. SHE WAS STARTED ON ROCEPHIN 1G IV DAILY, PULMICORT NEBS BID, ALBUTEROL NEBS QID, LASIX 20MG IV DAILY, MAGIC MOUTHWASH QID, TYLENOL 650MG PO Q6H PRN. WE WILL RESUME HER HOME MEDICATIONS OF COREG, CELEBREX, KLONOPIN, PLAVIX, VOLTAREN GEL, COLACE, NEXIUM, FOLIC ACID, NEURONTIN, NORCO, SINGULAIR, ZOFRAN, XARELTO, CRESTOR, SENOKOT, AND HEMOCYTE PLUS. OTHERWISE, WE WILL FOLLOW UP WITH AM LABS AND CHEST XRAY AND CONTINUE TO MONITOR. TIME SPENT ON CLINICAL ASSESSMENT, REVIEWING LABS AND IMAGING, DECISION MAKING, AND DOCUMENTATION GREATER THAN 75 MINUTES. - Past Medical History Past Medical History: [place], Coronary Artery Disease, Hypertension, Dyslipidemia, Anxiety, Anemia, COPD, GERD, Arthritis Additional Medical History: Cataracts, Sinusitis, Bronchitis, Pneumonia, Gallbladder disease, Back Pain, Previous Blood Transfusion, Skin Cancer Forehead - Past Surgical History Surgical History: Ortho Surgery Additional Surgical History: Skin Cancer Removed, Bilateral Hip Surgery, Right Wrist Surgery, Right Shoulder Surgery - Family History Family Medical History: Diabetes Mellitus, Hypertension - Social History Does patient currently use any type of tobacco product: No Have you used tobacco products in the last 12 months: No Type of Tobacco Use: None Does any household member use tobacco: No Alcohol Use: None - Review of Systems Constitutional: Weakness Eyes: No Symptoms Reported ENT: See HPI Respiratory: Cough, Shortness of Breath, SOB with Excertion Cardiovascular: No Symptoms Reported Gastrointestinal: No Symptoms Reported Genitourinary: No Symptoms Reported Musculoskeletal: No Symptoms Reported Skin: No Symptoms Reported Neurological: Weakness - Physical Exam Vital Signs: Vital Signs Temperature 97.7 F Pulse Rate [Right] 82 Respiratory Rate 22 Respiratory Rate 22 Respiratory Rate 18 Blood Pressure [Right Arm] 106/55 O2 Sat by Pulse Oximetry 94 Oriented: Normal Nose: Normal Respiratory: Diminished Throughout Cardiovascular: Normal : Normal Auscultation: Bowel Sounds: Normal Palpation: Normal Tenderness: Normal Skin: Normal Musculoskeletal: Normal Psychiatric: Normal Mood Description: Calm Affect: Normal Speech Pattern: Clear - Assessment/Plan (1) COVID-19 virus infection Status: Acute Plan: ROCEPHIN 1G IV DAILY, PULMICORT NEBS BID, ALBUTEROL NEBS QID, LASIX 20MG IV DAILY, MAGIC MOUTHWASH QID, TYLENOL 650MG PO Q6H PRN. WE WILL RESUME HER HOME MEDICATIONS OF COREG, CELEBREX, KLONOPIN, PLAVIX, VOLTAREN GEL, COLACE, NEXIUM, FOLIC ACID, NEURONTIN, NORCO, SINGULAIR, ZOFRAN, XARELTO, CRESTOR, SENOKOT, AND HEMOCYTE PLUS. 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 t ransplanted heart: [place] heart Associated angina: with stable angina Qualified Code(s): I25.118 - Atherosclerotic heart disease of [place] coronary artery with other forms of angina pectoris Status: Chronic (8) Dyslipidemia Status: Chronic (9) GERD (gastroesophageal reflux disease) Qualifiers: Esophagitis presence: esophagitis presence not specified Status: Chronic (10) HTN (hypertension) Qualifiers: Hypertension type: primary hypertension Qualified Code(s): I10 - Essential (primary) hypertension Status: Chronic - Allergies Allergies/Adverse Reactions: Allergies Allergy/AdvReac Type Severity Reaction Status Date / Time codeine Allergy Verified 02/06/17 22:08 hydromorphone [From Dilaudid] Allergy Verified 02/06/17 22:08 influenza virus vaccine qs Allergy Verified 03/24/17 18:04 [id number] (36 mos, up) [From Single Use EZ Flu] meperidine [From Demerol] Allergy Verified 02/06/17 22:08 - Medications Home Medications: Home Medications Medication Instructions Recorded Confirmed rosuvastatin 40 mg tablet (Crestor) 40 mg PO HS 12/31/11 05/31/23 rivaroxaban 10 mg tablet (Xarelto) 10 mg PO HS 08/14/21 05/31/23 sennosides 8.6 mg tablet (Senokot) 8.6 mg PO DAILY 08/14/21 05/31/23 budesonide-formoterol HFA 160 1 inh inhalation BID 06/01/23 06/01/23 mcg-4.5 mcg/actuation aerosol inhaler (Symbicort) carvedilol 12.5 mg tablet 12.5 mg PO BID 06/01/23 06/01/23 celecoxib 200 mg capsule 200 mg PO QDAY 06/01/23 06/01/23 clonazepam 0.5 mg tablet 0.5 mg PO HS 06/01/23 06/01/23 clopidogrel 75 mg tablet 75 mg PO ONCE 06/01/23 06/01/23 diclofenac sodium 1 % topical gel 1 ea topical BID 06/01/23 06/01/23 (Voltaren Arthritis Pain) docusate sodium 100 mg capsule 100 mg PO BID 06/01/23 06/01/23 (Colace) esomeprazole magnesium 40 mg 40 mg PO QDAY 06/01/23 06/01/23 capsule,delayed release ferrous fumarate 324 mg (106 mg 324 mg PO DAILY 06/01/23 06/01/23 iron) tablet (Hemocyte) folic acid 1 mg tablet 2 mg PO QDAY 06/01/23 06/01/23 furosemide 20 mg tablet 20 mg PO QDAY 06/01/23 06/01/23 gabapentin 300 mg capsule 300 mg PO TID 06/01/23 06/01/23 hydrocodone 10 mg-acetaminophen 1 tab PO TID PRN 06/01/23 06/01/23 325 mg tablet montelukast 10 mg tablet 10 mg PO QDAY 06/01/23 06/01/23 montelukast 10 mg tablet 10 mg PO QDAY 06/01/23 06/01/23 ondansetron HCl 8 mg tablet 8 mg PO Q8H 06/01/23 06/01/23 potassium chloride 20 mEq/15 mL 10 meq PO DAILY 06/01/23 06/01/23 oral liquid rivaroxaban 10 mg tablet (Xarelto) 10 mg PO QDAY 06/01/23 06/01/23 rosuvastatin 40 mg tablet 40 mg PO HS 06/01/23 06/01/23
[2023-06-01] MEDS: PULMICORT NEB TX 0.5 MG NEB SCH (21:50)
[2023-06-02 05:27] LABS: BASOPHILS % (AUTO) 0.4 % (0.2-1.0); EOSINOPHILS # (AUTO) 0.1 x10^3/uL (0.0-0.2); EOSINOPHILS % (AUTO) 1.1 % (0.9-2.9); HEMATOCRIT 39.4 % (36.0-47.0); LYMPHOCYTES # (AUTO) 0.9 X10^3/uL (1.3-2.9); LYMPHOCYTES % (AUTO) 14.2 % (21.0-51.0); MEAN CORPUSCULAR HEMOGLOBIN 30.7 pg (27.0-34.0); MEAN CORPUSCULAR HGB CONC 33.1 g/dL (33.0-35.0); MEAN CORPUSCULAR VOLUME 92.9 fL (80.0-100.0); MEAN PLATELET VOLUME 7.6 fL (7.4-11.0); MONOCYTES # (AUTO) 0.7 x10^3/uL (0.3-0.8); MONOCYTES % (AUTO) 11.2 % (0.0-13.0); NEUTROPHILS # (AUTO) 4.7 x10^3/uL (2.2-4.8); NEUTROPHILS % (AUTO) 73.1 % (42.0-75.0); PLATELET COUNT 174 X10^3/uL (150.0-450.0); RED BLOOD COUNT 4.25 X10^6/uL (3.5-5.4); RED CELL DISTRIBUTION WIDTH 13.6 % (11.6-16.5); WHITE BLOOD COUNT 6.5 X10^3/uL (3.6-10.0)
[2023-06-02 05:47] LABS: ALANINE AMINOTRANSFERASE 50 Units/L (12-78); ALBUMIN 2.5 g/dL (3.4-5.0); ALKALINE PHOSPHATASE 91 Units/L (46-116); ASPARTATE AMINO TRANSFERASE 112 Units/L (15-37); BLOOD UREA NITROGEN 19 mg/dL (7-18); CALCIUM 7.9 mg/dL (8.5-10.1); CARBON DIOXIDE 34.3 mmol/L (21-32); CHLORIDE 100 mmol/L (98-107); COR CA(FOR HYPOALB) 9.1 mg/dL (8.5-10.1); CREATININE 0.98 mg/dL (0.55-1.02); GLUCOSE 96 mg/dL (65-99); MAGNESIUM 2.1 mg/dL (2.0-2.9); POTASSIUM 4.2 mmol/L (3.5-5.1); SODIUM 137 mmol/L (136-145); TOTAL PROTEIN 6.6 g/dL (6.4-8.2); eGFR NON BLACK RACES 57 (>60)
[2023-06-02] MEDS: NEURONTIN CAP 300 MG PO SCH ×3 (06:31→21:14)
--- NOTE | 2023-06-02 07:08 | RAD ---
EXAM:Portable chestHISTORY:Hypoxia, COVIDCOMPARISON:05/31/2023FINDINGS:Patie nt is rotated to the left. The heart is enlarged but unchanged from the prior examination. No definite congestive heart failure on today's examination. No definite acute infiltrates. No pleural effusions identified. Bony thorax is unremarkable with exception of multiple old healed rib fractures on the left, left-sided glenohumeral degenerative joint disease and likely chronic rotator cuff disease and postsurgical changes right shoulder with a right shoulder hemiarthroplasty present.IMPRESSION:Cardiomegaly without definite congestive heart failureNo definite acute infiltratesTHIS IS AN ELECTRONICALLY VERIFIED FINAL REPORT06/02/2023 7:05 AM - Electronically signed by Ruben Verduzco MD
[2023-06-02] MEDS ORDERED: CELECOXIB 200 MG PO SCH (09:00)
[2023-06-02] MEDS: NexIUM PO SCH ×2 (09:33→21:14)
[2023-06-02] MEDS: CELEBREX PO SCH (09:33)
[2023-06-02] MEDS: COREG TAB 12.5 MG PO SCH ×2 (09:34→21:15)
[2023-06-02] MEDS: SENOKOT PO SCH (09:34)
[2023-06-02] MEDS: SINGULAIR TAB 10 MG PO SCH (09:34)
[2023-06-02] MEDS: PLAVIX PO SCH (09:34)
[2023-06-02] MEDS: FOLIC ACID TAB 1 MG PO SCH (09:34)
[2023-06-02] MEDS: NORCO 10/325 TAB PO SCH ×2 (09:34→21:15)
[2023-06-02] MEDS: FERROUS GLUCONATE PO SCH (09:34)
[2023-06-02] MEDS: COLACE CAP 100 MG PO SCH ×2 (09:35→21:15)
[2023-06-02] MEDS: MAGIC MOUTHWASH (Orig. Formula) MT SCH ×4 (09:35→21:30)
[2023-06-02] MEDS: LASIX IVP SCH (09:35)
[2023-06-02] MEDS: VOLTAREN 1 % GEL MULTI DOSE TUBE TOP SCH ×2 (09:35→21:26)
[2023-06-02] MEDS: PROVENTIL NEB TX 0.083% 2.5MG/ 3ML NEB SCH ×2 (09:46→20:05)
[2023-06-02] MEDS: PULMICORT NEB TX 0.5 MG NEB SCH ×2 (09:46→20:05)
[2023-06-02] MEDS ORDERED: DULCOLAX TAB EC 5 MG PO ONE (10:39)
[2023-06-02] MEDS: PAXLOVID CO-PACK (EUA) PO SCH ×2 (13:00→21:17)
[2023-06-02] MEDS: REQUIP PO SCH ×2 (14:28→21:27)
--- NOTE | 2023-06-02 19:15 | PCM.PROG ---
Progress Note - Progress Note for Day of Date of Exam: 06/02/23 - Subjective Subjective: IS CURRENTLY INPATIENT STATUS FOR TREATMENT OF COVID-19, ACUTE BRONCHITIS, LARYNGITIS, HYPOXIA, AND CHF. SHE HAS A PMH OF ANEMIA, CAD, DYSLIPIDEMIA, GERD, AND HTN. TODAY, SHE IS ALERT AND ORIENTED, LYING IN BED ON MORNING ROUNDS. SHE CONTINUES WITH A NON-PRODUCTIVE COUGH, SORE THROAT, AND WEAKNESS THIS MORNING. SHE ALSO REPORTS CRAMPING OF BILATERAL LOWER EXTREMITIES. SHE DOES ADMIT TO SLIGHT IMPROVEMENT IN SYMPTOMS SINCE ADMISSION. ON EXAMINATION, HEART IS REGULAR IN RATE AND RHYTHM. BILATERAL LUNGS ARE NOTED WITH DIMINISHED LUNG SOUNDS THROUGHOUT. ABDOMEN IS ROUND, SOFT, AND NON-TENDER WITH NORMAL BOWEL SOUNDS NOTED IN ALL QUADRANTS. GOOD RANGE OF MOTION NOTED TO UPPER AND LOWER EXTREMITIES WITH NO EDEMA NOTED. HER VITALS THIS MORNING ARE: 98.5-86-20-96%-100/53. LABS WERE OBTAINED. WBC 6.5, RBC 4.25, HGB 13, HCT 39.4, SODIUM 137, POTASSIUM 4.2, CHLORIDE 100, BUN 19, CREATININE 0.98, GLUCOSE 96, CALCIUM 7.9, TOTAL BILI 0.40, AST 112, ALT 50, ALK PHOS 91, BNP 192, TOTAL PROTEIN 6.6, ALBUMIN 2.5. A CHEST XRAY WAS OBTAINED AND REVEALED: Cardiomegaly without definite congestive heart failure. No definite acute infiltrates. SHE IS CURRENTLY RECEIVING ROCEPHIN 1G IV DAILY, PULMICORT NEBS BID, ALBUTEROL NEBS QID, LASIX 20MG IV DAILY, MAGIC MOUTHWASH QID, TYLENOL 650MG PO Q6H PRN. WE WILL RESUME HER HOME MEDICATIONS OF COREG, CELEBREX, KLONOPIN, PLAVIX, VOLTAREN GEL, COLACE, NEXIUM, FOLIC ACID, NEURONTIN, NORCO, SINGULAIR, ZOFRAN, XARELTO, CRESTOR, SENOKOT, AND HEMOCYTE PLUS. WE WILL ADD REQUIP 0.5MG BID AND CONTINUE WITH CURRENT PLAN OF CARE TODAY. OTHERWISE, WE WILL FOLLOW UP WITH AM LABS AND CHEST XRAY AND CONTINUE TO MONITOR. TIME SPENT ON CLINICAL ASSESSMENT, REVIEWING LABS AND IMAGING, DECISION MAKING, AND DOCUMENTATION GREATER THAN 45 MINUTES. - Past Medical Family Social History Past Med/Fam/Surg Hx: No changes since H&P Allergies: Allergies codeine Allergy (Verified 02/06/17 22:08) hydromorphone [From Dilaudid] Allergy (Verified 02/06/17 22:08) influenza virus vaccine qs [id number] (36 mos, up) [From Single Use EZ Flu] Allergy (Verified 03/24/17 18:04) meperidine [From Demerol] Allergy (Verified 02/06/17 22:08) - Review of Systems ROS: No change since H&P - Vital Signs and I&O's Vital Signs: Vital Signs Temperature 98.5 F Temperature 98.5 F Pulse Rate [Right] 77 Pulse Rate [Right] 77 Respiratory Rate 20 Respiratory Rate 20 Blood Pressure [Right Arm] 93/43 Blood Pressure [Right Arm] 93/43 O2 Sat by Pulse Oximetry 94 O2 Sat by Pulse Oximetry 94 Intake and Output: Intake & Output 05/31/23 06/01/23 06/02/23 06/03/23 11:59 11:59 11:59 11:59 Intake Total 470 / 470 950 / 950 360 / 360 Output Total 2200 / 2200 900 / 900 400 / 400 Balance -1730 / -1730 50 / 50 -40 / -40 - Physical Exam Oriented: Normal Eyes: Normal Ear: Normal Nose: Normal Respiratory: Generalized, Diminished Cardiovascular: Normal : Normal Auscultation: Bowel Sounds: Normal Palpation: Normal Tenderness: Normal Skin: Normal Musculoskeletal: Normal Psychiatric: Normal Mood Description: Calm Affect: Normal Speech Pattern: Clear, Appropriate - Laboratory and Diagnostics Result Diagrams: 06/02/23 04:50 06/02/23 04:50 Labs: Laboratory WBC 6.5 X10^3/uL (3.6-10.0) 06/02/23 04:50 RBC 4.25 X10^6/uL (3.5-5.4) 06/02/23 04:50 Hgb 13.0 g/dL (12.0-16.0) 06/02/23 04:50 Hct 39.4 % (36.0-47.0) 06/02/23 04:50 MCV 92.9 fL (80.0-100.0) 06/02/23 04:50 MCH 30.7 pg (27.0-34.0) 06/02/23 04:50 MCHC 33.1 g/dL (33.0-35.0) 06/02/23 04:50 RDW 13.6 % (11.6-16.5) 06/02/23 04:50 Plt Count 174 X10^3/uL (150.0-450.0) 06/02/23 04:50 MPV 7.6 fL (7.4-11.0) 06/02/23 04:50 Neut % (Auto) 73.1 % (42.0-75.0) 06/02/23 04:50 Lymph % (Auto) 14.2 % (21.0-51.0) L 06/02/23 04:50 [place] % (Auto) 11.2 % (0.0-13.0) 06/02/23 04:50 Eos % (Auto) 1.1 % (0.9-2.9) 06/02/23 04:50 Baso % (Auto) 0.4 % (0.2-1.0) 06/02/23 04:50 Neut # (Auto) 4.7 x10^3/uL (2.2-4.8) 06/02/23 04:50 Lymph # (Auto) 0.9 X10^3/uL (1.3-2.9) L 06/02/23 04:50 [place] # (Auto) 0.7 x10^3/uL (0.3-0.8) 06/02/23 04:50 Eos # (Auto) 0.1 x10^3/uL (0.0-0.2) 06/02/23 04:50 Baso # (Auto) 0.0 X10^3/uL (0.0-0.1) 06/02/23 04:50 Absolute Nucleated RBC 0.0 /100WBC 06/02/23 04:50 Sodium 137 mmol/L (136-145) 06/02/23 04:50 Corrected Sodium TNP 06/02/23 04:50 Potassium 4.2 mmol/L (3.5-5.1) 06/02/23 04:50 Chloride 100 mmol/L (98-107) 06/02/23 04:50 Carbon Dioxide 34.3 mmol/L (21-32) H 06/02/23 04:50 BUN 19 mg/dL (7-18) H 06/02/23 04:50 Creatinine 0.98 mg/dL (0.55-1.02) 06/02/23 04:50 Est GFR (MDRD) Af Amer > 60 (>60) 06/02/23 04:50 Est GFR (MDRD) Non-Af 57 (>60) L 06/02/23 04:50 Glucose 96 mg/dL (65-99) 06/02/23 04:50 Calcium 7.9 mg/dL (8.5-10.1) L 06/02/23 04:50 Corrected Calcium 9.1 mg/dL (8.5-10.1) 06/02/23 04:50 Magnesium 2.1 mg/dL (2.0-2.9) 06/02/23 04:50 Total Bilirubin 0.40 mg/dL (0.2-1.0) 06/02/23 04:50 AST 112 Units/L (15-37) H 06/02/23 04:50 ALT 50 Units/L (12-78) 06/02/23 04:50 Alkaline Phosphatase 91 Units/L (46-116) 06/02/23 04:50 Creatine Kinase 103 Units/L (26-192) 05/31/23 17:48 Troponin I High Sens 10.5 ng/L (4.0-60.0) 05/31/23 17:48 B-Natriuretic Peptide 192 pg/mL (0-79) H 06/02/23 04:50 Total Protein 6.6 g/dL (6.4-8.2) 06/02/23 04:50 Albumin 2.5 g/dL (3.4-5.0) L 06/02/23 04:50 Globulin 4.1 g/dL (2.5-4.5) 06/02/23 04:50 Albumin/Globulin Ratio 0.6 Ratio (1.1-2.1) L 06/02/23 04:50 Specimen Type Catherized urine 05/31/23 20:37 Urine Color Yellow (YELLOW) 05/31/23 20:37 Urine Appearance Clear (CLEAR) 05/31/23 20:37 Urine pH 6.5 (5.0 - 8.0) 05/31/23 20:37 Ur Specific [place] 1.010 (1.000-1.030) 05/31/23 20:37 Urine Protein 1+ (NEGATIVE) 05/31/23 20:37 Urine Glucose (UA) Negative (NEGATIVE) 05/31/23 20:37 Urine Ketones Negative (NEGATIVE) 05/31/23 20:37 Urine Blood 1+ (NEGATIVE) 05/31/23 20:37 Urine Nitrite Negative (NEGATIVE) 05/31/23 20:37 Urine Bilirubin Negative (NEGATIVE) 05/31/23 20:37 Urine Urobilinogen Normal (NORMAL) 05/31/23 20:37 Ur Leukocyte Esterase Negative (NEGATIVE) 05/31/23 20:37 Urine RBC 0-2 /HPF (0-3) 05/31/23 20:37 Urine WBC None seen /HPF (0-5) 05/31/23 20:37 Ur Squamous Epith Cells Rare /HPF (NEGATIVE) 05/31/23 20:37 Urine Bacteria Negative /HPF (NEGATIVE) 05/31/23 20:37 Ur Culture Indicated? No/not indicated 05/31/23 20:37 SARS-CoV-2 (PCR) Positive (NEGATIVE) A 05/31/23 17:52 Influenza Type A (PCR) Negative (NEGATIVE) 05/31/23 17:52 Influenza Type B (PCR) Negative (NEGATIVE) 05/31/23 17:52 RSV (PCR) Negative (NEGATIVE) 05/31/23 17:52 S. pyogenes (TEM-PCR) Not detected (NOT DETECT) 05/31/23 17:52 - Plan (1) COVID-19 virus infection Status: Acute Plan: ROCEPHIN 1G IV DAILY, PULMICORT NEBS BID, ALBUTEROL NEBS QID, LASIX 20MG IV DAILY, MAGIC MOUTHWASH QID, TYLENOL 650MG PO Q6H PRN. WE WILL RESUME HER HOME MEDICATIONS OF COREG, CELEBREX, KLONOPIN, PLAVIX, VOLTAREN GEL, COLACE, NEXIUM, FOLIC ACID, NEURONTIN, NORCO, SINGULAIR, ZOFRAN, XARELTO, CRESTOR, SENOKOT, AND HEMOCYTE PLUS. (2) Acute bronchitis Status: Acute Qualifiers: Bronchitis organism: unspecified organism Qualified Code(s): J20.9 - Acute bronchitis, unspecified (3) Laryngitis Status: Acute (4) Hypoxia Status: Acute (5) CHF (congestive heart failure) Status: Chronic Qualifiers: Heart failure type: combined systolic and diastolic Heart failure chronicity: acute on chronic Qualified Code(s): I50.43 - Acute on chronic combined systolic (congestive) and diastolic (congestive) heart failure (6) Anemia Status: Chronic Qualifiers: Anemia type: iron deficiency [place] deficiency anemia type: chronic blood loss Qualified Code(s): D50.0 - Iron deficiency anemia secondary to blood loss (chronic) (7) Coronary artery disease Status: Chronic Qualifiers: Coronary Disease-Associated Artery/Lesion type: [place] artery [place] vs. transplanted heart: [place] heart Associated angina: with stable angina Qualified Code(s): I25.118 - Atherosclerotic heart disease of [place] coronary artery with other forms of angina pectoris (8) Dyslipidemia Status: Chronic (9) GERD (gastroesophageal reflux disease) Status: Chronic Qualifiers: Esophagitis presence: esophagitis presence not specified (10) HTN (hypertension) Status: Chronic Qualifiers: Hypertension type: primary hypertension Qualified Code(s): I10 - Essential (primary) hypertension
[2023-06-02] MEDS: XARELTO PO SCH (21:15)
[2023-06-02] MEDS: KLONOPIN TAB 0.5 MG PO SCH (21:15)
[2023-06-03] MEDS: NEURONTIN CAP 300 MG PO SCH ×3 (05:50→21:31)
--- NOTE | 2023-06-03 05:56 | RAD ---
EXAM:CHEST, 1 VIEWHISTORY:SOB, COVID ;COMPARISON:06/02/2023FINDINGS:The trachea is midline. The cardiac silhouette is mildly enlarged.. The lungs are clear without focal infiltrate or effusion. The bony thorax is unremarkable.IMPRESSION:Mild cardiomegalyNo active cardiopulmonary diseaseTHIS IS AN ELECTRONICALLY VERIFIED FINAL REPORT06/03/2023 5:43 AM - Electronically signed by Santiago Dallas MD
[2023-06-03 06:40] LABS: BASOPHILS % (AUTO) 0.4 % (0.2-1.0); EOSINOPHILS # (AUTO) 0.2 x10^3/uL (0.0-0.2); EOSINOPHILS % (AUTO) 3.9 % (0.9-2.9); HEMOGLOBIN 12.2 g/dL (12.0-16.0); LYMPHOCYTES # (AUTO) 1.2 X10^3/uL (1.3-2.9); LYMPHOCYTES % (AUTO) 24.3 % (21.0-51.0); MEAN CORPUSCULAR HEMOGLOBIN 31.6 pg (27.0-34.0); MEAN CORPUSCULAR HGB CONC 32.9 g/dL (33.0-35.0); MEAN PLATELET VOLUME 7.6 fL (7.4-11.0); MONOCYTES # (AUTO) 0.7 x10^3/uL (0.3-0.8); MONOCYTES % (AUTO) 14.3 % (0.0-13.0); NEUTROPHILS # (AUTO) 2.8 x10^3/uL (2.2-4.8); NEUTROPHILS % (AUTO) 57.1 % (42.0-75.0); PLATELET COUNT 172 X10^3/uL (150.0-450.0); RED BLOOD COUNT 3.85 X10^6/uL (3.5-5.4); RED CELL DISTRIBUTION WIDTH 13.8 % (11.6-16.5)
[2023-06-03 06:45] LABS: ALANINE AMINOTRANSFERASE 49 Units/L (12-78); ALBUMIN 2.3 g/dL (3.4-5.0); ALKALINE PHOSPHATASE 99 Units/L (46-116); ASPARTATE AMINO TRANSFERASE 55 Units/L (15-37); BLOOD UREA NITROGEN 22 mg/dL (7-18); CALCIUM 7.6 mg/dL (8.5-10.1); CARBON DIOXIDE 33.5 mmol/L (21-32); CHLORIDE 100 mmol/L (98-107); CREATININE 1.08 mg/dL (0.55-1.02); GLUCOSE 99 mg/dL (65-99); POTASSIUM 3.8 mmol/L (3.5-5.1); SODIUM 137 mmol/L (136-145); TOTAL PROTEIN 6.3 g/dL (6.4-8.2); eGFR NON BLACK RACES 51 (>60)
[2023-06-03] MEDS ORDERED: K-DUR TAB 20 MEQ PO SCH (08:00)
[2023-06-03] MEDS: PROVENTIL NEB TX 0.083% 2.5MG/ 3ML NEB SCH ×2 (08:59→20:53)
[2023-06-03] MEDS: PULMICORT NEB TX 0.5 MG NEB SCH ×2 (08:59→20:53)
[2023-06-03] MEDS ORDERED: CONSULT PHARMACY - POTASSIUM & MAGNESIUM XX SCH (09:00)
[2023-06-03] MEDS ORDERED: DULCOLAX TAB EC 5 MG PO ONE (10:09)
[2023-06-03] MEDS: SINGULAIR TAB 10 MG PO SCH (10:17)
[2023-06-03] MEDS: FOLIC ACID TAB 1 MG PO SCH (10:17)
[2023-06-03] MEDS: COREG TAB 12.5 MG PO SCH ×2 (10:17→21:29)
[2023-06-03] MEDS: FERROUS GLUCONATE PO SCH (10:18)
[2023-06-03] MEDS: REQUIP PO SCH ×2 (10:18→21:27)
[2023-06-03] MEDS: SENOKOT PO SCH (10:18)
[2023-06-03] MEDS: COLACE CAP 100 MG PO SCH ×2 (10:19→21:32)
[2023-06-03] MEDS: NORCO 10/325 TAB PO SCH ×2 (10:21→21:31)
[2023-06-03] MEDS: LASIX IVP SCH (10:22)
[2023-06-03] MEDS: CELEBREX PO SCH (10:22)
[2023-06-03] MEDS: NexIUM PO SCH ×2 (10:22→21:32)
[2023-06-03] MEDS: PAXLOVID CO-PACK (EUA) PO SCH ×2 (10:22→21:29)
[2023-06-03] MEDS: MAGIC MOUTHWASH (Orig. Formula) MT SCH ×4 (10:24→22:29)
[2023-06-03] MEDS: VOLTAREN 1 % GEL MULTI DOSE TUBE TOP SCH ×2 (10:24→22:30)
--- NOTE | 2023-06-03 11:11 | PCM.PROG ---
Progress Note - Progress Note for Day of Date of Exam: 06/03/23 - Subjective Subjective: IS CURRENTLY INPATIENT STATUS FOR TREATMENT OF COVID-19, ACUTE BRONCHITIS, LARYNGITIS, HYPOXIA, AND CHF. SHE HAS A PMH OF ANEMIA, CAD, DYSLIPIDEMIA, GERD, AND HTN. TODAY, SHE IS ALERT AND ORIENTED, LYING IN BED ON MORNING ROUNDS. SHE CONTINUES WITH A NON-PRODUCTIVE COUGH, SORE THROAT, AND WEAKNESS THIS MORNING. SHE ALSO REPORTS CONSITIPATION. SHE DOES ADMIT TO SLIGHT IMPROVEMENT IN COUGH AND SORE THROAT SINCE YESTERDAY. ON EXAMINATION, HEART IS REGULAR IN RATE AND RHYTHM. BILATERAL LUNGS ARE NOTED WITH DIMINISHED LUNG SOUNDS THROUGHOUT. ABDOMEN IS ROUND, SOFT, AND NON-TENDER WITH NORMAL BOWEL SOUNDS NOTED IN ALL QUADRANTS. GOOD RANGE OF MOTION NOTED TO UPPER AND LOWER EXTREMITIES WITH NO EDEMA NOTED. HER VITALS THIS MORNING ARE: 97.8-64-21-93%-100/56. LABS WERE OBTAINED. WBC5.0, RBC 3.85, HGB 12.2, HCT 37.0, PLT COUNT 172, SODIUM 137, POTASSIUM 3.8, CHLORIDE 100, BUN 22, CREATININE 1.08, GLUCOSE 99, CALCIUM 7.6, TOTAL BILI 0.30, AST 55, ALT 49, ALK PHOS 99, BNP 108, TOTAL PROTEIN 6.3, ALBUMIN 2.3. A CHEST XRAY WAS OBTAINED AND REVEALED: The trachea is midline. The cardiac silhouette is mildly enlarged.. The lungs are clear without focal infiltrate or effusion. The bony thorax is unremarkable. SHE IS CURRENTLY RECEIVING ROCEPHIN 1G IV DAILY, PULMICORT NEBS BID, ALBUTEROL NEBS QID, LASIX 20MG IV DAILY, MAGIC MOUTHWASH QID, TYLENOL 650MG PO Q6H PRN, REQUIP 0.5MG BID. WE WILL RESUME HER HOME MEDICATIONS OF COREG, CELEBREX, KLONOPIN, PLAVIX, VOLTAREN GEL, COLACE, NEXIUM, FOLIC ACID, NEURONTIN, NORCO, SINGULAIR, ZOFRAN, XARELTO, CRESTOR, SENOKOT, AND HEMOCYTE PLUS. WE WILL ADMINISTER DULCOLAX 2 TABS TODAY. OTHERWISE, WE WILL CONTINUE WITH CURRENT PLAN OF CARE. WE WILL FOLLOW UP WITH AM LABS AND CHEST XRAY AND CONTINUE TO MONITOR. TIME SPENT ON CLINICAL ASSESSMENT, REVIEWING LABS AND IMAGING, DECISION MAKING, AND DOCUMENTATION GREATER THAN 45 MINUTES. - Past Medical Family Social History Past Med/Fam/Surg Hx: No changes since H&P Allergies: Allergies codeine Allergy (Verified 02/06/17 22:08) hydromorphone [From Dilaudid] Allergy (Verified 02/06/17 22:08) influenza virus vaccine qs 7255-0558 (36 mos, up) [From Single Use EZ Flu] Allergy (Verified 03/24/17 18:04) meperidine [From Demerol] Allergy (Verified 02/06/17 22:08) - Review of Systems ROS: No change since H&P - Vital Signs and I&O's Vital Signs: Vital Signs Temperature 97.8 F Pulse Rate [Right] 64 Pulse Rate 73 Respiratory Rate 21 Blood Pressure [Right Arm] 100/56 O2 Sat by Pulse Oximetry 95 O2 Sat by Pulse Oximetry 93 Intake and Output: Intake & Output 05/31/23 06/01/23 06/02/23 06/03/23 11:59 11:59 11:59 11:59 Intake Total 470 / 470 950 / 950 1250 / 1250 Output Total 2200 / 2200 900 / 900 740 / 740 Balance -1730 / -1730 50 / 50 510 / 510 - Physical Exam Oriented: Normal Eyes: Normal Ear: Normal Nose: Normal Respiratory: Generalized, Diminished Cardiovascular: Normal : Normal Auscultation: Bowel Sounds: Normal Tenderness: Normal Skin: Normal Musculoskeletal: Normal Psychiatric: Normal Mood Description: Calm Affect: Normal Speech Pattern: Clear, Appropriate - Laboratory and Diagnostics Result Diagrams: 06/03/23 05:50 06/03/23 05:50 Labs: Laboratory WBC 5.0 X10^3/uL (3.6-10.0) 06/03/23 05:50 RBC 3.85 X10^6/uL (3.5-5.4) 06/03/23 05:50 Hgb 12.2 g/dL (12.0-16.0) 06/03/23 05:50 Hct 37.0 % (36.0-47.0) 06/03/23 05:50 MCV 96.0 fL (80.0-100.0) 06/03/23 05:50 MCH 31.6 pg (27.0-34.0) 06/03/23 05:50 MCHC 32.9 g/dL (33.0-35.0) L 06/03/23 05:50 RDW 13.8 % (11.6-16.5) 06/03/23 05:50 Plt Count 172 X10^3/uL (150.0-450.0) 06/03/23 05:50 MPV 7.6 fL (7.4-11.0) 06/03/23 05:50 Neut % (Auto) 57.1 % (42.0-75.0) 06/03/23 05:50 Lymph % (Auto) 24.3 % (21.0-51.0) 06/03/23 05:50 [place] % (Auto) 14.3 % (0.0-13.0) H 06/03/23 05:50 Eos % (Auto) 3.9 % (0.9-2.9) H 06/03/23 05:50 Baso % (Auto) 0.4 % (0.2-1.0) 06/03/23 05:50 Neut # (Auto) 2.8 x10^3/uL (2.2-4.8) 06/03/23 05:50 Lymph # (Auto) 1.2 X10^3/uL (1.3-2.9) L 06/03/23 05:50 [place] # (Auto) 0.7 x10^3/uL (0.3-0.8) 06/03/23 05:50 Eos # (Auto) 0.2 x10^3/uL (0.0-0.2) 06/03/23 05:50 Baso # (Auto) 0.0 X10^3/uL (0.0-0.1) 06/03/23 05:50 Absolute Nucleated RBC 0.1 /100WBC 06/03/23 05:50 Sodium 137 mmol/L (136-145) 06/03/23 05:50 Corrected Sodium TNP 06/03/23 05:50 Potassium 3.8 mmol/L (3.5-5.1) 06/03/23 05:50 Chloride 100 mmol/L (98-107) 06/03/23 05:50 Carbon Dioxide 33.5 mmol/L (21-32) H 06/03/23 05:50 BUN 22 mg/dL (7-18) H 06/03/23 05:50 Creatinine 1.08 mg/dL (0.55-1.02) H 06/03/23 05:50 Est GFR (MDRD) Af Amer > 60 (>60) 06/03/23 05:50 Est GFR (MDRD) Non-Af 51 (>60) L 06/03/23 05:50 Glucose 99 mg/dL (65-99) 06/03/23 05:50 Calcium 7.6 mg/dL (8.5-10.1) L 06/03/23 05:50 Corrected Calcium 9.0 mg/dL (8.5-10.1) 06/03/23 05:50 Magnesium 2.3 mg/dL (2.0-2.9) 06/03/23 05:50 Total Bilirubin 0.30 mg/dL (0.2-1.0) 06/03/23 05:50 AST 55 Units/L (15-37) H 06/03/23 05:50 ALT 49 Units/L (12-78) 06/03/23 05:50 Alkaline Phosphatase 99 Units/L (46-116) 06/03/23 05:50 Creatine Kinase 103 Units/L (26-192) 05/31/23 17:48 Troponin I High Sens 10.5 ng/L (4.0-60.0) 05/31/23 17:48 B-Natriuretic Peptide 108 pg/mL (0-79) H 06/03/23 05:50 Total Protein 6.3 g/dL (6.4-8.2) L 06/03/23 05:50 Albumin 2.3 g/dL (3.4-5.0) L 06/03/23 05:50 Globulin 4.0 g/dL (2.5-4.5) 06/03/23 05:50 Albumin/Globulin Ratio 0.6 Ratio (1.1-2.1) L 06/03/23 05:50 Specimen Type Catherized urine 05/31/23 20:37 Urine Color Yellow (YELLOW) 05/31/23 20:37 Urine Appearance Clear (CLEAR) 05/31/23 20:37 Urine pH 6.5 (5.0 - 8.0) 05/31/23 20:37 Ur Specific [place] 1.010 (1.000-1.030) 05/31/23 20:37 Urine Protein 1+ (NEGATIVE) 05/31/23 20:37 Urine Glucose (UA) Negative (NEGATIVE) 05/31/23 20:37 Urine Ketones Negative (NEGATIVE) 05/31/23 20:37 Urine Blood 1+ (NEGATIVE) 05/31/23 20:37 Urine Nitrite Negative (NEGATIVE) 05/31/23 20:37 Urine Bilirubin Negative (NEGATIVE) 05/31/23 20:37 Urine Urobilinogen Normal (NORMAL) 05/31/23 20:37 Ur Leukocyte Esterase Negative (NEGATIVE) 05/31/23 20:37 Urine RBC 0-2 /HPF (0-3) 05/31/23 20:37 Urine WBC None seen /HPF (0-5) 05/31/23 20:37 Ur Squamous Epith Cells Rare /HPF (NEGATIVE) 05/31/23 20:37 Urine Bacteria Negative /HPF (NEGATIVE) 05/31/23 20:37 Ur Culture Indicated? No/not indicated 05/31/23 20:37 SARS-CoV-2 (PCR) Positive (NEGATIVE) A 05/31/23 17:52 Influenza Type A (PCR) Negative (NEGATIVE) 05/31/23 17:52 Influenza Type B (PCR) Negative (NEGATIVE) 05/31/23 17:52 RSV (PCR) Negative (NEGATIVE) 05/31/23 17:52 S. pyogenes (TEM-PCR) Not detected (NOT DETECT) 05/31/23 17:52 - Plan (1) COVID-19 virus infection Status: Acute Plan: ROCEPHIN 1G IV DAILY, PULMICORT NEBS BID, ALBUTEROL NEBS QID, LASIX 20MG IV DAILY, MAGIC MOUTHWASH QID, TYLENOL 650MG PO Q6H PRN, REQUIP 0.5MG BID. WE WILL RESUME HER HOME MEDICATIONS OF COREG, CELEBREX, KLONOPIN, PLAVIX, VOLTAREN GEL, COLACE, NEXIUM, FOLIC ACID, NEURONTIN, NORCO, SINGULAIR, ZOFRAN, XARELTO, CRESTOR, SENOKOT, AND HEMOCYTE PLUS. (2) Acute bronchitis Status: Acute Qualifiers: Bronchitis organism: unspecified organism Qualified Code(s): J20.9 - Acute bronchitis, unspecified (3) Laryngitis Status: Acute (4) Hypoxia Status: Acute (5) CHF (congestive heart failure) Status: Chronic Qualifiers: Heart failure type: combined systolic and diastolic Heart failure chronicity: acute on chronic Qualified Code(s): I50.43 - Acute on chronic combined systolic (congestive) and diastolic (congestive) heart failure (6) Anemia Status: Chronic Qualifiers: Anemia type: iron deficiency Iron deficiency anemia type: chronic blood loss Qualified Code(s): D50.0 - Iron deficiency anemia secondary to blood loss (chronic) (7) Coronary artery disease Status: Chronic Qualifiers: Coronary Disease-Associated Artery/Lesion type: [place] artery [place] vs. transplanted heart: [place] heart Associated angina: with stable angina Qualified Code(s): I25.118 - Atherosclerotic heart disease of [place] coronary artery with other forms of angina pectoris (8) Dyslipidemia Status: Chronic (9) GERD (gastroesophageal reflux disease) Status: Chronic Qualifiers: Esophagitis presence: esophagitis presence not specified (10) HTN (hypertension) Status: Chronic Qualifiers: Hypertension type: primary hypertension Qualified Code(s): I10 - Essential (primary) hypertension
[2023-06-03] MEDS: XARELTO PO SCH (21:28)
[2023-06-03] MEDS: KLONOPIN TAB 0.5 MG PO SCH (21:29)
[2023-06-03] MEDS: ROCEPHIN VIAL 1 GRAM 1 G in NS 100 ML IV 100 ML IV SCH (22:47)
[2023-06-04] MEDS: NEURONTIN CAP 300 MG PO SCH ×3 (05:58→21:08)
--- NOTE | 2023-06-04 06:21 | RAD ---
EXAM:CHEST, 1 VIEWHISTORY:SOB;COMPARISON:06/03/2023 r.br.br.br mildly enlarged.. The lungs are clear without focal infiltrate or effusion. The bony thorax is unremarkable. Old healed right and left rib fractures.IMPRESSION:Mild cardiomegalyNo active cardiopulmonary diseaseTHIS IS AN ELECTRONICALLY VERIFIED FINAL REPORT06/04/2023 6:18 AM - Electronically signed by Santiago Dallas MD
[2023-06-04 06:47] LABS: BASOPHILS % (AUTO) 0.5 % (0.2-1.0); EOSINOPHILS # (AUTO) 0.2 x10^3/uL (0.0-0.2); EOSINOPHILS % (AUTO) 4.1 % (0.9-2.9); HEMATOCRIT 37.8 % (36.0-47.0); HEMOGLOBIN 12.4 g/dL (12.0-16.0); LYMPHOCYTES # (AUTO) 1.5 X10^3/uL (1.3-2.9); LYMPHOCYTES % (AUTO) 31.6 % (21.0-51.0); MEAN CORPUSCULAR HEMOGLOBIN 31.4 pg (27.0-34.0); MEAN CORPUSCULAR HGB CONC 32.9 g/dL (33.0-35.0); MEAN CORPUSCULAR VOLUME 95.4 fL (80.0-100.0); MEAN PLATELET VOLUME 7.7 fL (7.4-11.0); MONOCYTES # (AUTO) 0.6 x10^3/uL (0.3-0.8); NEUTROPHILS # (AUTO) 2.5 x10^3/uL (2.2-4.8); NEUTROPHILS % (AUTO) 50.8 % (42.0-75.0); PLATELET COUNT 187 X10^3/uL (150.0-450.0); RED BLOOD COUNT 3.96 X10^6/uL (3.5-5.4); RED CELL DISTRIBUTION WIDTH 13.8 % (11.6-16.5); WHITE BLOOD COUNT 4.9 X10^3/uL (3.6-10.0)
[2023-06-04 07:15] LABS: ALANINE AMINOTRANSFERASE 41 Units/L (12-78); ALBUMIN 2.4 g/dL (3.4-5.0); ALKALINE PHOSPHATASE 104 Units/L (46-116); ASPARTATE AMINO TRANSFERASE 38 Units/L (15-37); BLOOD UREA NITROGEN 19 mg/dL (7-18); CALCIUM 7.6 mg/dL (8.5-10.1); CARBON DIOXIDE 32.1 mmol/L (21-32); CHLORIDE 102 mmol/L (98-107); COR CA(FOR HYPOALB) 8.9 mg/dL (8.5-10.1); CREATININE 0.87 mg/dL (0.55-1.02); GLUCOSE 84 mg/dL (65-99); POTASSIUM 3.6 mmol/L (3.5-5.1); SODIUM 138 mmol/L (136-145); TOTAL PROTEIN 6.5 g/dL (6.4-8.2); eGFR NON BLACK RACES > 60 (>60)
[2023-06-04] MEDS ORDERED: CONSULT PHARMACY - POTASSIUM & MAGNESIUM XX SCH (08:00)
[2023-06-04] MEDS: PULMICORT NEB TX 0.5 MG NEB SCH ×2 (08:59→20:22)
[2023-06-04] MEDS: PROVENTIL NEB TX 0.083% 2.5MG/ 3ML NEB SCH ×2 (08:59→20:22)
[2023-06-04] MEDS ORDERED: K-DUR TAB 20 MEQ PO SCH (09:00)
[2023-06-04] MEDS: NexIUM PO SCH ×2 (10:00→20:41)
[2023-06-04] MEDS: FOLIC ACID TAB 1 MG PO SCH (10:00)
[2023-06-04] MEDS: CELEBREX PO SCH (10:00)
[2023-06-04] MEDS: SENOKOT PO SCH (10:00)
[2023-06-04] MEDS: REQUIP PO SCH ×2 (10:00→20:40)
[2023-06-04] MEDS: LASIX IVP SCH (10:01)
[2023-06-04] MEDS: COLACE CAP 100 MG PO SCH ×2 (10:01→20:41)
[2023-06-04] MEDS: FERROUS GLUCONATE PO SCH (10:01)
[2023-06-04] MEDS: SINGULAIR TAB 10 MG PO SCH (10:01)
[2023-06-04] MEDS: COREG TAB 12.5 MG PO SCH ×2 (10:01→20:41)
[2023-06-04] MEDS: NORCO 10/325 TAB PO SCH ×2 (10:23→22:00)
[2023-06-04] MEDS: VOLTAREN 1 % GEL MULTI DOSE TUBE TOP SCH ×2 (10:24→20:43)
[2023-06-04] MEDS ORDERED: ASTELIN NASAL SPRAY ENOSTRIL ONE (10:41)
[2023-06-04] MEDS: ASTELIN NASAL SPRAY ENOSTRIL SCH ×2 (11:20→20:40)
[2023-06-04] MEDS: PAXLOVID CO-PACK (EUA) PO SCH ×2 (11:27→20:42)
[2023-06-04] MEDS: MAGIC MOUTHWASH (Orig. Formula) MT SCH ×4 (11:27→21:08)
[2023-06-04] MEDS ORDERED: PLAVIX PO SCH (12:00)
--- NOTE | 2023-06-04 13:17 | PCM.PROG ---
Progress Note - Progress Note for Day of Date of Exam: 06/04/23 - Subjective Subjective: IS CURRENTLY INPATIENT STATUS FOR TREATMENT OF COVID-19, ACUTE BRONCHITIS, LARYNGITIS, HYPOXIA, AND CHF. SHE HAS A PMH OF ANEMIA, CAD, DYSLIPIDEMIA, GERD, AND HTN. TODAY, SHE IS ALERT AND ORIENTED, LYING IN BED ON MORNING ROUNDS. SHE CONTINUES WITH A NON-PRODUCTIVE COUGH, SORE THROAT, NASAL CONGESTION, AND WEAKNESS THIS MORNING. SHE DOES ADMIT TO SLIGHT IMPROVEMENT IN COUGH AND SORE THROAT SINCE YESTERDAY. ON EXAMINATION, HEART IS REGULAR IN RATE AND RHYTHM. BILATERAL LUNGS ARE NOTED WITH DIMINISHED LUNG SOUNDS THROUGHOUT. ABDOMEN IS ROUND, SOFT, AND NON-TENDER WITH NORMAL BOWEL SOUNDS NOTED IN ALL QUADRANTS. GOOD RANGE OF MOTION NOTED TO UPPER AND LOWER EXTREMITIES WITH NO EDEMA NOTED. HER VITALS THIS MORNING ARE: 98.2-71-18-93%-108/52. LABS WERE OBTAINED. WBC 4.9, RBC 3.96, HGB 12.4, HCT 37.8, PLT COUNT 187, SODIUM 138, POTASSIUM 3.6, CHLORIDE 102, BUN 19, CREATININE 0.87, GLUCOSE 84, CALCIUM 7.6, TOTAL BILI 0.20, AST 38, ALT 41, ALK PHOS 104, BNP 98.7, TOTAL PROTEIN 6.5, ALBUMIN 2.4. A CHEST XRAY WAS OBTAINED AND REVEALED: Mild cardiomegaly. No active cardiopulmonary disease. SHE IS CURRENTLY RECEIVING ROCEPHIN 1G IV DAILY, PULMICORT NEBS BID, ALBUTEROL NEBS QID, LASIX 20MG IV DAILY, MAGIC MOUTHWASH QID, TYLENOL 650MG PO Q6H PRN, REQUIP 0.5MG BID. WE RESUMED HER HOME MEDICATIONS OF COREG, CELEBREX, KLONOPIN, PLAVIX, VOLTAREN GEL, COLACE, NEXIUM, FOLIC ACID, NEURONTIN, NORCO, SINGULAIR, ZOFRAN, XARELTO, CRESTOR, SENOKOT, AND HEMOCYTE PLUS. TODAY, WE WILL ADD ASTELIN NASAL SPRAY BID. OTHERWISE, WE WILL CONTINUE WITH CURRENT PLAN OF CARE. WE WILL FOLLOW UP WITH AM LABS AND CHEST XRAY AND CONTINUE TO MONITOR. TIME SPENT ON CLINICAL ASSESSMENT, REVIEWING LABS AND IMAGING, DECISION MAKING, AND DOCUMENTATION GREATER THAN 45 MINUTES. - Past Medical Family Social History Past Med/Fam/Surg Hx: No changes since H&P Allergies: Allergies codeine Allergy (Verified 02/06/17 22:08) hydromorphone [From Dilaudid] Allergy (Verified 02/06/17 22:08) influenza virus vaccine qs 0519-1792 (36 mos, up) [From Single Use EZ Flu] Allergy (Verified 03/24/17 18:04) meperidine [From Demerol] Allergy (Verified 02/06/17 22:08) - Review of Systems ROS: No change since H&P - Vital Signs and I&O's Vital Signs: Vital Signs Temperature 98.4 F Temperature 98.2 F Pulse Rate [Right] 77 Pulse Rate [Right] 71 Pulse Rate 82 Respiratory Rate 18 Respiratory Rate 18 Blood Pressure [Right Calf] 133/57 Blood Pressure [Right Calf] 108/52 O2 Sat by Pulse Oximetry 93 O2 Sat by Pulse Oximetry 99 O2 Sat by Pulse Oximetry 93 Intake and Output: Intake & Output 06/02/23 06/03/23 06/04/23 06/05/23 11:59 11:59 11:59 11:59 Intake Total 950 / 950 1250 / 1250 1390 / 1390 Output Total 900 / 900 740 / 740 1620 / 1620 Balance 50 / 50 510 / 510 -230 / -230 - Physical Exam Oriented: Normal Eyes: Normal Ear: Normal Nose: Normal Respiratory: Generalized, Diminished Cardiovascular: Normal : Normal Auscultation: Bowel Sounds: Normal Tenderness: Normal Skin: Normal Musculoskeletal: Normal Psychiatric: Normal Mood Description: Calm Affect: Normal Speech Pattern: Clear, Appropriate - Laboratory and Diagnostics Result Diagrams: 06/04/23 05:18 06/04/23 05:18 Labs: Laboratory WBC 4.9 X10^3/uL (3.6-10.0) 06/04/23 05:18 RBC 3.96 X10^6/uL (3.5-5.4) 06/04/23 05:18 Hgb 12.4 g/dL (12.0-16.0) 06/04/23 05:18 Hct 37.8 % (36.0-47.0) 06/04/23 05:18 MCV 95.4 fL (80.0-100.0) 06/04/23 05:18 MCH 31.4 pg (27.0-34.0) 06/04/23 05:18 MCHC 32.9 g/dL (33.0-35.0) L 06/04/23 05:18 RDW 13.8 % (11.6-16.5) 06/04/23 05:18 Plt Count 187 X10^3/uL (150.0-450.0) 06/04/23 05:18 MPV 7.7 fL (7.4-11.0) 06/04/23 05:18 Neut % (Auto) 50.8 % (42.0-75.0) 06/04/23 05:18 Lymph % (Auto) 31.6 % (21.0-51.0) 06/04/23 05:18 [place]onald % (Auto) 13.0 % (0.0-13.0) 06/04/23 05:18 Eos % (Auto) 4.1 % (0.9-2.9) H 06/04/23 05:18 Baso % (Auto) 0.5 % (0.2-1.0) 06/04/23 05:18 Neut # (Auto) 2.5 x10^3/uL (2.2-4.8) 06/04/23 05:18 Lymph # (Auto) 1.5 X10^3/uL (1.3-2.9) 06/04/23 05:18 [place]cdonald # (Auto) 0.6 x10^3/uL (0.3-0.8) 06/04/23 05:18 Eos # (Auto) 0.2 x10^3/uL (0.0-0.2) 06/04/23 05:18 Baso # (Auto) 0.0 X10^3/uL (0.0-0.1) 06/04/23 05:18 Absolute Nucleated RBC 0.3 /100WBC 06/04/23 05:18 Sodium 138 mmol/L (136-145) 06/04/23 05:18 Corrected Sodium TNP 06/04/23 05:18 Potassium 3.6 mmol/L (3.5-5.1) 06/04/23 05:18 Chloride 102 mmol/L (98-107) 06/04/23 05:18 Carbon Dioxide 32.1 mmol/L (21-32) H 06/04/23 05:18 BUN 19 mg/dL (7-18) H 06/04/23 05:18 Creatinine 0.87 mg/dL (0.55-1.02) 06/04/23 05:18 Est GFR (MDRD) Af Amer > 60 (>60) 06/04/23 05:18 Est GFR (MDRD) Non-Af > 60 (>60) 06/04/23 05:18 Glucose 84 mg/dL (65-99) 06/04/23 05:18 Calcium 7.6 mg/dL (8.5-10.1) L 06/04/23 05:18 Corrected Calcium 8.9 mg/dL (8.5-10.1) 06/04/23 05:18 Magnesium 2.3 mg/dL (2.0-2.9) 06/03/23 05:50 Total Bilirubin 0.20 mg/dL (0.2-1.0) 06/04/23 05:18 AST 38 Units/L (15-37) H 06/04/23 05:18 ALT 41 Units/L (12-78) 06/04/23 05:18 Alkaline Phosphatase 104 Units/L (46-116) 06/04/23 05:18 Creatine Kinase 103 Units/L (26-192) 05/31/23 17:48 Troponin I High Sens 10.5 ng/L (4.0-60.0) 05/31/23 17:48 B-Natriuretic Peptide 98.7 pg/mL (0-79) H 06/04/23 05:18 Total Protein 6.5 g/dL (6.4-8.2) 06/04/23 05:18 Albumin 2.4 g/dL (3.4-5.0) L 06/04/23 05:18 Globulin 4.1 g/dL (2.5-4.5) 06/04/23 05:18 Albumin/Globulin Ratio 0.6 Ratio (1.1-2.1) L 06/04/23 05:18 Specimen Type Catherized urine 05/31/23 20:37 Urine Color Yellow (YELLOW) 05/31/23 20:37 Urine Appearance Clear (CLEAR) 05/31/23 20:37 Urine pH 6.5 (5.0 - 8.0) 05/31/23 20:37 Ur Specific [place] 1.010 (1.000-1.030) 05/31/23 20:37 Urine Protein 1+ (NEGATIVE) 05/31/23 20:37 Urine Glucose (UA) Negative (NEGATIVE) 05/31/23 20:37 Urine Ketones Negative (NEGATIVE) 05/31/23 20:37 Urine Blood 1+ (NEGATIVE) 05/31/23 20:37 Urine Nitrite Negative (NEGATIVE) 05/31/23 20:37 Urine Bilirubin Negative (NEGATIVE) 05/31/23 20:37 Urine Urobilinogen Normal (NORMAL) 05/31/23 20:37 Ur Leukocyte Esterase Negative (NEGATIVE) 05/31/23 20:37 Urine RBC 0-2 /HPF (0-3) 05/31/23 20:37 Urine WBC None seen /HPF (0-5) 05/31/23 20:37 Ur Squamous Epith Cells Rare /HPF (NEGATIVE) 05/31/23 20:37 Urine Bacteria Negative /HPF (NEGATIVE) 05/31/23 20:37 Ur Culture Indicated? No/not indicated 05/31/23 20:37 SARS-CoV-2 (PCR) Positive (NEGATIVE) A 05/31/23 17:52 Influenza Type A (PCR) Negative (NEGATIVE) 05/31/23 17:52 Influenza Type B (PCR) Negative (NEGATIVE) 05/31/23 17:52 RSV (PCR) Negative (NEGATIVE) 05/31/23 17:52 S. pyogenes (TEM-PCR) Not detected (NOT DETECT) 05/31/23 17:52 - Plan (1) COVID-19 virus infection Status: Acute Plan: ROCEPHIN 1G IV DAILY, PULMICORT NEBS BID, ALBUTEROL NEBS QID, LASIX 20MG IV DAILY, MAGIC MOUTHWASH QID, TYLENOL 650MG PO Q6H PRN, REQUIP 0.5MG BID. WE WILL RESUME HER HOME MEDICATIONS OF COREG, CELEBREX, KLONOPIN, PLAVIX, VOLTAREN GEL, COLACE, NEXIUM, FOLIC ACID, NEURONTIN, NORCO, SINGULAIR, ZOFRAN, XARELTO, CRESTOR, SENOKOT, AND HEMOCYTE PLUS. (2) Acute bronchitis Status: Acute Qualifiers: Bronchitis organism: unspecified organism Qualified Code(s): J20.9 - Acute bronchitis, unspecified (3) Laryngitis Status: Acute (4) Hypoxia Status: Acute (5) CHF (congestive heart failure) Status: Chronic Qualifiers: Heart failure type: combined systolic and diastolic Heart failure chronicity: acute on chronic Qualified Code(s): I50.43 - Acute on chronic combined systolic (congestive) and diastolic (congestive) heart failure (6) Anemia Status: Chronic Qualifiers: Anemia type: iron deficiency Iron deficiency anemia type: chronic blood loss Qualified Code(s): D50.0 - Iron deficiency anemia secondary to blood loss (chronic) (7) Coronary artery disease Status: Chronic Qualifiers: Coronary Disease-Associated Artery/Lesion type: [place] artery [place] vs. transplanted heart: [place] heart Associated angina: with stable angina Qualified Code(s): I25.118 - Atherosclerotic heart disease of [place] coronary artery with other forms of angina pectoris (8) Dyslipidemia Status: Chronic (9) GERD (gastroesophageal reflux disease) Status: Chronic Qualifiers: Esophagitis presence: esophagitis presence not specified (10) HTN (hypertension) Status: Chronic Qualifiers: Hypertension type: primary hypertension Qualified Code(s): I10 - Essential (primary) hypertension
[2023-06-04] MEDS: KLONOPIN TAB 0.5 MG PO SCH (20:40)
[2023-06-04] MEDS: XARELTO PO SCH (20:41)
[2023-06-04] MEDS: ROCEPHIN VIAL 1 GRAM 1 G in NS 100 ML IV 100 ML IV SCH (20:43)
--- NOTE | 2023-06-05 05:14 | RAD ---
EXAM:CHEST, 1 VIEWHISTORY:SOB ;COMPARISON:06/04/2023FINDINGS:The trachea is midline. The cardiac silhouette is mildly enlarged.. The lungs are clear without focal infiltrate or effusion. The bony thorax is unremarkable.IMPRESSION:Mild cardiomegalyNo active cardiopulmonary diseaseTHIS IS AN ELECTRONICALLY VERIFIED FINAL REPORT06/05/2023 5:10 AM - Electronically signed by Santiago Dallas MD
[2023-06-05 06:23] LABS: BASOPHILS % (AUTO) 0.5 % (0.2-1.0); EOSINOPHILS # (AUTO) 0.2 x10^3/uL (0.0-0.2); EOSINOPHILS % (AUTO) 3.2 % (0.9-2.9); HEMATOCRIT 34.9 % (36.0-47.0); HEMOGLOBIN 11.4 g/dL (12.0-16.0); LYMPHOCYTES % (AUTO) 40.7 % (21.0-51.0); MEAN CORPUSCULAR HGB CONC 32.7 g/dL (33.0-35.0); MEAN CORPUSCULAR VOLUME 91.8 fL (80.0-100.0); MEAN PLATELET VOLUME 7.4 fL (7.4-11.0); MONOCYTES # (AUTO) 0.6 x10^3/uL (0.3-0.8); MONOCYTES % (AUTO) 11.3 % (0.0-13.0); NEUTROPHILS # (AUTO) 2.1 x10^3/uL (2.2-4.8); NEUTROPHILS % (AUTO) 44.3 % (42.0-75.0); PLATELET COUNT 202 X10^3/uL (150.0-450.0); RED CELL DISTRIBUTION WIDTH 13.6 % (11.6-16.5); WHITE BLOOD COUNT 4.9 X10^3/uL (3.6-10.0)
[2023-06-05 06:33] LABS: ALANINE AMINOTRANSFERASE 31 Units/L (12-78); ALBUMIN 2.1 g/dL (3.4-5.0); ALKALINE PHOSPHATASE 110 Units/L (46-116); ASPARTATE AMINO TRANSFERASE 25 Units/L (15-37); BLOOD UREA NITROGEN 15 mg/dL (7-18); CALCIUM 7.5 mg/dL (8.5-10.1); CARBON DIOXIDE 32.6 mmol/L (21-32); CHLORIDE 105 mmol/L (98-107); CREATININE 0.78 mg/dL (0.55-1.02); GLUCOSE 89 mg/dL (65-99); POTASSIUM 4.5 mmol/L (3.5-5.1); SODIUM 140 mmol/L (136-145); eGFR NON BLACK RACES > 60 (>60)
[2023-06-05 08:40] VITALS: BP 113/53; PULSE 61; RESP 18; TEMP 98.6; O2SAT 93
[2023-06-05] MEDS: PROVENTIL NEB TX 0.083% 2.5MG/ 3ML NEB SCH (08:55)
[2023-06-05] MEDS: PULMICORT NEB TX 0.5 MG NEB SCH (08:55)
[2023-06-05] MEDS: NEURONTIN CAP 300 MG PO SCH ×2 (09:44→14:55)
[2023-06-05] MEDS: SINGULAIR TAB 10 MG PO SCH (09:45)
[2023-06-05] MEDS: NexIUM PO SCH (09:45)
[2023-06-05] MEDS: REQUIP PO SCH (09:45)
[2023-06-05] MEDS: COLACE CAP 100 MG PO SCH (09:45)
[2023-06-05] MEDS: COREG TAB 12.5 MG PO SCH (09:45)
[2023-06-05] MEDS: PAXLOVID CO-PACK (EUA) PO SCH (09:46)
[2023-06-05] MEDS: SENOKOT PO SCH (09:46)
[2023-06-05] MEDS: CELEBREX PO SCH (09:46)
[2023-06-05] MEDS: FERROUS GLUCONATE PO SCH (09:46)
[2023-06-05] MEDS: FOLIC ACID TAB 1 MG PO SCH (09:46)
[2023-06-05] MEDS: ASTELIN NASAL SPRAY ENOSTRIL SCH (09:47)
[2023-06-05] MEDS: LASIX IVP SCH (09:47)
[2023-06-05] MEDS: MAGIC MOUTHWASH (Orig. Formula) MT SCH ×2 (09:47→14:44)
[2023-06-05] MEDS: NORCO 10/325 TAB PO SCH (09:48)
[2023-06-05] MEDS: VOLTAREN 1 % GEL MULTI DOSE TUBE TOP SCH (09:48)
== END 2023-06-05 15:00 | DRG 177 ==
LOC: ER 17:23 → MED/SURG 17:23 → OBSVTOIN 20:39 → MED/SURG 21:19
PROVIDERS: ADMIT Internal Medicine; ATTEND Internal Medicine
DX: K21.9 Gastro-esophageal reflux disease without esophagitis; I50.43 Acute on chronic combined systolic (congestive) and diastolic (congestive) heart failure; I25.118 Atherosclerotic heart disease of native coronary artery with other forms of angina pectoris; J20.8 Acute bronchitis due to other specified organisms; R06.02 Shortness of breath; R51.9 Headache, unspecified; J44.9 Chronic obstructive pulmonary disease, unspecified; D50.0 Iron deficiency anemia secondary to blood loss (chronic); I48.91 Unspecified atrial fibrillation; E83.42 Hypomagnesemia; J04.0 Acute laryngitis; E78.2 Mixed hyperlipidemia; Z66 Do not resuscitate; I11.0 Hypertensive heart disease with heart failure; Z86.73 Personal history of transient ischemic attack (TIA), and cerebral infarction without residual deficits; U07.1 COVID-19

== ENCOUNTER 2024-03-14 11:58 | Inpatient (IN) ==
[2024-03-14 12:29] LABS: BASOPHILS # (AUTO) 0.1 X10^3/uL (0.0-0.1); BASOPHILS % (AUTO) 2.6 % (0.2-1.0); EOSINOPHILS # (AUTO) 0.2 x10^3/uL (0.0-0.2); HEMATOCRIT 39.2 % (36.0-47.0); LYMPHOCYTES # (AUTO) 0.9 X10^3/uL (1.3-2.9); LYMPHOCYTES % (AUTO) 17.3 % (21.0-51.0); MEAN CORPUSCULAR HEMOGLOBIN 31.7 pg (27.0-34.0); MEAN CORPUSCULAR HGB CONC 33.2 g/dL (33.0-35.0); MEAN CORPUSCULAR VOLUME 95.7 fL (80.0-100.0); MEAN PLATELET VOLUME 7.2 fL (7.4-11.0); MONOCYTES # (AUTO) 0.4 x10^3/uL (0.3-0.8); MONOCYTES % (AUTO) 7.4 % (0.0-13.0); NEUTROPHILS # (AUTO) 3.5 x10^3/uL (2.2-4.8); NEUTROPHILS % (AUTO) 69.7 % (42.0-75.0); PLATELET COUNT 190 X10^3/uL (150.0-450.0); RED BLOOD COUNT 4.09 X10^6/uL (3.5-5.4); RED CELL DISTRIBUTION WIDTH 14.6 % (11.6-16.5)
--- NOTE | 2024-03-14 12:34 | EKG ---
Test Reason : ams Blood Pressure : */* mmHG Vent. Rate : 62 BPM Atrial Rate : 62 BPM P-R Int : 150 ms QRS Dur : 86 ms QT Int : 418 ms P-R-T Axes : 54 46 48 degrees QTc Int : 424 ms Sinus rhythm with marked sinus arrhythmia Septal infarct , age undetermined Abnormal ECG When compared with ECG of 31-MAY-2023 17:51, Sinus rhythm has replaced Atrial fibrillation Septal infarct is now present Non-specific change in ST segment in Inferior leads Confirmed by Krish Ang MD ([id number]) on 03/14/2024 7:51:31 PM Referred By: Confirmed By: Krish Ang MD
[2024-03-14 12:37] LABS: ALANINE AMINOTRANSFERASE 61 Units/L (12-78); ALBUMIN 2.8 g/dL (3.4-5.0); ALKALINE PHOSPHATASE 143 Units/L (46-116); ASPARTATE AMINO TRANSFERASE 45 Units/L (15-37); BLOOD UREA NITROGEN 22 mg/dL (7-18); CALCIUM 9.3 mg/dL (8.5-10.1); CARBON DIOXIDE 36.1 mmol/L (21-32); CHLORIDE 105 mmol/L (98-107); COR CA(FOR HYPOALB) 10.3 mg/dL (8.5-10.1); CREATININE 1.16 mg/dL (0.55-1.02); GLUCOSE 104 mg/dL (65-99); POTASSIUM 5.2 mmol/L (3.5-5.1); SODIUM 145 mmol/L (136-145); TOTAL PROTEIN 6.7 g/dL (6.4-8.2); eGFR NON BLACK RACES 47 (>60)
[2024-03-14 12:39] LABS: ABG BASE EXCESS 10.9 mmol/L (-2.0-2.0)
[2024-03-14 12:40] LABS: ABG HCO3 37.2 mmol/L (22-26)
[2024-03-14 12:41] LABS: ABG ALLEN TEST POS
[2024-03-14] MEDS: DUONEB 0.5 MG/3 MG (3 mL) NEB ONE ×2 (13:02→15:56)
[2024-03-14 13:40] LABS: BILIRUBIN,URINE NEGATIVE (NEGATIVE); BLOOD/HEMOGLOBIN,URINE NEGATIVE (NEGATIVE); GLUCOSE, URINE NEGATIVE (NEGATIVE); KETONES,URINE NEGATIVE (NEGATIVE); LEUKOCYTE ESTERASE ,URINE 2+ (NEGATIVE); NITRITES,URINE NEGATIVE (NEGATIVE); PROTEIN,URINE 2+ (NEGATIVE); UROBILINOGEN,URINE NORMAL (NORMAL)
[2024-03-14 13:51] LABS: APPEARANCE,URINE CLEAR (CLEAR); BACTERIA,URINE 1+ /HPF (NEGATIVE); COLOR,URINE DARK YELLOW (YELLOW); RBC,URINE 0-2 /HPF (0-3); SQUAMOUS EPITHELIAL CELL,UR MODERATE /HPF (NEGATIVE)
--- NOTE | 2024-03-14 13:54 | CT ---
EXAM:BRAIN W/O CONHISTORY:Pt reports that yesterday morning she started noticing a jerking sensation in her hands. 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 ;COMPARISON:Head CT examination dated August 14, 2021TECHNIQUE:Multiple axial images of the head were obtained from the skull base to the vertex without administration of IV contrast.Sagittal and coronal reformatted images were performed. Automated exposure control (AEC) was utilized to adjust the MA and/or kV.FINDINGS:There is moderate sulcal and cisternal prominence as well as atherosclerotic change in the proximal intracranial carotid and vertebral arteries, which is not out of proportion to the patient's stated age. There is diffuse CT density alteration seen in the periventricular white matter of the high and mid-convexity, which is likely in the setting of small vessel disease and not out of proportion to the patient's stated age. There is no pathologic ventricular dilatation or CT imaging evidence for hydrocephalus or herniation syndrome. No midline shift is evident. No acute intraparenchymal hemorrhage or mass can be identified. If there remains a strong concern for any intra-cranial neoplasm, then follow-up with CT or MR imaging of the brain would be more sensitive to exclude any intra-cranial mass lesion. No extra-axial fluid collections are seen. No alteration in the attenuation of the brain parenchyma can be identified to suggest acute or subacute ischemic change. Also, if clinical symptoms are concerning for an acute CVA, then follow-up MRI with DWI sequencing is recommended. The extracranial structures are unremarkable. The paranasal sinuses and mastoid air cells are relatively clear.IMPRESSION:1. No acute intracranial process or acute bleed identified.2. Age-appropriate intra-cranial changes of advancing age.THIS IS AN ELECTRONICALLY VERIFIED FINAL [id number] 1:50 PM - Electronically signed by Allen Luo MD
--- NOTE | 2024-03-14 13:58 | DR.AMS ---
HPI Time Seen Time Seen by Provider: 03/14/24 12:19 PCP Primary Care Physician: Dr. 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 Pt states that she also has had some word searching. Pt is currently alert and oriented to person, place, time and situation. Pt denies any recent falls, headache, dizziness, or being off balance.On arrival, patient oxygen sats 70s-80s. at baseline, patient uses oxygen prn. Complaint Chief Complaint:: Pt reports that yesterday morning she started noticing a jerking sensation in her hands. 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 Pt states that she also has had some word searching. Pt is currently alert and oriented to person, place, time and situation. Pt denies any recent falls, headache, dizziness, or being off balance. COVID-19 Coronavirus risk:travel/contact w/high risk person: No Has patient experienced Coronavirus symptoms: No Source History Provided: Patient and [facility] Mode of Arrival Mode of Arrival: Stretcher Timing Onset of Chief Complaint: 03/14/24 PMH PMH Past Medical History: Yes Past Medical History: Anxiety, Arthritis, CHF, COPD, Coronary Artery Disease, Depression, Dyslipidemia, GERD, Hypertension and [place] Past Medical History Comment: polyneuropathy Past Surgical History: Yes Surgical History: Ortho Surgery Family History History of Family Medical Conditions: Yes Family Medical History: Diabetes Mellitus and Hypertension Social History Does patient currently use any type of tobacco product: No Have you used tobacco products in the last 12 months: No Type of Tobacco Use: None Does any household member use tobacco: No Alcohol Use: None Do you use any recreational Drugs:: No Lives With: Family Lives Where: Home Travel Risk Coronavirus risk:travel/contact w/high risk person: No Has patient experienced Coronavirus symptoms: No Infectious screening In the last 2 months have you had wt loss of >10#?: NO Have you had fever, night sweats or hemotysis?: No Have you traveled outside the country in the last 6 months?: No Isolation: Standard ROS Review of Systems Constitutional: No Symptoms Reported Eyes: No Symptoms Reported ENTM: No Symptoms Reported Respiratoy: No Symptoms Reported Cardiovascular: No Symptoms Reported Gastrointestinal/Abdominal: No Symptoms Reported Genitourinary: No Symptoms Reported Neurological: No Symptoms Reported Musculoskeletal: No Symptoms Reported Integumentary: No Symptoms Reported Hematologic/Lymphatic: No Symptoms Reported Endocrine: No Symptoms Reported Psychiatric: No Symptoms Reported All Other Systems: Reviewed and Negative PE Vitals Vital Signs: Temp Pulse Resp BP Pulse Ox O2 Del Method O2 Flow Rate 03/14/24 15:30 61 46 H 98 03/14/24 15:30 61 46 H 98 03/14/24 15:30 126/66 03/14/24 15:30 126/66 03/14/24 15:15 56 L 20 97 03/14/24 15:01 128/62 03/14/24 15:01 60 37 H 96 03/14/24 15:00 60 36 H 96 03/14/24 14:45 58 L 17 97 03/14/24 14:31 61 31 H 98 Nasal Cannula 2 03/14/24 14:31 137/60 03/14/24 14:30 60 17 99 Nasal Cannula 2 03/14/24 14:15 59 L 23 99 03/14/24 14:00 62 26 H 99 03/14/24 14:00 141/63 03/14/24 13:54 128/57 03/14/24 13:54 63 24 98 03/14/24 13:45 65 97 03/14/24 13:42 65 93 L 03/14/24 13:15 62 22 100 03/14/24 13:03 67 29 H 93 L 03/14/24 13:03 136/72 03/14/24 13:00 68 27 H 93 L 03/14/24 12:45 67 29 H 03/14/24 12:30 119/57 03/14/24 12:15 64 24 70 L Room Air 03/14/24 12:07 70 26 H 88 L Room Air 03/14/24 12:12 97.8 F 71 20 146/65 88 L Room Air General Limitations: No Limitations Head Head Exam: Normal Inspection, Atraumatic and Normocephalic Eyes Eye exam: Normal Appearance ENT ENT Exam: Normal Exam and Mucous Membranes Moist External Ear Exam: Normal External Inspection Neck Neck Exam: Normal Inspection Chest Chest Inspection: Normal Inspection Respiratory Respiratory Exam: Other (decreased lung sounds all throughout) Cardiovascular Cardiovascular Exam: Regular Rate, Normal Rhythm and Normal Heart Sounds Abdominal Exam Abdominal Exam: Normal Inspection and Soft Extremities Extremities Exam: Normal Inspection Back Back Exam: Normal Inspection MDM Differential Diagnosis Metabolic: Dehydration, Hypercalcemia and Hypoglycemia Structural: CVA and SAH Toxicologic: Medication Toxicity Infectious: Sepsis and UTI COURSE Treatment Treatment: Chest x-ray shows probably bilateral pneumonia. Patient given DuoNeb x 1, Solu-Medrol 80 mg x 1 and given Levaquin 750mg Patient reports some recent history of reflux so is questionable whether this is may be aspiration pneumonia. Considering how low her oxygen level were was in the ER, there might be some hypoxic encephalopathy playing a role into her altered mental status UTI also found to be positive. Labs reassuring. Will admit patient for hypoxic respiratory failure, bilateral pneumonia, UTI and altered mental status Discussed case with Dr. Noguera and he agreed to accept patient ROR Labs Reviewed 03/14/24 12:11 03/14/24 12:11 Laboratory: WBC 5.0 X10^3/uL (3.6-10.0) 03/14/24 12:11 RBC 4.09 X10^6/uL (3.5-5.4) 03/14/24 12:11 Hgb 13.0 g/dL (12.0-16.0) 03/14/24 12:11 Hct 39.2 % (36.0-47.0) 03/14/24 12:11 MCV 95.7 fL (80.0-100.0) 03/14/24 12:11 MCH 31.7 pg (27.0-34.0) 03/14/24 12:11 MCHC 33.2 g/dL (33.0-35.0) 03/14/24 12:11 RDW 14.6 % (11.6-16.5) 03/14/24 12:11 Plt Count 190 X10^3/uL (150.0-450.0) 03/14/24 12:11 MPV 7.2 fL (7.4-11.0) L 03/14/24 12:11 Neut % (Auto) 69.7 % (42.0-75.0) 03/14/24 12:11 Lymph % (Auto) 17.3 % (21.0-51.0) L 03/14/24 12:11 [place] % (Auto) 7.4 % (0.0-13.0) 03/14/24 12:11 Eos % (Auto) 3.0 % (0.9-2.9) H 03/14/24 12:11 Baso % (Auto) 2.6 % (0.2-1.0) H 03/14/24 12:11 Neut # (Auto) 3.5 x10^3/uL (2.2-4.8) 03/14/24 12:11 Lymph # (Auto) 0.9 X10^3/uL (1.3-2.9) L 03/14/24 12:11 [place] # (Auto) 0.4 x10^3/uL (0.3-0.8) 03/14/24 12:11 Eos # (Auto) 0.2 x10^3/uL (0.0-0.2) 03/14/24 12:11 Baso # (Auto) 0.1 X10^3/uL (0.0-0.1) 03/14/24 12:11 Absolute Nucleated RBC 0.1 /100WBC 03/14/24 12:11 Sample Site Rra 03/14/24 12:37 ABG pH 7.430 (7.35-7.45) 03/14/24 12:37 ABG pCO2 56.0 mmHg (35.0-45.0) H* 03/14/24 12:37 ABG pO2 51.0 mmHg (80.0-100.0) L 03/14/24 12:37 ABG HCO3 37.2 mmol/L (22-26) H* 03/14/24 12:37 ABG O2 Saturation 87.0 % (90-100) L 03/14/24 12:37 ABG Base Excess 10.9 mmol/L (-2.0-2.0) H 03/14/24 12:37 [place] Test Pos 03/14/24 12:37 A-a Gradient 29.0 mmHg 03/14/24 12:37 FiO2 21.0 03/14/24 12:37 Blood Gas Comments Pt derick well eb 03/14/24 12:37 Sodium 145 mmol/L (136-145) 03/14/24 12:11 Corrected Sodium TNP 03/14/24 12:11 Potassium 5.2 mmol/L (3.5-5.1) H 10/27/24 12:11 Chloride 105 mmol/L (98-107) 03/14/24 12:11 Carbon Dioxide 36.1 mmol/L (21-32) H 03/14/24 12:11 BUN 22 mg/dL (7-18) H 03/14/24 12:11 Creatinine 1.16 mg/dL (0.55-1.02) H 03/14/24 12:11 Est GFR (MDRD) Af Amer 57 (>60) L 03/14/24 12:11 Est GFR (MDRD) Non-Af 47 (>60) L 03/14/24 12:11 Glucose 104 mg/dL (65-99) H 03/14/24 12:11 Lactic Acid 0.6 mmol/L (0.4-2.0) 03/14/24 13:10 Calcium 9.3 mg/dL (8.5-10.1) 03/14/24 12:11 Corrected Calcium 10.3 mg/dL (8.5-10.1) H 03/14/24 12:11 Total Bilirubin 0.40 mg/dL (0.2-1.0) 03/14/24 12:11 AST 45 Units/L (15-37) H 03/14/24 12:11 ALT 61 Units/L (12-78) 03/14/24 12:11 Alkaline Phosphatase 143 Units/L (46-116) H 03/14/24 12:11 Troponin I High Sens 23.3 ng/L (4.0-60.0) 03/14/24 13:10 Total Protein 6.7 g/dL (6.4-8.2) 03/14/24 12:11 Albumin 2.8 g/dL (3.4-5.0) L 03/14/24 12:11 Globulin 3.9 g/dL (2.5-4.5) 03/14/24 12:11 Albumin/Globulin Ratio 0.7 Ratio (1.1-2.1) L 03/14/24 12:11 Specimen Type Clean catch urine 03/14/24 12:55 Urine Color Dark yellow (YELLOW) 03/14/24 12:55 Urine Appearance Clear (CLEAR) 03/14/24 12:55 Urine pH 6.0 (5.0 - 8.0) 03/14/24 12:55 Ur Specific [place] 1.020 (1.000-1.030) 03/14/24 12:55 Urine Protein 2+ (NEGATIVE) 03/14/24 12:55 Urine Glucose (UA) Negative (NEGATIVE) 03/14/24 12:55 Urine Ketones Negative (NEGATIVE) 03/14/24 12:55 Urine Blood Negative (NEGATIVE) 03/14/24 12:55 Urine Nitrite Negative (NEGATIVE) 03/14/24 12:55 Urine Bilirubin Negative (NEGATIVE) 03/14/24 12:55 Urine Urobilinogen Normal (NORMAL) 03/14/24 12:55 Ur Leukocyte Esterase 2+ (NEGATIVE) 03/14/24 12:55 Urine RBC 0-2 /HPF (0-3) 03/14/24 12:55 Urine WBC 10-20 /HPF (0-5) A 03/14/24 12:55 Ur Squamous Epith Cells Moderate /HPF (NEGATIVE) 03/14/24 12:55 Urine Bacteria 1+ /HPF (NEGATIVE) 03/14/24 12:55 Ur Culture Indicated? Yes/culture set up 03/14/24 12:55 Urine Opiates Screen Negative (NEG=<300) 03/14/24 12:55 Urine Methadone Screen Negative (NEG=<300) 03/14/24 12:55 Ur Barbiturates Screen Negative (NEG=<200) 03/14/24 12:55 Ur Phencyclidine Scrn Negative (NEG=<25) 03/14/24 12:55 Ur Amphetamines Screen Negative (NEG=<1000) 03/14/24 12:55 U Benzodiazepines Scrn Negative (NEG=<200) 03/14/24 12:55 Urine Cocaine Screen Negative (NEG=<300) 03/14/24 12:55 U Marijuana (THC) Screen Negative (NEG=<50) 03/14/24 12:55 Opioid Opioid Risk Tool Age ( box if 16-45): No History of Preadolescent Sexual Abuse: No Total: 0 Total Score Risk Category: Low Risk Copyright: Dimitry CHAVIRA predicting aberrant behaviors Discharge Plan Diagnosis Discharge Problem: Acute hypoxic respiratory failure, Pneumonia, AMS (altered mental status), Acute UTI Discharge Plan Patient Disposition: 09 ADMITTED INPATIENT Condition: Stable
[2024-03-14] MEDS: SOLU-Medrol 125 MG VIAL IVP ONE (14:59)
[2024-03-14] MEDS: LEVAQUIN PREMIX IV 750 MG 750 MG/150 ML BAG IV SCH (14:59)
[2024-03-14] MEDS ORDERED: CONSULT PHARMACY - POTASSIUM & MAGNESIUM XX SCH (16:40)
[2024-03-14] MEDS ORDERED: NORCO 10/325 TAB PO PRN (16:40)
[2024-03-14] MEDS: NexIUM PO SCH (17:20)
[2024-03-14] MEDS: NEURONTIN CAP 300 MG PO SCH (17:22)
[2024-03-14] MEDS: PLAVIX PO SCH (17:22)
[2024-03-14] MEDS: XARELTO PO SCH (17:23)
[2024-03-14] MEDS: DUONEB 0.5 MG/3 MG (3 mL) NEB SCH (17:56)
[2024-03-14 17:57] VITALS: BMI 28.8
[2024-03-14] MEDS ORDERED: PHARMACY CONSULT LTC MEDICATIONS XX SCH (18:00)
[2024-03-14] MEDS ORDERED: PULMICORT NEB TX 0.5 MG NEB ONE (19:59)
[2024-03-14] MEDS: PULMICORT NEB TX 0.5 MG NEB SCH (20:04)
[2024-03-14] MEDS: COREG TAB 12.5 MG PO SCH (21:03)
[2024-03-14] MEDS: KLONOPIN TAB 1 MG PO PRN (21:07)
[2024-03-15 05:51] LABS: BASOPHILS % (AUTO) 0.1 % (0.2-1.0); HEMATOCRIT 37.4 % (36.0-47.0); LYMPHOCYTES # (AUTO) 0.5 X10^3/uL (1.3-2.9); LYMPHOCYTES % (AUTO) 14.9 % (21.0-51.0); MEAN CORPUSCULAR HEMOGLOBIN 30.4 pg (27.0-34.0); MEAN CORPUSCULAR HGB CONC 32.2 g/dL (33.0-35.0); MEAN CORPUSCULAR VOLUME 94.4 fL (80.0-100.0); MEAN PLATELET VOLUME 7.4 fL (7.4-11.0); MONOCYTES # (AUTO) 0.1 x10^3/uL (0.3-0.8); MONOCYTES % (AUTO) 4.3 % (0.0-13.0); NEUTROPHILS # (AUTO) 2.7 x10^3/uL (2.2-4.8); NEUTROPHILS % (AUTO) 80.7 % (42.0-75.0); PLATELET COUNT 180 X10^3/uL (150.0-450.0); RED BLOOD COUNT 3.96 X10^6/uL (3.5-5.4); RED CELL DISTRIBUTION WIDTH 14.2 % (11.6-16.5); WHITE BLOOD COUNT 3.4 X10^3/uL (3.6-10.0)
[2024-03-15 06:05] LABS: ALANINE AMINOTRANSFERASE 45 Units/L (12-78); ALBUMIN 2.5 g/dL (3.4-5.0); ALKALINE PHOSPHATASE 125 Units/L (46-116); ASPARTATE AMINO TRANSFERASE 29 Units/L (15-37); BLOOD UREA NITROGEN 21 mg/dL (7-18); CALCIUM 8.6 mg/dL (8.5-10.1); CARBON DIOXIDE 34.3 mmol/L (21-32); CHLORIDE 107 mmol/L (98-107); COR CA(FOR HYPOALB) 9.8 mg/dL (8.5-10.1); COR NA(FOR HYPERGLY) 145 mmol/L (136-145); CREATININE 0.97 mg/dL (0.55-1.02); GLUCOSE 131 mg/dL (65-99); POTASSIUM 5.6 mmol/L (3.5-5.1); SODIUM 144 mmol/L (136-145); TOTAL PROTEIN 6.2 g/dL (6.4-8.2); eGFR NON BLACK RACES 58 (>60)
[2024-03-15] MEDS: LEVAQUIN PREMIX IV 750 MG 750 MG/150 ML BAG IV SCH (08:23)
[2024-03-15] MEDS: LASIX PO SCH (08:23)
[2024-03-15] MEDS ORDERED: POTASSIUM CHLORIDE LIQ PO SCH (09:00)
[2024-03-15] MEDS: SYMBICORT INH 160/4.5 mcg IN SCH (09:58)
--- NOTE | 2024-03-15 10:47 | RAD ---
EXAMINATION:CHEST, PA/LAT ADULTHISTORY:Pt reports that yesterday morning she started noticing a jerking sensation in her hands. 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 ; .COMPARISON STUDY:Chest x-ray 06/05/2023TECHNIQUE:Two views of the chest frontal and lateral projections.FINDINGS:The lungs are expanded. Moderate cardiac silhouette enlargement. [id number] tortuosity of the thoracic aorta. Prominent central pulmonary arteries probable pulmonary arterial hypertension. Partially imaged right shoulder prosthesis. Moderate spondylosis/dorsal kyphosis.IMPRESSION:Cardiac silhouette enlargement. Probable pulmonary arterial hypertension. Recommend follow-up CT of the thorax.THIS IS AN ELECTRONICALLY VERIFIED FINAL [id number]/15/2024 10:43 AM - Electronically signed by Trista Salcido MD
--- NOTE | 2024-03-15 10:57 | DR.H&P ---
H&P History & Physical for Day of: H&P Date: 03/15/24 Chief Complaint Chief Complaint: SOB, AMS, jerking movements History of Present Illness History of Present Illness: Ms Lou is a 83y/o female with a PMH of CAD, CHF, COPD, HTN, HLD, arthritis and GERD who is resident of [facility] presented to the ER with worsening SOB, altered mentation and jerking movements. Patient states she had been sick with URI 2 weeks ago and was treated with abx but continued to get worse. ER work up showed Brain CT which was negative for acute changes. UA was suggestive for infection, CXR concerning for pneumonia. She was started on nebs and Levaquin. She is currently on 2L NC, she does use O2 at the [facility] prn. Labs/imaging reviewed: - WBC 3.4 Hgb 12 K 5.6 BUN/Cr 21/0.97 -AB.43/56/51/37 -Brain CT (-) -CXR final read pending -Urine Cx pending Plan: Wean O2 as tolerated, continue nebs prn. Continue IV levaquin. Follow final Cx. Resume home medications. Replace electrolytes as per protocol. PT/Ot as tolerated. Monitor K levels. Monitor AM labs/imaging. Past Medical History Past Medical History: Anxiety, Arthritis, CHF, COPD, Coronary Artery Disease, Depression, Dyslipidemia, GERD, Hypertension and MS Additional Medical History: Cataracts, Sinusitis, Bronchitis, Pneumonia, Gallbladder disease, Back Pain, Previous Blood Transfusion, Skin Cancer Forehead Past Surgical History Surgical History: Hysterectomy and Ortho Surgery Additional Surgical History: Skin Cancer Removed, Bilateral Hip Surgery, Right Wrist Surgery, Right Shoulder Surgery Family History Family Medical History: Diabetes Mellitus and Hypertension Social History Does patient currently use any type of tobacco product: No Have you used tobacco products in the last 12 months: No Type of Tobacco Use: None Does any household member use tobacco: No Alcohol Use: None Drug Use: None Medications Home Medications: Home Medications Medication Instructions Recorded Confirmed Type sennosides 8.6 mg tablet (Senokot) 8.6 mg PO DAILY 08/14/21 03/14/24 History budesonide-formoterol HFA 160 1 inh inhalation BID 06/01/23 03/14/24 History mcg-4.5 mcg/actuation aerosol inhaler (Symbicort) carvedilol 12.5 mg tablet 12.5 mg PO BID 06/01/23 03/14/24 History celecoxib 200 mg capsule 200 mg PO QDAY 06/01/23 03/14/24 History clopidogrel 75 mg tablet 75 mg PO ONCE 06/01/23 03/14/24 History diclofenac sodium 1 % topical gel 1 ea topical BID 06/01/23 03/14/24 History (Voltaren Arthritis Pain) esomeprazole magnesium 40 mg 40 mg PO QDAY 06/01/23 03/14/24 History capsule,delayed release ferrous fumarate 324 mg (106 mg 324 mg PO DAILY 06/01/23 03/14/24 History iron) tablet (Hemocyte) folic acid 1 mg tablet 2 mg PO QDAY 06/01/23 03/14/24 History gabapentin 300 mg capsule 300 mg PO TID 06/01/23 03/14/24 History hydrocodone 10 mg-acetaminophen 1 tab PO TID PRN 06/01/23 03/14/24 History 325 mg tablet ondansetron HCl 8 mg tablet 8 mg PO Q8H 06/01/23 03/14/24 History potassium chloride 20 mEq/15 mL 10 meq PO DAILY 06/01/23 03/14/24 History oral liquid rivaroxaban 10 mg tablet (Xarelto) 10 mg PO QDAY 06/01/23 03/14/24 History rosuvastatin 40 mg tablet 40 mg PO HS 06/01/23 03/14/24 History aluminum-magnesium hydroxide 225 10 ml PO Q2H PRN 03/14/24 03/14/24 History mg-200 mg/5 mL oral suspension biotin 1 mg tablet 1 mg PO DAILY 03/14/24 03/14/24 History calcium carb-ergocalciferol (vit 1 tab PO BID 03/14/24 03/14/24 History D2) 600 mg calcium-200 unit tablet carboxymethylcellulose sodium 0.5 1 drp ophthalmic (eye) BID 03/14/24 03/14/24 History % eye drops (Refresh Tears) cefdinir 300 mg capsule 300 mg PO BID 03/14/24 03/14/24 History cholecalciferol (vitamin D3) 10 10 mcg PO DAILY 03/14/24 03/14/24 History mcg (400 unit) capsule clonazepam 1 mg tablet 1 mg PO QPM PRN 03/14/24 03/14/24 History cyanocobalamin (vitamin B-12) 1,000 mcg IM DAILY 03/14/24 03/14/24 History 1,000 mcg/mL injection solution denosumab 60 mg/mL subcutaneous 60 mg subcut Q6M 03/14/24 03/14/24 History syringe (Prolia) dextromethorphan-guaifenesin 10 20 ml PO BID 03/14/24 03/14/24 History mg-100 mg/5 mL oral liquid (Tussin DM Cough and Chest) docusate sodium 100 mg capsule 100 mg PO BID 03/14/24 03/14/24 History famotidine 40 mg tablet 40 mg PO DAILY 03/14/24 03/14/24 History fexofenadine 180 mg tablet 180 mg PO DAILY 03/14/24 03/14/24 History fluticasone propionate 50 100 mcg intranasal DAILY 03/14/24 03/14/24 History mcg/actuation nasal spray,suspension (Flonase Allergy Relief) furosemide 20 mg tablet (Lasix) 20 mg PO DAILY 03/14/24 03/14/24 History guaifenesin 600 mg tablet, 600 mg PO BID 03/14/24 03/14/24 History extended release 12 hr (Mucinex) magnesium 2 tab PO DAILY 03/14/24 03/14/24 History selenium 200 mcg tablet 200 mcg PO DAILY 03/14/24 03/14/24 History Allergies Allergies Allergy/AdvReac Type Severity Reaction Status Date / Time codeine Allergy Verified 02/06/17 22:08 hydromorphone [From Dilaudid] Allergy Verified 02/06/17 22:08 influenza virus vaccine qs Allergy Verified 03/24/17 18:04 [id number] (36 mos, up) [From Single Use EZ Flu] meperidine [From Demerol] Allergy Verified 02/06/17 22:08 Labs 03/15/24 05:15 03/15/24 05:15 Labs: Laboratory WBC 3.4 X10^3/uL (3.6-10.0) L 03/15/24 05:15 RBC 3.96 X10^6/uL (3.5-5.4) 03/15/24 05:15 Hgb 12.0 g/dL (12.0-16.0) 03/15/24 05:15 Hct 37.4 % (36.0-47.0) 03/15/24 05:15 MCV 94.4 fL (80.0-100.0) 03/15/24 05:15 MCH 30.4 pg (27.0-34.0) 03/15/24 05:15 MCHC 32.2 g/dL (33.0-35.0) L 03/15/24 05:15 RDW 14.2 % (11.6-16.5) 03/15/24 05:15 Plt Count 180 X10^3/uL (150.0-450.0) 03/15/24 05:15 MPV 7.4 fL (7.4-11.0) 03/15/24 05:15 Neut % (Auto) 80.7 % (42.0-75.0) H 03/15/24 05:15 Lymph % (Auto) 14.9 % (21.0-51.0) L 03/15/24 05:15 [place] % (Auto) 4.3 % (0.0-13.0) 03/15/24 05:15 Eos % (Auto) 0.0 % (0.9-2.9) L 03/15/24 05:15 Baso % (Auto) 0.1 % (0.2-1.0) L 03/15/24 05:15 Neut # (Auto) 2.7 x10^3/uL (2.2-4.8) 03/15/24 05:15 Lymph # (Auto) 0.5 X10^3/uL (1.3-2.9) L 03/15/24 05:15 [place] # (Auto) 0.1 x10^3/uL (0.3-0.8) L 03/15/24 05:15 Eos # (Auto) 0.0 x10^3/uL (0.0-0.2) 03/15/24 05:15 Baso # (Auto) 0.0 X10^3/uL (0.0-0.1) 03/15/24 05:15 Absolute Nucleated RBC 0.1 /100WBC 03/15/24 05:15 Sample Site Rra 03/14/24 12:37 ABG pH 7.430 (7.35-7.45) 03/14/24 12:37 ABG pCO2 56.0 mmHg (35.0-45.0) H* 03/14/24 12:37 ABG pO2 51.0 mmHg (80.0-100.0) L 03/14/24 12:37 ABG HCO3 37.2 mmol/L (22-26) H* 03/14/24 12:37 ABG O2 Saturation 87.0 % (90-100) L 03/14/24 12:37 ABG Base Excess 10.9 mmol/L (-2.0-2.0) H 03/14/24 12:37 [place] Test Pos 03/14/24 12:37 A-a Gradient 29.0 mmHg 03/14/24 12:37 FiO2 21.0 03/14/24 12:37 Blood Gas Comments Pt derick well eb 03/14/24 12:37 Sodium 144 mmol/L (136-145) 03/15/24 05:15 Corrected Sodium 145 mmol/L (136-145) 03/15/24 05:15 Potassium 5.6 mmol/L (3.5-5.1) H 03/15/24 05:15 Chloride 107 mmol/L (98-107) 03/15/24 05:15 Carbon Dioxide 34.3 mmol/L (21-32) H 03/15/24 05:15 BUN 21 mg/dL (7-18) H 03/15/24 05:15 Creatinine 0.97 mg/dL (0.55-1.02) 03/15/24 05:15 Est GFR (MDRD) Af Amer > 60 (>60) 03/15/24 05:15 Est GFR (MDRD) Non-Af 58 (>60) L 03/15/24 05:15 Glucose 131 mg/dL (65-99) H 03/15/24 05:15 Lactic Acid 0.6 mmol/L (0.4-2.0) 03/14/24 13:10 Calcium 8.6 mg/dL (8.5-10.1) 03/15/24 05:15 Corrected Calcium 9.8 mg/dL (8.5-10.1) 03/15/24 05:15 Magnesium 2.0 mg/dL (2.0-2.9) 03/15/24 05:15 Total Bilirubin 0.20 mg/dL (0.2-1.0) 03/15/24 05:15 AST 29 Units/L (15-37) 03/15/24 05:15 ALT 45 Units/L (12-78) 03/15/24 05:15 Alkaline Phosphatase 125 Units/L (46-116) H 03/15/24 05:15 Troponin I High Sens 23.3 ng/L (4.0-60.0) 03/14/24 13:10 Total Protein 6.2 g/dL (6.4-8.2) L 03/15/24 05:15 Albumin 2.5 g/dL (3.4-5.0) L 03/15/24 05:15 Globulin 3.7 g/dL (2.5-4.5) 03/15/24 05:15 Albumin/Globulin Ratio 0.7 Ratio (1.1-2.1) L 03/15/24 05:15 Specimen Type Clean catch urine 03/14/24 12:55 Urine Color Dark yellow (YELLOW) 03/14/24 12:55 Urine Appearance Clear (CLEAR) 03/14/24 12:55 Urine pH 6.0 (5.0 - 8.0) 03/14/24 12:55 Ur Specific [place] 1.020 (1.000-1.030) 03/14/24 12:55 Urine Protein 2+ (NEGATIVE) 03/14/24 12:55 Urine Glucose (UA) Negative (NEGATIVE) 03/14/24 12:55 Urine Ketones Negative (NEGATIVE) 03/14/24 12:55 Urine Blood Negative (NEGATIVE) 03/14/24 12:55 Urine Nitrite Negative (NEGATIVE) 03/14/24 12:55 Urine Bilirubin Negative (NEGATIVE) 03/14/24 12:55 Urine Urobilinogen Normal (NORMAL) 03/14/24 12:55 Ur Leukocyte Esterase 2+ (NEGATIVE) 03/14/24 12:55 Urine RBC 0-2 /HPF (0-3) 03/14/24 12:55 Urine WBC 10-20 /HPF (0-5) A 03/14/24 12:55 Ur Squamous Epith Cells Moderate /HPF (NEGATIVE) 03/14/24 12:55 Urine Bacteria 1+ /HPF (NEGATIVE) 03/14/24 12:55 Ur Culture Indicated? Yes/culture set up 03/14/24 12:55 Urine Opiates Screen Negative (NEG=<300) 03/14/24 12:55 Urine Methadone Screen Negative (NEG=<300) 03/14/24 12:55 Ur Barbiturates Screen Negative (NEG=<200) 03/14/24 12:55 Ur Phencyclidine Scrn Negative (NEG=<25) 03/14/24 12:55 Ur Amphetamines Screen Negative (NEG=<1000) 03/14/24 12:55 U Benzodiazepines Scrn Negative (NEG=<200) 03/14/24 12:55 Urine Cocaine Screen Negative (NEG=<300) 03/14/24 12:55 U Marijuana (THC) Screen Negative (NEG=<50) 03/14/24 12:55 Review of Systems Constitutional: Weakness Eyes: No Symptoms Reported ENT: No Symptoms Reported Respiratory: Cough and Shortness of Breath Cardiovascular: No Symptoms Reported Gastrointestinal: No Symptoms Reported Genitourinary: No Symptoms Reported Musculoskeletal: No Symptoms Reported Skin: No Symptoms Reported Neurological: Confusion Physical Exam Vital Signs: Vital Signs Temperature 97.4 F Temperature 97.4 F Pulse Rate [Left] 73 Pulse Rate [Left] 70 Respiratory Rate 19 Respiratory Rate 20 Blood Pressure [Left Arm] 128/58 Blood Pressure [Left Arm] 117/58 O2 Sat by Pulse Oximetry 90 O2 Sat by Pulse Oximetry 93 O2 Sat by Pulse Oximetry 94 Oriented: Normal Eyes: Normal Throat: Normal Respiratory: Diminished Throughout Cardiovascular: Normal and Edema Auscultation: Bowel Sounds: Normal Palpation: Normal Tenderness: Normal Skin: Decreased [place] Musculoskeletal: Normal Psychiatric: Normal Mood Description: Calm Affect: Normal Speech Pattern: Clear and Appropriate Assessment/Plan (1) Acute hypoxic respiratory failure: Status: Acute (2) AMS (altered mental status): Qualifiers: Altered mental status type: unspecified Qualified Code(s): R41.82 - Altered mental status, unspecified Status: Acute (3) Acute UTI: Status: Acute (4) Hyperkalemia: Status: Inactive (5) Pneumonia: Qualifiers: Laterality: bilateral Lung location: lower lobe of lung Pneumonia type: due to methicillin-resistant Staphylococcus aureus (MRSA) Qualified Code(s): J15.212 - Pneumonia due to Methicillin resistant Staphylococcus aureus Status: Acute (6) CHF (congestive heart failure): Qualifiers: Heart failure chronicity: acute on chronic Heart failure type: combined systolic and diastolic Qualified Code(s): I50.43 - Acute on chronic combined systolic (congestive) and diastolic (congestive) heart failure Status: Chronic (7) Coronary artery disease: Qualifiers: Associated angina: with stable angina Coronary Disease-Associated Artery/Lesion type: [place] artery [place] vs. transplanted heart: [place] heart Qualified Code(s): I25.118 - Atherosclerotic heart disease of [place] coronary artery with other forms of angina pectoris Status: Chronic (8) Dyslipidemia: Status: Chronic (9) COPD (chronic obstructive pulmonary disease): Qualifiers: COPD type: chronic bronchitis Chronic bronchitis type: mucopurulent Qualified Code(s): J41.1 - Mucopurulent chronic bronchitis Status: Chronic Review H&P Reviewed: Yes Patient was examined?: Yes
--- NOTE | 2024-03-15 14:28 | CT ---
EXAM: CTA chest with contrast for pulmonary embolus HISTORY: Shortness of breath TECHNIQUE: Axial postcontrast images with coronal and sagittal reformats. Dose reduction procedures were used w ith mA/kv adjusted for body size. COMPARISON: 08/16/2023 FINDINGS: There is no evidence for acute pulmonary thromboembolic disease. Examination of the mediastinum demonstrated no mediastinal mass, abnormal mediastinal or abnormal hilar adenopathy or significant aortic abnormality. The main and right and left main pulmonary arteries are enlarged suggestive of pulmonary arterial hypertension . The heart is enlarged. Trace bilateral pleural effusions are present. No chest wall or axillary abnormalities identified. Those portions of the upper abdominal organs visualized appeared within no rmal limits to the limitations of early arterial injection timing. Thoracic spinal osteopenia is brian ntified. Old compression fractures of T8 and L1 are present. The L1 compression fracture has been t reated with kyphoplasty. Examination of the lung harry demonstrated diffuse interstitial lung carter es present some of which are chronic and some possibly related to edema due to congestive heart failu re. Scattered areas of ground-glass infiltrate are present which could be infectious or due to edema . No pulmonary masses or significant pulmonary nodules are identified. IMPRESSION: No evidence for acute pulmonary thromboembolic disease No acute alveolar infiltrates or areas of consolidation identified Cardiomegaly likely with mild congestive heart failure in the form of interstitial edema Scattered ground-glass infiltrates which could be infectious or could be related to cardiogenic or no n cardiogenic edema Dilatation of the main pulmonary artery and right and left main pulmonary arteries which can be seen with pulmonary arterial hypertension THIS IS AN ELECTRONICALLY VERIFIED FINAL REPORT 03/15/2024 2:24 PM - Electronically signed by Ruben Verduzco MD
[2024-03-16 06:27] LABS: BASOPHILS % (AUTO) 0.5 % (0.2-1.0); EOSINOPHILS # (AUTO) 0.3 x10^3/uL (0.0-0.2); EOSINOPHILS % (AUTO) 4.8 % (0.9-2.9); HEMATOCRIT 34.7 % (36.0-47.0); HEMOGLOBIN 11.3 g/dL (12.0-16.0); LYMPHOCYTES # (AUTO) 1.3 X10^3/uL (1.3-2.9); LYMPHOCYTES % (AUTO) 22.2 % (21.0-51.0); MEAN CORPUSCULAR HGB CONC 32.7 g/dL (33.0-35.0); MEAN PLATELET VOLUME 7.2 fL (7.4-11.0); MONOCYTES # (AUTO) 0.6 x10^3/uL (0.3-0.8); MONOCYTES % (AUTO) 9.5 % (0.0-13.0); NEUTROPHILS # (AUTO) 3.8 x10^3/uL (2.2-4.8); PLATELET COUNT 180 X10^3/uL (150.0-450.0); RED BLOOD COUNT 3.65 X10^6/uL (3.5-5.4); RED CELL DISTRIBUTION WIDTH 14.2 % (11.6-16.5); WHITE BLOOD COUNT 5.9 X10^3/uL (3.6-10.0)
[2024-03-16 06:44] LABS: ALANINE AMINOTRANSFERASE 34 Units/L (12-78); ALBUMIN 2.4 g/dL (3.4-5.0); ALKALINE PHOSPHATASE 107 Units/L (46-116); ASPARTATE AMINO TRANSFERASE 20 Units/L (15-37); BLOOD UREA NITROGEN 21 mg/dL (7-18); CALCIUM 8.2 mg/dL (8.5-10.1); CARBON DIOXIDE 37.4 mmol/L (21-32); CHLORIDE 108 mmol/L (98-107); COR CA(FOR HYPOALB) 9.5 mg/dL (8.5-10.1); CREATININE 0.98 mg/dL (0.55-1.02); GLUCOSE 91 mg/dL (65-99); POTASSIUM 4.6 mmol/L (3.5-5.1); SODIUM 145 mmol/L (136-145); TOTAL PROTEIN 5.8 g/dL (6.4-8.2); eGFR NON BLACK RACES 57 (>60)
--- NOTE | 2024-03-16 10:34 | PCM.PROG ---
Progress Note Progress Note for Day of Date of Exam: 03/16/24 Subjective Subjective: Patient seen at bedside, no acute events overnight. She is admitted for pneumonia and UTI. She is currently on IV antibiotics. She remains on 2L NC. She has been ambulating with PT. Urine Cx shows no growth. CT-chest did show scattered ground glass opacities, mild CHF and PAH. Labs/imaging reviewed: -WBC 5.9 Hgb 11.3 K 4.6 BUN/Cr 21/0.98 -Urine Cx no growth -Leg wound Cx pending -AIT panel pending -Chest CT reviewed Plan: Wean O2 as tolerated, continue IV Levaquin, nebs and IS. Follow pending cultures. Continue home meds. Resume Senna. Replace electrolytes as per protoco l. PT/OT as tolerated. Monitor AM labs/imaging. Past Medical Family Social History Allergies: Allergies codeine Allergy (Verified 02/06/17 22:08) hydromorphone [From Dilaudid] Allergy (Verified 02/06/17 22:08) influenza virus vaccine qs 0783-1812 (36 mos, up) [From Single Use EZ Flu] Allergy (Verified 03/24/17 18:04) meperidine [From Demerol] Allergy (Verified 02/06/17 22:08) Vital Signs and I&O's Vital Signs: Vital Signs Temperature 98.2 F Temperature 97.7 F Pulse Rate [Left] 67 Pulse Rate [Left] 71 Pulse Rate 81 Respiratory Rate 18 Respiratory Rate 18 Blood Pressure [Left Arm] 115/53 Blood Pressure [Left Arm] 125/58 O2 Sat by Pulse Oximetry 96 O2 Sat by Pulse Oximetry 97 O2 Sat by Pulse Oximetry 96 Intake and Output: Intake & Output 03/13/24 03/14/24 03/15/24 03/16/24 23:59 23:59 23:59 23:59 Intake Total 880 / 880 100 / 100 Balance 880 / 880 100 / 100 Physical Exam Oriented: Normal Eyes: Normal Throat: Normal Respiratory: Generalized and Diminished Cardiovascular: Normal and Edema Auscultation: Bowel Sounds: Normal Palpation: Normal Tenderness: Normal Skin: Decreased Turgur and Other (dressing noted RLE ) Musculoskeletal: Normal Psychiatric: Normal Mood Description: Calm Affect: Normal Speech Pattern: Clear and Appropriate Laboratory and Diagnostics 03/16/24 06:00 03/16/24 06:00 Labs: 10/28/24 13:35 Leg - Left Wound Gram Stain - Final 03/15/24 13:35 Leg - Left Wound Culture - Preliminary 03/14/24 12:55 Urine,Clean Catch Urine Culture - Final Laboratory WBC 5.9 X10^3/uL (3.6-10.0) 03/16/24 06:00 RBC 3.65 X10^6/uL (3.5-5.4) 03/16/24 06:00 Hgb 11.3 g/dL (12.0-16.0) L 03/16/24 06:00 Hct 34.7 % (36.0-47.0) L 03/16/24 06:00 MCV 95.0 fL (80.0-100.0) 03/16/24 06:00 MCH 31.0 pg (27.0-34.0) 03/16/24 06:00 MCHC 32.7 g/dL (33.0-35.0) L 03/16/24 06:00 RDW 14.2 % (11.6-16.5) 03/16/24 06:00 Plt Count 180 X10^3/uL (150.0-450.0) 03/16/24 06:00 MPV 7.2 fL (7.4-11.0) L 03/16/24 06:00 Neut % (Auto) 63.0 % (42.0-75.0) 03/16/24 06:00 Lymph % (Auto) 22.2 % (21.0-51.0) 03/16/24 06:00 [place] % (Auto) 9.5 % (0.0-13.0) 03/16/24 06:00 Eos % (Auto) 4.8 % (0.9-2.9) H 03/16/24 06:00 Baso % (Auto) 0.5 % (0.2-1.0) 03/16/24 06:00 Neut # (Auto) 3.8 x10^3/uL (2.2-4.8) 03/16/24 06:00 Lymph # (Auto) 1.3 X10^3/uL (1.3-2.9) 03/16/24 06:00 [place] # (Auto) 0.6 x10^3/uL (0.3-0.8) 03/16/24 06:00 Eos # (Auto) 0.3 x10^3/uL (0.0-0.2) H 03/16/24 06:00 Baso # (Auto) 0.0 X10^3/uL (0.0-0.1) 03/16/24 06:00 Absolute Nucleated RBC 0.0 /100WBC 03/16/24 06:00 Sample Site Rra 03/14/24 12:37 ABG pH 7.430 (7.35-7.45) 03/14/24 12:37 ABG pCO2 56.0 mmHg (35.0-45.0) H* 03/14/24 12:37 ABG pO2 51.0 mmHg (80.0-100.0) L 03/14/24 12:37 ABG HCO3 37.2 mmol/L (22-26) H* 03/14/24 12:37 ABG O2 Saturation 87.0 % (90-100) L 03/14/24 12:37 ABG Base Excess 10.9 mmol/L (-2.0-2.0) H 03/14/24 12:37 [place] Test Pos 03/14/24 12:37 A-a Gradient 29.0 mmHg 03/14/24 12:37 FiO2 21.0 03/14/24 12:37 Blood Gas Comments Pt derick well eb 03/14/24 12:37 Sodium 145 mmol/L (136-145) 03/16/24 06:00 Corrected Sodium TNP 03/16/24 06:00 Potassium 4.6 mmol/L (3.5-5.1) 03/16/24 06:00 Chloride 108 mmol/L (98-107) H 03/16/24 06:00 Carbon Dioxide 37.4 mmol/L (21-32) H 03/16/24 06:00 BUN 21 mg/dL (7-18) H 03/16/24 06:00 Creatinine 0.98 mg/dL (0.55-1.02) 03/16/24 06:00 Est GFR (MDRD) Af Amer > 60 (>60) 03/16/24 06:00 Est GFR (MDRD) Non-Af 57 (>60) L 03/16/24 06:00 Glucose 91 mg/dL (65-99) 03/16/24 06:00 Lactic Acid 0.6 mmol/L (0.4-2.0) 03/14/24 13:10 Calcium 8.2 mg/dL (8.5-10.1) L 03/16/24 06:00 Corrected Calcium 9.5 mg/dL (8.5-10.1) 03/16/24 06:00 Magnesium 2.0 mg/dL (2.0-2.9) 03/15/24 05:15 Total Bilirubin 0.20 mg/dL (0.2-1.0) 03/16/24 06:00 AST 20 Units/L (15-37) 03/16/24 06:00 ALT 34 Units/L (12-78) 03/16/24 06:00 Alkaline Phosphatase 107 Units/L (46-116) 03/16/24 06:00 Troponin I High Sens 23.3 ng/L (4.0-60.0) 03/14/24 13:10 Total Protein 5.8 g/dL (6.4-8.2) L 03/16/24 06:00 Albumin 2.4 g/dL (3.4-5.0) L 03/16/24 06:00 Globulin 3.4 g/dL (2.5-4.5) 03/16/24 06:00 Albumin/Globulin Ratio 0.7 Ratio (1.1-2.1) L 03/16/24 06:00 Specimen Type Clean catch urine 03/14/24 12:55 Urine Color Dark yellow (YELLOW) 03/14/24 12:55 Urine Appearance Clear (CLEAR) 03/14/24 12:55 Urine pH 6.0 (5.0 - 8.0) 03/14/24 12:55 Ur Specific [place] 1.020 (1.000-1.030) 03/14/24 12:55 Urine Protein 2+ (NEGATIVE) 03/14/24 12:55 Urine Glucose (UA) Negative (NEGATIVE) 03/14/24 12:55 Urine Ketones Negative (NEGATIVE) 03/14/24 12:55 Urine Blood Negative (NEGATIVE) 03/14/24 12:55 Urine Nitrite Negative (NEGATIVE) 03/14/24 12:55 Urine Bilirubin Negative (NEGATIVE) 03/14/24 12:55 Urine Urobilinogen Normal (NORMAL) 03/14/24 12:55 Ur Leukocyte Esterase 2+ (NEGATIVE) 03/14/24 12:55 Urine RBC 0-2 /HPF (0-3) 03/14/24 12:55 Urine WBC 10-20 /HPF (0-5) A 03/14/24 12:55 Ur Squamous Epith Cells Moderate /HPF (NEGATIVE) 03/14/24 12:55 Urine Bacteria 1+ /HPF (NEGATIVE) 03/14/24 12:55 Ur Culture Indicated? Yes/culture set up 03/14/24 12:55 Urine Opiates Screen Negative (NEG=<300) 03/14/24 12:55 Urine Methadone Screen Negative (NEG=<300) 03/14/24 12:55 Ur Barbiturates Screen Negative (NEG=<200) 03/14/24 12:55 Ur Phencyclidine Scrn Negative (NEG=<25) 03/14/24 12:55 Ur Amphetamines Screen Negative (NEG=<1000) 03/14/24 12:55 U Benzodiazepines Scrn Negative (NEG=<200) 03/14/24 12:55 Urine Cocaine Screen Negative (NEG=<300) 03/14/24 12:55 U Marijuana (THC) Screen Negative (NEG=<50) 03/14/24 12:55 Resp Viral Panel (PCR) See scanned report 03/14/24 16:27 Plan (1) Acute hypoxic respiratory failure: Status: Acute (2) Pneumonia: Status: Acute Qualifiers: Laterality: bilateral Lung location: lower lobe of lung Pneumonia type: due to methicillin-resistant Staphylococcus aureus (MRSA) Qualified Code(s): J15.212 - Pneumonia due to Methicillin resistant Staphylococcus aureus (3) Acute UTI: Status: Acute (4) Hyperkalemia: Status: Inactive (5) CHF (congestive heart failure): Status: Chronic Qualifiers: Heart failure chronicity: acute on chronic Heart failure type: combined systolic and diastolic Qualified Code(s): I50.43 - Acute on chronic combined systolic (congestive) and diastolic (congestive) heart failure (6) Coronary artery disease: Status: Chronic Qualifiers: Associated angina: with stable angina Coronary Disease-Associated Artery/Lesion type: [place] artery [place] vs. transplanted heart: [place] heart Qualified Code(s): I25.118 - Atherosclerotic heart disease of [place] coronary artery with other forms of angina pectoris (7) Dyslipidemia: Status: Chronic (8) COPD (chronic obstructive pulmonary disease): Status: Chronic Qualifiers: COPD type: chronic bronchitis Chronic bronchitis type: mucopurulent Qualified Code(s): J41.1 - Mucopurulent chronic bronchitis
[2024-03-16] MEDS: SENOKOT PO SCH (11:09)
[2024-03-16] MEDS: TYLENOL 325 MG TAB PO PRN (11:37)
[2024-03-16] MEDS ORDERED: CHLORASEPTIC SPRAY MT PRN (11:44)
[2024-03-16 17:12] LABS: BILIRUBIN,URINE NEGATIVE (NEGATIVE); BLOOD/HEMOGLOBIN,URINE NEGATIVE (NEGATIVE); GLUCOSE, URINE NEGATIVE (NEGATIVE); KETONES,URINE NEGATIVE (NEGATIVE); LEUKOCYTE ESTERASE ,URINE NEGATIVE (NEGATIVE); NITRITES,URINE NEGATIVE (NEGATIVE); PROTEIN,URINE NEGATIVE (NEGATIVE); UROBILINOGEN,URINE NORMAL (NORMAL)
[2024-03-16 17:16] LABS: APPEARANCE,URINE CLEAR (CLEAR); COLOR,URINE YELLOW (YELLOW)
[2024-03-17 06:21] LABS: BASOPHILS % (AUTO) 0.4 % (0.2-1.0); EOSINOPHILS # (AUTO) 0.3 x10^3/uL (0.0-0.2); EOSINOPHILS % (AUTO) 5.3 % (0.9-2.9); HEMATOCRIT 38.3 % (36.0-47.0); HEMOGLOBIN 12.4 g/dL (12.0-16.0); LYMPHOCYTES # (AUTO) 0.9 X10^3/uL (1.3-2.9); LYMPHOCYTES % (AUTO) 16.5 % (21.0-51.0); MEAN CORPUSCULAR HGB CONC 32.3 g/dL (33.0-35.0); MEAN CORPUSCULAR VOLUME 96.1 fL (80.0-100.0); MEAN PLATELET VOLUME 7.4 fL (7.4-11.0); MONOCYTES # (AUTO) 0.6 x10^3/uL (0.3-0.8); MONOCYTES % (AUTO) 10.4 % (0.0-13.0); NEUTROPHILS # (AUTO) 3.9 x10^3/uL (2.2-4.8); NEUTROPHILS % (AUTO) 67.4 % (42.0-75.0); PLATELET COUNT 194 X10^3/uL (150.0-450.0); RED BLOOD COUNT 3.98 X10^6/uL (3.5-5.4); RED CELL DISTRIBUTION WIDTH 14.8 % (11.6-16.5); WHITE BLOOD COUNT 5.7 X10^3/uL (3.6-10.0)
[2024-03-17 06:48] LABS: ALANINE AMINOTRANSFERASE 30 Units/L (12-78); ALBUMIN 2.6 g/dL (3.4-5.0); ALKALINE PHOSPHATASE 115 Units/L (46-116); ASPARTATE AMINO TRANSFERASE 19 Units/L (15-37); BLOOD UREA NITROGEN 17 mg/dL (7-18); CALCIUM 8.3 mg/dL (8.5-10.1); CARBON DIOXIDE 36.5 mmol/L (21-32); CHLORIDE 106 mmol/L (98-107); COR CA(FOR HYPOALB) 9.4 mg/dL (8.5-10.1); CREATININE 0.91 mg/dL (0.55-1.02); GLUCOSE 93 mg/dL (65-99); POTASSIUM 4.7 mmol/L (3.5-5.1); SODIUM 147 mmol/L (136-145); TOTAL PROTEIN 6.3 g/dL (6.4-8.2); eGFR NON BLACK RACES > 60 (>60)
[2024-03-17 12:32] VITALS: BP 132/68; PULSE 73; RESP 18; TEMP 98.1; O2SAT 95
[2024-03-17] MEDS ORDERED: PLAVIX PO SCH (16:00)
--- NOTE | 2024-03-18 16:05 | W.DIS.FURT ---
Summary of Discharge Discharge Summary of Date Date of Exam: 03/17/24 Admission Date Date of Admission: 03/14/24 Admission Diagnosis Patient Problems (Updated 03/18/24 @ 16:04 by Melisa Najera MD) Acute hypoxic respiratory failure (Acute) J96.01 AMS (altered mental status) (Acute) R41.82 Hospital Course: Ms Lou is a 83y/o female with a PMH of CAD, CHF, COPD, HTN, HLD, arthritis and GERD who is resident of [facility] presented to the ER with worsening SOB, altered mentation and jerking movements. Patient states she had been sick with URI 2 weeks ago and was treated with abx but continued to get worse. ER work up showed Brain CT which was negative for acute changes. UA was suggestive for infection, CXR concerning for pneumonia. She was started on nebs and Levaquin. She is currently on 2L NC, she does use O2 at the residential prn. Her labs were monitored daily and electrolytes replaced as needed. CT chest was also done which showed bilateral scattered opacities and pleural effusion. Urine culture did not grow out anything. Patient remained on Levaquin and bronchodilators. She was doing well. She was able to ambulate to the bathroom, tolerating p.o. intake. She was stable to be discharged back to the residential with oral antibiotics and nebs. Vital Signs: Vital Signs (72 hours) 03/14/24 12:12 03/14/24 12:07 03/14/24 12:15 Temperature 97.8 F Pulse Rate 71 70 64 Pulse Rate [Left] Respiratory Rate 20 26 H 24 Blood Pressure 146/65 Blood Pressure [Left Arm] O2 Sat by Pulse Oximetry 88 L 88 L 70 L Oxygen Delivery Method Room Air Room Air Room Air Oxygen Flow Rate FIO2% 03/14/24 12:30 03/14/24 12:45 03/14/24 13:00 Temperature Pulse Rate 67 68 Pulse Rate [Left] Respiratory Rate 29 H 27 H Blood Pressure 119/57 Blood Pressure [Left Arm] O2 Sat by Pulse Oximetry 93 L Oxygen Delivery Method Oxygen Flow Rate FIO2% 03/14/24 13:03 03/14/24 13:03 03/14/24 13:15 Temperature Pulse Rate 67 62 Pulse Rate [Left] Respiratory Rate 29 H 22 Blood Pressure 136/72 Blood Pressure [Left Arm] O2 Sat by Pulse Oximetry 93 L 100 Oxygen Delivery Method Oxygen Flow Rate FIO2% 03/14/24 13:42 03/14/24 13:45 03/14/24 13:54 Temperature Pulse Rate 65 65 63 Pulse Rate [Left] Respiratory Rate 24 Blood Pressure Blood Pressure [Left Arm] O2 Sat by Pulse Oximetry 93 L 97 98 Oxygen Delivery Method Oxygen Flow Rate FIO2% 03/14/24 13:54 03/14/24 14:00 03/14/24 14:00 Temperature Pulse Rate 62 Pulse Rate [Left] Respiratory Rate 26 H Blood Pressure 128/57 141/63 Blood Pressure [Left Arm] O2 Sat by Pulse Oximetry 99 Oxygen Delivery Method Oxygen Flow Rate FIO2% 03/14/24 14:15 03/14/24 14:30 03/14/24 14:31 Temperature Pulse Rate 59 L 60 Pulse Rate [Left] Respiratory Rate 23 17 Blood Pressure 137/60 Blood Pressure [Left Arm] O2 Sat by Pulse Oximetry 99 99 Oxygen Delivery Method Nasal Cannula Oxygen Flow Rate 2 FIO2% 03/14/24 14:31 03/14/24 14:45 03/14/24 15:00 Temperature Pulse Rate 61 58 L 60 Pulse Rate [Left] Respiratory Rate 31 H 17 36 H Blood Pressure Blood Pressure [Left Arm] O2 Sat by Pulse Oximetry 98 97 96 Oxygen Delivery Method Nasal Cannula Oxygen Flow Rate 2 FIO2% 03/14/24 15:01 03/14/24 15:01 03/14/24 15:15 Temperature Pulse Rate 60 56 L Pulse Rate [Left] Respiratory Rate 37 H 20 Blood Pressure 128/62 Blood Pressure [Left Arm] O2 Sat by Pulse Oximetry 96 97 Oxygen Delivery Method Oxygen Flow Rate FIO2% 03/14/24 15:30 03/14/24 15:30 03/14/24 15:30 Temperature Pulse Rate 61 Pulse Rate [Left] Respiratory Rate 46 H Blood Pressure 126/66 126/66 Blood Pressure [Left Arm] O2 Sat by Pulse Oximetry 98 Oxygen Delivery Method Oxygen Flow Rate FIO2% 03/14/24 15:30 03/14/24 15:45 03/14/24 16:15 Temperature Pulse Rate 61 60 Pulse Rate [Left] 66 Respiratory Rate 46 H 32 H 20 Blood Pressure Blood Pressure [Left Arm] 162/70 O2 Sat by Pulse Oximetry 98 98 96 Oxygen Delivery Method Room Air Oxygen Flow Rate 2 FIO2% 03/14/24 16:15 03/14/24 17:56 03/14/24 19:32 Temperature 98.0 F Pulse Rate 66 Pulse Rate [Left] 75 Respiratory Rate 22 Blood Pressure Blood Pressure [Left Arm] 154/65 O2 Sat by Pulse Oximetry 96 98 Oxygen Delivery Method Nasal Cannula Room Air Oxygen Flow Rate 2 2 FIO2% 03/14/24 19:00 03/14/24 20:05 03/14/24 22:58 Temperature 97.6 F Pulse Rate 73 Pulse Rate [Left] 88 Respiratory Rate 22 Blood Pressure Blood Pressure [Left Arm] 110/45 O2 Sat by Pulse Oximetry 98 97 Oxygen Delivery Method Nasal Cannula Room Air Oxygen Flow Rate 2 2 FIO2% 03/15/24 04:00 03/15/24 08:00 03/15/24 07:00 Temperature 97.4 F L 97.4 F L Pulse Rate Pulse Rate [Left] 70 73 Respiratory Rate 20 19 Blood Pressure Blood Pressure [Left Arm] 117/58 128/58 O2 Sat by Pulse Oximetry 94 L 93 L Oxygen Delivery Method Room Air Room Air Nasal Cannula Oxygen Flow Rate 2 2 2 FIO2% 03/15/24 08:16 03/15/24 08:16 03/15/24 11:50 Temperature 97.3 F L Pulse Rate Pulse Rate [Left] 73 Respiratory Rate 18 Blood Pressure Blood Pressure [Left Arm] 114/56 O2 Sat by Pulse Oximetry 90 L 95 Oxygen Delivery Method Nasal Cannula Room Air Oxygen Flow Rate 2 2 FIO2% 28 03/15/24 16:00 03/15/24 19:00 03/15/24 20:00 Temperature 97.7 F 97.8 F Pulse Rate Pulse Rate [Left] 66 69 Respiratory Rate 16 19 Blood Pressure Blood Pressure [Left Arm] 100/52 114/56 O2 Sat by Pulse Oximetry 99 99 Oxygen Delivery Method Room Air Nasal Cannula Nasal Cannula Oxygen Flow Rate 2 2 2 FIO2% 03/16/24 00:00 03/15/24 21:00 03/15/24 21:21 Temperature 97.9 F Pulse Rate 71 Pulse Rate [Left] 70 Respiratory Rate 20 Blood Pressure Blood Pressure [Left Arm] 110/51 O2 Sat by Pulse Oximetry 96 96 Oxygen Delivery Method Nasal Cannula Nasal Cannula Oxygen Flow Rate 2 2 FIO2% 28 03/16/24 04:00 03/16/24 08:00 03/16/24 08:19 Temperature 97.7 F 98.2 F Pulse Rate 81 Pulse Rate [Left] 71 67 Respiratory Rate 18 18 Blood Pressure Blood Pressure [Left Arm] 125/58 115/53 O2 Sat by Pulse Oximetry 96 97 96 Oxygen Delivery Method Nasal Cannula Nasal Cannula Oxygen Flow Rate 2 2 FIO2% 03/16/24 08:19 03/16/24 07:00 03/16/24 11:37 Temperature Pulse Rate Pulse Rate [Left] Respiratory Rate 18 Blood Pressure Blood Pressure [Left Arm] O2 Sat by Pulse Oximetry Oxygen Delivery Method Nasal Cannula Nasal Cannula Oxygen Flow Rate 2 2 FIO2% 28 03/16/24 12:00 03/16/24 12:37 03/16/24 16:00 Temperature 98 F 98.1 F Pulse Rate Pulse Rate [Left] 74 63 Respiratory Rate 18 18 18 Blood Pressure Blood Pressure [Left Arm] 124/59 111/55 O2 Sat by Pulse Oximetry 93 L 97 Oxygen Delivery Method Nasal Cannula Nasal Cannula Oxygen Flow Rate 2 2 FIO2% 03/16/24 20:00 03/16/24 19:00 03/17/24 00:00 Temperature 98.1 F 98.2 F Pulse Rate Pulse Rate [Left] 74 67 Respiratory Rate 22 21 Blood Pressure Blood Pressure [Left Arm] 116/53 107/53 O2 Sat by Pulse Oximetry 96 97 Oxygen Delivery Method Nasal Cannula Nasal Cannula Nasal Cannula Oxygen Flow Rate 2 2 2 FIO2% 03/17/24 04:00 03/16/24 21:25 03/16/24 21:25 Temperature 97.7 F Pulse Rate 70 Pulse Rate [Left] 75 Respiratory Rate 20 Blood Pressure Blood Pressure [Left Arm] 129/60 O2 Sat by Pulse Oximetry 95 96 Oxygen Delivery Method Nasal Cannula Nasal Cannula Oxygen Flow Rate 2 2 FIO2% 28 03/17/24 09:04 03/17/24 09:04 03/17/24 10:24 Temperature Pulse Rate 72 Pulse Rate [Left] Respiratory Rate Blood Pressure Blood Pressure [Left Arm] O2 Sat by Pulse Oximetry 93 L Oxygen Delivery Method Nasal Cannula Nasal Cannula Oxygen Flow Rate 2 2 FIO2% 28 03/17/24 08:00 Temperature 98.2 F Pulse Rate Pulse Rate [Left] 71 Respiratory Rate 20 Blood Pressure Blood Pressure [Left Arm] 134/60 O2 Sat by Pulse Oximetry 94 L Oxygen Delivery Method Nasal Cannula Oxygen Flow Rate 2 FIO2% Labs: Laboratory Last Values WBC 5.7 X10^3/uL (3.6-10.0) 03/17/24 05:43 RBC 3.98 X10^6/uL (3.5-5.4) 03/17/24 05:43 Hgb 12.4 g/dL (12.0-16.0) 03/17/24 05:43 Hct 38.3 % (36.0-47.0) 03/17/24 05:43 MCV 96.1 fL (80.0-100.0) 03/17/24 05:43 MCH 31.0 pg (27.0-34.0) 03/17/24 05:43 MCHC 32.3 g/dL (33.0-35.0) L 03/17/24 05:43 RDW 14.8 % (11.6-16.5) 03/17/24 05:43 Plt Count 194 X10^3/uL (150.0-450.0) 03/17/24 05:43 MPV 7.4 fL (7.4-11.0) 03/17/24 05:43 Neut % (Auto) 67.4 % (42.0-75.0) 03/17/24 05:43 Lymph % (Auto) 16.5 % (21.0-51.0) L 03/17/24 05:43 [place] % (Auto) 10.4 % (0.0-13.0) 03/17/24 05:43 Eos % (Auto) 5.3 % (0.9-2.9) H 03/17/24 05:43 Baso % (Auto) 0.4 % (0.2-1.0) 03/17/24 05:43 Neut # (Auto) 3.9 x10^3/uL (2.2-4.8) 03/17/24 05:43 Lymph # (Auto) 0.9 X10^3/uL (1.3-2.9) L 03/17/24 05:43 [place] # (Auto) 0.6 x10^3/uL (0.3-0.8) 03/17/24 05:43 Eos # (Auto) 0.3 x10^3/uL (0.0-0.2) H 03/17/24 05:43 Baso # (Auto) 0.0 X10^3/uL (0.0-0.1) 03/17/24 05:43 Absolute Nucleated RBC 0.0 /100WBC 03/17/24 05:43 Sample Site Rra 03/14/24 12:37 ABG pH 7.430 (7.35-7.45) 03/14/24 12:37 ABG pCO2 56.0 mmHg (35.0-45.0) H* 03/14/24 12:37 ABG pO2 51.0 mmHg (80.0-100.0) L 03/14/24 12:37 ABG HCO3 37.2 mmol/L (22-26) H* 03/14/24 12:37 ABG O2 Saturation 87.0 % (90-100) L 03/14/24 12:37 ABG Base Excess 10.9 mmol/L (-2.0-2.0) H 03/14/24 12:37 [place] Test Pos 03/14/24 12:37 A-a Gradient 29.0 mmHg 03/14/24 12:37 FiO2 21.0 03/14/24 12:37 Blood Gas Comments Pt derick well eb 03/14/24 12:37 Sodium 147 mmol/L (136-145) H 03/17/24 05:43 Corrected Sodium TNP 03/17/24 05:43 Potassium 4.7 mmol/L (3.5-5.1) 03/17/24 05:43 Chloride 106 mmol/L (98-107) 03/17/24 05:43 Carbon Dioxide 36.5 mmol/L (21-32) H 03/17/24 05:43 BUN 17 mg/dL (7-18) 03/17/24 05:43 Creatinine 0.91 mg/dL (0.55-1.02) 03/17/24 05:43 Est GFR (MDRD) Af Amer > 60 (>60) 03/17/24 05:43 Est GFR (MDRD) Non-Af > 60 (>60) 03/17/24 05:43 Glucose 93 mg/dL (65-99) 03/17/24 05:43 Lactic Acid 0.6 mmol/L (0.4-2.0) 03/14/24 13:10 Calcium 8.3 mg/dL (8.5-10.1) L 03/17/24 05:43 Corrected Calcium 9.4 mg/dL (8.5-10.1) 03/17/24 05:43 Magnesium 2.0 mg/dL (2.0-2.9) 03/15/24 05:15 Total Bilirubin 0.20 mg/dL (0.2-1.0) 03/17/24 05:43 AST 19 Units/L (15-37) 03/17/24 05:43 ALT 30 Units/L (12-78) 03/17/24 05:43 Alkaline Phosphatase 115 Units/L (46-116) 03/17/24 05:43 Troponin I High Sens 23.3 ng/L (4.0-60.0) 03/14/24 13:10 Total Protein 6.3 g/dL (6.4-8.2) L 03/17/24 05:43 Albumin 2.6 g/dL (3.4-5.0) L 03/17/24 05:43 Globulin 3.7 g/dL (2.5-4.5) 03/17/24 05:43 Albumin/Globulin Ratio 0.7 Ratio (1.1-2.1) L 03/17/24 05:43 Specimen Type Clean catch urine 03/16/24 16:45 Urine Color Yellow (YELLOW) 03/16/24 16:45 Urine Appearance Clear (CLEAR) 03/16/24 16:45 Urine pH 6.0 (5.0 - 8.0) 03/16/24 16:45 Ur Specific [place] 1.015 (1.000-1.030) 03/16/24 16:45 Urine Protein Negative (NEGATIVE) 03/16/24 16:45 Urine Glucose (UA) Negative (NEGATIVE) 03/16/24 16:45 Urine Ketones Negative (NEGATIVE) 03/16/24 16:45 Urine Blood Negative (NEGATIVE) 03/16/24 16:45 Urine Nitrite Negative (NEGATIVE) 03/16/24 16:45 Urine Bilirubin Negative (NEGATIVE) 03/16/24 16:45 Urine Urobilinogen Normal (NORMAL) 03/16/24 16:45 Ur Leukocyte Esterase Negative (NEGATIVE) 03/16/24 16:45 Urine RBC 0-2 /HPF (0-3) 03/14/24 12:55 Urine WBC 10-20 /HPF (0-5) A 03/14/24 12:55 Ur Squamous Epith Cells Moderate /HPF (NEGATIVE) 03/14/24 12:55 Urine Bacteria 1+ /HPF (NEGATIVE) 03/14/24 12:55 Ur Culture Indicated? Yes/culture set up 03/14/24 12:55 Urine Opiates Screen Negative (NEG=<300) 03/14/24 12:55 Urine Methadone Screen Negative (NEG=<300) 03/14/24 12:55 Ur Barbiturates Screen Negative (NEG=<200) 03/14/24 12:55 Ur Phencyclidine Scrn Negative (NEG=<25) 03/14/24 12:55 Ur Amphetamines Screen Negative (NEG=<1000) 03/14/24 12:55 U Benzodiazepines Scrn Negative (NEG=<200) 03/14/24 12:55 Urine Cocaine Screen Negative (NEG=<300) 03/14/24 12:55 U Marijuana (THC) Screen Negative (NEG=<50) 03/14/24 12:55 Resp Viral Panel (PCR) See scanned report 03/14/24 16:27 Reason For Visit: HYPOXIC RESPIRATORY FAILURE, PNEUMONIA, UTI, AMS Discharge Diagnosis All Active Problems (Updated 03/18/24 @ 16:04 by Melisa Najera MD) Other symptoms and signs involving the genitourinary system (Acute) Contusion of periorbital region, right (Acute) Fall (Acute) Odontoid fracture (Acute) Contusion of scalp (Acute) DDD (degenerative disc disease), cervical (Acute) Type III fracture of odontoid process with routine healing (Acute) Fracture of wrist, closed (Acute) Laceration of knee, right (Acute) Sprain of left shoulder (Acute) Skin tear (Acute) Closed left femoral fracture (Acute) Left rib fracture (Acute) CHF (congestive heart failure) (Chronic) COVID-19 virus infection (Acute) Acute hypoxic respiratory failure (Acute) AMS (altered mental status) (Acute) Pneumonia (Acute) CHF (congestive heart failure) (Chronic) Insomnia (Chronic) Coronary artery disease (Chronic) Dyslipidemia (Chronic) Hx of squamous cell carcinoma of skin (Chronic) History of skin cancer (Chronic) GERD (gastroesophageal reflux disease) (Chronic) COPD (chronic obstructive pulmonary disease) (Chronic) Hx of acute myocardial infarction (Chronic) Plan of Treatment: Continue with present treatment and follow up plan. Pt is to keep follow up appointment as instructed and take medications as ordered. Discharge Medications Discharge Medications: codeine Allergy (Verified 02/06/17 22:08) hydromorphone [From Dilaudid] Allergy (Verified 02/06/17 22:08) influenza virus vaccine qs [id number] (36 mos, up) [From Single Use EZ Flu] Allergy (Verified 03/24/17 18:04) meperidine [From Demerol] Allergy (Verified 02/06/17 22:08) CONTINUE taking the following medications aluminum-magnesium hydroxide 225 mg-200 mg/5 mL oral suspension 10 ml PO Q2H PRN 03/14/24 [History] biotin 1 mg tablet 1 mg PO DAILY 03/14/24 [History] calcium carb-ergocalciferol (vit D2) 600 mg calcium-200 unit tablet 1 tab PO BID 03/14/24 [History] carboxymethylcellulose sodium 0.5 % eye drops (Refresh Tears) 1 drp ophthalmic (eye) BID 03/14/24 [History] cholecalciferol (vitamin D3) 10 mcg (400 unit) capsule 10 mcg PO DAILY 03/14/24 [History] clonazepam 1 mg tablet 1 mg PO QPM PRN 03/14/24 [History] cyanocobalamin (vitamin B-12) 1,000 mcg/mL injection solution 1,000 mcg IM DAILY 03/14/24 [History] denosumab 60 mg/mL subcutaneous syringe (Prolia) 60 mg subcut Q6M 03/14/24 [History] dextromethorphan-guaifenesin 10 mg-100 mg/5 mL oral liquid (Tussin DM Cough and Chest) 20 ml PO BID 03/14/24 [History] docusate sodium 100 mg capsule 100 mg PO BID 03/14/24 [History] famotidine 40 mg tablet 40 mg PO DAILY 03/14/24 [History] fexofenadine 180 mg tablet 180 mg PO DAILY 03/14/24 [History] fluticasone propionate 50 mcg/actuation nasal spray,suspension (Flonase Allergy Relief) 100 mcg intranasal DAILY 03/14/24 [History] furosemide 20 mg tablet (Lasix) 20 mg PO DAILY 03/14/24 [History] guaifenesin 600 mg tablet, extended release 12 hr (Mucinex) 600 mg PO BID 03/14/24 [History] magnesium 2 tab PO DAILY 03/14/24 [History] selenium 200 mcg tablet 200 mcg PO DAILY 03/14/24 [History] New Prescriptions levofloxacin 500 mg tablet 500 mg PO QDAY 5 days #5 tabs 03/17/24 [Rx] Discharge Disposition Discharge Disposition: [facility] Discharge Condition: Stable Discharge Plan Discharge Plan Hospital Course: Ms Lou is a 83y/o female with a PMH of CAD, CHF, COPD, HTN, HLD, arthritis and GERD who is resident of [facility] presented to the ER with worsening SOB, altered mentation and jerking movements. Patient states she had been sick with URI 2 weeks ago and was treated with abx but continued to get worse. ER work up showed Brain CT which was negative for acute changes. UA was suggestive for infection, CXR concerning for pneumonia. She was started on nebs and Levaquin. She is currently on 2L NC, she does use O2 at the residential prn. Her labs were monitored daily and electrolytes replaced as needed. CT chest was also done w hich showed bilateral scattered opacities and pleural effusion. Urine culture did not grow out anything. Patient remained on Levaquin and bronchodilators. She was doing well. She was able to ambulate to the bathroom, tolerating p.o. intake. She was stable to be discharged back to the residential with oral antibiotics and nebs. Patient Disposition: SNF Condition: Stable Health Concerns: Post Hospitalization: new medications and changes needed to prevent readmission or further decline. Pt educated and given instructions on all concerns. Plan of Treatment: Continue with present treatment and follow up plan. Pt is to keep follow up appointment as instructed and take medications as ordered. Prescription drug monitoring program results: PDMP reviewed and no concerns identified Prescriptions: New levofloxacin 500 mg tablet 500 mg PO QDAY 5 Days Qty: 5 0RF Continued famotidine 40 mg Tablet 40 mg PO DAILY clonazepam 1 mg tablet 1 mg PO QPM PRN fexofenadine 180 mg Tablet 180 mg PO DAILY cyanocobalamin (vitamin B-12) 1,000 mcg/mL Solution 1,000 mcg IM DAILY aluminum-magnesium hydroxide 225-200 mg/5 mL Suspension 10 ml PO Q2H PRN docusate sodium 100 mg Capsule 100 mg PO BID furosemide [Lasix] 20 mg Tablet 20 mg PO DAILY calcium carbonate-vitamin D2 600 mg calcium- 200 unit Tablet 1 tab PO BID fluticasone propionate [Flonase Allergy Relief] 50 mcg/actuation [place],Suspension 100 mcg INTRANASAL DAILY magnesium Tablet 2 tab PO DAILY biotin 1 mg Tablet 1 mg PO DAILY guaifenesin [Mucinex] 600 mg Tablet Extended Release 12hr 600 mg PO BID dextromethorphan-guaifenesin [Tussin DM Cough and Chest] 10-100 mg/5 mL Liquid 20 ml PO BID selenium 200 mcg Tablet 200 mcg PO DAILY carboxymethylcellulose sodium [Refresh Tears] 0.5 % Drops 1 drp OPHTHALMIC (EYE) BID cholecalciferol (vitamin D3) 10 mcg (400 unit) Capsule 10 mcg PO DAILY Prolia 60 mg/mL Syringe 60 mg SUBCUT Q6M sennosides [Senokot] 8.6 mg Tablet 8.6 mg PO DAILY celecoxib 200 mg capsule 200 mg PO QDAY carvedilol 12.5 mg tablet 12.5 mg PO BID ondansetron HCl 8 mg tablet 8 mg PO Q8H clopidogrel 75 mg tablet 75 mg PO QMWF hydrocodone-acetaminophen 10-325 mg tablet 1 tab PO TID PRN potassium chloride 20 mEq/15 mL liquid 10 meq PO DAILY esomeprazole magnesium 40 mg capsule,delayed release(DR/EC) 40 mg PO QDAY gabapentin 300 mg capsule 300 mg PO TID rosuvastatin 40 mg tablet 40 mg PO HS budesonide-formoterol [Symbicort] 160-4.5 mcg/actuation HFA aerosol inhaler 1 inh inhalation BID diclofenac sodium [Voltaren Arthritis Pain] 1 % gel 1 ea TOPICAL BID Patient Comments: [NO ORIGINAL SIG] Xarelto 10 mg tablet 10 mg PO QDAY folic acid 1 mg Tablet 2 mg PO QDAY ferrous fumarate [Hemocyte] 324 mg (106 mg iron) Tablet 324 mg PO DAILY ropinirole 1 mg Tablet 0.5 mg PO BID 0RF Discontinued cefdinir 300 mg capsule 300 mg PO BID Rx Instructions: x 10 days started on 03/12/24 Orders to Discharge Patient Discharge Orders: Discharge (Routine); Ordered 03/17/24 Ordered By: Melisa Najera Follow ups/Referrals Follow ups/Referrals: Justin Valdez [Primary Care Provider] - 3 days Instructions Activity Restrictions/Additional Instructions: CONTINUE DUONEBS EVERY 4HOURS NEEDED x 5 days CONTINUE PULMICORT BID X 5 days Stand Alone Forms: Excuse From Work or School, Post Hospital Follow Up Care
== END 2024-03-17 14:48 | disposition home or self-care (01) | DRG 193 ==
LOC: ER 11:58 → MED/SURG 15:32
PROVIDERS: ADMIT Family Medicine; ATTEND Internal Medicine
DX: Z16.12 Extended spectrum beta lactamase (ESBL) resistance; Z66 Do not resuscitate; Z16.23 Resistance to quinolones and fluoroquinolones; I25.118 Atherosclerotic heart disease of native coronary artery with other forms of angina pectoris; I50.23 Acute on chronic systolic (congestive) heart failure; K21.9 Gastro-esophageal reflux disease without esophagitis; R41.82 Altered mental status, unspecified; R26.89 Other abnormalities of gait and mobility; J44.9 Chronic obstructive pulmonary disease, unspecified; S81.812A Laceration without foreign body, left lower leg, initial encounter; N39.0 Urinary tract infection, site not specified; Z29.89 Encounter for other specified prophylactic measures; X58.XXXA Exposure to other specified factors, initial encounter; I11.0 Hypertensive heart disease with heart failure; R94.31 Abnormal electrocardiogram [ECG] [EKG]; R25.8 Other abnormal involuntary movements; B95.62 Methicillin resistant Staphylococcus aureus infection as the cause of diseases classified elsewhere; R06.02 Shortness of breath; E87.5 Hyperkalemia; J18.8 Other pneumonia, unspecified organism